=== PATIENT | female | born 1950 | race Caucasian/White ===

== ENCOUNTER → 2017-04-12 | Outpatient (CLI) | payer MEDICARE ==
--- NOTE | 2017-04-12 10:54 | MR ---
EXAMINATION TYPE: MR lumbar spine wo con DATE OF EXAM: 04/12/2017 9:54 AM COMPARISON: NONE HISTORY: lumbago Multiplanar, MultiSpin echo imaging of the lumbar spine was performed. L1-L2: Normal disc appearance without desiccation. No herniation, protrusion or disc bulging. No ca nal stenosis is present. Foramina are patent bilaterally. L2-L3: There is moderate disc desiccation. Mild to moderate circumferential disc bulge noted greatest posteriorly with effacement of the ventral thecal sac. There appears to be mild bilateral lateral re cess stenosis. No evidence for central stenosis at this time. Mild facet arthropathy without foramina l encroachment. L3-L4: There is moderate disc desiccation. Mild to moderate circumferential disc bulge noted greatest posteriorly with effacement of the ventral thecal sac. There is constriction of the thecal sac with borderline stenosis noted. There is degenerative facet joint arthropathy with bilateral foraminal enc roachment seen mild in degree. L4-L5: Severe disc desiccation. Broad-based posterior disc bulge with subligamentous herniation noted paracentrally and to the right. Hypertrophy of the ligamentum flavum and facet joint arthropathy res ulting in [id number] central stenosis. There is bilateral foraminal encroachment moderate in de gree right greater than left. L5-S1: Normal disc appearance without desiccation. No herniation, protrusion or disc bulging. No ca nal stenosis is present. Foramina are patent bilaterally. Lumbar segments are intact. No paraspinal masses are identified. Conus medullaris has a normal appe arance. Scattered hemangiomas are noted. IMPRESSION: 1. Low degenerative disc disease. 2. Central stenosis at L4-5 and borderline mild stenosis at L3-4. See above
== END | disposition home or self-care (01) ==
LOC: RADMRIMAIN 09:08
PROVIDERS: ATTEND Nurse Practitioner Acute Care
DX: M51.36 Other intervertebral disc degeneration, lumbar region (principal); M48.06 Spinal stenosis, lumbar region
CPT/HCPCS: 72148

== ENCOUNTER 2017-04-25 09:33 | Observation (INO) | payer MEDICARE ==
[2017-04-25] MEDS ORDERED: NITROGLYCERIN OINT 1 INCH/GM PACKET TOPICAL STA (09:56)
[2017-04-25] MEDS ORDERED: ASPIRIN 81 MG CHEW PO STA (09:56)
--- NOTE | 2017-04-25 09:59 | ED ---
General Adult HPI - General Chief complaint: Chest Pain Stated complaint: chest pressure, jaw pain Time Seen by Provider: 04/25/17 09:35 Source: patient, RN notes reviewed Mode of arrival: wheelchair Limitations: no limitations - History of Present Illness Initial comments: This is a 67-year-old female who is morbidly obese and has a past medical history significant for diabetes and hypertension. Patient comes in today stating that she has anterior chest discomfort and his been ongoing about a week. Patient states she's also more short of breath than normal. Patient thinks she's also has more edema on her legs. Patient denies any recent fever chills or cough. Patient denies any radiation of the pain. Patient states she also has had a mild headache over the last week. Patient denies any abdominal pain patient denies nausea vomiting diarrhea. Patient denies any calf pain. Patient denies any recent injury or trauma. - Related Data Home Medications Medication Instructions Recorded Confirmed Atenolol [Tenormin] 25 mg PO BID 04/26/15 04/25/17 Cetirizine HCl [Zyrtec] 10 mg PO DAILY 04/26/15 04/25/17 Insulin Glargine [Lantus] 60 unit SQ HS 04/26/15 04/25/17 Multivitamin with Iron [Daily 1 tab PO DAILY 04/26/15 04/25/17 Multivitamin with Iron] Naproxen [Naprosyn] 250 mg PO DAILY PRN 04/26/15 04/25/17 [place]-3 Fatty Acids/Fish Oil [Fish 1 cap PO Q72H 04/26/15 04/25/17 Oil 1,000 mg Softgel] Calcium Carbonate/Vitamin D3 1 tab PO Q72H 08/28/16 04/25/17 [Calcium 600-Vit D3 200 Tablet] Cholecalciferol [Vitamin D3] 3,000 unit PO Q72H 08/28/16 04/25/17 Ginkgo Biloba [place] Extract [Ginkgo] 60 mg PO DAILY 08/28/16 04/25/17 Panax Ginseng Root Extract 100 mg PO DAILY 08/28/16 04/25/17 [Ginseng] Vitamin B Complex 1 cap PO Q72H 08/28/16 04/25/17 metFORMIN HCL [Glucophage] 500 mg PO DAILY 08/28/16 04/25/17 Aspirin 162 mg PO DAILY 04/25/17 04/25/17 Furosemide [Lasix] 20 mg PO DAILY PRN 04/25/17 04/25/17 HYDROcodone/APAP 7.5-325MG [[place] 1 tab PO Q4H PRN 04/25/17 04/25/17 7.5-325] Insulin Aspart [NovoLOG] 6 unit SQ ACHS PRN 04/25/17 04/25/17 Losartan Potassium [Cozaar] 50 mg PO DAILY 04/25/17 04/25/17 Magnesium 200 mg PO Q72H 04/25/17 04/25/17 Potassium Chloride ER [K-Dur 10] 10 meq PO DAILY PRN 04/25/17 04/25/17 Pregabalin [Lyrica] 75 mg PO HS 04/25/17 04/25/17 Ranitidine HCl [Zantac] 300 mg PO DAILY 04/25/17 04/25/17 Sertraline [Zoloft] 50 mg PO DAILY PRN 04/25/17 04/25/17 Allergies Allergy/AdvReac Type Severity Reaction Status Date / Time adhesive tape Allergy Rash/Hives Verified 04/25/17 10:50 Iodinated Contrast Media - Allergy Swelling, Verified 04/25/17 10:50 Oral and SHORTNESS [Iodinated Contrast Media - OF BREATH IV Dye] latex Allergy Rash/Hives Verified 04/25/17 10:50 talc Allergy Rash/Hives Verified 04/25/17 10:50 Review of Systems ROS Statement: Those systems with pertinent positive or pertinent negative responses have been documented in the HPI. ROS Other: All systems not noted in ROS Statement are negative. Past Medical History Past Medical History: CVA/TIA, Diabetes Mellitus, Hypertension, Osteoarthritis ( OA), Thyroid Disorder Additional Past Medical History / Comment(s): NODULES ON THYROID, CURRENT PROBLEMS WITH LOSING HER BALANCE. History of Any Multi-Drug Resistant Organisms: None Reported Past Surgical History: Breast Surgery, Hysterectomy, Tubal Ligation Additional Past Surgical History / Comment(s): TIA 2008, thyroid biopsy, rt knee surgery, TOE SURGERY ON BILATERAL FOOT, D&C, LEFT CATARACT SURGERY. Past Anesthesia/Blood Transfusion Reactions: Motion Sickness Additional Past Anesthesia/Blood Transfusion Reaction / Comment(s): LOW BLOOD PRESSURE WITH SURGERY. STATES PROBLEMS WITH MEMORY WITH ANESTHESIA " Past Psychological History: Anxiety, Bipolar, Depression Smoking Status: Never smoker Past Alcohol Use History: None Reported Past Drug Use History: None Reported - Past Family History Father Family Medical History: Cancer Additional Family Medical History / Comment(s): LUNG, BONE, THROAT AND MOUTH CANCER Brother(s) Family Medical History: Cancer Mother Family Medical History: Cancer Additional Family Medical History / Comment(s): lung cancer- mother General Exam - General Exam Comments Initial Comments: GENERAL: Patient is well-developed and well-nourished. Patient is nontoxic and well- hydrated and is in mild distress. ENT: Neck is soft and supple. No significant lymphadenopathy is noted. Oropharynx is clear. Moist mucous membranes. Neck has full range of motion without eliciting any pain. EYES: The sclera were anicteric and conjunctiva were pink and moist. Extraocular movements were intact and pupils were equal round and reactive to light. Eyelids were unremarkable. PULMONARY: Unlabored respirations. Good breath sounds bilaterally. No audible rales rhonchi or wheezing was noted. CARDIOVASCULAR: There is a regular rate and rhythm without any murmurs gallops or rubs. ABDOMEN: Soft and nontender with normal bowel sounds. No palpable organomegaly was noted. There is no palpable pulsatile mass. SKIN: Skin is clear with no lesions or rashes and otherwise unremarkable. NEUROLOGIC: Patient is alert and oriented x3. Cranial nerves II through XII are grossly intact. Motor and sensory are also intact. Normal speech, volume and content. Symmetrical smile. MUSCULOSKELETAL: Normal extremities with adequate strength and full range of motion. Scant edema at the ankles. LYMPHATICS: No significant lymphadenopathy is noted PSYCHIATRIC: Normal psychiatric evaluation. Normal interpersonal interactions appears functionally intact in deals appropriately with others. No signs of depression. No signs of anxiety. Limitations: no limitations Course Vital Signs 04/25/17 04/25/17 04/25/17 09:35 10:10 11:41 Temperature 99.2 F Pulse Rate 67 69 62 Respiratory 20 18 16 Rate Blood Pressure 233/112 219/87 163/70 O2 Sat by Pulse 95 98 94 L Oximetry Medical Decision Making - Medical Decision Making EKG shows a sinus rhythm with occasional PAC at 73 bpm NV interval 170 QRS is 90 QT interval 370 QTC is 407. Patient's EKG shows no ST segment elevation or depression or T-wave abnormality is noted. Patient's cardiac enzymes are normal but she continues to have intermittent chest pain therefore put her on heparin consider unstable angina. I spoke with Dr. Morrison he admitted the patient I wrote admitting orders and consult cardiology I continue the patient's heparin aspirin Nitropaste on the floor. - Lab Data Result diagrams: 04/25/17 10:04 04/25/17 10:04 Lab Results 04/25/17 04/25/17 04/25/17 Range/Units 10:04 10:04 10:04 WBC 7.7 (3.8-10.6) k/uL RBC 4.62 (3.80-5.40) m/uL Hgb 12.9 (11.4-16.0) gm/dL Hct 39.1 (34.0-46.0) % MCV 84.7 (80.0-100.0) fL MCH 28.0 (25.0-35.0) pg MCHC 33.1 (31.0-37.0) g/dL RDW 14.8 (11.5-15.5) % Plt Count 245 (150-450) k/uL Neutrophils % 55 % Lymphocytes % 33 % Monocytes % 5 % Eosinophils % 5 % Basophils % 1 % Neutrophils # 4.2 (1.3-7.7) k/uL Lymphocytes # 2.5 (1.0-4.8) k/uL Monocytes # 0.4 (0-1.0) k/uL Eosinophils # 0.4 (0-0.7) k/uL Basophils # 0.0 (0-0.2) k/uL PT (9.0-12.0) sec INR (<1.1) APTT (22.0-30.0) sec D-Dimer (<0.60) mg/L FEU Sodium 141 (137-145) mmol/L Potassium 4.0 (3.5-5.1) mmol/L Chloride 104 (98-107) mmol/L Carbon Dioxide 27 (22-30) mmol/L Anion Gap 10 mmol/L BUN 20 H (7-17) mg/dL Creatinine 0.72 (0.52-1.04) mg/dL Est GFR (MDRD) Af Amer >60 (>60 ml/min/1.73 sqM) Est GFR (MDRD) Non-Af >60 (>60 ml/min/1.73 sqM) Glucose 204 H (74-99) mg/dL Calcium 10.3 H (8.4-10.2) mg/dL Magnesium 1.8 (1.6-2.3) mg/dL Total Bilirubin 0.8 (0.2-1.3) mg/dL AST 19 (14-36) U/L ALT 28 (9-52) U/L Alkaline Phosphatase 101 (38-126) U/L Total Creatine Kinase 46 (30-135) U/L CK-MB (CK-2) 1.4 (0.0-2.4) ng/mL CK-MB (CK-2) Rel Index 3.0 Troponin I <0.012 (0.000-0.034) ng/mL NT-Pro-B Natriuret Pep pg/mL Total Protein 6.7 (6.3-8.2) g/dL Albumin 3.9 (3.5-5.0) g/dL Amylase 37 (30-110) U/L Lipase 19 L (23-300) U/L 04/25/17 04/25/17 Range/Units 10:04 10:04 WBC (3.8-10.6) k/uL RBC (3.80-5.40) m/uL Hgb (11.4-16.0) gm/dL Hct (34.0-46.0) % MCV (80.0-100.0) fL MCH (25.0-35.0) pg MCHC (31.0-37.0) g/dL RDW (11.5-15.5) % Plt Count (150-450) k/uL Neutrophils % % Lymphocytes % % Monocytes % % Eosinophils % % Basophils % % Neutrophils # (1.3-7.7) k/uL Lymphocytes # (1.0-4.8) k/uL Monocytes # (0-1.0) k/uL Eosinophils # (0-0.7) k/uL Basophils # (0-0.2) k/uL PT 9.9 (9.0-12.0) sec INR 1.0 (<1.1) APTT 22.5 (22.0-30.0) sec D-Dimer 0.49 (<0.60) mg/L FEU Sodium (137-145) mmol/L Potassium (3.5-5.1) mmol/L Chloride (98-107) mmol/L Carbon Dioxide (22-30) mmol/L Anion Gap mmol/L BUN (7-17) mg/dL Creatinine (0.52-1.04) mg/dL Est GFR (MDRD) Af Amer (>60 ml/min/1.73 sqM) Est GFR (MDRD) Non-Af (>60 ml/min/1.73 sqM) Glucose (74-99) mg/dL Calcium (8.4-10.2) mg/dL Magnesium (1.6-2.3) mg/dL Total Bilirubin (0.2-1.3) mg/dL AST (14-36) U/L ALT (9-52) U/L Alkaline Phosphatase (38-126) U/L Total Creatine Kinase (30-135) U/L CK-MB (CK-2) (0.0-2.4) ng/mL CK-MB (CK-2) Rel Index Troponin I (0.000-0.034) ng/mL NT-Pro-B Natriuret Pep 442 pg/mL Total Protein (6.3-8.2) g/dL Albumin (3.5-5.0) g/dL Amylase (30-110) U/L Lipase (23-300) U/L Disposition Clinical Impression: Unstable angina pectoris Disposition: ADMITTED IP TO THIS [facility] Referrals: Hattie Galeano DO [Primary Care Provider] - 1-2 days Time of Disposition: 13:03
[2017-04-25 10:30] LABS: Basophils % (A) 1 %; CH 28.8; CHCM 34.2; Eosinophils # (A) 0.4 k/uL (0-0.7); Eosinophils % (A) 5 %; HCT 39.1 % (34.0-46.0); HDW 3.11; HGB 12.9 gm/dL (11.4-16.0); Luc # (Auto) 0.19; Luc % (Auto) 3; Lymphocytes # (A) 2.5 k/uL (1.0-4.8); Lymphocytes % (A) 33 %; MCHC 33.1 g/dL (31.0-37.0); MCV 84.7 fL (80.0-100.0); Mean Platelet Volume 6.8; Monocytes # (A) 0.4 k/uL (0-1.0); Monocytes % (A) 5 %; Neutrophils # (A) 4.2 k/uL (1.3-7.7); Neutrophils % (A) 55 %; RBC 4.62 m/uL (3.80-5.40); RDW 14.8 % (11.5-15.5); WBC 7.7 k/uL (3.8-10.6)
[2017-04-25 10:31] LABS: ALT 28 U/L (9-52); AST 19 U/L (14-36); Alkaline Phosphatase 101 U/L (38-126); Amylase 37 U/L (30-110); Anion Gap 10 mmol/L; Blood Urea Nitrogen 20 mg/dL (7-17); Calcium 10.3 mg/dL (8.4-10.2); Carbon Dioxide 27 mmol/L (22-30); Chloride 104 mmol/L (98-107); Glucose 204 mg/dL (74-99); Magnesium 1.8 mg/dL (1.6-2.3); Non-African American GFR(MDRD) >60 (>60 ml/min/1.73 sqM); Sodium 141 mmol/L (137-145); Total Bilirubin 0.8 mg/dL (0.2-1.3); Total Protein 6.7 g/dL (6.3-8.2)
[2017-04-25 10:39] LABS: Partial Thromboplastin Time 22.5 sec (22.0-30.0); Prothrombin Time 9.9 sec (9.0-12.0)
[2017-04-25 10:46] LABS: Creatine Kinase 46 U/L (30-135)
[2017-04-25 10:57] LABS: Creatine Kinase MB 1.4 ng/mL (0.0-2.4); Troponin I <0.012 ng/mL (0.000-0.034)
--- NOTE | 2017-04-25 11:15 | XR ---
EXAMINATION TYPE: XR chest 2V DATE OF EXAM: 04/25/2017 COMPARISON: NONE HISTORY: Chest pain for one week. TECHNIQUE: Frontal and lateral views of the chest are obtained. FINDINGS: There is no focal air space opacity, pleural effusion, or pneumothorax seen. There is slig htly elevated anterior leaflet of right hemidiaphragm. The cardiac silhouette size is within normal limits with atherosclerotic change in aortic knob. The osseous structures are intact. IMPRESSION: No acute process.
[2017-04-25] MEDS ORDERED: HEPARIN SODIUM,PORCINE 5,000 UNIT/ML 1 ML VIAL IV ONE (12:23)
[2017-04-25] MEDS ORDERED: HEPARIN SODIUM,PORCINE/D5W PMX 25,000 UNIT in DEXTROSE/WATER 1 500ML.BAG IV SCH (12:30)
[2017-04-25] MEDS ORDERED: NITROGLYCERIN SL TABS 0.4 MG TAB SUBLINGUAL PRN (13:03)
[2017-04-25 13:31] VITALS: RESP 18
[2017-04-25] MEDS ORDERED: NAPROXEN 250 MG TAB PO PRN (16:00)
[2017-04-25] MEDS ORDERED: POTASSIUM CHLORIDE ER 10 MEQ TAB.ER.PRT PO PRN (16:00)
[2017-04-25] MEDS ORDERED: FUROSEMIDE 20 MG TAB PO PRN (16:00)
[2017-04-25] MEDS ORDERED: HYDROcodone/APAP 7.5-325MG 1 EACH TAB PO PRN (16:00)
[2017-04-25] MEDS ORDERED: hydrALAZINE HCL 20 MG/ML 1 ML VIAL IVP PRN (16:08)
[2017-04-25] MEDS ORDERED: LOSARTAN 50 MG TAB PO STA (16:13)
[2017-04-25 16:36] LABS: Creatine Kinase 40 U/L (30-135)
[2017-04-25 16:50] LABS: Troponin I <0.012 ng/mL (0.000-0.034)
[2017-04-25 17:12] LABS: Glucose,Whole Blood 162 mg/dL (75-99)
--- NOTE | 2017-04-25 17:52 | CONS ---
DATE OF CONSULTATION: CHIEF COMPLAINT: Uncontrolled hypertension. This is a 67-year-old lady who is morbidly obese, has history of diabetes and hypertension. She comes in complaining of poorly controlled blood pressures and some discomfort in her chest. She describes it as a mild chest pressure without definite radiation to neck, arm or back, unassociated with diaphoresis and unrelated to exertion. At the time of my evaluation she is pain-free and she states that her main problem is the poorly controlled blood pressure. Two sets of cardiac enzymes have been negative. An EKG shows sinus rhythm without acute ST-T wave changes. Blood pressure is still somewhat poorly controlled, and I just altered her medication. I think the first order of business is to control her blood pressure well, obtain a 2-D echo to assess her LV function, and once the blood pressure is well controlled, discharge her home and consider an outpatient stress test. Past medical history is significant for: 1. Hypertension. 2. Insulin-requiring diabetes. 3. Dyslipidemia. Current medications include: 1. Insulin. 2. Magnesium. 3. Cozaar. 4. Glucophage. 5. Zyrtec. 6. Lasix. 7. Atenolol. 8. Aspirin. 9. K-Dur. ALLERGIES: 1. IV DYE. 2. TALC. 3. LATEX. Family history is negative for premature coronary artery disease. SOCIAL HISTORY: Negative for current smoking, ETOH abuse or drug abuse. REVIEW OF SYSTEMS: HEENT: Unremarkable. CARDIAC: As described above. RESPIRATORY: Negative. GI: Negative. GENITOURINARY: Negative. ALLERGY/IMMUNOLOGY: Negative. MUSCULOSKELETAL: Significant for arthritis. PSYCHOSOCIAL: Negative. ENDOCRINE: Negative. DERMATOLOGY: Negative. CONSTITUTIONAL: Negative. ONCOLOGICAL: Negative. The rest of the systems review is not relevant. On exam, afebrile. Heart rate is 68 beats per minute. Blood pressure is 210/127. Respiratory rate is 18. There is ( ) jugular venous distention. Carotid upstroke is normal. There is no bruit. Chest exam reveals good air entry bilaterally. Heart exam reveals first and second heart sounds and S4 is heard. Abdomen is soft. Examination of extremities did not reveal any edema. Peripheral pulses are felt. Labs show that the hemoglobin is 12.9. Platelet count is 245. Potassium is 4. Creatinine is 0.7. Troponins are normal. EKG does not reveal ischemic changes. ASSESSMENT: 1. Severe uncontrolled hypertension. 2. Chest pain, probably related to the uncontrolled hypertension. PLAN: Myocardial infarction is ruled out. I am going to ( ) the IV heparin, add Norvasc and hydralazine to her current medical regimen. If necessary add Catapres tomorrow. I will obtain a 2-D echocardiogram on her to assess her LV function.
[2017-04-25] MEDS: hydrALAZINE HCL 50 MG TAB PO SCH ×2 (18:39→20:16)
[2017-04-25] MEDS: NITROGLYCERIN OINT 1 INCH/GM PACKET TOPICAL SCH (18:41)
[2017-04-25] MEDS: ATENOLOL 25 MG TAB PO SCH (20:16)
[2017-04-25 20:43] LABS: Glucose,Whole Blood 298 mg/dL (75-99)
[2017-04-25] MEDS ORDERED: INSULIN GLARGINE 100 UNIT/ML 10 ML VIAL SQ SCH (21:00)
[2017-04-25] MEDS ORDERED: SERTRALINE 50 MG TAB PO PRN (21:00)
[2017-04-25] MEDS ORDERED: PREGABALIN 75 MG CAP PO SCH (21:00)
[2017-04-25] MEDS: INSULIN LISPRO (humaLOG) 300 UNIT/3 ML VIAL SQ SCH (21:27)
[2017-04-25 23:22] LABS: Creatine Kinase 36 U/L (30-135)
[2017-04-25 23:32] LABS: Creatine Kinase MB 1.2 ng/mL (0.0-2.4); Troponin I <0.012 ng/mL (0.000-0.034)
[2017-04-26] MEDS: NITROGLYCERIN OINT 1 INCH/GM PACKET TOPICAL SCH ×3 (00:20→12:02)
[2017-04-26 03:49] LABS: Cholesterol 187 mg/dL (<200); HDL Cholesterol 48 mg/dL (40-60); Triglycerides 117 mg/dL (<150)
[2017-04-26 07:05] LABS: Glucose,Whole Blood 147 mg/dL (75-99)
[2017-04-26 08:21] VITALS: PULSE 74; TEMP 98.6
[2017-04-26] MEDS: hydrALAZINE HCL 50 MG TAB PO SCH (08:23)
[2017-04-26] MEDS: ATENOLOL 25 MG TAB PO SCH (08:24)
[2017-04-26] MEDS: INSULIN LISPRO (humaLOG) 300 UNIT/3 ML VIAL SQ SCH ×4 (08:25→12:09)
--- NOTE | 2017-04-26 08:27 | PN ---
Karly is a 67-year-old lady who was admitted to hospital with severe uncontrolled blood pressure and vague atypical chest pain. She is doing very well this morning. Blood pressure is better controlled. Chest pain has resolved. Myocardial infarction is ruled out. On exam, comfortable at rest. Vital signs are stable. There is no jugular venous distention. Carotid upstroke is normal. Chest exam reveals good air entry bilaterally. Exam of the extremities did not reveal any edema. The patient is on amlodipine 10 mg daily, aspirin, Tenormin 25 b.i.d., Cozaar 100 mg daily, which she is going to continue. ASSESSMENT: 1. Uncontrolled hypertension. 2. Atypical chest pain. PLAN: The patient is doing well. Myocardial infarction is ruled out. Blood pressures are better controlled. We will do an echocardiogram on her. If this looks good, she can be discharged home and workup pursued in the outpatient setting.
[2017-04-26] MEDS ORDERED: LOSARTAN 50 MG TAB PO SCH (09:00)
[2017-04-26] MEDS ORDERED: ASPIRIN 81 MG CHEW PO SCH (09:00)
[2017-04-26] MEDS ORDERED: amLODIPine 10 MG TAB PO SCH (09:00)
[2017-04-26] MEDS ORDERED: metFORMIN 500 MG TAB PO SCH (09:00)
[2017-04-26] MEDS ORDERED: ASPIRIN 325 MG TAB PO SCH (09:00)
[2017-04-26] MEDS ORDERED: LORATADINE 10 MG TAB PO SCH (09:00)
[2017-04-26] MEDS ORDERED: FAMOTIDINE 20 MG TAB PO SCH (09:00)
--- NOTE | 2017-04-26 09:22 | ECHOF ---
Referral Reason:chest pain MEASUREMENTS -------- HEIGHT: 167.6 cm WEIGHT: 136.1 kg BP: 147/70 RVIDd: 2.3 cm (< 3.3) IVSd: 1.6 cm (0.6 - 1.1) LVIDd: 4.4 cm (3.9 - 5.3) LVPWd: 1.5 cm (0.6 - 1.1) IVSs: 1.8 cm LVIDs: 2.7 cm LVPWs: 1.8 cm LAESV Index (A-L): 21.53 ml/m Ao Diam: 3.1 cm (2.0 - 3.7) AV Cusp: 2.0 cm (1.5 - 2.6) LA Diam: 4.2 cm (2.7 - 3.8) MV EXCURSION: 14.230 mm (> 18.000) MV EF SLOPE: 78 mm/s (70 - 150) EPSS: 0.7 cm MV E Rocky: 1.28 m/s MV DecT: 325 ms MV A Rocky: 1.31 m/s MV E/A Ratio: 0.97 RAP: 5.00 mmHg RVSP: 8.09 mmHg FINDINGS -------- Sinus rhythm with extra systolic beats. This was a technically adequate study. There is moderate concentric left ventricular hypertrophy. Overall left ventricular systolic function is normal with, an EF between 55 - 60 %. The right ventricle is normal in size and function. Normal LA size by volume 22+/-6 ml/m2. The right atrium is normal in size. Aortic valve is trileaflet and is mildly thickened. There is no evidence of aortic regurgitation. There is no evidence of aortic stenosis. The mitral valve leaflets are mildly thickened. There is trace to mild mitral regurgitation. Trace tricuspid regurgitation present. There is no evidence of pulmonary hypertension. The right ventricular systolic pressure, as measured by Doppler, is 8.09mmHg. The pulmonic valve was not well visualized. The aortic root size is normal. Normal inferior vena cava with normal inspiratory collapse consistent with estimated right atrial pressure of 5 mmHg. The pericardium is normal. There is no pericardial effusion. CONCLUSIONS -------- 1. Sinus rhythm with extra systolic beats. 2. The right ventricular systolic pressure, as measured by Doppler, is 8.09mmHg. 3. The pulmonic valve was not well visualized. 4. The aortic root size is normal. 5. There is no pericardial effusion. 6. There is moderate concentric left ventricular hypertrophy. 7. Overall left ventricular systolic function is normal with, an EF between 55 - 60 %. 8. Normal LA size by volume 22+/-6 ml/m2. 9. Aortic valve is trileaflet and is mildly thickened. 10. The mitral valve leaflets are mildly thickened. 11. There is trace to mild mitral regurgitation. 12. Trace tricuspid regurgitation present. 13. There is no evidence of pulmonary hypertension. HORTICULTURAL WORKER: John Davis RDCS
--- NOTE | 2017-04-26 10:56 | P.HPIM ---
History of Present Illness H&P Date: 04/26/17 Chief Complaint: Chest pain Is a 67-year-old female with a known past medical history of diabetes mellitus type 2, hypertension, CVA, and depression. Patient presents to emergency room with complaints of chest pain or not-like symptom in the center of her chest. She also had some numbness in the jaw. She's been dealing with this pain for about a week with no improvement. Therefore she came into the emergency room for further evaluation. She also noted that her symptoms sometimes worsened with food. She was found to have a blood pressure of 233/112. She did receive IVIG hydralazine. Cardiology was consulted. They added Norvasc hydralazine and Cozaar. Troponins were negative 3 sets. Chest x-ray was negative and EKG had shown sinusrhythmwithPACs.[id number]%.MIhadbeenruledout.Patient' schestpainsymptomshaveimprovedsincecontrolofherbloodpressure. Patient denies any shortness of breath. Denies any nausea or vomiting. Denies any new bowel movement changes. She does constantly have a few days of constipation and then diarrhea. And she reports her bowel movements have all been brown. About 3 weeks ago she noticed one black stool. And her last colonoscopy was in 2006. She reports having some polyps removed. Hemoglobin is 12.9. 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 History of Any Multi-Drug Resistant Organisms: None Reported Past Surgical History: Breast Surgery, Hysterectomy, Orthopedic Surgery, Tubal Ligation Additional Past Surgical History / Comment(s): thyroid biopsies, rt knee arthroscopic surgery, bilateral feet hammer toe repairs, D&C, bilateral CATARACT SURGERY with lens implants, colonoscopies, bilateral breast lumpectomies-benign, tilt table test. Past Anesthesia/Blood Transfusion Reactions: Motion Sickness Additional Past Anesthesia/Blood Transfusion Reaction / Comment(s): LOW BLOOD PRESSURE WITH SURGERY. STATES PROBLEMS WITH MEMORY WITH ANESTHESIA " Past Psychological History: Anxiety, Bipolar, Depression Additional Psychological History / Comment(s): Pt states she has manic/ depression. She takes zoloft when she feels she needs it. She resides with her spouse. She usea a cane at times. she drives. Her is not well-he has dementia and heart problems. She has no home care but he has [facility] once a week. Smoking Status: Never smoker Past Alcohol Use History: None Reported Past Drug Use History: None Reported - Past Family History Father Family Medical History: Cancer Additional Family Medical History / Comment(s): Father had lymphoma. He had LUNG, BONE, THROAT AND MOUTH CANCER Brother(s) Family Medical History: Cancer Mother Family Medical History: Cancer Additional Family Medical History / Comment(s): lung cancer- mother. She at the age of 79yrs from esophageal valencia after radiation-unable to eat. Medications and Allergies Home Medications Medication Instructions Recorded Confirmed Type Atenolol [Tenormin] 25 mg PO BID 04/26/15 04/25/17 History Cetirizine HCl [Zyrtec] 10 mg PO DAILY 04/26/15 04/25/17 History Insulin Glargine [Lantus] 60 unit SQ HS 04/26/15 04/25/17 History Multivitamin with Iron [Daily 1 tab PO DAILY 04/26/15 04/25/17 History Multivitamin with Iron] Naproxen [Naprosyn] 250 mg PO DAILY PRN 04/26/15 04/25/17 History [place]-3 Fatty Acids/Fish Oil [Fish 1 cap PO Q72H 04/26/15 04/25/17 History Oil 1,000 mg Softgel] Calcium Carbonate/Vitamin D3 1 tab PO Q72H 08/28/16 04/25/17 History [Calcium 600-Vit D3 200 Tablet] Cholecalciferol [Vitamin D3] 3,000 unit PO Q72H 08/28/16 04/25/17 History Ginkgo Biloba [place] Extract [Ginkgo] 60 mg PO DAILY 08/28/16 04/25/17 History Panax Ginseng Root Extract 100 mg PO DAILY 08/28/16 04/25/17 History [Ginseng] Vitamin B Complex 1 cap PO Q72H 08/28/16 04/25/17 History metFORMIN HCL [Glucophage] 500 mg PO DAILY 08/28/16 04/25/17 History Aspirin 162 mg PO DAILY 04/25/17 04/25/17 History Furosemide [Lasix] 20 mg PO DAILY PRN 04/25/17 04/25/17 History HYDROcodone/APAP 7.5-325MG [[place] 1 tab PO Q4H PRN 04/25/17 04/25/17 History 7.5-325] Insulin Aspart [NovoLOG] 6 unit SQ AC-TID PRN 04/25/17 04/25/17 History Insulin Aspart [NovoLOG] See Protocol SQ AC-TID 04/25/17 04/25/17 History Losartan Potassium [Cozaar] 50 mg PO DAILY 04/25/17 04/25/17 History Magnesium 200 mg PO Q72H 04/25/17 04/25/17 History Potassium Chloride ER [K-Dur 10] 10 meq PO DAILY PRN 04/25/17 04/25/17 History Pregabalin [Lyrica] 75 mg PO HS 04/25/17 04/25/17 History Ranitidine HCl [Zantac] 300 mg PO DAILY 04/25/17 04/25/17 History Sertraline [Zoloft] 50 mg PO DAILY PRN 04/25/17 04/25/17 History Allergies Allergy/AdvReac Type Severity Reaction Status Date / Time adhesive tape Allergy Rash/Hives Verified 04/25/17 10:50 Iodinated Contrast Media - Allergy Swelling, Verified 04/25/17 10:50 Oral and SHORTNESS [Iodinated Contrast Media - OF BREATH IV Dye] latex Allergy Rash/Hives Verified 04/25/17 10:50 talc Allergy Rash/Hives Verified 04/25/17 10:50 Physical Exam Vitals: Vital Signs Temp Pulse Pulse Resp BP BP Pulse Ox 04/26/17 08:00 98.6 F 74 18 139/67 94 L 04/26/17 04:00 98 F 81 18 147/70 97 04/26/17 03:00 87 18 04/25/17 23:44 98.4 F 69 18 173/74 96 04/25/17 23:38 73 18 04/25/17 20:00 71 18 04/25/17 19:38 98.1 F 69 18 171/74 100 04/25/17 18:15 214/88 04/25/17 15:12 98.4 F 68 18 210/127 96 04/25/17 13:30 97.6 F 62 18 180/76 97 04/25/17 11:41 62 16 163/70 94 L Intake and Output 04/25/17 04/26/17 04/26/17 22:59 06:59 14:59 Intake Total 360 420 Balance 360 420 Intake: Oral 360 420 Other: Voiding Method Toilet Toilet Toilet # Voids 2 2 Head normocephalic Neck supple Lungs clear to auscultation bilaterally no wheezing or crackles Heart regular rate and rhythm S1-S2, no rub or gallop Abdomen is soft nontender nondistended positive bowel sounds no hepatosplenomegaly Extremities no edema Neuro alert and orientated to 3 Results CBC & Chem 7: 04/25/17 10:04 04/25/17 10:04 Labs: Abnormal Lab Results - Last 24 Hours (Table) 04/25/17 04/25/17 04/25/17 Range/Units 10:04 17:09 20:40 POC Glucose (mg/dL) 162 H 298 H (75-99) mg/dL LDL Cholesterol, Calc 116 H (0-99) mg/dL 04/26/17 Range/Units 07:02 POC Glucose (mg/dL) 147 H (75-99) mg/dL LDL Cholesterol, Calc (0-99) mg/dL Thrombosis Risk Factor Assmnt - Choose All That Apply Any of the Below Risk Factors Present?: Yes Each Factor Represents 1 point: Obesity (BMI >25) Other Risk Factors: Yes Each Risk Factor Represents 2 Points: Age 61-74 years Other congenital or acquired thrombophilia - If yes, enter type in comment: No Thrombosis Risk Factor Assessment Total Risk Factor Score: 3 Thrombosis Risk Factor Assessment Level: Moderate Risk Assessment and Plan Plan: 1. Chest pain likely secondary to the elevated blood pressures. PA ruled out. Troponins negative 3 sets. EKG normal sinus rhythm with PACs. Cardiology evaluated patient. Echo showing an EF of 55-60% with trace mitral regurgitation and tricuspid regurgitation. 2. Hypertensive emergency: Blood pressure 233/112 on admission. After medications blood pressure this morning is 139/67. Norvasc, hydralazine and Cozaar have been added 3. Diabetes mellitus type 2 4. Essential hypertension 5. History of CVA in 2008 Anticipate discharge this afternoon. Time with Patient: Greater than 30 (Greater than 50% of the total time spent in counseling and coordination of care.I performed an examination of the patient and discussed their management with the physician Retail Seasonal Specialist. I have reviewed the Physician Retail Seasonal Specialist's notes and agree with the documented findings and plan of care)
--- NOTE | 2017-04-26 11:08 | P.DS ---
Providers Date of admission: 04/25/17 13:03 Expected date of discharge: 04/26/17 Attending physician: Orestes Morrison Consults: 04/25/17 13:03 Consult Physician Urgent Consulting Provider: [facility] Reason/Comments: Unstable angina Do you want consulting provider notified?: Yes Primary care physician: [facility] Course: Discharge diagnosis 1. Chest pain likely secondary to the elevated blood pressures. IL ruled out. Troponins negative 3 sets. EKG normal sinus rhythm with PACs. Cardiology evaluated patient. Echo showing an EF of 55-60% with trace mitral regurgitation and tricuspid regurgitation and left hypertrophy 2. Hypertensive emergency: Blood pressure 233/112 on admission. After medications blood pressure this morning is 139/67. Norvasc, hydralazine and Cozaar have been added 3. Diabetes mellitus type 2 4. Essential hypertension 5. History of CVA in 2008 6. Patient reports black stools at home about 3 weeks ago. Stools within the last couple weeks and yesterday were out brown. Hemoglobin 12.9. Last colonoscopy 2006 and will likely need another colonoscopy workup completed an outpatient setting. This has been discussed with patient. We'll have her follow-up with her PCP in the office. Hospital course This is a 67-year-old female presented with just chest pain in the center of her chest felt like not. Also some numbness in the jaw bilaterally. She was found have elevated blood pressure 233/112. Was given IV hydralazine. She was admitted to observation. IL was ruled out. Troponins were negative 3 sets. EKG normal sinus rhythm. Chest x-ray negative. Echo shows an EF of 55-60% with trace mitral regurgitation and tricuspid regurgitation with left ventricle hypertrophy. Cardiology added medications including Norvasc hydralazine and increase the Cozaar to 100 mg daily. Blood pressures are controlled this morning at 139/67. Chest pain has resolved. She is stable for discharge. She' ll follow-up with cardiology in the outpatient setting. Patient Condition at Discharge: Stable Plan - Discharge Summary New Discharge Prescriptions: New amLODIPine [Norvasc] 10 mg PO DAILY #30 tab hydrALAZINE HCL [Apresoline] 50 mg PO QID #120 tab Losartan [Cozaar] 100 mg PO DAILY #30 tab Continue Cetirizine HCl [Zyrtec] 10 mg PO DAILY Atenolol [Tenormin] 25 mg PO BID [place]-3 Fatty Acids/Fish Oil [Fish Oil 1,000 mg Softgel] 1 cap PO Q72H Naproxen [Naprosyn] 250 mg PO DAILY PRN PRN Reason: Pain Multivitamin with Iron [Daily Multivitamin with Iron] 1 tab PO DAILY Insulin Glargine [Lantus] 60 unit SQ HS metFORMIN HCL [Glucophage] 500 mg PO DAILY Cholecalciferol [Vitamin D3] 3,000 unit PO Q72H Ginkgo Biloba [place] Extract [Ginkgo] 60 mg PO DAILY Vitamin B Complex 1 cap PO Q72H Calcium Carbonate/Vitamin D3 [Calcium 600-Vit D3 200 Tablet] 1 tab PO Q72H Panax Ginseng Root Extract [Ginseng] 100 mg PO DAILY Ranitidine HCl [Zantac] 300 mg PO DAILY Insulin Aspart [NovoLOG] 6 unit SQ AC-TID PRN PRN Reason: Blood Sugar - High HYDROcodone/APAP 7.5-325MG [[place] 7.5-325] 1 tab PO Q4H PRN PRN Reason: Pain Furosemide [Lasix] 20 mg PO DAILY PRN PRN Reason: Edema Aspirin 162 mg PO DAILY Sertraline [Zoloft] 50 mg PO DAILY PRN PRN Reason: Anxiety Pregabalin [Lyrica] 75 mg PO HS Potassium Chloride ER [K-Dur 10] 10 meq PO DAILY PRN PRN Reason: Taken with Lasix Magnesium 200 mg PO Q72H Insulin Aspart [NovoLOG] See Protocol SQ AC-TID Discontinued Losartan Potassium [Cozaar] 50 mg PO DAILY Discharge Medication List Atenolol [Tenormin] 25 mg PO BID 04/26/15 [History] Cetirizine HCl [Zyrtec] 10 mg PO DAILY 04/26/15 [History] Insulin Glargine [Lantus] 60 unit SQ HS 04/26/15 [History] Multivitamin with Iron [Daily Multivitamin with Iron] 1 tab PO DAILY 04/26/15 [ History] Naproxen [Naprosyn] 250 mg PO DAILY PRN 04/26/15 [History] [place]-3 Fatty Acids/Fish Oil [Fish Oil 1,000 mg Softgel] 1 cap PO Q72H 04/26/15 [History] Calcium Carbonate/Vitamin D3 [Calcium 600-Vit D3 200 Tablet] 1 tab PO Q72H 08/28 [History] Cholecalciferol [Vitamin D3] 3,000 unit PO Q72H 08/28/16 [History] Ginkgo Biloba [place] Extract [Ginkgo] 60 mg PO DAILY 08/28/16 [History] Panax Ginseng Root Extract [Ginseng] 100 mg PO DAILY 08/28/16 [History] Vitamin B Complex 1 cap PO Q72H 08/28/16 [History] metFORMIN HCL [Glucophage] 500 mg PO DAILY 08/28/16 [History] Aspirin 162 mg PO DAILY 04/25/17 [History] Furosemide [Lasix] 20 mg PO DAILY PRN 04/25/17 [History] HYDROcodone/APAP 7.5-325MG [[place] 7.5-325] 1 tab PO Q4H PRN 04/25/17 [History] Insulin Aspart [NovoLOG] 6 unit SQ AC-TID PRN 04/25/17 [History] Insulin Aspart [NovoLOG] See Protocol SQ AC-TID 04/25/17 [History] Magnesium 200 mg PO Q72H 04/25/17 [History] Potassium Chloride ER [K-Dur 10] 10 meq PO DAILY PRN 04/25/17 [History] Pregabalin [Lyrica] 75 mg PO HS 04/25/17 [History] Ranitidine HCl [Zantac] 300 mg PO DAILY 04/25/17 [History] Sertraline [Zoloft] 50 mg PO DAILY PRN 04/25/17 [History] Losartan [Cozaar] 100 mg PO DAILY #30 tab 04/26/17 [Rx] amLODIPine [Norvasc] 10 mg PO DAILY #30 tab 04/26/17 [Rx] hydrALAZINE HCL [Apresoline] 50 mg PO QID #120 tab 04/26/17 [Rx] Follow up Appointment(s)/Referral(s): Joshua Acevedo MD [STAFF PHYSICIAN] - 6 Weeks Hattie Galeano DO [Primary Care Provider] - 1 Week Activity/Diet/Wound Care/Special Instructions: Diet: cardiac, diabetic Activity: as tolerated Discharge Disposition: HOME SELF-CARE
[2017-04-26] MEDS ORDERED: CYANOCOBALAMIN-FA-PYRIDOXINE 1 EACH TAB PO SCH (12:00)
[2017-04-26] MEDS ORDERED: MULTIVITAMINS, THERA 1 EACH TAB PO SCH (12:00)
[2017-04-26] MEDS ORDERED: CALCIUM CARB-VIT D 500MG-200UN 1 EACH TAB PO SCH (12:00)
[2017-04-26 12:10] LABS: Glucose,Whole Blood 279 mg/dL (75-99)
[2017-04-26 12:15] VITALS: BP 168/69
== END 2017-04-26 13:35 | disposition home or self-care (01) ==
LOC: EC 09:33 → 3OBS 13:03
PROVIDERS: ADMIT Internal Medicine; ATTEND Internal Medicine
DX: I20.0 Unstable angina (principal); I10 Essential (primary) hypertension; E66.01 Morbid (severe) obesity due to excess calories; E11.9 Type 2 diabetes mellitus without complications; R60.0 Localized edema; R51 Headache; M19.90 Unspecified osteoarthritis, unspecified site; E07.9 Disorder of thyroid, unspecified; E04.1 Nontoxic single thyroid nodule; F41.9 Anxiety disorder, unspecified; F31.9 Bipolar disorder, unspecified; E78.5 Hyperlipidemia, unspecified; Z79.4 Long term (current) use of insulin; K21.9 Gastro-esophageal reflux disease without esophagitis; G47.33 Obstructive sleep apnea (adult) (pediatric); I16.1 Hypertensive emergency; Z68.42 Body mass index [BMI] 45.0-49.9, adult; Z79.84 Long term (current) use of oral hypoglycemic drugs; Z79.82 Long term (current) use of aspirin; Z79.899 Other long term (current) drug therapy; Z91.041 Radiographic dye allergy status; Z91.040 Latex allergy status; Z91.048 Other nonmedicinal substance allergy status; Z86.73 Personal history of transient ischemic attack (TIA), and cerebral infarction without residual deficits
CPT/HCPCS: 96376; 96365; 96366; 99285; 36415; 93005; 93306; 85379; 83880; 80061; 80053; 82150; 82550; 82553; 83690; 83735; 84484; 85025; 85610; 85730; 71020; G0378 ×2; J1644 ×2

== ENCOUNTER → 2017-05-15 | Outpatient (CLI) | payer MEDICARE ==
--- NOTE | 2017-05-17 09:56 | MM ---
Reason for exam: clinical finding. Last mammogram was performed 1 year and 7 months ago. History: Patient is postmenopausal. 2 excisional biopsies of the left breast. Excisional biopsy of the right breast. Took estrogen for 2 years beginning at age 48. Indicated problem(s): pain in the right breast. Physical Findings: Nurse did not find any significant physical abnormalities on exam. MG 3D Diag Mammo W/Cad JERZY Bilateral CC and MLO view(s) were taken. Prior study comparison: October 18, 2015, bilateral MG 3d screening mammo w/cad. There are scattered fibroglandular densities. Focal asymmetry in the anterior upper outer quadrant of the right breast. No significant new findings when compared with previous films. These results were verbally communicated with the patient and result sheet given to the patient on 05/15/17. ASSESSMENT: Benign, BI-RAD 2 RECOMMENDATION: Routine screening mammogram of both breasts in 1 year. Manage patient on a clinical basis.
== END | disposition home or self-care (01) ==
LOC: RADMAMWWP 12:50
PROVIDERS: ATTEND Family Medicine
DX: N64.4 Mastodynia (principal)
CPT/HCPCS: G0204; G0279

== ENCOUNTER → 2017-06-27 | Outpatient (CLI) | payer MEDICARE ==
--- NOTE | 2017-06-27 15:49 | USB ---
EXAMINATION TYPE: US breast complete RT DATE OF EXAM: 06/27/2017 COMPARISON: NONE CLINICAL HISTORY: Breast Pain, N64.4. Right breast pain Right breast ultrasound was performed from the 1:00 to 12:00 positions, posterior to the nipple, and within the axillary tail for the patient's stated right breast pain. Incidentally noted at the 11:00 position there is an anechoic, avascular 1.6 x 0.3 x 1.8 cm area extending along the tissue planes mo st likely related to a solitary prominent duct without filling defect. Alternatively this could repre sent a simple cyst. IMPRESSION: Benign right breast findings. Clinical management is recommended the patient's right robson ast pain. Annual screening mammography is also recommended.
== END | disposition home or self-care (01) ==
LOC: RADUSWWP 13:53
PROVIDERS: ATTEND Family Medicine
DX: N64.4 Mastodynia (principal)

== ENCOUNTER → 2017-07-24 | Outpatient (CLI) | payer MEDICARE ==
--- NOTE | 2017-07-24 09:54 | NM ---
Nuclear medicine hepatobiliary scan. HISTORY: Pain. DOSAGE: The patient received 8 ounces of ensure plus of CCK and 5.3 mCi of Technetium 99m Choletec. FINDINGS: There is heterogeneous hepatic extraction. The gallbladder is seen by 60 minutes. There is biliary to bowel clearance by 20 minutes. Ejection fraction is 91%. IMPRESSION: 1. Hepatic extraction is somewhat heterogeneous correlate with liver function studies or ultrasound. 2. Ejection fraction of 91% seen with hyperdynamic gallbladder correlate clinically. 3. Gallbladder is seen at 60 minutes which is the upper limits of normal.
== END | disposition home or self-care (01) ==
LOC: RADNMMAIN 06:52
PROVIDERS: ATTEND Family Medicine
DX: K82.8 Other specified diseases of gallbladder (principal)
CPT/HCPCS: 78226; A9537

== ENCOUNTER → 2017-08-22 | Outpatient (CLI) | payer MEDICARE ==
[2017-08-22 14:17] LABS: Blood Urea Nitrogen 20 mg/dL (7-17); Non-African American GFR(MDRD) 54 (>60 ml/min/1.73 sqM); Potassium 5.1 mmol/L (3.5-5.1)
== END | disposition home or self-care (01) ==
LOC: LABPAT 13:20
PROVIDERS: ATTEND Surgery
DX: Z01.812 Encounter for preprocedural laboratory examination (principal)
CPT/HCPCS: 82565; 84132; 84520

== ENCOUNTER 2017-08-27 06:22 | Day surgery (SDC) | payer MEDICARE ==
[2017-08-21 14:22] VITALS: BMI 49.3
[~2017-08-27 06:22] MED LIST: DEXAMETHASONE SOD PHOSPHATE 10 MG/ML 1 ML VIAL IV ONE; HEPARIN SODIUM,PORCINE 5,000 UNIT/ML 1 ML VIAL SQ ONE; HYDROmorphone 0.5 MG/0.5 ML SYRINGE IVP PRN; MIDAZOLAM 2 MG/2 ML VIAL IV PRN; ONDANSETRON 4 MG/2 ML VIAL IVP ONE
[2017-08-27 07:05] LABS: Glucose,Whole Blood 189 mg/dL (75-99)
[2017-08-27] MEDS: LACTATED RINGERS 1,000 ML IV SCH ×2 (07:16→13:25)
--- NOTE | 2017-08-27 07:54 | P.GSHP ---
History of Present Illness H&P Date: 08/27/17 Chief Complaint: Right upper quadrant pain [place] amw-czpf-cal female who's had complaints of right upper quadrant pain. Her recent HIDA scan shows abnormal ejection fraction consistent with biliary hyperkinesia's and chronic cholecystitis. She presents today for laparoscopic cholecystectomy. 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 Past Anesthesia/Blood Transfusion Reactions: Motion Sickness Additional Past Anesthesia/Blood Transfusion Reaction / Comment(s): LOW BLOOD PRESSURE WITH SURGERY. STATES PROBLEMS WITH MEMORY WITH ANESTHESIA ".No prior blood transfusions Past Psychological History: Anxiety, Bipolar, Depression Additional Psychological History / Comment(s): Manic Depressive Smoking Status: Never smoker Past Alcohol Use History: None Reported Past Drug Use History: None Reported - Past Family History Father Family Medical History: Cancer Additional Family Medical History / Comment(s): Father had lymphoma. He had LUNG, BONE, THROAT AND MOUTH CANCER Brother(s) Family Medical History: Myocardial Infarction ([place]) Additional Family Medical History / Comment(s): Muscle Disease Mother Family Medical History: Cancer Additional Family Medical History / Comment(s): lung cancer- mother. She at the age of 79yrs from esophageal valencia after radiation-unable to eat. Medications and Allergies Home Medications Medication Instructions Recorded Confirmed Type Cetirizine HCl [Zyrtec] 10 mg PO DAILY 04/26/15 08/21/17 History Insulin Glargine [Lantus] 63 unit SQ HS 04/26/15 08/21/17 History Multivitamin with Iron [Daily 1 tab PO DAILY 04/26/15 08/21/17 History Multivitamin with Iron] Naproxen [Naprosyn] 250 mg PO HS PRN 04/26/15 08/21/17 History [place]-3 Fatty Acids/Fish Oil [Fish 1,000 mg PO Q72H 04/26/15 08/21/17 History Oil 1,000 mg Softgel] Calcium Carbonate/Vitamin D3 1 tab PO Q72H 08/28/16 08/21/17 History [Calcium 600-Vit D3 200 Tablet] Cholecalciferol [Vitamin D3] 2,000 unit PO BID 08/28/16 08/21/17 History Ginkgo Biloba [place] Extract [Ginkgo] 60 mg PO DAILY 08/28/16 08/21/17 History Panax Ginseng Root Extract 100 mg PO DAILY 08/28/16 08/21/17 History [Ginseng] Vitamin B Complex 1 cap PO Q72H 08/28/16 08/21/17 History Aspirin 81 mg PO DAILY 04/25/17 08/21/17 History Furosemide [Lasix] 20 mg PO DAILY PRN 04/25/17 08/21/17 History HYDROcodone/APAP 7.5-325MG [[place] 1 tab PO DAILY PRN 04/25/17 08/21/17 History 7.5-325] Insulin Aspart [NovoLOG] 20 unit SQ W/LUNCH 04/25/17 08/21/17 History Insulin Aspart [NovoLOG] See Protocol SQ AC-TID 04/25/17 08/21/17 History Magnesium 200 mg PO Q72H 04/25/17 08/21/17 History Potassium Chloride ER [K-Dur 10] 10 meq PO DAILY PRN 04/25/17 08/21/17 History Pregabalin [Lyrica] 75 mg PO BID 04/25/17 08/21/17 History Ranitidine HCl [Zantac] 300 mg PO QAM 04/25/17 08/21/17 History Insulin Aspart [NovoLOG] 25 unit SQ W/SUPPER 08/21/17 08/21/17 History Levothyroxine Sodium [Synthroid] 50 mcg PO QAM 08/21/17 08/21/17 History Losartan [Cozaar] 50 mg PO QAM 08/21/17 08/21/17 History Metoprolol Tartrate [Lopressor] 25 mg PO BID 08/21/17 08/21/17 History Allergies Allergy/AdvReac Type Severity Reaction Status Date / Time adhesive tape Allergy blisters Verified 08/21/17 13:45 Iodinated Contrast- Oral and Allergy Swelling, Verified 08/21/17 13:45 IV Dye SHORTNESS [Iodinated Contrast Media - OF BREATH IV Dye] latex Allergy Rash/Hives Verified 08/21/17 13:45 talc Allergy Rash/Hives Verified 08/21/17 13:45 amlodipine AdvReac ankle Verified 08/21/17 15:51 swelling hydralazine AdvReac Diarrhea Verified 08/21/17 15:51 metal Allergy Rash/Hives Uncoded 08/21/17 13:45 Surgical - Exam Vital Signs Temp Pulse Resp BP Pulse Ox 97.9 F 82 18 138/882 96 08/27/17 07:14 08/27/17 07:14 08/27/17 07:14 08/27/17 07:14 08/27/17 07:14 - General well developed, well nourished, no distress - Eyes PERRL - ENT normal pinna - Neck no masses - Respiratory normal expansion - Cardiovascular Rhythm: regular - Abdomen Abdomen: soft, non tender Results - Labs 08/27/17 07:00 Abnormal Lab Results - Last 24 Hours (Table) 08/27/17 Range/Units 06:57 POC Glucose (mg/dL) 189 H (75-99) mg/dL Diabetes panel 08/27/17 Range/Units 07:00 Potassium 4.4 (3.5-5.1) mmol/L Pituitary panel 08/27/17 Range/Units 07:00 Potassium 4.4 (3.5-5.1) mmol/L Adrenal panel 08/27/17 Range/Units 07:00 Potassium 4.4 (3.5-5.1) mmol/L Assessment and Plan Plan: Chronic cholecystitis. We will perform laparoscopic cholecystectomy.
[2017-08-27] MEDS ORDERED: PROPOFOL 10 MG/ML 20 ML VIAL IV ONE (08:02)
[2017-08-27] MEDS ORDERED: ROCURONIUM BROMIDE 10 MG/ML 10 ML VIAL IV ONE (08:02)
[2017-08-27] MEDS ORDERED: LIDOCAINE 1% INJ 10MG/ML (20 ML MDV) ONE (08:02)
[2017-08-27] MEDS ORDERED: GLYCOPYRROLATE 0.2 MG/ML 2 ML VIAL ONE (08:02)
[2017-08-27] MEDS ORDERED: MIDAZOLAM 2 MG/2 ML VIAL ONE (08:02)
[2017-08-27] MEDS: ceFAZolin 3 GM in SODIUM CHLORIDE 0.9% 100 ML IVPB ONE ×2 (08:02→08:15)
[2017-08-27] MEDS ORDERED: NEOSTIGMINE 1 MG/ML 10 ML VIAL ONE (08:02)
[2017-08-27] MEDS ORDERED: KETOROLAC 30 MG/ML 1 ML VIAL ONE (08:02)
[2017-08-27] MEDS ORDERED: SUCCINYLCHOLINE CHLORIDE 100 MG/5 ML SYR IV ONE (08:02)
[2017-08-27] MEDS ORDERED: BUPIVACAINE (PF) 0.25% 30 ML VIAL SQ ONE ×2 (08:24→08:34)
[2017-08-27] MEDS ORDERED: LACTATED RINGERS 1,000 ML IV ONE (08:46)
[2017-08-27] MEDS ORDERED: ENALAPRILAT 1.25 MG/ML 1 ML VIAL IVP ONE (09:19)
[2017-08-27 09:21] VITALS: TEMP 96.8
[2017-08-27 09:55] LABS: Glucose,Whole Blood 221 mg/dL (75-99)
[2017-08-27] MEDS ORDERED: ONDANSETRON 4 MG/2 ML VIAL IVP ONE (09:57)
[2017-08-27] MEDS ORDERED: INSULIN LISPRO (humaLOG) 300 UNIT/3 ML VIAL SQ ONE (09:58)
[2017-08-27] MEDS ORDERED: LABETALOL 5 MG/ML VIAL MDV IVP ONE ×3 (10:45→12:47)
[2017-08-27 11:07] VITALS: RESP 16
[2017-08-27] MEDS ORDERED: HYDROcodone/APAP 7.5-325MG 1 EACH TAB PO ONE (11:37)
[2017-08-27 13:11] VITALS: PULSE 88
[2017-08-27] MEDS ORDERED: LABETALOL 5 MG/ML VIAL MDV IV ONE (13:25)
[2017-08-27 14:09] VITALS: BP 153/70
--- NOTE | 2017-09-03 16:50 | P.OP ---
Date of Procedure: 08/27/17 Preoperative Diagnosis: Cholecystitis Postoperative Diagnosis: Cholecystitis Procedure(s) Performed: Laparoscopic cholecystectomy Anesthesia: MARI Surgeon: Ron Read Estimated Blood Loss (ml): 5 Pathology: other (Gallbladder) Condition: stable Disposition: PACU Description of Procedure: The patient was placed on the operating table. The patient received a general endotracheal tube anesthesia. The patients abdomen was prepped and draped in the usual sterile fashion. Through an infraumbilical stab incision, the fascia of the anterior abdominal wall was grasped with a pair of Kochers and then the Veress needle was placed in the peritoneal cavity. Position of the Veress needle was confirmed with positive drop test. The abdomen was then insufflated. After adequate insufflation, the 10 mm trocar was placed in the peritoneal cavity. Following this the laparoscope was placed in the peritoneal cavity. The patient was placed in the head-up, right side up position and then a 5 mm trocar was placed in the right lateral and right subcostal position under direct visualization. A 8 mm trocar was placed in the epigastric position. The gallbladder was grasped in the fundus and infundibulum. Traction on the gallbladder was placed in the lateral and the cephalad positions. The triangle of [place] was visualized.. The cystic duct was bluntly dissected until the union of the cystic duct and common bile duct was seen. The cystic duct was then divided and sealed with the Harmonic scissors. A PDS Endoloop was then placed throughout the cystic duct stump. The cystic artery divided and sealed with the Harmonic scissors. The gallbladder was then removed from the liver bed using Harmonic scissors. The gallbladder was then extracted through the epigastric port site. Operative field was checked for any bleeding spots and Harmonic scissors was used to coagulate the liver bed. The abdomen was irrigated. The trocars were removed. The skin was closed using interrupted 3-0 Vicryl suture. Dermabond dressing were applied. The patient tolerated the procedure well.
== END 2017-08-27 14:15 | disposition home or self-care (01) ==
LOC: OR 06:22
PROVIDERS: ATTEND Surgery
DX: K81.1 Chronic cholecystitis (principal); E11.40 Type 2 diabetes mellitus with diabetic neuropathy, unspecified; Z79.4 Long term (current) use of insulin; K21.9 Gastro-esophageal reflux disease without esophagitis; I10 Essential (primary) hypertension; M19.90 Unspecified osteoarthritis, unspecified site; G47.33 Obstructive sleep apnea (adult) (pediatric); E04.1 Nontoxic single thyroid nodule; Z87.820 Personal history of traumatic brain injury; E66.01 Morbid (severe) obesity due to excess calories; Z68.42 Body mass index [BMI] 45.0-49.9, adult; R41.3 Other amnesia; F32.9 Major depressive disorder, single episode, unspecified; H57.8 Other specified disorders of eye and adnexa; I95.81 Postprocedural hypotension; Z79.82 Long term (current) use of aspirin; Z79.899 Other long term (current) drug therapy; Z91.041 Radiographic dye allergy status; Z91.040 Latex allergy status; Z88.8 Allergy status to other drugs, medicaments and biological substances; Z91.09 Other allergy status, other than to drugs and biological substances
CPT/HCPCS: 47562; 88304; 84132; J2250; J1644; J1100; J2710; J0690; J2405; J2001; J1885; J0330; J2704; J1170

== ENCOUNTER 2017-12-08 15:54 | Emergency (ER) | payer MEDICARE ==
[2017-12-08 16:14] VITALS: BP 119/67; PULSE 70; RESP 20; TEMP 98.1
[2017-12-08] MEDS ORDERED: KETOROLAC 60 MG/2 ML VIAL IM STA (16:39)
[2017-12-08] MEDS ORDERED: ORPHENADRINE 30 MG/ML 2 ML VIAL IM STA (16:39)
--- NOTE | 2017-12-08 16:49 | ED ---
Extremity Problem HPI - General Chief complaint: Extremity Problem,Nontraumatic Stated complaint: Leg pain Time Seen by Provider: 12/08/17 16:29 Source: patient Mode of arrival: wheelchair Limitations: no limitations - History of Present Illness Initial comments: 67-year-old female presents with left lower extremity discomfort. Patient states she thinks she has a sciatic nerve issue. Patient states is been ongoing for the last few days. Patient saw her PCP was given a steroid shot but did not help. Patient states it starts in her left mid buttocks and goes down her left leg around to the thigh and down into the calf area. Patient denies any bowel bladder incontinence or saddle numbness. She denies any numbness or tingling in her left lower extremity. Patient states she's had similar problems in the right lower extremity. Patient does have history of fibromyalgia and is on Lyrica. No injury to the patient's knowledge. MD Complaint: extremity pain -: days(s) Quality: burning, aching Consistency: constant Improves with: immobilization Worsens with: walking, exertion - Related Data Home Medications Medication Instructions Recorded Confirmed Cetirizine HCl [Zyrtec] 10 mg PO DAILY 04/26/15 08/21/17 Insulin Glargine [Lantus] 63 unit SQ HS 04/26/15 08/21/17 Multivitamin with Iron [Daily 1 tab PO DAILY 04/26/15 08/21/17 Multivitamin with Iron] Naproxen [Naprosyn] 250 mg PO HS PRN 04/26/15 08/21/17 Louin-3 Fatty Acids/Fish Oil [Fish 1,000 mg PO Q72H 04/26/15 08/21/17 Oil 1,000 mg Softgel] Calcium Carbonate/Vitamin D3 1 tab PO Q72H 08/28/16 08/21/17 [Calcium 600-Vit D3 200 Tablet] Cholecalciferol [Vitamin D3] 2,000 unit PO BID 08/28/16 08/21/17 Ginkgo Biloba [place] Extract [Ginkgo] 60 mg PO DAILY 08/28/16 08/21/17 Panax Ginseng Root Extract 100 mg PO DAILY 08/28/16 08/21/17 [Ginseng] Vitamin B Complex 1 cap PO Q72H 08/28/16 08/21/17 Aspirin 81 mg PO DAILY 04/25/17 08/21/17 Furosemide [Lasix] 20 mg PO DAILY PRN 04/25/17 08/21/17 HYDROcodone/APAP 7.5-325MG [[place] 1 tab PO DAILY PRN 04/25/17 08/21/17 7.5-325] Insulin Aspart [NovoLOG 20 unit SQ W/LUNCH 04/25/17 08/21/17 (formulary)] Insulin Aspart [NovoLOG See Protocol SQ AC-TID 04/25/17 08/21/17 (formulary)] Magnesium 200 mg PO Q72H 04/25/17 08/21/17 Potassium Chloride ER [K-Dur 10] 10 meq PO DAILY PRN 04/25/17 08/21/17 Pregabalin [Lyrica] 75 mg PO BID 04/25/17 08/21/17 Ranitidine HCl [Zantac] 300 mg PO QAM 04/25/17 08/21/17 Insulin Aspart [NovoLOG] 25 unit SQ W/SUPPER 08/21/17 08/21/17 Levothyroxine Sodium [Synthroid] 50 mcg PO QAM 08/21/17 08/21/17 Losartan [Cozaar] 50 mg PO QAM 08/21/17 08/21/17 Metoprolol Tartrate [Lopressor] 25 mg PO BID 08/21/17 08/21/17 Previous Rx's Medication Instructions Recorded Docusate [Colace] 100 mg PO BID #20 capsule 08/27/17 HYDROcodone/APAP 7.5-325MG [[place] 1 each PO Q4H PRN #60 tab 08/27/17 7.5] Acetaminophen with Codeine 1 each PO Q4H PRN #20 tab 12/08/17 [Tylenol w/codeine #3] Cyclobenzaprine HCl 10 mg PO TID #20 tab 12/08/17 Allergies Allergy/AdvReac Type Severity Reaction Status Date / Time adhesive tape Allergy blisters Verified 12/08/17 16:14 Iodinated Contrast- Oral and Allergy Swelling, Verified 12/08/17 16:14 IV Dye SHORTNESS [Iodinated Contrast Media - OF BREATH IV Dye] latex Allergy Rash/Hives Verified 12/08/17 16:14 talc Allergy Rash/Hives Verified 12/08/17 16:14 amlodipine AdvReac ankle Verified 12/08/17 16:14 swelling hydralazine AdvReac Diarrhea Verified 12/08/17 16:14 metal Allergy Rash/Hives Uncoded 12/08/17 16:14 Review of Systems ROS Statement: Those systems with pertinent positive or pertinent negative responses have been documented in the HPI. ROS Other: All systems not noted in ROS Statement are negative. Constitutional: Denies: fever, chills ENT: Denies: ear pain, throat pain Cardiovascular: Denies: chest pain, palpitations Musculoskeletal: Reports: back pain Neurological: Reports: abnormal gait. 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, TIA 2008, IDDM type II, bilateral feet neuropathy, L hip "dislocates" at times, BROCK without device, closed head injury at the age of 14yrs (fell out of tree), L eye "bleeders"-gets injections, tinnitis, sinus problems,uses cane History of Any Multi-Drug Resistant Organisms: None Reported Past Surgical History: Breast Surgery, Hysterectomy, Orthopedic Surgery, Tubal Ligation Additional Past Surgical History / Comment(s): thyroid biopsies, rt knee arthroscopic surgery, bilateral feet hammer toe repairs, D&C, bilateral CATARACT SURGERY with lens implants, colonoscopies, bilateral breast lumpectomies-benign, tilt table test. Past Anesthesia/Blood Transfusion Reactions: Motion Sickness Additional Past Anesthesia/Blood Transfusion Reaction / Comment(s): LOW BLOOD PRESSURE WITH SURGERY. STATES PROBLEMS WITH MEMORY WITH ANESTHESIA ".No prior blood transfusions Past Psychological History: Anxiety, Bipolar, Depression Smoking Status: Never smoker Past Alcohol Use History: None Reported Past Drug Use History: None Reported - Past Family History Father Family Medical History: Cancer Additional Family Medical History / Comment(s): Father had lymphoma. He had LUNG, BONE, THROAT AND MOUTH CANCER Brother(s) Family Medical History: Myocardial Infarction ([place]) Additional Family Medical History / Comment(s): Muscle Disease Mother Family Medical History: Cancer Additional Family Medical History / Comment(s): lung cancer- mother. She at the age of 79yrs from esophageal valencia after radiation-unable to eat. General Exam Limitations: no limitations General appearance: alert, in no apparent distress Head exam: Present: atraumatic, normocephalic, normal inspection Respiratory exam: Present: normal lung sounds bilaterally. Absent: respiratory distress, wheezes, rales, rhonchi, stridor Cardiovascular Exam: Present: regular rate, normal rhythm, normal heart sounds. Absent: systolic murmur, diastolic murmur, rubs, gallop, clicks Back exam: Present: tenderness (left buttocks), other (pain with flexion and extension of lower back, limited exam due to patient's pain level and body habitus.) Neurological exam: Present: alert, oriented X3, CN II-XII intact Psychiatric exam: Present: normal affect, normal mood Skin exam: Present: warm, dry, intact, normal color. Absent: rash Course Vital Signs 12/08/17 16:12 Temperature 98.1 F Pulse Rate 70 Respiratory 20 Rate Blood Pressure 119/67 O2 Sat by Pulse 96 Oximetry Medical Decision Making - Medical Decision Making I discussed patient to continue with taking anti-inflammatory along with muscle relaxers and pain pills until further evaluated. Patient should probably try chiropractic or physical therapy treatment to help with low back and radiculopathy discomfort. Patient to see or orthopedic if not improving. Disposition Clinical Impression: Radicular pain of left lower extremity Disposition: HOME SELF-CARE Condition: Good Instructions: Lumbar Radiculopathy (ED) Prescriptions: Acetaminophen with Codeine [Tylenol w/codeine #3] 1 each PO Q4H PRN #20 tab PRN Reason: Pain Cyclobenzaprine HCl 10 mg PO TID #20 tab Referrals: Vanessa Michel DO [Primary Care Provider] - 1-2 days
== END 2017-12-08 16:58 | disposition home or self-care (01) ==
LOC: EC 15:54
DX: M54.10 Radiculopathy, site unspecified (principal); M79.7 Fibromyalgia; I10 Essential (primary) hypertension; E11.40 Type 2 diabetes mellitus with diabetic neuropathy, unspecified; K21.9 Gastro-esophageal reflux disease without esophagitis; M19.90 Unspecified osteoarthritis, unspecified site; E04.2 Nontoxic multinodular goiter; Z79.4 Long term (current) use of insulin; Z79.82 Long term (current) use of aspirin; Z79.899 Other long term (current) drug therapy; Z88.8 Allergy status to other drugs, medicaments and biological substances; Z91.040 Latex allergy status; Z91.041 Radiographic dye allergy status; Z91.09 Other allergy status, other than to drugs and biological substances; Z82.69 Family history of other diseases of the musculoskeletal system and connective tissue
CPT/HCPCS: 99283; 96372 ×2; J2360; J1885

== ENCOUNTER → 2018-02-02 | Outpatient (CLI) | payer MEDICARE ==
--- NOTE | 2018-02-03 17:57 | MR ---
EXAMINATION TYPE: MR lspine/sacrum wo con DATE OF EXAM: 02/02/2018 COMPARISON: 04/12/2017 HISTORY: Low back pain, trouble waking x3 years TECHNIQUE: Multiplanar, multisequence imaging of the lumbar spine is performed without IV contrast. FINDINGS: Sagittal images of the lumbar spine show vertebral body heights and alignment to appear sat isfactory. The intervertebral discs demonstrate multilevel disc desiccation. The conus medullaris is normal in position and signal terminating at T12-L1. The bone marrow signal intensity is patchy but within normal limits other than scattered T1/T2 hyperintense vertebral body hemangiomas as seen on t he prior. L1-L2: Mild disc desiccation is seen without, disc bulge, spinal canal stenosis or neural foraminal n arrowing. Mild ligamentum flavum buckling and facet arthropathy are also seen at this level. L2-L3: There is a broad-based disc bulge and ligamentum flavum buckling as well as facet arthropathy creating mild to moderate spinal canal stenosis. No significant neural foraminal narrowing. L3-L4: There is a broad-based disc bulge, facet arthropathy and ligamentum flavum buckling creating m ild left and minimal right neural foraminal narrowing and mild spinal canal stenosis. L4-L5: Right lateral disc herniation is redemonstrated superimposed upon a broad-based disc bulge res ulting in severe right neural foraminal narrowing with impression upon the L4 exiting nerve root and only minimal left neural foraminal narrowing. Mild to moderate spinal canal stenosis is also seen as a result of ligamentum flavum buckling and facet arthropathy. L5-S1: Small broad-based disc bulge without neural foraminal narrowing or spinal canal stenosis. SACRUM: Bone marrow signal is within normal limits. No evidence of acute edema. Very mild bilateral s ymmetric sacroiliac joint sclerosis is identified. Mild femoral acetabular arthropathy is also seen b ilaterally. Muscular volume is symmetric with minimal atrophy. Visualized bowel is unremarkable. No s acral disc herniation or significant neural foraminal narrowing. No sacral spinal canal stenosis. IMPRESSION: 1. Progressed right lateral disc herniation at L4-L5 creating severe right neural foraminal narrowing with impression on L4 exiting nerve root and mild to moderate spinal canal stenosis in combination w ith ligament of flavum buckling and facet arthropathy. 2. Progression in multilevel degenerative disc disease with variable degrees of neural foraminal sten osis as described above and mild to moderate spinal canal stenosis at L2-L3 and mild spinal canal zhane nosis at L3-L4 in addition to the spinal canal stenosis discussed at L4-L5 above. 3. Mild bilateral sacroiliac joint sclerosis and femoral acetabular arthropathy with no evidence of f ocal edema, spinal canal stenosis, fracture, or neural foraminal narrowing of the sacrum.
== END | disposition home or self-care (01) ==
LOC: RADMRIMAIN 10:16
PROVIDERS: ATTEND Family Medicine
DX: M48.061 Spinal stenosis, lumbar region without neurogenic claudication (principal); M99.73 Connective tissue and disc stenosis of intervertebral foramina of lumbar region; M51.16 Intervertebral disc disorders with radiculopathy, lumbar region; M46.86 Other specified inflammatory spondylopathies, lumbar region; G95.89 Other specified diseases of spinal cord
CPT/HCPCS: 72148; 72195

== ENCOUNTER → 2018-03-18 | Outpatient (CLI) | payer MEDICARE ==
--- NOTE | 2018-03-18 15:51 | MR ---
EXAMINATION TYPE: MR brain wo con DATE OF EXAM: 03/18/2018 COMPARISON: CT brain 03/29/2009 HISTORY: Lightheaded, Dizzy CONTRAST: Performed utilizing 0 mL intravenous Gadavist gadolinium contrast. TECHNIQUE: Multiplanar, multiecho imaging on a 3.0 [place] magnet is performed through the brain. Stud y is performed within 24 hours of arrival to the hospital. The craniovertebral junction is normal. The pituitary is normal. Diffusion-weighted imaging is performed. No abnormal hyperintensity is present to suggest an acute i ntracranial infarct or acute ischemic change. There are patchy periventricular white matter hyperintensities the largest in the right park radiat a which are nonspecific but could be related to microvascular ischemic change. This is not out of pro portion to the patient age. Ventricles and sulci are appropriate for the patient age. IMPRESSIONS: 1. Mild chronic appearing white matter ischemic type changes.
== END | disposition home or self-care (01) ==
LOC: RADMRIMAIN 15:04
PROVIDERS: ATTEND Family Medicine
DX: I67.82 Cerebral ischemia (principal)
CPT/HCPCS: 70551

== ENCOUNTER 2018-09-16 22:15 | Inpatient (IN) | payer MEDICARE ==
[2018-09-16] MEDS ORDERED: SODIUM CHLORIDE 0.9% 500 ML 500 ML IV STA (22:35)
[2018-09-16] MEDS ORDERED: ASPIRIN 81 MG PO STA (22:35)
--- NOTE | 2018-09-16 22:35 | ED ---
Chest Pain HPI - General Chief Complaint: Chest Pain Stated Complaint: chest pain Time Seen by Provider: 09/16/18 22:34 Source: patient Mode of arrival: wheelchair Limitations: no limitations - History of Present Illness Initial Comments: Karly is a 68-year-old female who presents the emergency department today for evaluation of chest pain and jaw pain as well as palpitations. Patient reports she experienced this chest pain and discomfort a couple of weeks ago, she followed with her primary care physician who referred her for an outpatient cardiology consult. Patient reports that today she has had some chest pressure and felt like her heart was racing which prompted her to come to the emergency department. The patient denies any fevers, chills, shortness of breath, nausea or vomiting, though she does report she had diarrhea throughout the day today and is concerned that she may be dehydrated. Patient is uncertain if she has any history of atrial fibrillation but states she is not on any anticoagulation. She states that her primary care physician to the EKG in the office earlier in the week but she is uncertain of the results of that were. Patient is scheduled to see cardiology tomorrow. - Related Data Home Medications Medication Instructions Recorded Confirmed Insulin Glargine [Lantus] 60 unit SQ HS 04/26/15 09/16/18 Multivitamin with Iron [Daily 1 tab PO DAILY 04/26/15 09/16/18 Multivitamin with Iron] Cholecalciferol [Vitamin D3] 5,000 unit PO DAILY 08/28/16 09/16/18 Ginkgo Biloba [place] Extract [Ginkgo] 60 mg PO DAILY 08/28/16 09/16/18 Vitamin B Complex 1 cap PO DAILY 08/28/16 09/16/18 Aspirin 243 mg PO DAILY 04/25/17 09/16/18 Pregabalin [Lyrica] 75 mg PO BID 04/25/17 09/16/18 Levothyroxine Sodium [Synthroid] 50 mcg PO QAM 08/21/17 09/16/18 Metoprolol Tartrate [Lopressor] 25 mg PO BID 08/21/17 09/16/18 Calcium Carbonate [Calcium] 300 mg PO HS 09/16/18 09/16/18 Ginseng 100 mg PO DAILY 09/16/18 09/16/18 Insulin Lispro [humaLOG Kwikpen] 6 unit SQ AC-BID 09/16/18 09/16/18 Insulin Lispro [humaLOG Kwikpen] See Protocol SQ AC-BID 09/16/18 09/16/18 Lisinopril [Zestril] 2.5 mg PO DAILY 09/16/18 09/16/18 Losartan Potassium 100 mg PO DAILY 09/16/18 09/16/18 Naproxen Sodium [Aleve] 220 mg PO DAILY PRN 09/16/18 09/16/18 acetaZOLAMIDE [Diamox] 250 mg PO Q48H 09/16/18 09/16/18 Allergies Allergy/AdvReac Type Severity Reaction Status Date / Time adhesive tape Allergy blisters Verified 09/16/18 23:13 Iodinated Contrast- Oral and Allergy Swelling, Verified 09/16/18 23:13 IV Dye SHORTNESS [Iodinated Contrast Media - OF BREATH IV Dye] latex Allergy Rash/Hives Verified 09/16/18 23:13 talc Allergy Rash/Hives Verified 09/16/18 23:13 amlodipine AdvReac ankle Verified 09/16/18 23:13 swelling hydralazine AdvReac Diarrhea Verified 09/16/18 23:13 metal Allergy Rash/Hives Uncoded 09/16/18 22:22 Review of Systems ROS Statement: Those systems with pertinent positive or pertinent negative responses have been documented in the HPI. ROS Other: All systems not noted in ROS Statement are negative. EKG Findings - EKG Comments: EKG Findings:: EKG obtained at 10:28 PM, rate is 146, rhythm is atrial fibrillation with rapid trachea response. There are ST depressions laterally, no acute ST elevations. Repeat EKG obtained at 11:03 PM. Rate is 102, rhythm is sinus tachycardia, there is a normal axis, normal intervals, TX 206, QRS 80, QTC is 432. There are no acute ST elevations or depressions no evidence of acute ischemia or infarction. 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 Past Anesthesia/Blood Transfusion Reactions: Motion Sickness Additional Past Anesthesia/Blood Transfusion Reaction / Comment(s): LOW BLOOD PRESSURE WITH SURGERY. STATES PROBLEMS WITH MEMORY WITH ANESTHESIA ".No prior blood transfusions Past Psychological History: Anxiety, Bipolar, Depression Smoking Status: Never smoker Past Alcohol Use History: None Reported Past Drug Use History: None Reported - Past Family History Father Family Medical History: Cancer Additional Family Medical History / Comment(s): Father had lymphoma. He had LUNG, BONE, THROAT AND MOUTH CANCER Brother(s) Family Medical History: Myocardial Infarction ([place]) Additional Family Medical History / Comment(s): Muscle Disease Mother Family Medical History: Cancer Additional Family Medical History / Comment(s): lung cancer- mother. She at the age of 79yrs from esophageal valencia after radiation-unable to eat. General Exam - General Exam Comments Initial Comments: Physical Exam GENERAL: Patient is well-developed and well-nourished. Patient is nontoxic and well- hydrated and is in no distress. Obese female in no acute distress HENT: Normocephalic, Atraumatic. EYES: PERRL, EOMI PULMONARY: Unlabored respirations. CARDIOVASCULAR: There is a regular rate and rhythm without any murmurs gallops or rubs. Appears to be in sinus on the monitor at time of evaluation ABDOMEN: Soft and nontender with normal bowel sounds. SKIN: Skin is clear with no lesions or rashes and otherwise unremarkable. : Deferred NEUROLOGIC: Patient is alert and oriented x3. Moving all extremities spontaneously MUSCULOSKELETAL: Normal extremities with adequate strength and full range of motion. No lower extremity swelling or edema. No calf tenderness. PSYCHIATRIC: Normal psychiatric evaluation. Limitations: no limitations Limitations: no limitations Course Vital Signs 09/16/18 09/16/18 09/17/18 22:19 23:04 00:17 Temperature 98.3 F Pulse Rate 131 H 79 79 Respiratory 20 16 20 Rate Blood Pressure 159/109 158/89 154/76 O2 Sat by Pulse 97 99 98 Oximetry Chest Pain MDM - [facility] Patient was seen and evaluated, history was obtained from the patient, review of medical record and daughters at bedside Patient with a history of CVA TIA in the past but no significant cardiac history presenting with chest pressure and palpitations. Initial EKG noted A. fib with RVR. Full cardiac workup was ordered Patient was noted to convert from A. fib with RVR to sinus tachycardia and sinus rhythm. However given the patient's chest pain and pressure and new onset A. fib with RVR I will order low-dose heparin. Labs reveal elevated glucose - insulin sliding scale as ordered Troponin negative, no signs of heart failure, chest x-rays no acute findings Patient care was discussed with Dr. Morrison who accepts the admission with a consult to cardiology Disposition Clinical Impression: Chest pain, Atrial fibrillation with RVR Disposition: ADMITTED IP TO THIS HOSP Referrals: Vanessa Michel DO [Primary Care Provider] - 1-2 days
[2018-09-16] MEDS ORDERED: DILTIAZEM DRIP BOLUS FROM BAG 1 MG SOLN IV ONE (22:36)
[2018-09-16] MEDS ORDERED: DILTIAZEM 50 MG in SODIUM CHLORIDE 0.9% 40 ML IV SCH (22:45)
[2018-09-16 23:07] LABS: Basophils % (A) 0 %; Eosinophils # (A) 0.4 k/uL (0-0.7); Eosinophils % (A) 4 %; HCT 43.5 % (34.0-46.0); HGB 13.5 gm/dL (11.4-16.0); Lymphocytes # (A) 2.5 k/uL (1.0-4.8); Lymphocytes % (A) 24 %; MCH 27.3 pg (25.0-35.0); MCHC 31.2 g/dL (31.0-37.0); MCV 87.5 fL (80.0-100.0); Mean Platelet Volume 6.8; Monocytes # (A) 0.7 k/uL (0-1.0); Monocytes % (A) 6 %; Neutrophils # (A) 6.8 k/uL (1.3-7.7); Neutrophils % (A) 64 %; Platelet Count 296 k/uL (150-450); RBC 4.97 m/uL (3.80-5.40); RDW 15.3 % (11.5-15.5); WBC 10.6 k/uL (3.8-10.6)
[2018-09-16 23:16] LABS: Albumin 3.9 g/dL (3.5-5.0); Calcium 10.5 mg/dL (8.4-10.2); Magnesium 1.7 mg/dL (1.6-2.3); Potassium 4.4 mmol/L (3.5-5.1); Total Bilirubin 0.4 mg/dL (0.2-1.3); Total Protein 6.7 g/dL (6.3-8.2)
[2018-09-16 23:35] LABS: Prothrombin Time 9.5 sec (9.0-12.0)
--- NOTE | 2018-09-16 23:40 | XR ---
EXAMINATION TYPE: XR chest 2V DATE OF EXAM: 09/16/2018 COMPARISON: 04/25/2017 HISTORY: Chest pain TECHNIQUE: Frontal and lateral views of the chest are obtained. FINDINGS: Heart and mediastinum are normal. Lungs are clear. Diaphragm is normal. Bony thorax appear s normal. IMPRESSION: Normal chest. No change.
[2018-09-16 23:41] LABS: Creatine Kinase 51 U/L (30-135)
[2018-09-16 23:51] LABS: Creatine Kinase MB 1.6 ng/mL (0.0-2.4)
[2018-09-16 23:55] LABS: Troponin I <0.012 ng/mL (0.000-0.034)
[2018-09-17] MEDS ORDERED: HEPARIN SODIUM,PORCINE 5,000 UNIT/ML 1 ML VIAL IV PRN (00:05)
[2018-09-17] MEDS ORDERED: HEPARIN SODIUM,PORCINE 5,000 UNIT/ML 1 ML VIAL IV ONE (00:05)
[2018-09-17] MEDS ORDERED: NITROGLYCERIN SL TABS 0.4 MG TAB SUBLINGUAL PRN ×2 (00:26→10:55)
[2018-09-17] MEDS: HEPARIN SOD,PORK IN 0.45% NACL 25,000 UNIT in 0.45% NACL 1 500ML.BAG IV SCH ×2 (00:46→21:45)
[2018-09-17] MEDS ORDERED: INSULIN ASPART 100 UNIT/ML 1 ML 10 ML VIAL SQ ONE (01:32)
[2018-09-17] MEDS ORDERED: LISINOPRIL 2.5 MG TAB PO STA (02:11)
[2018-09-17] MEDS ORDERED: METOPROLOL TARTRATE 25 MG TAB PO STA (02:11)
[2018-09-17 03:16] LABS: Glucose,Whole Blood 353 mg/dL (75-99)
[2018-09-17] MEDS: LEVOTHYROXINE 50 MCG TAB PO SCH (06:23)
[2018-09-17] MEDS: INSULIN ASPART 100 UNIT/ML 1 ML 10 ML VIAL SQ SCH ×4 (06:24→21:30)
[2018-09-17 06:27] LABS: Glucose,Whole Blood 164 mg/dL (75-99)
[2018-09-17 06:41] LABS: Partial Thromboplastin Time 46.3 sec (22.0-30.0)
[2018-09-17 07:10] LABS: Creatine Kinase MB 1.4 ng/mL (0.0-2.4)
[2018-09-17 07:13] LABS: Troponin I 0.043 ng/mL (0.000-0.034)
[2018-09-17] MEDS: METOPROLOL TARTRATE 25 MG TAB PO SCH ×2 (08:13→21:45)
[2018-09-17] MEDS: LISINOPRIL 2.5 MG TAB PO SCH (08:13)
[2018-09-17] MEDS: LOSARTAN 50 MG TAB PO SCH (08:14)
[2018-09-17] MEDS: PREGABALIN 75 MG CAP PO SCH ×2 (08:14→21:45)
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
[2018-09-17 10:21] LABS: Basophils % (A) 0 %; Eosinophils # (A) 0.4 k/uL (0-0.7); Eosinophils % (A) 4 %; HCT 36.9 % (34.0-46.0); HGB 11.9 gm/dL (11.4-16.0); Lymphocytes # (A) 2.9 k/uL (1.0-4.8); Lymphocytes % (A) 34 %; MCH 27.6 pg (25.0-35.0); MCHC 32.2 g/dL (31.0-37.0); MCV 85.6 fL (80.0-100.0); Mean Platelet Volume 8.7; Monocytes # (A) 0.5 k/uL (0-1.0); Monocytes % (A) 6 %; Neutrophils # (A) 4.7 k/uL (1.3-7.7); Neutrophils % (A) 54 %; Platelet Count 246 k/uL (150-450); RBC 4.31 m/uL (3.80-5.40); RDW 15.3 % (11.5-15.5); WBC 8.7 k/uL (3.8-10.6)
--- NOTE | 2018-09-17 10:23 | ECHOF ---
Referral Reason:nstemi MEASUREMENTS -------- HEIGHT: 165.1 cm WEIGHT: 143.8 kg BP: IVSd: 1.4 cm (0.6 - 1.1) LVIDd: 4.1 cm (3.9 - 5.3) LVPWd: 1.2 cm (0.6 - 1.1) IVSs: 1.5 cm LVIDs: 3.3 cm LVPWs: 1.5 cm LA Diam: 3.7 cm (2.7 - 3.8) LAESV Index (A-L): 25.40 ml/m Ao Diam: 3.5 cm (2.0 - 3.7) AV Cusp: 2.0 cm (1.5 - 2.6) LA Diam: 4.4 cm (2.7 - 3.8) MV EXCURSION: 15.857 mm (> 18.000) MV EF SLOPE: 53 mm/s (70 - 150) EPSS: 0.5 cm MV E Rocky: 0.74 m/s MV DecT: 388 ms MV A Rocky: 0.85 m/s MV E/A Ratio: 0.87 RAP: 5.00 mmHg RVSP: 12.04 mmHg FINDINGS -------- Sinus rhythm. This was a technically adequate study. Morbid Obesity The left ventricular size is normal. There is moderate concentric left ventricular hypertrophy. O verall left ventricular systolic function is low-normal with, an EF between 50 - 55 %. The right ventricle is normal in size. The left atrial size is normal. The right atrial size is normal. The aortic valve is trileaflet, and appears structurally normal. No aortic stenosis or regurgitation. Mild mitral annular calcification present. Mild mitral regurgitation is present. Mild tricuspid regurgitation present. There is no evidence of pulmonary hypertension. The right v entricular systolic pressure, as measured by Doppler, is 12.04mmHg. The pulmonic valve was not well visualized. The aortic root size is normal. There is no pericardial effusion. CONCLUSIONS -------- 1. The left ventricular size is normal. 2. There is moderate concentric left ventricular hypertrophy. 3. Overall left ventricular systolic function is low-normal with, an EF between 50 - 55 %. 4. The right ventricle is normal in size. 5. The left atrial size is normal. 6. The right atrial size is normal. 7. The aortic valve is trileaflet, and appears structurally normal. No aortic stenosis or regurgitati on. 8. Mild mitral annular calcification present. 9. Mild mitral regurgitation is present. 10. Mild tricuspid regurgitation present. 11. There is no evidence of pulmonary hypertension. 12. The right ventricular systolic pressure, as measured by Doppler, is 12.04mmHg. 13. The pulmonic valve was not well visualized. 14. The aortic root size is normal. 15. There is no pericardial effusion. [employer] WORKER: Eva Campbell RDCS
[2018-09-17 10:48] LABS: Albumin 3.1 g/dL (3.5-5.0); Potassium 3.7 mmol/L (3.5-5.1); Total Bilirubin 0.5 mg/dL (0.2-1.3); Total Protein 5.7 g/dL (6.3-8.2)
[2018-09-17] MEDS ORDERED: ATORVASTATIN 80 MG TAB PO STA (10:55)
[2018-09-17] MEDS ORDERED: ALPRAZolam 0.5 MG TAB PO PRN (10:55)
[2018-09-17] MEDS ORDERED: SODIUM CHLORIDE 0.9% 1,000 ML in EMPTY BAG 1 BAG IV ONE (10:55)
[2018-09-17] MEDS ORDERED: ALPRAZolam 0.25 MG TAB PO PRN (10:55)
[2018-09-17] MEDS ORDERED: ASPIRIN 325 MG TAB PO STA (10:55)
[2018-09-17 11:18] LABS: Glucose,Whole Blood 83 mg/dL (75-99)
[2018-09-17 11:42] LABS: Creatine Kinase MB 1.6 ng/mL (0.0-2.4)
[2018-09-17 11:58] LABS: Troponin I 0.036 ng/mL (0.000-0.034)
[2018-09-17 16:44] LABS: Glucose,Whole Blood 207 mg/dL (75-99)
[2018-09-17 20:29] LABS: Hemoglobin A1C 10.6 % (4.0-6.0)
[2018-09-17 21:39] LABS: Glucose,Whole Blood 210 mg/dL (75-99)
[2018-09-17] MEDS: CALCIUM CARB-VIT D 500MG-200UN 1 EACH TAB PO SCH (21:45)
[2018-09-18 06:19] LABS: Glucose,Whole Blood 213 mg/dL (75-99)
[2018-09-18 06:59] LABS: Basophils % (A) 1 %; Eosinophils # (A) 0.4 k/uL (0-0.7); Eosinophils % (A) 6 %; HGB 11.2 gm/dL (11.4-16.0); Lymphocytes # (A) 2.4 k/uL (1.0-4.8); Lymphocytes % (A) 32 %; MCH 27.3 pg (25.0-35.0); MCHC 31.9 g/dL (31.0-37.0); MCV 85.6 fL (80.0-100.0); Mean Platelet Volume 6.9; Monocytes # (A) 0.4 k/uL (0-1.0); Monocytes % (A) 5 %; Neutrophils # (A) 4.1 k/uL (1.3-7.7); Neutrophils % (A) 55 %; Platelet Count 217 k/uL (150-450); RBC 4.09 m/uL (3.80-5.40); RDW 15.2 % (11.5-15.5); WBC 7.4 k/uL (3.8-10.6)
[2018-09-18] MEDS: INSULIN ASPART 100 UNIT/ML 1 ML 10 ML VIAL SQ SCH ×4 (07:08→23:14)
[2018-09-18] MEDS: LEVOTHYROXINE 50 MCG TAB PO SCH (07:08)
[2018-09-18] MEDS: MULTIVITAMINS, THERA 1 EACH TAB PO SCH (07:08)
[2018-09-18] MEDS: acetaZOLAMIDE 250 MG TAB PO SCH (07:09)
[2018-09-18] MEDS: CHOLECALCIFEROL 1,000 UNIT TAB PO SCH (07:09)
[2018-09-18 07:10] LABS: ALT 28 U/L (9-52); AST 19 U/L (14-36); Alkaline Phosphatase 92 U/L (38-126); Anion Gap 4 mmol/L; Blood Urea Nitrogen 21 mg/dL (7-17); Calcium 9.4 mg/dL (8.4-10.2); Carbon Dioxide 27 mmol/L (22-30); Chloride 108 mmol/L (98-107); Cholesterol 155 mg/dL (<200); Glucose 230 mg/dL (74-99); HDL Cholesterol 47 mg/dL (40-60); LDL Cholesterol,Calculated 87 mg/dL (0-99); Potassium 4.1 mmol/L (3.5-5.1); Sodium 139 mmol/L (137-145); Total Bilirubin 0.6 mg/dL (0.2-1.3); Total Protein 5.5 g/dL (6.3-8.2); Triglycerides 104 mg/dL (<150)
[2018-09-18] MEDS: LISINOPRIL 2.5 MG TAB PO SCH (07:10)
[2018-09-18] MEDS: LOSARTAN 50 MG TAB PO SCH (07:11)
[2018-09-18] MEDS: METOPROLOL TARTRATE 25 MG TAB PO SCH ×2 (07:12→23:14)
[2018-09-18] MEDS: PANTOPRAZOLE 40 MG TABLET PO SCH (08:22)
[2018-09-18] MEDS ORDERED: NON-FORMULARY DRUG (Ginkgo Biloba Leaf Extract [Ginkgo] 60 MG) PO SCH (09:00)
[2018-09-18] MEDS ORDERED: GINSENG 100 MG PO SCH (09:00)
[2018-09-18] MEDS ORDERED: NON-FORMULARY DRUG (Vitamin B Complex [Vitamin B Complex] 1 CAP) PO SCH (09:00)
[2018-09-18] MEDS ORDERED: ASPIRIN 325 MG TAB PO SCH (09:00)
[2018-09-18] MEDS ORDERED: diphenhydrAMINE 50 MG/ML 1 ML VIAL IVP ONE (09:55)
[2018-09-18] MEDS ORDERED: methylPREDNISolone SOD SUCCI 125 MG/2 ML VIAL IV ONE (09:55)
[2018-09-18] MEDS ORDERED: IV FLUID CONTINUATION 1,000 ML IV ONE (09:58)
[2018-09-18] MEDS ORDERED: LIDOCAINE 1% INJ 10MG/ML (20 ML MDV) SQ ONE ×2 (10:22→10:56)
[2018-09-18] MEDS ORDERED: METOPROLOL TARTRATE 5 MG/5 ML VIAL IVP ONE (10:24)
[2018-09-18] MEDS ORDERED: hydrALAZINE HCL 20 MG/ML 1 ML VIAL IVP ONE ×2 (10:25→11:22)
[2018-09-18] MEDS ORDERED: MIDAZOLAM 2 MG/2 ML VIAL IVP ONE (10:28)
[2018-09-18] MEDS ORDERED: fentaNYL (PF) 50 MCG/ML 2 ML AMP IVP ONE ×3 (10:28→11:26)
[2018-09-18] MEDS ORDERED: VERAPAMIL SYRINGE (5 MG/10 ML) INTRAARTER ONE ×3 (10:28→10:48)
[2018-09-18] MEDS ORDERED: BIVALIRUDIN BOLUS 250 MG/50 ML IV ONE (10:58)
[2018-09-18] MEDS ORDERED: IOPAMIDOL-370 125ML BTL INJ ONE (10:59)
[2018-09-18] MEDS ORDERED: BIVALIRUDIN 250 MG in SODIUM CHLORIDE 0.9% 50 ML IV ONE ×2 (11:00→11:16)
[2018-09-18] MEDS ORDERED: TICAGRELOR 90 MG TAB PO ONE (11:14)
[2018-09-18] MEDS ORDERED: IOPAMIDOL-370 100ML BTL INJ ONE (11:24)
[2018-09-18] MEDS ORDERED: ZOLPIDEM 5 MG TAB PO PRN (11:38)
[2018-09-18] MEDS ORDERED: NITROGLYCERIN SL TABS 0.4 MG TAB SUBLINGUAL PRN (11:38)
[2018-09-18] MEDS ORDERED: RX INFO: IV CONTRAST WAS GIVEN 1 EACH MISC MISCELLANE PRN (11:38)
[2018-09-18] MEDS ORDERED: MAG HYDROX/AL HYDROX/SIMETH 30 ML CUP PO PRN (11:38)
[2018-09-18] MEDS ORDERED: ATROPINE SULFATE 0.1 MG/ML 10ML SYRINGE IV PRN (11:38)
[2018-09-18] MEDS ORDERED: SODIUM CHLORIDE 0.9% 1,000 ML IV SCH (11:45)
--- NOTE | 2018-09-18 12:20 | CC ---
CARDIAC CATHETERIZATION REPORT DATE OF SERVICE: September 18, 2018 PERFORMING PHYSICIAN: Joesph Quevedo MD, transmission repairer. PROCEDURE PERFORMED: 1. Selective right and left coronary angiogram. 2. Left heart catheterization. 3. Successful stenting of the proximal LAD using 3.5 x 15 mm Xience HANNAH with excellent angiographic results. 4. Successful stenting of the PLV branch of the right coronary artery using 2.0 x 12 mm Purdys drug-eluting stent with excellent angiographic results. INDICATION: This is a pleasant 68-year-old female patient who sees Dr. Acevedo in the office as an outpatient with hypertension and dyslipidemia who was admitted to the hospital with chest discomfort and underwent myocardial perfusion imaging stress test and that revealed an anterior ischemia. Because of that, a heart catheterization was advised. The patient requested a heart catheterization to be performed from a radial approach and because of that I am performing the heart catheterization on her. APPROACH: 1. Right radial artery. 2. Right common femoral artery. COMPLICATION: None. LEVEL OF SEDATION: Moderate with sedation length of 58 minutes. PROCEDURE DESCRIPTION: After obtaining an informed consent, the patient was brought to the cardiac animal laboratory helper. The right radial artery was cannulated using micropuncture technique, the micropuncture wire passed easily then I placed a 6-Burkinan sheath in the right radial artery. I did give the patient 2 mg of verapamil and 200 nitroglycerin as well. Subsequently, both have both verapamil and nitroglycerin were given IA. Subsequently I did perform selective right and left coronary angiogram using JR4 and JL3.5 catheters. Left heart catheterization was performed using 5-Burkinan pigtail catheter. During the approach from the right radial, the patient was experiencing severe right arm discomfort and because of that, I decided to terminate the procedure from the right arm approach and pursue with the right groin. SELECTIVE CORONARY ANGIOGRAM: 1. The right coronary artery is a large caliber vessel and it is a dominant vessel. The proximal and mid RCA and distal RCA are angiographically normal. The RCA bifurcates into PDA and PLV branches. The PLV branch of the RCA has a tight lesion appeared to be in the range of 80%. 2. The left main is angiographically normal. It bifurcates into left circumflex and left anterior descending artery. 3. The left circumflex is a large caliber vessel. It is a nondominant vessel. The proximal circumflex appeared to have mild disease only. It gives rise into a large OM branch, which appeared to be angiographically normal. The mid and distal circumflex are angiographically normal and the circumflex becomes moderate caliber vessel in the AV groove. 4. The LAD: The proximal LAD has eccentric lesion, was best seen on the RUCKER caudal view. The lesion appeared to be in the range of 70%. The mid LAD has intermediate lesion only, appeared to be in the range of 50% only. The LAD distally is angiographically normal. HEMODYNAMICS: The left ventricular end-diastolic pressure was 20 mmHg with mild gradient across the aortic valve. PCI OF THE LAD WELL RCA: The right common femoral artery was cannulated using micropuncture technique and a micropuncture wire passed easily then I placed a 6-Burkinan sheath in the right common femoral artery. I did engage the left main using JL3.5 guide. I did wire the LAD using a run-through wire. I did direct stenting of the lesion in the LAD using 3.5 x 15 mm Xience HANNAH where the stent was positioned under fluoroscopy guidance and deployed under 10 atmospheres for 20 seconds. I post dilated the stent using 3.5 mm NC balloon. The final results were excellent with a reduction of stenosis from 70% to 0%. For the lesion in the RCA, I did engage the RCA using JR4 guide. A Whisper wire was used to wire the PLV branch of the RCA. After that, I did balloon angioplasty using 2.0 x 12 mm balloon before I deployed a 2.0 x 15 mm Osmel drug-eluting stent where the stent was positioned under fluoroscopy guidance and deployed under its nominal pressure. The following angiogram showed good angiographic results as well. The procedure was completed without any complication. CONCLUSION: 1. Critical disease involving the PLV branch of the right coronary artery. 2. Normal left main coronary artery. 3. Mild disease involving the left circumflex coronary artery. 4. Severe disease involving the proximal left anterior descending artery. 5. Successful stenting of the PLV branch of the RCA and the proximal left anterior descending artery using drug-eluting stents with excellent angiographic results and without any complication. 6. For any future heart catheterization, I would avoid radial approach in view of the severe pain and spasm the patient experienced. POSTPROCEDURE MANAGEMENT: 1. Dual antiplatelet therapy. 2. Risk factors modification. 3. Follow up with the patient. MMODL / IJN: [id number] /
[2018-09-18 12:37] LABS: Glucose,Whole Blood 254 mg/dL (75-99)
[2018-09-18] MEDS: PREGABALIN 75 MG CAP PO SCH ×2 (12:45→23:15)
[2018-09-18] MEDS ORDERED: IPRATROPIUM-ALBUTEROL 3 ML NEB INHALATION PRN (13:59)
--- NOTE | 2018-09-18 14:08 | P.PN ---
Subjective Progress Note Date: 09/18/18 This is a 68-year-old female patient of Dr. Michel. Patient presented to the emergency room with complaints of chest pain and the feeling of rapid heart rate that has been occurring intermittently for the past 2 weeks. Patient states last night her chest pain significantly increases. Patient has known past medical history of CVA/TIA in 2008, diabetes mellitus, I disorder, essential hypertension, osteoporosis, sleep apnea, thyroid disorder and anxiety and bipolar. EKG completed in ER showing atrial fibrillation with rapid ventricular response heart rate in the 140s. Patient started on Cardizem and heparin drip. Cardiology service consulted. Initial troponin negative. Second troponin elevated at 0.043 discussed case with cardiology services. Planning heart catheterization later today. 2-D echo has been ordered. At this time patient complains of mild chest discomfort. Patient denies shortness of breath. Patient denies nausea vomiting or diarrhea. Patient denies any urinary burning or frequency On 09/18/2018 status post cardiac catheterization. Patient received a stent to the PLV branch of the RCA proximal left anterior descending artery. At this time patient is resting in bed. Patient is complaining of increased shortness of breath. Pulse ox 96 on 2 L nasal cannula. Patient does have some extremely wheezing and diminished breath sounds. Will order chest x-ray at this time. Patient also complaining of left shoulder pain. Patient states she fell back in December and has had issues with pain in that left shoulder. Patient requesting x-ray of that left shoulder to further assess. This time patient denies chest pain. Patient denies nausea vomiting or diarrhea. Patient denies any urinary burning or frequency. Objective - Vital Signs Vital signs: Vital Signs Temp 96.9 F L 09/18/18 12:08 Pulse 72 09/18/18 12:23 Resp 18 09/18/18 12:23 BP 177/76 09/18/18 12:23 Pulse Ox 91 L 09/18/18 12:23 Intake & Output 09/17/18 09/18/18 09/18/18 18:59 06:59 18:59 Intake Total 623 379.22 235.8 Balance 623 379.22 235.8 Weight 144.8 kg Intake: IV 235.8 Intake, IV Titration 143 379.22 Amount Heparin Sod,Pork in 0.45% 379.22 NaCl 25,000 unit In 0.45 % NaCl 1 500ml.bag @ 6 UNITS/KG/HR 17.36 mls/hr IV .Q24H [facility] Rx#: [id number] Sodium Chloride 0.9% 1, 143 000 ml In Empty Bag 1 bag @ 1 ML/KG/HR 143.9 mls/ hr IV .Q6H57M ONE Rx#: [id number] Oral 480 Other: Voiding Method Toilet Toilet Toilet # Voids 1 - Exam Head normocephalic Neck supple Lungs clear to auscultation bilaterally no wheezing or crackles Heart regular rate and rhythm S1-S2, no rub or gallop Abdomen is soft nontender nondistended positive bowel sounds no hepatosplenomegaly Extremities no edema Neuro alert and orientated to 3 - Labs CBC & Chem 7: 09/18/18 06:21 09/18/18 06:21 Labs: Abnormal Lab Results - Last 24 Hours (Table) 09/17/18 09/17/18 09/17/18 Range/Units 05:29 13:50 16:43 Hgb (11.4-16.0) gm/dL APTT 48.8 H (22.0-30.0) sec Chloride (98-107) mmol/L BUN (7-17) mg/dL Glucose (74-99) mg/dL POC Glucose (mg/dL) 207 H (75-99) mg/dL Hemoglobin A1c 10.6 H (4.0-6.0) % Total Protein (6.3-8.2) g/dL Albumin (3.5-5.0) g/dL 09/17/18 09/18/18 09/18/18 Range/Units 21:38 06:18 06:21 Hgb 11.2 L (11.4-16.0) gm/dL APTT (22.0-30.0) sec Chloride (98-107) mmol/L BUN (7-17) mg/dL Glucose (74-99) mg/dL POC Glucose (mg/dL) 210 H 213 H (75-99) mg/dL Hemoglobin A1c (4.0-6.0) % Total Protein (6.3-8.2) g/dL Albumin (3.5-5.0) g/dL 09/18/18 09/18/18 Range/Units 06:21 12:34 Hgb (11.4-16.0) gm/dL APTT (22.0-30.0) sec Chloride 108 H (98-107) mmol/L BUN 21 H (7-17) mg/dL Glucose 230 H (74-99) mg/dL POC Glucose (mg/dL) 254 H (75-99) mg/dL Hemoglobin A1c (4.0-6.0) % Total Protein 5.5 L (6.3-8.2) g/dL Albumin 3.0 L (3.5-5.0) g/dL Assessment and Plan Assessment: 1. Chest pain. EKG completed emergency room showing atrial fibrillation with rapid ventricular response. Initial troponin negative. Second troponin elevated 0.043. Patient currently on Cardizem and heparin drip. Cardiology services following. Planning heart catheterization later today. 2-D echo completed showing EF between 50-55%. Patient underwent cardiac catheterization receiving 2 stents one to the PCL branch of the RCA and the LAD below. 2. New onset atrial fibrillation. Patient currently on heparin drip. Cardiology services following. Currently on Cardizem drip 3. History of CVA/TIA in 2008. Patient states she has trouble finding her words having a stroke 4. Diabetes mellitus 5. Essential hypertension 6. History of osteoarthritis 10. Sleep apnea. Patient wears CPAP at home 11. Hypothyroidism. Synthroid resumed 12. Anxiety and depression. Home dose of Lyrica resumed 13. Increased shortness of breath. At this time will order chest x-ray and albuterol breathing treatments. 14. Increased left shoulder pain. Patient reports that she fell back in December and injured her left shoulder. Patient states shoulder pain has significantly improved with the last 48 hours. Patient herself is requesting x- rays of left shoulder DVT prophylaxix Brilinata and GI prophaylxsis protonix
[2018-09-18 14:22] LABS: Glucose,Whole Blood 283 mg/dL (75-99)
[2018-09-18] MEDS ORDERED: FUROSEMIDE 10 MG/ML 2 ML VIAL IV ONE (14:44)
--- NOTE | 2018-09-18 15:17 | XR ---
EXAMINATION TYPE: XR chest 1V DATE OF EXAM: 09/18/2018 COMPARISON: 04/25/2017 HISTORY: Shortness of breath TECHNIQUE: Single frontal view of the chest is obtained. FINDINGS: Elevated right hemidiaphragm with mild cardiomegaly. No pneumothorax. Arthropathy of the s houlders. Interstitium is mildly prominent. No pleural effusion or pneumothorax. Vague density medial margin right upper lobe. IMPRESSION: 1. Elevated right hemidiaphragm with subsegmental right perihepatic and suprahilar atelectasis or inf iltrate. Follow to resolution to exclude other etiologies. 2. Mild central interstitial prominence may be on the basis of chronic interstitial lung disease rath er than venous congestion correlate clinically.
[2018-09-18 16:56] LABS: Glucose,Whole Blood 301 mg/dL (75-99)
[2018-09-18] MEDS: IPRATROPIUM-ALBUTEROL 3 ML NEB INHALATION SCH ×2 (18:00→20:10)
--- NOTE | 2018-09-18 20:07 | XR ---
EXAMINATION TYPE: XR shoulder complete LT DATE OF EXAM: 09/18/2018 COMPARISON: NONE HISTORY: Fall. Shoulder pain TECHNIQUE: 3 views FINDINGS: There is no fracture nor dislocation. Glenohumeral joint is intact. Joint spaces are fairly normal. IMPRESSION: Negative left shoulder exam.
[2018-09-18 20:52] LABS: Glucose,Whole Blood 422 mg/dL (75-99)
[2018-09-18 23:10] LABS: Glucose,Whole Blood 425 mg/dL (75-99)
[2018-09-18] MEDS: CALCIUM CARB-VIT D 500MG-200UN 1 EACH TAB PO SCH (23:14)
[2018-09-18] MEDS: TICAGRELOR 90 MG TAB PO SCH (23:15)
[2018-09-18] MEDS: INSULIN DETEMIR 100 UNIT/ML 10 ML VIAL SQ SCH (23:15)
[2018-09-19 05:41] LABS: Glucose,Whole Blood 307 mg/dL (75-99)
[2018-09-19 06:27] LABS: Basophils % (A) 0 %; Eosinophils % (A) 0 %; HCT 37.7 % (34.0-46.0); Hypochromasia Slight; Lymphocytes # (A) 1.3 k/uL (1.0-4.8); Lymphocytes % (A) 13 %; MCH 27.5 pg (25.0-35.0); MCHC 31.9 g/dL (31.0-37.0); MCV 86.2 fL (80.0-100.0); Mean Platelet Volume 6.9; Monocytes # (A) 0.7 k/uL (0-1.0); Monocytes % (A) 7 %; Neutrophils # (A) 8.3 k/uL (1.3-7.7); Neutrophils % (A) 79 %; Platelet Count 286 k/uL (150-450); RBC 4.37 m/uL (3.80-5.40); RDW 15.1 % (11.5-15.5); WBC 10.5 k/uL (3.8-10.6)
[2018-09-19 06:36] LABS: Albumin 3.3 g/dL (3.5-5.0); Calcium 10.5 mg/dL (8.4-10.2); Potassium 4.2 mmol/L (3.5-5.1); Total Bilirubin 0.6 mg/dL (0.2-1.3)
[2018-09-19] MEDS: LEVOTHYROXINE 50 MCG TAB PO SCH (07:29)
[2018-09-19] MEDS: INSULIN ASPART 100 UNIT/ML 1 ML 10 ML VIAL SQ SCH ×5 (07:29→21:58)
[2018-09-19] MEDS: PANTOPRAZOLE 40 MG TABLET PO SCH (07:29)
[2018-09-19] MEDS: HEPARIN SOD,PORK IN 0.45% NACL 25,000 UNIT in 0.45% NACL 1 500ML.BAG IV SCH (08:17)
[2018-09-19] MEDS: PREGABALIN 75 MG CAP PO SCH ×2 (08:38→20:09)
[2018-09-19] MEDS: MULTIVITAMINS, THERA 1 EACH TAB PO SCH (08:38)
[2018-09-19] MEDS: LISINOPRIL 2.5 MG TAB PO SCH (08:38)
[2018-09-19] MEDS: CHOLECALCIFEROL 1,000 UNIT TAB PO SCH (08:38)
[2018-09-19] MEDS: METOPROLOL TARTRATE 25 MG TAB PO SCH ×2 (08:38→20:08)
[2018-09-19] MEDS: TICAGRELOR 90 MG TAB PO SCH ×2 (08:39→20:09)
[2018-09-19] MEDS: ASPIRIN 325 MG TAB PO SCH (08:39)
[2018-09-19] MEDS: LOSARTAN 50 MG TAB PO SCH (08:39)
[2018-09-19] MEDS: IPRATROPIUM-ALBUTEROL 3 ML NEB INHALATION SCH ×4 (08:53→20:17)
--- NOTE | 2018-09-19 11:24 | P.PN ---
Subjective Progress Note Date: 09/19/18 This is a 68-year-old female patient of Dr. Michel. Patient presented to the emergency room with complaints of chest pain and the feeling of rapid heart rate that has been occurring intermittently for the past 2 weeks. Patient states last night her chest pain significantly increases. Patient has known past medical history of CVA/TIA in 2008, diabetes mellitus, I disorder, essential hypertension, osteoporosis, sleep apnea, thyroid disorder and anxiety and bipolar. EKG completed in ER showing atrial fibrillation with rapid ventricular response heart rate in the 140s. Patient started on Cardizem and heparin drip. Cardiology service consulted. Initial troponin negative. Second troponin elevated at 0.043 discussed case with cardiology services. Planning heart catheterization later today. 2-D echo has been ordered. At this time patient complains of mild chest discomfort. Patient denies shortness of breath. Patient denies nausea vomiting or diarrhea. Patient denies any urinary burning or frequency On 09/18/2018 status post cardiac catheterization. Patient received a stent to the PLV branch of the RCA proximal left anterior descending artery. At this time patient is resting in bed. Patient is complaining of increased shortness of breath. Pulse ox 96 on 2 L nasal cannula. Patient does have some extremely wheezing and diminished breath sounds. Will order chest x-ray at this time. Patient also complaining of left shoulder pain. Patient states she fell back in December and has had issues with pain in that left shoulder. Patient requesting x-ray of that left shoulder to further assess. This time patient denies chest pain. Patient denies nausea vomiting or diarrhea. Patient denies any urinary burning or frequency. 09/19/2018 patient worsening shortness of breath yesterday did receive 1 dose of IV Lasix 20 mg. Chest x-ray showing elevated right hemidiaphragm with some segmental right perihepatic and suprahilar atelectasis or infiltrate. Mild central interstitial prominence may be on the basis of chronic interstitial lung disease rather than venous congestion. Patient reports improvement in her shortness of breath. However she still feels better with the oxygen on. Pulmonary service will be consulted. Patient has converted from atrial fibrillation to normal sinus rhythm. Blood sugars have been elevated in the 200s to 300s. Restarted her NovoLog 6 units twice a day before meals. She's had elevated blood pressures during this admission cardiology is following. A1c 10.6. Shoulder x-ray negative. Objective - Vital Signs Vital signs: Vital Signs Temp 97.1 F L 09/19/18 08:00 Pulse 74 09/19/18 08:00 Resp 20 09/19/18 08:00 BP 148/70 09/19/18 08:00 Pulse Ox 99 09/19/18 08:00 Intake & Output 09/18/18 09/19/18 09/19/18 18:59 06:59 18:59 Intake Total 625.8 240 Balance 625.8 240 Weight 144.8 kg 142.1 kg Intake: IV 235.8 Oral 390 240 Other: Voiding Method Toilet Toilet # Voids 3 1 1 - Exam Head normocephalic Neck supple Lungs clear to auscultation bilaterally no wheezing or crackles Heart regular rate and rhythm S1-S2, no rub or gallop Abdomen is soft nontender nondistended positive bowel sounds no hepatosplenomegaly Extremities no edema Neuro alert and orientated to 3 - Labs CBC & Chem 7: 09/19/18 05:52 09/19/18 05:52 Labs: Abnormal Lab Results - Last 24 Hours (Table) 09/18/18 09/18/18 09/18/18 Range/Units 12:34 14:20 16:49 Neutrophils # (1.3-7.7) k/uL Chloride (98-107) mmol/L BUN (7-17) mg/dL Glucose (74-99) mg/dL POC Glucose (mg/dL) 254 H 283 H 301 H (75-99) mg/dL Calcium (8.4-10.2) mg/dL Total Protein (6.3-8.2) g/dL Albumin (3.5-5.0) g/dL 09/18/18 09/18/18 09/19/18 Range/Units 20:49 23:06 05:38 Neutrophils # (1.3-7.7) k/uL Chloride (98-107) mmol/L BUN (7-17) mg/dL Glucose (74-99) mg/dL POC Glucose (mg/dL) 422 H 425 H 307 H (75-99) mg/dL Calcium (8.4-10.2) mg/dL Total Protein (6.3-8.2) g/dL Albumin (3.5-5.0) g/dL 09/19/18 09/19/18 Range/Units 05:52 05:52 Neutrophils # 8.3 H (1.3-7.7) k/uL Chloride 110 H (98-107) mmol/L BUN 24 H (7-17) mg/dL Glucose 319 H (74-99) mg/dL POC Glucose (mg/dL) (75-99) mg/dL Calcium 10.5 H (8.4-10.2) mg/dL Total Protein 6.0 L (6.3-8.2) g/dL Albumin 3.3 L (3.5-5.0) g/dL Assessment and Plan Assessment: 1. Chest pain with acute coronary syndrome: Patient status post heart catheterization with 2 stents one to the PLV branch of the RCA and the LAD. She had mildly elevated troponin. 2-D echo completed showing EF between 50-55% 2. New onset atrial fibrillation. Has converted to normal sinus rhythm. Currently off of the Cardizem drip and IV heparin. Discussed with cardiology nurse practitioner. They will be addressing anticoagulation for this patient 3. History of CVA/TIA in 2008. Patient states she has trouble finding her words since having a stroke 4. Diabetes mellitus insulin-dependent. Blood sugars are uncontrolled. A1c is 10.6. We'll restart his lispro 6 mg twice a day before meals. Change in diet to a diabetic diet. Consult lifestyle coordinator. Continue Lantus and sliding scale coverage 5. Essential hypertension with elevated blood pressures. Medication adjustments per cardiology 6. History of osteoarthritis 10. Sleep apnea. Patient wears CPAP at home 11. Hypothyroidism. Synthroid resumed 12. Anxiety and depression. Home dose of Lyrica resumed 13. Increased shortness of breath. Did show some improvement with IV Lasix. Chest x-ray results noted. Consult pulmonary service. 14. Increased left shoulder pain. Patient reports that she fell back in December and injured her left shoulder. Patient states shoulder pain has significantly improved with the last 48 hours. X-ray of shoulder was negative for any fracture or dislocation. DVT prophylaxix Brilinata and GI prophaylxsis protonix I performed an examination of the patient and discussed their management with the physician Panel Coverer. I have reviewed the Physician Panel Coverer's notes and agree with the documented findings and plan of care
[2018-09-19 12:00] LABS: Glucose,Whole Blood 289 mg/dL (75-99)
[2018-09-19 14:43] VITALS: BMI 50.5
[2018-09-19 16:38] LABS: Glucose,Whole Blood 338 mg/dL (75-99)
--- NOTE | 2018-09-19 16:57 | P.CNPUL ---
History of Present Illness Consult date: 09/19/18 Reason for consult: dyspnea History of present illness: 68-year-old female patient, presented to the ED because of chest pain, palpitations and she was found to have rapid heart rate which she described that was occurring for the past 2 weeks. Pain was over the anterior chest area and was waxing and waning. She is known to have previous history of CVA back in 2008, diabetes mellitus, hypertension, hypothyroidism, questionable obstructive sleep apnea and chronic anxiety/bipolar disorder. Her EKG showed atrial fibrillation with rapid ventricular response and a heart rate was in the 140s. She was started on a Cardizem drip and IV heparin. Subsequently she converted to normal sinus rhythm. She was seen by cardiology. The second troponin was slightly elevated at 0.04. Based on the overall presentation, the patient was taken to cardiac catheterization and the patient was found to have coronary artery disease and the patient underwent successful stenting of the proximal LAD and stenting of the PLV branch of the right coronary artery with drug eluting stents and the patient had good angiographic response. Patient also had some increased shortness of breath. Chest x-ray was done and admission showed no acute abnormalities. Subsequent chest exit was done on showed some increased pulmonary vascular markings. Right hemidiaphragm was noted to be elevated may need its anterior portion. Note that the previous chest x-ray from March 2017 showed some limited increase in the right hemidiaphragm and this abnormality is been exaggerated on subsequent chest x- rays. Echo of the heart showed ejection fraction of 50-55%. No evidence of any pulmonary hypertension. No evidence of any valvular heart disease. There is hypertensive heart disease with moderate degree of concentric LVH. Currently the patient is on DuoNeb nebulized units [id number], metoprolol , aspirin and Brillinta . The patient is also on Zestril. The patient is on Levemir insulin for blood sugar control in addition to a sliding scale coverage. In terms of obstructive sleep apnea, the patient does not have any official diagnosis yet. The patient has been utilizing his CPAP machine that was given to her . She started using it however she did not feel comfortable and ultimately stand up stopping the treatment. In the past, the patient was given a polysomnogram however she claims that she was unable to complete the study as the patient was awake throughout the night. Clinically, she has limited systolic without any witnessed apneas and excessive hypersomnia and sleepiness. In fact I feel that she has a component of insomnia more than obstructive sleep apnea. This patient is a lifetime nonsmoker. Review of Systems Constitutional: Denies chills, Denies fever Eyes: denies blurred vision, denies bulging eye, denies decreased vision Ears: deny: decreased hearing, ear discharge, earache, tinnitus Ears, nose, mouth and throat: Denies headache, Denies sore throat Cardiovascular: Reports chest pain, Reports decreased exercise tolerance, Reports dyspnea on exertion Respiratory: Reports dyspnea, Reports sleep apnea, Reports snoring Gastrointestinal: Denies abdominal pain, Denies diarrhea, Denies nausea, Denies vomiting Genitourinary: Denies dysuria, Denies hematuria Menstruation: Reports as per HPI Musculoskeletal: absent: ankle pain, ankle stiffness, ankle swelling Integumentary: Denies pruritus, Denies rash Neurological: Denies numbness, Denies weakness Psychiatric: Denies anxiety, Denies depression Endocrine: Reports as per HPI Hematologic/Lymphatic: Reports as per HPI Allergic/Immunologic: Reports as per HPI Past Medical History Past Medical History: CVA/TIA, Diabetes Mellitus, Eye Disorder, Hypertension, Osteoarthritis (OA), Sleep Apnea/CPAP/BIPAP, Thyroid Disorder Additional Past Medical History / Comment(s): Coronary artery disease, details as discussed above, 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 History of Any Multi-Drug Resistant Organisms: None Reported Past Surgical History: Breast Surgery, Hysterectomy, Orthopedic Surgery, Tubal Ligation Additional Past Surgical History / Comment(s): thyroid biopsies, rt knee arthroscopic surgery, bilateral feet hammer toe repairs, D&C, bilateral CATARACT SURGERY with lens implants, colonoscopies, bilateral breast lumpectomies-benign, tilt table test. Past Anesthesia/Blood Transfusion Reactions: Motion Sickness Additional Past Anesthesia/Blood Transfusion Reaction / Comment(s): LOW BLOOD PRESSURE WITH SURGERY. STATES PROBLEMS WITH MEMORY WITH ANESTHESIA ".No prior blood transfusions Past Psychological History: Anxiety, Bipolar, Depression Additional Psychological History / Comment(s): Manic Depressive Smoking Status: Never smoker Past Alcohol Use History: None Reported Past Drug Use History: None Reported - Past Family History Father Family Medical History: Cancer Additional Family Medical History / Comment(s): Father had lymphoma. He had LUNG, BONE, THROAT AND MOUTH CANCER Brother(s) Family Medical History: Myocardial Infarction (CT) Additional Family Medical History / Comment(s): Muscle Disease, Rheumatic fever at 2 years old Mother Family Medical History: Cancer Additional Family Medical History / Comment(s): lung cancer- mother. She at the age of 79yrs from esophageal valencia after radiation-unable to eat. Patient states "mother had aneurysm". Medications and Allergies Home Medications Medication Instructions Recorded Confirmed Type Insulin Glargine [Lantus] 60 unit SQ HS 04/26/15 09/16/18 History Multivitamin with Iron [Daily 1 tab PO DAILY 04/26/15 09/16/18 History Multivitamin with Iron] Cholecalciferol [Vitamin D3] 5,000 unit PO DAILY 08/28/16 09/16/18 History Ginkgo Biloba [place] Extract [Ginkgo] 60 mg PO DAILY 08/28/16 09/16/18 History Vitamin B Complex 1 cap PO DAILY 08/28/16 09/16/18 History Aspirin 243 mg PO DAILY 04/25/17 09/16/18 History Pregabalin [Lyrica] 75 mg PO BID 04/25/17 09/16/18 History Levothyroxine Sodium [Synthroid] 50 mcg PO QAM 08/21/17 09/16/18 History Metoprolol Tartrate [Lopressor] 25 mg PO BID 08/21/17 09/16/18 History Calcium Carbonate [Calcium] 300 mg PO HS 09/16/18 09/16/18 History Ginseng 100 mg PO DAILY 09/16/18 09/16/18 History Insulin Lispro [humaLOG Kwikpen] 6 unit SQ AC-BID 09/16/18 09/16/18 History Insulin Lispro [humaLOG Kwikpen] See Protocol SQ AC-BID 09/16/18 09/16/18 History Lisinopril [Zestril] 2.5 mg PO DAILY 09/16/18 09/16/18 History Losartan Potassium 100 mg PO DAILY 09/16/18 09/16/18 History Naproxen Sodium [Aleve] 220 mg PO DAILY PRN 09/16/18 09/16/18 History acetaZOLAMIDE [Diamox] 250 mg PO Q48H 09/16/18 09/16/18 History Allergies Allergy/AdvReac Type Severity Reaction Status Date / Time adhesive tape Allergy blisters Verified 09/16/18 23:13 Iodinated Contrast- Oral and Allergy Swelling, Verified 09/16/18 23:13 IV Dye SHORTNESS [Iodinated Contrast Media - OF BREATH IV Dye] latex Allergy Rash/Hives Verified 09/16/18 23:13 talc Allergy Rash/Hives Verified 09/16/18 23:13 amlodipine AdvReac ankle Verified 09/16/18 23:13 swelling hydralazine AdvReac Diarrhea Verified 09/16/18 23:13 metal Allergy Rash/Hives Uncoded 09/16/18 22:22 Physical Exam Vitals: Vital Signs Temp Pulse Pulse Resp BP BP Pulse Ox 09/19/18 15:27 97.8 F 67 18 170/70 97 09/19/18 11:12 96.3 F L 74 20 207/84 99 09/19/18 08:00 97.1 F L 74 20 148/70 99 09/19/18 04:00 97.4 F L 74 18 197/85 95 09/19/18 00:00 97.6 F 83 20 190/73 97 09/18/18 20:17 84 09/18/18 20:11 84 98 09/18/18 20:00 97.7 F 82 18 199/83 99 Intake and Output 09/19/18 09/19/18 09/19/18 06:59 14:59 22:59 Intake Total 240 Balance 240 Intake: Oral 240 Other: Voiding Method Toilet # Voids 1 1 Weight 142.1 kg 142.1 kg Gen. appearance she is calm comfortable likely distress Head exam was generally normal. There was no scleral icterus or corneal arcus. Mucous membranes were moist. Neck was supple and without jugular venous distension, thyromegaly, or carotid bruits. Carotids were easily palpable bilaterally. There was no adenopathy. Lungs were clear to auscultation and percussion, and with normal diaphragmatic excursion. No wheezes or rales were noted. Diminished breath on the right lung base more so anteriorly Cardiac exam revealed the PMI to be normally situated and sized. The rhythm was regular and no extrasystoles were noted during several minutes of auscultation. The first and second heart sounds were normal and physiologic splitting of the second heart sound was noted. There were no murmurs, rubs, clicks, or gallops. Abdominal exam revealed normal bowel sounds. The abdomen was soft, non-tender, and without masses, organomegaly, or appreciable enlargement of the abdominal aorta. Examination of the extremities revealed easily palpable radial, femoral and pedal pulses. There was no cyanosis, clubbing or edema. Examination of the skin revealed no evidence of significant rashes, suspicious appearing nevi or other concerning lesions. Neurologically awake and alert and there is no focal neurological deficits. Results - Laboratory Findings CBC and BMP: 09/19/18 05:52 09/19/18 05:52 PT/INR, D-dimer PT 10.0 sec (9.0-12.0) 09/17/18 05:25 INR 1.0 (<1.2) 09/17/18 05:25 Abnormal lab findings: Abnormal Labs 09/16/18 09/17/18 09/17/18 22:30 02:57 05:25 Hgb Neutrophils # APTT 46.3 H Sodium 136 L Chloride BUN 25 H Glucose 491 H POC Glucose (mg/dL) 353 H Hemoglobin A1c Calcium 10.5 H Alkaline Phosphatase 143 H Troponin I Total Protein Albumin 09/17/18 09/17/18 09/17/18 05:25 05:25 05:29 Hgb Neutrophils # APTT Sodium Chloride BUN 24 H Glucose 215 H POC Glucose (mg/dL) Hemoglobin A1c 10.6 H Calcium Alkaline Phosphatase Troponin I 0.043 H* Total Protein 5.7 L Albumin 3.1 L 09/17/18 09/17/18 09/17/18 06:21 10:32 13:50 Hgb Neutrophils # APTT 48.8 H Sodium Chloride BUN Glucose POC Glucose (mg/dL) 164 H Hemoglobin A1c Calcium Alkaline Phosphatase Troponin I 0.036 H* Total Protein Albumin 09/17/18 09/17/18 09/18/18 16:43 21:38 06:18 Hgb Neutrophils # APTT Sodium Chloride BUN Glucose POC Glucose (mg/dL) 207 H 210 H 213 H Hemoglobin A1c Calcium Alkaline Phosphatase Troponin I Total Protein Albumin 09/18/18 09/18/18 09/18/18 06:21 06:21 12:34 Hgb 11.2 L Neutrophils # APTT Sodium Chloride 108 H BUN 21 H Glucose 230 H POC Glucose (mg/dL) 254 H Hemoglobin A1c Calcium Alkaline Phosphatase Troponin I Total Protein 5.5 L Albumin 3.0 L 09/18/18 09/18/18 09/18/18 14:20 16:49 20:49 Hgb Neutrophils # APTT Sodium Chloride BUN Glucose POC Glucose (mg/dL) 283 H 301 H 422 H Hemoglobin A1c Calcium Alkaline Phosphatase Troponin I Total Protein Albumin 09/18/18 09/19/18 09/19/18 23:06 05:38 05:52 Hgb Neutrophils # 8.3 H APTT Sodium Chloride BUN Glucose POC Glucose (mg/dL) 425 H 307 H Hemoglobin A1c Calcium Alkaline Phosphatase Troponin I Total Protein Albumin 09/19/18 09/19/18 05:52 11:58 Hgb Neutrophils # APTT Sodium Chloride 110 H BUN 24 H Glucose 319 H POC Glucose (mg/dL) 289 H Hemoglobin A1c Calcium 10.5 H Alkaline Phosphatase Troponin I Total Protein 6.0 L Albumin 3.3 L - Diagnostic Findings Chest x-ray: image reviewed Assessment and Plan Plan: Assessment 1 acute chest pain/unstable angina, possible non-ST segment elevation myocardial infarction and the patient is post cardiac catheterization and stenting of the LAD and PLV branch of the RCA. 2 paroxysmal atrial fibrillation currently back into sinus rhythm 3 chest pain secondary to above, improved 4 hypertensive heart disease with moderate degree of concentric left ventricular hypertrophy with a mild component of pulmonary vessel congestion of the chest x-ray 5 limited elevation of the right hemidiaphragm, anteriorly. Exact etiology is not clear. Rule out previous trauma. 6 diabetes mellitus with a hemoglobin A1c of 10.6, indicating poor control 7 history of CVA/TIA as the patient had difficulties in speech following her stroke 8 hypertension 9 obstructive sleep apnea 10 hypothyroidism 11 chronic anxiety/depression 12 degenerative arthritis 13 chronic back pain with difficulty mobility and the patient on walks with the help of a cane. The patient has some mild degree of central canal stenosis L4- L5. Plan In regards to obstructive sleep apnea diagnosis, this is not an official diagnosis and I asked the patient not utilizing CPAP machine for now knowing that this may be potentially harmful if she does not have the right setting and the right diagnosis. If this testing is to be pursued, the patient may benefit from the home sleep study to confirm the findings and based on that'll make adjustments on the machine and the setting to make her treatment successful. I do not see the need for her to use her CPAP machine for now. As for the right hemidiaphragm, this is slightly elevated. The patient is asymptomatic. No need for any further workup other than an outpatient pulmonary function test at a later stage. She is recovering from cardiac procedure. She is currently on room air. She is also on his own normal sinus rhythm.
[2018-09-19] MEDS: CALCIUM CARB-VIT D 500MG-200UN 1 EACH TAB PO SCH (20:09)
[2018-09-19 21:11] LABS: Glucose,Whole Blood 306 mg/dL (75-99)
[2018-09-19] MEDS: INSULIN DETEMIR 100 UNIT/ML 10 ML VIAL SQ SCH (21:58)
[2018-09-20 00:57] LABS: Glucose,Whole Blood 232 mg/dL (75-99)
[2018-09-20] MEDS: PANTOPRAZOLE 40 MG TABLET PO SCH (05:47)
[2018-09-20] MEDS: LEVOTHYROXINE 50 MCG TAB PO SCH (05:47)
[2018-09-20 05:59] VITALS: RESP 16
[2018-09-20 06:31] LABS: Glucose,Whole Blood 127 mg/dL (75-99)
[2018-09-20] MEDS: INSULIN ASPART 100 UNIT/ML 1 ML 10 ML VIAL SQ SCH ×3 (06:41→12:44)
[2018-09-20 06:55] LABS: Basophils % (A) 0 %; Eosinophils # (A) 0.3 k/uL (0-0.7); Eosinophils % (A) 4 %; HCT 35.6 % (34.0-46.0); HGB 11.5 gm/dL (11.4-16.0); Lymphocytes # (A) 2.4 k/uL (1.0-4.8); Lymphocytes % (A) 30 %; MCH 27.4 pg (25.0-35.0); MCHC 32.2 g/dL (31.0-37.0); Mean Platelet Volume 7.1; Monocytes # (A) 0.5 k/uL (0-1.0); Monocytes % (A) 6 %; Neutrophils # (A) 4.7 k/uL (1.3-7.7); Neutrophils % (A) 59 %; Platelet Count 233 k/uL (150-450); RBC 4.19 m/uL (3.80-5.40); RDW 15.4 % (11.5-15.5)
[2018-09-20 07:03] LABS: Albumin 3.2 g/dL (3.5-5.0); Calcium 10.1 mg/dL (8.4-10.2); Potassium 3.9 mmol/L (3.5-5.1); Total Bilirubin 0.6 mg/dL (0.2-1.3); Total Protein 5.8 g/dL (6.3-8.2)
[2018-09-20] MEDS: IPRATROPIUM-ALBUTEROL 3 ML NEB INHALATION SCH ×2 (08:01→11:46)
[2018-09-20] MEDS: ASPIRIN 325 MG TAB PO SCH (09:18)
[2018-09-20] MEDS: TICAGRELOR 90 MG TAB PO SCH (09:19)
[2018-09-20] MEDS: PREGABALIN 75 MG CAP PO SCH (09:19)
[2018-09-20] MEDS: LISINOPRIL 2.5 MG TAB PO SCH (09:19)
[2018-09-20] MEDS: MULTIVITAMINS, THERA 1 EACH TAB PO SCH (09:19)
[2018-09-20] MEDS: METOPROLOL TARTRATE 25 MG TAB PO SCH (09:19)
[2018-09-20] MEDS: acetaZOLAMIDE 250 MG TAB PO SCH (09:19)
[2018-09-20] MEDS: LOSARTAN 50 MG TAB PO SCH (09:19)
[2018-09-20] MEDS: CHOLECALCIFEROL 1,000 UNIT TAB PO SCH (09:19)
[2018-09-20 11:54] LABS: Glucose,Whole Blood 280 mg/dL (75-99)
--- NOTE | 2018-09-20 12:12 | P.PN ---
Subjective Progress Note Date: 09/19/18 This is a pleasant 68-year-old female who follows with Dr. Acevedo in the office. She has known history of hypertension, hyperlipidemia, diabetes, prior TIA, nonsmoker, she was in the hospital approximately one year ago with accelerated hypertension, and echocardiogram with Doppler study was performed at that time which revealed an ejection fraction of 55-60%. She presents to the hospital on this occasion with symptoms of midsternal chest pressure and heaviness with radiation to her jaw, patient also states that she has been more short of breath than usual and is put on approximately 20 pounds in weight. She has noticed more swelling in her lower extremities and states that she's been having to sit up at night to breathe. Patient states that she told her grandson yesterday she felt that she may be having a heart attack and patient was brought to the hospital for this reason.her EKG on arrival here showed atrial fibrillation with a rapid ventricular response, subsequently she converted to normal sinus rhythmand continues to be in a normal sinus this morning.chest x-ray was normal.blood pressure on arrival here 159/109, 97% on room air, heart rate went in A. fib within the 130s, her heart rate this morning is in the 70s to 80s.blood pressure this morning 134/70. 94% on 2 L of oxygen.White blood cell count 10.6, hemoglobin 13.5, platelet count 296. Sodium 136, potassium 4.4, BUN 25, creatinine 0.8.magnesium level is 1.7.troponin 0.012, 0.043. TSH 1.8. BNP level 305. At the time of my examination this morning, patient is sitting up in her chair at bedside, denies any chest discomfort she does state she had some mild discomfort earlier this morning. Denies any shortness of breath at present. 09/19/2018 Patientwas taken to the cardiac catheterization lab yesterday where she underwent successful stenting of the proximal LAD and successful stenting of the PLV branch of the right coronary artery by Dr. Bhatt. She was seen and examined this morning, no chest pain or difficulty in breathing. Blood pressure mildly elevated, some adjustments have been made in her medications. We will observe her for 24 hours and plan for possible discharge home in the morning. Patient is currently on Brilinta 90 mg by mouth twice a day with a baby aspirin. She will continue this for 4-6 weeks, at which time both will be discontinued and patient then will be on xarelto 15 mg along with Plavix. This was explained to the patient and her daughter in detail as well. Objective - Vital Signs Vital signs: Vital Signs Temp 98.0 F 09/20/18 07:00 Pulse 80 09/20/18 08:15 Resp 16 09/20/18 07:00 BP 143/62 09/20/18 07:00 Pulse Ox 98 09/20/18 08:03 Intake & Output 09/19/18 09/20/18 09/20/18 18:59 06:59 18:59 Intake Total 360 240 Balance 360 240 Weight 142.1 kg Intake: Oral 360 240 Other: Voiding Method Toilet # Voids 1 1 1 - Exam PHYSICAL EXAMINATION: GENERAL:68-year-old female in no acute distress at the time of my examination HEENT: Head is atraumatic, normocephalic. Pupils equal, round. Sclera anicteric. Conjunctiva are clear. Mucous membranes of the mouth are moist. Neck is supple. There is no elevated jugular venous pressure.no carotid bruit is heard. HEART EXAMINATION: [Heart S1, S2 systolic murmur heard. No murmur or gallop heard.] CHEST EXAMINATION:[ Lungs are clear to auscultation and precussion. No chest wall tenderness is noted on palpation or with deep breathing.] ABDOMEN: [ Soft, nontender. Bowel sounds are heard. No organomegaly noted] .right radial site in right groin or soft, no evidence of any EXTREMITIES:[ 2+ peripheral pulses with trace evidence of peripheral edema and no calf tenderness noted]. NEUROLOGIC [patient is awake, alert and oriented X3.] . - Labs CBC & Chem 7: 09/20/18 06:43 09/20/18 06:43 Labs: Abnormal Lab Results - Last 24 Hours (Table) 09/19/18 09/19/18 09/20/18 Range/Units 16:30 21:09 00:54 Chloride (98-107) mmol/L BUN (7-17) mg/dL Glucose (74-99) mg/dL POC Glucose (mg/dL) 338 H 306 H 232 H (75-99) mg/dL AST (14-36) U/L Total Protein (6.3-8.2) g/dL Albumin (3.5-5.0) g/dL 09/20/18 09/20/18 09/20/18 Range/Units 06:28 06:43 11:48 Chloride 113 H (98-107) mmol/L BUN 23 H (7-17) mg/dL Glucose 129 H (74-99) mg/dL POC Glucose (mg/dL) 127 H 280 H (75-99) mg/dL AST 61 H (14-36) U/L Total Protein 5.8 L (6.3-8.2) g/dL Albumin 3.2 L (3.5-5.0) g/dL Assessment and Plan Plan: assessment and plan #1 atrial fibrillation with rapid ventricular response, paroxysmal, patient currently in normal sinus rhythm #2 symptoms of chest discomfort with radiation to the jaw, troponin 0.012, 0.043 , suggesting acute coronary syndrome, status post angioplasty and stenting of the LAD and stenting of the PLV branch of the right coronary artery. #3 hypertension, accelerated #4 hyperlipidemia #5 hypothyroidism, TSH normal #6 prior TIA plan Optimize the patient's blood pressure medications, continue baby aspirin and Brilinta which the patient will continue for 4-6 weeks at which time she will be changed over to Xarelto 15 mg along with Plavix plan on possible discharge home in the morning if stable. DNP note has been reviewed, I agree with a documented findings and plan of care. Patient was seen and examined.
--- NOTE | 2018-09-20 12:16 | P.PN ---
Subjective Progress Note Date: 09/20/18 This is a pleasant 68-year-old female who follows with Dr. Acevedo in the office. She has known history of hypertension, hyperlipidemia, diabetes, prior TIA, nonsmoker, she was in the hospital approximately one year ago with accelerated hypertension, and echocardiogram with Doppler study was performed at that time which revealed an ejection fraction of 55-60%. She presents to the hospital on this occasion with symptoms of midsternal chest pressure and heaviness with radiation to her jaw, patient also states that she has been more short of breath than usual and is put on approximately 20 pounds in weight. She has noticed more swelling in her lower extremities and states that she's been having to sit up at night to breathe. Patient states that she told her grandson yesterday she felt that she may be having a heart attack and patient was brought to the hospital for this reason.her EKG on arrival here showed atrial fibrillation with a rapid ventricular response, subsequently she converted to normal sinus rhythmand continues to be in a normal sinus this morning.chest x-ray was normal.blood pressure on arrival here 159/109, 97% on room air, heart rate went in A. fib within the 130s, her heart rate this morning is in the 70s to 80s.blood pressure this morning 134/70. 94% on 2 L of oxygen.White blood cell count 10.6, hemoglobin 13.5, platelet count 296. Sodium 136, potassium 4.4, BUN 25, creatinine 0.8.magnesium level is 1.7.troponin 0.012, 0.043. TSH 1.8. BNP level 305. At the time of my examination this morning, patient is sitting up in her chair at bedside, denies any chest discomfort she does state she had some mild discomfort earlier this morning. Denies any shortness of breath at present. 09/19/2018 Patient was taken to the cardiac catheterization lab yesterday where she underwent successful stenting of the proximal LAD and successful stenting of the PLV branch of the right coronary artery by Dr. Bhatt. She was seen and examined this morning, no chest pain or difficulty in breathing. Blood pressure mildly elevated, some adjustments have been made in her medications. We will observe her for 24 hours and plan for possible discharge home in the morning. Patient is currently on Brilinta 90 mg by mouth twice a day with a baby aspirin. She will continue this for 4-6 weeks, at which time both will be discontinued and patient then will be on xarelto 15 mg along with Plavix. This was explained to the patient and her daughter in detail as well. 12/21/2017 Patient was seen and examined this morning, blood pressure is stable.patient feels well, denies any chest pain or difficulty in breathing.Blood pressure 142/ 60 with a heart rate in the Objective - Vital Signs Vital signs: Vital Signs Temp 98.0 F 09/20/18 07:00 Pulse 80 09/20/18 08:15 Resp 16 09/20/18 07:00 BP 143/62 09/20/18 07:00 Pulse Ox 98 09/20/18 08:03 Intake & Output 09/19/18 09/20/18 09/20/18 18:59 06:59 18:59 Intake Total 360 240 Balance 360 240 Weight 142.1 kg Intake: Oral 360 240 Other: Voiding Method Toilet # Voids 1 1 1 - Exam PHYSICAL EXAMINATION: GENERAL:68-year-old female in no acute distress at the time of my examination HEENT: Head is atraumatic, normocephalic. Pupils equal, round. Sclera anicteric. Conjunctiva are clear. Mucous membranes of the mouth are moist. Neck is supple. There is no elevated jugular venous pressure.no carotid bruit is heard. HEART EXAMINATION: [Heart S1, S2 systolic murmur heard. No murmur or gallop heard.] CHEST EXAMINATION:[ Lungs are clear to auscultation and precussion. No chest wall tenderness is noted on palpation or with deep breathing.] ABDOMEN: [ Soft, nontender. Bowel sounds are heard. No organomegaly noted] .right radial site in right groin or soft, no evidence of any EXTREMITIES:[ 2+ peripheral pulses with trace evidence of peripheral edema and no calf tenderness noted]. NEUROLOGIC [patient is awake, alert and oriented X3.] . - Labs CBC & Chem 7: 09/20/18 06:43 09/20/18 06:43 Labs: Abnormal Lab Results - Last 24 Hours (Table) 09/19/18 09/19/18 09/20/18 Range/Units 16:30 21:09 00:54 Chloride (98-107) mmol/L BUN (7-17) mg/dL Glucose (74-99) mg/dL POC Glucose (mg/dL) 338 H 306 H 232 H (75-99) mg/dL AST (14-36) U/L Total Protein (6.3-8.2) g/dL Albumin (3.5-5.0) g/dL 09/20/18 09/20/18 09/20/18 Range/Units 06:28 06:43 11:48 Chloride 113 H (98-107) mmol/L BUN 23 H (7-17) mg/dL Glucose 129 H (74-99) mg/dL POC Glucose (mg/dL) 127 H 280 H (75-99) mg/dL AST 61 H (14-36) U/L Total Protein 5.8 L (6.3-8.2) g/dL Albumin 3.2 L (3.5-5.0) g/dL Assessment and Plan Plan: assessment and plan #1 atrial fibrillation with rapid ventricular response, paroxysmal, patient currently in normal sinus rhythm #2 symptoms of chest discomfort with radiation to the jaw, troponin 0.012, 0.043 , suggesting acute coronary syndrome, status post angioplasty and stenting of the LAD and stenting of the PLV branch of the right coronary artery. #3 hypertension, accelerated #4 hyperlipidemia #5 hypothyroidism, TSH normal #6 prior TIA plan from cardiology's perspective, patient may be able to be discharged home today. We'll make her a follow-up appointment to see Dr. Acevedo in the office post discharge. She will continue Brilinta along with baby aspirin for 4-6 weeks at which time she will change management administrator to Xarelto 15 mg daily and Plavix.we will also continue losartan 100 mg daily, metoprolol 25 mg one tablet by mouth twice a day ,we will also start the patient on Lipitor 80 mg PO daily. DNP note has been reviewed, I agree with a documented findings and plan of care. Patient was seen and examined.
[2018-09-20 12:44] VITALS: BP 146/68; PULSE 77; TEMP 97.6
--- NOTE | 2018-09-20 13:48 | P.DS ---
Providers Date of admission: 09/17/18 00:27 Expected date of discharge: 09/20/18 Attending physician: Orestes Morrison Consults: 09/17/18 00:27 Consult Physician Urgent Consulting Provider: Magdy Aaron Consult Reason/Comments: new afib, chest pain Do you want consulting provider notified?: Yes, Notify in am 09/18/18 11:38 Consult Physician Routine Consulting Provider: Magdy Aaron Consult Reason/Comments: Post Interventional patient Do you want consulting provider notified?: Already Contacted 09/19/18 11:08 Consult Physician Routine Consulting Provider: Luis Yeh Consult Reason/Comments: shortness of breath Do you want consulting provider notified?: Yes Primary care physician: Vanessa Michel [facility] Course: Discharge diagnosis 1. Chest pain with acute coronary syndrome and acute non-ST elevated FL present on admission: Patient status post heart catheterization with 2 stents one to the PLV branch of the RCA and the LAD. She had mildly elevated troponin. 2-D echo completed showing EF between 50-55% 2. New onset atrial fibrillation. Has converted to normal sinus rhythm. 3. History of CVA/TIA in 2008. Patient states she has trouble finding her words since having a stroke 4. Diabetes mellitus insulin-dependent. Blood sugars are uncontrolled. A1c is 10.6. We'll restart his lispro 6 mg twice a day before meals. Change in diet to a diabetic diet. Consult inclusion special educator. Continue Lantus and sliding scale coverage 5. Essential hypertension with elevated blood pressures. Medication adjustments per cardiology 6. History of osteoarthritis 10. Sleep apnea. Patient wears CPAP at home 11. Hypothyroidism. Synthroid resumed 12. Anxiety and depression. Home dose of Lyrica resumed 13. Increased shortness of breath. Did show some improvement with IV Lasix. Off of oxygen. Patient seen evaluated by pulmonary service. They'll follow up with her outpatient for sleep study for possible sleep apnea 14. Increased left shoulder pain. Patient reports that she fell back in December and injured her left shoulder. Patient states shoulder pain has significantly improved with the last 48 hours. X-ray of shoulder was negative for any fracture or dislocation. 15. Mildly elevated AST at 61. Patient was started on Lipitor during this admission. Recommend following up on LFTs in 1 week Hospital course This is a 68-year-old female patient of Dr. Michel. Patient presented to the emergency room with complaints of chest pain and the feeling of rapid heart rate that has been occurring intermittently for the past 2 weeks. Patient states last night her chest pain significantly increases. Patient has known past medical history of CVA/TIA in 2008, diabetes mellitus, I disorder, essential hypertension, osteoporosis, sleep apnea, thyroid disorder and anxiety and bipolar. EKG completed in ER showing atrial fibrillation with rapid ventricular response heart rate in the 140s. Patient started on Cardizem and heparin drip. Cardiology service consulted. Initial troponin negative. Second troponin elevated at 0.043 discussed case with cardiology services. Planning heart catheterization later today. 2-D echo has been ordered. At this time patient complains of mild chest discomfort. Patient denies shortness of breath. Patient denies nausea vomiting or diarrhea. Patient denies any urinary burning or frequency On 09/18/2018 status post cardiac catheterization. Patient received a stent to the PLV branch of the RCA proximal left anterior descending artery. At this time patient is resting in bed. Patient is complaining of increased shortness of breath. Pulse ox 96 on 2 L nasal cannula. Patient does have some extremely wheezing and diminished breath sounds. Will order chest x-ray at this time. Patient also complaining of left shoulder pain. Patient states she fell back in December and has had issues with pain in that left shoulder. Patient requesting x-ray of that left shoulder to further assess. This time patient denies chest pain. Patient denies nausea vomiting or diarrhea. Patient denies any urinary burning or frequency. 09/19/2018 patient worsening shortness of breath yesterday did receive 1 dose of IV Lasix 20 mg. Chest x-ray showing elevated right hemidiaphragm with some segmental right perihepatic and suprahilar atelectasis or infiltrate. Mild central interstitial prominence may be on the basis of chronic interstitial lung disease rather than venous congestion. Patient reports improvement in her shortness of breath. However she still feels better with the oxygen on. Pulmonary service will be consulted. Patient has converted from atrial fibrillation to normal sinus rhythm. Blood sugars have been elevated in the 200s to 300s. Restarted her NovoLog 6 units twice a day before meals. She's had elevated blood pressures during this admission cardiology is following. A1c 10.6. Shoulder x-ray negative. 09/20/2018 patient is medically stable for discharge. She's been cleared by cardiology and pulmonary services. During this admission she had an acute coronary syndrome with a non-ST elevated FL underwent heart catheterization with 2 stents. At this time cardiology is recommending patient states on Brilinta and aspirin for 4 weeks and then be switched over to Xarelto 15 mg daily plus Plavix by cardiology. Lipitor was also added during this admission. Patient's chest pain has resolved. She is medically stable for discharge. Please refer to chart for any further details. Pulmonary services recommending that patient follows up outpatient for sleep study to further evaluate obstructive sleep apnea. She is been educated not to use her 's CPAP machine that she needs to be evaluated and officially diagnosed with obstructive sleep apnea and to have her own settings for CPAP if required. I performed an examination of the patient and discussed their management with the physician Shopper. I have reviewed the Physician Shopper's notes and agree with the documented findings and plan of care Patient Condition at Discharge: Stable Plan - Discharge Summary Discharge Rx Participant: No New Discharge Prescriptions: New Lisinopril [Zestril] 10 mg PO DAILY #30 tab Nitroglycerin Sl Tabs [Nitrostat] 0.4 mg SUBLINGUAL Q5M PRN #25 tab PRN Reason: Chest Pain Ticagrelor [Brilinta] 90 mg PO BID #60 tab Atorvastatin [Lipitor] 80 mg PO HS #30 tab Continue Multivitamin with Iron [Daily Multivitamin with Iron] 1 tab PO DAILY Insulin Glargine [Lantus] 60 unit SQ HS Cholecalciferol [Vitamin D3] 5,000 unit PO DAILY Ginkgo Biloba [place] Extract [Ginkgo] 60 mg PO DAILY Vitamin B Complex 1 cap PO DAILY Aspirin 243 mg PO DAILY Pregabalin [Lyrica] 75 mg PO BID Metoprolol Tartrate [Lopressor] 25 mg PO BID Levothyroxine Sodium [Synthroid] 50 mcg PO QAM acetaZOLAMIDE [Diamox] 250 mg PO Q48H Calcium Carbonate [Calcium] 300 mg PO HS Ginseng 100 mg PO DAILY Losartan Potassium 100 mg PO DAILY Insulin Lispro [humaLOG Kwikpen] See Protocol SQ AC-BID Insulin Lispro [humaLOG Kwikpen] 6 unit SQ AC-BID Discontinued Naproxen Sodium [Aleve] 220 mg PO DAILY PRN PRN Reason: Pain Lisinopril [Zestril] 2.5 mg PO DAILY Discharge Medication List Insulin Glargine [Lantus] 60 unit SQ HS 04/26/15 [History] Multivitamin with Iron [Daily Multivitamin with Iron] 1 tab PO DAILY 04/26/15 [ History] Cholecalciferol [Vitamin D3] 5,000 unit PO DAILY 08/28/16 [History] Ginkgo Biloba [place] Extract [Ginkgo] 60 mg PO DAILY 08/28/16 [History] Vitamin B Complex 1 cap PO DAILY 08/28/16 [History] Aspirin 243 mg PO DAILY 04/25/17 [History] Pregabalin [Lyrica] 75 mg PO BID 04/25/17 [History] Levothyroxine Sodium [Synthroid] 50 mcg PO QAM 08/21/17 [History] Metoprolol Tartrate [Lopressor] 25 mg PO BID 08/21/17 [History] Calcium Carbonate [Calcium] 300 mg PO HS 09/16/18 [History] Ginseng 100 mg PO DAILY 09/16/18 [History] Insulin Lispro [humaLOG Kwikpen] 6 unit SQ AC-BID 09/16/18 [History] Insulin Lispro [humaLOG Kwikpen] See Protocol SQ AC-BID 09/16/18 [History] Losartan Potassium 100 mg PO DAILY 09/16/18 [History] acetaZOLAMIDE [Diamox] 250 mg PO Q48H 09/16/18 [History] Atorvastatin [Lipitor] 80 mg PO HS #30 tab 09/20/18 [Rx] Lisinopril [Zestril] 10 mg PO DAILY #30 tab 09/20/18 [Rx] Nitroglycerin Sl Tabs [Nitrostat] 0.4 mg SUBLINGUAL Q5M PRN #25 tab 09/20/18 [Rx ] Ticagrelor [Brilinta] 90 mg PO BID #60 tab 09/20/18 [Rx] Follow up Appointment(s)/Referral(s): [facility], [NON-STAFF] - Kylee Figueroa MD [STAFF PHYSICIAN] - 09/23/18 11:15 am (Sunday) Joshua Acevedo MD [STAFF PHYSICIAN] - 09/26/18 2:45 pm () Luis Yeh MD [STAFF PHYSICIAN] - 1 Week Patient Instructions/Handouts: *Surgery [facility] - After Heart Catheterization - Field Operations Supervisor Instructions, Left Heart Catheterization (DC) Activity/Diet/Wound Care/Special Instructions: pts 30 day copay for Brillinta is $59. Free 30 day coupon applied Diet: diabetic, cardiac Activity: as tolerated Discharge Disposition: HOME WITH HOME HEALTH SERVICES
[2018-09-20] MEDS ORDERED: ATORVASTATIN 80 MG TAB PO SCH (21:00)
== END 2018-09-20 15:50 | disposition home health service (06) | DRG 247 ==
LOC: EC 22:15 → 3SCARD 09-17 00:27
PROVIDERS: ADMIT Internal Medicine; ATTEND Internal Medicine
PROC: 027135Z Dilation of Coronary Artery, Two Arteries with Two Drug-eluting Intraluminal Devices, Percutaneous Approach (ICD-10-PCS; principal; 2018-09-18 10:30)
PROC: 4A023N7 Measurement of Cardiac Sampling and Pressure, Left Heart, Percutaneous Approach (ICD-10-PCS; 2018-09-18 10:30)
PROC: B2111ZZ Fluoroscopy of Multiple Coronary Arteries using Low Osmolar Contrast (ICD-10-PCS; 2018-09-18 10:30)
DX: I21.4 Non-ST elevation (NSTEMI) myocardial infarction (principal); J98.11 Atelectasis; G47.00 Insomnia, unspecified; G89.29 Other chronic pain; I11.9 Hypertensive heart disease without heart failure; I25.10 Atherosclerotic heart disease of native coronary artery without angina pectoris; I48.0 Paroxysmal atrial fibrillation; I69.328 Other speech and language deficits following cerebral infarction; K21.9 Gastro-esophageal reflux disease without esophagitis; M19.90 Unspecified osteoarthritis, unspecified site; M48.061 Spinal stenosis, lumbar region without neurogenic claudication; M81.0 Age-related osteoporosis without current pathological fracture; Z79.4 Long term (current) use of insulin; Z79.82 Long term (current) use of aspirin; Z79.899 Other long term (current) drug therapy; Z80.1 Family history of malignant neoplasm of trachea, bronchus and lung; Z80.7 Family history of other malignant neoplasms of lymphoid, hematopoietic and related tissues; F41.9 Anxiety disorder, unspecified; E03.9 Hypothyroidism, unspecified; Z79.890 Hormone replacement therapy; E11.42 Type 2 diabetes mellitus with diabetic polyneuropathy; E11.65 Type 2 diabetes mellitus with hyperglycemia; E78.5 Hyperlipidemia, unspecified; F31.9 Bipolar disorder, unspecified; Z80.8 Family history of malignant neoplasm of other organs or systems; Z82.49 Family history of ischemic heart disease and other diseases of the circulatory system; Z82.69 Family history of other diseases of the musculoskeletal system and connective tissue; Z90.710 Acquired absence of both cervix and uterus; Z98.42 Cataract extraction status, left eye; Z98.41 Cataract extraction status, right eye; Z96.1 Presence of intraocular lens; E04.1 Nontoxic single thyroid nodule; M25.512 Pain in left shoulder; W19.XXXS Unspecified fall, sequela; Z91.81 History of falling; Z87.820 Personal history of traumatic brain injury
CPT/HCPCS: 36415; 71045; 71046; 80053; 80061; 82550; 82553; 83036; 83735; 83880; 84443; 84484; 85025; 85610; 85730; 93005; 93306; 93458; 94640; 94760; 96361; 96365; 96366; 96376; 99285; C1874

== ENCOUNTER → 2019-04-18 | Outpatient (CLI) | payer MEDICARE ==
--- NOTE | 2019-04-22 12:10 | MM ---
Reason for exam: screening (asymptomatic). Last mammogram was performed 1 year and 11 months ago. History: Patient is postmenopausal. 2 excisional biopsies of the left breast. Excisional biopsy of the right breast. Took estrogen for 2 years beginning at age 48. Physical Findings: A clinical breast exam by your physician is recommended on an annual basis and results should be correlated with mammographic findings. MG 3D Screening Mammo W/Cad Bilateral CC and MLO view(s) were taken. CV view(s) were taken of the left breast. Prior study comparison: May 15, 2017, bilateral MG 3d diag mammo w/cad [facility]. October 18, 2015, bilateral MG 3d screening mammo w/cad. There are scattered fibroglandular densities. Benign appearing bilateral calcifications. No suspicious abnormality. No significant changes when compared with prior studies. ASSESSMENT: Benign, BI-RAD 2 RECOMMENDATION: Routine screening mammogram of both breasts in 1 year.
== END ==
LOC: RADMAMWWP 12:45
PROVIDERS: ATTEND Family Medicine
DX: Z12.31 Encounter for screening mammogram for malignant neoplasm of breast (principal)
CPT/HCPCS: 77063; 77067

== ENCOUNTER 2019-05-21 11:44 | Day surgery (SDC) | payer MEDICARE ==
[2019-05-21 12:27] LABS: Glucose,Whole Blood 281 mg/dL (75-99)
[2019-05-21 12:30] VITALS: TEMP 98.1
[2019-05-21 13:47] VITALS: BP 160/59; PULSE 70; RESP 16
--- NOTE | 2019-05-21 16:04 | US ---
EXAMINATION TYPE: US FNA thyroid first lesion DATE OF EXAM: 05/21/2019 COMPARISON: NONE HISTORY: Thyroid nodule right lower lobe thyroid. Maximal barrier technique was utilized. After informed consent, skin overlying the lesion was locali zed with ultrasound and the overlying skin prepped and draped. Ultrasound was utilized using sterile technique. Lidocaine was used for local anesthesia. Five passes with a 25-gauge needle were made int o the nodule and aspirated specimen was submitted to cytology. Following the procedure hemostasis ac hieved. No immediate complication. The patient discharged in stable condition. IMPRESSION: STATUS POST ULTRASOUND GUIDED FINE NEEDLE ASPIRATION OF THYROID NODULE, PATHOLOGY IS PEND ING. THIS PROCEDURE WAS PERFORMED BY THE UNDERSIGNED.
== END 2019-05-21 13:40 | disposition home or self-care (01) ==
LOC: RADPROMAIN 11:44
PROVIDERS: ATTEND Family Medicine
DX: E04.1 Nontoxic single thyroid nodule (principal)
CPT/HCPCS: 10005; 88173; 88305

== ENCOUNTER 2019-12-09 18:26 | Emergency (ER) | payer MEDICARE ==
[2019-12-09 18:31] VITALS: BP 198/82; PULSE 80; RESP 18; TEMP 97.6
[2019-12-09 18:52] LABS: Glucose,Whole Blood 452 mg/dL (75-99)
[2019-12-09] MEDS ORDERED: INSULIN ASPART (NovoLOG) 100 UNIT/ML VIAL SQ ONE (18:58)
--- NOTE | 2019-12-09 19:25 | ED ---
Wound/Laceration HPI - General Chief Complaint: Wound/Laceration Stated Complaint: Toe injury Time Seen by Provider: 12/09/19 18:33 Source: patient Mode of arrival: wheelchair Limitations: no limitations - History of Present Illness Initial Comments: Patient is a 69-year-old female, with past medical history of diabetes, presenting to emergency Department with complaints of a burn to her right great toe. Patient states 4 days ago patient she spilled some boiling water onto her right great toe. Patient states she developed a blister the next few days and then she popped the blister peeling off the overlying skin. Patient states she went to her PCP today, Dr. Figueroa, who wanted patient to go to the ER for concerns of cellulitis and secondary to her uncontrolled diabetes. Patient does take insulin for her diabetes but admits to not controlling her diet and not regulating her blood glucose as she should. Patient states she has neuropathy in her feet so there is minimal pain at this time. Patient denies fever, chills, nausea, vomiting. She has no other complaints at this time. Upon arrival to the ER, patient's BP is 190/82, rest of vital signs are as normal. - Related Data Home Medications Medication Instructions Recorded Confirmed Insulin Glargine [Lantus] 60 unit SQ HS 04/26/15 05/21/19 Multivitamin with Iron [Daily 1 tab PO DAILY 04/26/15 05/21/19 Multivitamin with Iron] Cholecalciferol [Vitamin D3 (25 5,000 unit PO DAILY 08/28/16 05/21/19 Mcg = 1000 Iu)] Ginkgo Biloba [place] Extract [Ginkgo] 60 mg PO DAILY 08/28/16 05/21/19 Vitamin B Complex 1 cap PO DAILY 08/28/16 05/21/19 Levothyroxine Sodium [Synthroid] 50 mcg PO QAM 08/21/17 05/21/19 Metoprolol Tartrate [Lopressor] 25 mg PO BID 08/21/17 05/21/19 Calcium Carbonate [Calcium] 300 mg PO HS 09/16/18 05/21/19 Ginseng 100 mg PO DAILY 09/16/18 05/21/19 Insulin Lispro [humaLOG Kwikpen] 6 unit SQ AC-BID 09/16/18 05/21/19 Insulin Lispro [humaLOG Kwikpen] See Protocol SQ AC-BID 09/16/18 05/21/19 Losartan Potassium 100 mg PO DAILY 09/16/18 05/21/19 acetaZOLAMIDE [Diamox] 250 mg PO Q48H 09/16/18 05/21/19 Niacin 500 mg PO HS 04/30/19 05/21/19 Sertraline [Zoloft] 25 mg PO DAILY 04/30/19 05/21/19 Clopidogrel [Plavix] 75 mg PO DAILY 05/21/19 05/21/19 Previous Rx's Medication Instructions Recorded Aspirin 81 mg PO DAILY #30 chewable 09/20/18 Lisinopril [Zestril] 10 mg PO DAILY #30 tab 09/20/18 Nitroglycerin Sl Tabs [Nitrostat] 0.4 mg SUBLINGUAL Q5M PRN #25 tab 09/20/18 Cephalexin [Keflex] 500 mg PO Q6HR 10 Days #40 cap 12/09/19 SILVER sulfADIAZINE Cream 1 applic TOPICAL BID 7 Days #1 can 12/09/19 [Silvadene 1% Cream] Allergies Allergy/AdvReac Type Severity Reaction Status Date / Time adhesive tape Allergy blisters Verified 12/09/19 18:32 Iodinated Contrast Media Allergy Swelling, Verified 12/09/19 18:32 [Iodinated Contrast Media - SHORTNESS IV Dye] OF BREATH latex Allergy Rash/Hives Verified 12/09/19 18:32 talc Allergy Rash/Hives Verified 12/09/19 18:32 amlodipine AdvReac ankle Verified 12/09/19 18:32 swelling hydralazine AdvReac Diarrhea Verified 12/09/19 18:32 metal Allergy Rash/Hives Uncoded 12/09/19 18:32 Review of Systems ROS Statement: Those systems with pertinent positive or pertinent negative responses have been documented in the HPI. ROS Other: All systems not noted in ROS Statement are negative. 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 History of Any Multi-Drug Resistant Organisms: None Reported Past Surgical History: Breast Surgery, Hysterectomy, Orthopedic Surgery, Tubal Ligation Additional Past Surgical History / Comment(s): thyroid biopsies, rt knee arthroscopic surgery, bilateral feet hammer toe repairs, D&C, bilateral CATARACT SURGERY with lens implants, colonoscopies, bilateral breast lumpectomies-benign, tilt table test. Past Anesthesia/Blood Transfusion Reactions: Motion Sickness Additional Past Anesthesia/Blood Transfusion Reaction / Comment(s): LOW BLOOD PRESSURE WITH SURGERY. STATES PROBLEMS WITH MEMORY WITH ANESTHESIA ".No prior blood transfusions Past Psychological History: Anxiety, Bipolar, Depression Smoking Status: Never smoker Past Alcohol Use History: None Reported Past Drug Use History: None Reported - Past Family History Father Family Medical History: Cancer Additional Family Medical History / Comment(s): Father had lymphoma. He had LUNG, BONE, THROAT AND MOUTH CANCER Brother(s) Family Medical History: Myocardial Infarction ([place]) Additional Family Medical History / Comment(s): Muscle Disease, Rheumatic fever at 2 years old Mother Family Medical History: Cancer Additional Family Medical History / Comment(s): lung cancer- mother. She at the age of 79yrs from esophageal valencia after radiation-unable to eat. Patient states "mother had aneurysm". General Exam - General Exam Comments Initial Comments: GENERAL: Well-appearing, well-nourished and in no acute distress. HEAD: Atraumatic, normocephalic. EYES: Pupils equal round and reactive to light, extraocular movements intact, sclera anicteric, conjunctiva are normal. ENT: TMs normal, nares patent, oropharynx clear without exudates. Moist mucous membranes. NECK: Normal range of motion, supple without lymphadenopathy or JVD. LUNGS: Breath sounds clear to auscultation bilaterally and equal. No wheezes rales or rhonchi. HEART: Regular rate and rhythm without murmurs, rubs or gallops. ABDOMEN: Soft, nontender, normoactive bowel sounds. No guarding, no rebound. No masses appreciated. : Deferred EXTREMITIES: Normal range of motion of lower extremities bilateral, no pitting or edema. No clubbing or cyanosis. Neurovascular intact. NEUROLOGICAL: Normal speech, normal gait. PSYCH: Normal mood, normal affect. SKIN: Warm, Dry, normal turgor. Patient has a second-degree burn on the medial aspect of her right great toe. The overlying blister has been peeled off leaving an open wound approximately 2 cm in diameter. There is some mild surrounding cellulitis of the great toe. Patient is neurovascular intact. Limitations: no limitations Course Vital Signs 12/09/19 18:28 Temperature 97.6 F Pulse Rate 80 Respiratory 18 Rate Blood Pressure 198/82 O2 Sat by Pulse 100 Oximetry Medical Decision Making - Medical Decision Making Patient is a 69-year-old female presenting with a second-degree burn of her right great toe 4 days. Patient does have uncontrolled diabetes. Patient was sent in by her PCP. Patient's blood sugar is 452 today. X-rays reveal no acute abnormalities of the right foot, no sign of osteomyelitis. She was given 10 units of insulin. She admits that she does not control her diet in regards to her diabetes and is not willing to. She is stable for discharge at this time. She will be placed on Keflex for cellulitis and given Silvadene cream for her burn. She will follow-up with her PCP in 1-3 days. She is in agreement with this plan of care. Return parameters were discussed with the patient she verbalized understanding. Case discussed with Dr. Herrera who did see the patient and agrees with this plan of care. - Lab Data Lab Results 12/09/19 Range/Units 18:50 POC Glucose (mg/dL) 452 H (75-99) mg/dL POC Glu Finish Mixer ID Nanci Mercado Disposition Clinical Impression: Second degree burn of great toe of right foot, Cellulitis of right toe Disposition: HOME SELF-CARE Condition: Stable Instructions (If sedation given, give patient instructions): Cellulitis (ED) Additional Instructions: Please return to the Emergency Department if symptoms worsen or any other concerns. Keep wound clean. Apply the Silvadene cream twice a day. Take antibiotics as prescribed. Follow-up with PCP. Prescriptions: Cephalexin [Keflex] 500 mg PO Q6HR 10 Days #40 cap SILVER sulfADIAZINE Cream [Silvadene 1% Cream] 1 applic TOPICAL BID 7 Days #1 can Is patient prescribed a controlled substance at d/c from ED?: No Referrals: Kylee Figueroa MD [Primary Care Provider] - 1-2 days
--- NOTE | 2019-12-09 19:34 | XR ---
EXAMINATION TYPE: XR foot limited RT DATE OF EXAM: 12/09/2019 COMPARISON: NONE HISTORY: Wound. TECHNIQUE: 2 views FINDINGS: There is a plantar calcaneal spurring. There is mild soft tissue swelling. Metatarsals appe ar intact. There is apparent old osteotomy of the head of the proximal phalanx of the fourth toe and fifth toe. I see no focal bone destruction. IMPRESSION: No acute abnormality of the right foot. No sign of osteomyelitis.
== END 2019-12-09 20:00 | disposition home or self-care (01) ==
LOC: EC 18:26
DX: T25.231A Burn of second degree of right toe(s) (nail), initial encounter (principal); L03.031 Cellulitis of right toe; I25.10 Atherosclerotic heart disease of native coronary artery without angina pectoris; E11.42 Type 2 diabetes mellitus with diabetic polyneuropathy; E11.65 Type 2 diabetes mellitus with hyperglycemia; I10 Essential (primary) hypertension; E04.2 Nontoxic multinodular goiter; F31.9 Bipolar disorder, unspecified; F41.9 Anxiety disorder, unspecified; Z79.02 Long term (current) use of antithrombotics/antiplatelets; Z79.4 Long term (current) use of insulin; Z79.890 Hormone replacement therapy; Z79.899 Other long term (current) drug therapy; Z88.8 Allergy status to other drugs, medicaments and biological substances; Z91.040 Latex allergy status; Z91.041 Radiographic dye allergy status; Z91.048 Other nonmedicinal substance allergy status; Z86.73 Personal history of transient ischemic attack (TIA), and cerebral infarction without residual deficits; Z98.890 Other specified postprocedural states; X12.XXXA Contact with other hot fluids, initial encounter
CPT/HCPCS: 36415; 99283

== ENCOUNTER 2020-02-11 15:57 | Emergency (ER) | payer MEDICARE ==
[2020-02-11] MEDS ORDERED: SODIUM CHLORIDE 0.9% 1,000 ML IV STA (16:22)
[2020-02-11 16:46] LABS: Basophils % (A) 1 %; Eosinophils # (A) 0.3 k/uL (0-0.7); Eosinophils % (A) 4 %; HCT 39.4 % (34.0-46.0); HGB 12.8 gm/dL (11.4-16.0); Lymphocytes % (A) 21 %; MCH 26.7 pg (25.0-35.0); MCHC 32.5 g/dL (31.0-37.0); MCV 82.2 fL (80.0-100.0); Monocytes # (A) 0.4 k/uL (0-1.0); Monocytes % (A) 4 %; Neutrophils # (A) 6.4 k/uL (1.3-7.7); Neutrophils % (A) 69 %; Platelet Count 266 k/uL (150-450); RDW 14.3 % (11.5-15.5); WBC 9.4 k/uL (3.8-10.6)
[2020-02-11 16:55] LABS: Albumin 3.8 g/dL (3.5-5.0); Calcium 10.3 mg/dL (8.4-10.2); Magnesium 1.8 mg/dL (1.6-2.3); Phosphorus 3.3 mg/dL (2.5-4.5); Potassium 4.8 mmol/L (3.5-5.1); Total Bilirubin 0.5 mg/dL (0.2-1.3); Total Protein 6.5 g/dL (6.3-8.2)
[2020-02-11 17:10] LABS: INR 0.9 (<1.2); Prothrombin Time 9.6 sec (9.0-12.0)
[2020-02-11 17:18] LABS: Partial Thromboplastin Time 20.8 sec (22.0-30.0)
[2020-02-11] MEDS ORDERED: ENALAPRILAT 1.25 MG/ML 1 ML VIAL IVP STA (17:33)
--- NOTE | 2020-02-11 17:39 | ED ---
Recheck HPI - General Chief Complaint: Recheck/Abnormal Lab/Rx Stated Complaint: High BP Time Seen by Provider: 02/11/20 16:12 Source: patient, RN notes reviewed, old records reviewed Mode of arrival: ambulatory Limitations: no limitations - History of Present Illness Initial Comments: This is a 70-year-old female DF for evaluation patient from outpatient clinic for evaluation regarding elevated blood pressure. Patient's blood pressure not elevated her last 2 visits to the wound care clinic. Patient's wounds are healing she has no complaints no recent travel history no sick contacts. Patient has no fevers. No complaints no nausea vomiting or diarrhea no recent medication changes. Patient has a blood pressure for medication for quite some time and is usually runs pretty high but today was more than normal. Patient isn't metastatic chest pain shows of breath MD Complaint: other (Abnormal blood pressure) -: week(s) Returns Today for: Called Because of Abnormal Lab/Test (Sent to ER for evaluation of abnormal blood pressure) Symptoms Since Prior Visit: no new symptoms Associated Symptoms: none - Related Data Home Medications Medication Instructions Recorded Confirmed Insulin Glargine [Lantus] 60 unit SQ HS 04/26/15 05/21/19 Multivitamin with Iron [Daily 1 tab PO DAILY 04/26/15 05/21/19 Multivitamin with Iron] Cholecalciferol [Vitamin D3 (25 5,000 unit PO DAILY 08/28/16 05/21/19 Mcg = 1000 Iu)] Ginkgo Biloba [place] Extract [Ginkgo] 60 mg PO DAILY 08/28/16 05/21/19 Vitamin B Complex 1 cap PO DAILY 08/28/16 05/21/19 Levothyroxine Sodium [Synthroid] 50 mcg PO QAM 08/21/17 05/21/19 Metoprolol Tartrate [Lopressor] 25 mg PO BID 08/21/17 05/21/19 Calcium Carbonate [Calcium] 300 mg PO HS 09/16/18 05/21/19 Ginseng 100 mg PO DAILY 09/16/18 05/21/19 Insulin Lispro [humaLOG Kwikpen] 6 unit SQ AC-BID 09/16/18 05/21/19 Insulin Lispro [humaLOG Kwikpen] See Protocol SQ AC-BID 09/16/18 05/21/19 Losartan Potassium 100 mg PO DAILY 09/16/18 05/21/19 acetaZOLAMIDE [Diamox] 250 mg PO Q48H 09/16/18 05/21/19 Niacin 500 mg PO HS 04/30/19 05/21/19 Sertraline [Zoloft] 25 mg PO DAILY 04/30/19 05/21/19 Clopidogrel [Plavix] 75 mg PO DAILY 05/21/19 05/21/19 Previous Rx's Medication Instructions Recorded Aspirin 81 mg PO DAILY #30 chewable 09/20/18 Lisinopril [Zestril] 10 mg PO DAILY #30 tab 09/20/18 Nitroglycerin Sl Tabs [Nitrostat] 0.4 mg SUBLINGUAL Q5M PRN #25 tab 09/20/18 Cephalexin [Keflex] 500 mg PO Q6HR 10 Days #40 cap 12/09/19 SILVER sulfADIAZINE Cream 1 applic TOPICAL BID 7 Days #1 can 12/09/19 [Silvadene 1% Cream] Allergies Allergy/AdvReac Type Severity Reaction Status Date / Time adhesive tape Allergy blisters Verified 02/11/20 16:08 Iodinated Contrast Media Allergy Swelling, Verified 02/11/20 16:08 [Iodinated Contrast Media - SHORTNESS IV Dye] OF BREATH latex Allergy Rash/Hives Verified 02/11/20 16:08 talc Allergy Rash/Hives Verified 02/11/20 16:08 amlodipine AdvReac ankle Verified 02/11/20 16:08 swelling hydralazine AdvReac Diarrhea Verified 02/11/20 16:08 metal Allergy Rash/Hives Uncoded 12/09/19 18:32 Review of Systems ROS Statement: Those systems with pertinent positive or pertinent negative responses have been documented in the HPI. ROS Other: All systems not noted in ROS Statement are negative. 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 History of Any Multi-Drug Resistant Organisms: None Reported Past Surgical History: Breast Surgery, Hysterectomy, Orthopedic Surgery, Tubal Ligation Additional Past Surgical History / Comment(s): thyroid biopsies, rt knee arthroscopic surgery, bilateral feet hammer toe repairs, D&C, bilateral CATARACT SURGERY with lens implants, colonoscopies, bilateral breast lumpectomies-benign, tilt table test. Past Anesthesia/Blood Transfusion Reactions: Motion Sickness Additional Past Anesthesia/Blood Transfusion Reaction / Comment(s): LOW BLOOD PRESSURE WITH SURGERY. STATES PROBLEMS WITH MEMORY WITH ANESTHESIA ".No prior blood transfusions Past Psychological History: Anxiety, Bipolar, Depression Smoking Status: Never smoker Past Alcohol Use History: None Reported Past Drug Use History: None Reported - Past Family History Father Family Medical History: Cancer Additional Family Medical History / Comment(s): Father had lymphoma. He had LUNG, BONE, THROAT AND MOUTH CANCER Brother(s) Family Medical History: Myocardial Infarction ([place]) Additional Family Medical History / Comment(s): Muscle Disease, Rheumatic fever at 2 years old Mother Family Medical History: Cancer Additional Family Medical History / Comment(s): lung cancer- mother. She at the age of 79yrs from esophageal valencia after radiation-unable to eat. Patient states "mother had aneurysm". General Exam Limitations: no limitations General appearance: alert, in no apparent distress Head exam: Present: atraumatic, normocephalic, normal inspection Eye exam: Present: normal appearance, PERRL, EOMI. Absent: scleral icterus, conjunctival injection, periorbital swelling ENT exam: Present: normal exam, mucous membranes moist Neck exam: Present: normal inspection. Absent: tenderness, meningismus, lymphadenopathy Respiratory exam: Present: normal lung sounds bilaterally. Absent: respiratory distress, wheezes, rales, rhonchi, stridor Cardiovascular Exam: Present: regular rate, normal rhythm, normal heart sounds. Absent: systolic murmur, diastolic murmur, rubs, gallop, clicks GI/Abdominal exam: Present: soft, normal bowel sounds. Absent: distended, tenderness, guarding, rebound, rigid Extremities exam: Present: normal inspection, full ROM, normal capillary refill. Absent: tenderness, pedal edema, joint swelling, calf tenderness Back exam: Present: normal inspection Neurological exam: Present: alert, oriented X3, CN II-XII intact Psychiatric exam: Present: normal affect, normal mood Skin exam: Present: warm, dry, intact, normal color. Absent: rash Course Vital Signs 02/11/20 02/11/20 02/11/20 16:08 16:54 17:55 Temperature 98 F Pulse Rate 56 L 55 L 68 Respiratory 18 17 18 Rate Blood Pressure 176/81 192/69 171/87 O2 Sat by Pulse 99 100 98 Oximetry - Reevaluation(s) Reevaluation #1: 02/11/20 18:17 Medical record is reviewed Reevaluation #2: 02/11/20 18:17 Pressure improved labwork is normal explained results the patient Reevaluation #3: 02/11/20 18:17 Patient told to increase metoprolol from 25-50 twice a day she is agreeable Medical Decision Making - Medical Decision Making 70 female DF for evaluation elevated blood pressuresymptoms. Blood pressure improved here in the ER medication changes made and patient can be discharged home - Lab Data Result diagrams: 02/11/20 16:30 02/11/20 16:30 Lab Results 02/11/20 02/11/20 02/11/20 Range/Units 16:30 16:30 16:30 WBC 9.4 (3.8-10.6) k/uL RBC 4.80 (3.80-5.40) m/uL Hgb 12.8 (11.4-16.0) gm/dL Hct 39.4 (34.0-46.0) % MCV 82.2 (80.0-100.0) fL MCH 26.7 (25.0-35.0) pg MCHC 32.5 (31.0-37.0) g/dL RDW 14.3 (11.5-15.5) % Plt Count 266 (150-450) k/uL Neutrophils % 69 % Lymphocytes % 21 % Monocytes % 4 % Eosinophils % 4 % Basophils % 1 % Neutrophils # 6.4 (1.3-7.7) k/uL Lymphocytes # 2.0 (1.0-4.8) k/uL Monocytes # 0.4 (0-1.0) k/uL Eosinophils # 0.3 (0-0.7) k/uL Basophils # 0.0 (0-0.2) k/uL PT 9.6 (9.0-12.0) sec INR 0.9 (<1.2) APTT 20.8 L (22.0-30.0) sec Sodium 137 (137-145) mmol/L Potassium 4.8 (3.5-5.1) mmol/L Chloride 103 (98-107) mmol/L Carbon Dioxide 30 (22-30) mmol/L Anion Gap 4 mmol/L BUN 23 H (7-17) mg/dL Creatinine 0.85 (0.52-1.04) mg/dL Est GFR (CKD-EPI)AfAm 80 (>60 ml/min/1.73 sqM) Est GFR (CKD-EPI)NonAf 69 (>60 ml/min/1.73 sqM) Glucose 209 H (74-99) mg/dL Plasma Lactic Acid Carlos (0.7-2.0) mmol/L Calcium 10.3 H (8.4-10.2) mg/dL Phosphorus 3.3 (2.5-4.5) mg/dL Magnesium 1.8 (1.6-2.3) mg/dL Total Bilirubin 0.5 (0.2-1.3) mg/dL AST 20 (14-36) U/L ALT 15 (4-34) U/L Alkaline Phosphatase 115 (38-126) U/L Troponin I (0.000-0.034) ng/mL Total Protein 6.5 (6.3-8.2) g/dL Albumin 3.8 (3.5-5.0) g/dL 02/11/20 02/11/20 Range/Units 16:30 16:30 WBC (3.8-10.6) k/uL RBC (3.80-5.40) m/uL Hgb (11.4-16.0) gm/dL Hct (34.0-46.0) % MCV (80.0-100.0) fL MCH (25.0-35.0) pg MCHC (31.0-37.0) g/dL RDW (11.5-15.5) % Plt Count (150-450) k/uL Neutrophils % % Lymphocytes % % Monocytes % % Eosinophils % % Basophils % % Neutrophils # (1.3-7.7) k/uL Lymphocytes # (1.0-4.8) k/uL Monocytes # (0-1.0) k/uL Eosinophils # (0-0.7) k/uL Basophils # (0-0.2) k/uL PT (9.0-12.0) sec INR (<1.2) APTT (22.0-30.0) sec Sodium (137-145) mmol/L Potassium (3.5-5.1) mmol/L Chloride (98-107) mmol/L Carbon Dioxide (22-30) mmol/L Anion Gap mmol/L BUN (7-17) mg/dL Creatinine (0.52-1.04) mg/dL Est GFR (CKD-EPI)AfAm (>60 ml/min/1.73 sqM) Est GFR (CKD-EPI)NonAf (>60 ml/min/1.73 sqM) Glucose (74-99) mg/dL Plasma Lactic Acid Carlos 1.3 (0.7-2.0) mmol/L Calcium (8.4-10.2) mg/dL Phosphorus (2.5-4.5) mg/dL Magnesium (1.6-2.3) mg/dL Total Bilirubin (0.2-1.3) mg/dL AST (14-36) U/L ALT (4-34) U/L Alkaline Phosphatase (38-126) U/L Troponin I <0.012 (0.000-0.034) ng/mL Total Protein (6.3-8.2) g/dL Albumin (3.5-5.0) g/dL Disposition Clinical Impression: Hypertension Disposition: HOME SELF-CARE Condition: Good Instructions (If sedation given, give patient instructions): Hypertension (ED) Is patient prescribed a controlled substance at d/c from ED?: No Referrals: Kylee Figueroa MD [Primary Care Provider] - 1-2 days
[2020-02-11 17:56] VITALS: PULSE 68; RESP 18
[2020-02-11 18:19] VITALS: BP 164/76; TEMP 98.2
== END 2020-02-11 18:30 | disposition home or self-care (01) ==
LOC: EC 15:57
DX: I10 Essential (primary) hypertension (principal); E11.9 Type 2 diabetes mellitus without complications; E07.9 Disorder of thyroid, unspecified; F31.9 Bipolar disorder, unspecified; G47.33 Obstructive sleep apnea (adult) (pediatric); F41.9 Anxiety disorder, unspecified; Z88.8 Allergy status to other drugs, medicaments and biological substances; Z91.048 Other nonmedicinal substance allergy status; Z91.041 Radiographic dye allergy status; Z91.040 Latex allergy status; Z79.4 Long term (current) use of insulin; Z79.890 Hormone replacement therapy; Z79.899 Other long term (current) drug therapy; Z86.73 Personal history of transient ischemic attack (TIA), and cerebral infarction without residual deficits; Z98.42 Cataract extraction status, left eye; Z98.41 Cataract extraction status, right eye; Z96.1 Presence of intraocular lens; Z99.89 Dependence on other enabling machines and devices
CPT/HCPCS: 36415; 80053; 83605; 83735; 84100; 84484; 85025; 85610; 85730; 87040; 93005; 96361; 96374; 99284

== ENCOUNTER 2020-04-01 14:29 | Emergency (ER) | payer MEDICARE ==
[2020-04-01 14:39] VITALS: BP 138/72; PULSE 76; RESP 18; TEMP 98.4
--- NOTE | 2020-04-01 15:47 | ED ---
General Adult HPI - General Chief complaint: Extremity Problem,Nontraumatic Stated complaint: L Leg Pain Time Seen by Provider: 04/01/20 14:44 Source: patient, family, RN notes reviewed, old records reviewed Mode of arrival: wheelchair Limitations: no limitations - History of Present Illness Initial comments: 70-year-old female patient presents to ED for evaluation of left leg pain. 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 Patient reports that she has had persistent pain and swelling sentences and also in the anterior aspect. Patient saw her primary care provider for this an reportdly had an x-ray taken which not displaying any acute fracture, however she was sent here for evaluation of possible blood clot. Patient denies any chest pain or shortness breath. Denies any other complaints. Patient is on Plavix. Systemic: Pt denies fatigue, fever/chills, rash. Pt denies weakness, night sweats, weight loss. Neuro: Pt denies headache, visual disturbances, syncope or pre-syncope. HEENT: Pt denies ocular discharge or irritation, otalgia, rhinorrhea, pharyngitis or notable lymphadenopathy. Cardiopulmonary: Pt denies chest pain, SOB, heart palpitations, dyspnea on exertion. Abdominal/GI: Pt denies abdominal pain, n/v/d. : Pt denies dysuria, burning w/ urination, frequency/urgency. Denies new onset urinary or bowel incontinence. MSK: Pt denies myalgia, loss of strength or function in extremities. Neuro: Pt denies new onset weakness, paresthesias. - Related Data Home Medications Medication Instructions Recorded Confirmed Insulin Glargine [Lantus] 60 unit SQ HS 04/26/15 05/21/19 Multivitamin with Iron [Daily 1 tab PO DAILY 04/26/15 05/21/19 Multivitamin with Iron] Cholecalciferol [Vitamin D3 (25 5,000 unit PO DAILY 08/28/16 05/21/19 Mcg = 1000 Iu)] Ginkgo Biloba [place] Extract [Ginkgo] 60 mg PO DAILY 08/28/16 05/21/19 Vitamin B Complex 1 cap PO DAILY 08/28/16 05/21/19 Levothyroxine Sodium [Synthroid] 50 mcg PO QAM 08/21/17 05/21/19 Metoprolol Tartrate [Lopressor] 25 mg PO BID 08/21/17 05/21/19 Calcium Carbonate [Calcium] 300 mg PO HS 09/16/18 05/21/19 Ginseng 100 mg PO DAILY 09/16/18 05/21/19 Insulin Lispro [humaLOG Kwikpen] 6 unit SQ AC-BID 09/16/18 05/21/19 Insulin Lispro [humaLOG Kwikpen] See Protocol SQ AC-BID 09/16/18 05/21/19 Losartan Potassium 100 mg PO DAILY 09/16/18 05/21/19 acetaZOLAMIDE [Diamox] 250 mg PO Q48H 09/16/18 05/21/19 Niacin 500 mg PO HS 04/30/19 05/21/19 Sertraline [Zoloft] 25 mg PO DAILY 04/30/19 05/21/19 Clopidogrel [Plavix] 75 mg PO DAILY 05/21/19 05/21/19 Previous Rx's Medication Instructions Recorded Aspirin 81 mg PO DAILY #30 chewable 09/20/18 Lisinopril [Zestril] 10 mg PO DAILY #30 tab 09/20/18 Nitroglycerin Sl Tabs [Nitrostat] 0.4 mg SUBLINGUAL Q5M PRN #25 tab 09/20/18 Cephalexin [Keflex] 500 mg PO Q6HR 10 Days #40 cap 12/09/19 SILVER sulfADIAZINE Cream 1 applic TOPICAL BID 7 Days #1 can 12/09/19 [Silvadene 1% Cream] Cephalexin [Keflex] 500 mg PO Q6HR 10 Days #40 cap 04/01/20 Allergies Allergy/AdvReac Type Severity Reaction Status Date / Time adhesive tape Allergy blisters Verified 04/01/20 14:39 Iodinated Contrast Media Allergy Swelling, Verified 04/01/20 14:39 [Iodinated Contrast Media - SHORTNESS IV Dye] OF BREATH latex Allergy Rash/Hives Verified 04/01/20 14:39 talc Allergy Rash/Hives Verified 04/01/20 14:39 amlodipine AdvReac ankle Verified 04/01/20 14:39 swelling hydralazine AdvReac Diarrhea Verified 04/01/20 14:39 metal Allergy Rash/Hives Uncoded 04/01/20 14:39 Review of Systems ROS Statement: Those systems with pertinent positive or pertinent negative responses have been documented in the HPI. ROS Other: All systems not noted in ROS Statement are negative. 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 History of Any Multi-Drug Resistant Organisms: None Reported Past Surgical History: Breast Surgery, Hysterectomy, Orthopedic Surgery, Tubal Ligation Additional Past Surgical History / Comment(s): thyroid biopsies, rt knee arthroscopic surgery, bilateral feet hammer toe repairs, D&C, bilateral CATARACT SURGERY with lens implants, colonoscopies, bilateral breast lumpectomies-benign, tilt table test. Past Anesthesia/Blood Transfusion Reactions: Motion Sickness Additional Past Anesthesia/Blood Transfusion Reaction / Comment(s): LOW BLOOD PRESSURE WITH SURGERY. STATES PROBLEMS WITH MEMORY WITH ANESTHESIA ".No prior blood transfusions Past Psychological History: Anxiety, Bipolar, Depression Smoking Status: Never smoker Past Alcohol Use History: None Reported Past Drug Use History: None Reported - Past Family History Father Family Medical History: Cancer Additional Family Medical History / Comment(s): Father had lymphoma. He had LUNG, BONE, THROAT AND MOUTH CANCER Brother(s) Family Medical History: Myocardial Infarction ([place]) Additional Family Medical History / Comment(s): Muscle Disease, Rheumatic fever at 2 years old Mother Family Medical History: Cancer Additional Family Medical History / Comment(s): lung cancer- mother. She at the age of 79yrs from esophageal valencia after radiation-unable to eat. Patient states "mother had aneurysm". General Exam - General Exam Comments Initial Comments: Constitutional: NAD, AOX3, Pt has pleasant affect. HEENT: NC/AT, trachea midline, neck supple, no lymphadenopathy. Posterior pharynx non erythematous, without exudates. External ears appear normal, without discharge. Mucous membranes moist. Eyes PERRLA, EOM intact. There is no scleral icterus. No pallor noted. Cardiopulmonary: RRR, no murmurs, rubs or gallops, no JVD noted. Lungs CTAB in anterior and posterior stroud. No peripheral edema. Abdominal exam: Abdomen soft and non-distended. Abdomen non-tender to palpation in all 4 quadrants. Bowel sounds active in LLQ. No hepatosplenomegaly. No ecchymosis Neuro: CN II-XII grossly intact. No nuchal rigidity. No raccon eyes, no rendon sign, no hemotympanum. No cervical spinal tenderness. MSK: Mild amount of swelling and localized ecchymoses noted on left anterior aspect of tibia. There is also a mild amount of posterior calf tenderness on the left lower extremity. Homans sign is negative. No Erythema noted. Right lower extremity nontender. Homans sign negative bilaterally. Small amount of erythema noted on dorsum of foot, no echymosis, no crepitus .Posterior tibialis and radial pulse +2 bilaterally. Sensation intact in upper and lower extremities. Full active ROM in upper and lower extremities. Limitations: no limitations Course Vital Signs 04/01/20 14:33 Temperature 98.4 F Pulse Rate 76 Respiratory 18 Rate Blood Pressure 138/72 O2 Sat by Pulse 97 Oximetry Medical Decision Making - Medical Decision Making 70-year-old female patient presents to ED for evaluation of left leg pain. 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 Patient reports that she has had persistent pain and swelling sentences and also in the anterior aspect. Patient saw her primary care provider for this an reportdly had an x-ray taken which not displaying any acute fracture, however she was sent here for evaluation of possible blood clot. Patient denies any chest pain or shortness breath. Denies any other complaints. Patient is on Plavix. Pt VSS, afebrile. Physical exam displayed: Mild amount of swelling and localized ecchymoses noted on left anterior aspect of tibia. There is also a mild amount of posterior calf tenderness on the left lower extremity. Homans sign is negative. No Erythema noted. Right lower extremity nontender. Homans sign negative bilaterally. Small amount of erythema noted on dorsum of foot, no echymosis, no crepitus .Posterior tibialis and radial pulse +2 bilaterally. Sensation intact in upper and lower extremities. Full active ROM in upper and lower extremities. Ultrasound left lower extremity negative for deep venous thrombosis. He does appear to be a component of cellulitis noted on the dorsum of the left foot. Patient be treated with Keflex.. Patient's complaint is contusion. Patient advised to rest this area. Patient is able to bear weight. Patient will discharge with follow-up with primary care provider and will return to ED if condition worsens. Disposition Clinical Impression: Cellulitis, Contusion Disposition: HOME SELF-CARE Condition: Stable Instructions (If sedation given, give patient instructions): Cellulitis (ED) Additional Instructions: Take antibiotics as directed. Follow-up with primary care provider tomorrow. Return to ER if condition worsens in any way. Prescriptions: Cephalexin [Keflex] 500 mg PO Q6HR 10 Days #40 cap Is patient prescribed a controlled substance at d/c from ED?: No Referrals: Kylee Figueroa MD [Primary Care Provider] - 1-2 days
--- NOTE | 2020-04-01 16:27 | US ---
EXAMINATION TYPE: US venous doppler duplex LE LT DATE OF EXAM: 04/01/2020 3:54 PM COMPARISON: NONE CLINICAL HISTORY: pain . SIDE PERFORMED: Left TECHNIQUE: The lower extremity deep venous system is examined utilizing real time linear array sonog patricia with graded compression, doppler sonography and color-flow sonography. VESSELS IMAGED: External Iliac Vein (EIV) Common Femoral Vein Deep Femoral Vein Greater Saphenous Vein * Femoral Vein Popliteal Vein Small Saphenous Vein * Proximal Calf Veins (* superficial vessels) Grayscale, color doppler, spectral doppler imaging performed of the deep left lower extremity. There is normal flow, compressibility, vascular waveforms. Patient of large body habitus. Left Leg: Negative for DVT IMPRESSION: No sonographic evidence of deep venous thrombosis in the left lower extremity.
[2020-04-01] MEDS ORDERED: ACET/COD 300 MG/30 MG STARTER PACK 6 TAB BTL PO STA (17:35)
[2020-04-01] MEDS ORDERED: CEPHALEXIN 500MG STARTER PACK 4 CAP BTL PO STA (17:35)
== END 2020-04-01 17:50 | disposition home or self-care (01) ==
LOC: EC 14:29
DX: L03.116 Cellulitis of left lower limb (principal); S80.12XA Contusion of left lower leg, initial encounter; I25.10 Atherosclerotic heart disease of native coronary artery without angina pectoris; I10 Essential (primary) hypertension; E07.9 Disorder of thyroid, unspecified; G47.33 Obstructive sleep apnea (adult) (pediatric); E11.40 Type 2 diabetes mellitus with diabetic neuropathy, unspecified; F41.9 Anxiety disorder, unspecified; F31.9 Bipolar disorder, unspecified; Z79.890 Hormone replacement therapy; Z79.02 Long term (current) use of antithrombotics/antiplatelets; Z79.4 Long term (current) use of insulin; Z79.899 Other long term (current) drug therapy; Z91.048 Other nonmedicinal substance allergy status; Z91.041 Radiographic dye allergy status; Z91.040 Latex allergy status; Z88.8 Allergy status to other drugs, medicaments and biological substances; Z86.73 Personal history of transient ischemic attack (TIA), and cerebral infarction without residual deficits; Z99.89 Dependence on other enabling machines and devices
CPT/HCPCS: 99284

== ENCOUNTER 2020-05-05 20:51 | Inpatient (IN) | payer MEDICARE ==
[2020-05-05] MEDS ORDERED: SODIUM CHLORIDE 0.9% 500 ML 500 ML IV STA (21:15)
[2020-05-05] MEDS ORDERED: methylPREDNISolone SOD SUCCI 125 MG/2 ML VIAL IV STA (21:18)
[2020-05-05] MEDS ORDERED: diphenhydrAMINE 50 MG/ML 1 ML VIAL IVP STA (21:18)
[2020-05-05] MEDS ORDERED: FAMOTIDINE 20 MG/2 ML VIAL IV STA (21:18)
--- NOTE | 2020-05-05 21:28 | ED ---
General Adult HPI - General Chief complaint: Neuro Symptoms/Deficit Stated complaint: Poss Stroke Time Seen by Provider: 05/05/20 20:55 Source: patient, family, RN notes reviewed, old records reviewed Mode of arrival: wheelchair Limitations: altered mental status - History of Present Illness Initial comments: This is a 70-year-old female who presents emergency Department complaining of altered mental status and expressive aphasia. Daughter gives most of the history. Patient is unable to give any history at this time. The last time the patient was seen normal was last night about 10 PM. Daughter states when she woke up today at 8 PM the patient was confused and was unable to express herself because she was able to find the correct words. Patient's speech is not slurred however, she was able to count without problem. Patient was having a very difficult time following any simple commands. Patient did not appear to have any facial droop or any weakness in any extremity. Patient was not complaining of any chest pain or abdominal pain however she did complain of a headache. Daughter does not know the patient's medications - Related Data Home Medications Medication Instructions Recorded Confirmed Insulin Glargine [Lantus] 60 unit SQ HS 04/26/15 05/21/19 Multivitamin with Iron [Daily 1 tab PO DAILY 04/26/15 05/21/19 Multivitamin with Iron] Cholecalciferol [Vitamin D3 (25 5,000 unit PO DAILY 08/28/16 05/21/19 Mcg = 1000 Iu)] Ginkgo Biloba [place] Extract [Ginkgo] 60 mg PO DAILY 08/28/16 05/21/19 Vitamin B Complex 1 cap PO DAILY 08/28/16 05/21/19 Levothyroxine Sodium [Synthroid] 50 mcg PO QAM 08/21/17 05/21/19 Metoprolol Tartrate [Lopressor] 25 mg PO BID 08/21/17 05/21/19 Calcium Carbonate [Calcium] 300 mg PO HS 09/16/18 05/21/19 Ginseng 100 mg PO DAILY 09/16/18 05/21/19 Insulin Lispro [humaLOG Kwikpen] 6 unit SQ AC-BID 09/16/18 05/21/19 Insulin Lispro [humaLOG Kwikpen] See Protocol SQ AC-BID 09/16/18 05/21/19 Losartan Potassium 100 mg PO DAILY 09/16/18 05/21/19 acetaZOLAMIDE [Diamox] 250 mg PO Q48H 09/16/18 05/21/19 Niacin 500 mg PO HS 04/30/19 05/21/19 Sertraline [Zoloft] 25 mg PO DAILY 04/30/19 05/21/19 Clopidogrel [Plavix] 75 mg PO DAILY 05/21/19 05/21/19 Previous Rx's Medication Instructions Recorded Aspirin 81 mg PO DAILY #30 chewable 09/20/18 Lisinopril [Zestril] 10 mg PO DAILY #30 tab 09/20/18 Nitroglycerin Sl Tabs [Nitrostat] 0.4 mg SUBLINGUAL Q5M PRN #25 tab 09/20/18 Cephalexin [Keflex] 500 mg PO Q6HR 10 Days #40 cap 12/09/19 SILVER sulfADIAZINE Cream 1 applic TOPICAL BID 7 Days #1 can 12/09/19 [Silvadene 1% Cream] Cephalexin [Keflex] 500 mg PO Q6HR 10 Days #40 cap 04/01/20 Allergies Allergy/AdvReac Type Severity Reaction Status Date / Time adhesive tape Allergy blisters Verified 05/05/20 20:59 Iodinated Contrast Media Allergy Swelling, Verified 05/05/20 20:59 [Iodinated Contrast Media - SHORTNESS IV Dye] OF BREATH latex Allergy Rash/Hives Verified 05/05/20 20:59 talc Allergy Rash/Hives Verified 05/05/20 20:59 amlodipine AdvReac ankle Verified 05/05/20 20:59 swelling hydralazine AdvReac Diarrhea Verified 05/05/20 20:59 metal Allergy Rash/Hives Uncoded 05/05/20 20:59 Review of Systems ROS Statement: Those systems with pertinent positive or pertinent negative responses have been documented in the HPI. ROS Other: All systems not noted in ROS Statement are negative. 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 History of Any Multi-Drug Resistant Organisms: None Reported Past Surgical History: Breast Surgery, Hysterectomy, Orthopedic Surgery, Tubal L igation Additional Past Surgical History / Comment(s): thyroid biopsies, rt knee arthroscopic surgery, bilateral feet hammer toe repairs, D&C, bilateral CATARACT SURGERY with lens implants, colonoscopies, bilateral breast lumpectomies-benign, tilt table test. Past Anesthesia/Blood Transfusion Reactions: Motion Sickness Additional Past Anesthesia/Blood Transfusion Reaction / Comment(s): LOW BLOOD PRESSURE WITH SURGERY. STATES PROBLEMS WITH MEMORY WITH ANESTHESIA ".No prior blood transfusions Past Psychological History: Anxiety, Bipolar, Depression Smoking Status: Never smoker Past Alcohol Use History: None Reported Past Drug Use History: None Reported - Past Family History Father Family Medical History: Cancer Additional Family Medical History / Comment(s): Father had lymphoma. He had LUNG, BONE, THROAT AND MOUTH CANCER Brother(s) Family Medical History: Myocardial Infarction ([place]) Additional Family Medical History / Comment(s): Muscle Disease, Rheumatic fever at 2 years old Mother Family Medical History: Cancer Additional Family Medical History / Comment(s): lung cancer- mother. She at the age of 79yrs from esophageal [place] after radiation-unable to eat. Patient states "mother had aneurysm". General Exam - General Exam Comments Initial Comments: GENERAL: Patient is well-developed and well-nourished. Patient is nontoxic and well-hydrated and is in no acute distress. ENT: Neck is soft and supple. No significant lymphadenopathy is noted. Oropharynx is clear. Moist mucous membranes. Neck has full range of motion without eliciting any pain. EYES: The sclera were anicteric and conjunctiva were pink and moist. Extraocular move ments were intact and pupils were equal round and reactive to light. Eyelids were unremarkable. PULMONARY: Unlabored respirations. Good breath sounds bilaterally. No audible rales rhonchi or wheezing was noted. CARDIOVASCULAR: There is a regular rate and rhythm without any murmurs gallops or rubs. ABDOMEN: Soft and nontender with normal bowel sounds. SKIN: Skin is clear with no lesions or rashes and otherwise unremarkable. NEUROLOGIC: Patient is alert and oriented unable to assess orientation but she does know her name. Cranial nerves II through XII are grossly intact. Motor and sensory are also intact. expressive aphasia but no slurred speech. Symmetrical smile. Patient could not follow commands to cerebellar testing MUSCULOSKELETAL: Normal extremities with adequate strength and full range of motion. LYMPHATICS: No significant lymphadenopathy is noted PSYCHIATRIC: Normal psychiatric evaluation. Limitations: altered mental status Course Vital Signs 05/05/20 05/05/20 05/05/20 20:54 21:15 21:30 Temperature 99.5 F Pulse Rate 89 100 101 H Respiratory 16 20 18 Rate Blood Pressure 189/86 206/101 211/82 O2 Sat by Pulse 96 99 99 Oximetry 05/05/20 05/05/20 21:45 22:00 Temperature Pulse Rate 98 84 Respiratory 18 20 Rate Blood Pressure 159/90 176/66 O2 Sat by Pulse 96 95 Oximetry Medical Decision Making - Medical Decision Making EKG shows normal sinus rhythm at 90 bpm NH interval 290 QRS is 86 QT interval 3:30 QTC is 431 per patient's EKG shows no ST segment elevation or depression or T wave abnormalities are noted. CT of the brain shows no acute normalities. CTA shows no acute abnormalities. I spoke with Dr. Gonzalez agreed to admit the patient admitted the patient wrote admitting orders. - Lab Data Result diagrams: 05/05/20 21:20 05/05/20 21:20 Lab Results 05/05/20 05/05/20 05/05/20 Range/Units 21:20 21:20 21:20 WBC 10.8 H (3.8-10.6) k/uL RBC 5.13 (3.80-5.40) m/uL Hgb 13.2 (11.4-16.0) gm/dL Hct 42.1 (34.0-46.0) % MCV 82.1 (80.0-100.0) fL MCH 25.7 (25.0-35.0) pg MCHC 31.3 (31.0-37.0) g/dL RDW 15.0 (11.5-15.5) % Plt Count 275 (150-450) k/uL Neutrophils % 76 % Lymphocytes % 15 % Monocytes % 5 % Eosinophils % 3 % Basophils % 0 % Neutrophils # 8.2 H (1.3-7.7) k/uL Lymphocytes # 1.7 (1.0-4.8) k/uL Monocytes # 0.5 (0-1.0) k/uL Eosinophils # 0.3 (0-0.7) k/uL Basophils # 0.0 (0-0.2) k/uL PT 9.6 (9.0-12.0) sec INR 0.9 (<1.2) APTT 21.3 L (22.0-30.0) sec Sodium 135 L (137-145) mmol/L Potassium 5.4 H (3.5-5.1) mmol/L Chloride 103 (98-107) mmol/L Carbon Dioxide 25 (22-30) mmol/L Anion Gap 7 mmol/L BUN 22 H (7-17) mg/dL Creatinine 0.77 (0.52-1.04) mg/dL Est GFR (CKD-EPI)AfAm 89 (>60 ml/min/1.73 sqM) Est GFR (CKD-EPI)NonAf 77 (>60 ml/min/1.73 sqM) Glucose 333 H (74-99) mg/dL Plasma Lactic Acid Carlos (0.7-2.0) mmol/L Calcium 10.6 H (8.4-10.2) mg/dL Total Bilirubin 0.7 (0.2-1.3) mg/dL AST 32 (14-36) U/L ALT 22 (4-34) U/L Alkaline Phosphatase 135 H (38-126) U/L Total Protein 6.8 (6.3-8.2) g/dL Albumin 3.8 (3.5-5.0) g/dL 05/05/20 Range/Units 21:20 WBC (3.8-10.6) k/uL RBC (3.80-5.40) m/uL Hgb (11.4-16.0) gm/dL Hct (34.0-46.0) % MCV (80.0-100.0) fL MCH (25.0-35.0) pg MCHC (31.0-37.0) g/dL RDW (11.5-15.5) % Plt Count (150-450) k/uL Neutrophils % % Lymphocytes % % Monocytes % % Eosinophils % % Basophils % % Neutrophils # (1.3-7.7) k/uL Lymphocytes # (1.0-4.8) k/uL Monocytes # (0-1.0) k/uL Eosinophils # (0-0.7) k/uL Basophils # (0-0.2) k/uL PT (9.0-12.0) sec INR (<1.2) APTT (22.0-30.0) sec Sodium (137-145) mmol/L Potassium (3.5-5.1) mmol/L Chloride (98-107) mmol/L Carbon Dioxide (22-30) mmol/L Anion Gap mmol/L BUN (7-17) mg/dL Creatinine (0.52-1.04) mg/dL Est GFR (CKD-EPI)AfAm (>60 ml/min/1.73 sqM) Est GFR (CKD-EPI)NonAf (>60 ml/min/1.73 sqM) Glucose (74-99) mg/dL Plasma Lactic Acid Carlos 1.2 (0.7-2.0) mmol/L Calcium (8.4-10.2) mg/dL Total Bilirubin (0.2-1.3) mg/dL AST (14-36) U/L ALT (4-34) U/L Alkaline Phosphatase (38-126) U/L Total Protein (6.3-8.2) g/dL Albumin (3.5-5.0) g/dL Disposition Clinical Impression: Cerebrovascular accident (CVA), Altered mental status Disposition: ADMITTED IP TO THIS HOSP Referrals: Kylee Figueroa MD [Primary Care Provider] - 1-2 days Time of Disposition: 22:37
--- NOTE | 2020-05-05 21:37 | CT ---
EXAMINATION TYPE: CT brain wo con for TPA DATE OF EXAM: 05/05/2020 COMPARISON: 03/29/2009 HISTORY: cva CT DLP: 1059.6 mGycm Automated exposure control for dose reduction was used. Ventricles have normal size. There is no mass effect nor midline shift. There is no sign of intracran ial hemorrhage. The calvarium is intact. IMPRESSION: Negative unenhanced head CT scan. No change.
--- NOTE | 2020-05-05 22:16 | CT ---
EXAMINATION TYPE: CT angio head neck DATE OF EXAM: 05/05/2020 COMPARISON: None HISTORY: weakness, fatigue, suspected cva CT DLP: 890.1 mGycm Automated exposure control for dose reduction was used. CONTRAST: Performed with IV Contrast, patient injected with 65cc mL of Isovue 370. Images were obtained from the aortic arch to the vertex of the brain with IV contrast and 3-D post pr ocessed images. There is normal branching pattern of the great vessels on the aortic arch. There is bilateral arteria l flow in the subclavian arteries. There is arterial flow in the vertebral arteries bilaterally. Ther e is arterial flow in the common internal and external carotid arteries bilaterally. There is wide pa tency of the carotid artery bifurcations. There is arterial flow in the vertebrobasilar artery system . There is no evidence of carotid or vertebral artery aneurysm or dissection. There is arterial flow in the anterior middle and posterior cerebral arteries. There is normal contra st opacification of the venous sinuses. There is no evidence of intracranial arterial stenosis. There is no mass effect. There is no sign of aneurysm or neovascularity. IMPRESSION: Negative CT angiogram of the neck. Negative CT angiogram of the brain.
[2020-05-05 22:17] LABS: Basophils % (A) 0 %; Eosinophils # (A) 0.3 k/uL (0-0.7); Eosinophils % (A) 3 %; HCT 42.1 % (34.0-46.0); HGB 13.2 gm/dL (11.4-16.0); Lymphocytes # (A) 1.7 k/uL (1.0-4.8); Lymphocytes % (A) 15 %; MCH 25.7 pg (25.0-35.0); MCHC 31.3 g/dL (31.0-37.0); MCV 82.1 fL (80.0-100.0); Mean Platelet Volume 6.9; Monocytes # (A) 0.5 k/uL (0-1.0); Monocytes % (A) 5 %; Neutrophils # (A) 8.2 k/uL (1.3-7.7); Neutrophils % (A) 76 %; Platelet Count 275 k/uL (150-450); RBC 5.13 m/uL (3.80-5.40); WBC 10.8 k/uL (3.8-10.6)
[2020-05-05 22:26] LABS: Albumin 3.8 g/dL (3.5-5.0); Calcium 10.6 mg/dL (8.4-10.2); Potassium 5.4 mmol/L (3.5-5.1); Total Bilirubin 0.7 mg/dL (0.2-1.3); Total Protein 6.8 g/dL (6.3-8.2)
[2020-05-05 22:34] LABS: INR 0.9 (<1.2); Partial Thromboplastin Time 21.3 sec (22.0-30.0); Prothrombin Time 9.6 sec (9.0-12.0)
--- NOTE | 2020-05-05 22:35 | XR ---
EXAMINATION TYPE: XR chest 2V DATE OF EXAM: 05/05/2020 COMPARISON: September 27, 2018 HISTORY: Altered mental status TECHNIQUE: FINDINGS: There is no heart failure nor confluent pneumonic infiltrate. Costophrenic angles are clear . There are chest leads. Bony thorax is intact. IMPRESSION: No active cardiopulmonary disease. No change.
[2020-05-05] MEDS ORDERED: SODIUM CHLORIDE 0.9% 500 ML 500 ML IV ONE (22:42)
[2020-05-05] MEDS ORDERED: ONDANSETRON 4 MG/2 ML VIAL IVP STA (22:46)
[2020-05-05] MEDS ORDERED: METOPROLOL TARTRATE 25 MG TAB PO STA (22:46)
[2020-05-05] MEDS ORDERED: ONDANSETRON 4 MG/2 ML VIAL IVP PRN (22:47)
[2020-05-05 22:50] LABS: Appearance,Urine Clear (Clear); Bilirubin,Urine Negative (Negative); Blood,Urine Trace (Negative); Color,Urine Light Yellow; Glucose,Urine (UA) 4+ (Negative); Ketones,Urine Negative (Negative); Leukocyte Esterase,Urine Negative (Negative); Nitrite,Urine Negative (Negative); PH, Urine 6.5 (5.0-8.0); Protein,Urine 1+ (Negative); RBC,Urine 3 /hpf (0-5); Specific Gravity,Urine 1.026 (1.001-1.035); Urobilinogen,Urine <2.0 mg/dL (<2.0); WBC,Urine 1 /hpf (0-5)
[2020-05-05] MEDS: ASPIRIN 325 MG TAB PO STA ×2 (22:52→23:02)
[2020-05-05] MEDS: ASPIRIN 325 MG TAB PO SCH ×2 (23:01→23:02)
[2020-05-06] MEDS ORDERED: LABETALOL 5 MG/ML VIAL MDV ONE (01:41)
[2020-05-06 03:46] LABS: Glucose,Whole Blood 313 mg/dL (75-99)
[2020-05-06 05:50] LABS: Calcium 9.8 mg/dL (8.4-10.2); HCT 50.5 % (34.0-46.0); MCH 31.8 pg (25.0-35.0); MCHC 33.6 g/dL (31.0-37.0); Mean Platelet Volume 7.4; Platelet Count 240 k/uL (150-450); Potassium 4.9 mmol/L (3.5-5.1); RBC 5.34 m/uL (3.80-5.40); RDW 13.1 % (11.5-15.5); WBC 14.4 k/uL (3.8-10.6)
[2020-05-06 05:51] LABS: MCV 94.5 fL (80.0-100.0)
[2020-05-06] MEDS: INSULIN ASPART (NovoLOG) 100 UNIT/ML VIAL SQ SCH ×4 (06:04→20:28)
[2020-05-06 12:31] LABS: Glucose,Whole Blood 447 mg/dL (75-99)
[2020-05-06] MEDS ORDERED: INSULIN DETEMIR (LEVEMIR) 100 UNIT/ML SYR SQ SCH (13:15)
[2020-05-06] MEDS: CLOPIDOGREL 75 MG TAB PO SCH (14:17)
[2020-05-06] MEDS: METOPROLOL TARTRATE 25 MG TAB PO SCH ×2 (14:17→20:28)
[2020-05-06] MEDS: LORATADINE 10 MG TAB PO SCH (14:18)
[2020-05-06] MEDS: LEVOTHYROXINE 50 MCG TAB PO SCH (14:18)
[2020-05-06] MEDS: LIOTHYRONINE SODIUM 5 MCG TAB PO SCH (14:18)
[2020-05-06] MEDS: SERTRALINE 50 MG TAB PO SCH (14:18)
--- NOTE | 2020-05-06 16:11 | CONS ---
CONSULTATION DATE OF THIS DICTATION: 05/06/2020 HISTORY OF PRESENT ILLNESS: Thank you for asking me to evaluate Karly Goyal, who is a 70-year-old left handed white female who presented to [facility] on 05/05/2020 for evaluation of possible stroke. The patient states that shortly after awakening yesterday she noted a migrainous headache and states that she was "not thinking clearly." She states she could not say the things that she wanted to say, but her comprehension was maintained. She had no associated vertigo, diplopia, difficulty chewing/swallowing, although did develop numbness in the right hand which lasted 10-15 minutes and subsequently resolved. There was no focal weakness and family appreciated no facial droop. The patient was maintained on Plavix 75 mg daily and aspirin 81 mg daily at the time of this event. Currently, the patient states the headache is "a lot better" and speech has significantly improved, although not entirely back to baseline according to her. The character of yesterday's headache was a right-sided pulsating sensation with associated nausea, the patient had 5 episodes of emesis. She was photophobic but did not have phonophobia. She states when the symptoms initially developed, she went back to bed, but did not take any medication for the headache. In the midst of this event, the patient did have her typical migrainous aura described as "zigzags" in her vision. The patient has a long history of migraine, which began at 10 years of age. She states her migrainous headaches used to occur 4-5 times per month, but 2 years ago stopped having them and has not had a migraine until yesterday. Similar to yesterday's headaches, the patient states her previous migraines would be a right-sided pulsating sensation with associated nausea, vomiting, photophobia and disability. With her previous migraines, the patient states at time she would lose vision, developed zigzags in her vision and may have unilateral numbness. Two of her children also have migraines. The patient also has a previous history of stroke in 2008 and states as residual from that event has trouble finding her words. She has no previous history of seizures. She does have a peripheral neuropathy and has been diabetic over the past 10 years. She has obstructive sleep apnea, although was unable to tolerate CPAP. ALLERGIES: IV DYE, LATEX, AMLODIPINE and HYDRALAZINE. HOME MEDICATIONS: Lasix, Zyrtec, NovoLog, Zoloft, Nitrostat, Lopressor, Cytomel, Synthroid, Lantus, and Plavix. PAST MEDICAL HISTORY: Hypertension, diabetes mellitus x10 years, hypothyroidism, coronary artery disease, osteoarthritis, obstructive sleep apnea, peripheral neuropathy, myocardial infarction, bipolar disorder, paroxysmal atrial fibrillation, stroke in 2009 with residual word- finding difficulties and migraine headaches as described above. PAST SURGICAL HISTORY: Hysterectomy, bilateral cataract extraction, thyroid biopsies (benign), right knee arthroscopy, breast lumpectomies (benign), coronary stent placement x2, bilateral hammertoe surgery, and D and C. SOCIAL HISTORY: The patient denied tobacco or alcohol use. She is with 4 children. Lives in house with her , 2 children and grandson. She states she has a walker and wheelchair available to her. FAMILY HISTORY: Patient's parents are . Both had cancer. Mother had lung cancer and father had throat and lung cancer. REVIEW OF SYSTEMS: Fourteen systems are reviewed and no changes were identified. The review of systems documented in the history and physical. PHYSICAL EXAM: Upon arrival to the patient's room in the ICU, she was sitting in a bedside chair, beginning to eat lunch. She was receptive to the examiner, obese, deconditioned, and an accurate historian and appears of stated age. VITAL SIGNS: Blood pressure is 158/75 with a pulse of 92, respiratory rate 14, temperature 97.7, weight is 130.1 kg on a 5 foot 7 inch frame. SKIN, EXTREMITIES: Arthritic changes are noted in the hands. HEAD AND NECK: No signs of trauma. Neck is supple without meningeal signs. Arteries are nontender and without bruits. HEART: Regular rhythm, higher cortical function. MENTAL STATUS: Patient was alert and oriented to self. She knew she was in a hospital in [place], but could not recollect the name of the hospital. She knew the year, month, day of week and including current president. She was able to name, repeat, and read with disorientation, finger-nose extinction to double simultaneous stimulation or dysarthria. Speech was not hesitant. There was no perseveration or paraphasic errors. CRANIAL NERVES 2-12: The pupils are post-surgical and reactive to light symmetrically. No afferent pupillary defect. Visual stroud are intact. III, IV, : No ptosis, extraocular movement were full. No nystagmus. V: Patient reports diminution to pinprick and light touch involving the left-sided ptosis compared to the right. Motor 5 intact. VII: No facial asymmetry VIII: Acuity, reduced finger on the right. IX, X: Palate natividad in midline. XI: Trapezius strength intact. XII: Tongue protruded midline without fasciculation or atrophy. Motor examination, there is no pronator drift. There is mild reduced bulk in hand intrinsic muscles with normal tone and no involuntary movements noted are noted. Strength is 5/5 throughout except at the interossei which are 4+/5 bilaterally. Sensory: Patient reports diminution to pinprick and light touch involving the left upper extremities. The right lower extremities were symmetric. Reflexes right side listed first, biceps 1,1. Brachioradialis 0,.0, triceps 0, 0, patella 0, 0, ankles 0,0. Plantar responses flexor bilaterally. Ly's is absent. Coordination finger- to-nose, [id number] movements are intact. Rapid alternating movements are symmetric with finger and foot tapping. DIAGNOSTIC TESTING: Patient had a CT scan of brain completed without contrast in the emergency room, which demonstrated no acute pathology. There was evidence of an old right park radiata infarct which was seen on a prior MRI from 03/18/2018. CTA of the head/neck vessels was unrevealing. In review of the medical record, the patient had an EEG on 04/27/2014 for memory difficulties, which was read as normal study. In August 2018, the patient was hospitalized at [facility] and diagnosed with a non ST-segment marked infarction, had 2 stents placed and did manifest atrial fibrillation during that hospitalization. CURRENT LAB WORK: Demonstrates a white blood count of 10.8 with hemoglobin of 13.2, platelet count 275. Sodium 136, potassium 4.9, BUN 21 with a creatinine of 0.82. INR 0.9. Calcium 10.6, ALT 22, AST 32. Troponin negative. Cholesterol 222 and LDL 156, HDL of 55. Urinalysis revealed negative nitrate and leukocyte esterase. IMPRESSION: 1. Expressive speech difficulties noted shortly after awakening yesterday morning with a concurrent migrainous headache, differential diagnosis would include complicated migraine versus TIA. If ischemic in nature, etiology may be cardioembolic with history of paroxysmal atrial fibrillation and CTA of the head/neck vessels was unrevealing. The patient's risk factors for stroke include hypertension, diabetes mellitus, coronary artery disease, paroxysmal atrial fibrillation, obesity, previous stroke, and age. The patient was on Plavix and aspirin 81 mg daily at the time of this event. 2. Long history of migrainous headaches since 10 years of age, which have included complicated features including visual loss and unilateral numbness. 3. Obstructive sleep apnea, the patient states she could not tolerate CPAP. 4. Diabetes mellitus x10 years with history of peripheral neuropathy. 5. Old right prak radiata infarct noted on imaging studies back to 03/18/2018. 6. Medical problems including hypothyroidism, osteoarthritis, bipolar disorder. RECOMMENDATION: 1. I discussed my impression and plan with the patient and she expressed understanding. 2. For further evaluation, will pursue MRI of the brain with diffusion-weighted images. CT of the brain demonstrated no acute pathology. 3. The patient has been admitted to the ICU for close neurologic monitoring. 4. Cardiology consultation with the patient's outpatient tankroom tender, Dr. Acevedo. In the setting of the patient's history of paroxysmal atrial fibrillation and the current event which occurred despite compliance Plavix/aspirin therapy, the patient will likely require anticoagulation. 5. Risk factor modification, would recommend weight loss and regular exercise program to tolerance. 6. Tight control of blood sugars and good foot care to minimize progression of neuropathy. 7. Physical, occupational, speech therapy evaluation and treatment. 8. Intense statin therapy. 9. Will follow with you. JOVANY / IJN: [id number] / LAURA
--- NOTE | 2020-05-06 16:50 | CONS ---
CONSULTATION Mrs. Goyal is a 70-year-old female with known history of hypertension, history of diabetes mellitus, and a history of coronary artery disease who presented with an episode of expressive aphasia and confusion. It is getting better at this point. Cardiology consultation was requested because of questionable arrhythmia. On the record, there is a prior history of atrial fibrillation, although the patient cannot recall that she had atrial fibrillation in the past. She has been followed by Dr. Acevedo on a regular basis, underwent cardiac catheterization performed in August 2018 and at that time underwent stenting of her proximal LAD and her PLV. At that time she had chest discomfort prior to the intervention. According to her she has not had any further symptoms of chest discomfort since. She had the episode of expressive aphasia today, but had no associated chest discomfort, dizziness or palpitation. She was in sinus mechanism. She had no focal weakness. The patient denies any clear PND or orthopnea. She has peripheral neuropathy. She has history of obstructive sleep apnea, but unable to tolerate the CPAP. Her coronary risk factors are remarkable for the history of diabetes and hypertension. Her lipid profile is not available to me. MEDICATION: At home included Lasix, Zyrtec, insulin, Zoloft, Lopressor 25 mg twice a day, Cytomel, Synthroid, insulin and Plavix 75 mg daily. REVIEW OF SYSTEMS: RESPIRATORY SYSTEM: She has no recent wheezing or cough. She has mild dyspnea on exertion. GI SYSTEM: No recent GI bleeding, no peptic ulcer disease. SYSTEM: No dysuria or hematuria. NERVOUS SYSTEM: She had the prior diagnosis of stroke. PHYSICAL EXAMINATION: She is a 70-year-old female, alert, oriented, with mild expressive aphasia. Obese. Blood pressure 133/40 with a heart rate in the 70s. On presentation to the emergency room, her blood pressure was elevated in the range of 205. HEAD: Normocephalic. EYES: Sclerae nonicteric. NECK: Good upstroke, no bruit, no jugular venous distension. LUNGS: Clear to auscultation. HEART: Regular rate and rhythm, S1, S2. No S3 with systolic murmur heard at the base, ejection type, no diastolic murmur, no rub. ABDOMEN: Soft, obese, nontender. EXTREMITIES: No edema. LAB DATA: Revealed on presentation white blood cell of 10.8 up to 14.4. Her hemoglobin is up to 17. Her BUN and creatinine 21 and 0.82, potassium 4.9. Her cholesterol 222, LDL of 156. Her calcium is 10.6. Her blood sugar is 333 and 447. EKG revealed a sinus mechanism with borderline fascicular block and nonspecific ST-T wave changes. Chest x-ray shows no acute infiltrate. CT angiogram of the head shows no evidence of abnormality in the neck or in the brain. Her brain CT was unremarkable. IMPRESSION: 1. An episode of expressive aphasia, improving, consistent with cerebrovascular accident. 2. History of coronary artery disease with no clear evidence of recurrent angina pectoris. 3. History of hypertension. 4. Hyperlipidemia. 5. Diabetes mellitus. 6. Obesity. 7. Peripheral neuropathy. RECOMMENDATION: There is a question of atrial fibrillation, although the patient cannot recall that. I will try to review the records of Dr. Acevedo in the office and will continue monitoring. If she had episode of atrial fibrillation, then I would recommend anticoagulation. At that time her Plavix can be stopped. Her diabetes appears to be uncontrolled and will see what her hemoglobin A1c is. I will obtain echocardiogram with Doppler and bubble to see if there is any evidence of shunting and if there is a question, then a transesophageal echocardiogram will be performed. Depending on her progress, further recommendation will be made. Thank you for this consult. Will follow with you. JOVANY / IJN: [id number] /
[2020-05-06 17:01] LABS: Glucose,Whole Blood 341 mg/dL (75-99)
[2020-05-06 20:25] LABS: Glucose,Whole Blood 339 mg/dL (75-99)
[2020-05-06] MEDS: ATORVASTATIN 80 MG TAB PO SCH (20:28)
--- NOTE | 2020-05-06 23:05 | P.HPIM ---
History of Present Illness H&P Date: 05/06/20 Chief Complaint: CVA Karly Goyal is a 70 yo F with PMH CVA on ASA and plavix, T2DM, HTN, HLD, CAD, migraine who presented to the ED for evaluation of possible stroke. She states that she woke up feeling mentally foggy with a headache, she felt that she could not get out the words she wanted. She denies any vertigo but did experience some R hand numbness that lasted about 15 mins. Her family did not appreciate any weakness or facial droop. She did have a significant migraine yesterday that she describes as pulsing and had associated nausea and vomiting. In the ED she was hypertensive to 200/100, WBC 14k, glucose 300, CT brain and CTA negative. Today her headache is much better and she feels her mental fogginess has improved. Review of Systems All systems: negative Constitutional: Denies chills, Denies fever Eyes: denies blurred vision, denies pain Ears, nose, mouth and throat: Denies headache, Denies sore throat Cardiovascular: Denies chest pain, Denies shortness of breath Respiratory: Denies cough Gastrointestinal: Denies abdominal pain, Denies diarrhea, Denies nausea, Denies vomiting Genitourinary: Denies dysuria, Denies hematuria Musculoskeletal: Denies myalgias Integumentary: Denies pruritus, Denies rash Neurological: Reports change in mentation, Reports change in speech, Reports confusion, Reports tingling, Denies numbness, Denies weakness Psychiatric: Denies anxiety, Denies depression Endocrine: Denies fatigue, Denies weight change Past Medical History Past Medical History: Coronary Artery Disease (CAD), CVA/TIA, Diabetes Mellitus, Eye Disorder, Hypertension, Osteoarthritis (OA), Sleep Apnea/CPAP/BIPAP, Thyroid Disorder Additional Past Medical History / Comment(s): Coronary artery disease, details as discussed above, 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 History of Any Multi-Drug Resistant Organisms: None Reported Past Surgical History: Breast Surgery, Hysterectomy, Orthopedic Surgery, Tubal Ligation Additional Past Surgical History / Comment(s): thyroid biopsies, rt knee arthr oscopic surgery, bilateral feet hammer toe repairs, D&C, bilateral CATARACT SURGERY with lens implants, colonoscopies, bilateral breast lumpectomies-benign, tilt table test. Past Anesthesia/Blood Transfusion Reactions: No Reported Reaction, Motion Sickness Additional Past Anesthesia/Blood Transfusion Reaction / Comment(s): LOW BLOOD PRESSURE WITH SURGERY. STATES PROBLEMS WITH MEMORY WITH ANESTHESIA ".No prior blood transfusions Past Psychological History: Anxiety, Bipolar, Depression Additional Psychological History / Comment(s): Manic Depressive Smoking Status: Never smoker Past Alcohol Use History: None Reported Past Drug Use History: None Reported - Past Family History Father Family Medical History: Cancer Additional Family Medical History / Comment(s): Father had lymphoma. He had LUNG, BONE, THROAT AND MOUTH CANCER Brother(s) Family Medical History: Myocardial Infarction ([place]) Additional Family Medical History / Comment(s): Muscle Disease, Rheumatic fever at 2 years old Mother Family Medical History: Cancer Additional Family Medical History / Comment(s): lung cancer- mother. She at the age of 79yrs from esophageal valencia after radiation-unable to eat. Patient states "mother had aneurysm". Medications and Allergies Home Medications Medication Instructions Recorded Confirmed Type Insulin Glargine [Lantus] 40 unit SQ BID 04/26/15 05/06/20 History Levothyroxine Sodium [Synthroid] 50 mcg PO QAM 08/21/17 05/06/20 History Metoprolol Tartrate [Lopressor] 25 mg PO BID 08/21/17 05/06/20 History Nitroglycerin Sl Tabs [Nitrostat] 0.4 mg SUBLINGUAL Q5M PRN #25 tab 09/20/18 05/06/20 Rx Clopidogrel [Plavix] 75 mg PO DAILY 05/21/19 05/06/20 History Cetirizine HCl [Zyrtec] 10 mg PO DAILY 05/06/20 05/06/20 History Furosemide [Lasix] 20 mg PO DAILY 05/06/20 05/06/20 History Insulin Aspart [NovoLOG Flexpen] 6 units SQ AC-TID 05/06/20 05/06/20 History Insulin Aspart [NovoLOG Flexpen] See Protocol SQ AC-TID 05/06/20 05/06/20 History Liothyronine Sodium [Cytomel] 5 mcg PO DAILY 05/06/20 05/06/20 History Sertraline HCl [Zoloft] 50 mg PO DAILY 05/06/20 05/06/20 History Allergies Allergy/AdvReac Type Severity Reaction Status Date / Time adhesive tape Allergy blisters Verified 05/05/20 20:59 Iodinated Contrast Media Allergy Swelling, Verified 05/05/20 20:59 [Iodinated Contrast Media - SHORTNESS IV Dye] OF BREATH latex Allergy Rash/Hives Verified 05/05/20 20:59 talc Allergy Rash/Hives Verified 05/05/20 20:59 amlodipine AdvReac ankle Verified 05/05/20 20:59 swelling hydralazine AdvReac Diarrhea Verified 05/05/20 20:59 metal Allergy Rash/Hives Uncoded 05/05/20 20:59 Physical Exam Vitals: Vital Signs Temp Pulse Resp BP Pulse Ox 05/06/20 22:07 98.0 F 71 14 122/72 96 05/06/20 20:00 98.0 F 69 14 122/72 05/06/20 18:00 72 13 05/06/20 16:00 98 F 72 11 L 129/58 95 05/06/20 12:00 77 13 133/40 95 05/06/20 10:00 88 10 L 165/66 95 05/06/20 08:00 97.7 F 92 14 158/45 95 05/06/20 07:30 95 21 164/56 95 05/06/20 07:00 90 23 168/62 94 L 05/06/20 06:30 92 18 169/64 94 L 05/06/20 06:00 96 14 187/58 95 05/06/20 05:30 94 11 L 179/73 95 05/06/20 05:00 95 15 164/71 96 05/06/20 04:58 94 L 05/06/20 04:30 93 9 L 184/69 97 05/06/20 04:00 110 H 12 203/78 97 05/06/20 03:30 96 17 208/84 95 05/06/20 03:00 109 H 15 191/87 95 05/06/20 02:30 98 18 209/86 95 05/06/20 02:00 104 H 18 208/118 95 05/06/20 01:30 100 10 L 208/118 94 L 05/06/20 01:00 105 H 22 175/88 95 05/06/20 00:30 105 H 17 175/88 94 L 05/06/20 00:10 100.7 F H 106 H 26 H 96 05/05/20 23:00 101 H 20 99 05/05/20 22:30 98.9 F 99 20 161/101 Intake and Output 05/06/20 05/06/20 05/06/20 06:59 14:59 22:59 Intake Total 300 750 200 Output Total 1200 775 150 Balance -900 -25 50 Intake: IV 300 250 200 .9 300 250 200 Oral 500 Output: Urine 1200 775 150 Other: Voiding Method Indwelling Catheter Indwelling Catheter Indwelling Catheter Weight 130.1 kg General: well nourished, well developed, NAD. Vitals reviewed Eyes: PERRL, EOMI, conjunctiva normal HENT: normocephalic, mucus membranes moist Neck: supple, no JVD Lungs: normal respiratory effort, no wheezes or rales CV: Regular rate and rhythm, no murmur. Peripheral pulses 2+ Abdomen: soft, nondistended, no organomegaly Lymph: no cervical or axillary LAD Skin: warm and dry. Neuro: A&Ox3, normal mood and affect Results CBC & Chem 7: 05/06/20 04:29 05/06/20 04:29 Labs: Abnormal Lab Results - Last 24 Hours (Table) 05/05/20 05/05/20 05/05/20 Range/Units 21:20 21:20 22:40 WBC (3.8-10.6) k/uL Hgb (11.4-16.0) gm/dL Hct (34.0-46.0) % APTT 21.3 L (22.0-30.0) sec Sodium 135 L (137-145) mmol/L Potassium 5.4 H (3.5-5.1) mmol/L BUN 22 H (7-17) mg/dL Glucose 333 H (74-99) mg/dL POC Glucose (mg/dL) (75-99) mg/dL Calcium 10.6 H (8.4-10.2) mg/dL Alkaline Phosphatase 135 H (38-126) U/L Cholesterol (<200) mg/dL LDL Cholesterol, Calc (0-99) mg/dL Urine Protein 1+ H (Negative) Urine Glucose (UA) 4+ H (Negative) Urine Blood Trace H (Negative) 05/06/20 05/06/20 05/06/20 Range/Units 00:11 04:29 04:29 WBC 14.4 H (3.8-10.6) k/uL Hgb 17.0 H D (11.4-16.0) gm/dL Hct 50.5 H (34.0-46.0) % APTT (22.0-30.0) sec Sodium 136 L (137-145) mmol/L Potassium (3.5-5.1) mmol/L BUN 21 H (7-17) mg/dL Glucose 390 H (74-99) mg/dL POC Glucose (mg/dL) 313 H (75-99) mg/dL Calcium (8.4-10.2) mg/dL Alkaline Phosphatase (38-126) U/L Cholesterol 222 H (<200) mg/dL LDL Cholesterol, Calc 156 H (0-99) mg/dL Urine Protein (Negative) Urine Glucose (UA) (Negative) Urine Blood (Negative) 05/06/20 05/06/20 05/06/20 Range/Units 12:28 17:00 20:23 WBC (3.8-10.6) k/uL Hgb (11.4-16.0) gm/dL Hct (34.0-46.0) % APTT (22.0-30.0) sec Sodium (137-145) mmol/L Potassium (3.5-5.1) mmol/L BUN (7-17) mg/dL Glucose (74-99) mg/dL POC Glucose (mg/dL) 447 H 341 H 339 H (75-99) mg/dL Calcium (8.4-10.2) mg/dL Alkaline Phosphatase (38-126) U/L Cholesterol (<200) mg/dL LDL Cholesterol, Calc (0-99) mg/dL Urine Protein (Negative) Urine Glucose (UA) (Negative) Urine Blood (Negative) Thrombosis Risk Factor Assmnt - Choose All That Apply Other Risk Factors: Yes Each Risk Factor Represents 2 Points: Age 61-74 years Each Risk Factor Represents 3 Points: History of DVT/PE Thrombosis Risk Factor Assessment Total Risk Factor Score: 5 Thrombosis Risk Factor Assessment Level: High Risk Assessment and Plan (1) Coronary artery disease Current Visit: Yes Status: Acute Code(s): I25.10 - ATHSCL HEART DISEASE OF [place] CORONARY ARTERY W/O ANG PCTRS SNOMED Code(s): 30160723 (2) Type 2 diabetes mellitus Current Visit: Yes Status: Acute Code(s): E11.9 - TYPE 2 DIABETES MELLITUS WITHOUT COMPLICATIONS SNOMED Code(s): 71964619 (3) Altered mental status Current Visit: Yes Status: Acute Code(s): R41.82 - ALTERED MENTAL STATUS, UNSPECIFIED SNOMED Code(s): 445817346 (4) Cerebrovascular accident (CVA) Current Visit: Yes Status: Acute Code(s): I63.9 - CEREBRAL INFARCTION, UNSPECIFIED SNOMED Code(s): 880916418 Plan: 1. Altered mental status due to CVA, in the setting of patient on dual anti- platelet therapy. Cardiology and Neurology consulted. Continue ASA, plavix, start lipitor. Pt for MRI per Neuro 2. T2DM. Continue 60 units levemir daily, accucheck, sliding scale 3. CAD. Continue lopressor 4. Hypothyroidism. Continue synthroid
[2020-05-06] MEDS: INSULIN DETEMIR (LEVEMIR) 100 UNIT/ML SYR SQ SCH (23:07)
[2020-05-07 01:59] LABS: Glucose,Whole Blood 104 mg/dL (75-99)
[2020-05-07 06:20] LABS: Glucose,Whole Blood 102 mg/dL (75-99)
[2020-05-07] MEDS: INSULIN ASPART (NovoLOG) 100 UNIT/ML VIAL SQ SCH ×4 (06:22→20:40)
--- NOTE | 2020-05-07 07:36 | PN ---
PROGRESS NOTE Ms. Goyal is a 70-year-old female known history of diabetes, history of coronary artery disease who presented with expressive aphasia and confusion. She feels well this morning. She was nauseated, but has no chest discomfort. She denies any significant dyspnea. She denies any dizziness or palpitation. She continues to be in sinus mechanism with no evidence of atrial fibrillation. She is lying supine without any difficulties. She continues to be at this time on aspirin once a day, Lipitor 80 mg daily, Plavix 75 mg daily, insulin, levothyroxine, loratadine, metoprolol tartrate 25 mg twice a day, and Zoloft. PHYSICAL EXAMINATION: Blood pressure running in the 150s with the heart rate in the 70s. During the night., the blood pressure was in the 90s. Heart rate in the 70s. LUNGS: Clear. HEART: Regular rate and rhythm. S1, S2. No S3. No rub with a systolic murmur. No diastolic murmur. ABDOMEN: Soft, nontender, obese. EXTREMITIES: No edema. Echocardiogram report pending. IMPRESSION: 1. Episode of aphasia and confusion, could be related to transient ischemic attack. 2. History of coronary artery disease. 3. Diabetes. 4. History of hyperlipidemia. 5. Hypertension. RECOMMENDATION: We will review the results of her echocardiogram. I will review her record to see if there is any documented history of paroxysmal atrial fibrillation and if so, then I will stop the aspirin and Plavix and switch her to oral anticoagulation. Depending on her progress, further recommendation will be made. MMODL / IJN: [id number] /
--- NOTE | 2020-05-07 07:47 | ECHOF ---
Referral Reason:cad,cva MEASUREMENTS -------- HEIGHT: 170.2 cm WEIGHT: 129.7 kg BP: 133/40 RVIDd: 4.1 cm (< 3.3) IVSd: 1.6 cm (0.6 - 1.1) LVIDd: 3.9 cm (3.9 - 5.3) LVPWd: 1.5 cm (0.6 - 1.1) IVSs: 2.3 cm LVIDs: 2.6 cm LVPWs: 1.8 cm LAESV Index (A-L): 29.67 ml/m Ao Diam: 2.8 cm (2.0 - 3.7) AV Cusp: 1.8 cm (1.5 - 2.6) MV EXCURSION: 13.189 mm (> 18.000) MV EF SLOPE: 54 mm/s (70 - 150) EPSS: 0.8 cm MV E Rocky: 1.09 m/s MV DecT: 394 ms MV A Rocky: 1.29 m/s MV E/A Ratio: 0.84 FINDINGS -------- Sinus rhythm. This was a technically adequate study. The left ventricular size is normal. There is moderate concentric left ventricular hypertrophy. O verall left ventricular systolic function is normal with, an EF between 55 - 60 %. The diastolic fi lling pattern is normal for the age of the patient 18.42. The right ventricle is moderately enlarged. LA is midly dilated 29-33ml/m2. The right atrium is mildly enlarged. Contrast study was performed with 2 iv injections of 8 ccs of agitated normal saline, at rest, and wi th cough. Agitated Saline study is negative, no crossing at atrial level or right to left shunt noted. Interatrial and interventricular septum intact. The aortic valve is trileaflet and appears structurally normal. There is no evidence of aortic regu rgitation. There is no evidence of aortic stenosis. Mild mitral regurgitation is present. Mild tricuspid regurgitation present. Unable to estimate RVSP due to inadequate TR jet spectral dop pler profile. There is no pulmonic regurgitation present. The aortic root size is normal. IVC Not well visulized. There is no pericardial effusion. CONCLUSIONS -------- 1. Sinus rhythm. 2. This was a technically adequate study. 3. The left ventricular size is normal. 4. There is moderate concentric left ventricular hypertrophy. 5. Overall left ventricular systolic function is normal with, an EF between 55 - 60 %. 6. The diastolic filling pattern is normal for the age of the patient 18.42 7. The right ventricle is moderately enlarged. 8. LA is midly dilated 29-33ml/m2. 9. The right atrium is mildly enlarged. 10. Contrast study was performed with 2 iv injections of 8 ccs of agitated normal saline, at rest, an d with cough. 11. Agitated Saline study is negative, no crossing at atrial level or right to left shunt noted. 12. Interatrial and interventricular septum intact. 13. The aortic valve is trileaflet and appears structurally normal. 14. There is no evidence of aortic regurgitation. 15. There is no evidence of aortic stenosis. 16. Mild mitral regurgitation is present. 17. Mild tricuspid regurgitation present. 18. Unable to estimate RVSP due to inadequate TR jet spectral doppler profile. 19. There is no pulmonic regurgitation present. 20. The aortic root size is normal. 21. IVC Not well visulized. 22. There is no pericardial effusion. LANDSCAPE MANAGER: Nataliia Goodson RDCS
[2020-05-07] MEDS: INSULIN DETEMIR (LEVEMIR) 100 UNIT/ML SYR SQ SCH ×3 (08:06→20:40)
[2020-05-07] MEDS: CLOPIDOGREL 75 MG TAB PO SCH (10:30)
[2020-05-07] MEDS: LORATADINE 10 MG TAB PO SCH (10:30)
[2020-05-07] MEDS: LIOTHYRONINE SODIUM 5 MCG TAB PO SCH (10:30)
[2020-05-07] MEDS: METOPROLOL TARTRATE 25 MG TAB PO SCH ×2 (10:30→20:41)
[2020-05-07] MEDS: LEVOTHYROXINE 50 MCG TAB PO SCH (10:30)
[2020-05-07] MEDS: SERTRALINE 50 MG TAB PO SCH (10:30)
--- NOTE | 2020-05-07 10:51 | MR ---
MR brain without contrast HISTORY: Altered mental status, cerebrovascular accident Multiplanar multisequence imaging obtained through the brain. Correlation to prior CT brain 05/05/2020 , MR brain 03/18/2018 Focus of hyperintensity within the periventricular white matter on the right on inversion recovery T2 -weighted sequences is stable, white matter signal changes are stable. There is no hemorrhage or hydr ocephalus. No restricted diffusion to suggest subacute ischemia. There are normal vascular flow voids . Orbits show symmetric appearance. Mild mucoperiosteal thickening present in the maxillary sinuses, inflammatory change in the frontal ethmoidal region.. Corpus callosum, pituitary, cervical medullary junction, cerebellopontine angles are within normal limits. IMPRESSION: Probable chronic small vessel ischemic changes. Age-related atrophy. Mild sinus disease. No subacute infarct evident.
[2020-05-07] MEDS ORDERED: MAGNESIUM SULFATE-D5W PMX 1 GM in DEXTROSE/WATER 1 100ML.BAG IVPB ONE (11:02)
--- NOTE | 2020-05-07 11:02 | PN ---
PROGRESS NOTE DATE OF SERVICE: 05/07/2020 I had the pleasure of re-evaluating Karly Goyal in the ICU, she is currently sitting in a bedside chair and states she is doing fairly well. She states her speech has returned to baseline, she has had no recurrent right hand numbness and the headache has significantly improved, although not completely resolved. She states she does not require any medication for the headache at this time as it is quite tolerable. The patient was seen by Cardiology in consultation yesterday with plans to evaluate the patient's outpatient cardiology records to evaluate the patient's reported history of atrial fibrillation. CURRENT MEDICATION: Aspirin 325 mg daily, Lipitor 80 mg daily, Plavix 75 mg daily, NovoLog, Levemir, Synthroid, Cytomel, Claritin, Lopressor, Zofran p.r.n., and Zoloft. PHYSICAL EXAM: Upon my arrival to the patient's room, she is sitting in bedside chair, receptive to the examiner. She recollected me from yesterday's evaluate. She is obese and deconditioned. VITAL SIGNS: Blood pressure is 153/48 with pulse of 70, respiratory rate 13, temperature 98.2. NEUROLOGIC EXAMINATION: The patient is alert, oriented to time, place, and person. She was able to name, repeat, and read. Speech is fluent and she follows commands readily. There was no perseveration or paraphasic errors. Cranial nerves 2 through 12 demonstrate post-surgical pupils and hearing acuity reduced to finger rub on the right, these are otherwise intact without evidence of facial asymmetry. MOTOR EXAMINATION: There is no pronator drift. There is mild reduced bulk in hand intrinsic muscles with normal tone and no involuntary movements are noted. Strength is 5/5 throughout except at the interossei which are 4+/5 bilaterally. Reflexes 1/4 at the biceps, 0/4 at the remainder of the reflexes. Plantar responses flexor bilaterally. Ly's are absent. Coordination gvbpad-bq-cxai, dyzp-en-gxsb movements are intact. Rapid movements are symmetric with finger and foot tapping. DIAGNOSTIC TESTING: Patient had an echocardiogram performed on 05/06/2020, the patient was in sinus rhythm at the time of evaluation. Ejection fraction sotomayor was 55% to 60%. Left ventricular size was normal, left atrium was mildly dilated and agitated saline study was negative for shunt. IMPRESSION: 1. Expressive speech difficulties noted shortly after awakening on 05/05/2020 with a concurrent migrainous headache, likely secondary to complicated migraine versus TIA. If ischemic, etiology is suspected to be cardioembolic with history of paroxysmal atrial fibrillation and CTA of the head/neck vessels was unrevealing. The patient has risk factors for stroke include hypertension, diabetes mellitus, coronary artery disease, paroxysmal atrial fibrillation by history, obesity, previous stroke, and age. The patient was on Plavix and aspirin 81 mg daily at the time of this event. 2. Long history of migrainous headaches since 10 years of age, which have included complicated features including visual loss and unilateral numbness. 3. Obstructive sleep apnea, the patient cannot tolerate CPAP. 4. Diabetes mellitus x10 years with history of peripheral neuropathy. 5. 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 RECOMMENDATION: 1. I discussed my impression and plan with the patient and she expressed understanding. 2. Cardiology was consulted and are evaluating the patient's medical records regarding her history of paroxysmal atrial fibrillation. In the setting of this history and the current event which occurred despite compliance with Plavix/aspirin therapy, the patient will likely require anticoagulation. 3. Echocardiogram with bubble study completed yesterday demonstrated ejection fraction of 55%-60% with mild left atrial dilation and negative bubble study. 4. MRI of the brain with diffusion-weighted images is pending at the time of this dictation. 5. Risk factor modification, would recommend weight loss and regular exercise program to tolerance. 6. Tight control of blood sugars and good foot care to minimize progression of neuropathy. 7. Physical, occupational, speech therapy evaluation and treatment. 8. Intense statin therapy, the patient is currently on Lipitor 80 mg. 9. This is my last day on the Neurology service, please refer to this schedule for neurology coverage. Thank you for allowing me to participate in the care of your patient. Critical care time spent in evaluation 35 minutes. MMODL / IJN: [id number] / LAURA
--- NOTE | 2020-05-07 11:30 | P.PN ---
Subjective Progress Note Date: 05/07/20 Karly Goyal is a 70 yo F with PMH CVA on ASA and plavix, T2DM, HTN, HLD, CAD, migraine who presented to the ED for evaluation of possible stroke. She states that she woke up feeling mentally foggy with a headache, she felt that she could not get out the words she wanted. She denies any vertigo but did experience some R hand numbness that lasted about 15 mins. Her family did not appreciate any weakness or facial droop. She did have a significant migraine yesterday that she describes as pulsing and had associated nausea and vomiting. In the ED she was hypertensive to 200/100, WBC 14k, glucose 300, CT brain and CTA negative. Today her headache is much better and she feels her mental fogginess has improved. 05/15/2020 significant clinical improvement. Evaluated by both neurology and cardiology with recommendations noted. Neuro workup in progress, scheduled for MRI today. Echo reporting LV function normal, EF 55-60%, no lvvoz-ih-fxll shunt noted, Maintained on statin, aspirin, Plavix. Cardiology discussing possibly switching oral anticoagulations pending further review of history regarding p roximal atrial fibrillation. Reports mental fogginess, right hand numbness has resolved. Complains of migraine headache. Telemetry sinus rhythm Complains of constipation, last bowel movement prior to admission. Blood sugars previously elevated, better controlled today. Denies chest pain, palpitations or shortness of breath. Denies any lightheadedness, dizziness or focal deficits. Objective - Vital Signs Vital signs: Vital Signs Temp 98.1 F 05/07/20 08:00 Pulse 76 05/07/20 08:00 Resp 20 05/07/20 08:00 BP 114/58 05/07/20 08:00 Pulse Ox 94 L 05/07/20 08:00 Intake & Output 05/06/20 05/07/20 05/07/20 18:59 06:59 18:59 Intake Total 950 Output Total 925 50 Balance 25 -50 Weight 132.3 kg Intake: IV 450 .9 450 Oral 500 Output: Urine 925 50 Other: Voiding Method Indwelling Catheter Indwelling Catheter - Exam PHYSICAL EXAM: VITAL SIGNS: As above GENERAL: Sitting up in chair, no acute distress HEENT: PERRL, EOMI, Conjunctivae normal. Tongue midline. Oral mucosa moist NECK: No JVD. No thyroid enlargement. No LNs CARDIOVASCULAR: S1, S2 regular.. No murmur RESPIRATION: Breath sounds diminished in the bases. No rhonchi or crackles. No bronchial breathing. ABDOMEN: Soft, nontender . No guarding. no masses palpable. No ascites, No hepatosplenomegaly.Bowel sounds heard. LEGS: Positive edema, positive pulses PSYCHIATRY: Alert and oriented X3, mood and affect normal. NERVOUS SYSTEM: Cranial N 2-12 grossly normal. Speech fluent and appropriate. Moves all 4 limbs. No focal deficits. Strength and sensation grossly intact.. Skin: no rash - Labs CBC & Chem 7: 05/06/20 04:29 05/06/20 04:29 Labs: Abnormal Lab Results - Last 24 Hours (Table) 05/06/20 05/06/20 05/06/20 Range/Units 12:28 17:00 20:23 POC Glucose (mg/dL) 447 H 341 H 339 H (75-99) mg/dL 05/07/20 05/07/20 Range/Units 01:57 06:18 POC Glucose (mg/dL) 104 H 102 H (75-99) mg/dL Assessment and Plan Assessment: (1) Coronary artery disease Current Visit: Yes Status: Acute Code(s): I25.10 - ATHSCL HEART DISEASE OF [place] CORONARY ARTERY W/O ANG PCTRS SNOMED Code(s): 95045702 (2) Type 2 diabetes mellitus, uncontrolled, hyperglycemia, currently controlled Current Visit: Yes Status: Acute Code(s): E11.9 - TYPE 2 DIABETES MELLITUS WITHOUT COMPLICATIONS SNOMED Code(s): 73085631 (3) Altered mental status, acute metabolic encephalopathy secondary to TIA, CVA Current Visit: Yes Status: Acute Code(s): R41.82 - ALTERED MENTAL STATUS, UNSPECIFIED SNOMED Code(s): 532004717 (4) Cerebrovascular accident (CVA), workup in progress, suspect TIA symptoms resolved within 24 hours Current Visit: Yes Status: Acute Code(s): I63.9 - CEREBRAL INFARCTION, UNSPECIFIED SNOMED Code(s): 930964675 (5) hypothyroidism (6) migraine headaches, history of (7) morbid obesity, BMI 45.7 (8) obstructive sleep apnea, unable to tolerate CPAP (9) old right park radiata infarct Plan: Continue on current medication regime ,monitoring and symptomatic treatment. Maintained on dual antiplatelet therapy, statin, beta yadira. Anticoagulation as per cardiology. Possible event monitor at [place]. Neuro workup in progress with MRI pending. Colace/Senokot-S ordered for constipation. The impression and plan of care has been dictated as directed. : I performed a history and examination of this patient, discussed the same with the dictator. I agree with the dictator's note ,documented as a scribe. Any additional findings or plans will be noted.
[2020-05-07] MEDS: DOCUSATE 100 MG CAP PO SCH ×2 (11:49→20:45)
[2020-05-07] MEDS: ACETAMINOPHEN IV (For NPO) 1,000 MG in EMPTY BAG 1 BAG IVPB ONE ×2 (11:49→12:13)
[2020-05-07] MEDS: PANTOPRAZOLE 40 MG/10 ML VIAL IVP SCH (11:52)
[2020-05-07 12:46] LABS: Glucose,Whole Blood 231 mg/dL (75-99)
[2020-05-07 14:30] LABS: Hemoglobin A1C 10.7 % (4.0-6.0)
[2020-05-07 17:08] LABS: Glucose,Whole Blood 290 mg/dL (75-99)
[2020-05-07] MEDS ORDERED: INSULIN DETEMIR (LEVEMIR) 100 UNIT/ML SYR SQ ONE (17:29)
[2020-05-07 20:35] LABS: Glucose,Whole Blood 298 mg/dL (75-99)
[2020-05-07] MEDS: ATORVASTATIN 80 MG TAB PO SCH (20:39)
[2020-05-07] MEDS: SENNOSIDES-DOCUSATE SODIUM 1 EACH TAB PO SCH (20:45)
[2020-05-08 06:21] LABS: Potassium 4.9 mmol/L (3.5-5.1)
[2020-05-08 06:54] LABS: Glucose,Whole Blood 161 mg/dL (75-99)
[2020-05-08] MEDS: INSULIN ASPART (NovoLOG) 100 UNIT/ML VIAL SQ SCH ×2 (07:23→13:12)
[2020-05-08] MEDS: INSULIN DETEMIR (LEVEMIR) 100 UNIT/ML SYR SQ SCH (08:43)
[2020-05-08 08:56] VITALS: RESP 16
[2020-05-08] MEDS: ASPIRIN 325 MG TAB PO SCH (10:19)
[2020-05-08] MEDS: METOPROLOL TARTRATE 25 MG TAB PO SCH (10:19)
[2020-05-08] MEDS: LEVOTHYROXINE 50 MCG TAB PO SCH (10:19)
[2020-05-08] MEDS: SERTRALINE 50 MG TAB PO SCH (10:19)
[2020-05-08] MEDS: LIOTHYRONINE SODIUM 5 MCG TAB PO SCH (10:19)
[2020-05-08] MEDS: LORATADINE 10 MG TAB PO SCH (10:19)
[2020-05-08] MEDS: CLOPIDOGREL 75 MG TAB PO SCH (10:19)
[2020-05-08] MEDS: DOCUSATE 100 MG CAP PO SCH (10:20)
[2020-05-08] MEDS: PANTOPRAZOLE 40 MG/10 ML VIAL IVP SCH (10:20)
[2020-05-08] MEDS: SENNOSIDES-DOCUSATE SODIUM 1 EACH TAB PO SCH (10:20)
--- NOTE | 2020-05-08 11:30 | PN ---
PROGRESS NOTE Ms. Goyal is a 70-year-old female who presented with evidence of cerebrovascular accident. She is doing well this morning. Her breathing stable. She denies any chest pain. She denies any dizziness or palpitation. Continues to be in sinus mechanism. I reviewed her prior workup in the office and there are no episodes of atrial fibrillation that was documented. The patient's expressive aphasia and confusion has improved. On the monitor, she is in sinus mechanism and has not shown any episodes of atrial fibrillation. She continues to be at this time on aspirin once a day, Plavix 75 mg daily, Lipitor 80 mg daily, insulin, metoprolol tartrate 25 mg twice a day, levothyroxine, Protonix. PHYSICAL EXAMINATION: Blood pressure running in the 160s to 180 with a heart rate in the 80s. LUNGS: Clear. HEART; Regular rate and rhythm, S1, S2. No S3. No rub. ABDOMEN: Soft, obese, nontender. EXTREMITIES: No edema. IMPRESSION: 1. Status post cerebrovascular accident, resolved. 2. Hypertension. 3. Hyperlipidemia. 4. Diabetes mellitus. RECOMMENDATION: From the cardiac standpoint, I see no documentation of atrial fibrillation at this point. I see no indication for anticoagulation, but I would recommend that she follows up with Dr. Acevedo as an outpatient to evaluate her rhythm and probably proceed with event monitor to rule out any atrial fibrillation that requires switching to anticoagulation. Because of her elevated blood pressure and her history of diabetes, I will add an HEIDE inhibitor to her regimen. She should be able to be discharged home soon and follow up with Dr. Acevedo as an outpatient. MMODL / IJN: [id number] /
[2020-05-08 12:06] VITALS: BP 179/81; TEMP 97.5
[2020-05-08 12:07] LABS: Glucose,Whole Blood 287 mg/dL (75-99)
[2020-05-08 13:11] VITALS: PULSE 77
--- NOTE | 2020-05-08 14:49 | P.DS ---
Providers Date of admission: 05/05/20 22:39 Expected date of discharge: 05/08/20 Attending physician: Boris Galeano MD Consults: 05/05/20 22:38 Consult Physician Routine Consulting Provider: Tor Alvarenga Consult Reason/Comments: CVA Do you want consulting provider notified?: Yes 05/06/20 12:37 Consult Physician Routine Consulting Provider: Joshua Acevedo Consult Reason/Comments: tia and hx of a fib Do you want consulting provider notified?: Yes Primary care physician: [facility] Course: 70 yo F with PMH CVA on ASA and plavix, T2DM, HTN, HLD, CAD, migraine who presented to the ED for evaluation of possible stroke. She states that she woke up feeling mentally foggy with a headache, she felt that she could not get out the words she wanted. She denies any vertigo but did experience some R hand numbness that lasted about 15 mins. Her family did not appreciate any weakness or facial droop. She did have a significant migraine yesterday that she descr ibes as pulsing and had associated nausea and vomiting. In the ED she was hypertensive to 200/100, WBC 14k, glucose 300, CT brain and CTA negative. Today her headache is much better and she feels her mental fogginess has improved. 05/07/2020 significant clinical improvement. Evaluated by both neurology and cardiology with recommendations noted. Neuro workup in progress, scheduled for MRI today. Echo reporting LV function normal, EF 55-60%, no yxiuu-hi-ynow shunt noted, Maintained on statin, aspirin, Plavix. Cardiology discussing possibly switching oral anticoagulations pending further review of history regarding proximal atrial fibrillation. Reports mental fogginess, right hand numbness has resolved. Complains of migraine headache. Telemetry sinus rhythm Complains of constipation, last bowel movement prior to admission. Blood sugars previously elevated, better controlled today. Denies chest pain, palpitations or shortness of breath. Denies any lightheadedness, dizziness or focal deficits. 05/08/2020; Patient did undergo MRI of the brain which was negative for any acute infarct; cardiology saw patient and no evidence of atrial fibrillation was recorded; patient is recommended discharge and follow-up with primary house wirer for possible event monitor; no indication for oral anticoagulation therapy at this time per cardiology; patient will be discharged home on current medications and follow-up with PCP Plan - Discharge Summary Discharge Rx Participant: No New Discharge Prescriptions: New Aspirin 325 mg PO DAILY #30 tab Docusate [Colace] 100 mg PO BID #60 cap Atorvastatin [Lipitor] 80 mg PO HS #30 tab Lisinopril [Zestril] 5 mg PO BID #30 tab Continue Insulin Glargine [Lantus] 40 unit SQ BID Metoprolol Tartrate [Lopressor] 25 mg PO BID Levothyroxine Sodium [Synthroid] 50 mcg PO QAM Nitroglycerin Sl Tabs [Nitrostat] 0.4 mg SUBLINGUAL Q5M PRN #25 tab PRN Reason: Chest Pain Clopidogrel [Plavix] 75 mg PO DAILY Liothyronine Sodium [Cytomel] 5 mcg PO DAILY Sertraline HCl [Zoloft] 50 mg PO DAILY Furosemide [Lasix] 20 mg PO DAILY Cetirizine HCl [Zyrtec] 10 mg PO DAILY Insulin Aspart [NovoLOG Flexpen] 6 units SQ AC-TID Insulin Aspart [NovoLOG Flexpen] See Protocol SQ AC-TID Discharge Medication List Insulin Glargine [Lantus] 40 unit SQ BID 04/26/15 [History] Levothyroxine Sodium [Synthroid] 50 mcg PO QAM 08/21/17 [History] Metoprolol Tartrate [Lopressor] 25 mg PO BID 08/21/17 [History] Nitroglycerin Sl Tabs [Nitrostat] 0.4 mg SUBLINGUAL Q5M PRN #25 tab 09/20/18 [Rx] Clopidogrel [Plavix] 75 mg PO DAILY 05/21/19 [History] Cetirizine HCl [Zyrtec] 10 mg PO DAILY 05/06/20 [History] Furosemide [Lasix] 20 mg PO DAILY 05/06/20 [History] Insulin Aspart [NovoLOG Flexpen] 6 units SQ AC-TID 05/06/20 [History] Insulin Aspart [NovoLOG Flexpen] See Protocol SQ AC-TID 05/06/20 [History] Liothyronine Sodium [Cytomel] 5 mcg PO DAILY 05/06/20 [History] Sertraline HCl [Zoloft] 50 mg PO DAILY 05/06/20 [History] Aspirin 325 mg PO DAILY #30 tab 05/08/20 [Rx] Atorvastatin [Lipitor] 80 mg PO HS #30 tab 05/08/20 [Rx] Docusate [Colace] 100 mg PO BID #60 cap 05/08/20 [Rx] Lisinopril [Zestril] 5 mg PO BID #30 tab 05/08/20 [Rx] Follow up Appointment(s)/Referral(s): Kylee Figueroa MD [Primary Care Provider] - 1-2 days Joshua Acevedo MD [STAFF PHYSICIAN] - 1 Week [facility] Visiting Nurse, [NON-STAFF] - 1-2 Days Patient Instructions/Handouts: Ischemic Stroke (GEN), Hypertension (GEN) Discharge Disposition: HOME WITH HOME HEALTH SERVICES
[2020-05-08] MEDS ORDERED: LISINOPRIL 5 MG TAB PO SCH (21:00)
[2020-05-09] MEDS ORDERED: PANTOPRAZOLE 40 MG TABLET PO SCH (09:00)
== END 2020-05-08 15:10 | disposition home health service (06) | DRG 69 ==
LOC: EC 20:51 → 2SICU 22:39
PROVIDERS: ADMIT Family Medicine; ATTEND Family Medicine
DX: G45.9 Transient cerebral ischemic attack, unspecified (principal); G93.41 Metabolic encephalopathy; R47.01 Aphasia; Z68.42 Body mass index [BMI] 45.0-49.9, adult; Z11.59 Encounter for screening for other viral diseases; E03.9 Hypothyroidism, unspecified; E11.42 Type 2 diabetes mellitus with diabetic polyneuropathy; E11.65 Type 2 diabetes mellitus with hyperglycemia; E66.01 Morbid (severe) obesity due to excess calories; E78.5 Hyperlipidemia, unspecified; F31.9 Bipolar disorder, unspecified; F41.9 Anxiety disorder, unspecified; G43.909 Migraine, unspecified, not intractable, without status migrainosus; G47.33 Obstructive sleep apnea (adult) (pediatric); I10 Essential (primary) hypertension; I25.10 Atherosclerotic heart disease of native coronary artery without angina pectoris; I25.2 Old myocardial infarction; I48.0 Paroxysmal atrial fibrillation; R20.0 Anesthesia of skin; E04.1 Nontoxic single thyroid nodule; K59.00 Constipation, unspecified; M19.90 Unspecified osteoarthritis, unspecified site; Z79.02 Long term (current) use of antithrombotics/antiplatelets; Z79.4 Long term (current) use of insulin; Z79.82 Long term (current) use of aspirin; Z79.890 Hormone replacement therapy; Z79.899 Other long term (current) drug therapy; Z80.1 Family history of malignant neoplasm of trachea, bronchus and lung; Z80.7 Family history of other malignant neoplasms of lymphoid, hematopoietic and related tissues; Z80.8 Family history of malignant neoplasm of other organs or systems; Z82.49 Family history of ischemic heart disease and other diseases of the circulatory system; Z86.73 Personal history of transient ischemic attack (TIA), and cerebral infarction without residual deficits; Z90.710 Acquired absence of both cervix and uterus; Z95.5 Presence of coronary angioplasty implant and graft; Z96.1 Presence of intraocular lens; Z98.41 Cataract extraction status, right eye; Z98.42 Cataract extraction status, left eye; Z91.041 Radiographic dye allergy status; Z91.040 Latex allergy status
CPT/HCPCS: 36415; 70450; 70496; 70498; 70551; 71046; 80048; 80053; 80061; 81001; 83036; 83605; 84484; 85025; 85027; 85610; 85730; 93005; 93306; 96361; 96374; 96375; 99285

== ENCOUNTER 2020-05-19 06:20 | Emergency (ER) | payer MEDICARE ==
[2020-05-19 06:29] VITALS: RESP 18; TEMP 98.5
[2020-05-19] MEDS ORDERED: ONDANSETRON 4 MG/2 ML VIAL IVP STA (06:41)
[2020-05-19] MEDS ORDERED: SODIUM CHLORIDE 0.9% 1,000 ML IV STA (06:41)
--- NOTE | 2020-05-19 06:48 | ED ---
Abdominal Pain HPI - General Source: patient, RN notes reviewed Mode of arrival: wheelchair Limitations: no limitations <Justin Coleman - Last Filed: 05/19/20 09:15> <Mauri Yip - Last Filed: 05/19/20 15:41> - General Chief Complaint: Abdominal Pain Stated Complaint: Abdominal Pain, nausea, vomiting Time Seen by Provider: 05/19/20 06:30 - History of Present Illness Initial Comments: 70-year-old female presents emergency Department chief complaint of left lower quadrant abdominal pain. Patient states she's had increasing pain last 4 days. She has meant to nausea and vomiting no diarrhea no melena hematochezia. Patient states she is slightly constipated she does have some mild dysuria and states his been like that since she had a catheter approximately 2 weeks ago. Patient denies any fever, chills. No chest pain or shortness breath no flank pain no back pain. Patient had a prior cholecystectomy and hysterectomy no other abdominal surgeries. Patient has no history of diverticulitis. (Justin Coleman) - Related Data Home Medications Medication Instructions Recorded Confirmed Insulin Glargine [Lantus] 40 unit SQ BID 04/26/15 05/06/20 Levothyroxine Sodium [Synthroid] 50 mcg PO QAM 08/21/17 05/06/20 Metoprolol Tartrate [Lopressor] 25 mg PO BID 08/21/17 05/06/20 Clopidogrel [Plavix] 75 mg PO DAILY 05/21/19 05/06/20 Cetirizine HCl [Zyrtec] 10 mg PO DAILY 05/06/20 05/06/20 Furosemide [Lasix] 20 mg PO DAILY 05/06/20 05/06/20 Insulin Aspart [NovoLOG Flexpen] 6 units SQ AC-TID 05/06/20 05/06/20 Insulin Aspart [NovoLOG Flexpen] See Protocol SQ AC-TID 05/06/20 05/06/20 Liothyronine Sodium [Cytomel] 5 mcg PO DAILY 05/06/20 05/06/20 Sertraline HCl [Zoloft] 50 mg PO DAILY 05/06/20 05/06/20 Previous Rx's Medication Instructions Recorded Nitroglycerin Sl Tabs [Nitrostat] 0.4 mg SUBLINGUAL Q5M PRN #25 tab 10/26/18 Aspirin 325 mg PO DAILY #30 tab 05/08/20 Atorvastatin [Lipitor] 80 mg PO HS #30 tab 05/08/20 Docusate [Colace] 100 mg PO BID #60 cap 05/08/20 Lisinopril [Zestril] 5 mg PO BID #30 tab 05/08/20 Cephalexin [Keflex] 500 mg PO Q6HR #28 cap 05/19/20 Ondansetron Odt [Zofran Odt] 4 mg PO Q8HR PRN #10 tab 05/19/20 Allergies Allergy/AdvReac Type Severity Reaction Status Date / Time adhesive tape Allergy blisters Verified 05/19/20 06:29 Iodinated Contrast Media Allergy Swelling, Verified 05/19/20 06:29 [Iodinated Contrast Media - SHORTNESS IV Dye] OF BREATH latex Allergy Rash/Hives Verified 05/19/20 06:29 talc Allergy Rash/Hives Verified 05/19/20 06:29 amlodipine AdvReac ankle Verified 05/19/20 06:29 swelling hydralazine AdvReac Diarrhea Verified 05/19/20 06:29 metal Allergy Rash/Hives Uncoded 05/19/20 06:29 Review of Systems ROS Other: All systems not noted in ROS Statement are negative. <Justin Coleman - Last Filed: 05/19/20 09:15> ROS Other: All systems not noted in ROS Statement are negative. <Mauri Yip - Last Filed: 05/19/20 15:41> ROS Statement: Those systems with pertinent positive or pertinent negative responses have been documented in the HPI. 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 History of Any Multi-Drug Resistant Organisms: None Reported Past Surgical History: Breast Surgery, Hysterectomy, Orthopedic Surgery, Tubal Ligation Additional Past Surgical History / Comment(s): thyroid biopsies, rt knee arthroscopic surgery, bilateral feet hammer toe repairs, D&C, bilateral CATARACT SURGERY with lens implants, colonoscopies, bilateral breast lumpectomies-benign, tilt table test. Past Anesthesia/Blood Transfusion Reactions: No Reported Reaction, Motion Sickness Additional Past Anesthesia/Blood Transfusion Reaction / Comment(s): LOW BLOOD PRESSURE WITH SURGERY. STATES PROBLEMS WITH MEMORY WITH ANESTHESIA ".No prior blood transfusions Past Psychological History: Anxiety, Bipolar, Depression Smoking Status: Never smoker Past Alcohol Use History: None Reported Past Drug Use History: None Reported - Past Family History Father Family Medical History: Cancer Additional Family Medical History / Comment(s): Father had lymphoma. He had LUNG, BONE, THROAT AND MOUTH CANCER Brother(s) Family Medical History: Myocardial Infarction ([place]) Additional Family Medical History / Comment(s): Muscle Disease, Rheumatic fever at 2 years old Mother Family Medical History: Cancer Additional Family Medical History / Comment(s): lung cancer- mother. She at the age of 79yrs from esophageal valencia after radiation-unable to eat. Patient states "mother had aneurysm". <Justin Coleman - Last Filed: 05/19/20 09:15> General Exam Limitations: no limitations General appearance: alert, in no apparent distress Head exam: Present: atraumatic, normocephalic, normal inspection Eye exam: Present: normal appearance, PERRL, EOMI. Absent: scleral icterus, conjunctival injection, periorbital swelling ENT exam: Present: normal exam, normal oropharynx, mucous membranes moist, TM's normal bilaterally Neck exam: Present: normal inspection, full ROM. Absent: tenderness, meningismus, lymphadenopathy Respiratory exam: Present: normal lung sounds bilaterally. Absent: respiratory distress, wheezes, rales, rhonchi, stridor Cardiovascular Exam: Present: regular rate, normal rhythm, normal heart sounds. Absent: systolic murmur, diastolic murmur, rubs, gallop, clicks GI/Abdominal exam: Present: soft, tenderness (Mild to moderate lower quadrant), normal bowel sounds. Absent: distended, guarding, rebound, rigid Back exam: Absent: CVA tenderness (R), CVA tenderness (L) Neurological exam: Present: alert, oriented X3 Skin exam: Present: warm, dry, intact, normal color. Absent: rash <Justin Coleman - Last Filed: 05/19/20 09:15> Course <Mauri Yip - Last Filed: 05/19/20 15:41> Vital Signs 05/19/20 05/19/20 05/19/20 06:27 08:44 09:00 Temperature 98.5 F Pulse Rate 78 70 Respiratory 18 18 18 Rate Blood Pressure 200/73 154/56 154/56 O2 Sat by Pulse 96 97 95 Oximetry 05/19/20 09:59 Temperature Pulse Rate 62 Respiratory 18 Rate Blood Pressure 164/44 O2 Sat by Pulse 99 Oximetry - Reevaluation(s) Reevaluation #1: 05/19/20 15:40 PA supervision: I proceed evaluate this case patient did present with complaints that were consistent with urinary tract infection also appear to be dehydrated. She did have an elevated white count with a left shift CT of the abdomen showed no evidence of kidney stones. After discussion the patient has elected to go home she'll be on appropriate antibiotics. (Mauri Yip) Medical Decision Making - Lab Data Result diagrams: 05/19/20 06:46 05/19/20 06:46 <Justin Coleman - Last Filed: 05/19/20 09:15> - Lab Data Result diagrams: 05/19/20 06:46 05/19/20 06:46 <Mauri Yip - Last Filed: 05/19/20 15:41> - Medical Decision Making 70-year-old female presented to emergency department for left-sided abdominal pain, nausea vomiting. Patient's found have urinary tract infection. There is no evidence of diverticulitis or kidney stone. There is some edema noted on CT and which this is an area of ecchymosis on her abdomen. There is no signs of infection. Patient was given Rocephin will be discharged with Keflex, Zofran return parameters were discussed. (Justin Coleman) - Lab Data Lab Results 05/19/20 05/19/20 05/19/20 Range/Units 06:46 06:46 06:46 WBC 15.6 H (3.8-10.6) k/uL RBC 4.65 (3.80-5.40) m/uL Hgb 12.8 D (11.4-16.0) gm/dL Hct 38.0 (34.0-46.0) % MCV 81.7 D (80.0-100.0) fL MCH 27.5 (25.0-35.0) pg MCHC 33.6 (31.0-37.0) g/dL RDW 14.7 (11.5-15.5) % Plt Count 330 (150-450) k/uL Neutrophils % 84 % Lymphocytes % 10 % Monocytes % 4 % Eosinophils % 1 % Basophils % 0 % Neutrophils # 13.1 H (1.3-7.7) k/uL Lymphocytes # 1.6 (1.0-4.8) k/uL Monocytes # 0.6 (0-1.0) k/uL Eosinophils # 0.2 (0-0.7) k/uL Basophils # 0.0 (0-0.2) k/uL PT 9.5 (9.0-12.0) sec INR 0.9 (<1.2) APTT 22.3 (22.0-30.0) sec Sodium 134 L (137-145) mmol/L Potassium 4.5 (3.5-5.1) mmol/L Chloride 101 (98-107) mmol/L Carbon Dioxide 27 (22-30) mmol/L Anion Gap 6 mmol/L BUN 24 H (7-17) mg/dL Creatinine 0.84 (0.52-1.04) mg/dL Est GFR (CKD-EPI)AfAm 80 (>60 ml/min/1.73 sqM) Est GFR (CKD-EPI)NonAf 70 (>60 ml/min/1.73 sqM) Glucose 297 H (74-99) mg/dL Plasma Lactic Acid Carlos (0.7-2.0) mmol/L Calcium 10.2 (8.4-10.2) mg/dL Total Bilirubin 0.7 (0.2-1.3) mg/dL AST 17 (14-36) U/L ALT 18 (4-34) U/L Alkaline Phosphatase 131 H (38-126) U/L Total Protein 6.2 L (6.3-8.2) g/dL Albumin 3.4 L (3.5-5.0) g/dL Amylase 30 (30-110) U/L Lipase 14 L (23-300) U/L Urine Color Urine Appearance (Clear) Urine pH (5.0-8.0) Ur Specific Stearns (1.001-1.035) Urine Protein (Negative) Urine Glucose (UA) (Negative) Urine Ketones (Negative) Urine Blood (Negative) Urine Nitrite (Negative) Urine Bilirubin (Negative) Urine Urobilinogen (<2.0) mg/dL Ur Leukocyte Esterase (Negative) Urine RBC (0-5) /hpf Urine WBC (0-5) /hpf Urine WBC Clumps (None) /hpf Urine Bacteria (None) /hpf Urine Mucus (None) /hpf 05/19/20 05/19/20 Range/Units 06:46 08:14 WBC (3.8-10.6) k/uL RBC (3.80-5.40) m/uL Hgb (11.4-16.0) gm/dL Hct (34.0-46.0) % MCV (80.0-100.0) fL MCH (25.0-35.0) pg MCHC (31.0-37.0) g/dL RDW (11.5-15.5) % Plt Count (150-450) k/uL Neutrophils % % Lymphocytes % % Monocytes % % Eosinophils % % Basophils % % Neutrophils # (1.3-7.7) k/uL Lymphocytes # (1.0-4.8) k/uL Monocytes # (0-1.0) k/uL Eosinophils # (0-0.7) k/uL Basophils # (0-0.2) k/uL PT (9.0-12.0) sec INR (<1.2) APTT (22.0-30.0) sec Sodium (137-145) mmol/L Potassium (3.5-5.1) mmol/L Chloride (98-107) mmol/L Carbon Dioxide (22-30) mmol/L Anion Gap mmol/L BUN (7-17) mg/dL Creatinine (0.52-1.04) mg/dL Est GFR (CKD-EPI)AfAm (>60 ml/min/1.73 sqM) Est GFR (CKD-EPI)NonAf (>60 ml/min/1.73 sqM) Glucose (74-99) mg/dL Plasma Lactic Acid Carlos 0.8 (0.7-2.0) mmol/L Calcium (8.4-10.2) mg/dL Total Bilirubin (0.2-1.3) mg/dL AST (14-36) U/L ALT (4-34) U/L Alkaline Phosphatase (38-126) U/L Total Protein (6.3-8.2) g/dL Albumin (3.5-5.0) g/dL Amylase (30-110) U/L Lipase (23-300) U/L Urine Color Yellow Urine Appearance Turbid H (Clear) Urine pH 5.5 (5.0-8.0) Ur Specific Stearns 1.016 (1.001-1.035) Urine Protein 2+ H (Negative) Urine Glucose (UA) 3+ H (Negative) Urine Ketones Negative (Negative) Urine Blood Large H (Negative) Urine Nitrite Negative (Negative) Urine Bilirubin Negative (Negative) Urine Urobilinogen <2.0 (<2.0) mg/dL Ur Leukocyte Esterase Large H (Negative) Urine RBC >182 H (0-5) /hpf Urine WBC >182 H (0-5) /hpf Urine WBC Clumps Many H (None) /hpf Urine Bacteria Many H (None) /hpf Urine Mucus Few H (None) /hpf Disposition Is patient prescribed a controlled substance at d/c from ED?: No Time of Disposition: 09:16 <Justin Coleman - Last Filed: 05/19/20 09:15> <Mauri Yip - Last Filed: 05/19/20 15:41> Clinical Impression: Nausea & vomiting, UTI (urinary tract infection) Disposition: HOME SELF-CARE Condition: Stable Instructions (If sedation given, give patient instructions): Urinary Tract Infection in Women (ED) Additional Instructions: Please return to the Emergency Department if symptoms worsen or any other c oncerns. Prescriptions: Cephalexin [Keflex] 500 mg PO Q6HR #28 cap Ondansetron Odt [Zofran Odt] 4 mg PO Q8HR PRN #10 tab PRN Reason: Nausea Referrals: Kylee Figueroa MD [Primary Care Provider] - 1-2 days
[2020-05-19 07:16] LABS: Albumin 3.4 g/dL (3.5-5.0); Calcium 10.2 mg/dL (8.4-10.2); Potassium 4.5 mmol/L (3.5-5.1); Total Bilirubin 0.7 mg/dL (0.2-1.3); Total Protein 6.2 g/dL (6.3-8.2)
--- NOTE | 2020-05-19 07:28 | CT ---
EXAMINATION TYPE: CT abdomen pelvis wo con DATE OF EXAM: 05/19/2020 COMPARISON: None HISTORY: LLQ pain CT DLP: 1690.4 mGycm Examination of the solid and hollow viscera is limited given the lack of contrast. FINDINGS: LUNG BASES: No evidence for nodule. No evidence for infiltrate. LIVER/GB: Cholecystectomy clips identified. No space-occupying hepatic lesion. PANCREAS: No pancreatic mass identified. No inflammatory process seen. SPLEEN: No evidence for splenomegaly. No intrasplenic lesions seen. Splenic granulomas noted. ADRENALS: No adrenal nodules identified. No evidence for thickening. KIDNEYS: No evidence for renal mass. No nephrolithiasis. No hydronephrosis. BOWEL: Appendix has a normal appearance. No evidence of bowel obstruction. No inflammatory process. Lymph nodes: No evidence for adenopathy greater than 1 cm. Abdominal aorta: Atheromatous changes seen. No evidence for aneurysm. Genital organs: No significant abnormality. Other: Skin thickening and subcutaneous edema left lower quadrant may be infectious in nature or post traumatic. IMPRESSION: 1. No significant intra-abdominal abnormality to account for the patient's symptoms. 2.Skin thickening and subcutaneous edema left lower quadrant may be infectious in nature or posttraum atic.
[2020-05-19 07:33] LABS: INR 0.9 (<1.2); Partial Thromboplastin Time 22.3 sec (22.0-30.0); Prothrombin Time 9.5 sec (9.0-12.0)
[2020-05-19 07:36] LABS: Basophils % (A) 0 %; Eosinophils # (A) 0.2 k/uL (0-0.7); Eosinophils % (A) 1 %; Lymphocytes # (A) 1.6 k/uL (1.0-4.8); Lymphocytes % (A) 10 %; MCH 27.5 pg (25.0-35.0); MCHC 33.6 g/dL (31.0-37.0); Monocytes # (A) 0.6 k/uL (0-1.0); Monocytes % (A) 4 %; Neutrophils # (A) 13.1 k/uL (1.3-7.7); Neutrophils % (A) 84 %; Platelet Count 330 k/uL (150-450); RBC 4.65 m/uL (3.80-5.40); RDW 14.7 % (11.5-15.5); WBC 15.6 k/uL (3.8-10.6)
[2020-05-19 07:48] LABS: HGB 12.8 gm/dL (11.4-16.0)
[2020-05-19 07:49] LABS: MCV 81.7 fL (80.0-100.0)
[2020-05-19 08:47] LABS: Appearance,Urine Turbid (Clear); Bacteria,Urine Many /hpf; Bilirubin,Urine Negative (Negative); Blood,Urine Large (Negative); Color,Urine Yellow; Glucose,Urine (UA) 3+ (Negative); Ketones,Urine Negative (Negative); Leukocyte Esterase,Urine Large (Negative); Mucus,Urine Few /hpf; Nitrite,Urine Negative (Negative); PH, Urine 5.5 (5.0-8.0); Protein,Urine 2+ (Negative); RBC,Urine >182 /hpf (0-5); Specific Gravity,Urine 1.016 (1.001-1.035); Urobilinogen,Urine <2.0 mg/dL (<2.0); WBC,Urine >182 /hpf (0-5)
[2020-05-19] MEDS ORDERED: cefTRIAXone IN SWFI 1,000 MG/10 ML SYRINGE IVP STA (09:14)
[2020-05-19 10:00] VITALS: BP 164/44; PULSE 62
== END 2020-05-19 09:59 | disposition home or self-care (01) ==
LOC: EC 06:20
DX: N39.0 Urinary tract infection, site not specified (principal); R58 Hemorrhage, not elsewhere classified; R60.9 Edema, unspecified; D72.829 Elevated white blood cell count, unspecified; F41.9 Anxiety disorder, unspecified; F31.9 Bipolar disorder, unspecified; E07.9 Disorder of thyroid, unspecified; G47.33 Obstructive sleep apnea (adult) (pediatric); M19.90 Unspecified osteoarthritis, unspecified site; I25.119 Atherosclerotic heart disease of native coronary artery with unspecified angina pectoris; I10 Essential (primary) hypertension; E11.42 Type 2 diabetes mellitus with diabetic polyneuropathy; R26.9 Unspecified abnormalities of gait and mobility; Z79.02 Long term (current) use of antithrombotics/antiplatelets; Z79.4 Long term (current) use of insulin; Z79.890 Hormone replacement therapy; Z79.82 Long term (current) use of aspirin; Z79.899 Other long term (current) drug therapy; Z91.048 Other nonmedicinal substance allergy status; Z91.041 Radiographic dye allergy status; Z91.040 Latex allergy status; Z88.8 Allergy status to other drugs, medicaments and biological substances; Z99.89 Dependence on other enabling machines and devices; Z86.79 Personal history of other diseases of the circulatory system; Z90.49 Acquired absence of other specified parts of digestive tract; Z90.710 Acquired absence of both cervix and uterus; Z86.73 Personal history of transient ischemic attack (TIA), and cerebral infarction without residual deficits
CPT/HCPCS: 36415; 80053; 82150; 83605; 83690; 85025; 85610; 85730; 81001; 87086; 74176; 99284; 96365; 96375; 96361; J2405; J0696; 87077; 87186

== ENCOUNTER 2020-07-14 23:42 | Inpatient (IN) | payer MEDICARE ==
[2020-07-15] MEDS ORDERED: ASPIRIN 81 MG PO STA (00:07)
--- NOTE | 2020-07-15 00:24 | ED ---
Chest Pain HPI - General Source: patient Mode of arrival: wheelchair Limitations: no limitations <Chadwick Anne - Last Filed: 07/15/20 02:32> <Rahul Delgadillo - Last Filed: 07/17/20 08:40> - General Chief Complaint: Chest Pain Stated Complaint: Chest Pain Time Seen by Provider: 07/15/20 00:07 - History of Present Illness Initial Comments: Patient is 70-year-old female with history of CVA, diabetes, hyperlipidemia, hypertension presenting to the emergency department with a chief complaint of chest pain. Patient reports she's been having on and off chest pressure going across the chest for the last 24 hours. Patient reports the symptoms are exacerbated whenever she lays down but alleviated whenever she sitting up. Patient reports about half hour prior to arrival she took 2 nitro which helped alleviate the symptoms along with decrease of blood pressure. Patient reports she's been having elevated blood pressure her since last night. Denies any lightheadedness or dizziness. Denies any diaphoretic episodes. She does report bilateral lower extremity edema at baseline. Does report occasional nausea and nonbilious, nonbloody vomiting over the past week but states this is not related to her chest pain. Denies any headaches, one-sided weakness or paresthesias, visual changes at this time. (Chadwick Anne) - Related Data Home Medications Medication Instructions Recorded Confirmed Insulin Glargine [Lantus] 60 unit SQ HS 04/26/15 07/15/20 Levothyroxine Sodium [Synthroid] 50 mcg PO QAM 08/21/17 07/15/20 Metoprolol Tartrate [Lopressor] 25 mg PO BID 08/21/17 07/15/20 Clopidogrel [Plavix] 75 mg PO DAILY 05/21/19 07/15/20 Cetirizine HCl [Zyrtec] 10 mg PO DAILY PRN 05/06/20 07/15/20 Furosemide [Lasix] 20 mg PO DAILY 05/06/20 07/15/20 Insulin Aspart [NovoLOG Flexpen] 6 units SQ AC-TID 05/06/20 07/15/20 Insulin Aspart [NovoLOG Flexpen] See Protocol SQ AC-TID 05/06/20 07/15/20 Liothyronine Sodium [Cytomel] 5 mcg PO DAILY 05/06/20 07/15/20 Sertraline HCl [Zoloft] 50 mg PO HS 05/06/20 07/15/20 Calcium Carbonate [Calcium] 600 mg PO DAILY 07/15/20 07/15/20 Cholecalciferol [Vitamin D3 (25 5,000 unit PO DAILY 07/15/20 07/15/20 Mcg = 1000 Iu)] Docusate [Colace] 100 mg PO BID PRN 07/15/20 07/15/20 Multivitamins, Thera [Multivitamin 1 tab PO DAILY 07/15/20 07/15/20 (formulary)] Nystatin 100,000 Unit/gm Powd 1 applic TOPICAL BID PRN 07/15/20 07/15/20 [Mycostatin Powder] Vitamin B Complex 1 tab PO DAILY 07/15/20 07/15/20 lisinopriL [Zestril] 2.5 mg PO DAILY 07/15/20 07/15/20 Previous Rx's Medication Instructions Recorded Nitroglycerin Sl Tabs [Nitrostat] 0.4 mg SUBLINGUAL Q5M PRN #25 tab 09/20/18 Aspirin 325 mg PO DAILY #30 tab 05/08/20 Atorvastatin [Lipitor] 80 mg PO HS #30 tab 05/08/20 Ondansetron Odt [Zofran Odt] 4 mg PO Q8HR PRN #10 tab 05/19/20 Allergies Allergy/AdvReac Type Severity Reaction Status Date / Time adhesive tape Allergy blisters Verified 07/15/20 08:09 Iodinated Contrast Media Allergy Swelling, Verified 07/15/20 08:09 [Iodinated Contrast Media - SHORTNESS IV Dye] OF BREATH latex Allergy Rash/Hives Verified 07/15/20 08:09 talc Allergy Rash/Hives Verified 07/15/20 08:09 amlodipine AdvReac ankle Verified 07/15/20 08:09 swelling hydralazine AdvReac Diarrhea Verified 07/15/20 08:09 metal Allergy Rash/Hives Uncoded 07/15/20 08:09 Review of Systems ROS Other: All systems not noted in ROS Statement are negative. <Chadwick Anne - Last Filed: 07/15/20 02:32> ROS Other: All systems not noted in ROS Statement are negative. <Rahul Delgadillo - Last Filed: 07/17/20 08:40> ROS Statement: Those systems with pertinent positive or pertinent negative responses have been documented in the HPI. EKG Findings - EKG Comments: EKG Findings:: Sinus rhythm advised her to a changes. Sinus arrhythmia. Temperature 92, GA 170, QRS 76, QTC 396. 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 History of Any Multi-Drug Resistant Organisms: None Reported Past Surgical History: Breast Surgery, Hysterectomy, Orthopedic Surgery, Tubal Ligation Additional Past Surgical History / Comment(s): thyroid biopsies, rt knee arthroscopic surgery, bilateral feet hammer toe repairs, D&C, bilateral CATARACT SURGERY with lens implants, colonoscopies, bilateral breast lumpectomies-benign, tilt table test. Past Anesthesia/Blood Transfusion Reactions: No Reported Reaction, Motion Sickne ss Additional Past Anesthesia/Blood Transfusion Reaction / Comment(s): LOW BLOOD PRESSURE WITH SURGERY. STATES PROBLEMS WITH MEMORY WITH ANESTHESIA ".No prior blood transfusions Past Psychological History: Anxiety, Bipolar, Depression Smoking Status: Never smoker Past Alcohol Use History: None Reported Past Drug Use History: None Reported - Past Family History Father Family Medical History: Cancer Additional Family Medical History / Comment(s): Father had lymphoma. He had LUNG, BONE, THROAT AND MOUTH CANCER Brother(s) Family Medical History: Myocardial Infarction ([place]) Additional Family Medical History / Comment(s): Muscle Disease, Rheumatic fever at 2 years old Mother Family Medical History: Cancer Additional Family Medical History / Comment(s): lung cancer- mother. She at the age of 79yrs from esophageal valencia after radiation-unable to eat. Patient states "mother had aneurysm". <Chadwick Anne - Last Filed: 07/15/20 02:32> General Exam Limitations: no limitations General appearance: alert, in no apparent distress, obese Head exam: Present: atraumatic, normocephalic, normal inspection Eye exam: Present: normal appearance, PERRL, EOMI Pupils: Present: normal accommodation ENT exam: Present: normal exam, normal oropharynx, mucous membranes moist Neck exam: Present: normal inspection, full ROM. Absent: tenderness Respiratory exam: Present: normal lung sounds bilaterally. Absent: respiratory distress, wheezes, rales Cardiovascular Exam: Present: regular rate, normal rhythm, normal heart sounds GI/Abdominal exam: Present: soft. Absent: distended, tenderness, rebound Extremities exam: Present: normal inspection, full ROM, normal capillary refill, pedal edema (+1 bilateral pitting.). Absent: tenderness Back exam: Present: normal inspection, full ROM Neurological exam: Present: alert, oriented X3 Psychiatric exam: Present: normal affect, normal mood Skin exam: Present: warm, dry, intact, normal color <Chadwick Anne - Last Filed: 07/15/20 02:32> Course Vital Signs 07/14/20 07/15/20 07/15/20 23:46 00:36 01:17 Temperature 98.4 F 98.0 F Pulse Rate 71 61 61 Respiratory 20 18 18 Rate Blood Pressure 201/87 175/97 O2 Sat by Pulse 99 99 99 Oximetry 07/15/20 07/15/20 07/15/20 01:45 01:55 02:30 Temperature 97.8 F Pulse Rate 61 Respiratory 18 Rate Blood Pressure 233/71 189/71 194/72 O2 Sat by Pulse 100 Oximetry 07/15/20 03:15 Temperature 98.1 F Pulse Rate 60 Respiratory 18 Rate Blood Pressure 197/79 O2 Sat by Pulse 99 Oximetry Chest Pain MDM - Differential Diagnosis ACS <Chadwick Anne - Last Filed: 07/15/20 02:32> <Rahul Delgadillo - Last Filed: 07/17/20 08:40> - MDM Patient is 70-year-old female with history of hyperlipidemia, diabetes, CVA, hypertension presenting to the emergency department chief complaint of chest pain. Patient took 2 nitro prior to arrival which helped alleviate the pain. Patient was given aspirin emergency department. Initial troponins are negative. EKG shows sinus arrhythmia with no ST or T-wave changes. Chest x-ray is unremarkable. CMP reveals hyperglycemia of 400. Patient does have hypertension at baseline with a systolic pressure in the 170s. She also has different blood pressures in each arm. Patient reports this is typical for her. Patient will be admitted for cardiac observation. Information discussed with patient. Patient agreed. Case discussed with DR delgadillo Admitting is Dr Lobo (Chadwick Anne) I saw this patient in conjunction with the physician title assistant. I performed independent history and physical exam. Agree with case management. (Rahul Montano) Disposition Is patient prescribed a controlled substance at d/c from ED?: No Time of Disposition: 02:36 <Chadwick Anne - Last Filed: 07/15/20 02:32> <Rahul Delgadillo - Last Filed: 07/17/20 08:40> Clinical Impression: Hyperglycemia, Chest pain Disposition: ADMITTED IP TO THIS HOSP Condition: Good
--- NOTE | 2020-07-15 00:34 | XR ---
EXAMINATION TYPE: XR chest 2V DATE OF EXAM: 07/15/2020 COMPARISON: 05/05/2020 HISTORY: Altered mental status. Chest pain TECHNIQUE: FINDINGS: There is no heart failure nor confluent pneumonic infiltrate. Costophrenic angles are clear . There are no hilar masses. Bony thorax is intact. There are chest leads. IMPRESSION: No active cardiopulmonary disease. Borderline cardiomegaly. No change.
[2020-07-15 00:41] LABS: Basophils # (A) 0.1 k/uL (0-0.2); Basophils % (A) 1 %; Eosinophils # (A) 0.3 k/uL (0-0.7); Eosinophils % (A) 5 %; HCT 37.2 % (34.0-46.0); HGB 12.2 gm/dL (11.4-16.0); Lymphocytes # (A) 1.5 k/uL (1.0-4.8); Lymphocytes % (A) 21 %; MCH 26.9 pg (25.0-35.0); MCHC 32.8 g/dL (31.0-37.0); Mean Platelet Volume 6.9; Monocytes # (A) 0.5 k/uL (0-1.0); Monocytes % (A) 6 %; Neutrophils # (A) 4.7 k/uL (1.3-7.7); Neutrophils % (A) 66 %; Platelet Count 249 k/uL (150-450); RBC 4.54 m/uL (3.80-5.40); RDW 14.8 % (11.5-15.5); WBC 7.1 k/uL (3.8-10.6)
[2020-07-15 01:00] LABS: INR 0.9 (<1.2); Partial Thromboplastin Time 22.3 sec (22.0-30.0); Prothrombin Time 9.7 sec (9.0-12.0)
[2020-07-15 01:06] LABS: Albumin 3.4 g/dL (3.5-5.0); Calcium 10.2 mg/dL (8.4-10.2); Magnesium 1.8 mg/dL (1.6-2.3); Potassium 4.9 mmol/L (3.5-5.1); Total Bilirubin 0.5 mg/dL (0.2-1.3); Total Protein 5.8 g/dL (6.3-8.2)
[2020-07-15] MEDS ORDERED: NITROGLYCERIN SL TABS 0.4 MG TAB SUBLINGUAL PRN (02:31)
[2020-07-15 03:29] LABS: Glucose,Whole Blood 365 mg/dL (75-99)
[2020-07-15 07:05] LABS: Glucose,Whole Blood 307 mg/dL (75-99)
[2020-07-15] MEDS ORDERED: DOCUSATE 100 MG CAP PO PRN (08:24)
[2020-07-15] MEDS ORDERED: ONDANSETRON ODT 4 MG TAB PO PRN (08:24)
[2020-07-15] MEDS ORDERED: NON FORMULARY DRUG (Vitamin B Complex [Vitamin B Complex] 1 TAB) PO SCH (09:00)
[2020-07-15] MEDS ORDERED: lisinopriL 5 MG TAB PO SCH (09:00)
[2020-07-15] MEDS ORDERED: LORATADINE 10 MG TAB PO PRN (09:00)
--- NOTE | 2020-07-15 09:27 | P.CRDCN ---
History of Present Illness Consult date: 07/15/20 Chief complaint: Chest pain History of present illness: This is a pleasant 70-year-old female patient who sees Dr. Acevedo in the office on regular basis with coronary artery disease as well as hypertension and dyslipidemia and questionable history of paroxysmal atrial fibrillation who was admitted to the hospital complaining of chest discomfort. For the last few days, the patient noticed that her pressure has been out of control. She was ge tting blood pressure readings in the office of of 200 mmHg systolic. Every time the pressure goes up she started experiencing discomfort in the chest. And once her pressure comes down the discomfort will go away. Because of that she decided to come to the hospital. Her pressure in the hospital has been elevated. She is on metoprolol as well as Lasix. Currently she is chest pain- free. No shortness of breath or dizziness or heart racing or syncope. The EKG showed sinus rhythm without any significant ST or T-wave abnormalities. The cardiac enzymes were checked and came in to be unremarkable. The chest x-ray did not show any acute abnormalities. I am going to resume her medications at home include the Lasix as well as metoprolol. Beside that I would add lisinopril to the current medical regimen. We'll continue monitor the patient for the next 12-24 hours. Otherwise would get an echocardiogram to assess her left ventricular systolic function. Further recommendation to follow that. 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 History of Any Multi-Drug Resistant Organisms: None Reported Past Surgical History: Breast Surgery, Hysterectomy, Orthopedic Surgery, Tubal Ligation Additional Past Surgical History / Comment(s): thyroid biopsies, rt knee arthroscopic surgery, bilateral feet hammer toe repairs, D&C, bilateral CATARACT SURGERY with lens implants, colonoscopies, bilateral breast lumpectomies-benign, tilt table test. Past Anesthesia/Blood Transfusion Reactions: No Reported Reaction, Motion Sickness Additional Past Anesthesia/Blood Transfusion Reaction / Comment(s): LOW BLOOD PRESSURE WITH SURGERY. STATES PROBLEMS WITH MEMORY WITH ANESTHESIA ".No prior blood transfusions Past Psychological History: Anxiety, Bipolar, Depression Additional Psychological History / Comment(s): Manic Depressive Smoking Status: Never smoker Past Alcohol Use History: None Reported Past Drug Use History: None Reported - Past Family History Father Family Medical History: Cancer Additional Family Medical History / Comment(s): Father had lymphoma. He had LUNG, BONE, THROAT AND MOUTH CANCER Brother(s) Family Medical History: Myocardial Infarction ([place]) Additional Family Medical History / Comment(s): Muscle Disease, Rheumatic fever at 2 years old Mother Family Medical History: Cancer Additional Family Medical History / Comment(s): lung cancer- mother. She at the age of 79yrs from esophageal valencia after radiation-unable to eat. Patient states "mother had aneurysm". Medications and Allergies Home Medications Medication Instructions Recorded Confirmed Type Insulin Glargine [Lantus] 60 unit SQ HS 04/26/15 07/15/20 History Levothyroxine Sodium [Synthroid] 50 mcg PO QAM 08/21/17 07/15/20 History Metoprolol Tartrate [Lopressor] 25 mg PO BID 08/21/17 07/15/20 History Nitroglycerin Sl Tabs [Nitrostat] 0.4 mg SUBLINGUAL Q5M PRN #25 tab 09/20/18 07/15/20 Rx Clopidogrel [Plavix] 75 mg PO DAILY 05/21/19 07/15/20 History Cetirizine HCl [Zyrtec] 10 mg PO DAILY PRN 05/06/20 07/15/20 History Furosemide [Lasix] 20 mg PO DAILY 05/06/20 07/15/20 History Insulin Aspart [NovoLOG Flexpen] 6 units SQ AC-TID 05/06/20 07/15/20 History Insulin Aspart [NovoLOG Flexpen] See Protocol SQ AC-TID 05/06/20 07/15/20 History Liothyronine Sodium [Cytomel] 5 mcg PO DAILY 05/06/20 07/15/20 History Sertraline HCl [Zoloft] 50 mg PO HS 05/06/20 07/15/20 History Aspirin 325 mg PO DAILY #30 tab 05/08/20 07/15/20 Rx Atorvastatin [Lipitor] 80 mg PO HS #30 tab 05/08/20 07/15/20 Rx Ondansetron Odt [Zofran Odt] 4 mg PO Q8HR PRN #10 tab 05/19/20 07/15/20 Rx Calcium Carbonate [Calcium] 600 mg PO DAILY 07/15/20 07/15/20 History Cholecalciferol [Vitamin D3 (25 5,000 unit PO DAILY 07/15/20 07/15/20 History Mcg = 1000 Iu)] Docusate [Colace] 100 mg PO BID PRN 07/15/20 07/15/20 History Multivitamins, Thera [Multivitamin 1 tab PO DAILY 07/15/20 07/15/20 History (formulary)] Nystatin 100,000 Unit/gm Powd 1 applic TOPICAL BID PRN 07/15/20 07/15/20 History [Mycostatin Powder] Vitamin B Complex 1 tab PO DAILY 07/15/20 07/15/20 History lisinopriL [Zestril] 2.5 mg PO DAILY 07/15/20 07/15/20 History Allergies Allergy/AdvReac Type Severity Reaction Status Date / Time adhesive tape Allergy blisters Verified 07/15/20 08:09 Iodinated Contrast Media Allergy Swelling, Verified 07/15/20 08:09 [Iodinated Contrast Media - SHORTNESS IV Dye] OF BREATH latex Allergy Rash/Hives Verified 07/15/20 08:09 talc Allergy Rash/Hives Verified 07/15/20 08:09 amlodipine AdvReac ankle Verified 07/15/20 08:09 swelling hydralazine AdvReac Diarrhea Verified 07/15/20 08:09 metal Allergy Rash/Hives Uncoded 07/15/20 08:09 Physical Exam Vitals: Vital Signs Temp Pulse Pulse Resp BP BP Pulse Ox 07/15/20 08:45 97.8 F 65 16 205/68 97 07/15/20 03:50 98.3 F 77 18 176/81 99 07/15/20 03:15 98.1 F 60 18 197/79 99 07/15/20 02:30 97.8 F 61 18 194/72 100 07/15/20 01:55 189/71 07/15/20 01:45 233/71 07/15/20 01:17 98.0 F 61 18 99 07/15/20 00:36 61 18 175/97 99 07/14/20 23:46 98.4 F 71 20 201/87 99 Intake and Output 07/14/20 07/15/20 07/15/20 22:59 06:59 14:59 Other: Voiding Method Toilet Toilet # Voids 1 Weight 130.635 kg - Constitutional General appearance: no acute distress - Respiratory Respiratory: bilateral: CTA - Cardiovascular Rhythm: regular Heart sounds: normal: S1, S2 Results 07/15/20 00:25 07/15/20 00:25 Cardiac Enzymes 07/15/20 07/15/20 07/15/20 Range/Units 00:25 00:25 04:56 AST 18 (14-36) U/L Troponin I 0.017 0.030 (0.000-0.034) ng/mL 07/15/20 Range/Units 07:44 AST (14-36) U/L Troponin I 0.026 (0.000-0.034) ng/mL Coagulation 07/15/20 Range/Units 00:25 PT 9.7 (9.0-12.0) sec APTT 22.3 (22.0-30.0) sec CBC 07/15/20 Range/Units 00:25 WBC 7.1 (3.8-10.6) k/uL RBC 4.54 (3.80-5.40) m/uL Hgb 12.2 (11.4-16.0) gm/dL Hct 37.2 (34.0-46.0) % Plt Count 249 (150-450) k/uL Comprehensive Metabolic Panel 07/15/20 Range/Units 00:25 Sodium 134 L (137-145) mmol/L Potassium 4.9 (3.5-5.1) mmol/L Chloride 102 (98-107) mmol/L Carbon Dioxide 27 (22-30) mmol/L BUN 22 H (7-17) mg/dL Creatinine 0.93 (0.52-1.04) mg/dL Glucose 398 H (74-99) mg/dL Calcium 10.2 (8.4-10.2) mg/dL AST 18 (14-36) U/L ALT 16 (4-34) U/L Alkaline Phosphatase 108 (38-126) U/L Total Protein 5.8 L (6.3-8.2) g/dL Albumin 3.4 L (3.5-5.0) g/dL Current Medications Generic Name Dose Route Start Last Admin Trade Name Freq PRN Reason Stop Dose Admin Aspirin 325 mg 07/16/20 09:00 Aspirin PO DAILY [facility] Atorvastatin Calcium 80 mg 07/15/20 21:00 Lipitor PO HS [facility] Calcium Carbonate/Glycine 500 mg 07/15/20 09:00 Tums PO DAILY [facility] Cholecalciferol 5,000 unit 07/15/20 09:00 Vitamin D3 (25 Mcg = 1000 Iu) PO DAILY [facility] Clopidogrel Bisulfate 75 mg 07/15/20 09:00 Plavix PO DAILY [facility] Docusate Sodium 100 mg 07/15/20 08:24 Colace PO BID PRN Constipation Furosemide 20 mg 07/15/20 09:00 Lasix PO DAILY [facility] Insulin Aspart 0 unit 07/15/20 12:30 Novolog SQ ACHS [facility] Protocol Insulin Detemir 30 unit 07/15/20 08:32 Levemir SQ DAILY@0700 [facility] Levothyroxine Sodium 50 mcg 07/15/20 09:00 Synthroid PO QAM@0630 [facility] Liothyronine Sodium 5 mcg 07/15/20 09:00 Cytomel PO DAILY [facility] Lisinopril 5 mg 07/15/20 09:00 Zestril PO DAILY [facility] Loratadine 10 mg 07/15/20 09:00 Claritin PO DAILY PRN Allergy Symptoms Metoprolol Tartrate 25 mg 07/15/20 09:00 Lopressor PO BID [facility] Multivitamins 1 each 07/15/20 09:00 Theragran PO DAILY [facility] Nitroglycerin 0.4 mg 07/15/20 02:31 Nitrostat SUBLINGUAL Q5M PRN Chest Pain Ondansetron HCl 4 mg 07/15/20 08:24 Zofran Odt PO Q8HR PRN Nausea Sertraline HCl 50 mg 07/15/20 21:00 Zoloft PO HS [facility] Intake and Output 07/14/20 07/15/20 07/15/20 22:59 06:59 14:59 Other: Voiding Method Toilet Toilet # Voids 1 Weight 130.635 kg 07/15/20 00:25 07/15/20 00:25 Assessment and Plan Assessment: Assessment #1 hypertension emergency #2 coronary artery disease #3 dyslipidemia #4 multiple comorbid conditions Plan #1 acute coronary event was ruled out #2 restarted the patient on her home medications including the Lasix and metoprolol #3 obtain an echocardiogram was Doppler #4 monitor the pressure and adjust her medications #5 follow-up with the patient
[2020-07-15] MEDS: CALCIUM CARBONATE 500 MG CHEWABLE PO SCH (10:17)
[2020-07-15] MEDS: INSULIN DETEMIR (LEVEMIR) 100 UNIT/ML SYR SQ SCH (10:17)
[2020-07-15] MEDS: FUROSEMIDE 20 MG TAB PO SCH (10:18)
[2020-07-15] MEDS: CLOPIDOGREL 75 MG TAB PO SCH (10:18)
[2020-07-15] MEDS: CHOLECALCIFEROL 1,000 UNIT TAB PO SCH (10:18)
[2020-07-15] MEDS: MULTIVITAMINS, THERA 1 EACH TAB PO SCH (10:19)
[2020-07-15] MEDS: METOPROLOL TARTRATE 25 MG TAB PO SCH ×2 (10:19→21:50)
[2020-07-15] MEDS: LIOTHYRONINE SODIUM 5 MCG TAB PO SCH (10:19)
[2020-07-15] MEDS: LEVOTHYROXINE 50 MCG TAB PO SCH (10:40)
[2020-07-15 11:24] LABS: Glucose,Whole Blood 341 mg/dL (75-99)
[2020-07-15] MEDS: INSULIN ASPART (NovoLOG) 100 UNIT/ML VIAL SQ SCH ×3 (11:58→21:51)
[2020-07-15 16:37] LABS: Glucose,Whole Blood 285 mg/dL (75-99)
[2020-07-15 21:46] LABS: Glucose,Whole Blood 314 mg/dL (75-99)
[2020-07-15] MEDS: ATORVASTATIN 80 MG TAB PO SCH (21:51)
[2020-07-15] MEDS: SERTRALINE 50 MG TAB PO SCH (21:51)
[2020-07-16 04:44] LABS: Cholesterol 191 mg/dL (<200); HDL Cholesterol 39 mg/dL (40-60); LDL Cholesterol,Calculated 129 mg/dL (0-99); Triglycerides 116 mg/dL (<150)
[2020-07-16] MEDS: LEVOTHYROXINE 50 MCG TAB PO SCH (06:30)
[2020-07-16 06:40] LABS: Glucose,Whole Blood 119 mg/dL (75-99)
[2020-07-16] MEDS: INSULIN ASPART (NovoLOG) 100 UNIT/ML VIAL SQ SCH ×4 (06:45→20:58)
[2020-07-16] MEDS: INSULIN DETEMIR (LEVEMIR) 100 UNIT/ML SYR SQ SCH (06:49)
[2020-07-16] MEDS ORDERED: CAFFEINE CITRATE 60 MG/3 ML VIAL IV PRN (08:37)
[2020-07-16] MEDS ORDERED: AMINOPHYLLINE 500 MG/20 ML VIAL IV PRN (08:37)
[2020-07-16] MEDS ORDERED: REGADENOSON 0.4 MG/5 ML SYRINGE IV ONE (08:37)
--- NOTE | 2020-07-16 09:11 | P.HPIM ---
History of Present Illness H&P Date: 07/15/20 Chief Complaint: chest pain Karly Goyal is a 70 yo F with PMH CAD, HTN, HLD, T2DM who presented to the ED complaining of worsening chest pain and hypertension over the ast few weeks. She complains of mid-sternal pressure and pain especially after eating. she has checked her BP at home and readings have been 200s systolic. She denies any recent change to her diet and tries to follow a low salt and heart healthy diet. She has not been checking her sugars regularly at home but notes they have been running very high and are routinely in the 300s. On presentation she was hyp ertensive to 201/87, WBC 7.1, glucose 398, trop negative, EKG with NSR. Review of Systems All systems: negative Constitutional: Reports malaise, Denies chills, Denies fever Eyes: denies blurred vision, denies pain Ears, nose, mouth and throat: Denies headache, Denies sore throat Cardiovascular: Reports chest pain, Reports dyspnea on exertion Respiratory: Denies cough Gastrointestinal: Denies abdominal pain, Denies diarrhea, Denies nausea, Denies vomiting Genitourinary: Denies dysuria, Denies hematuria Musculoskeletal: Denies myalgias Integumentary: Denies pruritus, Denies rash Neurological: Denies numbness, Denies weakness Psychiatric: Denies anxiety, Denies depression Endocrine: Denies fatigue, Denies weight change Past Medical History Past Medical History: Coronary Artery Disease (CAD), CVA/TIA, Diabetes Mellitus, Eye Disorder, Hypertension, Osteoarthritis (OA), Sleep Apnea/CPAP/BIPAP, Thyroid Disorder Additional Past Medical History / Comment(s): Coronary artery disease, details as discussed above, 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 History of Any Multi-Drug Resistant Organisms: None Reported Past Surgical History: Breast Surgery, Hysterectomy, Orthopedic Surgery, Tubal Ligation Additional Past Surgical History / Comment(s): thyroid biopsies, rt knee arthroscopic surgery, bilateral feet hammer toe repairs, D&C, bilateral CATARACT SURGERY with lens implants, colonoscopies, bilateral breast lumpectomies-benign, tilt table test. Past Anesthesia/Blood Transfusion Reactions: No Reported Reaction, Motion Sickness Additional Past Anesthesia/Blood Transfusion Reaction / Comment(s): LOW BLOOD PRESSURE WITH SURGERY. STATES PROBLEMS WITH MEMORY WITH ANESTHESIA ".No prior blood transfusions Past Psychological History: Anxiety, Bipolar, Depression Additional Psychological History / Comment(s): Manic Depressive Smoking Status: Never smoker Past Alcohol Use History: None Reported Past Drug Use History: None Reported - Past Family History Father Family Medical History: Cancer Additional Family Medical History / Comment(s): Father had lymphoma. He had LUNG, BONE, THROAT AND MOUTH CANCER Brother(s) Family Medical History: Myocardial Infarction ([place]) Additional Family Medical History / Comment(s): Muscle Disease, Rheumatic fever at 2 years old Mother Family Medical History: Cancer Additional Family Medical History / Comment(s): lung cancer- mother. She at the age of 79yrs from esophageal valencia after radiation-unable to eat. Patient states "mother had aneurysm". Medications and Allergies Home Medications Medication Instructions Recorded Confirmed Type Insulin Glargine [Lantus] 60 unit SQ HS 04/26/15 07/15/20 History Levothyroxine Sodium [Synthroid] 50 mcg PO QAM 08/21/17 07/15/20 History Metoprolol Tartrate [Lopressor] 25 mg PO BID 08/21/17 07/15/20 History Nitroglycerin Sl Tabs [Nitrostat] 0.4 mg SUBLINGUAL Q5M PRN #25 tab 09/20/18 07/15/20 Rx Clopidogrel [Plavix] 75 mg PO DAILY 05/21/19 07/15/20 History Cetirizine HCl [Zyrtec] 10 mg PO DAILY PRN 05/06/20 07/15/20 History Furosemide [Lasix] 20 mg PO DAILY 05/06/20 07/15/20 History Insulin Aspart [NovoLOG Flexpen] 6 units SQ AC-TID 05/06/20 07/15/20 History Insulin Aspart [NovoLOG Flexpen] See Protocol SQ AC-TID 05/06/20 07/15/20 History Liothyronine Sodium [Cytomel] 5 mcg PO DAILY 05/06/20 07/15/20 History Sertraline HCl [Zoloft] 50 mg PO HS 05/06/20 07/15/20 History Aspirin 325 mg PO DAILY #30 tab 05/08/20 07/15/20 Rx Atorvastatin [Lipitor] 80 mg PO HS #30 tab 05/08/20 07/15/20 Rx Ondansetron Odt [Zofran Odt] 4 mg PO Q8HR PRN #10 tab 05/19/20 07/15/20 Rx Calcium Carbonate [Calcium] 600 mg PO DAILY 07/15/20 07/15/20 History Cholecalciferol [Vitamin D3 (25 5,000 unit PO DAILY 07/15/20 07/15/20 History Mcg = 1000 Iu)] Docusate [Colace] 100 mg PO BID PRN 07/15/20 07/15/20 History Multivitamins, Thera [Multivitamin 1 tab PO DAILY 07/15/20 07/15/20 History (formulary)] Nystatin 100,000 Unit/gm Powd 1 applic TOPICAL BID PRN 07/15/20 07/15/20 History [Mycostatin Powder] Vitamin B Complex 1 tab PO DAILY 07/15/20 07/15/20 History lisinopriL [Zestril] 2.5 mg PO DAILY 07/15/20 07/15/20 History Allergies Allergy/AdvReac Type Severity Reaction Status Date / Time adhesive tape Allergy blisters Verified 07/15/20 08:09 Iodinated Contrast Media Allergy Swelling, Verified 07/15/20 08:09 [Iodinated Contrast Media - SHORTNESS IV Dye] OF BREATH latex Allergy Rash/Hives Verified 07/15/20 08:09 talc Allergy Rash/Hives Verified 07/15/20 08:09 amlodipine AdvReac ankle Verified 07/15/20 08:09 swelling hydralazine AdvReac Diarrhea Verified 07/15/20 08:09 metal Allergy Rash/Hives Uncoded 07/15/20 08:09 Physical Exam Vitals: Vital Signs Temp Pulse Pulse Resp BP BP Pulse Ox 07/15/20 21:00 67 18 07/15/20 19:39 97.8 F 67 18 160/73 99 07/15/20 15:00 98.0 F 70 16 149/72 99 07/15/20 08:45 97.8 F 65 16 205/68 97 07/15/20 03:50 98.3 F 77 18 176/81 99 07/15/20 03:15 98.1 F 60 18 197/79 99 07/15/20 02:30 97.8 F 61 18 194/72 100 07/15/20 01:55 189/71 07/15/20 01:45 233/71 07/15/20 01:17 98.0 F 61 18 99 07/15/20 00:36 61 18 175/97 99 07/14/20 23:46 98.4 F 71 20 201/87 99 Intake and Output 07/15/20 07/15/20 07/16/20 14:59 22:59 06:59 Intake Total 480 Balance 480 Intake: Oral 480 Other: Voiding Method Toilet Toilet # Voids 1 2 General: well nourished, well developed, NAD. Vitals reviewed Eyes: PERRL, EOMI, conjunctiva normal HENT: normocephalic, mucus membranes moist Neck: supple, no JVD Lungs: normal respiratory effort, no wheezes or rales CV: Regular rate and rhythm, no murmur. Peripheral pulses 2+ Abdomen: soft, nondistended, no organomegaly Lymph: no cervical or axillary LAD Skin: warm and dry. Neuro: A&Ox3, normal mood and affect Results CBC & Chem 7: 07/15/20 00:25 07/15/20 00:25 Labs: Abnormal Lab Results - Last 24 Hours (Table) 07/15/20 07/15/20 07/15/20 Range/Units 00:25 03:27 07:03 Sodium 134 L (137-145) mmol/L BUN 22 H (7-17) mg/dL Glucose 398 H (74-99) mg/dL POC Glucose (mg/dL) 365 H 307 H (75-99) mg/dL Total Protein 5.8 L (6.3-8.2) g/dL Albumin 3.4 L (3.5-5.0) g/dL 07/15/20 07/15/20 07/15/20 Range/Units 11:22 16:34 21:44 Sodium (137-145) mmol/L BUN (7-17) mg/dL Glucose (74-99) mg/dL POC Glucose (mg/dL) 341 H 285 H 314 H (75-99) mg/dL Total Protein (6.3-8.2) g/dL Albumin (3.5-5.0) g/dL Thrombosis Risk Factor Assmnt - Choose All That Apply Other Risk Factors: Yes Each Risk Factor Represents 2 Points: Age 61-74 years Thrombosis Risk Factor Assessment Total Risk Factor Score: 2 Thrombosis Risk Factor Assessment Level: Low Risk Assessment and Plan (1) Hypertensive emergency Current Visit: Yes Status: Acute Code(s): I16.1 - HYPERTENSIVE EMERGENCY SNOMED Code(s): 284300053406213 (2) Chest pain Current Visit: Yes Status: Acute Code(s): R07.9 - CHEST PAIN, UNSPECIFIED SNOMED Code(s): 75346557 (3) Type 2 diabetes mellitus Current Visit: No Status: Acute Code(s): E11.9 - TYPE 2 DIABETES MELLITUS WITHOUT COMPLICATIONS SNOMED Code(s): 23301816 (4) Unstable angina pectoris Current Visit: No Status: Acute Code(s): I20.0 - UNSTABLE ANGINA SNOMED Code(s): 4545383 Plan: 1. Hypertensive emergency. Cardiology consult, plan for echo and Lexiscan stress test. Continue Lopressor, hydrochlorothiazide, Lasix. Increase lisinopril 2. Chest pain. Secondary to above. ACS ruled out. Continue to follow 3. T2DM. Continue levemir. Sliding scale 4. Hypothyroidism. Continue synthroid
--- NOTE | 2020-07-16 10:29 | P.PN ---
Subjective Progress Note Date: 07/16/20 Principal diagnosis: Chest discomfort This is a pleasant 76-year-old female patient was coronary artery disease and prior revascularization as well as hypertension and dyslipidemia who was admitted to the hospital with hypertension emergency. Acute coronary event was ruled out. Yesterday I added lisinopril at 5 mg by mouth daily to her current medical regimen. She was seen today. Unfortunately she continues to have intermittent episodes of chest discomfort/epigastric discomfort. The pressure is better but still not well-controlled. I'm going to add hydrochlorothiazide to the current medical regimen and also increase the dose of lisinopril. Also I am going to obtain a stress test to rule out severe underlying coronary artery disease. Further recommendation to follow that. Objective - Vital Signs Vital signs: Vital Signs Temp 98.1 F 07/16/20 08:17 Pulse 70 07/16/20 08:17 Resp 18 07/16/20 08:17 BP 179/65 07/16/20 08:17 Pulse Ox 98 07/16/20 08:17 Intake & Output 07/15/20 07/16/20 07/16/20 18:59 06:59 18:59 Intake Total 480 Balance 480 Intake: Oral 480 Other: Voiding Method Toilet Toilet # Voids 1 1 - Constitutional General appearance: Present: no acute distress - Respiratory Respiratory: bilateral: CTA - Cardiovascular Rhythm: regular Heart sounds: normal: S1, S2 - Labs CBC & Chem 7: 07/15/20 00:25 07/15/20 00:25 Labs: Abnormal Lab Results - Last 24 Hours (Table) 07/15/20 07/15/20 07/15/20 Range/Units 00:25 11:22 16:34 POC Glucose (mg/dL) 341 H 285 H (75-99) mg/dL LDL Cholesterol, Calc 129 H (0-99) mg/dL HDL Cholesterol 39 L (40-60) mg/dL 07/15/20 07/16/20 Range/Units 21:44 06:33 POC Glucose (mg/dL) 314 H 119 H (75-99) mg/dL LDL Cholesterol, Calc (0-99) mg/dL HDL Cholesterol (40-60) mg/dL Assessment and Plan Assessment: Assessment #1 hypertension emergency #2 coronary artery disease #3 dyslipidemia #4 multiple comorbid conditions Plan #1 acute coronary event was ruled out #2 increase the dose of lisinopril #3 obtain a stress test #4 follow-up with the patient
--- NOTE | 2020-07-16 11:20 | P.PN ---
Subjective Progress Note Date: 07/16/20 Karly Goyal is a 70 yo F with PMH CAD, HTN, HLD, T2DM who presented to the ED complaining of worsening chest pain and hypertension over the ast few weeks. She complains of mid-sternal pressure and pain especially after eating. she has checked her BP at home and readings have been 200s systolic. She denies any recent change to her diet and tries to follow a low salt and heart healthy diet. She has not been checking her sugars regularly at home but notes they have been running very high and are routinely in the 300s. On presentation she was hypertensive to 201/87, WBC 7.1, glucose 398, trop negative, EKG with NSR. 07/16/20 continues to have chest pressure episodes. Evaluated by cardiology and scheduled for stress test, but unfortunately ate breakfast this morning. Hypertensive, sinus rhythm. Patient expresses concern over her being able to get his daily medications, reaching out to family to assist. Objective - Vital Signs Vital signs: Vital Signs Temp 98.1 F 07/16/20 08:17 Pulse 70 07/16/20 08:17 Resp 18 07/16/20 08:17 BP 179/65 07/16/20 08:17 Pulse Ox 98 07/16/20 08:17 Intake & Output 07/15/20 07/16/20 07/16/20 18:59 06:59 18:59 Intake Total 480 Balance 480 Intake: Oral 480 Other: Voiding Method Toilet Toilet # Voids 1 1 - Exam PHYSICAL EXAM: VITAL SIGNS: As above GENERAL: Sitting up in bed, no acute distress, mild anxiety HEENT: Conjunctivae normal. eyes normal. Oral mucosa moist NECK: No JVD. No thyroid enlargement. No LNs CARDIOVASCULAR: S1, S2 regular. No murmur RESPIRATION: Breath sounds diminished in the bases. No rhonchi or crackles. No bronchial breathing. ABDOMEN: Soft, nontender . No guarding. no masses palpable. No ascites, No hepatosplenomegaly.Bowel sounds heard. LEGS: Positive edema, no calf tenderness. PSYCHIATRY: Alert and oriented X3, mood and affect normal. NERVOUS SYSTEM: Cranial N 2-12 grossly normal. Moves all 4 limbs. No focal deficits. Strength and sensation grossly intact.. Skin: Warm and dry, no rash - Labs CBC & Chem 7: 07/15/20 00:25 07/15/20 00:25 Labs: Abnormal Lab Results - Last 24 Hours (Table) 07/15/20 07/15/20 07/15/20 Range/Units 00:25 11:22 16:34 POC Glucose (mg/dL) 341 H 285 H (75-99) mg/dL LDL Cholesterol, Calc 129 H (0-99) mg/dL HDL Cholesterol 39 L (40-60) mg/dL 07/15/20 07/16/20 Range/Units 21:44 06:33 POC Glucose (mg/dL) 314 H 119 H (75-99) mg/dL LDL Cholesterol, Calc (0-99) mg/dL HDL Cholesterol (40-60) mg/dL Assessment and Plan Assessment: Hypertensive emergency Chest pain Unstable angina pectoris Diabetes mellitus type 2 Hypothyroidism Plan: Continue on current medication regime ,monitoring and symptomatic treatment. HEIDE inhibitor dose increased, hydrochlorothiazide added to her antihypertensive regimen. Close monitoring of BP. Stress test pending. The impression and plan of care has been dictated as directed. : I performed a history and examination of this patient, discussed the same with the dictator. I agree with the dictator's note ,documented as a scribe. Any additional findings or plans will be noted.
[2020-07-16] MEDS: hydroCHLOROthiazide 25 MG TAB PO SCH (15:51)
[2020-07-16] MEDS: CLOPIDOGREL 75 MG TAB PO SCH (15:51)
[2020-07-16] MEDS: ASPIRIN 325 MG TAB PO SCH (15:51)
[2020-07-16] MEDS: METOPROLOL TARTRATE 25 MG TAB PO SCH ×2 (15:51→20:58)
[2020-07-16] MEDS: lisinopriL 10 MG TAB PO SCH (15:51)
[2020-07-16] MEDS: FUROSEMIDE 20 MG TAB PO SCH (15:51)
[2020-07-16] MEDS: LIOTHYRONINE SODIUM 5 MCG TAB PO SCH (15:51)
[2020-07-16] MEDS: CHOLECALCIFEROL 1,000 UNIT TAB PO SCH (15:51)
[2020-07-16] MEDS: CALCIUM CARBONATE 500 MG CHEWABLE PO SCH (15:52)
[2020-07-16] MEDS: ATORVASTATIN 80 MG TAB PO SCH (15:52)
[2020-07-16] MEDS: MULTIVITAMINS, THERA 1 EACH TAB PO SCH (15:55)
--- NOTE | 2020-07-16 16:20 | NM ---
EXAMINATION TYPE: NM stress lexiscan cardiolite DATE OF EXAM: 07/16/2020 COMPARISON: NONE HISTORY: Chest pain TECHNIQUE: After the intravenous administration of 10.7 mCi Tc 99m Sestamibi - Cardiolite resting SP ECT images acquired 45 minutes post injection. The patient received 0.4mg Lexiscan, 26.9 mCi Tc 99m Sestamibi - Stress images obtained [address] injection FINDINGS: Review of stress and rest SPECT images demonstrates reversible perfusion abnormality of the anterior wall primarily of the apical and mid portions. Gated analysis shows normal wall motion with an estim ated left ventricular ejection fraction of 53 %. TID 1.19 IMPRESSION: 1. Reversible ischemia of the apical and mid anterior wall. 2. Ejection fraction 53%. Dr. Keisha Cordero discussed findings with Wendy Price RN via the phone on 07/16/2020 at 4:15 P M, and results were acknowledged. A [place] level critical message alert has been initiated for Joesph Quevedo MD~[id number] via the [employer] Critical Results System on 07/16/2020 4:14 PM. This message alert has been sent to Joesph Quevedo MD~[id number] via the preferences provided by the clinician for the receipt of Radiology Critical Finding s. Message ID [id number].
[2020-07-16 16:56] LABS: Glucose,Whole Blood 358 mg/dL (75-99)
--- NOTE | 2020-07-16 17:49 | ECHOF ---
Referral Reason:cp htn MEASUREMENTS -------- HEIGHT: 167.6 cm WEIGHT: 130.6 kg BP: 205/68 RVIDd: 2.8 cm (< 3.3) IVSd: 1.7 cm (0.6 - 1.1) LVIDd: 4.2 cm (3.9 - 5.3) LVPWd: 1.5 cm (0.6 - 1.1) EDV(Teich): 78 ml IVSs: 2.0 cm LVIDs: 2.8 cm LVPWs: 1.6 cm %IVS Thck: 15 % ESV(Teich): 29 ml EF(Teich): 63 % %FS: 33 % SV(Teich): 49 ml LALs A4C: 6.2 cm LAAs A4C: 25.5 cm LAESV A-L A4C: 89 ml LAESV MOD A4C: 81 ml LALs A2C: 6.4 cm LAAs A2C: 25.8 cm LAESV A-L A2C: 88 ml LAESV MOD A2C: 83 ml LAESV(A-L): 90 ml LAESV Index (A-L): 38.26 ml/m Ao Diam: 2.8 cm (2.0 - 3.7) AV Cusp: 2.2 cm (1.5 - 2.6) MV EXCURSION: 16.659 mm (> 18.000) MV EF SLOPE: 93 mm/s (70 - 150) EPSS: 0.3 cm MV E Rocky: 1.53 m/s MV DecT: 230 ms MV Dec Pope: 6.6 m/s MV A Orcky: 1.25 m/s MV E/A Ratio: 1.22 MV PHT: 67 ms LVOT Vmax: 0.98 m/s LVOT maxP.86 mmHg AV Vmax: 1.21 m/s AV maxP.88 mmHg TR Vmax: 2.15 m/s TR maxP.56 mmHg RAP: 5.00 mmHg RVSP: 23.56 mmHg FINDINGS -------- This was a technically adequate study. The left ventricular size is normal. There is moderate concentric left ventricular hypertrophy. O verall left ventricular systolic function is normal with, an EF between 55 - 60 %. The diastolic fi lling pattern is normal for the age of the patient 25.59. The right ventricle is normal in size. LA is moderately dilated 34-39 ml/m2 The right atrial size is normal. Interatrial and interventricular septum intact. The aortic valve is trileaflet and appears structurally normal. There is no evidence of aortic regu rgitation. There is no evidence of aortic stenosis. Moderate mitral regurgitation is present. Mild tricuspid regurgitation present. There is no evidence of pulmonary hypertension. The right v entricular systolic pressure, as measured by Doppler, is 23.56mmHg. There is no pulmonic regurgitation present. The aortic root size is normal. IVC Not well visulized. There is no pericardial effusion. CONCLUSIONS -------- 1. The left ventricular size is normal. 2. There is moderate concentric left ventricular hypertrophy. 3. Overall left ventricular systolic function is normal with, an EF between 55 - 60 %. 4. The diastolic filling pattern is normal for the age of the patient 25.59 5. LA is moderately dilated 34-39 ml/m2 6. Moderate mitral regurgitation is present. 7. Mild tricuspid regurgitation present. X RAY SERVICE TECHNICIAN: Nataliia Goodson RDCS
[2020-07-16] MEDS ORDERED: ALPRAZolam 0.25 MG TAB PO PRN (18:57)
[2020-07-16] MEDS ORDERED: ASPIRIN 325 MG TAB PO STA (18:57)
[2020-07-16] MEDS ORDERED: SODIUM CHLORIDE 0.9% 1,000 ML in EMPTY BAG 1 BAG IV ONE (18:57)
[2020-07-16] MEDS ORDERED: ALPRAZolam 0.5 MG TAB PO PRN (18:57)
--- NOTE | 2020-07-16 19:25 | P.PN ---
Progress Note - Text Progress Note Date: 07/16/20 The stress test came abnormal showing anterior/apical ischemia. I spoke with Dr. Acevedo, he is going to do a heart cath on the pt this coming Sunday.
[2020-07-16 20:42] LABS: Glucose,Whole Blood 357 mg/dL (75-99)
[2020-07-16] MEDS: SERTRALINE 50 MG TAB PO SCH (20:58)
[2020-07-17 05:57] LABS: Glucose,Whole Blood 201 mg/dL (75-99)
[2020-07-17] MEDS: LEVOTHYROXINE 50 MCG TAB PO SCH (05:57)
--- NOTE | 2020-07-17 06:58 | EST ---
EXERCISE STRESS DATE OF SERVICE: 07/16/2020 AGE: 70 SEX: Female HT: 66 WT: 288 PROTOCOL: Lexiscan Cardiolite STAGE DURATION OF EXERCISE HEART RATE REST: 66 BLOOD PRESSURE REST: 200/81 MAXIMUM HEART RATE ACHIEVED: 87 MAXIMUM BLOOD PRESSURE: 204/74 85% MPH: 126 100% MPHR: 148 INDICATION Chest pain. RESULTS: Heart rate 66, pressure is 200/81 mmHg. Baseline EKG showed sinus mechanism. Then 0.4 mg of Lexiscan given over 15 seconds per protocol. Max heart rate was 87 beats per minute. Maximum pressure was 204/74 mmHg. Clinically the patient did not have any symptoms and the EKG did not show any significant ST or T-wave abnormalities concerning for ischemia. CONCLUSION: 1. Nondiagnostic electrocardiogram stress testing in response to Lexiscan. 2. Please follow up on the Cardiolite. MMODL / IJN: [id number] /
[2020-07-17] MEDS: INSULIN ASPART (NovoLOG) 100 UNIT/ML VIAL SQ SCH ×4 (07:11→20:12)
[2020-07-17] MEDS: INSULIN DETEMIR (LEVEMIR) 100 UNIT/ML SYR SQ SCH (07:12)
[2020-07-17] MEDS: CHOLECALCIFEROL 1,000 UNIT TAB PO SCH (09:51)
[2020-07-17] MEDS: lisinopriL 10 MG TAB PO SCH (09:51)
[2020-07-17] MEDS: MULTIVITAMINS, THERA 1 EACH TAB PO SCH (09:51)
[2020-07-17] MEDS: CALCIUM CARBONATE 500 MG CHEWABLE PO SCH (09:51)
[2020-07-17] MEDS: CLOPIDOGREL 75 MG TAB PO SCH (09:51)
[2020-07-17] MEDS: ASPIRIN 325 MG TAB PO SCH (09:51)
[2020-07-17] MEDS: FUROSEMIDE 20 MG TAB PO SCH (09:52)
[2020-07-17] MEDS: hydroCHLOROthiazide 25 MG TAB PO SCH (09:52)
[2020-07-17] MEDS: METOPROLOL TARTRATE 25 MG TAB PO SCH ×2 (09:52→20:12)
[2020-07-17] MEDS: LIOTHYRONINE SODIUM 5 MCG TAB PO SCH (09:52)
[2020-07-17 11:36] LABS: Glucose,Whole Blood 439 mg/dL (75-99)
--- NOTE | 2020-07-17 12:13 | P.PN ---
Subjective On-call hospitalist covering for Dr. Galeano over the weekend, he'll resume the care of the patient on Thursday 07/19 This is a pleasant 70 E. old female with past medical history of coronary artery disease, CVA/TIA, diabetes mellitus, hypertension, etc. arthritis, sleep apnea on CPAP/BiPAP, hypothyroidism., Peripheral neuropathy. Presents because of chest pain. Patient has been evaluated by bridges supervisor and found to have anterior/apical ischemia and the planned to undergo cardiac cath on Sunday vitals stable. Labs reviewed and are unremarkable. Objective - Vital Signs Vital signs: Vital Signs Temp 97.9 F 07/17/20 08:33 Pulse 78 07/17/20 08:33 Resp 18 07/17/20 09:00 BP 127/66 07/17/20 08:33 Pulse Ox 98 07/17/20 08:33 Intake & Output 07/16/20 07/17/20 07/17/20 18:59 06:59 18:59 Intake Total 240 240 Balance 240 240 Weight 130.63 kg Intake: Oral 240 240 Other: Voiding Method Toilet Toilet # Voids 2 - Exam GENERAL: The patient is alert and oriented x3, not in any acute distress. Well developed, well nourished. HEENT: Pupils are round and equally reacting to light. EOMI. No scleral icterus. No conjunctival pallor. Normocephalic, atraumatic. No pharyngeal erythema. No thyromegaly. CARDIOVASCULAR: S1 and S2 present. No murmurs, rubs, or gallops. PULMONARY: Chest is clear to auscultation, no wheezing or crackles. ABDOMEN: Soft, nontender, nondistended, normoactive bowel sounds. No palpable organomegaly. MUSCULOSKELETAL: No joint swelling or deformity. EXTREMITIES: No cyanosis, clubbing, or pedal edema. NEUROLOGICAL: Gross neurological examination did not reveal any focal deficits. SKIN: No rashes. no petechiae. - Labs CBC & Chem 7: 07/15/20 00:25 07/15/20 00:25 Labs: Abnormal Lab Results - Last 24 Hours (Table) 07/16/20 07/16/20 07/17/20 Range/Units 16:55 20:40 05:54 POC Glucose (mg/dL) 358 H 357 H 201 H (75-99) mg/dL 07/17/20 Range/Units 11:35 POC Glucose (mg/dL) 439 H (75-99) mg/dL Assessment and Plan Assessment: Assessment and plan Chest pain with anterior/apical ischemia, pending cardiac cath on Sunday. Continue with aspirin and Plavix -Diabetes mellitus, with hyperglycemia, will increase and Levemir from 30 up to 35. Continue with ISS -Hypertension -Osteoarthritis -Sleep apnea on CPAP/BiPAP -Hypothyroidism -Diabetic neuropathy DVT prophylaxis: Subcutaneous heparin GI prophylaxis Pepcid
--- NOTE | 2020-07-17 13:35 | P.PN ---
Subjective Progress Note Date: 07/17/20 This is a pleasant 76-year-old female patient was coronary artery disease and prior revascularization as well as hypertension and dyslipidemia who was admitted to the hospital with hypertension emergency. Acute coronary event was ruled out. Yesterday I added lisinopril at 5 mg by mouth daily to her current medical regimen. 07/16: She was seen today. Unfortunately she continues to have intermittent ep isodes of chest discomfort/epigastric discomfort. The pressure is better but still not well-controlled. I'm going to add hydrochlorothiazide to the current medical regimen and also increase the dose of lisinopril. Also I am going to obtain a stress test to rule out severe underlying coronary artery disease. Further recommendation to follow that. 07/17: Stress test came back abnormal showing anterior/apical ischemia. She is scheduled for heart catheterization on Sunday with Dr. Acevedo. The patient states that that this morning after she ate breakfast about an hour later she developed chest pain and palpitations. She denies any symptoms at this time and she ate lunch about 1 hour ago. She feels that she is developing chest pain and palpitations about 1 hour after each meal. Patient has been afebrile, heart rate 78, blood pressure 127/66 and pulse ox 90% on room air. Physical examination Gen: This is a morbidly obese 70-year-old female. Patient is resting in recliner and appears to be comfortable and in no acute distress. HEENT: Head is atraumatic, normocephalic. Pupils equal, round. Sclerae is anicteric. NECK: Supple. No JVD. No lymphadenopathy. No thyromegaly. LUNGS: Clear to auscultation. No wheezes or rhonchi. No intercostal retractions. HEART: Regular rate and rhythm. No murmur. ABDOMEN: Soft. Bowel sounds are present. No masses. No tenderness. EXTREMITIES: Trace bilateral pedal edema. No calf tenderness. NEUROLOGICAL: Patient is awake, alert and oriented x3. Cranial nerves 2 through 12 are grossly intact. Assessment #1 hypertension emergency #2 coronary artery disease #3 dyslipidemia #4 multiple comorbid conditions Plan #1 acute coronary event was ruled out #2 continue increased dose of lisinopril #3 continue aspirin, Lipitor, Lopressor #4 heart catheterization scheduled Sunday with Dr. Acevedo #5 Further recommendations based upon clinical course. Nurse practitioner note has been reviewed, I agree with documented findings and plan of care. Patient was seen and examined. Objective - Vital Signs Vital signs: Vital Signs Temp 97.9 F 07/17/20 08:33 Pulse 78 07/17/20 08:33 Resp 18 07/17/20 09:00 BP 127/66 07/17/20 08:33 Pulse Ox 98 07/17/20 08:33 Intake & Output 07/16/20 07/17/20 07/17/20 18:59 06:59 18:59 Intake Total 240 480 Balance 240 480 Weight 130.63 kg Intake: Oral 240 480 Other: Voiding Method Toilet Toilet # Voids 2 1 - Labs CBC & Chem 7: 07/15/20 00:25 07/15/20 00:25 Labs: Abnormal Lab Results - Last 24 Hours (Table) 07/16/20 07/16/20 07/17/20 Range/Units 16:55 20:40 05:54 POC Glucose (mg/dL) 358 H 357 H 201 H (75-99) mg/dL 07/17/20 Range/Units 11:35 POC Glucose (mg/dL) 439 H (75-99) mg/dL
[2020-07-17 16:34] LABS: Glucose,Whole Blood 361 mg/dL (75-99)
[2020-07-17 20:09] LABS: Glucose,Whole Blood 319 mg/dL (75-99)
[2020-07-17] MEDS: SERTRALINE 50 MG TAB PO SCH (20:12)
[2020-07-17] MEDS: ATORVASTATIN 80 MG TAB PO SCH (20:12)
[2020-07-17] MEDS: FAMOTIDINE 20 MG/2 ML VIAL IV SCH (20:12)
[2020-07-17] MEDS: HEPARIN SODIUM,PORCINE 5,000 UNIT/ML 1 ML VIAL SQ SCH (20:13)
[2020-07-17] MEDS ORDERED: INSULIN DETEMIR (LEVEMIR) 100 UNIT/ML SYR SQ ONE (22:45)
[2020-07-17 22:53] LABS: Glucose,Whole Blood 206 mg/dL (75-99)
[2020-07-18 06:26] LABS: Glucose,Whole Blood 153 mg/dL (75-99)
[2020-07-18] MEDS: INSULIN DETEMIR (LEVEMIR) 100 UNIT/ML SYR SQ SCH (06:36)
[2020-07-18] MEDS: LEVOTHYROXINE 50 MCG TAB PO SCH (06:36)
[2020-07-18] MEDS: INSULIN ASPART (NovoLOG) 100 UNIT/ML VIAL SQ SCH ×7 (06:36→21:21)
[2020-07-18] MEDS ORDERED: INSULIN DETEMIR (LEVEMIR) 100 UNIT/ML SYR SQ SCH (07:00)
[2020-07-18] MEDS: CHOLECALCIFEROL 1,000 UNIT TAB PO SCH (08:11)
[2020-07-18] MEDS: FUROSEMIDE 20 MG TAB PO SCH (08:12)
[2020-07-18] MEDS: FAMOTIDINE 20 MG/2 ML VIAL IV SCH (08:12)
[2020-07-18] MEDS: CLOPIDOGREL 75 MG TAB PO SCH ×2 (08:12→11:13)
[2020-07-18] MEDS: ASPIRIN 325 MG TAB PO SCH ×2 (08:12→11:13)
[2020-07-18] MEDS: HEPARIN SODIUM,PORCINE 5,000 UNIT/ML 1 ML VIAL SQ SCH ×2 (08:12→21:21)
--- NOTE | 2020-07-18 08:51 | P.PN ---
Subjective Progress Note Date: 07/18/20 This is a pleasant 76-year-old female patient was coronary artery disease and prior revascularization as well as hypertension and dyslipidemia who was admitted to the hospital with hypertension emergency. Acute coronary event was ruled out. Yesterday I added lisinopril at 5 mg by mouth daily to her current medical regimen. 07/16: She was seen today. Unfortunately she continues to have intermittent ep isodes of chest discomfort/epigastric discomfort. The pressure is better but still not well-controlled. I'm going to add hydrochlorothiazide to the current medical regimen and also increase the dose of lisinopril. Also I am going to obtain a stress test to rule out severe underlying coronary artery disease. Further recommendation to follow that. 07/17: Stress test came back abnormal showing anterior/apical ischemia. She is scheduled for heart catheterization on Sunday with Dr. Acevedo. The patient states that that this morning after she ate breakfast about an hour later she developed chest pain and palpitations. She denies any symptoms at this time and she ate lunch about 1 hour ago. She feels that she is developing chest pain and palpitations about 1 hour after each meal. Patient has been afebrile, heart rate 78, blood pressure 127/66 and pulse ox 90% on room air. 07/18: Patient is seen today in follow-up. She states she has had chest again after she eats. She denies having any shortness of breath. Chest pain gradually resolved. No increased lower extremity edema. No lightheadedness or dizziness. Patient is being transferred to the cardiac stepdown unit with plan for heart catheterization tomorrow with Dr. Acevedo. Patient has been afebrile, heart rate 72, blood pressure 118/66, pulse ox 96% on room air. satellite project site monitor sinus rhythm. Physical examination Gen: This is a morbidly obese 70-year-old female. Patient is resting in a wheelchair and appears to be comfortable and in no acute distress. HEENT: Head is atraumatic, normocephalic. Pupils equal, round. Sclerae is anicteric. NECK: Supple. No JVD. No lymphadenopathy. No thyromegaly. LUNGS: Clear to auscultation. No wheezes or rhonchi. No intercostal retractions. HEART: Regular rate and rhythm. No murmur. ABDOMEN: Soft. Bowel sounds are present. No masses. No tenderness. EXTREMITIES: Trace bilateral pedal edema. No calf tenderness. NEUROLOGICAL: Patient is awake, alert and oriented x3. Cranial nerves 2 through 12 are grossly intact. Assessment #1 hypertension emergency #2 coronary artery disease #3 dyslipidemia #4 multiple comorbid conditions Plan #1 acute coronary event was ruled out #2 continue increased dose of lisinopril #3 continue aspirin, Lipitor, Lopressor #4 heart catheterization scheduled Sunday with Dr. Acevedo #5 Further recommendations based upon clinical course. Nurse practitioner note has been reviewed, I agree with documented findings and plan of care. Patient was seen and examined. Objective - Vital Signs Vital signs: Vital Signs Temp 97.9 F 07/18/20 08:09 Pulse 72 07/18/20 08:18 Resp 16 07/18/20 08:18 BP 118/66 07/18/20 08:09 Pulse Ox 96 07/18/20 08:09 Intake & Output 07/17/20 07/18/20 07/18/20 18:59 06:59 18:59 Intake Total 880 240 Balance 880 240 Intake: Oral 880 240 Other: Voiding Method Toilet Toilet Toilet # Voids 3 3 - Labs CBC & Chem 7: 07/15/20 00:25 07/15/20 00:25 Labs: Abnormal Lab Results - Last 24 Hours (Table) 07/17/20 07/17/20 07/17/20 Range/Units 11:35 16:32 20:07 POC Glucose (mg/dL) 439 H 361 H 319 H (75-99) mg/dL 07/17/20 07/18/20 Range/Units 22:51 06:24 POC Glucose (mg/dL) 206 H 153 H (75-99) mg/dL
[2020-07-18] MEDS: lisinopriL 10 MG TAB PO SCH (11:09)
[2020-07-18] MEDS: METOPROLOL TARTRATE 25 MG TAB PO SCH ×2 (11:09→21:20)
[2020-07-18] MEDS: CALCIUM CARBONATE 500 MG CHEWABLE PO SCH (11:12)
[2020-07-18] MEDS: MULTIVITAMINS, THERA 1 EACH TAB PO SCH (11:14)
[2020-07-18] MEDS: hydroCHLOROthiazide 25 MG TAB PO SCH (12:03)
[2020-07-18] MEDS: LIOTHYRONINE SODIUM 5 MCG TAB PO SCH (12:04)
--- NOTE | 2020-07-18 12:06 | P.PN ---
Subjective On-call hospitalist covering for Dr. Galeano over the weekend, he'll resume the care of the patient on Thursday 07/19 This is a pleasant 70 E. old female with past medical history of coronary artery disease, CVA/TIA, diabetes mellitus, hypertension, etc. arthritis, sleep apnea on CPAP/BiPAP, hypothyroidism., Peripheral neuropathy. Presents because of chest pain. Patient has been evaluated by die fitter and found to have anterior/apical ischemia and the planned to undergo cardiac cath on Sunday vitals stable. Labs reviewed and are unremarkable. 07/18/2020 Patient's transfer to select unit in preparation for cardiac cath tomorrow. No chest pain or dyspnea today. She is hemodynamically stable Sugar controlled on all her questions were answered Patient to continue on aspirin, Lipitor and metoprolol. Objective - Vital Signs Vital signs: Vital Signs Temp 97.9 F 07/18/20 08:09 Pulse 72 07/18/20 08:18 Resp 16 07/18/20 08:18 BP 118/66 07/18/20 08:09 Pulse Ox 96 07/18/20 08:09 Intake & Output 07/17/20 07/18/20 07/18/20 18:59 06:59 18:59 Intake Total 880 240 Balance 880 240 Intake: Oral 880 240 Other: Voiding Method Toilet Toilet Toilet # Voids 3 3 - Exam GENERAL: The patient is alert and oriented x3, not in any acute distress. Well developed, well nourished. HEENT: Pupils are round and equally reacting to light. EOMI. No scleral icterus. No conjunctival pallor. Normocephalic, atraumatic. No pharyngeal erythema. No thyromegaly. CARDIOVASCULAR: S1 and S2 present. No murmurs, rubs, or gallops. PULMONARY: Chest is clear to auscultation, no wheezing or crackles. ABDOMEN: Soft, nontender, nondistended, normoactive bowel sounds. No palpable organomegaly. MUSCULOSKELETAL: No joint swelling or deformity. EXTREMITIES: No cyanosis, clubbing, or pedal edema. NEUROLOGICAL: Gross neurological examination did not reveal any focal deficits. SKIN: No rashes. no petechiae. - Labs CBC & Chem 7: 07/15/20 00:25 07/15/20 00:25 Labs: Abnormal Lab Results - Last 24 Hours (Table) 07/17/20 07/17/20 07/17/20 Range/Units 16:32 20:07 22:51 POC Glucose (mg/dL) 361 H 319 H 206 H (75-99) mg/dL 07/18/20 Range/Units 06:24 POC Glucose (mg/dL) 153 H (75-99) mg/dL Assessment and Plan Assessment: Assessment and plan Chest pain with anterior/apical ischemia, pending cardiac cath on Sunday. Continue with aspirin and Plavix -Diabetes mellitus, with hyperglycemia, will increase and Levemir from 30 up to 35. Continue with ISS -Hypertension -Osteoarthritis -Sleep apnea on CPAP/BiPAP -Hypothyroidism -Diabetic neuropathy DVT prophylaxis: Subcutaneous heparin GI prophylaxis Pepcid
[2020-07-18 12:14] LABS: Glucose,Whole Blood 233 mg/dL (75-99)
[2020-07-18 16:54] LABS: Glucose,Whole Blood 183 mg/dL (75-99)
[2020-07-18 20:06] LABS: Glucose,Whole Blood 208 mg/dL (75-99)
[2020-07-18] MEDS: SERTRALINE 50 MG TAB PO SCH (21:20)
[2020-07-18] MEDS: predniSONE 50 MG TAB PO SCH (21:20)
[2020-07-18] MEDS: FAMOTIDINE 20 MG TAB PO SCH (21:21)
[2020-07-18] MEDS: ATORVASTATIN 80 MG TAB PO SCH (21:21)
[2020-07-19 06:37] LABS: Glucose,Whole Blood 349 mg/dL (75-99)
[2020-07-19] MEDS: CHOLECALCIFEROL 1,000 UNIT TAB PO SCH (06:45)
[2020-07-19] MEDS: hydroCHLOROthiazide 25 MG TAB PO SCH (06:48)
[2020-07-19] MEDS: diphenhydrAMINE 25 MG CAP PO SCH ×2 (06:48→18:09)
[2020-07-19] MEDS: METOPROLOL TARTRATE 25 MG TAB PO SCH ×2 (06:48→21:03)
[2020-07-19] MEDS: FAMOTIDINE 20 MG TAB PO SCH ×2 (06:48→21:03)
[2020-07-19] MEDS: lisinopriL 10 MG TAB PO SCH (06:49)
[2020-07-19] MEDS: CLOPIDOGREL 75 MG TAB PO SCH (06:49)
[2020-07-19] MEDS: FUROSEMIDE 20 MG TAB PO SCH (06:49)
[2020-07-19] MEDS: CALCIUM CARBONATE 500 MG CHEWABLE PO SCH (06:49)
[2020-07-19] MEDS: LEVOTHYROXINE 50 MCG TAB PO SCH (06:49)
[2020-07-19] MEDS: ASPIRIN 325 MG TAB PO SCH (06:49)
[2020-07-19] MEDS: HEPARIN SODIUM,PORCINE 5,000 UNIT/ML 1 ML VIAL SQ SCH ×2 (06:50→21:02)
[2020-07-19] MEDS: LIOTHYRONINE SODIUM 5 MCG TAB PO SCH (06:50)
[2020-07-19] MEDS: INSULIN ASPART (NovoLOG) 100 UNIT/ML VIAL SQ SCH ×7 (06:53→21:02)
[2020-07-19] MEDS: MULTIVITAMINS, THERA 1 EACH TAB PO SCH (06:56)
[2020-07-19] MEDS: predniSONE 50 MG TAB PO SCH (07:44)
[2020-07-19] MEDS ORDERED: LIDOCAINE 1% INJ 10MG/ML (20 ML MDV) SQ ONE (08:12)
[2020-07-19] MEDS ORDERED: fentaNYL (PF) 50 MCG/ML 2 ML AMP IVP ONE (08:12)
[2020-07-19] MEDS ORDERED: MIDAZOLAM 2 MG/2 ML VIAL IVP ONE (08:12)
[2020-07-19] MEDS ORDERED: IV FLUID CONTINUATION 1,000 ML IV ONE (08:15)
[2020-07-19] MEDS ORDERED: BIVALIRUDIN 250 MG in SODIUM CHLORIDE 0.9% 50 ML IV ONE (08:35)
[2020-07-19] MEDS ORDERED: BIVALIRUDIN BOLUS 250 MG/50 ML IV ONE (08:35)
[2020-07-19] MEDS ORDERED: ENALAPRILAT 1.25 MG/ML 1 ML VIAL IV ONE (08:41)
[2020-07-19] MEDS ORDERED: hydrALAZINE HCL 20 MG/ML 1 ML VIAL IV ONE (08:41)
[2020-07-19] MEDS ORDERED: CLOPIDOGREL 75 MG TAB PO ONE (08:49)
[2020-07-19] MEDS ORDERED: IOPAMIDOL-370 125ML BTL INJ ONE (08:49)
[2020-07-19] MEDS ORDERED: MAG HYDROX/AL HYDROX/SIMETH 30 ML CUP PO PRN (09:03)
[2020-07-19] MEDS ORDERED: RX INFO: IV CONTRAST WAS GIVEN 1 EACH MISC MISCELLANE PRN (09:03)
[2020-07-19] MEDS ORDERED: ZOLPIDEM 5 MG TAB PO PRN (09:03)
[2020-07-19] MEDS ORDERED: ATROPINE SULFATE 0.1 MG/ML 10ML SYRINGE IV PRN (09:03)
[2020-07-19] MEDS ORDERED: NITROGLYCERIN SL TABS 0.4 MG TAB SUBLINGUAL PRN (09:03)
[2020-07-19] MEDS ORDERED: SODIUM CHLORIDE 0.9% 1,000 ML IV SCH (09:15)
[2020-07-19] MEDS ORDERED: hydrALAZINE HCL 20 MG/ML 1 ML VIAL IVP STA (11:03)
[2020-07-19 11:24] VITALS: BMI 45.0
[2020-07-19] MEDS: amLODIPine 5 MG TAB PO SCH (11:26)
--- NOTE | 2020-07-19 11:30 | CC ---
CARDIAC CATHETERIZATION REPORT INDICATION: Chest pain with abnormal stress test. PROCEDURE NOTE: After obtaining informed consent, left heart catheterization and coronary angiogram were performed via the right femoral artery using standard Vini catheters. Patient tolerated the procedure well without any obvious immediate complications. Patient received moderate conscious sedation and total sedation time was 14 minutes. FINDINGS: 1. HEMODYNAMICS: Left ventricular end-diastolic pressure is 12-14 mm. There is no significant gradient across the aortic valve. 2. LEFT VENTRICULOGRAM: Left ventriculogram is not performed #3. 3. ANGIOGRAPHIC DATA: LEFT MAIN CORONARY ARTERY: Left main coronary artery appears slightly calcified but free of significant stenosis. Divides into left anterior descending coronary artery and circumflex coronary artery. 1. Circumflex coronary artery is a nondominant vessel and is free of significant disease. 2. The LAD was previously stented. There are 2 areas of stenosis proximally. There is a 70% stenosis in the mid LAD, there is a 95% stenosis. The area of stenosis within the LAD was long. 3. Right coronary artery is a large dominant vessel, shows some mild atherosclerotic plaque in the proximal portion and the PLV has a patent stent and in the distal RCA there is a focal stenosis that seems to be a 50% to 60^ stenosis. CONCLUSION: 1. Severe stenosis involving LAD. 2. Patent stent within the PLV. 3. Moderate stenosis involving distal RCA. PLAN: Patient will undergo angioplasty of the LAD. She understands risks, benefits. JOVANY / NBAN: [id number] /
--- NOTE | 2020-07-19 11:32 | LTR ---
DATE OF SERVICE: 07/19/2020 RE: Karly Goyal Dear Boris: I performed cardiac catheterization on Karly Goyal. A detailed catheterization note was sent for your records. In brief, the cardiac catheterization revealed severe stenosis involving LAD and patient will undergo angioplasty of the same. Thank you for giving me the privilege of participating in the care of this pleasant lady. Sincerely, MD JOVAYN Madison / KEATON: [id number] /
--- NOTE | 2020-07-19 11:39 | LTR ---
DATE OF SERVICE: 07/19/2020 RE: Karly Goyal Dear Dr. Galeano; Ms. Karly Goyal underwent today heart catheterization by Dr. Acevedo and that revealed critical disease involving the left anterior descending artery. Subsequently, I performed successful angioplasty and stenting of the LAD with good angiographic results and without any complication. Thank you for allowing me to participate in her care and please do not hesitate to call if you have any question or concern. Sincerely, MD JOVANY Cardoso / KEATON: [id number] /
--- NOTE | 2020-07-19 11:39 | PTCA ---
PERCUTANEOUSTRANS CORORONARY ANGIOGRAPHY DATE OF SERVICE: 07/16/2020 PERFORMING PHYSICIAN: Joesph Quevedo MD. PROCEDURE PERFORMED: Successful stenting of the proximal left anterior descending artery using 3.0 x 23 mm Xience HANNAH with an excellent angiographic result and reduction of stenosis from 90% to 0%. INDICATION: This is a very pleasant 70-year-old female patient with coronary artery disease and prior stenting of the LAD, who was experiencing symptoms of chest discomfort and underwent myocardial perfusion imaging and that revealed an anterior ischemia. Because of that, a heart catheterization was advised. APPROACH: Right radial artery. COMPLICATION: None. LEVEL OF SEDATION: Moderate with a sedation length of 18 minutes. PROCEDURE DESCRIPTION: Please refer to the diagnostic heart catheterization was performed by Dr. Acevedo earlier today. Anticoagulation was initiated using Angiomax. Subsequently, I did engage the left main using an XP35 LAD guide. I did wire the LAD using a Whisper wire. Subsequently, balloon angioplasty was performed using 2.5 x 12 mm balloon before I deployed a 3.0 x 23 mm Xience HANNAH where the stent was positioned under fluoroscopy guidance and deployed under its nominal pressure. The following angiogram showed an excellent angiographic results and the procedure was completed without any complication. POST-PROCEDURE MANAGEMENT: 1. Dual anti-platelet therapy. 2. Risk factor modifications. 3. Follow up with the patient. MMODL / IJN: [id number] /
[2020-07-19 13:00] LABS: Glucose,Whole Blood 352 mg/dL (75-99)
[2020-07-19] MEDS: INSULIN DETEMIR (LEVEMIR) 100 UNIT/ML SYR SQ SCH (13:18)
[2020-07-19] MEDS ORDERED: LABETALOL 5 MG/ML VIAL MDV IVP PRN (13:41)
[2020-07-19] MEDS ORDERED: cloNIDine 0.1 MG/24HR PATCH TRANSDERM SCH (14:00)
--- NOTE | 2020-07-19 15:06 | P.PN ---
Subjective Progress Note Date: 07/19/20 Karly Goyal is a 70 yo F with PMH CAD, HTN, HLD, T2DM who presented to the ED complaining of worsening chest pain and hypertension over the ast few weeks. She complains of mid-sternal pressure and pain especially after eating. she has checked her BP at home and readings have been 200s systolic. She denies any recent change to her diet and tries to follow a low salt and heart healthy diet. She has not been checking her sugars regularly at home but notes they have been running very high and are routinely in the 300s. On presentation she was hypertensive to 201/87, WBC 7.1, glucose 398, trop negative, EKG with NSR. 07/16/20 continues to have chest pressure episodes. Evaluated by cardiology and scheduled for stress test, but unfortunately ate breakfast this morning. Hypertensive, sinus rhythm. Patient expresses concern over her being able to get his daily medications, reaching out to family to assist. 07/19/2020 patient has just returned from cardiac catheterization with reported severe stenosis involving LAD, angioplasty with proximal LAD stent. Tolerated procedure well, denies chest pain, palpitations or shortness of breath. Hyperglycemic. Objective - Vital Signs Vital signs: Vital Signs Temp 97.9 F 07/19/20 09:20 Pulse 79 07/19/20 11:05 Resp 18 07/19/20 11:05 BP 177/73 07/19/20 11:05 Pulse Ox 95 07/19/20 11:05 Intake & Output 07/18/20 07/19/20 07/19/20 18:59 06:59 18:59 Intake Total 840 185 Output Total 300 Balance 840 -115 Weight 128.5 kg 128.5 kg Intake: IV 185 Oral 840 0 Output: Urine 300 Other: Voiding Method Toilet Toilet Toilet # Voids 1 0 1 - Exam PHYSICAL EXAM: VITAL SIGNS: As above GENERAL: Lying in bed, no acute distress, HEENT: Conjunctivae normal. eyes normal. Oral mucosa dry NECK: No JVD. No thyroid enlargement. No LNs CARDIOVASCULAR: S1, S2 regular. No murmur RESPIRATION: Breath sounds diminished in the bases. No rhonchi or crackles. No bronchial breathing. ABDOMEN: Soft, nontender . No guarding. no masses palpable. Bowel sounds heard. LEGS: Positive edema, no calf tenderness. PSYCHIATRY: Alert and oriented X3, mood and affect normal. NERVOUS SYSTEM: Cranial N 2-12 grossly normal. Moves all 4 limbs. No focal deficits. Strength and sensation grossly intact.. Skin: Warm and dry, no rash - Labs CBC & Chem 7: 07/15/20 00:25 07/15/20 00:25 Labs: Abnormal Lab Results - Last 24 Hours (Table) 07/18/20 07/18/20 07/19/20 Range/Units 16:40 20:05 06:36 POC Glucose (mg/dL) 183 H 208 H 349 H (75-99) mg/dL Assessment and Plan Assessment: Hypertensive emergency Chest pain with anterior, apical ischemia , status post cardiac cath, successful angioplasty and stent of the proximal LAD. Unstable angina pectoris Diabetes mellitus type 2, hyperglycemic Hypothyroidism Sleep apnea on CPAP Osteoarthritis Plan: Continue on current medication regime ,monitoring and symptomatic treatment. Just returning from [employer], dual antiplatelet treatment. Levemir insulin dose increased, dose recently administered late secondary to procedure. Maintain sliding scale and pre-meal insulin with parameters added. Close m onitoring of Accu-Cheks. Discharge planning in progress for tomorrow pending cardiology clearance and final DC recommendations. The impression and plan of care has been dictated as directed. : I performed a history and examination of this patient, discussed the same with the dictator. I agree with the dictator's note ,documented as a scribe. Any additional findings or plans will be noted.
[2020-07-19 17:46] LABS: Glucose,Whole Blood 297 mg/dL (75-99)
[2020-07-19 20:38] LABS: Glucose,Whole Blood 338 mg/dL (75-99)
[2020-07-19] MEDS: SERTRALINE 50 MG TAB PO SCH (21:03)
[2020-07-19] MEDS: ATORVASTATIN 80 MG TAB PO SCH (21:03)
[2020-07-20 06:02] LABS: Glucose,Whole Blood 236 mg/dL (75-99)
[2020-07-20] MEDS: LEVOTHYROXINE 50 MCG TAB PO SCH (06:26)
[2020-07-20] MEDS: INSULIN DETEMIR (LEVEMIR) 100 UNIT/ML SYR SQ SCH (08:30)
[2020-07-20] MEDS: HEPARIN SODIUM,PORCINE 5,000 UNIT/ML 1 ML VIAL SQ SCH (08:31)
[2020-07-20] MEDS: INSULIN ASPART (NovoLOG) 100 UNIT/ML VIAL SQ SCH ×4 (08:31→13:00)
[2020-07-20] MEDS: ASPIRIN 325 MG TAB PO SCH (08:32)
[2020-07-20] MEDS: METOPROLOL TARTRATE 25 MG TAB PO SCH (08:32)
[2020-07-20] MEDS: hydroCHLOROthiazide 25 MG TAB PO SCH (08:33)
[2020-07-20] MEDS: CLOPIDOGREL 75 MG TAB PO SCH (08:33)
[2020-07-20] MEDS: CALCIUM CARBONATE 500 MG CHEWABLE PO SCH (08:33)
[2020-07-20] MEDS: FAMOTIDINE 20 MG TAB PO SCH (08:33)
[2020-07-20] MEDS: FUROSEMIDE 20 MG TAB PO SCH (08:33)
[2020-07-20] MEDS: lisinopriL 10 MG TAB PO SCH (08:33)
[2020-07-20] MEDS: CHOLECALCIFEROL 1,000 UNIT TAB PO SCH (08:33)
[2020-07-20] MEDS: MULTIVITAMINS, THERA 1 EACH TAB PO SCH (08:34)
[2020-07-20] MEDS: LIOTHYRONINE SODIUM 5 MCG TAB PO SCH (08:34)
[2020-07-20] MEDS: amLODIPine 5 MG TAB PO SCH (08:34)
[2020-07-20 08:51] VITALS: TEMP 98.4
[2020-07-20 10:39] LABS: Basophils # (A) 0.1 k/uL (0-0.2); Basophils % (A) 0 %; Eosinophils # (A) 0.1 k/uL (0-0.7); Eosinophils % (A) 1 %; HCT 36.8 % (34.0-46.0); HGB 11.8 gm/dL (11.4-16.0); Lymphocytes # (A) 2.7 k/uL (1.0-4.8); Lymphocytes % (A) 20 %; MCH 26.6 pg (25.0-35.0); MCHC 32.2 g/dL (31.0-37.0); MCV 82.7 fL (80.0-100.0); Monocytes # (A) 0.9 k/uL (0-1.0); Monocytes % (A) 7 %; Neutrophils # (A) 9.7 k/uL (1.3-7.7); Neutrophils % (A) 71 %; Platelet Count 258 k/uL (150-450); RBC 4.45 m/uL (3.80-5.40); RDW 15.3 % (11.5-15.5); WBC 13.7 k/uL (3.8-10.6)
[2020-07-20 10:51] LABS: Calcium 9.9 mg/dL (8.4-10.2); Potassium 3.8 mmol/L (3.5-5.1)
--- NOTE | 2020-07-20 11:18 | P.DS ---
Providers Date of admission: 07/16/20 13:55 Expected date of discharge: 07/20/20 Attending physician: Boris Galeano MD Consults: 07/15/20 02:31 Consult Physician Urgent Consulting Provider: Darshana Rosas Consult Reason/Comments: Chest pain, cardiac rule out Do you want consulting provider notified?: Yes 07/19/20 09:03 Consult Physician Routine Consulting Provider: [facility] Consult Reason/Comments: Post Interventional patient Do you want consulting provider notified?: Already Contacted Primary care physician: Kylee [facility] Course: Final Diagnoses: Hypertensive emergency Chest pain with anterior, apical ischemia , status post cardiac cath, successful angioplasty and stent of the proximal LAD. Unstable angina pectoris Diabetes mellitus type 2, hyperglycemic Hypothyroidism Sleep apnea on CPAP Osteoarthritis Hospital course:Karly Goyal is a 70 yo F with PMH CAD, HTN, HLD, T2DM who presented to the ED complaining of worsening chest pain and hypertension over the ast few weeks. She complains of mid-sternal pressure and pain especially after eating. she has checked her BP at home and readings have been 200s systolic. She denies any recent change to her diet and tries to follow a low salt and heart healthy diet. She has not been checking her sugars regularly at home but notes they have been running very high and are routinely in the 300s. On presentation she was hypertensive to 201/87, WBC 7.1, glucose 398, trop negative, EKG with NSR. 07/16/20 continues to have chest pressure episodes. Evaluated by cardiology and scheduled for stress test, but unfortunately ate breakfast this morning. Hypertensive, sinus rhythm. Patient expresses concern over her being able to get his daily medications, reaching out to family to assist. 07/19/2020 patient has just returned from cardiac catheterization with reported severe stenosis involving LAD, angioplasty with proximal LAD stent. Tolerated procedure well, denies chest pain, palpitations or shortness of breath. Hyperglycemic. Ambulated, tolerated exertion well, no chest pain, no shortness of breath .Significant clinical improvement. Labs pending. Patient will be discharged home in a stable condition with guarded prognosis pending final DC recommendations, clearance from cardiology. The impression and plan of care has been dictated as directed. : I performed a history and examination of this patient, discussed the same with the dictator. I agree with the dictator's note ,documented as a scribe. Any additional findings or plans will be noted. Patient Condition at Discharge: Stable Plan - Discharge Summary Discharge Rx Participant: No New Discharge Prescriptions: New hydroCHLOROthiazide [Hydrodiuril] 25 mg PO DAILY #30 tab amLODIPine [Norvasc] 5 mg PO DAILY #30 tab lisinopriL [Zestril] 10 mg PO DAILY #30 tab Famotidine [Pepcid] 20 mg PO Q12HR #60 tab Continue Insulin Glargine [Lantus] 60 unit SQ HS Metoprolol Tartrate [Lopressor] 25 mg PO BID Levothyroxine Sodium [Synthroid] 50 mcg PO QAM Nitroglycerin Sl Tabs [Nitrostat] 0.4 mg SUBLINGUAL Q5M PRN #25 tab PRN Reason: Chest Pain Clopidogrel [Plavix] 75 mg PO DAILY Liothyronine Sodium [Cytomel] 5 mcg PO DAILY Sertraline HCl [Zoloft] 50 mg PO HS Furosemide [Lasix] 20 mg PO DAILY Cetirizine HCl [Zyrtec] 10 mg PO DAILY PRN PRN Reason: Allergy Symptoms Insulin Aspart [NovoLOG Flexpen] 6 units SQ AC-TID Insulin Aspart [NovoLOG Flexpen] See Protocol SQ AC-TID Aspirin 325 mg PO DAILY #30 tab Atorvastatin [Lipitor] 80 mg PO HS #30 tab Ondansetron Odt [Zofran ODT] 4 mg PO Q8HR PRN #10 tab PRN Reason: Nausea Docusate [Colace] 100 mg PO BID PRN PRN Reason: Constipation Cholecalciferol [Vitamin D3 (25 Mcg = 1000 Iu)] 5,000 unit PO DAILY Vitamin B Complex 1 tab PO DAILY Calcium Carbonate [Calcium] 600 mg PO DAILY Multivitamins, Thera [Multivitamin (formulary)] 1 tab PO DAILY Nystatin 100,000 Unit/gm Powd [Mycostatin Powder] 1 applic TOPICAL BID PRN PRN Reason: Rash Discontinued lisinopriL [Zestril] 2.5 mg PO DAILY Discharge Medication List Insulin Glargine [Lantus] 60 unit SQ HS 04/26/15 [History] Levothyroxine Sodium [Synthroid] 50 mcg PO QAM 08/21/17 [History] Metoprolol Tartrate [Lopressor] 25 mg PO BID 08/21/17 [History] Nitroglycerin Sl Tabs [Nitrostat] 0.4 mg SUBLINGUAL Q5M PRN #25 tab 09/20/18 [Rx] Clopidogrel [Plavix] 75 mg PO DAILY 05/21/19 [History] Cetirizine HCl [Zyrtec] 10 mg PO DAILY PRN 05/06/20 [History] Furosemide [Lasix] 20 mg PO DAILY 05/06/20 [History] Insulin Aspart [NovoLOG Flexpen] 6 units SQ AC-TID 05/06/20 [History] Insulin Aspart [NovoLOG Flexpen] See Protocol SQ AC-TID 05/06/20 [History] Liothyronine Sodium [Cytomel] 5 mcg PO DAILY 05/06/20 [History] Sertraline HCl [Zoloft] 50 mg PO HS 05/06/20 [History] Aspirin 325 mg PO DAILY #30 tab 05/08/20 [Rx] Atorvastatin [Lipitor] 80 mg PO HS #30 tab 05/08/20 [Rx] Ondansetron Odt [Zofran ODT] 4 mg PO Q8HR PRN #10 tab 05/19/20 [Rx] Calcium Carbonate [Calcium] 600 mg PO DAILY 07/15/20 [History] Cholecalciferol [Vitamin D3 (25 Mcg = 1000 Iu)] 5,000 unit PO DAILY 07/15/20 [History] Docusate [Colace] 100 mg PO BID PRN 07/15/20 [History] Multivitamins, Thera [Multivitamin (formulary)] 1 tab PO DAILY 07/15/20 [History] Nystatin 100,000 Unit/gm Powd [Mycostatin Powder] 1 applic TOPICAL BID PRN 07/15/20 [History] Vitamin B Complex 1 tab PO DAILY 07/15/20 [History] Famotidine [Pepcid] 20 mg PO Q12HR #60 tab 07/20/20 [Rx] amLODIPine [Norvasc] 5 mg PO DAILY #30 tab 07/20/20 [Rx] hydroCHLOROthiazide [Hydrodiuril] 25 mg PO DAILY #30 tab 07/20/20 [Rx] lisinopriL [Zestril] 10 mg PO DAILY #30 tab 07/20/20 [Rx] Follow up Appointment(s)/Referral(s): Boris Galeano MD [STAFF PHYSICIAN] - 3 Days Joshua Acevedo MD [STAFF PHYSICIAN] - 1 Week Ambulatory/Diagnostic Orders: Complete Blood Count w/diff [LAB.AMB] Time Frame: 3 Days, Location: None Selected Patient Instructions/Handouts: Chest Pain (ED) Activity/Diet/Wound Care/Special Instructions: Labs pending. Pending final DC recommendations, clearance per cardiology. Confirm cardiology follow-up appointment prior to discharge. Diet: Consistent carb, heart healthy
[2020-07-20 12:47] LABS: Glucose,Whole Blood 168 mg/dL (75-99)
[2020-07-20 13:30] VITALS: BP 115/68; PULSE 62; RESP 18
--- NOTE | 2020-07-20 13:37 | P.PN ---
Subjective Progress Note Date: 07/20/20 CHIEF COMPLAINT: chest pain HISTORY OF PRESENT ILLNESS: Patient is status post cardiac catheterization with angioplasty and stenting of the LAD. patient denies chest pain or shortness of breath. Patient's blood pressure was significantly elevated but has improved with adjustments to her medication regimen. blood pressure this morning 112/53. Heart rate in the 70s. PHYSICAL EXAM: VITAL SIGNS: Reviewed. GENERAL: Well-developed in no acute distress. NECK: Supple. No JVD or thyromegaly LUNGS: Respirations even and unlabored. Lungs essentially clear to auscultation bilaterally. HEART: Regular rate and rhythm. S1 and S2 heard. EXTREMITIES: Normal range of motion. No clubbing or cyanosis. Peripheral pulses intact. No lower extremity edema ASSESSMENT: 1. Hypertension 2. Coronary artery disease, status post cardiac catheterization with angioplasty and stent placement to the LAD 3. Hyperlipidemia PLAN: Continue current cardiac medications at discharge with the exception of Catap res. Will increase his Lisinopril to 10 mg daily. Patient stable for discharge from a cardiac standpoint. She is to follow up with Dr. Acevedo next week. Nurse practitioner note has been reviewed by physician. Signing provider agrees with the documented findings, assessment, and plan of care. Objective - Vital Signs Vital signs: Vital Signs Temp 98.4 F 07/20/20 08:00 Pulse 76 07/20/20 08:00 Resp 20 07/20/20 08:00 BP 112/54 07/20/20 08:00 Pulse Ox 96 07/20/20 08:00 Intake & Output 07/19/20 07/20/20 07/20/20 18:59 06:59 18:59 Intake Total 1085 600 Output Total 1100 280 501 Balance -15 -280 99 Weight 128.5 kg 128.1 kg Intake: IV 185 Oral 900 600 Output: Urine 1100 280 500 Urine/Stool Mix 1 Other: Voiding Method Toilet Toilet # Voids 1 1 - Labs CBC & Chem 7: 07/20/20 05:46 07/20/20 05:46 Labs: Abnormal Lab Results - Last 24 Hours (Table) 07/19/20 07/19/20 07/20/20 Range/Units 17:44 20:37 05:46 WBC (3.8-10.6) k/uL Neutrophils # (1.3-7.7) k/uL Sodium 136 L (137-145) mmol/L BUN 40 H (7-17) mg/dL Creatinine 1.05 H (0.52-1.04) mg/dL Glucose 199 H (74-99) mg/dL POC Glucose (mg/dL) 297 H 338 H (75-99) mg/dL 07/20/20 07/20/20 07/20/20 Range/Units 05:46 06:00 12:45 WBC 13.7 H (3.8-10.6) k/uL Neutrophils # 9.7 H (1.3-7.7) k/uL Sodium (137-145) mmol/L BUN (7-17) mg/dL Creatinine (0.52-1.04) mg/dL Glucose (74-99) mg/dL POC Glucose (mg/dL) 236 H 168 H (75-99) mg/dL
[2020-07-21] MEDS ORDERED: FAMOTIDINE 20 MG TAB PO SCH (09:00)
== END 2020-07-20 15:57 | disposition home or self-care (01) | DRG 247 ==
LOC: EC 23:42 → 3NCARDOBS 07-15 03:06 → OBSVTOIN 07-16 13:55 → 3SCARD 07-18 08:59
PROVIDERS: ADMIT Family Medicine; ATTEND Family Medicine
PROC: 027034Z Dilation of Coronary Artery, One Artery with Drug-eluting Intraluminal Device, Percutaneous Approach (ICD-10-PCS; principal; 2020-07-19 08:20)
PROC: B2111ZZ Fluoroscopy of Multiple Coronary Arteries using Low Osmolar Contrast (ICD-10-PCS; 2020-07-19 08:20)
PROC: 4A023N7 Measurement of Cardiac Sampling and Pressure, Left Heart, Percutaneous Approach (ICD-10-PCS; 2020-07-19 08:20)
DX: I25.110 Atherosclerotic heart disease of native coronary artery with unstable angina pectoris (principal); I16.1 Hypertensive emergency; F31.10 Bipolar disorder, current episode manic without psychotic features, unspecified; Z68.42 Body mass index [BMI] 45.0-49.9, adult; E11.40 Type 2 diabetes mellitus with diabetic neuropathy, unspecified; Z79.4 Long term (current) use of insulin; E11.65 Type 2 diabetes mellitus with hyperglycemia; I48.0 Paroxysmal atrial fibrillation; E66.01 Morbid (severe) obesity due to excess calories; I10 Essential (primary) hypertension; E78.5 Hyperlipidemia, unspecified; M19.90 Unspecified osteoarthritis, unspecified site; G47.33 Obstructive sleep apnea (adult) (pediatric); M51.36 Other intervertebral disc degeneration, lumbar region; M48.061 Spinal stenosis, lumbar region without neurogenic claudication; E04.1 Nontoxic single thyroid nodule; F41.9 Anxiety disorder, unspecified; E03.9 Hypothyroidism, unspecified; K59.00 Constipation, unspecified; Z71.3 Dietary counseling and surveillance; Z79.890 Hormone replacement therapy; Z79.899 Other long term (current) drug therapy; Z79.02 Long term (current) use of antithrombotics/antiplatelets; Z79.82 Long term (current) use of aspirin; Z95.5 Presence of coronary angioplasty implant and graft; Z86.73 Personal history of transient ischemic attack (TIA), and cerebral infarction without residual deficits; Z87.820 Personal history of traumatic brain injury; Z90.710 Acquired absence of both cervix and uterus; Z98.890 Other specified postprocedural states; Z98.42 Cataract extraction status, left eye; Z98.41 Cataract extraction status, right eye; Z96.1 Presence of intraocular lens; Z91.041 Radiographic dye allergy status; Z91.040 Latex allergy status; Z88.8 Allergy status to other drugs, medicaments and biological substances; Z91.048 Other nonmedicinal substance allergy status; Z80.8 Family history of malignant neoplasm of other organs or systems; Z80.7 Family history of other malignant neoplasms of lymphoid, hematopoietic and related tissues; Z82.49 Family history of ischemic heart disease and other diseases of the circulatory system; Z80.1 Family history of malignant neoplasm of trachea, bronchus and lung; Z83.1 Family history of other infectious and parasitic diseases
CPT/HCPCS: 36415; 71046; 78452; 80048; 80053; 80061; 83735; 83880; 84484; 85025; 85610; 85730; 93005; 93017; 93306; 93458; 99285

== ENCOUNTER 2020-07-28 13:26 | Inpatient (IN) | payer MEDICARE ==
[2020-07-28] MEDS ORDERED: HEPARIN SODIUM,PORCINE 5,000 UNIT/ML 1 ML VIAL IV STA (13:32)
[2020-07-28] MEDS ORDERED: ATORVASTATIN 80 MG TAB PO STA (13:32)
[2020-07-28] MEDS: NITROGLYCERIN OINT 1 INCH/GM PACKET TOPICAL STA ×2 (13:36→13:40)
--- NOTE | 2020-07-28 13:39 | ED ---
General Adult HPI - General Chief complaint: Chest Pain Stated complaint: STEMI Time Seen by Provider: 07/28/20 13:30 Source: patient, EMS, RN notes reviewed, old records reviewed Mode of arrival: EMS Limitations: no limitations - History of Present Illness Initial comments: This is a 70-year-old female with past medical history significant for coronary artery disease and multiple stents. Patient comes into the emergency department today with a 45 minute history of chest discomfort and nausea. Patient states she thinks she might of been a little short of breath as well. EMS stated the patient was very diaphoretic at the scene. Patient denies any fever chills or cough. Patient states her last stent placement was approximate one week ago. Patient states she's had stents placed prior to that as well. Patient states she did take a nitroglycerin but it didn't help. Patient denies any abdominal pain. Patient denies any vomiting. Patient states she does still have the chest pain. Patient denies any lightheadedness or dizziness. - Related Data Home Medications Medication Instructions Recorded Confirmed Insulin Glargine [Lantus] 60 unit SQ HS 04/26/15 07/15/20 Levothyroxine Sodium [Synthroid] 50 mcg PO QAM 08/21/17 07/15/20 Metoprolol Tartrate [Lopressor] 25 mg PO BID 08/21/17 07/15/20 Clopidogrel [Plavix] 75 mg PO DAILY 05/21/19 07/15/20 Cetirizine HCl [Zyrtec] 10 mg PO DAILY PRN 05/06/20 07/15/20 Furosemide [Lasix] 20 mg PO DAILY 05/06/20 07/15/20 Insulin Aspart [NovoLOG Flexpen] 6 units SQ AC-TID 05/06/20 07/15/20 Insulin Aspart [NovoLOG Flexpen] See Protocol SQ AC-TID 05/06/20 07/15/20 Liothyronine Sodium [Cytomel] 5 mcg PO DAILY 05/06/20 07/15/20 Sertraline HCl [Zoloft] 50 mg PO HS 05/06/20 07/15/20 Calcium Carbonate [Calcium] 600 mg PO DAILY 07/15/20 07/15/20 Cholecalciferol [Vitamin D3 (25 5,000 unit PO DAILY 07/15/20 07/15/20 Mcg = 1000 Iu)] Docusate [Colace] 100 mg PO BID PRN 07/15/20 07/15/20 Multivitamins, Thera [Multivitamin 1 tab PO DAILY 07/15/20 07/15/20 (formulary)] Nystatin 100,000 Unit/gm Powd 1 applic TOPICAL BID PRN 07/15/20 07/15/20 [Mycostatin Powder] Vitamin B Complex 1 tab PO DAILY 07/15/20 07/15/20 Previous Rx's Medication Instructions Recorded Nitroglycerin Sl Tabs [Nitrostat] 0.4 mg SUBLINGUAL Q5M PRN #25 tab 09/20/18 Aspirin 325 mg PO DAILY #30 tab 05/08/20 Atorvastatin [Lipitor] 80 mg PO HS #30 tab 05/08/20 Ondansetron Odt [Zofran ODT] 4 mg PO Q8HR PRN #10 tab 05/19/20 Famotidine [Pepcid] 20 mg PO Q12HR #60 tab 07/20/20 amLODIPine [Norvasc] 5 mg PO DAILY #30 tab 07/20/20 hydroCHLOROthiazide [Hydrodiuril] 25 mg PO DAILY #30 tab 07/20/20 lisinopriL [Zestril] 10 mg PO DAILY #30 tab 07/20/20 Allergies Allergy/AdvReac Type Severity Reaction Status Date / Time adhesive tape Allergy blisters Verified 07/28/20 13:30 Iodinated Contrast Media Allergy Swelling, Verified 07/28/20 13:30 [Iodinated Contrast Media - SHORTNESS IV Dye] OF BREATH latex Allergy Rash/Hives Verified 07/28/20 13:30 talc Allergy Rash/Hives Verified 07/28/20 13:30 amlodipine AdvReac ankle Verified 07/28/20 13:30 swelling hydralazine AdvReac Diarrhea Verified 07/28/20 13:30 metal Allergy Rash/Hives Uncoded 07/28/20 13:30 Review of Systems ROS Statement: Those systems with pertinent positive or pertinent negative responses have been documented in the HPI. ROS Other: All systems not noted in ROS Statement are negative. 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 CardiacStent placed June 2020 History of Any Multi-Drug Resistant Organisms: None Reported Past Surgical History: Breast Surgery, Hysterectomy, Orthopedic Surgery, Tubal Ligation Additional Past Surgical History / Comment(s): thyroid biopsies, rt knee arthroscopic surgery, bilateral feet hammer toe repairs, D&C, bilateral CATARACT SURGERY with lens implants, colonoscopies, bilateral breast lumpectomies-benign, tilt table test. Past Anesthesia/Blood Transfusion Reactions: No Reported Reaction, Motion Sickness Additional Past Anesthesia/Blood Transfusion Reaction / Comment(s): LOW BLOOD PRESSURE WITH SURGERY. STATES PROBLEMS WITH MEMORY WITH ANESTHESIA ".No prior blood transfusions Past Psychological History: Anxiety, Bipolar, Depression Smoking Status: Never smoker Past Alcohol Use History: None Reported Past Drug Use History: None Reported - Past Family History Father Family Medical History: Cancer Additional Family Medical History / Comment(s): Father had lymphoma. He had LUNG, BONE, THROAT AND MOUTH CANCER Brother(s) Family Medical History: Myocardial Infarction (NH) Additional Family Medical History / Comment(s): Muscle Disease, Rheumatic fever at 2 years old Mother Family Medical History: Cancer Additional Family Medical History / Comment(s): lung cancer- mother. She at the age of 79yrs from esophageal valencia after radiation-unable to eat. Patient states "mother had aneurysm". General Exam - General Exam Comments Initial Comments: GENERAL: Patient is well-developed and well-nourished. Patient is nontoxic and well-hydrated and is in mild distress. ENT: Neck is soft and supple. No significant lymphadenopathy is noted. Oropharynx is clear. Moist mucous membranes. Neck has full range of motion without eliciting any pain. EYES: The sclera were anicteric and conjunctiva were pink and moist. Extraocular movements were intact and pupils were equal round and reactive to light. Eyelids were unremarkable. PULMONARY: Unlabored respirations. Good breath sounds bilaterally. No audible rales rhonchi or wheezing was noted. CARDIOVASCULAR Patient is bradycardic and regular ABDOMEN: Soft and nontender with normal bowel sounds. SKIN: Skin is clear with no lesions or rashes and otherwise unremarkable. NEUROLOGIC: Patient is alert and oriented x3. Cranial nerves II through XII are grossly intact. Motor and sensory are also intact. Normal speech, volume and content. Symmetrical smile. MUSCULOSKELETAL: Normal extremities with adequate strength and full range of motion. LYMPHATICS: No significant lymphadenopathy is noted PSYCHIATRIC: Normal psychiatric evaluation. Limitations: no limitations Course Vital Signs 07/28/20 13:30 Temperature 97.9 F Pulse Rate 50 L Respiratory 16 Rate Blood Pressure 124/82 O2 Sat by Pulse 98 Oximetry Medical Decision Making - Medical Decision Making EKG shows sinus bradycardia 50 bpm MS interval 286 QRS is 80 QT interval 422 QTC is 384. Patient's EKG shows ST segment elevation in leads V1 through V6. Patient appeared to be having a ST segment elevation NH. I called overhead as a STEMI and I spoke with the raimann machine operator Dr. Lynn immediately. Patient was to be taking to the [facility]. Critical Care Time Critical Care Time: Yes Total Critical Care Time: 35 Disposition Clinical Impression: ST elevation myocardial infarction (STEMI) Disposition: ADMITTED IP TO THIS HOSP Referrals: Kylee Figueroa MD [Primary Care Provider] - 1-2 days Time of Disposition: 13:39
[2020-07-28] MEDS ORDERED: HYDROmorphone 0.5 MG/0.5 ML SYRINGE IVP STA (13:42)
[2020-07-28] MEDS ORDERED: ONDANSETRON 4 MG/2 ML VIAL IVP STA (13:42)
[2020-07-28] MEDS ORDERED: VERAPAMIL 2.5 MG/ML 2 ML AMP ONE (13:42)
[2020-07-28] MEDS ORDERED: LIDOCAINE 1% INJ 10MG/ML (20 ML MDV) ONE (13:42)
[2020-07-28] MEDS ORDERED: HEPARIN SODIUM 1,000 UN/ML (10ML VL) ONE (13:43)
[2020-07-28 13:52] LABS: Basophils # (A) 0.1 k/uL (0-0.2); Basophils % (A) 0 %; Eosinophils # (A) 0.7 k/uL (0-0.7); Eosinophils % (A) 6 %; HCT 37.8 % (34.0-46.0); HGB 12.6 gm/dL (11.4-16.0); Lymphocytes # (A) 3.7 k/uL (1.0-4.8); Lymphocytes % (A) 32 %; MCH 27.1 pg (25.0-35.0); MCHC 33.3 g/dL (31.0-37.0); MCV 81.4 fL (80.0-100.0); Mean Platelet Volume 7.1; Monocytes # (A) 0.6 k/uL (0-1.0); Monocytes % (A) 5 %; Neutrophils # (A) 6.4 k/uL (1.3-7.7); Neutrophils % (A) 55 %; Platelet Count 354 k/uL (150-450); RBC 4.65 m/uL (3.80-5.40); RDW 15.1 % (11.5-15.5); WBC 11.6 k/uL (3.8-10.6)
[2020-07-28] MEDS ORDERED: methylPREDNISolone SOD SUCCI 125 MG/2 ML VIAL ONE (13:56)
[2020-07-28] MEDS ORDERED: diphenhydrAMINE 50 MG/ML 1 ML VIAL ONE (13:56)
[2020-07-28 14:01] LABS: Albumin 3.6 g/dL (3.5-5.0); Calcium 10.6 mg/dL (8.4-10.2); Magnesium 1.9 mg/dL (1.6-2.3); Potassium 4.8 mmol/L (3.5-5.1); Total Bilirubin 0.4 mg/dL (0.2-1.3); Total Protein 6.1 g/dL (6.3-8.2)
[2020-07-28] MEDS ORDERED: MIDAZOLAM 2 MG/2 ML VIAL IVP ONE (14:01)
[2020-07-28] MEDS ORDERED: diphenhydrAMINE 50 MG/ML 1 ML VIAL IVP ONE (14:01)
[2020-07-28] MEDS ORDERED: methylPREDNISolone SOD SUCCI 125 MG/2 ML VIAL IVP ONE (14:01)
[2020-07-28] MEDS ORDERED: LIDOCAINE 1% INJ 10MG/ML (20 ML MDV) SQ ONE (14:02)
[2020-07-28] MEDS ORDERED: IV FLUID CONTINUATION 1,000 ML IV ONE (14:03)
--- NOTE | 2020-07-28 14:03 | P.CRDCN ---
History of Present Illness Consult date: 07/28/20 History of present illness: CHIEF COMPLAINT: Chest pain HISTORY OF PRESENT ILLNESS: 70-year-old female with history of coronary artery disease, diabetes, and hypertension who presented to the emergency room chief complaint of chest pain. Patient was recently hospitalized and underwent cardiac cath with stenting of the proximal LAD and Dr. Quevedo on 07/16/2020. Patient also reports shortness of breath and nausea. She reports taking nitro and aspirin at home without relief. DIAGNOSTICS: EKG reveals sinus bradycardia with ST elevation Chest xray pending at time of dictation Laboratory data pending at time of dictation Current home cardiac medications include lisinopril 10 mg daily, hydrochlorothiazide 25 mg daily, Norvasc 5mg daily, metoprolol 25 mg twice a day, Lasix 20 mg daily, Plavix 75 mg daily, Lipitor 80 mg daily, and aspirin 325mg REVIEW OF SYSTEMS: CONSTITUTIONAL: Denies fever or chills. HEENT: Denies blurred vision, vision changes, or eye pain. Denies hemoptysis CARDIOVASCULAR: Reports chest pain. Denies orthopnea, PND or palpitations RESPIRATORY: Reports shortness of breath. GASTROINTESTINAL: Denies abdominal pain. Reports nausea HEMATOLOGIC: Denies bleeding disorders. GENITOURINARY: Denies any blood in urine. SKIN: Denies pruitis. Denies rash. PHYSICAL EXAM: VITAL SIGNS: Reviewed. GENERAL: Well-developed in no acute distress but appears uncomfortable. HEENT: Head is normocephalic. Pupils are equal, round. Sclerae anicteric. Mucous membranes of the mouth are moist. Neck supple. No JVD or thyromegaly LUNGS: Respirations even and unlabored. Lungs essentially clear to auscultation bilaterally. HEART: Regular rate and rhythm. S1 and S2 distantly heard. ABDOMEN: Soft. Nontender. EXTREMITIES: Normal range of motion. No clubbing or cyanosis. Peripheral pulses intact. No lower extremity edema NEUROLOGIC: Awake and alert. Oriented x 3. ASSESSMENT: 1. STEMI 2. Coronary artery disease with previous stent placement to the proximal LAD, 07/16/2020 3. Hypertension 4. Hyperlipidemia 5. Diabetes mellitus, Type II PLAN: Patient evaluated in the ER by Dr. Lynn. She will undergo urgent cardiac cath with Dr. Lynn. Further recommendations pending Nurse practitioner note has been reviewed by physician. Signing provider agrees with the documented findings, assessment, and plan of care. 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 CardiacStent placed June 2020 History of Any Multi-Drug Resistant Organisms: None Reported Past Surgical History: Breast Surgery, Hysterectomy, Orthopedic Surgery, Tubal Ligation Additional Past Surgical History / Comment(s): thyroid biopsies, rt knee arthroscopic surgery, bilateral feet hammer toe repairs, D&C, bilateral CATARACT SURGERY with lens implants, colonoscopies, bilateral breast lumpectomie s-benign, tilt table test. Past Anesthesia/Blood Transfusion Reactions: No Reported Reaction, Motion Sickness Additional Past Anesthesia/Blood Transfusion Reaction / Comment(s): LOW BLOOD PRESSURE WITH SURGERY. STATES PROBLEMS WITH MEMORY WITH ANESTHESIA ".No prior blood transfusions Past Psychological History: Anxiety, Bipolar, Depression Smoking Status: Never smoker Past Alcohol Use History: None Reported Past Drug Use History: None Reported - Past Family History Father Family Medical History: Cancer Additional Family Medical History / Comment(s): Father had lymphoma. He had LUNG, BONE, THROAT AND MOUTH CANCER Brother(s) Family Medical History: Myocardial Infarction ([place]) Additional Family Medical History / Comment(s): Muscle Disease, Rheumatic fever at 2 years old Mother Family Medical History: Cancer Additional Family Medical History / Comment(s): lung cancer- mother. She at the age of 79yrs from esophageal valencia after radiation-unable to eat. Patient states "mother had aneurysm". Medications and Allergies Home Medications Medication Instructions Recorded Confirmed Type Insulin Glargine [Lantus] 60 unit SQ HS 04/26/15 07/15/20 History Levothyroxine Sodium [Synthroid] 50 mcg PO QAM 08/21/17 07/15/20 History Metoprolol Tartrate [Lopressor] 25 mg PO BID 08/21/17 07/15/20 History Nitroglycerin Sl Tabs [Nitrostat] 0.4 mg SUBLINGUAL Q5M PRN #25 tab 09/20/18 07/15/20 Rx Clopidogrel [Plavix] 75 mg PO DAILY 05/21/19 07/15/20 History Cetirizine HCl [Zyrtec] 10 mg PO DAILY PRN 05/06/20 07/15/20 History Furosemide [Lasix] 20 mg PO DAILY 05/06/20 07/15/20 History Insulin Aspart [NovoLOG Flexpen] 6 units SQ AC-TID 05/06/20 07/15/20 History Insulin Aspart [NovoLOG Flexpen] See Protocol SQ AC-TID 05/06/20 07/15/20 History Liothyronine Sodium [Cytomel] 5 mcg PO DAILY 05/06/20 07/15/20 History Sertraline HCl [Zoloft] 50 mg PO HS 05/06/20 07/15/20 History Aspirin 325 mg PO DAILY #30 tab 05/08/20 07/15/20 Rx Atorvastatin [Lipitor] 80 mg PO HS #30 tab 05/08/20 07/15/20 Rx Ondansetron Odt [Zofran ODT] 4 mg PO Q8HR PRN #10 tab 05/19/20 07/15/20 Rx Calcium Carbonate [Calcium] 600 mg PO DAILY 07/15/20 07/15/20 History Cholecalciferol [Vitamin D3 (25 5,000 unit PO DAILY 07/15/20 07/15/20 History Mcg = 1000 Iu)] Docusate [Colace] 100 mg PO BID PRN 07/15/20 07/15/20 History Multivitamins, Thera [Multivitamin 1 tab PO DAILY 07/15/20 07/15/20 History (formulary)] Nystatin 100,000 Unit/gm Powd 1 applic TOPICAL BID PRN 07/15/20 07/15/20 History [Mycostatin Powder] Vitamin B Complex 1 tab PO DAILY 07/15/20 07/15/20 History Famotidine [Pepcid] 20 mg PO Q12HR #60 tab 07/20/20 Rx amLODIPine [Norvasc] 5 mg PO DAILY #30 tab 07/20/20 Rx hydroCHLOROthiazide [Hydrodiuril] 25 mg PO DAILY #30 tab 07/20/20 Rx lisinopriL [Zestril] 10 mg PO DAILY #30 tab 07/20/20 Rx Allergies Allergy/AdvReac Type Severity Reaction Status Date / Time adhesive tape Allergy blisters Verified 07/28/20 13:41 Iodinated Contrast Media Allergy Swelling, Verified 07/28/20 13:41 [Iodinated Contrast Media - SHORTNESS IV Dye] OF BREATH latex Allergy Rash/Hives Verified 07/28/20 13:41 talc Allergy Rash/Hives Verified 07/28/20 13:41 amlodipine AdvReac ankle Verified 07/28/20 13:41 swelling hydralazine AdvReac Diarrhea Verified 07/28/20 13:41 metal Allergy Rash/Hives Uncoded 07/28/20 13:30 Physical Exam Vitals: Vital Signs Temp Pulse Resp BP Pulse Ox 07/28/20 13:30 97.9 F 50 L 16 124/82 98 Intake and Output 07/27/20 07/28/20 07/28/20 22:59 06:59 14:59 Other: Weight 118.614 kg Results 07/28/20 13:39 CBC 07/28/20 Range/Units 13:39 WBC 11.6 H (3.8-10.6) k/uL RBC 4.65 (3.80-5.40) m/uL Hgb 12.6 (11.4-16.0) gm/dL Hct 37.8 (34.0-46.0) % Plt Count 354 (150-450) k/uL Intake and Output 07/27/20 07/28/20 07/28/20 22:59 06:59 14:59 Other: Weight 118.614 kg Patient Weight 07/29/20 06:59 Weight 118.614 kg 07/28/20 13:39
[2020-07-28 14:07] LABS: INR 0.9 (<1.2); Partial Thromboplastin Time 22.1 sec (22.0-30.0); Prothrombin Time 9.4 sec (9.0-12.0)
[2020-07-28] MEDS: HEPARIN SODIUM 1,000 UN/ML (10ML VL) IV ONE ×2 (14:08→14:24)
[2020-07-28] MEDS: NITROGLYCERIN 1000MCG/10ML SYRINGE INTRACORON ONE ×2 (14:13→14:25)
[2020-07-28] MEDS ORDERED: TIROFIBAN 12.5MG-250ML NS 250 ML IV ONE (14:25)
[2020-07-28] MEDS ORDERED: TIROFIBAN BOLUS 12.5MG/250 ML BAG IV ONE ×2 (14:25)
[2020-07-28] MEDS ORDERED: IOPAMIDOL-370 125ML BTL INJ ONE (14:26)
[2020-07-28] MEDS ORDERED: METOPROLOL TARTRATE 5 MG/5 ML VIAL IVP ONE ×2 (14:31→14:34)
--- NOTE | 2020-07-28 14:33 | XR ---
EXAMINATION TYPE: XR chest 1V DATE OF EXAM: 07/28/2020 COMPARISON: Prior chest x-ray 07/15/2020 HISTORY: Chest pain TECHNIQUE: Single frontal view of the chest is obtained. FINDINGS: There is no focal air space opacity, pleural effusion, or pneumothorax seen. The cardiac silhouette size is within normal limits. The osseous structures are intact. Aorta is dense. There a re overlying leads. Patient is rotated. Right hemidiaphragm is stable and elevated. IMPRESSION: No acute process.
[2020-07-28] MEDS ORDERED: LIDOCAINE 2% SYG (PF) 100 MG/5 ML IV ONE (14:44)
[2020-07-28] MEDS ORDERED: IOPAMIDOL-370 100ML BTL INJ ONE (14:48)
[2020-07-28] MEDS ORDERED: TICAGRELOR 90 MG TAB ONE (14:50)
[2020-07-28 15:14] LABS: Glucose,Whole Blood 219 mg/dL (75-99)
[2020-07-28] MEDS ORDERED: TIROFIBAN 12.5MG-250ML NS 250 ML IV SCH (15:30)
[2020-07-28] MEDS: SODIUM CHLORIDE 0.9% 1,000 ML IV SCH (16:00)
[2020-07-28] MEDS: TIROFIBAN 12.5MG-250ML NS 250 ML IV SCH ×2 (16:01→23:00)
[2020-07-28] MEDS ORDERED: NALOXONE 0.4 MG/ML 1 ML VIAL IV PRN (16:22)
[2020-07-28 17:29] LABS: Glucose,Whole Blood 264 mg/dL (75-99)
--- NOTE | 2020-07-28 17:35 | CC ---
CARDIAC CATHETERIZATION REPORT DATE OF SERVICE: 07/28/2020 PROCEDURES: 1. Left heart catheterization and coronary angiography. 2. Percutaneous transluminal coronary angioplasty and stenting of a totally occluded proximal LAD performed in the setting of an acute ST-elevation myocardial infarction with reperfusion accomplished in 45 minutes. PERFORMED BY: Dr. Nolvia Lynn. Moderate conscious sedation time was 47 minutes. Patient was administered Versed and Dilaudid. Oxygen saturation, hemodynamics and EKG were monitored closely. CLINICAL INFORMATION: Mrs. Karly Goyal is a 70-year-old lady with history of type 2 diabetes, hypertension and hyperlipidemia. She underwent stenting of proximal LAD performed by Dr. Quevedo following a positive stress test on July 19. She had a 23 mm long 3.0 drug-eluting stent deployed. She went home, was feeling well until 9 a.m. this morning, when she started chest pain with diaphoresis, came into the emergency room and had anterior ST elevation. She was seen by me promptly in the ER and advised prompt cardiac catheterization and PCI. I proceeded to perform the procedure expeditiously. I also spoke to Dr. Acevedo, who is her radiation therapy technologist who sees her in the office, and also Dr. Quevedo. PROCEDURE NOTE: Under local anesthesia and strict aseptic precautions, a 6-Brazilian introducer was placed in the right femoral artery. I used a JL3.5 guide catheter of 6-Brazilian caliber and proceeded with PCI of a totally occluded LAD. I then performed coronary angiography with a standard right Vini diagnostic catheter, and the same catheter was used to check LV pressure, but LV gram was not performed. Following the procedure I used a Perclose device to secure hemostasis, and because of some mild oozing applied a FemoStop for 3 hours. Patient tolerated the procedure well. CARDIAC CATHETERIZATION FINDINGS: The left ventricular end-diastolic pressure was about 22 mmHg without any gradient across the aortic valve. CORONARY ANGIOGRAPHY FINDINGS: RIGHT CORONARY ARTERY: Large dominant vessel has no significant disease in the proximal and mid portions. Moderate calcification distally. Before bifurcation there is a 40% narrowing, then it bifurcates into PDA and PLV. PLV was previously stented. The stented area is widely patent. LEFT MAIN CORONARY ARTERY: Short patent vessel, free of significant disease. Bifurcates into LAD and circumflex. The left main coronary artery appears to have some ostial disease also. LEFT ANTERIOR DESCENDING CORONARY ARTERY: This vessel is totally occluded, seen as a stump without any antegrade flow. The occlusion is at the site of previous stenting and also there is some haziness suggestive of thrombus. LEFT POSTERIOR CIRCUMFLEX CORONARY ARTERY: Nondominant, fair caliber, has a mid lesion of about 40%. Gives off a left atrial circumflex branch, and beyond it in the mid to distal segment of the obtuse marginal there is an eccentric 55% lesion and then the vessel becomes tortuous and supplies a fair amount of myocardium. Circumflex therefore has a 40% proximal/mid lesion and a distal lesion of 55%, eccentric in nature. FINAL IMPRESSION: This patient has a total occlusion of LAD, which is the culprit lesion for her stenting. Elevated filling pressures. No gradient across aortic valve. RCA has a 40% lesion. PLV that was stented is patent. Circumflex has 40% proximal and a mid/distal eccentric 55% lesion. Elevated filling pressures were noted. No gradient across the aortic valve. RECOMMENDATIONS: I recommended PCI of LAD and performed this expeditiously. PCI PROCEDURE DETAILS: A JL3.5 guide catheter was used to cannulate the left coronary artery. A Whisper wire was used to cross the lesion. Predilatation was performed with a 2.5 caliber 20 mm Trek balloon. Patient reperfused immediately within 45 minutes of arrival. She continued to have ST elevation, but had total resolution of chest pain. I reviewed the angiograms in different angles and decided to deploy a 3.25 caliber 15 mm Xience stent. The proximal end of the stent was placed at the ostium of the LAD proximal to the previously placed stent and the rest of the stent was within the previous stent. This stent was deployed at 12 atmospheres, a 15 mm long 3.25 caliber Xience. I then deployed an additional Xience stent of 15 mm length but 2.75 caliber distal to the previously placed stent, and the entire 3 mm stent deployed on the was dilated with the same balloon. Excellent angiographic result was achieved without complication. The patient had some junctional rhythm with IVCD. She had complete resolution of chest pain, but ST-segment elevation persisted. Excellent result was achieved. Patient received heparin intravenously 8000 units total. ACT was 286. She also received Aggrastat bolus and drip as per protocol. The results were discussed with the patient as well as her son and she was sent to the ICU in a stable condition on an Aggrastat drip with the understanding that she would have some myocardial damage in view of the [place]. We will obtain echocardiogram tomorrow. Findings and details were discussed at length with the patient as well as her son. JOVANY / KEATON: [id number] /
[2020-07-28] MEDS: INSULIN ASPART (NovoLOG) 100 UNIT/ML VIAL SQ SCH ×3 (17:38→21:34)
[2020-07-28] MEDS ORDERED: DOCUSATE 100 MG CAP PO PRN (18:11)
[2020-07-28] MEDS ORDERED: NITROGLYCERIN SL TABS 0.4 MG TAB SUBLINGUAL PRN (18:11)
[2020-07-28] MEDS ORDERED: ONDANSETRON ODT 4 MG TAB PO PRN (18:11)
[2020-07-28] MEDS ORDERED: LORATADINE 10 MG TAB PO PRN (18:11)
[2020-07-28] MEDS ORDERED: NYSTATIN 100,000 UNIT/GM POWD 15 GM TOPICAL PRN (18:11)
[2020-07-28] MEDS: SERTRALINE 50 MG TAB PO SCH (19:43)
[2020-07-28] MEDS: METOPROLOL TARTRATE 25 MG TAB PO SCH (19:43)
[2020-07-28 21:33] LABS: Glucose,Whole Blood 309 mg/dL (75-99)
[2020-07-28] MEDS: INSULIN DETEMIR (LEVEMIR) 100 UNIT/ML SYR SQ SCH (21:34)
[2020-07-29 05:15] LABS: HCT 34.8 % (34.0-46.0); HGB 11.3 gm/dL (11.4-16.0); MCH 27.1 pg (25.0-35.0); MCHC 32.5 g/dL (31.0-37.0); MCV 83.2 fL (80.0-100.0); Mean Platelet Volume 7.3; Platelet Count 386 k/uL (150-450); RBC 4.18 m/uL (3.80-5.40); RDW 15.2 % (11.5-15.5); WBC 18.8 k/uL (3.8-10.6)
[2020-07-29 05:34] LABS: Calcium 9.9 mg/dL (8.4-10.2); Potassium 5.4 mmol/L (3.5-5.1)
[2020-07-29 06:36] LABS: Glucose,Whole Blood 306 mg/dL (75-99)
[2020-07-29] MEDS: INSULIN ASPART (NovoLOG) 100 UNIT/ML VIAL SQ SCH ×7 (07:02→20:37)
[2020-07-29] MEDS: LEVOTHYROXINE 50 MCG TAB PO SCH (07:03)
[2020-07-29] MEDS: SODIUM CHLORIDE 0.9% 1,000 ML IV SCH (07:04)
[2020-07-29] MEDS: ASPIRIN 81 MG PO SCH (08:48)
[2020-07-29] MEDS: TICAGRELOR 90 MG TAB PO SCH ×2 (08:48→20:16)
[2020-07-29] MEDS: LIOTHYRONINE SODIUM 5 MCG TAB PO SCH (08:49)
[2020-07-29] MEDS: CALCIUM CARBONATE 500 MG CHEWABLE PO SCH (08:49)
[2020-07-29] MEDS: METOPROLOL TARTRATE 25 MG TAB PO SCH ×2 (08:49→20:15)
[2020-07-29] MEDS: MULTIVITAMINS, THERA 1 EACH TAB PO SCH (08:49)
[2020-07-29] MEDS: hydroCHLOROthiazide 25 MG TAB PO SCH (08:49)
[2020-07-29] MEDS: CHOLECALCIFEROL 1,000 UNIT TAB PO SCH (08:49)
[2020-07-29 08:55] LABS: Glucose,Whole Blood 333 mg/dL (75-99)
[2020-07-29] MEDS ORDERED: CLOPIDOGREL 75 MG TAB PO SCH (09:00)
[2020-07-29] MEDS ORDERED: NON FORMULARY DRUG (Vitamin B Complex [Vitamin B Complex] 1 TAB) PO SCH (09:00)
[2020-07-29] MEDS ORDERED: lisinopriL 10 MG TAB PO SCH (09:00)
[2020-07-29] MEDS: INSULIN DETEMIR (LEVEMIR) 100 UNIT/ML SYR SQ SCH ×2 (09:09→20:37)
[2020-07-29] MEDS ORDERED: INSULIN ASPART (NovoLOG) 100 UNIT/ML VIAL SQ ONE (09:37)
[2020-07-29 10:08] LABS: Glucose,Whole Blood 385 mg/dL (75-99)
--- NOTE | 2020-07-29 11:07 | PN ---
PROGRESS NOTE Mrs. Goyal presented with acute anterior ST-elevation [place] yesterday, underwent stenting of LAD. This morning she is comfortable, not in heart failure. Her troponin is quite high. This may also be related to reperfusion. She is going to have an echocardiogram today. I have reviewed her medications. Will make minor adjustments, increase activity and see how she does. I will obtain echocardiogram to assess LV function. Check an additional troponin at 2 pm. Increase the lisinopril and give her 1 dose of Kayexalate for hyperkalemia. Vitals are stable, JVD 1 cm, no carotid bruit. S1-S2 heard normally. No significant murmurs. Lungs are clear. Abdomen and lower extremity exam unchanged. Right groin cath site is clean and dry with a good pulse. Prognosis remains guarded. MMODL / IJN: [id number] /
[2020-07-29] MEDS ORDERED: SODIUM POLYSTYRENE SULFONATE 15 GM/60 ML BOTTLE PO ONE (11:30)
[2020-07-29 11:42] LABS: Glucose,Whole Blood 204 mg/dL (75-99)
--- NOTE | 2020-07-29 11:47 | ECHOF ---
Referral Reason:Post stent MEASUREMENTS -------- HEIGHT: 165.1 cm WEIGHT: 127.0 kg BP: IVSd: 1.3 cm (0.6 - 1.1) LVIDd: 4.3 cm (3.9 - 5.3) LVPWd: 1.5 cm (0.6 - 1.1) IVSs: 1.5 cm LVIDs: 3.2 cm LVPWs: 1.9 cm LA Diam: 4.7 cm (2.7 - 3.8) LAESV Index (A-L): 33.58 ml/m Ao Diam: 3.0 cm (2.0 - 3.7) AV Cusp: 1.9 cm (1.5 - 2.6) LA Diam: 4.2 cm (2.7 - 3.8) MV EXCURSION: 13.883 mm (> 18.000) MV EF SLOPE: 68 mm/s (70 - 150) EPSS: 0.8 cm MV E Rocky: 0.51 m/s MV DecT: 264 ms MV A Rocky: 1.07 m/s MV E/A Ratio: 0.47 RAP: 5.00 mmHg RVSP: 34.27 mmHg FINDINGS -------- The left ventricular size is normal. There is mild concentric left ventricular hypertrophy. Overa ll left ventricular systolic function is mild-moderately impaired with, an EF between 40 - 45 %. Th e diastolic filling pattern indicates impaired relaxation 14.15. Apical anterior LV wall motion is hypokinetic. Apical septum LV wall motion is hypokinetic. The right ventricle is normal in size. LA is midly dilated 29-33ml/m2. The right atrial size is normal. The aortic valve is trileaflet, and appears structurally normal. No aortic stenosis or regurgitation. Mild mitral regurgitation is present. Mild tricuspid regurgitation present. There is mild to moderate pulmonary hypertension. There is no pulmonic regurgitation present. There is no pericardial effusion. CONCLUSIONS -------- 1. The left ventricular size is normal. 2. There is mild concentric left ventricular hypertrophy. 3. Overall left ventricular systolic function is mild-moderately impaired with, an EF between 40 - 45 %. 4. Apical anterior LV wall motion is hypokinetic. 5. Apical septum LV wall motion is hypokinetic. 6. The right ventricle is normal in size. 7. LA is midly dilated 29-33ml/m2. 8. The right atrial size is normal. 9. Mild mitral regurgitation is present. 10. Mild tricuspid regurgitation present. 11. There is mild to moderate pulmonary hypertension. 12. There is no pulmonic regurgitation present. 13. There is no pericardial effusion. STRADDLE BUG DRIVER: Eva Campbell RDCS
[2020-07-29 12:49] LABS: Glucose,Whole Blood 125 mg/dL (75-99)
[2020-07-29 13:33] LABS: Basophils # (A) 0.1 k/uL (0-0.2); Basophils % (A) 0 %; Eosinophils # (A) 0.2 k/uL (0-0.7); Eosinophils % (A) 1 %; HCT 34.3 % (34.0-46.0); Lymphocytes # (A) 2.8 k/uL (1.0-4.8); Lymphocytes % (A) 18 %; MCH 26.7 pg (25.0-35.0); MCHC 32.1 g/dL (31.0-37.0); MCV 83.2 fL (80.0-100.0); Mean Platelet Volume 7.2; Monocytes # (A) 1.1 k/uL (0-1.0); Monocytes % (A) 7 %; Neutrophils # (A) 11.2 k/uL (1.3-7.7); Neutrophils % (A) 73 %; Platelet Count 363 k/uL (150-450); RBC 4.12 m/uL (3.80-5.40); RDW 15.5 % (11.5-15.5); WBC 15.4 k/uL (3.8-10.6)
[2020-07-29 13:45] LABS: Albumin 3.4 g/dL (3.5-5.0); Calcium 10.4 mg/dL (8.4-10.2); Magnesium 1.8 mg/dL (1.6-2.3); Phosphorus 3.6 mg/dL (2.5-4.5); Potassium 4.5 mmol/L (3.5-5.1); Total Bilirubin 0.4 mg/dL (0.2-1.3); Total Protein 5.9 g/dL (6.3-8.2)
[2020-07-29 14:01] LABS: Glucose,Whole Blood 161 mg/dL (75-99)
[2020-07-29 17:00] LABS: Glucose,Whole Blood 177 mg/dL (75-99)
[2020-07-29 18:48] LABS: Hemoglobin A1C 10.4 % (4.0-6.0)
[2020-07-29] MEDS: SERTRALINE 50 MG TAB PO SCH (20:16)
[2020-07-29] MEDS: lisinopriL 10 MG TAB PO SCH (20:16)
[2020-07-29] MEDS: ATORVASTATIN 80 MG TAB PO SCH (20:16)
[2020-07-29 20:20] LABS: Glucose,Whole Blood 180 mg/dL (75-99)
--- NOTE | 2020-07-29 22:53 | P.HPIM ---
History of Present Illness H&P Date: 07/29/20 Chief Complaint: chest pain Karly Goyal is a 70 yo F with PMH of CAD, HTN, HLD, T2DM who presented to the ED complaining of chest pain. She states that her sugars had been running in the 400-500s and she had been having some nausea and vomiting, she bent over and started to experience severe substernal chest pain and pressure. she endorses shortness of breath as well. Pt was just admitted approximately 3 weeks ago with the same symptoms and underwent coronary angiography at that time which revealed severe LAD stenosis and a proximal stent was placed. On arrival pt hypertensive, EKG with STEMI, initial troponin 10.9., peaking at 114. Review of Systems All systems: negative Constitutional: Denies chills, Denies fever Eyes: denies blurred vision, denies pain Ears, nose, mouth and throat: Denies headache, Denies sore throat Cardiovascular: Reports chest pain, Reports shortness of breath Respiratory: Denies cough Gastrointestinal: Denies abdominal pain, Denies diarrhea, Denies nausea, Denies vomiting Genitourinary: Denies dysuria, Denies hematuria Musculoskeletal: Denies myalgias Integumentary: Denies pruritus, Denies rash Neurological: Denies numbness, Denies weakness Psychiatric: Denies anxiety, Denies depression Endocrine: Denies fatigue, Denies weight change Past Medical History Past Medical History: Coronary Artery Disease (CAD), CVA/TIA, Diabetes Mellitus, Eye Disorder, Hypertension, Osteoarthritis (OA), Sleep Apnea/CPAP/BIPAP, Thyroid Disorder Additional Past Medical History / Comment(s): Coronary artery disease, details as discussed above, 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 CardiacStent placed June 2020 History of Any Multi-Drug Resistant Organisms: None Reported Past Surgical History: Breast Surgery, Heart Catheterization With Stent, Hysterectomy, Orthopedic Surgery, Tubal Ligation Additional Past Surgical History / Comment(s): thyroid biopsies, rt knee arthroscopic surgery, bilateral feet hammer toe repairs, D&C, bilateral CATARACT SURGERY with lens implants, colonoscopies, bilateral breast lumpectomies-benign, tilt table test. Past Anesthesia/Blood Transfusion Reactions: No Reported Reaction, Motion Sickness Additional Past Anesthesia/Blood Transfusion Reaction / Comment(s): LOW BLOOD PRESSURE WITH SURGERY. STATES PROBLEMS WITH MEMORY WITH ANESTHESIA ".No prior blood transfusions Date of Last Stent Placement:: t Smoking Status: Never smoker - Past Family History Father Family Medical History: Cancer Additional Family Medical History / Comment(s): Father had lymphoma. He had LISA G, BONE, THROAT AND MOUTH CANCER Brother(s) Family Medical History: Myocardial Infarction ([place]) Additional Family Medical History / Comment(s): Muscle Disease, Rheumatic fever at 2 years old Mother Family Medical History: Cancer Additional Family Medical History / Comment(s): lung cancer- mother. She at the age of 79yrs from esophageal valencia after radiation-unable to eat. Patient states "mother had aneurysm". Medications and Allergies Home Medications Medication Instructions Recorded Confirmed Type Insulin Glargine [Lantus] 60 unit SQ HS 04/26/15 07/28/20 History Levothyroxine Sodium [Synthroid] 50 mcg PO QAM 08/21/17 07/28/20 History Metoprolol Tartrate [Lopressor] 25 mg PO BID 08/21/17 07/28/20 History Nitroglycerin Sl Tabs [Nitrostat] 0.4 mg SUBLINGUAL Q5M PRN #25 tab 09/20/18 07/28/20 Rx Clopidogrel [Plavix] 75 mg PO DAILY 05/21/19 07/28/20 History Cetirizine HCl [Zyrtec] 10 mg PO DAILY PRN 05/06/20 07/28/20 History Insulin Aspart [NovoLOG Flexpen] 6 units SQ AC-TID 05/06/20 07/28/20 History Insulin Aspart [NovoLOG Flexpen] See Protocol SQ AC-TID 05/06/20 07/28/20 History Liothyronine Sodium [Cytomel] 5 mcg PO DAILY 05/06/20 07/28/20 History Sertraline HCl [Zoloft] 50 mg PO HS 05/06/20 07/28/20 History Aspirin 325 mg PO DAILY #30 tab 05/08/20 07/28/20 Rx Atorvastatin [Lipitor] 80 mg PO HS #30 tab 05/08/20 07/28/20 Rx Ondansetron Odt [Zofran ODT] 4 mg PO Q8HR PRN #10 tab 05/19/20 07/28/20 Rx Calcium Carbonate [Calcium] 600 mg PO DAILY 07/15/20 07/28/20 History Cholecalciferol [Vitamin D3 (25 5,000 unit PO DAILY 07/15/20 07/28/20 History Mcg = 1000 Iu)] Docusate [Colace] 100 mg PO BID PRN 07/15/20 07/28/20 History Multivitamins, Thera [Multivitamin 1 tab PO DAILY 07/15/20 07/28/20 History (formulary)] Nystatin 100,000 Unit/gm Powd 1 applic TOPICAL BID PRN 07/15/20 07/28/20 History [Mycostatin Powder] Vitamin B Complex 1 tab PO DAILY 07/15/20 07/28/20 History hydroCHLOROthiazide [Hydrodiuril] 25 mg PO DAILY #30 tab 07/20/20 07/28/20 Rx lisinopriL [Zestril] 10 mg PO DAILY #30 tab 07/20/20 07/28/20 Rx Allergies Allergy/AdvReac Type Severity Reaction Status Date / Time adhesive tape Allergy blisters Verified 07/28/20 14:18 Iodinated Contrast Media Allergy Swelling, Verified 07/28/20 14:18 [Iodinated Contrast Media - SHORTNESS IV Dye] OF BREATH latex Allergy Rash/Hives Verified 07/28/20 14:18 talc Allergy Rash/Hives Verified 07/28/20 14:18 amlodipine AdvReac ankle Verified 07/28/20 14:18 swelling hydralazine AdvReac Diarrhea Verified 07/28/20 14:18 metal Allergy Rash/Hives Uncoded 07/28/20 13:30 Physical Exam Vitals: Vital Signs Temp Pulse Resp BP Pulse Ox 07/29/20 19:00 74 12 151/71 96 07/29/20 18:00 73 11 L 154/72 96 07/29/20 17:00 73 12 140/51 91 L 07/29/20 16:45 71 13 128/50 97 07/29/20 16:30 69 14 120/58 94 L 07/29/20 16:15 69 11 L 137/120 97 07/29/20 16:00 98 F 82 14 113/83 98 07/29/20 15:45 72 13 120/43 96 07/29/20 15:30 74 14 136/76 97 07/29/20 15:15 74 21 145/69 96 07/29/20 15:00 68 19 140/71 95 07/29/20 14:45 70 16 119/62 95 07/29/20 14:30 74 14 128/59 95 07/29/20 14:15 71 16 128/52 95 07/29/20 14:00 70 14 121/54 98 07/29/20 13:45 70 18 118/65 94 L 07/29/20 13:30 76 30 H 110/73 95 07/29/20 13:15 70 18 117/70 94 L 07/29/20 13:00 72 17 116/78 98 07/29/20 12:45 70 33 H 109/58 97 07/29/20 12:30 75 9 L 121/44 97 07/29/20 12:15 82 13 121/44 98 07/29/20 12:00 84 17 141/56 96 07/29/20 11:45 85 12 141/56 98 07/29/20 11:30 66 14 141/56 95 07/29/20 11:15 70 4 L 141/56 96 07/29/20 11:00 74 12 146/58 96 07/29/20 10:45 83 4 L 146/58 97 07/29/20 10:30 75 5 L 146/58 96 07/29/20 10:15 77 0 L 146/58 95 07/29/20 10:00 78 14 128/57 96 07/29/20 09:00 75 14 135/90 97 07/29/20 08:00 97.9 F 85 12 134/52 96 07/29/20 07:00 71 17 146/59 97 07/29/20 06:00 89 13 129/68 94 L 07/29/20 05:00 68 9 L 154/74 95 07/29/20 04:00 97.9 F 86 11 L 141/61 97 07/29/20 03:00 82 18 158/52 95 07/29/20 02:00 87 16 162/66 94 L 07/29/20 01:00 80 15 148/84 95 07/29/20 00:34 93 35 H 07/29/20 00:00 98.1 F 75 16 161/89 96 07/28/20 23:00 75 11 L 155/71 95 Intake and Output 07/29/20 07/29/20 07/29/20 06:59 14:59 22:59 Intake Total 525 390 360 Output Total 1500 400 200 Balance -975 -10 160 Intake: IV 525 150 Sodium Chloride 0.9% 1, 525 150 000 ml @ 75 mls/hr IV . [id number] [facility] Rx#:[id number] Oral 240 240 Tube Feeding 120 Output: Urine 1500 400 200 Other: Voiding Method Bedpan Bedpan Weight 132.222 kg General: well nourished, well developed, NAD. Vitals reviewed Eyes: PERRL, EOMI, conjunctiva normal HENT: normocephalic, mucus membranes moist Neck: supple, no JVD Lungs: normal respiratory effort, no wheezes or rales CV: Regular rate and rhythm, no murmur. Peripheral pulses 2+ Abdomen: soft, nondistended, no organomegaly Lymph: no cervical or axillary LAD Skin: warm and dry. Neuro: A&Ox3, normal mood and affect Results CBC & Chem 7: 07/29/20 13:09 07/29/20 13:09 Labs: Abnormal Lab Results - Last 24 Hours (Table) 07/29/20 07/29/20 07/29/20 Range/Units 04:44 04:44 04:44 WBC 18.8 H (3.8-10.6) k/uL Hgb 11.3 L (11.4-16.0) gm/dL Neutrophils # (1.3-7.7) k/uL Monocytes # (0-1.0) k/uL Sodium 133 L (137-145) mmol/L Potassium 5.4 H (3.5-5.1) mmol/L Chloride (98-107) mmol/L BUN 27 H (7-17) mg/dL Creatinine (0.52-1.04) mg/dL Glucose 296 H (74-99) mg/dL POC Glucose (mg/dL) (75-99) mg/dL Hemoglobin A1c (4.0-6.0) % Calcium (8.4-10.2) mg/dL AST (14-36) U/L ALT (4-34) U/L Troponin I 114.000 H* (0.000-0.034) ng/mL Total Protein (6.3-8.2) g/dL Albumin (3.5-5.0) g/dL 07/29/20 07/29/20 07/29/20 Range/Units 04:44 06:34 08:53 WBC (3.8-10.6) k/uL Hgb (11.4-16.0) gm/dL Neutrophils # (1.3-7.7) k/uL Monocytes # (0-1.0) k/uL Sodium (137-145) mmol/L Potassium (3.5-5.1) mmol/L Chloride (98-107) mmol/L BUN (7-17) mg/dL Creatinine (0.52-1.04) mg/dL Glucose (74-99) mg/dL POC Glucose (mg/dL) 306 H 333 H (75-99) mg/dL Hemoglobin A1c 10.4 H (4.0-6.0) % Calcium (8.4-10.2) mg/dL AST (14-36) U/L ALT (4-34) U/L Troponin I (0.000-0.034) ng/mL Total Protein (6.3-8.2) g/dL Albumin (3.5-5.0) g/dL 07/29/20 07/29/20 07/29/20 Range/Units 10:07 11:39 12:38 WBC (3.8-10.6) k/uL Hgb (11.4-16.0) gm/dL Neutrophils # (1.3-7.7) k/uL Monocytes # (0-1.0) k/uL Sodium (137-145) mmol/L Potassium (3.5-5.1) mmol/L Chloride (98-107) mmol/L BUN (7-17) mg/dL Creatinine (0.52-1.04) mg/dL Glucose (74-99) mg/dL POC Glucose (mg/dL) 385 H 204 H 125 H (75-99) mg/dL Hemoglobin A1c (4.0-6.0) % Calcium (8.4-10.2) mg/dL AST (14-36) U/L ALT (4-34) U/L Troponin I (0.000-0.034) ng/mL Total Protein (6.3-8.2) g/dL Albumin (3.5-5.0) g/dL 07/29/20 07/29/20 07/29/20 Range/Units 13:09 13:09 13:09 WBC 15.4 H (3.8-10.6) k/uL Hgb 11.0 L (11.4-16.0) gm/dL Neutrophils # 11.2 H (1.3-7.7) k/uL Monocytes # 1.1 H (0-1.0) k/uL Sodium (137-145) mmol/L Potassium (3.5-5.1) mmol/L Chloride 108 H (98-107) mmol/L BUN 29 H (7-17) mg/dL Creatinine 1.21 H (0.52-1.04) mg/dL Glucose 108 H (74-99) mg/dL POC Glucose (mg/dL) (75-99) mg/dL Hemoglobin A1c (4.0-6.0) % Calcium 10.4 H (8.4-10.2) mg/dL AST 268 H (14-36) U/L ALT 82 H (4-34) U/L Troponin I 66.100 H* (0.000-0.034) ng/mL Total Protein 5.9 L (6.3-8.2) g/dL Albumin 3.4 L (3.5-5.0) g/dL 07/29/20 07/29/20 07/29/20 Range/Units 14:00 16:59 20:19 WBC (3.8-10.6) k/uL Hgb (11.4-16.0) gm/dL Neutrophils # (1.3-7.7) k/uL Monocytes # (0-1.0) k/uL Sodium (137-145) mmol/L Potassium (3.5-5.1) mmol/L Chloride (98-107) mmol/L BUN (7-17) mg/dL Creatinine (0.52-1.04) mg/dL Glucose (74-99) mg/dL POC Glucose (mg/dL) 161 H 177 H 180 H (75-99) mg/dL Hemoglobin A1c (4.0-6.0) % Calcium (8.4-10.2) mg/dL AST (14-36) U/L ALT (4-34) U/L Troponin I (0.000-0.034) ng/mL Total Protein (6.3-8.2) g/dL Albumin (3.5-5.0) g/dL Thrombosis Risk Factor Assmnt - Choose All That Apply Any of the Below Risk Factors Present?: Yes Each Factor Represents 1 point: Acute [place], Medical pt on bed rest, Obesity (BMI >25), Swollen legs (current) Each Risk Factor Represents 2 Points: Age 61-74 years, Patient confined to bed Thrombosis Risk Factor Assessment Total Risk Factor Score: 8 Thrombosis Risk Factor Assessment Level: High Risk Assessment and Plan (1) Hyperlipemia Current Visit: Yes Status: Acute Code(s): E78.5 - HYPERLIPIDEMIA, UNSPECIFIED SNOMED Code(s): 33585080 (2) ST elevation myocardial infarction (STEMI) Current Visit: Yes Status: Acute Code(s): I21.3 - ST ELEVATION (STEMI) MYOCARDIAL INFARCTION OF UNSP SITE SNOMED Code(s): 77705830 (3) Coronary artery disease Current Visit: No Status: Acute Code(s): I25.10 - ATHSCL HEART DISEASE OF [place] CORONARY ARTERY W/O ANG PCTRS SNOMED Code(s): 91808991 (4) Type 2 diabetes mellitus Current Visit: No Status: Acute Code(s): E11.9 - TYPE 2 DIABETES MELLITUS WITHOUT COMPLICATIONS SNOMED Code(s): 03791941 (5) Unstable angina pectoris Current Visit: No Status: Acute Code(s): I20.0 - UNSTABLE ANGINA SNOMED Code(s): 9582405 Plan: 1. STEMI s/p PCI of proximal LAD. Pt improved today, maximize medical therapy with ASA, lipitor, metoprolol, lisinopril 2. T2DM. Continue with lantus 60 units daily. Increase mealtime insulin to 12 units tid ac. continue sliding scale 3. Hypothyroid. Continue synthroid
[2020-07-30 02:31] LABS: Glucose,Whole Blood 96 mg/dL (75-99)
[2020-07-30 06:59] LABS: Glucose,Whole Blood 144 mg/dL (75-99)
[2020-07-30] MEDS: LEVOTHYROXINE 50 MCG TAB PO SCH (07:10)
[2020-07-30] MEDS: INSULIN ASPART (NovoLOG) 100 UNIT/ML VIAL SQ SCH ×7 (07:12→21:00)
[2020-07-30] MEDS: INSULIN DETEMIR (LEVEMIR) 100 UNIT/ML SYR SQ SCH ×2 (07:12→21:00)
[2020-07-30 07:45] LABS: HGB 10.3 gm/dL (11.4-16.0); MCHC 32.1 g/dL (31.0-37.0); MCV 83.9 fL (80.0-100.0); Mean Platelet Volume 7.2; Platelet Count 292 k/uL (150-450); RBC 3.82 m/uL (3.80-5.40); RDW 15.8 % (11.5-15.5); WBC 14.8 k/uL (3.8-10.6)
[2020-07-30 07:54] LABS: Calcium 9.9 mg/dL (8.4-10.2); Potassium 4.5 mmol/L (3.5-5.1)
[2020-07-30] MEDS: CHOLECALCIFEROL 1,000 UNIT TAB PO SCH (07:58)
[2020-07-30] MEDS: hydroCHLOROthiazide 25 MG TAB PO SCH (07:59)
[2020-07-30] MEDS: TICAGRELOR 90 MG TAB PO SCH ×2 (08:00→21:00)
[2020-07-30] MEDS: lisinopriL 10 MG TAB PO SCH ×2 (08:00→21:00)
[2020-07-30] MEDS: ASPIRIN 81 MG PO SCH (08:00)
[2020-07-30] MEDS: LIOTHYRONINE SODIUM 5 MCG TAB PO SCH (08:00)
[2020-07-30] MEDS: MULTIVITAMINS, THERA 1 EACH TAB PO SCH (08:01)
[2020-07-30] MEDS: METOPROLOL TARTRATE 25 MG TAB PO SCH ×3 (08:01→21:00)
[2020-07-30] MEDS: CALCIUM CARBONATE 500 MG CHEWABLE PO SCH (08:01)
[2020-07-30 10:04] VITALS: BMI 47.0
[2020-07-30 11:58] LABS: Glucose,Whole Blood 156 mg/dL (75-99)
[2020-07-30] MEDS: TIROFIBAN 12.5MG-250ML NS 250 ML IV SCH (13:14)
--- NOTE | 2020-07-30 14:07 | PN ---
PROGRESS NOTE Mrs. Goyal is in sinus rhythm, resting comfortably. She had an anterior ID, underwent stenting of LAD, ejection fraction in at 40%-45% range with anteroapical hypokinesia. She is doing well. I reviewed her medications, advised to continue current medications, increase activity and move her to selective care and possible discharge in the next 48 hours. Vitals are stable, JVD 1 cm, no carotid bruit, S1-S2 heard normally. Distant heart sounds. Lungs are clear. Abdomen and lower extremity exam unchanged. Right groin is clean and dry with a good pulse. MMODL / IJN: [id number] /
[2020-07-30 16:46] LABS: Glucose,Whole Blood 135 mg/dL (75-99)
[2020-07-30 20:26] LABS: Glucose,Whole Blood 220 mg/dL (75-99)
[2020-07-30] MEDS: SERTRALINE 50 MG TAB PO SCH (21:00)
[2020-07-30] MEDS: ATORVASTATIN 80 MG TAB PO SCH (21:00)
--- NOTE | 2020-07-30 21:26 | P.PN ---
Subjective Progress Note Date: 07/30/20 Principal diagnosis: chest pain Karly Goyal is a 70 yo F with PMH of CAD, HTN, HLD, T2DM who presented to the ED complaining of chest pain. She states that her sugars had been running in the 400-500s and she had been having some nausea and vomiting, she bent over and started to experience severe substernal chest pain and pressure. she endorses shortness of breath as well. Pt was just admitted approximately 3 weeks ago with the same symptoms and underwent coronary angiography at that time which revealed severe LAD stenosis and a proximal stent was placed. On arrival pt hypertensive, EKG with STEMI, initial troponin 10.9., peaking at 114. 9/4. She is feeling well today, denies chest pain, shortness of breath. Blood glucose under improved control with increased mealtime insulin. Echo yesterday showed LVEF 40-45%. Objective - Vital Signs Vital signs: Vital Signs Temp 98.3 F 07/30/20 20:24 Pulse 73 07/30/20 20:24 Resp 18 07/30/20 20:24 BP 184/77 07/30/20 20:24 Pulse Ox 100 07/30/20 20:24 Intake & Output 07/30/20 07/30/20 07/31/20 06:59 18:59 06:59 Output Total 950 1600 Balance -950 -1600 Weight 132.2 kg 132.2 kg Output: Urine 950 1600 Other: Voiding Method Bedpan # Bowel Movements 1 - Exam General: well nourished, well developed, NAD. Vitals reviewed Lungs: normal respiratory effort, no wheezes or rales CV: Regular rate and rhythm, no murmur. Peripheral pulses 2+ Abdomen: soft, nondistended, no organomegaly Skin: warm and dry. - Labs CBC & Chem 7: 07/30/20 07:26 07/30/20 07:26 Labs: Abnormal Lab Results - Last 24 Hours (Table) 07/30/20 07/30/20 07/30/20 Range/Units 06:52 07:26 07:26 WBC 14.8 H (3.8-10.6) k/uL Hgb 10.3 L (11.4-16.0) gm/dL Hct 32.0 L (34.0-46.0) % RDW 15.8 H (11.5-15.5) % Chloride 108 H (98-107) mmol/L BUN 24 H (7-17) mg/dL Glucose 123 H (74-99) mg/dL POC Glucose (mg/dL) 144 H (75-99) mg/dL 07/30/20 07/30/20 07/30/20 Range/Units 11:57 16:45 20:13 WBC (3.8-10.6) k/uL Hgb (11.4-16.0) gm/dL Hct (34.0-46.0) % RDW (11.5-15.5) % Chloride (98-107) mmol/L BUN (7-17) mg/dL Glucose (74-99) mg/dL POC Glucose (mg/dL) 156 H 135 H 220 H (75-99) mg/dL Assessment and Plan (1) Hyperlipemia Current Visit: Yes Status: Acute Code(s): E78.5 - HYPERLIPIDEMIA, UNSPECIFIED SNOMED Code(s): 37064846 (2) ST elevation myocardial infarction (STEMI) Current Visit: Yes Status: Acute Code(s): I21.3 - ST ELEVATION (STEMI) MYOCARDIAL INFARCTION OF UNSP SITE SNOMED Code(s): 39029015 (3) Coronary artery disease Current Visit: No Status: Acute Code(s): I25.10 - ATHSCL HEART DISEASE OF [place] CORONARY ARTERY W/O ANG PCTRS SNOMED Code(s): 51200573 (4) Type 2 diabetes mellitus Current Visit: No Status: Acute Code(s): E11.9 - TYPE 2 DIABETES MELLITUS WITHOUT COMPLICATIONS SNOMED Code(s): 14769935 (5) Unstable angina pectoris Current Visit: No Status: Acute Code(s): I20.0 - UNSTABLE ANGINA SNOMED Code(s): 2116706 Plan: Continue with current medical management, insulin at current dose and cardiac medications. Transfer out of ICU, discharge planning in progress
[2020-07-31] MEDS: LEVOTHYROXINE 50 MCG TAB PO SCH (06:42)
[2020-07-31] MEDS: INSULIN ASPART (NovoLOG) 100 UNIT/ML VIAL SQ SCH ×7 (06:43→21:08)
[2020-07-31 06:45] LABS: Glucose,Whole Blood 117 mg/dL (75-99)
[2020-07-31] MEDS: hydroCHLOROthiazide 25 MG TAB PO SCH (08:19)
[2020-07-31] MEDS: CALCIUM CARBONATE 500 MG CHEWABLE PO SCH (08:19)
[2020-07-31] MEDS: CHOLECALCIFEROL 1,000 UNIT TAB PO SCH (08:19)
[2020-07-31] MEDS: lisinopriL 10 MG TAB PO SCH ×2 (08:19→21:11)
[2020-07-31] MEDS: ASPIRIN 81 MG PO SCH (08:19)
[2020-07-31] MEDS: TICAGRELOR 90 MG TAB PO SCH ×2 (08:19→21:11)
[2020-07-31] MEDS: METOPROLOL TARTRATE 25 MG TAB PO SCH ×3 (08:19→21:11)
[2020-07-31] MEDS: MULTIVITAMINS, THERA 1 EACH TAB PO SCH (08:19)
[2020-07-31 11:00] LABS: HCT 28.8 % (34.0-46.0); HGB 9.3 gm/dL (11.4-16.0); MCH 27.1 pg (25.0-35.0); MCHC 32.2 g/dL (31.0-37.0); MCV 84.4 fL (80.0-100.0); Mean Platelet Volume 7.2; Platelet Count 261 k/uL (150-450); RBC 3.41 m/uL (3.80-5.40); RDW 15.8 % (11.5-15.5); WBC 13.6 k/uL (3.8-10.6)
[2020-07-31 12:33] LABS: Glucose,Whole Blood 110 mg/dL (75-99)
--- NOTE | 2020-07-31 12:52 | PN ---
PROGRESS NOTE Karly is a 70-year-old lady that is admitted to hospital following an acute ST-segment elevation [place] anteriorly. She underwent cardiac catheterization and angioplasty of her LAD on July 19. This morning the patient is doing well. Denies any chest pain or difficulty in breathing. She is ambulating without any issues. An echocardiogram on this admission revealed an ejection fraction of 40-45%. with apical hypokinesis. Her ejection fraction prior to previous angioplasty was 53%. EXAM: Comfortable at rest. Vital signs are stable. Chest exam reveals good air entry bilaterally. Heart exam reveals first and second heart sounds. No gallop. Exam of extremities did not reveal any edema. Peripheral pulses are felt. LABS: Show a hemoglobin of 9.3, white cell count is 13.6. The patient is afebrile. Current medications include aspirin, Lipitor, Zestril, Lopressor and Brilinta. ASSESSMENT: 1. Acute anterior wall myocardial infarction in a patient who had recent angioplasty of the left anterior descending. 2. Ischemic cardiomyopathy. PLAN: Patient is doing well. We will ambulate her and discharge her home tomorrow. MMODL / IJN: [id number] /
[2020-07-31 16:45] LABS: Glucose,Whole Blood 133 mg/dL (75-99)
[2020-07-31] MEDS: LIOTHYRONINE SODIUM 5 MCG TAB PO SCH (16:55)
--- NOTE | 2020-07-31 19:39 | P.PN ---
Subjective This is a pleasant 70 years old female with multiple medical problems was admitted because of chest pain and found to have STEMI, she underwent cardiac cath and performed critical disease in the LAD, left anterior descending artery, status post angioplasty. Patient is currently on aspirin and Brillinta , also she is on metoprolol starting and lisinopril, patient is doing well with no chest pain or dyspnea, although feels somewhat weak but no specific complaint. She is hemodynamically stable. She has mild leukocytosis and therefore enzymes slightly elevated. Cardiology team on the case and they recommended possible discharge tomorrow from their perspective Objective - Vital Signs Vital signs: Vital Signs Temp 98.2 F 07/31/20 03:51 Pulse 75 07/31/20 16:00 Resp 16 07/31/20 16:00 BP 142/65 07/31/20 16:00 Pulse Ox 100 07/31/20 16:00 Intake & Output 07/31/20 07/31/20 08/01/20 06:59 18:59 06:59 Intake Total 120 472 Balance 120 472 Weight 131.9 kg Intake: Oral 120 472 Other: Voiding Method Bedpan # Voids 1 2 - Exam -GENERAL: The patient is alert and oriented x3, not in any acute distress. Obese HEENT: Pupils are round and equally reacting to light. EOMI. No scleral icterus. No conjunctival pallor. Normocephalic, atraumatic. No pharyngeal erythema. No thyromegaly. CARDIOVASCULAR: S1 and S2 present. No murmurs, rubs, or gallops. PULMONARY: Chest is clear to auscultation, no wheezing or crackles. ABDOMEN: Soft, nontender, nondistended, normoactive bowel sounds. No palpable organomegaly. MUSCULOSKELETAL: No joint swelling or deformity. EXTREMITIES: No cyanosis, clubbing, or pedal edema. NEUROLOGICAL: Gross neurological examination did not reveal any focal deficits. SKIN: No rashes. no petechiae. - Labs CBC & Chem 7: 07/31/20 10:27 07/30/20 07:26 Labs: Abnormal Lab Results - Last 24 Hours (Table) 07/30/20 07/31/20 07/31/20 Range/Units 20:13 06:42 10:27 WBC 13.6 H (3.8-10.6) k/uL RBC 3.41 L (3.80-5.40) m/uL Hgb 9.3 L (11.4-16.0) gm/dL Hct 28.8 L (34.0-46.0) % RDW 15.8 H (11.5-15.5) % POC Glucose (mg/dL) 220 H 117 H (75-99) mg/dL 07/31/20 07/31/20 Range/Units 12:32 16:44 WBC (3.8-10.6) k/uL RBC (3.80-5.40) m/uL Hgb (11.4-16.0) gm/dL Hct (34.0-46.0) % RDW (11.5-15.5) % POC Glucose (mg/dL) 110 H 133 H (75-99) mg/dL Assessment and Plan Assessment: STEMI, status post angioplasty of the LAD Ischemic cardiomyopathy Diabetes mellitus Hypertension Hyperlipidemia Morbid obesity with BMI of 46 Sleep apnea History of TIA/TIA Hypothyroidism Plan: This is a pleasant 70 years old female who presents with STEMI status post angioplasty of the LAD. Cardiology on the case. Continue with aspirin Brilinta, metoprolol and lisinopril Encourage ambulation Follow-up recommendation by lasting floorworker Labs and medication were reviewed.. Continue same treatment. Continue with symptomatic treatment. Resume home medication. Monitor lytes and vitals. DVT and GI prophylaxis. Further recommendations of the clinical course of the patient Possible discharge in 24-48 hours also per lasting floorworker clearance
[2020-07-31 20:07] LABS: Glucose,Whole Blood 133 mg/dL (75-99)
[2020-07-31] MEDS: INSULIN DETEMIR (LEVEMIR) 100 UNIT/ML SYR SQ SCH (21:11)
[2020-07-31] MEDS: SERTRALINE 50 MG TAB PO SCH (21:11)
[2020-07-31] MEDS: ATORVASTATIN 80 MG TAB PO SCH (21:11)
[2020-07-31 21:48] LABS: Albumin 3.2 g/dL (3.5-5.0); Bilirubin, Delta 0.2 mg/dL (0.0-0.2); Bilirubin,Unconjugated 0.5 mg/dL (0.0-1.1); Total Bilirubin 0.7 mg/dL (0.2-1.3); Total Protein 5.7 g/dL (6.3-8.2)
[2020-07-31 22:18] LABS: HCT 35.2 % (34.0-46.0); HGB 10.4 gm/dL (11.4-16.0); Hypochromasia Marked; MCH 27.5 pg (25.0-35.0); MCHC 29.4 g/dL (31.0-37.0); Mean Platelet Volume 7.8; Platelet Count 292 k/uL (150-450); RBC 3.76 m/uL (3.80-5.40); RDW 15.2 % (11.5-15.5); WBC 13.4 k/uL (3.8-10.6)
[2020-07-31 22:20] LABS: MCV 93.5 fL (80.0-100.0)
[2020-07-31 23:13] LABS: Anisocytosis (M) Present; Eosinophils # (M) 0.27 k/uL (0-0.7); Lymphocytes # (M) 2.55 k/uL (1.0-4.8); Monocytes # (M) 0.13 k/uL (0-1.0); Neutrophils # (M) 10.45 k/uL (1.3-7.7); Neutrophils % (M) 78 %; Nucleated Red Blood Cells 0 /100 WBC (0-0); Polychromasia Present; Total Cells Counted 100
[2020-08-01 03:02] LABS: Appearance,Urine Clear (Clear); Bacteria,Urine Rare /hpf; Bilirubin,Urine Negative (Negative); Blood,Urine Negative (Negative); Color,Urine Yellow; Glucose,Urine (UA) Negative (Negative); Hyaline Casts,Urine 6 /lpf (0-2); Ketones,Urine Negative (Negative); Leukocyte Esterase,Urine Large (Negative); Mucus,Urine Rare /hpf; Nitrite,Urine Negative (Negative); Protein,Urine Negative (Negative); RBC,Urine 1 /hpf (0-5); Specific Gravity,Urine 1.014 (1.001-1.035); Squamous Epithelial Cell,Urine <1 /hpf (0-4); Urobilinogen,Urine <2.0 mg/dL (<2.0); WBC,Urine 116 /hpf (0-5)
[2020-08-01 03:56] VITALS: TEMP 98.1
[2020-08-01 06:19] LABS: Albumin 3.1 g/dL (3.5-5.0); Bilirubin, Delta 0.1 mg/dL (0.0-0.2); Bilirubin,Unconjugated 0.7 mg/dL (0.0-1.1); Total Bilirubin 0.8 mg/dL (0.2-1.3); Total Protein 5.7 g/dL (6.3-8.2)
[2020-08-01 06:20] LABS: Basophils % (A) 0 %; Eosinophils # (A) 0.4 k/uL (0-0.7); Eosinophils % (A) 3 %; HCT 30.2 % (34.0-46.0); HGB 9.6 gm/dL (11.4-16.0); Lymphocytes # (A) 2.7 k/uL (1.0-4.8); Lymphocytes % (A) 21 %; MCH 26.9 pg (25.0-35.0); MCHC 31.8 g/dL (31.0-37.0); Mean Platelet Volume 7.5; Monocytes # (A) 0.7 k/uL (0-1.0); Monocytes % (A) 6 %; Neutrophils % (A) 69 %; Platelet Count 273 k/uL (150-450); RBC 3.58 m/uL (3.80-5.40); RDW 15.4 % (11.5-15.5); WBC 13.1 k/uL (3.8-10.6)
[2020-08-01 06:22] LABS: Glucose,Whole Blood 184 mg/dL (75-99)
[2020-08-01] MEDS: LEVOTHYROXINE 50 MCG TAB PO SCH (06:35)
[2020-08-01 06:53] LABS: MCV 84.3 fL (80.0-100.0)
[2020-08-01] MEDS: ASPIRIN 81 MG PO SCH (08:18)
[2020-08-01] MEDS: CHOLECALCIFEROL 1,000 UNIT TAB PO SCH (08:18)
[2020-08-01] MEDS: lisinopriL 10 MG TAB PO SCH (08:18)
[2020-08-01] MEDS: hydroCHLOROthiazide 25 MG TAB PO SCH (08:18)
[2020-08-01] MEDS: TICAGRELOR 90 MG TAB PO SCH (08:18)
[2020-08-01] MEDS: MULTIVITAMINS, THERA 1 EACH TAB PO SCH (08:18)
[2020-08-01] MEDS: CALCIUM CARBONATE 500 MG CHEWABLE PO SCH (08:18)
[2020-08-01] MEDS: METOPROLOL TARTRATE 25 MG TAB PO SCH (08:18)
[2020-08-01] MEDS: LIOTHYRONINE SODIUM 5 MCG TAB PO SCH (08:19)
[2020-08-01] MEDS: INSULIN ASPART (NovoLOG) 100 UNIT/ML VIAL SQ SCH ×4 (08:19→12:32)
[2020-08-01 08:28] VITALS: RESP 16
--- NOTE | 2020-08-01 11:26 | P.PN ---
Subjective Progress Note Date: 08/01/20 CHIEF COMPLAINT: Chest pain HISTORY OF PRESENT ILLNESS: Patient examined this morning at the bedside. She underwent cardiac catheterization and stenting to the LAD. PHYSICAL EXAM: VITAL SIGNS: Reviewed. GENERAL: Well-developed in no acute distress. HEENT: Head is normocephalic. Pupils are equal, round. Sclerae anicteric. Mucous membranes of the mouth are moist. Neck supple. No JVD or thyromegaly LUNGS: Respirations even and unlabored. Lungs essentially clear to auscultation bilaterally. HEART: Regular rate and rhythm. S1 and S2 heard. ABDOMEN: Soft. Nontender. EXTREMITIES: Normal range of motion. No clubbing or cyanosis. Peripheral pulses intact. No lower extremity edema NEUROLOGIC: Awake and alert. Oriented x 3. ASSESSMENT: 1. STEMI, s/p cardiac cath with stent to LAD 2. Coronary artery disease with previous stent placement to the proximal LAD, 07/16/2020 3. Hypertension 4. Hyperlipidemia 5. Diabetes mellitus, Type II 6. Ischemic cardiomyopathy, ejection fraction 40-45% PLAN: Continue current cardiac medications. Patient is stable for discharge home today from a cardiac standpoint. She is to follow up outpatient with Dr. Lynn Nurse practitioner note has been reviewed by physician. Signing provider agrees with the documented findings, assessment, and plan of care. Objective - Vital Signs Vital signs: Vital Signs Temp 98.1 F 08/01/20 03:54 Pulse 72 08/01/20 08:00 Resp 16 08/01/20 08:00 BP 140/72 08/01/20 08:00 Pulse Ox 99 08/01/20 08:00 Intake & Output 07/31/20 08/01/20 08/01/20 18:59 06:59 18:59 Intake Total 472 Output Total 350 Balance 472 -350 Weight 130.8 kg Intake: Oral 472 Output: Urine 350 Other: Voiding Method Bedpan Bedpan # Voids 2 0 0 - Labs CBC & Chem 7: 08/01/20 05:51 07/30/20 07:26 Labs: Abnormal Lab Results - Last 24 Hours (Table) 07/31/20 07/31/20 07/31/20 Range/Units 12:32 16:44 20:05 WBC (3.8-10.6) k/uL RBC (3.80-5.40) m/uL Hgb (11.4-16.0) gm/dL Hct (34.0-46.0) % MCHC (31.0-37.0) g/dL Neutrophils # (1.3-7.7) k/uL Neutrophils # (Manual) (1.3-7.7) k/uL POC Glucose (mg/dL) 110 H 133 H 133 H (75-99) mg/dL AST (14-36) U/L ALT (4-34) U/L Total Protein (6.3-8.2) g/dL Albumin (3.5-5.0) g/dL Ur Leukocyte Esterase (Negative) Urine WBC (0-5) /hpf Urine Bacteria (None) /hpf Hyaline Casts (0-2) /lpf Urine Mucus (None) /hpf 07/31/20 07/31/20 08/01/20 Range/Units 21:13 21:13 02:23 WBC 13.4 H (3.8-10.6) k/uL RBC 3.76 L (3.80-5.40) m/uL Hgb 10.4 L (11.4-16.0) gm/dL Hct (34.0-46.0) % MCHC 29.4 L (31.0-37.0) g/dL Neutrophils # (1.3-7.7) k/uL Neutrophils # (Manual) 10.45 H (1.3-7.7) k/uL POC Glucose (mg/dL) (75-99) mg/dL AST 60 H (14-36) U/L ALT 38 H (4-34) U/L Total Protein 5.7 L (6.3-8.2) g/dL Albumin 3.2 L (3.5-5.0) g/dL Ur Leukocyte Esterase Large H (Negative) Urine WBC 116 H (0-5) /hpf Urine Bacteria Rare H (None) /hpf Hyaline Casts 6 H (0-2) /lpf Urine Mucus Rare H (None) /hpf 08/01/20 08/01/20 08/01/20 Range/Units 05:51 05:51 06:21 WBC 13.1 H (3.8-10.6) k/uL RBC 3.58 L (3.80-5.40) m/uL Hgb 9.6 L (11.4-16.0) gm/dL Hct 30.2 L (34.0-46.0) % MCHC (31.0-37.0) g/dL Neutrophils # 9.0 H (1.3-7.7) k/uL Neutrophils # (Manual) (1.3-7.7) k/uL POC Glucose (mg/dL) 184 H (75-99) mg/dL AST 48 H (14-36) U/L ALT (4-34) U/L Total Protein 5.7 L (6.3-8.2) g/dL Albumin 3.1 L (3.5-5.0) g/dL Ur Leukocyte Esterase (Negative) Urine WBC (0-5) /hpf Urine Bacteria (None) /hpf Hyaline Casts (0-2) /lpf Urine Mucus (None) /hpf
[2020-08-01 12:17] LABS: Glucose,Whole Blood 175 mg/dL (75-99)
[2020-08-01 12:18] VITALS: BP 134/63; PULSE 73
--- NOTE | 2020-08-01 14:15 | P.DS ---
Providers Date of admission: 07/28/20 13:40 Attending physician: Boris Galeano MD Consults: 07/29/20 07:53 Consult Physician Stat Consulting Provider: Corrine Lynn Reason/Comments: Cardiac management Do you want consulting provider notified?: Already Contacted Primary care physician: Kylee Figueroa Hospital Course: Diagnoses: STEMI, status post angioplasty of the LAD Ischemic cardiomyopathy, with no overt signs and symptoms of heart failure Possible mild acute urinary tract infection, versus asymptomatic bacteriuria Leukocytosis, could be reactive from her STEMI, and possible UTI Diabetes mellitus Hypertension Hyperlipidemia Morbid obesity with BMI of 46 Sleep apnea History of TIA/TIA Hypothyroidism Hospital course: This is a pleasant 70 years old female with multiple medical problems was admitted because of chest pain and found to have STEMI, she underwent cardiac cath and found to have critical disease in the (LAD)left anterior descending artery, status post angioplasty. Patient is currently on aspirin and Brillinta , also she is on metoprolol starting and lisinopril, patient is doing well with no chest pain or dyspnea, although feels she is back to her baseline. She is hemodynamically stable. She has mild leukocytosis and therefore enzymes slightly elevated but trending down, urine analysis was suspicious for infection however patient has no burning no increased frequency and no urgency. however patient has leukocytosis, short course of oral antibiotics is a provided Cardiology team cleared patient for discharge today. [employer] Polisher since the cardiac prescription to her pharmacy Problems and management plan were discussed with the patient and he verbalized understanding and acceptance Patient was found stable and can be discharged home however he needs follow-up as an outpatient. Patient was instructed to follow up with PCP Dr. Figueroa within one week and patient agrees. Patient also was instructed to follow up with her venetian blind tape cutter Dr. Lnyn in one week and she agrees to call and make her own appointments. Today is weakened and holiday Gen: patient is a AAOx3, no distress CVS: S1-S2, RRR, no murmur Lungs: B/L CTA, no wheezing Abdomen: soft, no distention, no tenderness, positive bowel sounds Extremity: no leg edema or induration Time spent more than 35 minutes Patient Condition at Discharge: Serious Plan - Discharge Summary Discharge Rx Participant: No New Discharge Prescriptions: New Aspirin 81 mg PO DAILY #30 chew Ticagrelor [Brilinta] 90 mg PO BID #60 tab Metoprolol Tartrate [Lopressor] 25 mg PO TID #90 tab lisinopriL [Zestril] 10 mg PO BID #60 tab Cefuroxime Axetil [Ceftin] 500 mg PO BID 3 Days #6 tab INSULIN ASPART (NovoLOG) [NovoLOG (formulary)] 12 unit SQ AC-TID #1 vial INSULIN ASPART (NovoLOG) [NovoLOG (formulary)] 0 unit SQ ACHS vial Continue Insulin Glargine [Lantus] 60 unit SQ HS Levothyroxine Sodium [Synthroid] 50 mcg PO QAM Nitroglycerin Sl Tabs [Nitrostat] 0.4 mg SUBLINGUAL Q5M PRN #25 tab PRN Reason: Chest Pain Clopidogrel [Plavix] 75 mg PO DAILY Liothyronine Sodium [Cytomel] 5 mcg PO DAILY Sertraline HCl [Zoloft] 50 mg PO HS Cetirizine HCl [Zyrtec] 10 mg PO DAILY PRN PRN Reason: Allergy Symptoms Atorvastatin [Lipitor] 80 mg PO HS #30 tab Ondansetron Odt [Zofran ODT] 4 mg PO Q8HR PRN #10 tab PRN Reason: Nausea Docusate [Colace] 100 mg PO BID PRN PRN Reason: Constipation Cholecalciferol [Vitamin D3 (25 Mcg = 1000 Iu)] 5,000 unit PO DAILY Calcium Carbonate [Calcium] 600 mg PO DAILY Nystatin 100,000 Unit/gm Powd [Mycostatin Powder] 1 applic TOPICAL BID PRN PRN Reason: Rash hydroCHLOROthiazide [Hydrodiuril] 25 mg PO DAILY #30 tab Discontinued Metoprolol Tartrate [Lopressor] 25 mg PO BID Insulin Aspart [NovoLOG Flexpen] 6 units SQ AC-TID Insulin Aspart [NovoLOG Flexpen] See Protocol SQ AC-TID Aspirin 325 mg PO DAILY #30 tab Vitamin B Complex 1 tab PO DAILY Multivitamins, Thera [Multivitamin (formulary)] 1 tab PO DAILY lisinopriL [Zestril] 10 mg PO DAILY #30 tab Discharge Medication List Insulin Glargine [Lantus] 60 unit SQ HS 04/26/15 [History] Levothyroxine Sodium [Synthroid] 50 mcg PO QAM 08/21/17 [History] Nitroglycerin Sl Tabs [Nitrostat] 0.4 mg SUBLINGUAL Q5M PRN #25 tab 09/20/18 [Rx] Clopidogrel [Plavix] 75 mg PO DAILY 05/21/19 [History] Cetirizine HCl [Zyrtec] 10 mg PO DAILY PRN 05/06/20 [History] Liothyronine Sodium [Cytomel] 5 mcg PO DAILY 05/06/20 [History] Sertraline HCl [Zoloft] 50 mg PO HS 05/06/20 [History] Atorvastatin [Lipitor] 80 mg PO HS #30 tab 05/08/20 [Rx] Ondansetron Odt [Zofran ODT] 4 mg PO Q8HR PRN #10 tab 05/19/20 [Rx] Calcium Carbonate [Calcium] 600 mg PO DAILY 07/15/20 [History] Cholecalciferol [Vitamin D3 (25 Mcg = 1000 Iu)] 5,000 unit PO DAILY 07/15/20 [History] Docusate [Colace] 100 mg PO BID PRN 07/15/20 [History] Nystatin 100,000 Unit/gm Powd [Mycostatin Powder] 1 applic TOPICAL BID PRN 07/15/20 [History] hydroCHLOROthiazide [Hydrodiuril] 25 mg PO DAILY #30 tab 07/20/20 [Rx] Aspirin 81 mg PO DAILY #30 chew 08/01/20 [Rx] Cefuroxime Axetil [Ceftin] 500 mg PO BID 3 Days #6 tab 08/01/20 [Rx] INSULIN ASPART (NovoLOG) [NovoLOG (formulary)] 0 unit SQ ACHS vial 08/01/20 [Rx] INSULIN ASPART (NovoLOG) [NovoLOG (formulary)] 12 unit SQ AC-TID #1 vial 08/01/20 [Rx] Metoprolol Tartrate [Lopressor] 25 mg PO TID #90 tab 08/01/20 [Rx] Ticagrelor [Brilinta] 90 mg PO BID #60 tab 08/01/20 [Rx] lisinopriL [Zestril] 10 mg PO BID #60 tab 08/01/20 [Rx] Follow up Appointment(s)/Referral(s): Corrine Lynn MD [STAFF PHYSICIAN] - 1 Week Humberto Poole MD [REFERRING] - 1 Week (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
== END 2020-08-01 15:10 | disposition home health service (06) | DRG 247 ==
LOC: CATHCVL 13:26 → 2SICU 13:40 → 3SCARD 07-30 19:29
PROVIDERS: ADMIT Family Medicine; ATTEND Family Medicine
PROC: 4A023N7 Measurement of Cardiac Sampling and Pressure, Left Heart, Percutaneous Approach (ICD-10-PCS; principal; 2020-07-28 16:50)
PROC: 027035Z Dilation of Coronary Artery, One Artery with Two Drug-eluting Intraluminal Devices, Percutaneous Approach (ICD-10-PCS; principal; 2020-07-28 16:50)
PROC: B2111ZZ Fluoroscopy of Multiple Coronary Arteries using Low Osmolar Contrast (ICD-10-PCS; principal; 2020-07-28 16:50)
DX: I21.02 ST elevation (STEMI) myocardial infarction involving left anterior descending coronary artery (principal); Z68.42 Body mass index [BMI] 45.0-49.9, adult; N39.0 Urinary tract infection, site not specified; I25.110 Atherosclerotic heart disease of native coronary artery with unstable angina pectoris; M19.90 Unspecified osteoarthritis, unspecified site; E03.9 Hypothyroidism, unspecified; E78.5 Hyperlipidemia, unspecified; G47.33 Obstructive sleep apnea (adult) (pediatric); Z96.1 Presence of intraocular lens; E11.42 Type 2 diabetes mellitus with diabetic polyneuropathy; M51.36 Other intervertebral disc degeneration, lumbar region; F31.9 Bipolar disorder, unspecified; F41.9 Anxiety disorder, unspecified; E66.01 Morbid (severe) obesity due to excess calories; E87.5 Hyperkalemia; I10 Essential (primary) hypertension; I25.5 Ischemic cardiomyopathy; I25.82 Chronic total occlusion of coronary artery; Z98.42 Cataract extraction status, left eye; Z98.41 Cataract extraction status, right eye; Z90.710 Acquired absence of both cervix and uterus; Z98.890 Other specified postprocedural states; Z98.51 Tubal ligation status; Z99.89 Dependence on other enabling machines and devices; Z80.7 Family history of other malignant neoplasms of lymphoid, hematopoietic and related tissues; Z79.4 Long term (current) use of insulin; Z79.890 Hormone replacement therapy; Z79.82 Long term (current) use of aspirin; Z79.02 Long term (current) use of antithrombotics/antiplatelets; Z79.899 Other long term (current) drug therapy; Z91.041 Radiographic dye allergy status; Z91.040 Latex allergy status; Z88.7 Allergy status to serum and vaccine; Z91.09 Other allergy status, other than to drugs and biological substances; Z86.73 Personal history of transient ischemic attack (TIA), and cerebral infarction without residual deficits; Z82.49 Family history of ischemic heart disease and other diseases of the circulatory system; Z80.8 Family history of malignant neoplasm of other organs or systems; Z80.1 Family history of malignant neoplasm of trachea, bronchus and lung; Z82.69 Family history of other diseases of the musculoskeletal system and connective tissue
CPT/HCPCS: 71045; 80048; 80053; 80076; 81001; 83036; 83735; 84100; 84484; 85025; 85027; 85347; 85610; 85730; 93005; 93306; 93458; 96374; 96375; 99291

== ENCOUNTER → 2021-01-25 | Outpatient (CLI) | payer MEDICARE ==
--- NOTE | 2021-01-25 17:06 | XR ---
EXAMINATION TYPE: XR chest 2V DATE OF EXAM: 01/25/2021 COMPARISON: Chest x-ray 07/28/2020 HISTORY: J 18.1, R09.89 TECHNIQUE: Frontal and lateral views of the chest are obtained. FINDINGS: There is no focal air space opacity, pleural effusion, or pneumothorax seen. The cardiac silhouette size is within normal limits. There is persistent elevation of right hemidiaphragm. Ther e are coronary artery calcifications present. Possible coronary stent. The osseous structures are int act. IMPRESSION: No acute cardiopulmonary process.
== END ==
LOC: RADXRMAIN 15:46
PROVIDERS: ATTEND Family Medicine
DX: R09.89 Other specified symptoms and signs involving the circulatory and respiratory systems (principal)
CPT/HCPCS: 71046

== ENCOUNTER 2021-02-17 22:30 | Inpatient (IN) | payer MEDICARE ==
[2021-02-18 05:53] LABS: Albumin 3.9 g/dL (3.5-5.0); Calcium 9.9 mg/dL (8.4-10.2); Potassium 4.4 mmol/L (3.5-5.1); Total Bilirubin 0.4 mg/dL (0.2-1.3); Total Protein 6.7 g/dL (6.3-8.2)
[2021-02-18 05:54] LABS: Basophils % (A) 0 %; Eosinophils # (A) 0.4 k/uL (0-0.7); Eosinophils % (A) 4 %; HCT 40.2 % (34.0-46.0); INR 0.9 (<1.2); Lymphocytes # (A) 1.9 k/uL (1.0-4.8); Lymphocytes % (A) 18 %; MCH 25.7 pg (25.0-35.0); MCHC 32.3 g/dL (31.0-37.0); MCV 79.5 fL (80.0-100.0); Mean Platelet Volume 6.6; Monocytes # (A) 0.6 k/uL (0-1.0); Monocytes % (A) 6 %; Neutrophils # (A) 7.6 k/uL (1.3-7.7); Neutrophils % (A) 71 %; Platelet Count 295 k/uL (150-450); Prothrombin Time 9.4 sec (9.0-12.0); RBC 5.06 m/uL (3.80-5.40); RDW 15.3 % (11.5-15.5); WBC 10.7 k/uL (3.8-10.6)
--- NOTE | 2021-02-18 13:35 | XR ---
EXAM: XR Chest, 2 Views CLINICAL HISTORY: ELLA TECHNIQUE: Frontal and lateral views of the chest. COMPARISON: 01/25/2021, FINDINGS: Lungs: No consolidation. Pleural space: Unremarkable. No pneumothorax. Heart: Mild enlarged cardiac silhouette. Cephalization of pulmonary vessels. Mild perihilar interstitial opacities. Mediastinum: Unremarkable. Bones/joints: No acute osseous abnormality. Upper abdomen: Unchanged mild elevated right hemidiaphragm. IMPRESSION: Findings suggestive of CHF. Enlarged cardiac silhouette. Mild interstitial pulmonary edema.
[2021-02-18 13:44] LABS: Glucose,Whole Blood 188 mg/dL (75-99)
[2021-02-18] MEDS ORDERED: LORATADINE 10 MG TAB PO PRN (13:45)
[2021-02-18] MEDS ORDERED: DOCUSATE 100 MG CAP PO PRN (13:45)
[2021-02-18] MEDS: hydroCHLOROthiazide 25 MG TAB PO SCH (14:30)
[2021-02-18] MEDS: lisinopriL 10 MG TAB PO SCH (14:31)
[2021-02-18] MEDS: LEVOTHYROXINE 50 MCG TAB PO SCH (14:31)
[2021-02-18] MEDS: SERTRALINE 50 MG TAB PO SCH (14:31)
[2021-02-18] MEDS: ASPIRIN 81 MG PO SCH (14:31)
[2021-02-18] MEDS: METOPROLOL TARTRATE 25 MG TAB PO SCH ×2 (14:31→20:49)
[2021-02-18] MEDS: FUROSEMIDE 10 MG/ML 4 ML VIAL IV SCH ×2 (14:31→20:49)
[2021-02-18] MEDS: LIOTHYRONINE SODIUM 5 MCG TAB PO SCH (15:00)
[2021-02-18] MEDS ORDERED: HEPARIN SODIUM,PORCINE 5,000 UNIT/ML 1 ML VIAL IV ONE (17:40)
[2021-02-18] MEDS ORDERED: HEPARIN SODIUM,PORCINE 5,000 UNIT/ML 1 ML VIAL IV PRN (17:40)
[2021-02-18] MEDS: HEPARIN SOD,PORK IN 0.45% NACL 25,000 UNIT in 0.45% NACL 1 250ML.BAG IV SCH (17:59)
[2021-02-18 18:31] LABS: Glucose,Whole Blood 308 mg/dL (75-99)
[2021-02-18 20:32] LABS: Glucose,Whole Blood 306 mg/dL (75-99)
[2021-02-18] MEDS: INSULIN ASPART (NovoLOG) 100 UNIT/ML VIAL SQ SCH (20:56)
[2021-02-18] MEDS: INSULIN DETEMIR (LEVEMIR) 100 UNIT/ML SYR SQ SCH (20:57)
[2021-02-18] MEDS: TICAGRELOR 90 MG TAB PO SCH (21:10)
--- NOTE | 2021-02-18 23:08 | P.HPIM ---
History of Present Illness H&P Date: 02/18/21 Chief Complaint: Shortness of breath Ms. Goyla is a 70-year-old female with a past medical history of coronary artery disease status post stenting, hypertension, hyperlipidemia, type 2 diabetes mellitus, obstructive sleep apnea on CPAP, thyroid disorder, DJD coming to the hospital with a chief complaint of chest heaviness and difficulty in breathing. Patient states that she went to bed last night and started to feel like having difficulty to breathe. She mentions that it was hurting to take in a deep breath. Patient denies having any recent travel. No history of recent surgeries. Patient denies having any syncopal episodes or loss of consciousness. In route to the hospital patient was having nausea and threw up a few times. Patient has significant past medical history of coronary artery disease, she had STEMI in July 2020, status post angioplasty of LAD and poorly controlled diabetes. Patient also complains of diabetic foot ulcers and diabetic neuropathy. At the time of admission patient's vitals temperature of 97.6, heart rate 86, respiratory rate 32, blood pressure 205 x 89 saturating at 89% on room air. In the ER EKG was obtained showing no new changes to the EKG. She had a first set of troponin which was less than 0.012 and a repeat was 0.266. She is being started on heparin drip now. Review of Systems REVIEW OF SYSTEMS: CONSTITUTIONAL: No fevers, chills or rigors HEENT: No recent visual problems or hearing problems. Denied any sore throat. CARDIOVASCULAR: As per HPI PULMONARY: Cough with difficulty in breathing GASTROINTESTINAL: Positive for nausea and vomiting. No diarrhea. No abdominal pain NEUROLOGICAL: No headaches, no weakness. HEMATOLOGICAL: Denies any bleeding or petechiae. GENITOURINARY: Denies any burning micturition, frequency, or urgency. MUSCULOSKELETAL/RHEUMATOLOGICAL: Denies any joint pain, swelling, or any muscle pain. ENDOCRINE: Denies any polyuria or polydipsia. The rest of the 14-point review of systems is negative. Past Medical History Past Medical History: Coronary Artery Disease (CAD), CVA/TIA, Diabetes Mellitus, Eye Disorder, Hearing Disorder / Deafness, Hypertension, Liver Disease, Myocardi al Infarction ([place]), Osteoarthritis (OA), Sleep Apnea/CPAP/BIPAP, Syncope, Thyroid Disorder Additional Past Medical History / Comment(s): IDDM type II, neuropathy knees down bilaterally, ischemic cardiopmyopathy, 2009 small CVA with occasional word finding difficulty, R eye retinal bleed with some vision loss, bilateral diabetic retinopathy, fatty liver, chronic back pain, DDD< mild central canal stenosis, migraines, osteoporosis, UTI, bilateral tinnitis, BROCK no longer to lerates Cpap, benign thyroid nodules, CHI age 14, sycopal episodes as a child, sinus problems Last Myocardial Infarction Date:: 07/2020 History of Any Multi-Drug Resistant Organisms: None Reported Past Surgical History: Breast Surgery, Heart Catheterization With Stent, Hysterectomy, Orthopedic Surgery, Tubal Ligation Additional Past Surgical History / Comment(s): PCI with stents in 06/2020 and 07/2020, several thyroid gland bxs, bilateral benign breast lumpectomies, D&c, bilateral feet 2 hammer toes each, R knee arthroscopy, low back injections, TTT, colonoscopies, bilateral cataract removals. Past Anesthesia/Blood Transfusion Reactions: No Reported Reaction, Motion Sic kness Additional Past Anesthesia/Blood Transfusion Reaction / Comment(s): h ypotension/memory problems Date of Last Stent Placement:: 2019 Smoking Status: Never smoker - Past Family History Father Family Medical History: Cancer Additional Family Medical History / Comment(s): Father had lymphoma. He had LUNG, BONE, THROAT AND MOUTH CANCER Brother(s) Family Medical History: Myocardial Infarction ([place]) Additional Family Medical History / Comment(s): Muscle Disease, Rheumatic fever at 2 years old Mother Family Medical History: Cancer Additional Family Medical History / Comment(s): lung cancer- mother. She at the age of 79yrs from esophageal valencia after radiation-unable to eat. Patient states "mother had aneurysm". Medications and Allergies Home Medications Medication Instructions Recorded Confirmed Type Insulin Glargine [Lantus] 60 unit SQ HS 04/26/15 02/18/21 History Levothyroxine Sodium [Synthroid] 50 mcg PO QAM 08/21/17 02/18/21 History Nitroglycerin Sl Tabs [Nitrostat] 0.4 mg SUBLINGUAL Q5M PRN #25 tab 09/20/18 02/18/21 Rx Cetirizine HCl [Zyrtec] 10 mg PO DAILY PRN 05/06/20 02/18/21 History Liothyronine Sodium [Cytomel] 5 mcg PO DAILY 05/06/20 02/18/21 History Sertraline HCl [Zoloft] 50 mg PO DAILY 05/06/20 02/18/21 History Calcium Carbonate [Calcium] 600 mg PO DAILY 07/15/20 02/18/21 History Docusate [Colace] 100 mg PO BID PRN 07/15/20 02/18/21 History hydroCHLOROthiazide [Hydrodiuril] 25 mg PO DAILY #30 tab 07/20/20 02/18/21 Rx Aspirin 81 mg PO DAILY #30 chew 08/01/20 02/18/21 Rx Ticagrelor [Brilinta] 90 mg PO BID #60 tab 08/01/20 02/18/21 Rx Cholecalciferol (Vitamin D3) 125 mcg PO DAILY 02/18/21 02/18/21 History [Vitamin D3 (5000 Iu)] INSULIN ASPART (NovoLOG) [NovoLOG See Protocol SQ ACHS 02/18/21 02/18/21 History (formulary)] Metoprolol Tartrate [Lopressor] 25 mg PO BID 02/18/21 02/18/21 History Niacin (Inositol Niacinate) 500 mg PO DAILY 02/18/21 02/18/21 History [Niacin 500 mg Capsule] lisinopriL [Zestril] 2.5 mg PO DAILY 02/18/21 02/18/21 History Allergies Allergy/AdvReac Type Severity Reaction Status Date / Time Iodinated Contrast Media Allergy Swelling, Verified 02/18/21 07:33 [Iodinated Contrast Media - SHORTNESS IV Dye] OF BREATH latex Allergy Rash/Hives Verified 02/18/21 07:33 talc Allergy Rash/Hives Verified 02/18/21 07:33 adhesive tape AdvReac blisters Verified 02/18/21 07:33 amlodipine AdvReac ankle Verified 02/18/21 07:33 swelling hydralazine AdvReac Diarrhea Verified 02/18/21 07:33 metal Allergy Rash/Hives Uncoded 02/18/21 07:33 Physical Exam Vitals: Vital Signs Temp Pulse Resp BP Pulse Ox 02/18/21 17:00 70 18 100 02/18/21 16:00 71 18 100 02/18/21 15:00 75 18 100 02/18/21 14:00 77 19 145/76 100 02/18/21 13:10 96 19 187/73 100 02/18/21 12:00 73 16 178/80 97 02/18/21 11:00 75 16 163/63 97 02/18/21 10:00 78 16 174/77 97 02/18/21 09:00 97.6 F 80 16 148/70 97 02/18/21 08:00 68 16 165/82 97 02/17/21 22:56 86 195/83 02/17/21 22:55 96 02/17/21 22:54 25 H 02/17/21 22:33 97.6 F 10 L 32 H 205/89 89 L Intake and Output 02/18/21 02/18/21 02/18/21 06:59 14:59 22:59 Other: Weight 133.81 kg PHYSICAL EXAMINATION: GENERAL: The patient is alert and oriented x3, not in any acute distress. Lying in bed , daughter at bed side. HEENT: Pupils are round and equally reacting to light. EOMI. No scleral icterus. No pallor. CARDIOVASCULAR: S1 and S2 present. PULMONARY: Bilateral clear breath sounds. No crackles at the lower lung bases. ABDOMEN: Abdomen is soft. Nontender. Nondistended. Normal bowel sounds. MUSCULOSKELETAL: No joint swelling or deformity. EXTREMITIES: No cyanosis, clubbing, or pedal edema. Diabetic ulcer on the right 2 nd toe, no signs of infection. NEUROLOGICAL: Gross neurological examination did not reveal any focal deficits. SKIN: No rashes. Results CBC & Chem 7: 02/17/21 22:52 02/17/21 22:52 Labs: Abnormal Lab Results - Last 24 Hours (Table) 02/17/21 02/17/21 02/18/21 Range/Units 22:52 22:52 13:41 WBC 10.7 H (3.8-10.6) k/uL MCV 79.5 L (80.0-100.0) fL BUN 24 H (7-17) mg/dL Glucose 282 H (74-99) mg/dL POC Glucose (mg/dL) 188 H (75-99) mg/dL Troponin I (0.000-0.034) ng/mL 02/18/21 Range/Units 15:52 WBC (3.8-10.6) k/uL MCV (80.0-100.0) fL BUN (7-17) mg/dL Glucose (74-99) mg/dL POC Glucose (mg/dL) (75-99) mg/dL Troponin I 0.266 H* (0.000-0.034) ng/mL Thrombosis Risk Factor Assmnt - Choose All That Apply Any of the Below Risk Factors Present?: Yes Each Factor Represents 1 point: Heart failure (<1month), Obesity (BMI >25) Other Risk Factors: Yes Each Risk Factor Represents 2 Points: Age 61-74 years Other congenital or acquired thrombophilia - If yes, enter type in comment: No Thrombosis Risk Factor Assessment Total Risk Factor Score: 4 Thrombosis Risk Factor Assessment Level: Moderate Risk Assessment and Plan Assessment: ASSESSMENT Non-ST elevation [place] Hypertensive urgency Coronary artery disease status post stenting of LAD in July 2020 Type 2 diabetes mellitus Acute on chronic exacerbation of CHF Systolic congestive heart failure ejection fraction 40 to 45% Hypertension Hyperlipidemia Morbid obesity with BMI of 46 Sleep apnea History of TIA/TIA Hypothyroidism Diabetic foot ulcers Diabetic neuropathy Multijoint osteoarthritis CKD stage II PLAN: As the patient has elevated troponins, she has been started on IV heparin drip. Cardiology on board. Patient will be restarted on her home medications. Patient's blood sugars have been running high will adjust the dose of insulin depending upon blood sugars. The treatment plan was discussed with the patient and her daughter at bedside in detail. Further recommendations to follow depending on the progress of the patient
[2021-02-18] MEDS ORDERED: NITROGLYCERIN SL TABS 0.4 MG TAB SUBLINGUAL ONE (23:59)
[2021-02-18] MEDS ORDERED: ASPIRIN 81 MG ONE (23:59)
[2021-02-18] MEDS ORDERED: FUROSEMIDE 10 MG/ML 4 ML VIAL ONE (23:59)
[2021-02-18] MEDS ORDERED: NITROGLYCERIN OINT 1 INCH/GM PACKET TOPICAL ONE (23:59)
[2021-02-19] MEDS: HEPARIN SOD,PORK IN 0.45% NACL 25,000 UNIT in 0.45% NACL 1 250ML.BAG IV SCH ×2 (00:54→14:44)
[2021-02-19] MEDS ORDERED: amLODIPine 5 MG TAB PO STA (03:00)
[2021-02-19] MEDS: LIOTHYRONINE SODIUM 5 MCG TAB PO SCH (06:00)
[2021-02-19] MEDS: LEVOTHYROXINE 50 MCG TAB PO SCH (06:00)
[2021-02-19 06:58] LABS: Glucose,Whole Blood 110 mg/dL (75-99)
[2021-02-19] MEDS: INSULIN ASPART (NovoLOG) 100 UNIT/ML VIAL SQ SCH ×4 (07:55→21:06)
[2021-02-19] MEDS: ASPIRIN 81 MG PO SCH (07:58)
[2021-02-19] MEDS: hydroCHLOROthiazide 25 MG TAB PO SCH (07:58)
[2021-02-19] MEDS: FUROSEMIDE 10 MG/ML 4 ML VIAL IV SCH ×2 (07:59→21:03)
[2021-02-19] MEDS: TICAGRELOR 90 MG TAB PO SCH ×2 (07:59→21:03)
[2021-02-19] MEDS: lisinopriL 10 MG TAB PO SCH (07:59)
[2021-02-19] MEDS: METOPROLOL TARTRATE 25 MG TAB PO SCH (07:59)
[2021-02-19] MEDS: SERTRALINE 50 MG TAB PO SCH (07:59)
[2021-02-19 11:40] LABS: Glucose,Whole Blood 214 mg/dL (75-99)
--- NOTE | 2021-02-19 12:06 | P.CRDCN ---
History of Present Illness Consult date: 02/19/21 History of present illness: The patient is a 71-year-old female with past medical history of coronary artery disease status post stenting in June and July 2020, obesity, diabetes, and hypertension, who presented to the hospital with worsening shortness of breath. The patient follows with Dr. Acevedo in the office. The patient states she started developing increased shortness of breath over the last several days, however it became most apparent last night when she went to bed. She developed heaviness in her chest, however denies any chest pain that would indicate she was having a heart attack. She states her discomfort in her chest did not feel like it did prior to her stents. The patient was interviewed and examined sitting comfortably in her recliner chair. The patient states she does care for her ill who has Parkinson's and feels she may have "overdone it." She states she feels well sitting in a chair, however she has not attempted to ambulate further management bathroom since being admitted to the hospital to assess for shortness of breath. She denies any current chest pain or chest pressure. No palpitations, dizziness, or lightheadedness. She states she does have chronic lower extremity swelling. DIAGNOSTICS: EKG shows sinus rhythm with no ST or T-wave changes Chest x-ray shows enlarged cardiac silhouette with mild interstitial pulmonary edema consistent with congestive heart failure Laboratory data: WBC 10.7, hemoglobin 13.0, hematocrit 40.2, platelet 295, sodium 137, potassium 4.4, BUN 24, creatinine 0.92, AST 25, ALT 17, troponin less than 0.012, 0.272, BNP 2150 PAST MEDICAL HISTORY: Coronary artery disease status post stenting, hypertension, dyslipidemia, diabetes mellitus, shortness sleep apnea with CPAP, hypothyroidism, obesity, ischemic cardiomyopathy REVIEW OF SYSTEMS: No fever or chills. No cough or expectoration. No diaphoresis. Patient denies headache, dizziness, blurred vision, double vision. Patient denies any stomach discomfort. No nausea, vomiting. No hematochezia. No hematemesis. Denies any black stools or blood in his stools. Denies dysuria or hematuria. No muscle weakness or numbness. No chest pain or chest pressure. No shortness of breath. PHYSICAL EXAMINATION: This is a 71-year-old obese female in no apparent distress at the time of my examination. HEENT: Head is atraumatic, normocephalic. Pupils are equal, round. Sclerae anicteric. Conjunctivae are clear. Mucous membranes of the mouth are moist. Neck is supple. There is no jugular venous distention. No carotid bruit is heard. CHEST EXAMINATION: Lungs are clear to auscultation. No chest wall tenderness is noted on palpation or with deep breathing. HEART EXAMINATION: Heart regular rate and rhythm. S1, S2 heard. No murmurs, gallops or rub. ABDOMEN: Soft, nontender. Bowel sounds are heard. No organomegaly noted. EXTREMITIES: 2+ peripheral on the right. Faint pedal pulse on the left. +2 bilateral pitting edema. no calf tenderness noted. NEUROLOGIC EXAMINATION: Patient is awake, alert and oriented x3. FINAL ASSESSMENT AND PLAN: Congestive heart failure, elevated BNP Ischemic cardiomyopathy, known ejection fraction of 40-45% Coronary artery disease, stenting in June 2020 with subsequent in stent restenosis in July Diabetes mellitus, poorly controlled Obesity, BMI 47 Venous insufficiency Elevated troponins, likely secondary to congestive heart failure PLAN: Continue heparin drip for 24 hours; if chest pain free, may discontinue. Start carvedilol 6.25 twice daily Continue IV Lasix; consider transitioning back to oral tomorrow Leg elevation and pulmonary hygiene encouraged Further recommendations per clinical course The patient has been seen and evaluated. Plan of care has been reviewed and agreed upon by Dr Rivera. Past Medical History Past Medical History: Coronary Artery Disease (CAD), CVA/TIA, Diabetes Mellitus, Eye Disorder, Hearing Disorder / Deafness, Hypertension, Liver Disease, Myocardial Infarction (NH), Osteoarthritis (OA), Sleep Apnea/CPAP/BIPAP, Syncope, Thyroid Disorder Additional Past Medical History / Comment(s): IDDM type II, neuropathy knees down bilaterally, ischemic cardiopmyopathy, 2009 small CVA with occasional word finding difficulty, R eye retinal bleed with some vision loss, bilateral di abetic retinopathy, fatty liver, chronic back pain, DDD< mild central canal stenosis, migraines, osteoporosis, UTI, bilateral tinnitis, BROCK no longer tolerates Cpap, benign thyroid nodules, CHI age 14, sycopal episodes as a child, sinus problems Last Myocardial Infarction Date:: 07/2020 History of Any Multi-Drug Resistant Organisms: None Reported Past Surgical History: Breast Surgery, Heart Catheterization With Stent, Hyst erectomy, Orthopedic Surgery, Tubal Ligation Additional Past Surgical History / Comment(s): PCI with stents in 06/2020 and 07/2020, several thyroid gland bxs, bilateral benign breast lumpectomies, D&c, bilateral feet 2 hammer toes each, R knee arthroscopy, low back injections, TTT, colonoscopies, bilateral cataract removals. Past Anesthesia/Blood Transfusion Reactions: No Reported Reaction, Motion Sickness Additional Past Anesthesia/Blood Transfusion Reaction / Comment(s): hypotension/memory problems Date of Last Stent Placement:: 2019 Smoking Status: Never smoker - Past Family History Father Family Medical History: Cancer Additional Family Medical History / Comment(s): Father had lymphoma. He had LUNG, BONE, THROAT AND MOUTH CANCER Brother(s) Family Medical History: Myocardial Infarction (NH) Additional Family Medical History / Comment(s): Muscle Disease, Rheumatic fever at 2 years old Mother Family Medical History: Cancer Additional Family Medical History / Comment(s): lung cancer- mother. She at the age of 79yrs from esophageal valencia after radiation-unable to eat. Patient states "mother had aneurysm". Medications and Allergies Home Medications Medication Instructions Recorded Confirmed Type Insulin Glargine [Lantus] 60 unit SQ HS 04/26/15 02/18/21 History Levothyroxine Sodium [Synthroid] 50 mcg PO QAM 08/21/17 02/18/21 History Nitroglycerin Sl Tabs [Nitrostat] 0.4 mg SUBLINGUAL Q5M PRN #25 tab 09/20/18 02/18/21 Rx Cetirizine HCl [Zyrtec] 10 mg PO DAILY PRN 05/06/20 02/18/21 History Liothyronine Sodium [Cytomel] 5 mcg PO DAILY 05/06/20 02/18/21 History Sertraline HCl [Zoloft] 50 mg PO DAILY 05/06/20 02/18/21 History Calcium Carbonate [Calcium] 600 mg PO DAILY 07/15/20 02/18/21 History Docusate [Colace] 100 mg PO BID PRN 07/15/20 02/18/21 History hydroCHLOROthiazide [Hydrodiuril] 25 mg PO DAILY #30 tab 07/20/20 02/18/21 Rx Aspirin 81 mg PO DAILY #30 chew 08/01/20 02/18/21 Rx Ticagrelor [Brilinta] 90 mg PO BID #60 tab 08/01/20 02/18/21 Rx Cholecalciferol (Vitamin D3) 125 mcg PO DAILY 02/18/21 02/18/21 History [Vitamin D3 (5000 Iu)] INSULIN ASPART (NovoLOG) [NovoLOG See Protocol SQ ACHS 02/18/21 02/18/21 History (formulary)] Metoprolol Tartrate [Lopressor] 25 mg PO BID 02/18/21 02/18/21 History Niacin (Inositol Niacinate) 500 mg PO DAILY 02/18/21 02/18/21 History [Niacin 500 mg Capsule] lisinopriL [Zestril] 2.5 mg PO DAILY 02/18/21 02/18/21 History Allergies Allergy/AdvReac Type Severity Reaction Status Date / Time Iodinated Contrast Media Allergy Swelling, Verified 02/18/21 07:33 [Iodinated Contrast Media - SHORTNESS IV Dye] OF BREATH latex Allergy Rash/Hives Verified 02/18/21 07:33 talc Allergy Rash/Hives Verified 02/18/21 07:33 adhesive tape AdvReac blisters Verified 02/18/21 07:33 amlodipine AdvReac ankle Verified 02/18/21 07:33 swelling hydralazine AdvReac Diarrhea Verified 02/18/21 07:33 metal Allergy Rash/Hives Uncoded 02/18/21 07:33 Physical Exam Vitals: Vital Signs Temp Pulse Pulse Resp BP BP Pulse Ox 02/19/21 08:08 98.3 F 70 19 159/73 99 02/19/21 07:30 19 02/19/21 00:13 97.4 F L 72 15 182/66 93 L 02/18/21 20:00 98.3 F 81 18 174/82 96 02/18/21 19:25 98.8 F 70 15 197/76 96 02/18/21 18:59 97.6 F 72 18 161/62 99 02/18/21 18:00 72 18 161/62 99 02/18/21 17:00 70 18 100 02/18/21 16:00 71 18 100 02/18/21 15:00 75 18 100 02/18/21 14:00 77 19 145/76 100 02/18/21 13:10 96 19 187/73 100 02/18/21 12:00 73 16 178/80 97 Intake and Output 02/18/21 02/19/21 02/19/21 22:59 06:59 14:59 Intake Total 69.416 Balance 69.416 Intake: Intake, IV Titration 69.416 Amount Heparin Sod,Pork in 0.45% 69.416 NaCl 25,000 unit In 0.45 % NaCl 1 250ml.bag @ 7.5 UNITS/KG/HR 10.036 mls/hr IV .Q24H [facility] Rx#: [id number] Other: Weight 133.2 kg Results 02/17/21 22:52 02/17/21 22:52 Cardiac Enzymes 02/18/21 02/18/21 Range/Units 15:52 18:05 Troponin I 0.266 H* 0.272 H* (0.000-0.034) ng/mL Coagulation 02/18/21 02/18/21 02/19/21 Range/Units 18:05 23:25 09:38 APTT 23.7 32.3 H 57.3 H (22.0-30.0) sec Current Medications Generic Name Dose Route Start Last Admin Trade Name Freq PRN Reason Stop Dose Admin Aspirin 81 mg 02/18/21 13:45 02/19/21 07:58 Aspirin 81 Mg PO 81 mg DAILY [facility] Administration Docusate Sodium 100 mg 02/18/21 13:45 Docusate 100 Mg Cap PO BID PRN Constipation Furosemide 40 mg 02/18/21 14:00 02/19/21 07:59 Furosemide 10 Mg/Ml 4 Ml Vial IV 40 mg Q12HR [facility] Administration Heparin Sodium (Porcine) 0 unit 02/18/21 17:40 02/19/21 00:59 Heparin Sodium,Porcine 5,000 Unit/Ml 1 Ml Vial IV 6,000 unit PER PROTOCOL PRN Administration Low PTT Protocol Hydrochlorothiazide 25 mg 02/18/21 13:45 02/19/21 07:58 Hydrochlorothiazide 25 Mg Tab PO 25 mg DAILY [facility] Administration Heparin Sodium/Sodium Chloride 250 mls @ 10.036 mls/hr 02/18/21 17:45 00:54 25,000 unit/ Sodium Chloride IV 10.5 units/kg/hr .Q24H [facility] 14.05 mls/hr Administration Protocol 7.5 UNITS/KG/HR Insulin Aspart 0 unit 02/18/21 21:00 02/19/21 07:55 Insulin Aspart (Novolog) 100 Unit/Ml Vial SQ Not Given ACHS [facility] Protocol Insulin Detemir 60 unit 02/18/21 21:00 02/18/21 20:57 Insulin Detemir (Levemir) 100 Unit/Ml Syr SQ 60 unit HS [facility] Administration Levothyroxine Sodium 50 mcg 02/18/21 13:45 02/19/21 06:00 Levothyroxine 50 Mcg Tab PO 50 mcg QAM@0630 [facility] Administration Liothyronine Sodium 5 mcg 02/18/21 14:00 02/19/21 06:00 Liothyronine Sodium 5 Mcg Tab PO 5 mcg DAILY@0630 [facility] Administration Lisinopril 10 mg 02/18/21 14:00 02/19/21 07:59 Lisinopril 10 Mg Tab PO 10 mg DAILY [facility] Administration Loratadine 10 mg 02/18/21 13:45 02/18/21 14:31 Loratadine 10 Mg Tab PO 10 mg DAILY PRN Administration Allergy Symptoms Metoprolol Tartrate 25 mg 02/18/21 14:00 02/19/21 07:59 Metoprolol Tartrate 25 Mg Tab PO 25 mg BID [facility] Administration Sertraline HCl 50 mg 02/18/21 14:00 02/19/21 07:59 Sertraline 50 Mg Tab PO 50 mg DAILY [facility] Administration Ticagrelor 90 mg 02/18/21 21:00 02/19/21 07:59 Ticagrelor 90 Mg Tab PO 90 mg BID [facility] Administration Intake and Output 02/18/21 02/19/21 02/19/21 22:59 06:59 14:59 Intake Total 69.416 Balance 69.416 Intake: Intake, IV Titration 69.416 Amount Heparin Sod,Pork in 0.45% 69.416 NaCl 25,000 unit In 0.45 % NaCl 1 250ml.bag @ 7.5 UNITS/KG/HR 10.036 mls/hr IV .Q24H [facility] Rx#: [id number] Other: Weight 133.2 kg 02/17/21 22:52 02/17/21 22:52
[2021-02-19 16:53] LABS: Glucose,Whole Blood 169 mg/dL (75-99)
[2021-02-19] MEDS: carvediloL 6.25 MG TAB PO SCH (17:02)
[2021-02-19 20:35] LABS: Glucose,Whole Blood 215 mg/dL (75-99)
[2021-02-19] MEDS: INSULIN DETEMIR (LEVEMIR) 100 UNIT/ML SYR SQ SCH (21:06)
--- NOTE | 2021-02-20 01:25 | P.PN ---
Subjective Progress Note Date: 02/19/21 Principal diagnosis: NSTEMI Ms. Goyal is a 70-year-old female with a past medical history of coronary artery disease status post stenting, hypertension, hyperlipidemia, type 2 diabetes mellitus, obstructive sleep apnea on CPAP, thyroid disorder, DJD coming to the hospital with a chief complaint of chest heaviness and difficulty in breathing. Patient states that she went to bed last night and started to feel like having difficulty to breathe. She mentions that it was hurting to take in a deep breath. Patient denies having any recent travel. No history of recent surgeries. Patient denies having any syncopal episodes or loss of consciousness. In route to the hospital patient was having nausea and threw up a few times. Patient has significant past medical history of coronary artery disease, she had STEMI in July 2020, status post angioplasty of LAD and poorly controlled diabetes. Patient also complains of diabetic foot ulcers and diabetic neuropathy. At the time of admission patient's vitals temperature of 97.6, heart rate 86, respiratory rate 32, blood pressure 205 x 89 saturating at 89% on room air. In the ER EKG was obtained showing no new changes to the EKG. She had a first set of troponin which was less than 0.012 and a repeat was 0.266 On 02/19/2021 -patient was seen and examined at bedside. Patient states that the chest heaviness improved compared to yesterday. She also states that her shortness of breath has improved compared to yesterday. Denies having any chest pain or palpitations. No abdominal pain nausea vomiting or diarrhea. No dysuria or hematuria. Vitals temperature of 8.3, heart rate 70, respiratory 19, blood pressure 159 x 73 and saturating at 99% on 2 L of nasal cannula. No new labs from this morning. Active Medications Aspirin (Aspirin 81 Mg) 81 mg PO DAILY [facility] Last Admin: 02/19/21 07:58 Dose: 81 mg Documented by: Carvedilol (Carvedilol 6.25 Mg Tab) 6.25 mg PO BID-W/MEALS [facility] Last Admin: 02/19/21 17:02 Dose: 6.25 mg Documented by: Docusate Sodium (Docusate 100 Mg Cap) 100 mg PO BID PRN PRN Reason: Constipation Furosemide (Furosemide 10 Mg/Ml 4 Ml Vial) 40 mg IV Q12HR [facility] Last Admin: 02/19/21 21:03 Dose: 40 mg Documented by: Heparin Sodium (Porcine) (Heparin Sodium,Porcine 5,000 Unit/Ml 1 Ml Vial) 0 unit IV PER PROTOCOL PRN; Protocol PRN Reason: Low PTT Last Admin: 02/19/21 00:59 Dose: 6,000 unit Documented by: Hydrochlorothiazide (Hydrochlorothiazide 25 Mg Tab) 25 mg PO DAILY [facility] Last Admin: 02/19/21 07:58 Dose: 25 mg Documented by: Heparin Sodium/Sodium Chloride (25,000 unit/ Sodium Chloride) 250 mls @ 10.036 mls/hr IV .Q24H [facility]; Protocol Last Admin: 02/19/21 14:44 Dose: 10.5 units/kg/hr, 14.05 mls/hr Documented by: Insulin Aspart (Insulin Aspart (Novolog) 100 Unit/Ml Vial) 0 unit SQ ACHS [facility]; Protocol Last Admin: 02/19/21 21:06 Dose: 4 unit Documented by: Insulin Detemir (Insulin Detemir (Levemir) 100 Unit/Ml Syr) 60 unit SQ HS [facility] Last Admin: 02/19/21 21:06 Dose: 60 unit Documented by: Levothyroxine Sodium (Levothyroxine 50 Mcg Tab) 50 mcg PO QAM@0630 [facility] Last Admin: 02/19/21 06:00 Dose: 50 mcg Documented by: Liothyronine Sodium (Liothyronine Sodium 5 Mcg Tab) 5 mcg PO DAILY@0630 [facility] Last Admin: 02/19/21 06:00 Dose: 5 mcg Documented by: Lisinopril (Lisinopril 10 Mg Tab) 10 mg PO DAILY [facility] Last Admin: 02/19/21 07:59 Dose: 10 mg Documented by: Loratadine (Loratadine 10 Mg Tab) 10 mg PO DAILY PRN PRN Reason: Allergy Symptoms Last Admin: 02/18/21 14:31 Dose: 10 mg Documented by: Sertraline HCl (Sertraline 50 Mg Tab) 50 mg PO DAILY [facility] Last Admin: 02/19/21 07:59 Dose: 50 mg Documented by: Ticagrelor (Ticagrelor 90 Mg Tab) 90 mg PO BID [facility] Last Admin: 02/19/21 21:03 Dose: 90 mg Documented by: Objective - Vital Signs Vital signs: Vital Signs Temp 98.3 F 02/19/21 08:08 Pulse 70 02/19/21 08:08 Resp 19 02/19/21 08:08 BP 159/73 02/19/21 08:08 Pulse Ox 99 02/19/21 08:08 Intake & Output 02/18/21 02/19/21 02/19/21 18:59 06:59 18:59 Intake Total 69.416 Balance 69.416 Weight 133.81 kg 133.2 kg Intake: Intake, IV Titration 69.416 Amount Heparin Sod,Pork in 0.45% 69.416 NaCl 25,000 unit In 0.45 % NaCl 1 250ml.bag @ 7.5 UNITS/KG/HR 10.036 mls/hr IV .Q24H [facility] Rx#: [id number] Other: # Voids 1 - Exam PHYSICAL EXAMINATION: GENERAL: The patient is alert and oriented x3, not in any acute distress. Lying in bed . HEENT: Pupils are round and equally reacting to light. EOMI. No scleral icterus. No pallor. CARDIOVASCULAR: S1 and S2 present. PULMONARY: Bilateral clear breath sounds. No crackles at the lower lung bases. ABDOMEN: Abdomen is soft. Nontender. Nondistended. Normal bowel sounds. MUSCULOSKELETAL: No joint swelling or deformity. EXTREMITIES: No cyanosis, clubbing, or pedal edema. Diabetic ulcer on the right 2 nd toe, no signs of infection. NEUROLOGICAL: Gross neurological examination did not reveal any focal deficits. SKIN: No rashes. - Labs CBC & Chem 7: 02/17/21 22:52 02/17/21 22:52 Labs: Abnormal Lab Results - Last 24 Hours (Table) 02/18/21 02/18/21 02/18/21 Range/Units 15:52 18:05 18:30 APTT (22.0-30.0) sec POC Glucose (mg/dL) 308 H (75-99) mg/dL Troponin I 0.266 H* 0.272 H* (0.000-0.034) ng/mL 02/18/21 02/18/21 02/19/21 Range/Units 20:29 23:25 06:57 APTT 32.3 H (22.0-30.0) sec POC Glucose (mg/dL) 306 H 110 H (75-99) mg/dL Troponin I (0.000-0.034) ng/mL 02/19/21 02/19/21 Range/Units 09:38 11:38 APTT 57.3 H (22.0-30.0) sec POC Glucose (mg/dL) 214 H (75-99) mg/dL Troponin I (0.000-0.034) ng/mL Assessment and Plan Assessment: ASSESSMENT Non-ST elevation ND Hypertensive urgency Coronary artery disease status post stenting of LAD in July 2020 Type 2 diabetes mellitus Acute on chronic exacerbation of CHF Systolic congestive heart failure ejection fraction 40 to 45% Hypertension Hyperlipidemia Morbid obesity with BMI of 46 Sleep apnea History of TIA/TIA Hypothyroidism Diabetic foot ulcers Diabetic neuropathy Multijoint osteoarthritis CKD stage II PLAN: Patient to be continued on the IV heparin drip. Cardiology has been consulted and evaluated the patient and started her on Coreg. Continue with the rest of her current medication regimen further recommendations depending on the progress with patient. Patient's blood sugars have been running high will adjust the dose of insulin depending upon blood sugars. Further recommendations to follow depending on the progress of the patient
[2021-02-20] MEDS: HEPARIN SOD,PORK IN 0.45% NACL 25,000 UNIT in 0.45% NACL 1 250ML.BAG IV SCH (05:02)
[2021-02-20] MEDS: LIOTHYRONINE SODIUM 5 MCG TAB PO SCH (05:40)
[2021-02-20] MEDS: LEVOTHYROXINE 50 MCG TAB PO SCH (05:40)
[2021-02-20 07:12] LABS: Glucose,Whole Blood 173 mg/dL (75-99)
[2021-02-20] MEDS: hydroCHLOROthiazide 25 MG TAB PO SCH (07:57)
[2021-02-20] MEDS: ASPIRIN 81 MG PO SCH (07:57)
[2021-02-20] MEDS: carvediloL 6.25 MG TAB PO SCH ×2 (07:57→17:30)
[2021-02-20] MEDS: FUROSEMIDE 10 MG/ML 4 ML VIAL IV SCH (07:58)
[2021-02-20] MEDS: lisinopriL 10 MG TAB PO SCH (07:58)
[2021-02-20] MEDS: INSULIN ASPART (NovoLOG) 100 UNIT/ML VIAL SQ SCH ×4 (07:58→20:35)
[2021-02-20] MEDS: SERTRALINE 50 MG TAB PO SCH (07:58)
[2021-02-20] MEDS: TICAGRELOR 90 MG TAB PO SCH ×2 (07:58→20:34)
[2021-02-20 09:20] LABS: Basophils % (A) 0 %; Eosinophils # (A) 0.4 k/uL (0-0.7); Eosinophils % (A) 5 %; HCT 33.7 % (34.0-46.0); HGB 11.5 gm/dL (11.4-16.0); Lymphocytes # (A) 2.4 k/uL (1.0-4.8); Lymphocytes % (A) 24 %; MCHC 34.1 g/dL (31.0-37.0); MCV 79.1 fL (80.0-100.0); Monocytes # (A) 0.6 k/uL (0-1.0); Monocytes % (A) 6 %; Neutrophils # (A) 6.3 k/uL (1.3-7.7); Neutrophils % (A) 63 %; Platelet Count 259 k/uL (150-450); RBC 4.27 m/uL (3.80-5.40); RDW 15.4 % (11.5-15.5)
[2021-02-20 09:36] LABS: African American GFR (CKD) 52 (>60 ml/min/1.73 sqM); Anion Gap 8 mmol/L; Blood Urea Nitrogen 39 mg/dL (7-17); Calcium 9.9 mg/dL (8.4-10.2); Carbon Dioxide 30 mmol/L (22-30); Chloride 98 mmol/L (98-107); Glucose 247 mg/dL (74-99); Non-African American GFR(CKD) 45 (>60 ml/min/1.73 sqM); Potassium 4.3 mmol/L (3.5-5.1); Sodium 136 mmol/L (137-145)
[2021-02-20 11:21] LABS: Glucose,Whole Blood 225 mg/dL (75-99)
--- NOTE | 2021-02-20 12:17 | P.PN ---
Subjective Progress Note Date: 02/20/21 The patient is a 71-year-old male who is currently admitted to the hospital with congestive heart failure. She states she continues to have mild shortness of breath, but does believe it is slightly improved. She denies any chest pain or chest pressure. No palpitations, dizziness, or lightheadedness. The patient has been receiving furosemide 40 mg twice a day since her admission, however her weight has not reflected fluid loss. The patient does feel as though she is voiding more frequently than she doesn't home. She states despite home Lasix use she typically only voids 3-4 times per day. GENERAL: Well-appearing, well-nourished and in no acute distress. NECK: Supple without JVD or thyromegaly. LUNGS: Breath sounds diminished to auscultation bilaterally. Respiration equal and unlabored. No wheezes, rales or rhonchi. HEART: Regular rate and rhythm without murmurs, rubs or gallops. S1 and S2 heard. EXTREMITIES: Normal range of motion, 3+ lower extremity pitting edema. No clubbing or cyanosis. Peripheral pulses intact; diminished on the left. VITALS: Blood pressure 144/70, SpO2 97% on 2 L nasal cannula, respiratory rate 19, pulse rate 94, temperature 98.1F TELEMETRY: Sinus rhythm to sinus tachycardia in the low 90s LABS: WBC 10.0, hemoglobin 11.5, hematocrit 33.7, platelet 259, sodium 136, potassium 4.3, BUN 39, creatinine 1.19 IMPRESSION: Congestive heart failure, elevated BNP Ischemic cardiomyopathy, EF 40-45% Coronary artery disease, recent stenting in June and July 2020 Diabetes mellitus, poorly controlled Obesity, BMI 47 Chronic venous insufficiency Elevated troponins, secondary to congestive heart failure PLAN: Continue IV diuretics for 1 more day Strict I&O's Low-sodium diet Leg elevation and compression pumps Further recommendations based on clinical course The patient has been seen and evaluated. Plan of care has been reviewed and agreed upon by Dr Rivera. Objective - Vital Signs Vital signs: Vital Signs Temp 98.1 F 02/20/21 08:00 Pulse 94 02/20/21 08:00 Resp 19 02/20/21 08:00 BP 144/70 02/20/21 08:00 Pulse Ox 97 02/20/21 08:00 Intake & Output 02/19/21 02/20/21 02/20/21 18:59 06:59 18:59 Intake Total 194.358 200.915 Balance 194.358 200.915 Weight 133.2 kg Intake: Intake, IV Titration 194.358 200.915 Amount Heparin Sod,Pork in 0.45% 194.358 200.915 NaCl 25,000 unit In 0.45 % NaCl 1 250ml.bag @ 7.5 UNITS/KG/HR 10.036 mls/hr IV .Q24H [facility] Rx#: [id number] Other: # Voids 1 - Labs CBC & Chem 7: 02/20/21 08:05 02/20/21 08:05 Labs: Abnormal Lab Results - Last 24 Hours (Table) 02/19/21 02/19/21 02/20/21 Range/Units 16:51 20:32 07:11 Hct (34.0-46.0) % MCV (80.0-100.0) fL APTT (22.0-30.0) sec Sodium (137-145) mmol/L BUN (7-17) mg/dL Creatinine (0.52-1.04) mg/dL Glucose (74-99) mg/dL POC Glucose (mg/dL) 169 H 215 H 173 H (75-99) mg/dL 02/20/21 02/20/21 02/20/21 Range/Units 08:05 08:05 08:05 Hct 33.7 L (34.0-46.0) % MCV 79.1 L (80.0-100.0) fL APTT 60.3 H (22.0-30.0) sec Sodium 136 L (137-145) mmol/L BUN 39 H (7-17) mg/dL Creatinine 1.19 H (0.52-1.04) mg/dL Glucose 247 H (74-99) mg/dL POC Glucose (mg/dL) (75-99) mg/dL 02/20/21 Range/Units 11:19 Hct (34.0-46.0) % MCV (80.0-100.0) fL APTT (22.0-30.0) sec Sodium (137-145) mmol/L BUN (7-17) mg/dL Creatinine (0.52-1.04) mg/dL Glucose (74-99) mg/dL POC Glucose (mg/dL) 225 H (75-99) mg/dL
[2021-02-20 16:33] LABS: Glucose,Whole Blood 250 mg/dL (75-99)
[2021-02-20 20:12] LABS: Glucose,Whole Blood 230 mg/dL (75-99)
[2021-02-20] MEDS: INSULIN DETEMIR (LEVEMIR) 100 UNIT/ML SYR SQ SCH (20:34)
--- NOTE | 2021-02-21 00:32 | P.PN ---
Subjective Progress Note Date: 02/20/21 Principal diagnosis: NSTEMI Ms. Goyal is a 70-year-old female with a past medical history of coronary artery disease status post stenting, hypertension, hyperlipidemia, type 2 diabetes mellitus, obstructive sleep apnea on CPAP, thyroid disorder, DJD coming to the hospital with a chief complaint of chest heaviness and difficulty in breathing. Patient states that she went to bed last night and started to feel like having difficulty to breathe. She mentions that it was hurting to take in a deep breath. Patient denies having any recent travel. No history of recent surgeries. Patient denies having any syncopal episodes or loss of consciousness. In route to the hospital patient was having nausea and threw up a few times. Patient has significant past medical history of coronary artery disease, she had STEMI in July 2020, status post angioplasty of LAD and poorly controlled diabetes. Patient also complains of diabetic foot ulcers and diabetic neuropathy. At the time of admission patient's vitals temperature of 97.6, heart rate 86, respiratory rate 32, blood pressure 205 x 89 saturating at 89% on room air. In the ER EKG was obtained showing no new changes to the EKG. She had a first set of troponin which was less than 0.012 and a repeat was 0.266 On 02/19/2021 -patient was seen and examined at bedside. Patient states that the chest heaviness improved compared to yesterday. She also states that her shortness of breath has improved compared to yesterday. Denies having any chest pain or palpitations. No abdominal pain nausea vomiting or diarrhea. No dysuria or hematuria. Vitals temperature of 8.3, heart rate 70, respiratory 19, blood pressure 159 x 73 and saturating at 99% on 2 L of nasal cannula. No new labs from this morning. On 02/20/2021 -patient is seen and examined at bedside. She is comfortably sitting in a chair by the bedside appears to be no acute distress. She denies having any chest pain or palpitations. Her difficulty in breathing is still the same. She denies having any fever chills or rigors. No abdominal pain nausea vomiting or diarrhea. No dysuria or hematuria. On reviewing her vitals temperature of 98.0, heart rate 72, respiratory rate 18, blood pressure 135/72, saturating at 99% on 2 L of oxygen. On reviewing her labs white count of 10, hemoglobin 9.5, platelets 259. Sodium 136, potassium 4.3, chloride 98, bicarb 30, BUN 39, creatinine 1.19. Active Medications Aspirin (Aspirin 81 Mg) 81 mg PO DAILY [facility] Last Admin: 02/20/21 07:57 Dose: 81 mg Documented by: Carvedilol (Carvedilol 6.25 Mg Tab) 6.25 mg PO BID-W/MEALS [facility] Last Admin: 02/20/21 17:30 Dose: 6.25 mg Documented by: Docusate Sodium (Docusate 100 Mg Cap) 100 mg PO BID PRN PRN Reason: Constipation Furosemide (Furosemide 40 Mg Tab) 40 mg PO DAILY [facility] Hydrochlorothiazide (Hydrochlorothiazide 25 Mg Tab) 25 mg PO DAILY [facility] Last Admin: 02/20/21 07:57 Dose: 25 mg Documented by: Insulin Aspart (Insulin Aspart (Novolog) 100 Unit/Ml Vial) 0 unit SQ [facility]; Protocol Last Admin: 02/20/21 20:35 Dose: 5 unit Documented by: Insulin Detemir (Insulin Detemir (Levemir) 100 Unit/Ml Syr) 60 unit SQ HS [facility] Last Admin: 02/20/21 20:34 Dose: 60 unit Documented by: Levothyroxine Sodium (Levothyroxine 50 Mcg Tab) 50 mcg PO QAM@0630 [facility] Last Admin: 02/20/21 05:40 Dose: 50 mcg Documented by: Liothyronine Sodium (Liothyronine Sodium 5 Mcg Tab) 5 mcg PO DAILY@0630 [facility] Last Admin: 02/20/21 05:40 Dose: 5 mcg Documented by: Lisinopril (Lisinopril 10 Mg Tab) 10 mg PO DAILY [facility] Last Admin: 02/20/21 07:58 Dose: 10 mg Documented by: Loratadine (Loratadine 10 Mg Tab) 10 mg PO DAILY PRN PRN Reason: Allergy Symptoms Last Admin: 02/18/21 14:31 Dose: 10 mg Documented by: Sertraline HCl (Sertraline 50 Mg Tab) 50 mg PO DAILY [facility] Last Admin: 02/20/21 07:58 Dose: 50 mg Documented by: Ticagrelor (Ticagrelor 90 Mg Tab) 90 mg PO BID [facility] Last Admin: 02/20/21 20:34 Dose: 90 mg Documented by: Objective - Vital Signs Vital signs: Vital Signs Temp 98.0 F 02/20/21 14:10 Pulse 72 02/20/21 14:10 Resp 18 02/20/21 14:10 BP 135/72 02/20/21 14:10 Pulse Ox 99 02/20/21 14:10 Intake & Output 02/19/21 02/20/21 02/20/21 18:59 06:59 18:59 Intake Total 194.358 200.915 100.692 Output Total 700 Balance 194.358 200.915 -599.308 Weight 133.2 kg Intake: Intake, IV Titration 194.358 200.915 100.692 Amount Heparin Sod,Pork in 0.45% 194.358 200.915 100.692 NaCl 25,000 unit In 0.45 % NaCl 1 250ml.bag @ 7.5 UNITS/KG/HR 10.036 mls/hr IV .Q24H [facility] Rx#: [id number] Output: Urine 700 Other: # Voids 1 - Exam PHYSICAL EXAMINATION: GENERAL: The patient is alert and oriented x3, not in any acute distress. HEENT: Pupils are round and equally reacting to light. EOMI. No scleral icterus. No pallor. CARDIOVASCULAR: S1 and S2 present. PULMONARY: Bilateral clear breath sounds. No crackles at the lower lung bases. ABDOMEN: Abdomen is soft. Nontender. Nondistended. Normal bowel sounds. MUSCULOSKELETAL: No joint swelling or deformity. EXTREMITIES: No cyanosis, clubbing, or pedal edema. Diabetic ulcer on the right 2 nd toe, no signs of infection. NEUROLOGICAL: Gross neurological examination did not reveal any focal deficits. SKIN: No rashes. - Labs CBC & Chem 7: 02/20/21 08:05 02/20/21 08:05 Labs: Abnormal Lab Results - Last 24 Hours (Table) 02/19/21 02/19/21 02/20/21 Range/Units 16:51 20:32 07:11 Hct (34.0-46.0) % MCV (80.0-100.0) fL APTT (22.0-30.0) sec Sodium (137-145) mmol/L BUN (7-17) mg/dL Creatinine (0.52-1.04) mg/dL Glucose (74-99) mg/dL POC Glucose (mg/dL) 169 H 215 H 173 H (75-99) mg/dL 02/20/21 02/20/21 02/20/21 Range/Units 08:05 08:05 08:05 Hct 33.7 L (34.0-46.0) % MCV 79.1 L (80.0-100.0) fL APTT 60.3 H (22.0-30.0) sec Sodium 136 L (137-145) mmol/L BUN 39 H (7-17) mg/dL Creatinine 1.19 H (0.52-1.04) mg/dL Glucose 247 H (74-99) mg/dL POC Glucose (mg/dL) (75-99) mg/dL 02/20/21 Range/Units 11:19 Hct (34.0-46.0) % MCV (80.0-100.0) fL APTT (22.0-30.0) sec Sodium (137-145) mmol/L BUN (7-17) mg/dL Creatinine (0.52-1.04) mg/dL Glucose (74-99) mg/dL POC Glucose (mg/dL) 225 H (75-99) mg/dL Assessment and Plan Assessment: ASSESSMENT Non-ST elevation HI Hypertensive urgency Coronary artery disease status post stenting of LAD in July 2020 Type 2 diabetes mellitus Acute on chronic exacerbation of CHF Systolic congestive heart failure ejection fraction 40 to 45% Hypertension Hyperlipidemia Morbid obesity with BMI of 46 Sleep apnea History of TIA/TIA Hypothyroidism Diabetic foot ulcers Diabetic neuropathy Multijoint osteoarthritis CKD stage II PLAN: IV heparin drip has been discontinued. She is on IV Diuretics, Creatinine is stable. Patient's blood sugars have been running high will adjust the dose of insulin depending upon blood sugars. Continue with the rest of her current medication regimen further recommendations depending on the progress with patient. Discussed at length with the patient about being compliant with medications, diet and low-sodium and low-salt diet. Further recommendations to follow depending on the progress of the patient
[2021-02-21] MEDS: LEVOTHYROXINE 50 MCG TAB PO SCH (05:58)
[2021-02-21] MEDS: LIOTHYRONINE SODIUM 5 MCG TAB PO SCH (05:58)
[2021-02-21 06:47] LABS: Glucose,Whole Blood 147 mg/dL (75-99)
[2021-02-21] MEDS: SERTRALINE 50 MG TAB PO SCH (07:32)
[2021-02-21] MEDS: TICAGRELOR 90 MG TAB PO SCH (07:32)
[2021-02-21] MEDS: ASPIRIN 81 MG PO SCH (07:32)
[2021-02-21] MEDS: hydroCHLOROthiazide 25 MG TAB PO SCH (07:32)
[2021-02-21] MEDS: carvediloL 6.25 MG TAB PO SCH (07:32)
[2021-02-21] MEDS: INSULIN ASPART (NovoLOG) 100 UNIT/ML VIAL SQ SCH ×2 (07:32→13:11)
[2021-02-21] MEDS: lisinopriL 10 MG TAB PO SCH (07:32)
[2021-02-21 08:46] LABS: Basophils # (A) 0.04 X 10*3/uL (0.00-0.10); Basophils % (A) 0.4 %; Eosinophils # (A) 0.49 X 10*3/uL (0.04-0.35); Eosinophils % (A) 4.7 %; HCT 35.9 % (37.2-46.3); HGB 11.2 g/dL (12.0-15.0); Lymphocytes # (A) 2.33 X 10*3/uL (0.90-5.00); Lymphocytes % (A) 22.6 %; MCH 25.7 pg (27.0-32.0); MCHC 31.2 g/dL (32.0-37.0); MCV 82.5 fL (80.0-97.0); Mean Platelet Volume 9.8 fL (9.5-12.2); Monocytes # (A) 0.82 X 10*3/uL (0.20-1.00); Monocytes % (A) 7.9 %; Neutrophils # (A) 6.61 X 10*3/uL (1.80-7.70); Platelet Count 276 X 10*3/uL (140-440); RBC 4.35 X 10*6/uL (4.10-5.20); RDW 14.9 % (11.5-14.5); WBC 10.33 X 10*3/uL (4.50-10.00)
[2021-02-21 08:47] VITALS: RESP 18
[2021-02-21] MEDS ORDERED: FUROSEMIDE 40 MG TAB PO SCH (09:00)
[2021-02-21 09:23] LABS: African American GFR (CKD) 47.1 (60.0-200.0); Anion Gap 6.2 mmol/L (4.00-12.00); BUN/Creat Ratio 33.85 Ratio (12.00-20.00); Calcium 9.7 mg/dL (8.7-10.3); Carbon Dioxide 29.8 mmol/L (21.6-31.8); Non-African American GFR(CKD) 40.7 (60.0-200.0)
[2021-02-21 11:55] LABS: Glucose,Whole Blood 193 mg/dL (75-99)
--- NOTE | 2021-02-21 14:20 | P.PN ---
Subjective The patient is a 71-year-old female with past medical history of coronary artery disease status post stenting in June and July 2020, obesity, diabetes, and hypertension, who presented to the hospital with worsening shortness of breath. The patient follows with Dr. Acevedo in the office. The patient states she started developing increased shortness of breath over the last several days, however it became most apparent last night when she went to bed. She developed heaviness in her chest, however denies any chest pain that would indicate she was having a heart attack. She states her discomfort in her chest did not feel like it did prior to her stents. EKG showed sinus rhythm with no ST or T-wave changes. Chest x-ray shows enlarged cardiac silhouette with mild interstitial pulmonary edema consistent with congestive heart failure. BNP 2150, sCr 0.92, torponin negative 0.12-->0.26-->0.27. 02/21/21: The patient was interviewed and examined sitting comfortably in her recliner chair. IV Lasix switched to PO yesterday due to AYSHA, rise in serum creatinine from 0.92 to 1.19, serum creatinine now 1.3. Patient is currently being mainta ined on coreg 6.25mg BID, Lisinopril 10 daily, Lasix 40mg PO daily, hydrochlorothiazide 25mg daily, Brilinta 90mg BID. PHYSICAL EXAMINATION: Vital Signs: BP 136/78 HR 71 This is a 71-year-old obese female in no apparent distress at the time of my examination. HEENT: Head is atraumatic, normocephalic. Pupils are equal, round. Sclerae anicteric. Conjunctivae are clear. Mucous membranes of the mouth are moist. Neck is supple. There is no jugular venous distention. No carotid bruit is heard. CHEST EXAMINATION: Lungs are clear to auscultation. No chest wall tenderness is noted on palpation or with deep breathing. HEART EXAMINATION: Heart regular rate and rhythm. S1, S2 heard. No murmurs, gal lops or rub. ABDOMEN: Soft, nontender. Bowel sounds are heard. No organomegaly noted. EXTREMITIES: 2+ peripheral on the right. Faint pedal pulse on the left. +2 bilateral pitting edema. no calf tenderness noted. NEUROLOGIC EXAMINATION: Patient is awake, alert and oriented x3. FINAL ASSESSMENT AND PLAN: Congestive heart failure, elevated BNP Ischemic cardiomyopathy, known ejection fraction of 40-45% Coronary artery disease, stenting in June 2020 with subsequent in stent restenosis in July Diabetes mellitus, poorly controlled Obesity, BMI 47 Venous insufficiency Elevated troponins, likely secondary to congestive heart failure PLAN: -Ok to be discharged from cardiology standpoint -Continue coreg 6.25mg BID, Lisinopril 10 daily (increased from 2.5mg PO daily), Lasix 40mg PO daily, hydrochlorothiazide 25mg daily, Brilinta 90mg BID. -Discontinue metoprolol tartrate -Patient to monitor I/Os and weight at home. -Patient to follow with Dr. Acevedo in 2-3 weeks. The patient has been seen and evaluated. Plan of care has been reviewed and agreed upon by Dr. Lynn Objective - Vital Signs Vital signs: Vital Signs Temp 98.0 F 02/20/21 14:10 Pulse 72 02/20/21 14:10 Resp 18 02/20/21 14:10 BP 135/72 02/20/21 14:10 Pulse Ox 99 02/20/21 14:10 Intake & Output 02/19/21 02/20/21 02/20/21 18:59 06:59 18:59 Intake Total 194.358 200.915 100.692 Output Total 700 Balance 194.358 200.915 -599.308 Weight 133.2 kg Intake: Intake, IV Titration 194.358 200.915 100.692 Amount Heparin Sod,Pork in 0.45% 194.358 200.915 100.692 NaCl 25,000 unit In 0.45 % NaCl 1 250ml.bag @ 7.5 UNITS/KG/HR 10.036 mls/hr IV .Q24H [facility] Rx#: [id number] Output: Urine 700 Other: # Voids 1 - Labs CBC & Chem 7: 02/21/21 06:06 02/21/21 06:06 Labs: Abnormal Lab Results - Last 24 Hours (Table) 02/19/21 02/19/21 02/20/21 Range/Units 16:51 20:32 07:11 Hct (34.0-46.0) % MCV (80.0-100.0) fL APTT (22.0-30.0) sec Sodium (137-145) mmol/L BUN (7-17) mg/dL Creatinine (0.52-1.04) mg/dL Glucose (74-99) mg/dL POC Glucose (mg/dL) 169 H 215 H 173 H (75-99) mg/dL 02/20/21 02/20/21 02/20/21 Range/Units 08:05 08:05 08:05 Hct 33.7 L (34.0-46.0) % MCV 79.1 L (80.0-100.0) fL APTT 60.3 H (22.0-30.0) sec Sodium 136 L (137-145) mmol/L BUN 39 H (7-17) mg/dL Creatinine 1.19 H (0.52-1.04) mg/dL Glucose 247 H (74-99) mg/dL POC Glucose (mg/dL) (75-99) mg/dL 02/20/21 02/20/21 Range/Units 11:19 16:32 Hct (34.0-46.0) % MCV (80.0-100.0) fL APTT (22.0-30.0) sec Sodium (137-145) mmol/L BUN (7-17) mg/dL Creatinine (0.52-1.04) mg/dL Glucose (74-99) mg/dL POC Glucose (mg/dL) 225 H 250 H (75-99) mg/dL
--- NOTE | 2021-02-21 14:56 | P.DS ---
Providers Date of admission: 02/18/21 03:23 Expected date of discharge: 02/21/21 Attending physician: Orestes Morrison Consults: 02/18/21 13:47 Consult Physician Urgent Consulting Provider: Darshana Rosas Consult Reason/Comments: CHF Do you want consulting provider notified?: Yes Placement Type Exists?: Yes Primary care physician: Boris Galenao MD Hospital Course: Final Diagnoses: Acute on chronic CHF exacerbation, systolic dysfunction, EF 40-45% Ischemic cardiomyopathy Elevated troponins, related to the above, CHF, as per cardiology Coronary artery disease, stenting in June 2020 with subsequent in stent restenosis in July Hypertensive urgency, resolved Acute on CKD stage II Diabetes mellitus type 2 Hypertension Hyperlipidemia Morbid obesity ,BMI of 47 Sleep apnea History of TIA/TIA Hypothyroidism Diabetic neuropathy Multijoint osteoarthritis Hospital course: This is a 71-year-old female admitted with acute on chronic CHF exacerbation, acute on chronic renal failure and multiple other medical issues. Evaluated by cardiology, diuresed on Lasix IV push, further medication adjustments with significant clinical improvement. Cleared by cardiology for discharge. Patient is being discharged home in a stable condition with guarded prognosis. The impression and plan of care has been dictated as directed. : I performed a history and examination of this patient, discussed the same with the dictator. I agree with the dictator's note ,documented as a scribe. Any additional findings or plans will be noted. Patient Condition at Discharge: Stable Plan - Discharge Summary Discharge Rx Participant: No New Discharge Prescriptions: New Furosemide [Lasix] 40 mg PO DAILY #30 tab lisinopriL [Zestril] 10 mg PO DAILY #30 tab carvediloL [Coreg] 6.25 mg PO BID-W/MEALS #60 tab Continue Insulin Glargine [Lantus] 60 unit SQ HS Levothyroxine Sodium [Synthroid] 50 mcg PO QAM Nitroglycerin Sl Tabs [Nitrostat] 0.4 mg SUBLINGUAL Q5M PRN #25 tab PRN Reason: Chest Pain Liothyronine Sodium [Cytomel] 5 mcg PO DAILY Sertraline HCl [Zoloft] 50 mg PO DAILY Cetirizine HCl [Zyrtec] 10 mg PO DAILY PRN PRN Reason: Allergy Symptoms Docusate [Colace] 100 mg PO BID PRN PRN Reason: Constipation Calcium Carbonate [Calcium] 600 mg PO DAILY hydroCHLOROthiazide [Hydrodiuril] 25 mg PO DAILY #30 tab Aspirin 81 mg PO DAILY #30 chew Ticagrelor [Brilinta] 90 mg PO BID #60 tab Cholecalciferol (Vitamin D3) [Vitamin D3 (5000 Iu)] 125 mcg PO DAILY INSULIN ASPART (NovoLOG) [NovoLOG (formulary)] See Protocol SQ ACHS Discontinued Metoprolol Tartrate [Lopressor] 25 mg PO BID lisinopriL [Zestril] 2.5 mg PO DAILY Niacin (Inositol Niacinate) [Niacin 500 mg Capsule] 500 mg PO DAILY Discharge Medication List Insulin Glargine [Lantus] 60 unit SQ HS 04/26/15 [History] Levothyroxine Sodium [Synthroid] 50 mcg PO QAM 08/21/17 [History] Nitroglycerin Sl Tabs [Nitrostat] 0.4 mg SUBLINGUAL Q5M PRN #25 tab 09/20/18 [Rx] Cetirizine HCl [Zyrtec] 10 mg PO DAILY PRN 05/06/20 [History] Liothyronine Sodium [Cytomel] 5 mcg PO DAILY 05/06/20 [History] Sertraline HCl [Zoloft] 50 mg PO DAILY 05/06/20 [History] Calcium Carbonate [Calcium] 600 mg PO DAILY 07/15/20 [History] Docusate [Colace] 100 mg PO BID PRN 07/15/20 [History] hydroCHLOROthiazide [Hydrodiuril] 25 mg PO DAILY #30 tab 07/20/20 [Rx] Aspirin 81 mg PO DAILY #30 chew 08/01/20 [Rx] Ticagrelor [Brilinta] 90 mg PO BID #60 tab 08/01/20 [Rx] Cholecalciferol (Vitamin D3) [Vitamin D3 (5000 Iu)] 125 mcg PO DAILY 02/18/21 [History] INSULIN ASPART (NovoLOG) [NovoLOG (formulary)] See Protocol SQ ACHS 02/18/21 [History] Furosemide [Lasix] 40 mg PO DAILY #30 tab 02/21/21 [Rx] carvediloL [Coreg] 6.25 mg PO BID-W/MEALS #60 tab 02/21/21 [Rx] lisinopriL [Zestril] 10 mg PO DAILY #30 tab 02/21/21 [Rx] Follow up Appointment(s)/Referral(s): Boris Galeano MD [Primary Care Provider] - 02/25/21 12:00 pm (follow up appt Sunday @ 12:00 and [facility] office.) Joshua Acevedo MD [STAFF PHYSICIAN] - 2 Weeks Ambulatory/Diagnostic Orders: Complete Blood Count w/diff [LAB.AMB] Time Frame: 3 Days, Location: None Selected Patient Instructions/Handouts: Heart Failure (DC)
[2021-02-21 16:10] VITALS: BP 181/67; PULSE 82; TEMP 97.8
== END 2021-02-21 17:05 | disposition home or self-care (01) | DRG 291 ==
LOC: EC 22:30 → 3SCARD 02-18 03:23 → 4SSUR 02-18 16:47
PROVIDERS: ADMIT Internal Medicine; ATTEND Internal Medicine
DX: I13.0 Hypertensive heart and chronic kidney disease with heart failure and stage 1 through stage 4 chronic kidney disease, or unspecified chronic kidney disease (principal); I50.23 Acute on chronic systolic (congestive) heart failure; Z68.42 Body mass index [BMI] 45.0-49.9, adult; N17.9 Acute kidney failure, unspecified; I25.10 Atherosclerotic heart disease of native coronary artery without angina pectoris; G47.33 Obstructive sleep apnea (adult) (pediatric); M19.90 Unspecified osteoarthritis, unspecified site; E11.40 Type 2 diabetes mellitus with diabetic neuropathy, unspecified; Z20.828 Contact with and (suspected) exposure to other viral communicable diseases; Z86.73 Personal history of transient ischemic attack (TIA), and cerebral infarction without residual deficits; I25.5 Ischemic cardiomyopathy; E11.319 Type 2 diabetes mellitus with unspecified diabetic retinopathy without macular edema; I25.2 Old myocardial infarction; E03.9 Hypothyroidism, unspecified; Z80.1 Family history of malignant neoplasm of trachea, bronchus and lung; Z82.49 Family history of ischemic heart disease and other diseases of the circulatory system; Z79.4 Long term (current) use of insulin; Z79.82 Long term (current) use of aspirin; Z79.02 Long term (current) use of antithrombotics/antiplatelets; I16.0 Hypertensive urgency; Z95.5 Presence of coronary angioplasty implant and graft; E66.01 Morbid (severe) obesity due to excess calories; E11.621 Type 2 diabetes mellitus with foot ulcer; N18.2 Chronic kidney disease, stage 2 (mild); E11.22 Type 2 diabetes mellitus with diabetic chronic kidney disease; I87.2 Venous insufficiency (chronic) (peripheral); E78.5 Hyperlipidemia, unspecified; Z79.890 Hormone replacement therapy; M81.0 Age-related osteoporosis without current pathological fracture; Z80.7 Family history of other malignant neoplasms of lymphoid, hematopoietic and related tissues; Z90.710 Acquired absence of both cervix and uterus; Z80.8 Family history of malignant neoplasm of other organs or systems; K76.0 Fatty (change of) liver, not elsewhere classified; K59.00 Constipation, unspecified; H91.90 Unspecified hearing loss, unspecified ear; H54.3 Unqualified visual loss, both eyes; L97.509 Non-pressure chronic ulcer of other part of unspecified foot with unspecified severity; R77.8 Other specified abnormalities of plasma proteins
CPT/HCPCS: 36415; 71046; 80048; 80053; 83880; 84484; 85025; 85610; 85730; 87635; 93005; 94760

== ENCOUNTER → 2021-03-15 | Outpatient (CLI) | payer MEDICARE ==
--- NOTE | 2021-03-15 14:22 | XR ---
EXAMINATION TYPE: XR foot complete bilateral DATE OF EXAM: 03/15/2021 CLINICAL HISTORY: Crushing injury with pain TECHNIQUE: Frontal, lateral, and oblique images of the bilateral feet are obtained. COMPARISON: Right foot x-ray December 09, 2019 FINDINGS: Demineralization is present. There is oblique well-defined suspect old incomplete union fra cture mid to distal diaphysis fifth metatarsal in the left foot. Moderate to large size inferior calc aneal spur. Mild to moderate spurring dorsal aspect midfoot level left foot. [id number] diffuse subcutaneous edema. Transverse irregular lucency distal diaphysis fourth middle phalanx suspicious f or acute fracture on frontal and oblique images. Images of the right foot show varus positioning and flexion distal third and fifth toes. There is wid ening of the fourth PIP joint, suspect possible prior partial osteotomy. Narrowing at the Lisfranc singh ints is present bilaterally more prominent in the right foot with prominent right-sided dorsal spurri ng. Moderate size inferior calcaneal spur. No acute fracture or dislocation is seen. Mild to moderate diffuse subcutaneous edema greatest at ankle level. IMPRESSION: There is a suspected acute transverse minimally displaced fracture distal diaphysis four th middle phalanx left foot.
--- NOTE | 2021-03-15 14:27 | XR ---
EXAMINATION TYPE: XR tibia fibula bilateral DATE OF EXAM: 03/15/2021 CLINICAL HISTORY: Crushing injury with pain. TECHNIQUE: Two views of the bilateral legs are obtained. COMPARISON: None. FINDINGS: [place] osseous structures are somewhat demineralized. There is no acute fracture or disloc ation seen in either lower tibia or fibula. Moderate tricompartment joint space [place] spurring of gladis th knees. Ankle mortise symmetry is maintained bilaterally. Moderate symmetric soft tissue subcutaneo us edema noted. IMPRESSION: There is no acute fracture or dislocation seen in either leg.
== END | disposition home or self-care (01) ==
LOC: RADXRMAIN 13:10
PROVIDERS: ATTEND Family Medicine
DX: S87.82XA Crushing injury of left lower leg, initial encounter (principal); S92.901A Unspecified fracture of right foot, initial encounter for closed fracture

== ENCOUNTER 2021-04-07 03:29 | Observation (INO) | payer MEDICARE ==
[2021-04-07] MEDS ORDERED: SODIUM CHLORIDE 0.9% 1,000 ML IV STA ×2 (03:32)
[2021-04-07] MEDS ORDERED: ONDANSETRON 4 MG/2 ML VIAL IVP STA (03:32)
--- NOTE | 2021-04-07 03:32 | ED ---
Nausea/Vomiting/Diarrhea HPI - General Stated complaint: Vomiting Time Seen by Provider: 04/07/21 03:31 Source: RN notes reviewed, old records reviewed Mode of arrival: EMS Limitations: no limitations - History of Present Illness Initial comments: This is a 71-year-old female DF for evaluation of nausea and vomiting not feeling well right lower quadrant abdominal pain cramping. History of hysterectomy. MD complaint: nausea, vomiting, abdominal pain -: hour(s) Description of Vomiting: food contents, watery Description of Diarrhea: other (none) Associated Abdominal Pain: Yes Location: RLQ Radiation: none Severity: moderate Severity scale (1-10): 7 Quality: aching Consistency: constant, intermittent Worsens with: none Context: sick contacts (denies COVID exposure), other (none) Associated Symptoms: nausea/vomiting, weakness - Related Data Home Medications Medication Instructions Recorded Confirmed Insulin Glargine [Lantus] 60 unit SQ HS 04/26/15 02/18/21 Levothyroxine Sodium [Synthroid] 50 mcg PO QAM 08/21/17 02/18/21 Cetirizine HCl [Zyrtec] 10 mg PO DAILY PRN 05/06/20 02/18/21 Liothyronine Sodium [Cytomel] 5 mcg PO DAILY 05/06/20 02/18/21 Sertraline HCl [Zoloft] 50 mg PO DAILY 05/06/20 02/18/21 Calcium Carbonate [Calcium] 600 mg PO DAILY 07/15/20 02/18/21 Docusate [Colace] 100 mg PO BID PRN 07/15/20 02/18/21 Cholecalciferol (Vitamin D3) 125 mcg PO DAILY 02/18/21 02/18/21 [Vitamin D3 (5000 Iu)] INSULIN ASPART (NovoLOG) [NovoLOG See Protocol SQ ACHS 02/18/21 02/18/21 (formulary)] Previous Rx's Medication Instructions Recorded Nitroglycerin Sl Tabs [Nitrostat] 0.4 mg SUBLINGUAL Q5M PRN #25 tab 09/20/18 hydroCHLOROthiazide [Hydrodiuril] 25 mg PO DAILY #30 tab 07/20/20 Aspirin 81 mg PO DAILY #30 chew 08/01/20 Ticagrelor [Brilinta] 90 mg PO BID #60 tab 08/01/20 Furosemide [Lasix] 40 mg PO DAILY #30 tab 02/21/21 carvediloL [Coreg] 6.25 mg PO BID-W/MEALS #60 tab 02/21/21 lisinopriL [Zestril] 10 mg PO DAILY #30 tab 02/21/21 Allergies Allergy/AdvReac Type Severity Reaction Status Date / Time Iodinated Contrast Media Allergy Swelling, Verified 02/18/21 07:33 [Iodinated Contrast Media - SHORTNESS IV Dye] OF BREATH latex Allergy Rash/Hives Verified 02/18/21 07:33 talc Allergy Rash/Hives Verified 02/18/21 07:33 adhesive tape AdvReac blisters Verified 02/18/21 07:33 amlodipine AdvReac ankle Verified 02/18/21 07:33 swelling hydralazine AdvReac Diarrhea Verified 02/18/21 07:33 metal Allergy Rash/Hives Uncoded 02/18/21 07:33 Review of Systems ROS Statement: Those systems with pertinent positive or pertinent negative responses have been documented in the HPI. ROS Other: All systems not noted in ROS Statement are negative. Past Medical History Past Medical History: Coronary Artery Disease (CAD), CVA/TIA, Diabetes Mellitus, Eye Disorder, Hearing Disorder / Deafness, Hypertension, Liver Disease, Myocardial Infarction ([place]), Osteoarthritis (OA), Sleep Apnea/CPAP/BIPAP, Syncope, Thyroid Disorder Additional Past Medical History / Comment(s): IDDM type II, neuropathy knees down bilaterally, ischemic cardiopmyopathy, 2008 small CVA with occasional word finding difficulty, R eye retinal bleed with some vision loss, bilateral diabetic retinopathy, fatty liver, chronic back pain, DDD< mild central canal stenosis, migraines, osteoporosis, UTI, bilateral tinnitis, BROCK no longer tolerates Cpap, benign thyroid nodules, CHI age 14, sycopal episodes as a child, sinus problems Last Myocardial Infarction Date:: 07/2020 History of Any Multi-Drug Resistant Organisms: None Reported Past Surgical History: Breast Surgery, Heart Catheterization With Stent, Hysterectomy, Orthopedic Surgery, Tubal Ligation Additional Past Surgical History / Comment(s): PCI with stents in 06/2020 and 07/2020, several thyroid gland bxs, bilateral benign breast lumpectomies, D&c, bilateral feet 2 hammer toes each, R knee arthroscopy, low back injections, TTT, colonoscopies, bilateral cataract removals. Past Anesthesia/Blood Transfusion Reactions: No Reported Reaction, Motion Sickness Additional Past Anesthesia/Blood Transfusion Reaction / Comment(s): hypotension/ memory problems Date of Last Stent Placement:: 2019 Smoking Status: Never smoker - Past Family History Father Family Medical History: Cancer Additional Family Medical History / Comment(s): Father had lymphoma. He had LUNG, BONE, THROAT AND MOUTH CANCER Brother(s) Family Medical History: Myocardial Infarction ([place]) Additional Family Medical History / Comment(s): Muscle Disease, Rheumatic fever at 2 years old Mother Family Medical History: Cancer Additional Family Medical History / Comment(s): lung cancer- mother. She at the age of 79yrs from esophageal valencia after radiation-unable to eat. Patient states "mother had aneurysm". General Exam General appearance: alert, in no apparent distress, anxious, obese Head exam: Present: atraumatic, normocephalic, normal inspection Eye exam: Present: normal appearance, PERRL, EOMI. Absent: scleral icterus, conjunctival injection, periorbital swelling ENT exam: Present: normal exam, mucous membranes moist Neck exam: Present: normal inspection. Absent: tenderness, meningismus, lymphadenopathy Respiratory exam: Present: normal lung sounds bilaterally. Absent: respiratory distress, wheezes, rales, rhonchi, stridor Cardiovascular Exam: Present: regular rate, normal rhythm, normal heart sounds. Absent: systolic murmur, diastolic murmur, rubs, gallop, clicks GI/Abdominal exam: Present: soft, tenderness (RLQ), normal bowel sounds. Absent: distended, guarding, rebound, rigid Extremities exam: Present: normal inspection, full ROM, normal capillary refill. Absent: tenderness, pedal edema, joint swelling, calf tenderness Back exam: Present: normal inspection Neurological exam: Present: alert, oriented X3, CN II-XII intact Psychiatric exam: Present: normal affect, normal mood Skin exam: Present: warm, dry, intact, normal color. Absent: rash Course Vital Signs 04/07/21 03:31 Temperature 98.1 F Pulse Rate 67 Respiratory 18 Rate Blood Pressure 119/62 O2 Sat by Pulse 98 Oximetry - Reevaluation(s) Reevaluation #1: 04/07/21 04:48 Medical record is reviewed Reevaluation #2: 04/07/21 04:48 Patient has pain control Medical Decision Making - Lab Data Result diagrams: 04/07/21 03:50 04/07/21 03:50 Lab Results 04/07/21 04/07/21 04/07/21 Range/Units 03:50 03:50 03:50 WBC 10.2 (3.8-10.6) k/uL RBC 4.53 (3.80-5.40) m/uL Hgb 11.6 (11.4-16.0) gm/dL Hct 36.0 (34.0-46.0) % MCV 79.5 L (80.0-100.0) fL MCH 25.7 (25.0-35.0) pg MCHC 32.3 (31.0-37.0) g/dL RDW 15.9 H (11.5-15.5) % Plt Count 310 (150-450) k/uL MPV 6.7 Neutrophils % 68 % Lymphocytes % 20 % Monocytes % 6 % Eosinophils % 5 % Basophils % 1 % Neutrophils # 7.0 (1.3-7.7) k/uL Lymphocytes # 2.0 (1.0-4.8) k/uL Monocytes # 0.6 (0-1.0) k/uL Eosinophils # 0.5 (0-0.7) k/uL Basophils # 0.1 (0-0.2) k/uL PT 9.6 (9.0-12.0) sec INR 0.9 (<1.2) APTT 20.0 L (22.0-30.0) sec Sodium 135 L (137-145) mmol/L Potassium 4.7 (3.5-5.1) mmol/L Chloride 104 (98-107) mmol/L Carbon Dioxide 23 (22-30) mmol/L Anion Gap 8 mmol/L BUN 38 H (7-17) mg/dL Creatinine 1.53 H (0.52-1.04) mg/dL Est GFR (CKD-EPI)AfAm 39 (>60 ml/min/1.73 sqM) Est GFR (CKD-EPI)NonAf 34 (>60 ml/min/1.73 sqM) Glucose 241 H (74-99) mg/dL Plasma Lactic Acid Carlos (0.7-2.0) mmol/L Calcium 10.8 H (8.4-10.2) mg/dL Phosphorus 4.8 H (2.5-4.5) mg/dL Magnesium 1.9 (1.6-2.3) mg/dL Total Bilirubin 0.3 (0.2-1.3) mg/dL AST 45 H (14-36) U/L ALT 115 H (4-34) U/L Alkaline Phosphatase 169 H (38-126) U/L Creatine Kinase 42 (30-135) U/L Troponin I (0.000-0.034) ng/mL Total Protein 6.6 (6.3-8.2) g/dL Albumin 3.8 (3.5-5.0) g/dL Acetone, Qual Negative (Negative) 04/07/21 04/07/21 Range/Units 03:50 03:50 WBC (3.8-10.6) k/uL RBC (3.80-5.40) m/uL Hgb (11.4-16.0) gm/dL Hct (34.0-46.0) % MCV (80.0-100.0) fL MCH (25.0-35.0) pg MCHC (31.0-37.0) g/dL RDW (11.5-15.5) % Plt Count (150-450) k/uL MPV Neutrophils % % Lymphocytes % % Monocytes % % Eosinophils % % Basophils % % Neutrophils # (1.3-7.7) k/uL Lymphocytes # (1.0-4.8) k/uL Monocytes # (0-1.0) k/uL Eosinophils # (0-0.7) k/uL Basophils # (0-0.2) k/uL PT (9.0-12.0) sec INR (<1.2) APTT (22.0-30.0) sec Sodium (137-145) mmol/L Potassium (3.5-5.1) mmol/L Chloride (98-107) mmol/L Carbon Dioxide (22-30) mmol/L Anion Gap mmol/L BUN (7-17) mg/dL Creatinine (0.52-1.04) mg/dL Est GFR (CKD-EPI)AfAm (>60 ml/min/1.73 sqM) Est GFR (CKD-EPI)NonAf (>60 ml/min/1.73 sqM) Glucose (74-99) mg/dL Plasma Lactic Acid Carlos 1.4 (0.7-2.0) mmol/L Calcium (8.4-10.2) mg/dL Phosphorus (2.5-4.5) mg/dL Magnesium (1.6-2.3) mg/dL Total Bilirubin (0.2-1.3) mg/dL AST (14-36) U/L ALT (4-34) U/L Alkaline Phosphatase (38-126) U/L Creatine Kinase (30-135) U/L Troponin I <0.012 (0.000-0.034) ng/mL Total Protein (6.3-8.2) g/dL Albumin (3.5-5.0) g/dL Acetone, Qual (Negative) - EKG Data -: EKG Interpreted by Me (EKG is sinus rhythm 64 MT 190 QRS 84 QTc 422) Disposition Clinical Impression: Abdominal pain, Abdominal colic, Nausea & vomiting, Cholecystitis Disposition: ADMITTED IP TO THIS HOSP Condition: Fair Is patient prescribed a controlled substance at d/c from ED?: No Referrals: Boris Galeano MD [Primary Care Provider] - 1-2 days
[2021-04-07 04:01] LABS: Basophils # (A) 0.1 k/uL (0-0.2); Basophils % (A) 1 %; Eosinophils # (A) 0.5 k/uL (0-0.7); Eosinophils % (A) 5 %; HGB 11.6 gm/dL (11.4-16.0); Lymphocytes % (A) 20 %; MCH 25.7 pg (25.0-35.0); MCHC 32.3 g/dL (31.0-37.0); MCV 79.5 fL (80.0-100.0); Mean Platelet Volume 6.7; Monocytes # (A) 0.6 k/uL (0-1.0); Monocytes % (A) 6 %; Neutrophils % (A) 68 %; Platelet Count 310 k/uL (150-450); RBC 4.53 m/uL (3.80-5.40); RDW 15.9 % (11.5-15.5); WBC 10.2 k/uL (3.8-10.6)
[2021-04-07 04:19] LABS: INR 0.9 (<1.2); Prothrombin Time 9.6 sec (9.0-12.0)
[2021-04-07 04:23] LABS: ALT 115 U/L (4-34); AST 45 U/L (14-36); African American GFR (CKD) 39 (>60 ml/min/1.73 sqM); Albumin 3.8 g/dL (3.5-5.0); Alkaline Phosphatase 169 U/L (38-126); Anion Gap 8 mmol/L; Blood Urea Nitrogen 38 mg/dL (7-17); Calcium 10.8 mg/dL (8.4-10.2); Carbon Dioxide 23 mmol/L (22-30); Chloride 104 mmol/L (98-107); Creatine Kinase 42 U/L (30-135); Glucose 241 mg/dL (74-99); Magnesium 1.9 mg/dL (1.6-2.3); Non-African American GFR(CKD) 34 (>60 ml/min/1.73 sqM); Phosphorus 4.8 mg/dL (2.5-4.5); Potassium 4.7 mmol/L (3.5-5.1); Sodium 135 mmol/L (137-145); Total Bilirubin 0.3 mg/dL (0.2-1.3); Total Protein 6.6 g/dL (6.3-8.2)
[2021-04-07 04:47] LABS: Appearance,Urine Cloudy (Clear); Bacteria,Urine Rare /hpf; Bilirubin,Urine Negative (Negative); Blood,Urine Negative (Negative); Color,Urine Yellow; Glucose,Urine (UA) 4+ (Negative); Hyaline Casts,Urine 7 /lpf (0-2); Ketones,Urine Negative (Negative); Leukocyte Esterase,Urine Large (Negative); Mucus,Urine Rare /hpf; Nitrite,Urine Negative (Negative); Protein,Urine Negative (Negative); RBC,Urine 6 /hpf (0-5); Specific Gravity,Urine 1.013 (1.001-1.035); Squamous Epithelial Cell,Urine 1 /hpf (0-4); Urobilinogen,Urine <2.0 mg/dL (<2.0); WBC,Urine >182 /hpf (0-5)
[2021-04-07] MEDS ORDERED: NALOXONE 0.4 MG/ML 1 ML VIAL IV PRN (04:59)
[2021-04-07] MEDS ORDERED: ONDANSETRON 4 MG/2 ML VIAL IVP PRN (05:01)
[2021-04-07] MEDS ORDERED: MORPHINE SULFATE 4 MG/ML SYRINGE IV PRN (05:01)
[2021-04-07] MEDS: SODIUM CHLORIDE 0.9% 1,000 ML IV SCH ×2 (05:11→16:25)
--- NOTE | 2021-04-07 05:15 | CT ---
EXAM: CT Abdomen and Pelvis Without Intravenous Contrast CLINICAL HISTORY: ITS.REASON CT Reason: p TECHNIQUE: Axial computed tomography images of the abdomen and pelvis without intravenous contrast. CTDI is 33.584 mGy and DLP is 1894.8 mGy-cm. This CT exam was performed using one or more of the following dose reduction techniques: automated exposure control, adjustment of the mA and/or kV according to patient size, and/or use of iterative reconstruction technique. COMPARISON: CT dated 05/19/2020 FINDINGS: Lung bases: Bibasilar atelectasis and or scarring. ABDOMEN: Liver: Calcific granulomata within the liver. Gallbladder and bile ducts: Gallbladder surgically absent. Pancreas: Pancreas is atrophic. Spleen: Calcific granuloma within the spleen. Adrenals: Thickening of both adrenal glands. Kidneys and ureters: Unremarkable. Stomach and bowel: Unremarkable. PELVIS: Appendix: Appendix is unremarkable. Bladder: Unremarkable. Reproductive: Unremarkable as visualized. ABDOMEN and PELVIS: Intraperitoneal space: Unremarkable. Bones/joints: No acute fracture. No dislocation. Soft tissues: Mild soft tissue thickening noted anterior pelvic wall which may represent cellulitis. Vasculature: Unremarkable. Lymph nodes: Unremarkable. IMPRESSION: Mild soft tissue thickening noted anterior pelvic wall which may represent cellulitis. Correlate clinically.
--- NOTE | 2021-04-07 13:09 | US ---
EXAMINATION TYPE: US liver DATE OF EXAM: 04/07/2021 COMPARISON: NONE CLINICAL HISTORY: abd pain? cholecystitis?. EXAM MEASUREMENTS: Liver Length: 15.5 cm Gallbladder Wall: Surgically absent CBD: 0.9 cm Right Kidney: 11.8 x 4.9 x 4.4 cm Morbidly obese patient with extensive overlying bowel gas. Technically difficult study. Pancreas: Obscured by bowel gas Liver: wnl as seen, limited views Gallbladder: Surgically absent CBD: wnl Right Kidney: No hydronephrosis or masses seen IMPRESSION: 1. Postcholecystectomy changes.
--- NOTE | 2021-04-07 14:50 | P.GSCN ---
History of Present Illness Consult date: 04/07/21 History of present illness: CHIEF COMPLAINT: Abdominal pain HISTORY OF PRESENT ILLNESS: This is a 71-year-old female with a known history of myocardial infarction, coronary artery disease with cardiac stents, diabetes mellitus, fatty liver, obstructive sleep apnea, hypothyroidism and ischemic cardiomyopathy. Past surgical history includes cholecystectomy and hystere ctomy. Patient states that she was having some right lower quadrant abdominal pain that started yesterday and was having confusion. She had 2 episodes of vomiting and some nausea. The symptoms have resolved since coming into the ER. She denies any change in bowel movements. She was found have evidence of a UTI and started on antibiotics. She denies any urinary symptoms. She had a computed tomography scan of the abdomen and pelvis that shows mild soft tissue thickening noted in the anterior pelvic wall which may represent cellulitis. Appendix was reported as normal. She denies any fever, chills or sweats. She reports that her confusion as already showing improvement since being started on the antibiotics. Patient is answering questions appropriately. She says she's had confusion issues in the past when she's had urinary tract infection. PAST MEDICAL HISTORY: See list. PAST SURGICAL HISTORY: See list. MEDICATIONS: See list. ALLERGIES: See list. SOCIAL HISTORY: No illicit drug use. REVIEW OF SYSTEMS: CONSTITUTIONAL: Denies fever or chills. HEENT: Denies blurred vision, vision changes, or eye pain. Denies hemoptysis CARDIOVASCULAR: Denies chest pain or pressure. RESPIRATORY: No shortness of breath. GASTROINTESTINAL: See HPI for pertinent findings HEMATOLOGIC: Denies bleeding disorders. GENITOURINARY: Denies any blood in urine or increased urinary frequency. SKIN: Denies pruitis. Denies rash. PHYSICAL EXAM: VITAL SIGNS: Reviewed GENERAL: Well-developed in no acute distress. HEENT: No sclera icterus. Extraocular movements grossly intact. Moist buccal mucosa. Head is atraumatic, normocephalic. No nasal drainage. ABDOMEN: Soft. Obese. Nondistended. No tenderness with palpation. Patient has a large pannus with evidence of yeast in the skin fold on the left side of the abdomen NEUROLOGIC: Alert and oriented. Cranial nerves II through XII grossly intact. LABORATORY DATA: WBC 10.2 hemoglobin 11.6 platelets 310 INR 0.9 sodium 135 creatinine 1.53 Glucose 241 AST 45 ALT 115 alk phos 169 Urinalysis positive for UTI Covid not detected IMAGING: computed tomography scan of the abdomen and pelvis that shows mild soft tissue thickening noted in the anterior pelvic wall which may represent cellulitis. Appendix was reported as normal. Liver ultrasound shows post cholecystectomy changes ASSESSMENT: 1. Right lower abdominal pain with nausea and vomiting now resolved 2. UTI 3. Candidiasis of abdominal skin fold noted on the left. Possible cellulitis of the anterior pelvic wall noted on CAT scan. 4. History of cholecystectomy 5. Mildly elevated LFTs with known history of fatty liver PLAN: -Continue antibiotics -Add nystatin cream and apply to yeast infection of the abdominal skin fold -No surgical intervention planned. Continue with supportive care Physician Crester note has been reviewed by physician. Signing provider agrees with the documented findings, assessment, and plan of care. Past Medical History Past Medical History: Coronary Artery Disease (CAD), Heart Failure, CVA/TIA, Diabetes Mellitus, Eye Disorder, Hearing Disorder / Deafness, Hyperlipidemia, Hypertension, Liver Disease, Myocardial Infarction ([place]), Osteoarthritis (OA), Renal Disease, Sleep Apnea/CPAP/BIPAP, Syncope, Thyroid Disorder Additional Past Medical History / Comment(s): IDDM type II, neuropathy knees down bilaterally, ischemic cardiopmyopathy, 2009 small CVA with occasional word finding difficulty, R eye retinal bleed with some vision loss, bilateral diabetic retinopathy, fatty liver, chronic back pain, DDD< mild central canal stenosis, migraines, osteoporosis, CKD, UTI, bilateral tinnitis, BROCK no longer tolerates Cpap, benign thyroid nodules, CHI age 14, sycopal episodes as a child, sinus problems Last Myocardial Infarction Date:: 07/2020 History of Any Multi-Drug Resistant Organisms: None Reported Past Surgical History: Breast Surgery, Heart Catheterization With Stent, Hysterectomy, Orthopedic Surgery, Tubal Ligation Additional Past Surgical History / Comment(s): PCI with stents in 06/2020 and 07/2020, several thyroid gland bxs, bilateral benign breast lumpectomies, D&c, bilateral feet 2 hammer toes each, R knee arthroscopy, low back injections, TTT, colonoscopies, bilateral cataract removals. Past Anesthesia/Blood Transfusion Reactions: No Reported Reaction, Motion Sickness Additional Past Anesthesia/Blood Transfusion Reaction / Comm: hypotension/memory problems Date of Last Stent Placement:: 2019 Smoking Status: Never smoker - Past Family History Father Family Medical History: Cancer Additional Family Medical History / Comment(s): Father had lymphoma. He had L ANAND, BONE, THROAT AND MOUTH CANCER Brother(s) Family Medical History: Myocardial Infarction ([place]) Additional Family Medical History / Comment(s): Muscle Disease, Rheumatic fever at 2 years old Mother Family Medical History: Cancer Additional Family Medical History / Comment(s): lung cancer- mother. She at the age of 79yrs from esophageal valencia after radiation-unable to eat. Patient states "mother had aneurysm". Medications and Allergies Home Medications Medication Instructions Recorded Confirmed Type Insulin Glargine [Lantus] 60 unit SQ HS 04/26/15 04/07/21 History Levothyroxine Sodium [Synthroid] 50 mcg PO QAM 08/21/17 04/07/21 History Nitroglycerin Sl Tabs [Nitrostat] 0.4 mg SUBLINGUAL Q5M PRN #25 tab 09/20/18 04/07/21 Rx Cetirizine HCl [Zyrtec] 10 mg PO DAILY PRN 05/06/20 04/07/21 History Liothyronine Sodium [Cytomel] 5 mcg PO DAILY 05/06/20 04/07/21 History Sertraline HCl [Zoloft] 50 mg PO DAILY 05/06/20 04/07/21 History Calcium Carbonate [Calcium] 600 mg PO DAILY 07/15/20 04/07/21 History Docusate [Colace] 100 mg PO BID PRN 07/15/20 04/07/21 History Aspirin 81 mg PO DAILY #30 chew 08/01/20 04/07/21 Rx Ticagrelor [Brilinta] 90 mg PO BID #60 tab 08/01/20 04/07/21 Rx Cholecalciferol (Vitamin D3) 125 mcg PO DAILY 02/18/21 04/07/21 History [Vitamin D3 (5000 Iu)] INSULIN ASPART (NovoLOG) [NovoLOG See Protocol SQ AC-TID 02/18/21 04/07/21 History (formulary)] Furosemide [Lasix] 40 mg PO DAILY #30 tab 02/21/21 04/07/21 Rx carvediloL [Coreg] 6.25 mg PO BID-W/MEALS #60 tab 02/21/21 04/07/21 Rx lisinopriL [Zestril] 10 mg PO DAILY #30 tab 02/21/21 04/07/21 Rx Gabapentin 300 mg PO BID 04/07/21 04/07/21 History Glimepiride [Amaryl] 4 mg PO AC-BRKFST 04/07/21 04/07/21 History INSULIN ASPART (NovoLOG) [NovoLOG 6 units SQ AC-TID 04/07/21 04/07/21 History (formulary)] Allergies Allergy/AdvReac Type Severity Reaction Status Date / Time Iodinated Contrast Media Allergy Swelling, Verified 02/18/21 07:33 [Iodinated Contrast Media - SHORTNESS IV Dye] OF BREATH latex Allergy Rash/Hives Verified 02/18/21 07:33 talc Allergy Rash/Hives Verified 02/18/21 07:33 adhesive tape AdvReac blisters Verified 02/18/21 07:33 amlodipine AdvReac ankle Verified 02/18/21 07:33 swelling hydralazine AdvReac Diarrhea Verified 02/18/21 07:33 metal Allergy Rash/Hives Uncoded 02/18/21 07:33 Surgical - Exam Vital Signs Temp Pulse Resp BP Pulse Ox 98.1 F 67 18 119/62 98 04/07/21 03:31 04/07/21 03:31 04/07/21 03:31 04/07/21 03:31 04/07/21 03:31 Results - Labs 04/07/21 03:50 04/07/21 03:50 Abnormal Lab Results - Last 24 Hours (Table) 04/07/21 04/07/21 04/07/21 Range/Units 03:50 03:50 03:50 MCV 79.5 L (80.0-100.0) fL RDW 15.9 H (11.5-15.5) % APTT 20.0 L (22.0-30.0) sec Sodium (137-145) mmol/L BUN (7-17) mg/dL Creatinine (0.52-1.04) mg/dL Glucose (74-99) mg/dL Calcium (8.4-10.2) mg/dL Phosphorus (2.5-4.5) mg/dL AST (14-36) U/L ALT (4-34) U/L Alkaline Phosphatase (38-126) U/L Urine Appearance Cloudy H (Clear) Urine Glucose (UA) 4+ H (Negative) Ur Leukocyte Esterase Large H (Negative) Urine RBC 6 H (0-5) /hpf Urine WBC >182 H (0-5) /hpf Urine WBC Clumps Moderate H (None) /hpf Urine Bacteria Rare H (None) /hpf Hyaline Casts 7 H (0-2) /lpf Urine Mucus Rare H (None) /hpf 04/07/21 Range/Units 03:50 MCV (80.0-100.0) fL RDW (11.5-15.5) % APTT (22.0-30.0) sec Sodium 135 L (137-145) mmol/L BUN 38 H (7-17) mg/dL Creatinine 1.53 H (0.52-1.04) mg/dL Glucose 241 H (74-99) mg/dL Calcium 10.8 H (8.4-10.2) mg/dL Phosphorus 4.8 H (2.5-4.5) mg/dL AST 45 H (14-36) U/L ALT 115 H (4-34) U/L Alkaline Phosphatase 169 H (38-126) U/L Urine Appearance (Clear) Urine Glucose (UA) (Negative) Ur Leukocyte Esterase (Negative) Urine RBC (0-5) /hpf Urine WBC (0-5) /hpf Urine WBC Clumps (None) /hpf Urine Bacteria (None) /hpf Hyaline Casts (0-2) /lpf Urine Mucus (None) /hpf Microbiology - Last 24 Hours (Table) 04/07/21 03:50 Urine Culture - Preliminary Urine,Voided Diabetes panel 04/07/21 Range/Units 03:50 Sodium 135 L (137-145) mmol/L Potassium 4.7 (3.5-5.1) mmol/L Chloride 104 (98-107) mmol/L Carbon Dioxide 23 (22-30) mmol/L BUN 38 H (7-17) mg/dL Creatinine 1.53 H (0.52-1.04) mg/dL Glucose 241 H (74-99) mg/dL Calcium 10.8 H (8.4-10.2) mg/dL AST 45 H (14-36) U/L ALT 115 H (4-34) U/L Alkaline Phosphatase 169 H (38-126) U/L Total Protein 6.6 (6.3-8.2) g/dL Albumin 3.8 (3.5-5.0) g/dL Calcium panel 04/07/21 Range/Units 03:50 Calcium 10.8 H (8.4-10.2) mg/dL Phosphorus 4.8 H (2.5-4.5) mg/dL Albumin 3.8 (3.5-5.0) g/dL Pituitary panel 04/07/21 Range/Units 03:50 Sodium 135 L (137-145) mmol/L Potassium 4.7 (3.5-5.1) mmol/L Chloride 104 (98-107) mmol/L Carbon Dioxide 23 (22-30) mmol/L BUN 38 H (7-17) mg/dL Creatinine 1.53 H (0.52-1.04) mg/dL Glucose 241 H (74-99) mg/dL Calcium 10.8 H (8.4-10.2) mg/dL Adrenal panel 04/07/21 Range/Units 03:50 Sodium 135 L (137-145) mmol/L Potassium 4.7 (3.5-5.1) mmol/L Chloride 104 (98-107) mmol/L Carbon Dioxide 23 (22-30) mmol/L BUN 38 H (7-17) mg/dL Creatinine 1.53 H (0.52-1.04) mg/dL Glucose 241 H (74-99) mg/dL Calcium 10.8 H (8.4-10.2) mg/dL Total Bilirubin 0.3 (0.2-1.3) mg/dL AST 45 H (14-36) U/L ALT 115 H (4-34) U/L Alkaline Phosphatase 169 H (38-126) U/L Total Protein 6.6 (6.3-8.2) g/dL Albumin 3.8 (3.5-5.0) g/dL
[2021-04-07] MEDS: NYSTATIN 100,000 UNIT/GM OINT 30 GM TUBE TOPICAL SCH (16:24)
[2021-04-07] MEDS ORDERED: NITROGLYCERIN SL TABS 0.4 MG TAB SUBLINGUAL PRN (17:45)
[2021-04-07] MEDS ORDERED: LORATADINE 10 MG TAB PO PRN (17:45)
[2021-04-07] MEDS ORDERED: ALPRAZolam 0.25 MG TAB PO PRN (17:49)
[2021-04-07] MEDS ORDERED: TEMAZEPAM 15 MG CAP PO PRN (17:49)
[2021-04-07] MEDS: LEVOTHYROXINE 50 MCG TAB PO SCH (18:20)
[2021-04-07] MEDS: PANTOPRAZOLE 40 MG/10 ML VIAL IVP SCH (18:20)
[2021-04-07] MEDS: SERTRALINE 50 MG TAB PO SCH (18:20)
[2021-04-07] MEDS: LIOTHYRONINE SODIUM 5 MCG TAB PO SCH (18:20)
--- NOTE | 2021-04-07 18:47 | XR ---
EXAMINATION: XR chest 1V portable DATE AND TIME: 04/07/2021 6:15 PM CLINICAL INDICATION: PHH; chf TECHNIQUE: AP upright portable COMPARISON: 02/17/2021 FINDINGS: The lungs are clear. The pleural spaces are negative. The right hemidiaphragm is elevated, relative to the left, and this was seen on the prior study. This finding limits visualization/assessment of the right lower lobe. The cardiac silhouette appears mildly moderately enlarged on this AP radiograph, unchanged from the p rior. The remainder of the mediastinal silhouette is unremarkable. The skeletal structures and soft tissues are negative for acute findings. IMPRESSION: No acute radiographic process.
[2021-04-07 20:02] LABS: Glucose,Whole Blood 352 mg/dL (75-99)
[2021-04-07] MEDS: GABAPENTIN 300 MG CAP PO SCH (20:26)
[2021-04-07] MEDS: INSULIN ASPART (NovoLOG) 100 UNIT/ML VIAL SQ SCH (20:26)
[2021-04-07] MEDS: TICAGRELOR 90 MG TAB PO SCH (20:27)
[2021-04-07] MEDS ORDERED: INSULIN DETEMIR (LEVEMIR) 100 UNIT/ML SYR SQ SCH (21:00)
--- NOTE | 2021-04-07 22:33 | HP ---
HISTORY AND PHYSICAL I am covering for Dr. Galeano. DATE OF SERVICE: 04/07/2021 CHIEF COMPLAINTS: Nausea and vomiting as well as right lower quadrant abdominal pain. HISTORY OF PRESENT ILLNESS: This 71-year-old woman with a past medical history of multiple medical problems, including CAD, CHF, CVA, TIA, diabetes mellitus, hypertension, hyperlipidemia, liver disease, myocardial infarction, fatty liver, being followed by Dr. Galeano in the outpatient setting, is complaining of right lower quadrant abdominal pain, nausea and some vomiting. The patient came to [facility] and was admitted for further evaluation and treatment. The patient was found to have evidence of UTI. Patient was started on broad-spectrum IV antibiotics. Some candidiasis of the abdominal fold was noted. The patient also had a CT scan of the abdomen and pelvis and a liver ultrasound which showed mild tissue thickening of the anterior pelvic wall which might indicate cellulitis per the CT scan report, and also the liver ultrasound showed some post- cholecystectomy changes. There is no history of any fever, rigors or chills at this time. PAST MEDICAL HISTORY: History of CAD, history of CVA, TIA, diabetes mellitus, type 2, history of hypertension, hyperlipidemia. HOME MEDICATIONS: Zestril, Coreg, Brilinta, Zoloft, Nitrostat, Cytomel, Synthroid, Lantus, NovoLog scale, Amaryl, gabapentin, Lasix, Colace, vitamin D3, Zyrtec, calcium and aspirin. ALLERGIES: IODINATED CONTRAST DYES, LATEX, TALC, ADHESIVE TAPES, AMLODIPINE, HYDRALAZINE, METAL. FAMILY HISTORY: History of lung cancer in the family. SOCIAL HISTORY: No history of smoking. No history of alcohol intake. REVIEW OF SYSTEMS: ENT: No diminished hearing. No diminished vision. CARDIOVASCULAR SYSTEM: No angina, palpitations. RESPIRATORY SYSTEM: As mentioned earlier. GI: As mentioned earlier. : No dysuria or retention. NERVOUS SYSTEM: No numbness, weakness. ALLERGY/IMMUNOLOGY: No asthma, hayfever. MUSCULOSKELETAL: As mentioned earlier. HEMATOLOGY/ONCOLOGY: No history of anemia. ENDOCRINE: No history of diabetes, hypothyroidism. CONSTITUTIONAL: As mentioned earlier. DERMATOLOGY: Negative. RHEUMATOLOGY: Negative. PSYCHIATRY: As mentioned earlier. PHYSICAL EXAMINATION: Patient is alert and oriented x3. Pulse is 78, blood pressure is 172/73, respirations 16, temperature 97.5, pulse ox is 97% on room air. HEENT: Conjunctivae normal. Oral mucosa moist. NECK: No jugular venous distention. No carotid bruit. No lymph node enlargement. CARDIOVASCULAR SYSTEM: S1, S2 muffled. RESPIRATORY SYSTEM: Breath sounds diminished at the bases. ABDOMEN: Soft. Mild diffuse discomfort in the right lower quadrant. Otherwise no mass palpable. LEGS: No edema. No swelling. NERVOUS SYSTEM: Higher functions as mentioned earlier. Moves all 4 limbs. No focal motor or sensory deficit. LYMPHATICS: No lymph node palpable in neck, axillae or groin. SKIN: Some skin fold candidiasis present. JOINTS: No active deforming arthropathy. LABS: MCV 79.5. Sodium is 135, creatinine 1.55. Glucose is 352. AST, ALT slightly elevated at 45 and 115. Calcium is 10.8. UA shows possible UTI. ASSESSMENT: 1. Acute urinary tract infection with abdominal pain. 2. Mild soft tissue thickening noted in the anterior pelvic wall which may represent cellulitis. 3. Hyponatremia. 4. Increased creatinine with acute renal failure with acute tubular necrosis, possibly secondary to dehydration. 5. Diabetes mellitus, type 2, uncontrolled with hyperglycemia. 6. Elevated AST, ALT. 7. History of fatty liver. 8. History of coronary artery disease. 9. History of congestive heart failure. 10.History of cerebrovascular accident, transient ischemic attack. 11.Diabetes mellitus, type 2. 12.History of hypertension. 13.Hyperlipidemia. 14.History of myocardial infarction. 15.History of degenerative joint disease. 16.History of renal disease. 17.History of sleep apnea. 18.History of hypothyroidism. 19.History of peripheral neuropathy secondary to diabetes mellitus, type 2. 20.History of diabetic retinopathy. 21.History of breast surgery. 22.History of coronary artery disease, stent. 23.History of anxiety, bipolar, depression. 24.Obesity with body mass index of 46.8. 25.FULL CODE. RECOMMENDATIONS AND DISCUSSION: In this 71-year-old woman who presented with multiple complex medical issues, we will monitor the patient closely, continue the current medications, continue symptomatic treatment. I recommend broad-spectrum IV antibiotics and I would also recommend cultures and repeat labs in the morning. Otherwise, guarded prognosis because of multiple complex medical issues. Further recommendations to follow. A copy of this dictation is being forwarded to Dr. Boris Galeano, who is the primary physician. MMODL / IJN: [id number] /
[2021-04-08 02:50] LABS: Glucose,Whole Blood 114 mg/dL (75-99)
[2021-04-08 02:54] VITALS: TEMP 97.6
[2021-04-08] MEDS: NYSTATIN 100,000 UNIT/GM OINT 30 GM TUBE TOPICAL SCH ×2 (03:26→08:29)
[2021-04-08] MEDS: SODIUM CHLORIDE 0.9% 1,000 ML IV SCH ×2 (03:27→11:45)
[2021-04-08] MEDS: LEVOTHYROXINE 50 MCG TAB PO SCH (05:54)
[2021-04-08 07:02] LABS: INR 0.9 (<1.2); Prothrombin Time 9.9 sec (9.0-12.0)
[2021-04-08 07:18] LABS: Glucose,Whole Blood 47 mg/dL (75-99)
[2021-04-08] MEDS ORDERED: carvediloL 6.25 MG TAB PO SCH (07:30)
[2021-04-08] MEDS ORDERED: GLIMEPIRIDE 4 MG TAB PO SCH (07:30)
[2021-04-08] MEDS: INSULIN ASPART (NovoLOG) 100 UNIT/ML VIAL SQ SCH ×4 (07:31→12:42)
[2021-04-08 07:35] LABS: Glucose,Whole Blood 62 mg/dL (75-99)
[2021-04-08 07:57] LABS: Glucose,Whole Blood 123 mg/dL (75-99)
[2021-04-08] MEDS: LIOTHYRONINE SODIUM 5 MCG TAB PO SCH (08:27)
[2021-04-08] MEDS: SERTRALINE 50 MG TAB PO SCH (08:27)
[2021-04-08] MEDS: TICAGRELOR 90 MG TAB PO SCH (08:27)
[2021-04-08] MEDS: PANTOPRAZOLE 40 MG/10 ML VIAL IVP SCH (08:27)
[2021-04-08] MEDS: GABAPENTIN 300 MG CAP PO SCH (08:27)
[2021-04-08] MEDS ORDERED: CALCIUM CARBONATE 500 MG CHEWABLE PO SCH (09:00)
[2021-04-08] MEDS ORDERED: CHOLECALCIFEROL 25 MCG (1000 IU) TABLET PO SCH (09:00)
[2021-04-08] MEDS ORDERED: ASPIRIN 81 MG PO SCH (09:00)
[2021-04-08 09:08] LABS: Basophils # (A) 0.03 X 10*3/uL (0.00-0.10); Basophils % (A) 0.4 %; Eosinophils # (A) 0.41 X 10*3/uL (0.04-0.35); HCT 36.2 % (37.2-46.3); Lymphocytes % (A) 27.9 %; MCH 25.2 pg (27.0-32.0); MCHC 30.4 g/dL (32.0-37.0); Mean Platelet Volume 9.3 fL (9.5-12.2); Monocytes # (A) 0.57 X 10*3/uL (0.20-1.00); Monocytes % (A) 6.9 %; Neutrophils % (A) 59.4 %; Platelet Count 277 X 10*3/uL (140-440); RBC 4.36 X 10*6/uL (4.10-5.20); RDW 15.5 % (11.5-14.5); WBC 8.24 X 10*3/uL (4.50-10.00)
[2021-04-08 10:43] LABS: African American GFR (CKD) 57.7 (60.0-200.0); Albumin 3.5 g/dL (3.80-4.90); Albumin/Globulin Ratio 1.67 (1.60-3.17); Anion Gap 6.4 mmol/L (4.00-12.00); BUN/Creat Ratio 28.18 Ratio (12.00-20.00); Calcium 9.4 mg/dL (8.7-10.3); Carbon Dioxide 27.6 mmol/L (21.6-31.8); Globulin 2.1 g/dL (1.6-3.3); Magnesium 1.9 mg/dL (1.5-2.4); Non-African American GFR(CKD) 49.8 (60.0-200.0); Phosphorus 3.4 mg/dL (2.4-5.1); Potassium 4.3 mmol/L (3.5-5.5); Total Bilirubin 0.3 mg/dL (0.2-1.2); Total Protein 5.6 g/dL (6.2-8.2)
[2021-04-08 11:27] LABS: Glucose,Whole Blood 173 mg/dL (75-99)
[2021-04-08 11:57] VITALS: BMI 46.7
--- NOTE | 2021-04-08 13:09 | P.PN ---
Subjective Progress Note Date: 04/08/21 CHIEF COMPLAINT: Abdominal pain HISTORY OF PRESENT ILLNESS: Surgical service is following in regards to umberto ceja's abdominal pain with nausea and vomiting. Her pain has resolved. She is receiving treatment for UTI. Patient's abdominal pain and nausea and vomiting have resolved. She is afebrile. PHYSICAL EXAM: VITAL SIGNS: Reviewed. GENERAL: Well-developed in no acute distress. HEENT: No sclera icterus. Extraocular movements grossly intact. Moist buccal mucosa. Head is atraumatic, normocephalic. ABDOMEN: Soft. Obese. Nondistended. Nontender. Yeast infection on the skin fold of the abdomen on the left NEUROLOGIC: Alert and oriented. Cranial nerves II through XII grossly intact. ASSESSMENT: 1. Right lower abdominal pain with nausea and vomiting now resolved. Symptoms may have been related to patient's UTI. She had improvement after antibiotics. 2. UTI 3. Candidiasis of abdominal skin fold noted on the left. Possible cellulitis of the anterior pelvic wall noted on CAT scan. 4. History of cholecystectomy 5. Mildly elevated LFTs with known history of fatty liver PLAN: -No surgical intervention planned -Patient is stable from surgical standpoint for discharge -Continue nystatin cream for candidiasis of the abdominal skin fold -Continue antibiotics for UTI per Medicine service Physician Electrical Mechanic note has been reviewed by physician. Signing provider agrees with the documented findings, assessment, and plan of care. Objective - Vital Signs Vital signs: Vital Signs Temp 97.6 F 04/08/21 02:50 Pulse 58 L 04/08/21 07:00 Resp 18 04/08/21 07:00 BP 145/77 04/08/21 07:00 Pulse Ox 99 04/08/21 07:00 Intake & Output 04/07/21 04/08/21 04/08/21 18:59 06:59 18:59 Intake Total 100 1100 Balance 100 1100 Weight 131.542 kg 131.542 kg Intake: IV 100 1000 Sodium Chloride 0.9% 1, 100 1000 000 ml @ 100 mls/hr IV . Q10H VINCE Rx#:[id number] Intake, IV Titration 100 Amount cefTRIAXone 1 gm In 100 Sodium Chloride 0.9% 50 ml @ 100 mls/hr IVPB Q12H VINCE Rx#:[id number] Other: Voiding Method Toilet # Voids 1 - Labs CBC & Chem 7: 04/08/21 05:46 05/14/21 05:46 Labs: Abnormal Lab Results - Last 24 Hours (Table) 04/07/21 04/08/21 04/08/21 Range/Units 20:00 02:49 05:46 Hgb (12.0-15.0) g/dL Hct (37.2-46.3) % MCH (27.0-32.0) pg MCHC (32.0-37.0) g/dL RDW (11.5-14.5) % MPV (9.5-12.2) fL Eosinophils # (0.04-0.35) X 10*3/uL BUN 31.0 H (9.0-27.0) mg/dL Est GFR (CKD-EPI)AfAm 57.7 L (60.0-200.0) Est GFR (CKD-EPI)NonAf 49.8 L (60.0-200.0) BUN/Creatinine Ratio 28.18 H (12.00-20.00) Ratio Glucose 51 L (70-110) mg/dL POC Glucose (mg/dL) 352 H 114 H (75-99) mg/dL ALT 79 H (8-44) U/L Alkaline Phosphatase 140 H (41-126) U/L Total Protein 5.6 L (6.2-8.2) g/dL Albumin 3.50 L (3.80-4.90) g/dL 04/08/21 04/08/21 04/08/21 Range/Units 05:46 07:17 07:34 Hgb 11.0 L (12.0-15.0) g/dL Hct 36.2 L (37.2-46.3) % MCH 25.2 L (27.0-32.0) pg MCHC 30.4 L (32.0-37.0) g/dL RDW 15.5 H (11.5-14.5) % MPV 9.3 L (9.5-12.2) fL Eosinophils # 0.41 H (0.04-0.35) X 10*3/uL BUN (9.0-27.0) mg/dL Est GFR (CKD-EPI)AfAm (60.0-200.0) Est GFR (CKD-EPI)NonAf (60.0-200.0) BUN/Creatinine Ratio (12.00-20.00) Ratio Glucose (70-110) mg/dL POC Glucose (mg/dL) 47 L 62 L (75-99) mg/dL ALT (8-44) U/L Alkaline Phosphatase (41-126) U/L Total Protein (6.2-8.2) g/dL Albumin (3.80-4.90) g/dL 04/08/21 04/08/21 Range/Units 07:56 11:25 Hgb (12.0-15.0) g/dL Hct (37.2-46.3) % MCH (27.0-32.0) pg MCHC (32.0-37.0) g/dL RDW (11.5-14.5) % MPV (9.5-12.2) fL Eosinophils # (0.04-0.35) X 10*3/uL BUN (9.0-27.0) mg/dL Est GFR (CKD-EPI)AfAm (60.0-200.0) Est GFR (CKD-EPI)NonAf (60.0-200.0) BUN/Creatinine Ratio (12.00-20.00) Ratio Glucose (70-110) mg/dL POC Glucose (mg/dL) 123 H 173 H (75-99) mg/dL ALT (8-44) U/L Alkaline Phosphatase (41-126) U/L Total Protein (6.2-8.2) g/dL Albumin (3.80-4.90) g/dL Microbiology - Last 24 Hours (Table) 04/07/21 03:50 Urine Culture - Preliminary Urine,Voided
[2021-04-08 13:37] VITALS: BP 150/62; PULSE 64; RESP 16
--- NOTE | 2021-04-08 16:42 | P.DS ---
Providers Date of admission: 04/07/21 05:02 Expected date of discharge: 04/08/21 Attending physician: Monty Samson Consults: 04/07/21 10:49 Consult Physician Routine Consulting Provider: Ron Read Consult Reason/Comments: abd pain Do you want consulting provider notified?: Yes Primary care physician: Boris Galeano MD Hospital Course: Final diagnosis Acute urinary tract infection with abdominal pain Mild soft tissue thickening noted in the anterior pelvic wall which may represent cellulitis Hyponatremia Increased creatinine with acute renal failure with acute tubular necrosis, possibly secondary to dehydration Diabetes mellitus type 2 uncontrolled with hyperglycemia Elevated AST, ALT History of fatty liver history of coronary artery disease history of congestive heart failure History of CVA, TIA diabetes mellitus type 2 History of hypertension Hyperlipidemia History of myocardial infarction history of degenerative joint disease History of renal disease History of sleep apnea History of hypothyroidism history of peripheral neuropathy secondary to diabetes mellitus type 2 History of diabetic retinopathy History of breast surgery History of coronary artery disease, stent history of anxiety, bipolar, depression Obesity with a body mass index of 46.8 Full code Discharge disposition Patient is being discharged in a stable condition with guarded prognosis to home. Patient will follow-up with Dr. Boris Galeano in the outpatient setting upon discharge. Patient will continue on oral Ceftin 500 mg twice daily for the next 3 days to complete the course. Patient will also continue with nystatin topical to the abdominal fold 3 times daily. Total time taken is greater than 35 minutes. Hospital course Is a 71-year-old female who was recently admitted with right lower quadrant abdominal pain, nausea and vomiting and was being closely monitored. Patient was also found to have evidence of urinary tract infection and started on broad- spectrum IV antibiotic and showed improvement. Urine cultures showing normal page and will continue with oral Ceftin 500 mg twice daily for the next 3 days to complete the course. She also having some candidiasis of the abdominal fold and will continue with nystatin cream 3 times daily and instructed the patient to follow-up with primary care provider this week. Patient was also seen and evaluated by surgery for some acute findings on the CT of the abdomen and pelvis and will follow-up with surgery outpatient recommending no surgical intervention at this time. Prescription provided for repeat labs to monitor kidney functions closely in the outpatient setting. Instructed the patient to continue to monitor blood sugars before meals and at bedtime and keep a diary for primary care follow-up. Patient to continue with full liquids and advance slowly as tolerated to low fiber diet. Currently no reports of chest pain, shortness of breath, or palpitations. Patient is afebrile. No reports of nausea or vomiting and patient is tolerating diet. Patient will be discharged home today. On exam vital signs are stable. Cardio S1, S2 are muffled. Respiratory system shows diminished breath sounds at the bases with no wheezing or rhonchi noted. Abdomen is soft and nontender. Nervous system shows no focal deficits. Please refer to medication reconciliation sheet for a list of medications. Patient Condition at Discharge: Fair Plan - Discharge Summary Discharge Rx Participant: No New Discharge Prescriptions: New Nystatin 100,000 Unit/gm Oint [Mycostatin Oint] 1 applic TOPICAL TID applic Cefuroxime Axetil [Ceftin] 500 mg PO BID 3 Days #6 tab Acetaminophen Tab [Tylenol Tab] 500 mg PO Q6H PRN #30 tablet PRN Reason: Pain Continue Insulin Glargine [Lantus] 60 unit SQ HS Levothyroxine Sodium [Synthroid] 50 mcg PO QAM Nitroglycerin Sl Tabs [Nitrostat] 0.4 mg SUBLINGUAL Q5M PRN #25 tab PRN Reason: Chest Pain Liothyronine Sodium [Cytomel] 5 mcg PO DAILY Sertraline HCl [Zoloft] 50 mg PO DAILY Cetirizine HCl [Zyrtec] 10 mg PO DAILY PRN PRN Reason: Allergy Symptoms Docusate [Colace] 100 mg PO BID PRN PRN Reason: Constipation Calcium Carbonate [Calcium] 600 mg PO DAILY Aspirin 81 mg PO DAILY #30 chew Ticagrelor [Brilinta] 90 mg PO BID #60 tab Cholecalciferol (Vitamin D3) [Vitamin D3 (5000 Iu)] 125 mcg PO DAILY lisinopriL [Zestril] 10 mg PO DAILY #30 tab Gabapentin 300 mg PO BID Glimepiride [Amaryl] 4 mg PO AC-BRKFST INSULIN ASPART (NovoLOG) [NovoLOG (formulary)] See Protocol SQ AC-TID carvediloL [Coreg] 6.25 mg PO BID-W/MEALS #60 tab INSULIN ASPART (NovoLOG) [NovoLOG (formulary)] 6 units SQ AC-TID Discontinued Furosemide [Lasix] 40 mg PO DAILY #30 tab Discharge Medication List Insulin Glargine [Lantus] 60 unit SQ HS 04/26/15 [History] Levothyroxine Sodium [Synthroid] 50 mcg PO QAM 08/21/17 [History] Nitroglycerin Sl Tabs [Nitrostat] 0.4 mg SUBLINGUAL Q5M PRN #25 tab 09/20/18 [Rx] Cetirizine HCl [Zyrtec] 10 mg PO DAILY PRN 05/06/20 [History] Liothyronine Sodium [Cytomel] 5 mcg PO DAILY 05/06/20 [History] Sertraline HCl [Zoloft] 50 mg PO DAILY 05/06/20 [History] Calcium Carbonate [Calcium] 600 mg PO DAILY 07/15/20 [History] Docusate [Colace] 100 mg PO BID PRN 07/15/20 [History] Aspirin 81 mg PO DAILY #30 chew 08/01/20 [Rx] Ticagrelor [Brilinta] 90 mg PO BID #60 tab 08/01/20 [Rx] Cholecalciferol (Vitamin D3) [Vitamin D3 (5000 Iu)] 125 mcg PO DAILY 02/18/21 [History] INSULIN ASPART (NovoLOG) [NovoLOG (formulary)] See Protocol SQ AC-TID 02/18/21 [History] carvediloL [Coreg] 6.25 mg PO BID-W/MEALS #60 tab 02/21/21 [Rx] lisinopriL [Zestril] 10 mg PO DAILY #30 tab 02/21/21 [Rx] Gabapentin 300 mg PO BID 04/07/21 [History] Glimepiride [Amaryl] 4 mg PO AC-BRKFST 04/07/21 [History] INSULIN ASPART (NovoLOG) [NovoLOG (formulary)] 6 units SQ AC-TID 04/07/21 [History] Acetaminophen Tab [Tylenol Tab] 500 mg PO Q6H PRN #30 tablet 04/08/21 [Rx] Cefuroxime Axetil [Ceftin] 500 mg PO BID 3 Days #6 tab 04/08/21 [Rx] Nystatin 100,000 Unit/gm Oint [Mycostatin Oint] 1 applic TOPICAL TID applic 04/08/21 [Rx] Follow up Appointment(s)/Referral(s): Boris Galeano MD [Primary Care Provider] - 04/12/21 3:15 pm (At the [facility]) Ambulatory/Diagnostic Orders: Complete Blood Count w/diff [LAB.AMB] Time Frame: 3 Days, Location: None Selected Patient Instructions/Handouts: Cefuroxime (By mouth), Acetaminophen (By mouth), Cholecystitis (GEN), Complete Blood Count (GEN), Acute Nausea and Vomiting (DC), Acute Abdominal Pain (DC), Abdominal Pain (ED) Activity/Diet/Wound Care/Special Instructions: Activity Limited until follow-up Follow-up with primary care provider this week Repeat labs in 2-3 days to monitor kidney functions Continue to hold Lasix until lab draw and follow-up with primary care provider Continue with antibiotics for the next 3 days to finish the course Continue with full liquid diet and slowly advance over the next few days to low fiber as tolerated Continue to monitor Accu-Cheks before meals and at bedtime and keep a diary for primary care follow-up Discharge Disposition: HOME SELF-CARE
== END 2021-04-08 14:13 | disposition home or self-care (01) ==
LOC: EC 03:29 → 6NMEDSUR 05:02
PROVIDERS: ADMIT Hospitalist; ATTEND Hospitalist
DX: N39.0 Urinary tract infection, site not specified (principal); R10.31 Right lower quadrant pain; B37.2 Candidiasis of skin and nail; E87.1 Hypo-osmolality and hyponatremia; N17.0 Acute kidney failure with tubular necrosis; E11.65 Type 2 diabetes mellitus with hyperglycemia; K76.0 Fatty (change of) liver, not elsewhere classified; R79.89 Other specified abnormal findings of blood chemistry; I13.0 Hypertensive heart and chronic kidney disease with heart failure and stage 1 through stage 4 chronic kidney disease, or unspecified chronic kidney disease; I50.9 Heart failure, unspecified; Z86.73 Personal history of transient ischemic attack (TIA), and cerebral infarction without residual deficits; E78.5 Hyperlipidemia, unspecified; M19.90 Unspecified osteoarthritis, unspecified site; E03.9 Hypothyroidism, unspecified; E11.319 Type 2 diabetes mellitus with unspecified diabetic retinopathy without macular edema; E11.22 Type 2 diabetes mellitus with diabetic chronic kidney disease; E11.42 Type 2 diabetes mellitus with diabetic polyneuropathy; I25.10 Atherosclerotic heart disease of native coronary artery without angina pectoris; Z95.5 Presence of coronary angioplasty implant and graft; F31.9 Bipolar disorder, unspecified; F41.9 Anxiety disorder, unspecified; E66.9 Obesity, unspecified; Z68.42 Body mass index [BMI] 45.0-49.9, adult; R19.7 Diarrhea, unspecified; R11.2 Nausea with vomiting, unspecified; I25.2 Old myocardial infarction; G47.33 Obstructive sleep apnea (adult) (pediatric); I25.5 Ischemic cardiomyopathy; H54.61 Unqualified visual loss, right eye, normal vision left eye; H91.90 Unspecified hearing loss, unspecified ear; G89.29 Other chronic pain; M54.9 Dorsalgia, unspecified; G43.909 Migraine, unspecified, not intractable, without status migrainosus; M81.0 Age-related osteoporosis without current pathological fracture; N18.9 Chronic kidney disease, unspecified; E04.1 Nontoxic single thyroid nodule; Z20.822 Contact with and (suspected) exposure to COVID-19; Z90.49 Acquired absence of other specified parts of digestive tract; Z79.890 Hormone replacement therapy; Z79.899 Other long term (current) drug therapy; Z79.82 Long term (current) use of aspirin; Z79.4 Long term (current) use of insulin; Z79.02 Long term (current) use of antithrombotics/antiplatelets; Z91.041 Radiographic dye allergy status; Z91.040 Latex allergy status; Z88.8 Allergy status to other drugs, medicaments and biological substances; Z91.048 Other nonmedicinal substance allergy status; Z90.710 Acquired absence of both cervix and uterus; Z99.89 Dependence on other enabling machines and devices; Z80.7 Family history of other malignant neoplasms of lymphoid, hematopoietic and related tissues; Z82.49 Family history of ischemic heart disease and other diseases of the circulatory system; Z80.1 Family history of malignant neoplasm of trachea, bronchus and lung; Z80.8 Family history of malignant neoplasm of other organs or systems; Z80.0 Family history of malignant neoplasm of digestive organs; Z82.69 Family history of other diseases of the musculoskeletal system and connective tissue
CPT/HCPCS: 96376; 96361 ×3; 96366 ×2; 96375; 96365; 99285; 36415; 93005; 83880; 80053 ×2; 82550; 82009; 83605; 83690; 83735 ×2; 84100 ×2; 84484; 85025 ×2; 85610 ×2; 85730; 81001; 87040; 87086; 87635; 71045; 76705; 74176; G0378 ×2; J0696 ×3; C9113 ×2

== ENCOUNTER → 2021-06-29 | Outpatient (CLI) | payer MEDICARE ==
--- NOTE | 2021-07-06 10:23 | P.ARTDOP ---
Arterial Doppler LOWER EXTREMITY ARTERIAL DOPPLER: DATE OF SERVICE: 06/29/2021 Reason for study: Diabetic ulcer right foot. Doppler waveforms: Multiphasic throughout on the right with good toe waveforms. Multiphasic at the left femoral and atypical below. Digital waveforms are flat line.. Pulse volume recording: []. Pressure gradients: Bilaterally above the ankle. Ankle-brachial indices: 0.56 on the right and 0.26 on the left Toe brachial indices: 0.32 on the right on the right, [] on the left Impression: Moderate right fem-pop disease and severe left fem-pop disease. Suggest vascular specialty referral..
== END | disposition home or self-care (01) ==
LOC: RADUSWWP 14:28
PROVIDERS: ATTEND Thoracic Surgery (Cardiothoracic Vascular Surgery)
DX: E08.621 Diabetes mellitus due to underlying condition with foot ulcer (principal); L97.512 Non-pressure chronic ulcer of other part of right foot with fat layer exposed
CPT/HCPCS: 93922; 93923

== ENCOUNTER 2021-07-15 21:25 | Inpatient (IN) | payer MEDICARE ==
--- NOTE | 2021-07-15 22:24 | ED ---
Chest Pain HPI - General Chief Complaint: Chest Pain Stated Complaint: Chest pain Time Seen by Provider: 07/15/21 22:18 Source: patient, RN notes reviewed, old records reviewed Mode of arrival: wheelchair Limitations: no limitations - History of Present Illness Initial Comments: This is a 71-year-old female to the ER for evaluation. Patient presents today for evaluation regards to bilateral lower extremity edema, chest pain. Patient states the chest pain has been ongoing for about a week which he notices mostly to be worse at night. No significant associated shortness of breath or diaphoresis. Patient states she did have stents placed a little over a year ago and did have stress test about one year ago. Patient has been weak and fatigued as of late MD Complaint: chest pain -: week(s) Onset: during rest Pain Location: substernal Severity: moderate Severity scale (1-10): 4 Quality: heaviness Consistency: intermittent Improves With: nothing Worsens With: nothing Other Symptoms: palpitations Treatments Prior to Arrival: none - Related Data Home Medications Medication Instructions Recorded Confirmed Insulin Glargine [Lantus Vial] 60 unit SQ HS 04/26/15 04/07/21 Levothyroxine Sodium [Synthroid] 50 mcg PO QAM 08/21/17 04/07/21 Cetirizine HCl [Zyrtec] 10 mg PO DAILY PRN 05/06/20 04/07/21 Liothyronine Sodium [Cytomel] 5 mcg PO DAILY 05/06/20 04/07/21 Sertraline HCl [Zoloft] 50 mg PO DAILY 05/06/20 04/07/21 Calcium Carbonate [Calcium] 600 mg PO DAILY 07/15/20 04/07/21 Docusate [Colace] 100 mg PO BID PRN 07/15/20 04/07/21 Cholecalciferol (Vitamin D3) 125 mcg PO DAILY 02/18/21 04/07/21 [Vitamin D3 (5000 Iu)] INSULIN ASPART (NovoLOG) [NovoLOG See Protocol SQ AC-TID 02/18/21 04/07/21 (formulary)] Gabapentin 300 mg PO BID 04/07/21 04/07/21 Glimepiride [Amaryl] 4 mg PO AC-BRKFST 04/07/21 04/07/21 INSULIN ASPART (NovoLOG) [NovoLOG 6 units SQ AC-TID 04/07/21 04/07/21 (formulary)] Previous Rx's Medication Instructions Recorded Nitroglycerin Sl Tabs [Nitrostat] 0.4 mg SUBLINGUAL Q5M PRN #25 tab 09/20/18 Aspirin 81 mg PO DAILY #30 chew 08/01/20 Ticagrelor [Brilinta] 90 mg PO BID #60 tab 08/01/20 carvediloL [Coreg] 6.25 mg PO BID-W/MEALS #60 tab 02/21/21 lisinopriL [Zestril] 10 mg PO DAILY #30 tab 02/21/21 Acetaminophen Tab [Tylenol Tab] 500 mg PO Q6H PRN #30 tablet 04/08/21 Cefuroxime Axetil [Ceftin] 500 mg PO BID 3 Days #6 tab 04/08/21 Nystatin 100,000 Unit/gm Oint 1 applic TOPICAL TID applic 04/08/21 [Mycostatin Oint] Allergies Allergy/AdvReac Type Severity Reaction Status Date / Time Iodinated Contrast Media Allergy Swelling, Verified 07/15/21 21:36 [Iodinated Contrast Media - SHORTNESS IV Dye] OF BREATH latex Allergy Rash/Hives Verified 07/15/21 21:36 talc Allergy Rash/Hives Verified 07/15/21 21:36 adhesive tape AdvReac blisters Verified 07/15/21 21:36 amlodipine AdvReac ankle Verified 07/15/21 21:36 swelling hydralazine AdvReac Diarrhea Verified 07/15/21 21:36 metal Allergy Rash/Hives Uncoded 07/15/21 21:36 Review of Systems ROS Statement: Those systems with pertinent positive or pertinent negative responses have been documented in the HPI. ROS Other: All systems not noted in ROS Statement are negative. EKG Findings - EKG Comments: EKG Findings:: EKG is sinus rhythm rate 99 NV 170 QRS 78 QTc 459 Past Medical History Past Medical History: Coronary Artery Disease (CAD), CVA/TIA, Diabetes Mellitus, Eye Disorder, Hearing Disorder / Deafness, Hypertension, Liver Disease, Myocardial Infarction ([place]), Osteoarthritis (OA), Sleep Apnea/CPAP/BIPAP, Syncope, Thyroid Disorder Additional Past Medical History / Comment(s): IDDM type II, neuropathy knees down bilaterally, ischemic cardiopmyopathy, 2009 small CVA with occasional word finding difficulty, R eye retinal bleed with some vision loss, bilateral diabetic retinopathy, fatty liver, chronic back pain, DDD< mild central canal stenosis, migraines, osteoporosis, UTI, bilateral tinnitis, BROCK no longer tolerates Cpap, benign thyroid nodules, CHI age 14, sycopal episodes as a child, sinus problems, wounds on feet Last Myocardial Infarction Date:: 07/2020 History of Any Multi-Drug Resistant Organisms: None Reported Past Surgical History: Breast Surgery, Heart Catheterization With Stent, Hysterectomy, Orthopedic Surgery, Tubal Ligation Additional Past Surgical History / Comment(s): PCI with stents in 06/2020 and 07/2020, several thyroid gland bxs, bilateral benign breast lumpectomies, D&c, bilateral feet 2 hammer toes each, R knee arthroscopy, low back injections, TTT, colonoscopies, bilateral cataract removals. Past Anesthesia/Blood Transfusion Reactions: No Reported Reaction, Motion Sickness Additional Past Anesthesia/Blood Transfusion Reaction / Comment(s): hypotension/memory problems Date of Last Stent Placement:: 2019 Past Psychological History: Anxiety, Bipolar, Depression Smoking Status: Never smoker Past Alcohol Use History: None Reported Past Drug Use History: None Reported - Past Family History Father Family Medical History: Cancer Additional Family Medical History / Comment(s): Father had lymphoma. He had LUNG, BONE, THROAT AND MOUTH CANCER Brother(s) Family Medical History: Myocardial Infarction ([place]) Additional Family Medical History / Comment(s): Muscle Disease, Rheumatic fever at 2 years old Mother Family Medical History: Cancer Additional Family Medical History / Comment(s): lung cancer- mother. She at the age of 79yrs from esophageal valencia after radiation-unable to eat. Patient states "mother had aneurysm". General Exam General appearance: alert, in no apparent distress, obese Head exam: Present: atraumatic, normocephalic, normal inspection Eye exam: Present: normal appearance, PERRL, EOMI. Absent: scleral icterus, conjunctival injection, periorbital swelling ENT exam: Present: normal exam, mucous membranes moist Neck exam: Present: normal inspection. Absent: tenderness, meningismus, lymphadenopathy Respiratory exam: Present: normal lung sounds bilaterally. Absent: respiratory distress, wheezes, rales, rhonchi, stridor Cardiovascular Exam: Present: regular rate, normal rhythm, normal heart sounds. Absent: systolic murmur, diastolic murmur, rubs, gallop, clicks GI/Abdominal exam: Present: soft, normal bowel sounds. Absent: distended, tenderness, guarding, rebound, rigid Extremities exam: Present: normal inspection, full ROM, normal capillary refill, other (Bilateral lower extremity edema). Absent: tenderness, pedal edema, joint swelling, calf tenderness Back exam: Present: normal inspection Neurological exam: Present: alert, oriented X3, CN II-XII intact Psychiatric exam: Present: normal affect, normal mood Skin exam: Present: warm, dry, intact, normal color. Absent: rash Course Vital Signs 07/15/21 08 21:33 22:59 Temperature 99.3 F Pulse Rate 100 105 H Respiratory 21 20 Rate Blood Pressure 139/60 165/104 O2 Sat by Pulse 95 94 L Oximetry - Reevaluation(s) Reevaluation #1: 07/16/21 00:49 Medical record is reviewed Reevaluation #2: 07/16/21 00:49 A patient does have occasional persistent chest pain here in the ER Reevaluation #3: 07/16/21 00:49 Patient is informed of results and questions have been answered Chest Pain MDM - MDM 71 female to the ER for evaluation of acute chest pain 1 week episodic in nature worse at night. Patient does have elevated troponin and will be admitted for cardiology evaluation and management Disposition Clinical Impression: Acute non-ST elevation myocardial infarction (NSTEMI), Chest pain Disposition: ADMITTED IP TO THIS HOSP Condition: Serious Is patient prescribed a controlled substance at d/c from ED?: No Referrals: Boris Galeano MD [Primary Care Provider] - 1-2 days
[2021-07-15 22:45] LABS: Basophils # (A) 0.1 k/uL (0-0.2); Basophils % (A) 0 %; Eosinophils # (A) 0.4 k/uL (0-0.7); Eosinophils % (A) 3 %; HCT 37.8 % (34.0-46.0); HGB 12.1 gm/dL (11.4-16.0); Lymphocytes # (A) 1.5 k/uL (1.0-4.8); Lymphocytes % (A) 11 %; MCH 27.2 pg (25.0-35.0); MCV 85.1 fL (80.0-100.0); Mean Platelet Volume 6.9; Monocytes # (A) 0.6 k/uL (0-1.0); Monocytes % (A) 4 %; Neutrophils # (A) 10.5 k/uL (1.3-7.7); Neutrophils % (A) 81 %; Platelet Count 273 k/uL (150-450); RBC 4.44 m/uL (3.80-5.40); RDW 15.3 % (11.5-15.5); WBC 13.1 k/uL (3.8-10.6)
[2021-07-15 23:03] LABS: INR 0.9 (<1.2); Prothrombin Time 9.5 sec (9.0-12.0)
[2021-07-15 23:08] LABS: Partial Thromboplastin Time 21.8 sec (22.0-30.0)
--- NOTE | 2021-07-15 23:33 | XR ---
EXAMINATION TYPE: XR chest 2V DATE OF EXAM: 07/15/2021 COMPARISON: 04/07/2021 HISTORY: Chest pain TECHNIQUE: FINDINGS: Heart and mediastinum are normal. Lungs are clear of consolidation. There are no hilar mass es. Costophrenic angles are clear. There are chest leads. IMPRESSION: No active cardiopulmonary disease. Normal heart. Lung markings increased slightly compare d to old exam.
[2021-07-15 23:49] LABS: Albumin 3.3 g/dL (3.5-5.0); Calcium 10.2 mg/dL (8.4-10.2); Magnesium 1.7 mg/dL (1.6-2.3); Potassium 4.6 mmol/L (3.5-5.1); Total Bilirubin 0.4 mg/dL (0.2-1.3)
[2021-07-16] MEDS ORDERED: HEPARIN SODIUM 1,000 UN/ML (10ML VL) IV ONE (00:43)
[2021-07-16] MEDS ORDERED: NITROGLYCERIN SL TABS 0.4 MG TAB SUBLINGUAL PRN (00:43)
[2021-07-16] MEDS ORDERED: ASPIRIN 81 MG PO STA (00:43)
[2021-07-16] MEDS ORDERED: HEPARIN SOD,PORK IN 0.45% NACL 25,000 UNIT in 0.45% NACL 1 250ML.BAG IV SCH (00:45)
[2021-07-16] MEDS: SODIUM CHLORIDE 0.9% 1,000 ML IV SCH ×3 (01:29→15:55)
[2021-07-16 02:26] LABS: Glucose,Whole Blood 368 mg/dL (75-99)
[2021-07-16] MEDS ORDERED: METOPROLOL TARTRATE 25 MG TAB PO SCH (09:00)
--- NOTE | 2021-07-16 10:11 | P.CRDCN ---
History of Present Illness Consult reason: non-Q-wave DC History of present illness: The patient is a 71-year-old female with past medical history of coronary artery disease status post stenting in June and July 2020, obesity, diabetes, and hypertension who follows in the office with Dr. Acevedo. Cardiology was co nsulted after the patient presented to the emergency room with chest discomfort occurring over the last 2 days. She states it was a pressure-like sensation and was occurring in the evening hours. She states it was not associated with any medication or oral intake. She states that this it did not radiate to her jaw or her left arm. She does have chronic shortness of breath, which she states is unchanged. The patient has been following with a vascular surgeon for abnormal BALTAZAR. She states she is scheduled to undergo aortogram and stress testing within the next several weeks. We discussed EKG abnormality along with elevated troponins in detail with the patient. We recommend proceeding with coronary angiogram. DIAGNOSTICS: EKG shows sinus mechanism with ST depression in lead 1 and aVL Chest x-ray shows no active cardiopulmonary disease Laboratory data: WBC 13.1, hemoglobin 12.1, hematocrit 37.8, platelet 273, sodium 133, potassium 4.6, BUN 25, creatinine 1.04, AST 24, ALT 16, BNP 1930, troponin 0.07, 1.13, 1.14 Vital signs: Temp 98F, pulse rate 74, respiratory rate 19, blood pressure 157/59, SpO2 95% on room air PAST MEDICAL HISTORY: Coronary artery disease status post stenting, hypertension, dyslipidemia, diabetes mellitus, sleep apnea with CPAP, hypothyroidism, obesity, CVA, and ischemic myopathy REVIEW OF SYSTEMS: No fever or chills. No cough or expectoration. No shital phoresis. Patient denies headache, dizziness, blurred vision, double vision. Patient denies any stomach discomfort. No nausea, vomiting. No hematochezia. No hematemesis. Denies any black stools or blood in his stools. Denies dysuria or hematuria. No muscle weakness or numbness. Positive for chest pressure. Positive for shortness of breath PHYSICAL EXAMINATION: This is a 71-year-old obese female in no apparent distress at the time of my examination. HEENT: Head is atraumatic, normocephalic. Pupils are equal, round. Sclerae anicteric. Conjunctivae are clear. Mucous membranes of the mouth are moist. Neck is supple. There is no jugular venous distention. No carotid bruit is heard. CHEST EXAMINATION: Lungs are clear to auscultation. No chest wall tenderness is noted on palpation or with deep breathing. HEART EXAMINATION: Heart regular rate and rhythm. S1, S2 heard. No murmurs, gallops or rub. ABDOMEN: Soft, nontender. Bowel sounds are heard. No organomegaly noted. EXTREMITIES: Mild generalized edema and no calf tenderness noted. No palpable peripheral pulses NEUROLOGIC EXAMINATION: Patient is awake, alert and oriented x3. FINAL ASSESSMENT AND PLAN: NSTEMI, elevated troponins with abnormalities in lateral leads History of coronary artery disease, prior stenting in June and July 2020 Diabetes mellitus, poorly controlled Obesity, BMI 48, peripheral vascular disease, following with vascular surgery Congestive heart failure, elevated BNP PLAN: Continue heparin drip Atorvastatin 80 mg daily Proceed with coronary angiogram Further recommendations will respond clinical course The patient has been seen and evaluated. Plan of care has been reviewed and agreed upon by Dr Rivera. Past Medical History Past Medical History: Coronary Artery Disease (CAD), CVA/TIA, Diabetes Mellitus, Eye Disorder, Hearing Disorder / Deafness, Hypertension, Liver Disease, Myocardial Infarction ([place]), Osteoarthritis (OA), Sleep Apnea/CPAP/BIPAP, Syncope, Thyroid Disorder Additional Past Medical History / Comment(s): IDDM type II, neuropathy knees down bilaterally, ischemic cardiopmyopathy, 2009 small CVA with occasional word finding difficulty, R eye retinal bleed with some vision loss, bilateral diabetic retinopathy, fatty liver, chronic back pain, DDD< mild central canal stenosis, migraines, osteoporosis, UTI, bilateral tinnitis, BROCK no longer tolerates Cpap, benign thyroid nodules, CHI age 14, sycopal episodes as a child, sinus problems, wounds on feet Last Myocardial Infarction Date:: 07/2020 History of Any Multi-Drug Resistant Organisms: None Reported Past Surgical History: Breast Surgery, Heart Catheterization With Stent, Hyste rectomy, Orthopedic Surgery, Tubal Ligation Additional Past Surgical History / Comment(s): PCI with stents in 06/2020 and 07/2020, several thyroid gland bxs, bilateral benign breast lumpectomies, D&c, bilateral feet 2 hammer toes each, R knee arthroscopy, low back injections, TTT, colonoscopies, bilateral cataract removals. Past Anesthesia/Blood Transfusion Reactions: No Reported Reaction, Motion Sickness Additional Past Anesthesia/Blood Transfusion Reaction / Comment(s): hypotension/memory problems Date of Last Stent Placement:: 2019 Past Psychological History: Anxiety, Bipolar, Depression Smoking Status: Never smoker Past Alcohol Use History: None Reported Past Drug Use History: None Reported - Past Family History Father Family Medical History: Cancer Additional Family Medical History / Comment(s): Father had lymphoma. He had LUNG, BONE, THROAT AND MOUTH CANCER Brother(s) Family Medical History: Myocardial Infarction ([place]) Additional Family Medical History / Comment(s): Muscle Disease, Rheumatic fever at 2 years old Mother Family Medical History: Cancer Additional Family Medical History / Comment(s): lung cancer- mother. She at the age of 79yrs from esophageal valencia after radiation-unable to eat. Patient states "mother had aneurysm". Medications and Allergies Home Medications Medication Instructions Recorded Confirmed Type Insulin Glargine [Lantus Vial] 60 unit SQ HS 04/26/15 07/16/21 History Levothyroxine Sodium [Synthroid] 50 mcg PO AC-BRKFST 08/21/17 07/16/21 History Cetirizine HCl [Zyrtec] 10 mg PO DAILY PRN 05/06/20 07/16/21 History Liothyronine Sodium [Cytomel] 5 mcg PO DAILY 05/06/20 07/16/21 History Sertraline HCl [Zoloft] 50 mg PO DAILY 05/06/20 07/16/21 History Calcium Carbonate [Calcium] 600 mg PO DAILY 07/15/20 07/16/21 History Docusate [Colace] 100 mg PO BID PRN 07/15/20 07/16/21 History Aspirin 81 mg PO DAILY #30 chew 08/01/20 07/16/21 Rx Ticagrelor [Brilinta] 90 mg PO BID #60 tab 08/01/20 07/16/21 Rx Cholecalciferol (Vitamin D3) 125 mcg PO DAILY 02/18/21 07/16/21 History [Vitamin D3 (5000 Iu)] INSULIN ASPART (NovoLOG) [NovoLOG See Protocol SQ AC-TID 02/18/21 07/16/21 Histo ry (formulary)] Gabapentin 300 mg PO TID 04/07/21 07/16/21 History Glimepiride [Amaryl] 4 mg PO AC-BRKFST 04/07/21 07/16/21 History INSULIN ASPART (NovoLOG) [NovoLOG 6 units SQ AC-TID 04/07/21 07/16/21 History (formulary)] ARIPiprazole [Abilify] 5 mg PO DAILY 07/16/21 07/16/21 History Diclofenac Sodium Gel [Voltaren 4 gm TOPICAL QID PRN 07/16/21 07/16/21 History Gel] Gentamicin 0.1% Cream 1 applic TOPICAL BID 07/16/21 07/16/21 History Nitroglycerin Sl Tabs [Nitrostat] 0.4 mg SL Q5M PRN 07/16/21 07/16/21 History Triamterene-Hctz 37.5-25Mg 1 cap PO DAILY 07/16/21 07/16/21 History [Dyazide 37.5-25 Capsule] carvediloL [Coreg] 6.25 mg PO AC-BID 07/16/21 07/16/21 History lisinopriL [Zestril] 2.5 mg PO DAILY 07/16/21 07/16/21 History rOPINIRole HCL [Requip] 0.5 mg PO HS 07/16/21 07/16/21 History Allergies Allergy/AdvReac Type Severity Reaction Status Date / Time Iodinated Contrast Media Allergy Swelling, Verified 07/16/21 09:06 [Iodinated Contrast Media - SHORTNESS IV Dye] OF BREATH latex Allergy Rash/Hives Verified 07/16/21 09:06 talc Allergy Rash/Hives Verified 07/16/21 09:06 adhesive tape AdvReac blisters Verified 07/16/21 09:06 amlodipine AdvReac ankle Verified 07/16/21 09:06 swelling hydralazine AdvReac Diarrhea Verified 07/16/21 09:06 metal Allergy Rash/Hives Uncoded 07/16/21 09:06 Physical Exam Vitals: Vital Signs Temp Pulse Resp BP Pulse Ox 07/16/21 08:44 98 F 74 19 157/59 95 07/16/21 06:55 70 20 171/68 95 07/16/21 05:53 84 20 171/68 97 07/16/21 02:56 85 20 189/81 97 07/15/21 22:59 105 H 20 165/104 94 L 07/15/21 21:33 99.3 F 100 21 139/60 95 Intake and Output 07/15/21 07/16/21 07/16/21 22:59 06:59 14:59 Other: Weight 136.078 kg Results 07/15/21 22:31 07/15/21 22:31 Cardiac Enzymes 07/15/21 07/15/21 07/16/21 Range/Units 22:31 22:31 01:52 AST 24 (14-36) U/L Troponin I 0.078 H* 1.130 H* (0.000-0.034) ng/mL 07/16/21 Range/Units 05:37 AST (14-36) U/L Troponin I 1.460 H* (0.000-0.034) ng/mL Coagulation 07/15/21 Range/Units 22:31 PT 9.5 (9.0-12.0) sec APTT 21.8 L (22.0-30.0) sec CBC 07/15/21 Range/Units 22:31 WBC 13.1 H (3.8-10.6) k/uL RBC 4.44 (3.80-5.40) m/uL Hgb 12.1 (11.4-16.0) gm/dL Hct 37.8 (34.0-46.0) % Plt Count 273 (150-450) k/uL Comprehensive Metabolic Panel 07/15/21 Range/Units 22:31 Sodium 133 L (137-145) mmol/L Potassium 4.6 (3.5-5.1) mmol/L Chloride 104 (98-107) mmol/L Carbon Dioxide 21 L (22-30) mmol/L BUN 25 H (7-17) mg/dL Creatinine 1.04 (0.52-1.04) mg/dL Glucose 403 H (74-99) mg/dL Calcium 10.2 (8.4-10.2) mg/dL AST 24 (14-36) U/L ALT 16 (4-34) U/L Alkaline Phosphatase 120 (38-126) U/L Total Protein 6.0 L (6.3-8.2) g/dL Albumin 3.3 L (3.5-5.0) g/dL Current Medications Generic Name Dose Route Start Last Admin Trade Name Freq PRN Reason Stop Dose Admin Aspirin 325 mg 07/17/21 09:00 Aspirin 325 Mg Tab PO DAILY VINCE Sodium Chloride 1,000 mls @ 100 mls/hr 07/16/21 00:45 07/16/21 01:29 Saline 0.9% IV 100 mls/hr .Q10H VINCE Administration Heparin Sodium/Sodium Chloride 250 mls @ 10.002 mls/hr 07/16/21 00:45 07/16/21 01:28 25,000 unit/ Sodium Chloride IV 7.35 units/kg/hr .Q24H VINCE 10.002 mls/hr Administration Protocol 7.35 UNITS/KG/HR Metoprolol Tartrate 25 mg 07/16/21 09:00 07/16/21 08:40 Metoprolol Tartrate 25 Mg Tab PO 25 mg BID VINCE Administration Morphine Sulfate 4 mg 07/16/21 00:43 Morphine Sulfate 4 Mg/Ml Syringe IV Q4HR PRN Chest Pain Nitroglycerin 0.4 mg 07/16/21 00:43 Nitroglycerin Sl Tabs 0.4 Mg Tab SUBLINGUAL Q5M PRN Chest Pain Intake and Output 07/15/21 07/16/21 07/16/21 22:59 06:59 14:59 Other: Weight 136.078 kg 07/15/21 22:31 07/15/21 22:31
[2021-07-16] MEDS ORDERED: SODIUM CHLORIDE 0.9% 1,000 ML in EMPTY BAG 1 BAG IV ONE (10:12)
[2021-07-16] MEDS ORDERED: ALPRAZolam 0.25 MG TAB PO PRN (10:12)
[2021-07-16] MEDS ORDERED: ALPRAZolam 0.5 MG TAB PO PRN (10:12)
[2021-07-16] MEDS ORDERED: HEPARIN SODIUM 1,000 UN/ML (10ML VL) IVP PRN (11:30)
[2021-07-16] MEDS ORDERED: SODIUM CHLORIDE 0.9% 1,000 ML IV ONE (13:20)
[2021-07-16] MEDS ORDERED: HEPARIN SODIUM 1,000 UN/ML (10ML VL) ONE (13:39)
[2021-07-16] MEDS ORDERED: methylPREDNISolone SOD SUCCI 125 MG/2 ML VIAL IV ONE (13:40)
[2021-07-16] MEDS ORDERED: MIDAZOLAM 2 MG/2 ML VIAL IV ONE (13:40)
[2021-07-16] MEDS ORDERED: LIDOCAINE 1% INJ 10MG/ML (20 ML MDV) SQ ONE (13:40)
[2021-07-16] MEDS ORDERED: NITROGLYCERIN SL TABS 0.4 MG TAB SUBLINGUAL ONE ×4 (13:42→14:13)
[2021-07-16] MEDS ORDERED: methylPREDNISolone SOD SUCCI 125 MG/2 ML VIAL ONE (13:44)
[2021-07-16] MEDS: NITROGLYCERIN 1000MCG/10ML SYRINGE INTRACORON ONE ×3 (13:48→14:07)
[2021-07-16] MEDS ORDERED: TICAGRELOR 90 MG TAB ONE (13:54)
[2021-07-16] MEDS: HEPARIN SODIUM 1,000 UN/ML (10ML VL) IV ONE ×2 (13:55→14:05)
[2021-07-16] MEDS ORDERED: TICAGRELOR 90 MG TAB PO ONE (13:57)
[2021-07-16] MEDS ORDERED: IOPAMIDOL-370 100ML BTL INJ ONE (14:09)
[2021-07-16 14:45] LABS: Glucose,Whole Blood 254 mg/dL (75-99)
[2021-07-16] MEDS ORDERED: DOCUSATE 100 MG CAP PO PRN (15:15)
[2021-07-16] MEDS ORDERED: LABETALOL 5 MG/ML VIAL MDV IVP STA (15:24)
[2021-07-16] MEDS: carvediloL 12.5 MG TAB PO SCH (16:43)
[2021-07-16] MEDS: INSULIN ASPART (NovoLOG) 100 UNIT/ML VIAL SQ SCH ×2 (16:53→21:32)
--- NOTE | 2021-07-16 18:15 | CC ---
CARDIAC CATHETERIZATION REPORT DATE OF SERVICE: 07/16/2021. PROCEDURE: 1. Left heart catheterization and coronary angiography. 2. PTCA and stenting of a restenotic lesion within the proximal LAD stent. PERFORMED BY: Dr. Nolvia Lynn. Moderate conscious sedation time was 38 minutes. CLINICAL INFORMATION: Karly Goyal is a 71-year-old lady with a known diagnosis of hypertension, diabetes, hyperlipidemia, also CAD. She underwent LAD stenting performed in June 2020 and 2 weeks later on August 01 or so 2019 she had a totally occluded LAD that was opened up by me with a larger proximal LAD stent, and I also dilated the entire mid LAD that was stented before. However, she did well until recently and has been having some issues with a poorly healing wound. She came in with chest pain and troponin elevation, was seen and evaluated by Dr. Rivera and advised cardiac cath. I explained to her the rationale, risks, benefits and options and proceeded to perform the procedure. PROCEDURE NOTE: I performed the procedure from the right femoral artery because the radial pulses were very poor and not palpable at all, and also I could not do a proper Chris test. Under local anesthesia and strict aseptic precautions, a 6-Tamazight introducer was placed in the right femoral artery. Using standard Vini catheters I performed coronary angiography. A right standard Vini catheter was used to perform coronary angiography of the right coronary artery. The same catheter was used to check LV pressures. I then used a JL3.5 guide catheter to perform selective coronary angiography of the left system, and the same catheter was used to perform the PCI. The patient received heparin, and ACT was kept between 250 and 300 on an average. She was already on Brilinta; additional 180 mg of Brilinta was given. Following the cardiac cath, I performed PCI and then used an Angio-Seal device to secure hemostasis and she was sent to the room in a stable condition. CARDIAC CATHETERIZATION FINDINGS: The left ventricular end-diastolic pressure was about 18 mmHg without any gradient across the aortic valve. CORONARY ANGIOGRAPHY FINDINGS: RIGHT CORONARY ARTERY: Dominant vessel has about a 55% lesion distally before bifurcation, which is the same as what was seen in July of last year. Branches of RCA have minor irregularities. No significant disease. LEFT MAIN CORONARY ARTERY: Short, patent, disease-free vessel that bifurcates into LAD and circumflex. LEFT ANTERIOR DESCENDING CORONARY ARTERY: This vessel was stented. In the proximal stent there is an area of haziness with a 95% narrowing and appears to be the culprit lesion. Beyond that, this proximal stent is telescoped into the mid LAD stent and that area looks good. Beyond it, the caliber of the LAD is small, gives off diagonal branches, runs all the way to the apex, supplying a sizable amount of myocardium. LAD therefore has a restenotic lesion in the proximal stent, which was a larger 3.25 caliber stent. LEFT POSTERIOR CIRCUMFLEX CORONARY ARTERY: Nondominant vessel, fair caliber. At the mid portion after the origin of a groove branch there is a 55% to 60% stenosis, unchanged from July of last year, and distal branches are free of significant disease. Circumflex is nondominant, yet obtuse marginal is of large caliber and distribution. LEFT VENTRICULOGRAM: Left ventriculogram was not performed. FINAL IMPRESSION: This patient has elevated filling pressures, no gradient, a right-dominant system with a 55% distal RCA and a 55% mid circumflex lesion. Proximal LAD that was stented in the proximal stent has a restenotic lesion of 95% with haziness, which is the culprit lesion. RECOMMENDATIONS: I recommended PCI and performed this expeditiously. Moderate conscious sedation time was 38 minutes. Patient was administered Versed. Oxygen saturation, hemodynamics and EKG were monitored closely. PCI PROCEDURE DETAILS: I used a 3.5 left Vini guide catheter to cannulate the left coronary artery. A run- through wire was used to cross the lesion. Wire was kept distally. I used a 3.25 caliber NC Trek balloon to dilate the lesion. I used the same balloon to dilate the distal aspect also. I then deployed an 8 mm long 3.5 caliber Xience stent at 14 atmospheres. The same balloon was used to dilate the distal aspect of the mid LAD stent as well. Excellent angiographic result without complication was achieved. Patient had chest pain and precordial ST elevation. ACT was kept between 250 and 300 on an average. Excellent result was achieved. The sheath was taken out and Angio-Seal device used to secure hemostasis and she was sent to the room in stable condition. No family was available, but her sister Henny Marie was informed of the results. She was sent to the room in a stable condition. MMODL / IJN: [id number] /
[2021-07-16 20:45] LABS: Glucose,Whole Blood 370 mg/dL (75-99)
[2021-07-16] MEDS ORDERED: lisinopriL 20 MG TAB PO SCH ×2 (21:00)
[2021-07-16] MEDS: VALSARTAN 160 MG TAB PO SCH (21:31)
[2021-07-16] MEDS: ATORVASTATIN 80 MG TAB PO SCH (21:32)
[2021-07-16] MEDS: INSULIN DETEMIR (LEVEMIR) 100 UNIT/ML SYR SQ SCH (21:32)
[2021-07-16] MEDS ORDERED: HYDROcodone/APAP 5-325MG 1 EACH TAB PO STA (23:33)
--- NOTE | 2021-07-17 00:04 | P.HPIM ---
History of Present Illness H&P Date: 07/16/21 Chief Complaint: Chest pain Ms. Daniels is a 71-year-old female with a past medical history of coronary artery disease, CVA/TIA, diabetes mellitus, hearing disorder, hypertension, myocardial infarction, osteoarthritis, obstructive sleep apnea, thyroid disorder, ischemic cardiomyopathy, diabetic retinopathy coming into the hospital with a chief complaint of chest pain. Patient states that she has been having chest pain that has been going on for about 1 week and worse at night and evening hours. Patient states that she feels like pressure in her substernal ar ea with no radiation. She has mild difficulty in breathing at baseline and no worsening of her symptoms. Patient follows with Dr. Be as outpatient and is scheduled to undergo aortogram and stress testing in few weeks. Patient denied having any fevers chills or rigors. No cough or difficulty in breathing associated with it. No abdominal pain, nausea vomiting or diarrhea. No dysuria or hematuria. Patient denied having any headaches, neck pain, blurring of vision. In the ER at the time of admission patient's vitals temperature 99.3, heart rate 100, respiratory 21, blood pressure 139/60 saturating at 95% on room air. Patient had labs done showing white count of 13.1, hemoglobin 12.1, platelets 276. Sodium 133, potassium 4.6, chloride 104, bicarb 21, BUN 25, creatinine 1.04. Troponin 0 0.078 remain 3.3. She had an EKG done showing normal sinus rhythm with tachycardia and a chest x-ray showing no acute cardiopulmonary process. Patient was started on heparin drip, cardiology was consulted. Patient was evaluated by cardiology and had a cardiac catheterization done, re- stenting of proximal LAD. Patient was later transferred to the ICU for closer monitoring as there were no beds in the cardiac unit. Review of Systems REVIEW OF SYSTEMS: CONSTITUTIONAL: No fever, no malaise, no fatigue. HEENT: No headache, no neck stiffness, no blurring of vision CARDIOVASCULAR: As per HPI PULMONARY: No cough or difficulty in breathing GASTROINTESTINAL: No Abdominal pain nausea vomiting or diarrhea NEUROLOGICAL: No weakness of extremities HEMATOLOGICAL: Denies any bleeding or petechiae. GENITOURINARY: Denies any burning micturition, frequency, or urgency. MUSCULOSKELETAL/RHEUMATOLOGICAL: Denies any joint pain, swelling, or any muscle pain. ENDOCRINE: Denies polyuria polydipsia or heat or cold intolerance The rest of the 14-point review of systems is negative. Past Medical History Past Medical History: Coronary Artery Disease (CAD), CVA/TIA, Diabetes Mellitus, Eye Disorder, Hearing Disorder / Deafness, Hypertension, Liver Disease, Myocardial Infarction ([place]), Osteoarthritis ([place]), Sleep Apnea/CPAP/BIPAP, Syncope, Thyroid Disorder Additional Past Medical History / Comment(s): IDDM type II, neuropathy knees down bilaterally, ischemic cardiopmyopathy, 2009 small CVA with occasional word finding difficulty, R eye retinal bleed with some vision loss, bilateral diabetic retinopathy, fatty liver, chronic back pain, DDD< mild central canal st enosis, migraines, osteoporosis, UTI, bilateral tinnitis, BROCK no longer tolerates Cpap, benign thyroid nodules, CHI age 14, sycopal episodes as a child, sinus problems, wounds on feet Last Myocardial Infarction Date:: 07/2020 History of Any Multi-Drug Resistant Organisms: None Reported Past Surgical History: Breast Surgery, Heart Catheterization With Stent, Hysterectomy, Orthopedic Surgery, Tubal Ligation Additional Past Surgical History / Comment(s): PCI with stents in 06/2020 and 07/2020, several thyroid gland bxs, bilateral benign breast lumpectomies, D&c, bilateral feet 2 hammer toes each, R knee arthroscopy, low back injections, TTT, colonoscopies, bilateral cataract removals. Past Anesthesia/Blood Transfusion Reactions: No Reported Reaction, Motion Sickness Additional Past Anesthesia/Blood Transfusion Reaction / Comment(s): hypotension /memory problems Date of Last Stent Placement:: 2019 Past Psychological History: Anxiety, Bipolar, Depression Smoking Status: Never smoker Past Alcohol Use History: None Reported Past Drug Use History: None Reported - Past Family History Father Family Medical History: Cancer Additional Family Medical History / Comment(s): Father had lymphoma. He had LUNG, BONE, THROAT AND MOUTH CANCER Brother(s) Family Medical History: Myocardial Infarction ([place]) Additional Family Medical History / Comment(s): Muscle Disease, Rheumatic fever at 2 years old Mother Family Medical History: Cancer Additional Family Medical History / Comment(s): lung cancer- mother. She at the age of 79yrs from esophageal valencia after radiation-unable to eat. Patient states "mother had aneurysm". Medications and Allergies Home Medications Medication Instructions Recorded Confirmed Type Insulin Glargine [Lantus Vial] 60 unit SQ HS 04/26/15 07/16/21 History Levothyroxine Sodium [Synthroid] 50 mcg PO AC-BRKFST 08/21/17 07/16/21 History Cetirizine HCl [Zyrtec] 10 mg PO DAILY PRN 05/06/20 07/16/21 History Liothyronine Sodium [Cytomel] 5 mcg PO DAILY 05/06/20 07/16/21 History Sertraline HCl [Zoloft] 50 mg PO DAILY 05/06/20 07/16/21 History Calcium Carbonate [Calcium] 600 mg PO DAILY 07/15/20 07/16/21 History Docusate [Colace] 100 mg PO BID PRN 07/15/20 07/16/21 History Aspirin 81 mg PO DAILY #30 chew 08/01/20 07/16/21 Rx Ticagrelor [Brilinta] 90 mg PO BID #60 tab 08/01/20 07/16/21 Rx Cholecalciferol (Vitamin D3) 125 mcg PO DAILY 02/18/21 07/16/21 History [Vitamin D3 (5000 Iu)] INSULIN ASPART (NovoLOG) [NovoLOG See Protocol SQ AC-TID 02/18/21 07/16/21 History (formulary)] Gabapentin 300 mg PO TID 04/07/21 07/16/21 History Glimepiride [Amaryl] 4 mg PO AC-BRKFST 04/07/21 07/16/21 History INSULIN ASPART (NovoLOG) [NovoLOG 6 units SQ AC-TID 04/07/21 07/16/21 History (formulary)] ARIPiprazole [Abilify] 5 mg PO DAILY 07/16/21 07/16/21 History Diclofenac Sodium Gel [Voltaren 4 gm TOPICAL QID PRN 07/16/21 07/16/21 History Gel] Gentamicin 0.1% Cream 1 applic TOPICAL BID 07/16/21 07/16/21 History Nitroglycerin Sl Tabs [Nitrostat] 0.4 mg SL Q5M PRN 07/16/21 07/16/21 History Triamterene-Hctz 37.5-25Mg 1 cap PO DAILY 07/16/21 07/16/21 History [Dyazide 37.5-25 Capsule] carvediloL [Coreg] 6.25 mg PO AC-BID 07/16/21 07/16/21 History lisinopriL [Zestril] 2.5 mg PO DAILY 07/16/21 07/16/21 History rOPINIRole HCL [Requip] 0.5 mg PO HS 07/16/21 07/16/21 History Allergies Allergy/AdvReac Type Severity Reaction Status Date / Time Iodinated Contrast Media Allergy Swelling, Verified 07/16/21 09:06 [Iodinated Contrast Media - SHORTNESS IV Dye] OF BREATH latex Allergy Rash/Hives Verified 07/16/21 09:06 talc Allergy Rash/Hives Verified 07/16/21 09:06 adhesive tape AdvReac blisters Verified 07/16/21 09:06 amlodipine AdvReac ankle Verified 07/16/21 09:06 swelling hydralazine AdvReac Diarrhea Verified 07/16/21 09:06 metal Allergy Rash/Hives Uncoded 07/16/21 09:06 Physical Exam Vitals: Vital Signs Temp Pulse Resp BP Pulse Ox 07/16/21 12:39 74 16 126/69 97 07/16/21 12:27 79 18 182/67 97 07/16/21 10:35 98.4 F 82 20 173/90 98 07/16/21 08:44 98 F 74 19 157/59 95 07/16/21 06:55 70 20 171/68 95 07/16/21 05:53 84 20 171/68 97 07/16/21 02:56 85 20 189/81 97 07/15/21 22:59 105 H 20 165/104 94 L 07/15/21 21:33 99.3 F 100 21 139/60 95 Intake and Output 07/15/21 07/16/21 07/16/21 22:59 06:59 14:59 Intake Total 276.525 Balance 276.525 Intake: IV 150 Intake, IV Titration 126.525 Amount Heparin Sod,Pork in 0.45% 126.525 NaCl 25,000 unit In 0.45 % NaCl 1 250ml.bag @ 7.35 UNITS/KG/HR 10.002 mls/ hr IV .Q24H [facility] Rx#: [id number] Other: Weight 136.078 kg PHYSICAL EXAMINATION: GENERAL: Comfortably lying up in the bed appears to be no acute distress. Obese HEENT: Pupils are round and equally reacting to light. EOMI. No scleral icterus. No conjunctival pallor. CARDIOVASCULAR: S1 and S2 present. No murmurs, rubs, or gallops. PULMONARY: Bilateral breath sounds positive. Diminshed at bases.No wheezing, mild crackles at bases. ABDOMEN: Soft,non -tender, normal bowel sounds. No guarding or rigidity. MUSCULOSKELETAL: No joint swelling or deformity. EXTREMITIES: No edema NEUROLOGICAL: Gross neurological examination did not reveal any focal deficits. SKIN:No rash Results CBC & Chem 7: 07/15/21 22:31 07/15/21 22:31 Labs: Abnormal Lab Results - Last 24 Hours (Table) 07/15/21 07/15/21 07/15/21 Range/Units 22:31 22:31 22:31 WBC 13.1 H (3.8-10.6) k/uL Neutrophils # 10.5 H (1.3-7.7) k/uL APTT 21.8 L (22.0-30.0) sec Sodium 133 L (137-145) mmol/L Carbon Dioxide 21 L (22-30) mmol/L BUN 25 H (7-17) mg/dL Glucose 403 H (74-99) mg/dL POC Glucose (mg/dL) (75-99) mg/dL Troponin I (0.000-0.034) ng/mL Total Protein 6.0 L (6.3-8.2) g/dL Albumin 3.3 L (3.5-5.0) g/dL Lipase 16 L (23-300) U/L 07/15/21 07/16/21 07/16/21 Range/Units 22:31 01:52 02:23 WBC (3.8-10.6) k/uL Neutrophils # (1.3-7.7) k/uL APTT (22.0-30.0) sec Sodium (137-145) mmol/L Carbon Dioxide (22-30) mmol/L BUN (7-17) mg/dL Glucose (74-99) mg/dL POC Glucose (mg/dL) 368 H (75-99) mg/dL Troponin I 0.078 H* 1.130 H* (0.000-0.034) ng/mL Total Protein (6.3-8.2) g/dL Albumin (3.5-5.0) g/dL Lipase (23-300) U/L 07/16/21 07/16/21 Range/Units 05:37 10:23 WBC (3.8-10.6) k/uL Neutrophils # (1.3-7.7) k/uL APTT 31.5 H (22.0-30.0) sec Sodium (137-145) mmol/L Carbon Dioxide (22-30) mmol/L BUN (7-17) mg/dL Glucose (74-99) mg/dL POC Glucose (mg/dL) (75-99) mg/dL Troponin I 1.460 H* (0.000-0.034) ng/mL Total Protein (6.3-8.2) g/dL Albumin (3.5-5.0) g/dL Lipase (23-300) U/L Assessment and Plan Assessment: ASSESSMENT NSTEMI status post stenting of LAD History of coronary artery disease status post stenting Hypertension Diabetes mellitus Diabetic retinopathy Hypertension Multiple joint osteoarthritis Obstructive sleep apnea Ischemic cardiomyopathy History of CVA/TIA Obstructive sleep apnea noncompliant with CPAP Thyroid disorder Migraine headaches Morbid obesity with BMI of 48.4 Mild protein calorie malnutrition Osteoporosis Bilateral tinnitus Bilateral toe wounds Diabetic neuropathy Bilateral hammertoes History of right knee arthroplasty History of chronic low back pain History of hysterectomy PLAN: Patient is status post re- stenting of LAD this afternoon by cardiology. She has been started on aspirin and beta-yadira. Patient's blood sugars have been running high, will increase of the dose of Levemir to 25 units and increase the sliding scale of insulin. Patient has been restarted on home medications. Overall prognosis is guarded due to chronic multiple comorbid medical conditi ons. Further recommendations depending on the progress of the patient
[2021-07-17 06:26] LABS: Glucose,Whole Blood 378 mg/dL (75-99)
[2021-07-17] MEDS: INSULIN ASPART (NovoLOG) 100 UNIT/ML VIAL SQ SCH ×4 (06:27→20:27)
[2021-07-17] MEDS: carvediloL 12.5 MG TAB PO SCH ×2 (06:28→17:01)
[2021-07-17] MEDS: LEVOTHYROXINE 50 MCG TAB PO SCH (06:28)
[2021-07-17] MEDS: CHOLECALCIFEROL 25 MCG (1000 IU) TABLET PO SCH (07:52)
[2021-07-17] MEDS: ASPIRIN 81 MG PO SCH (07:52)
[2021-07-17] MEDS: CALCIUM CARBONATE 500 MG CHEWABLE PO SCH (07:52)
[2021-07-17] MEDS: SODIUM CHLORIDE 0.9% 1,000 ML IV SCH (07:52)
[2021-07-17] MEDS: TRIAMTERENE-HCTZ 37.5-25MG 1 EACH CAP PO SCH (07:53)
[2021-07-17] MEDS: ARIPiprazole 5 MG TAB PO SCH (07:53)
[2021-07-17] MEDS: LIOTHYRONINE SODIUM 5 MCG TAB PO SCH (07:53)
[2021-07-17] MEDS: VALSARTAN 160 MG TAB PO SCH ×2 (07:53→20:28)
[2021-07-17] MEDS: SERTRALINE 50 MG TAB PO SCH (07:53)
[2021-07-17 07:58] LABS: Basophils % (A) 0 %; Eosinophils % (A) 0 %; HCT 33.3 % (34.0-46.0); HGB 10.9 gm/dL (11.4-16.0); Lymphocytes % (A) 8 %; MCHC 32.6 g/dL (31.0-37.0); MCV 85.9 fL (80.0-100.0); Mean Platelet Volume 8.2; Monocytes # (A) 0.7 k/uL (0-1.0); Monocytes % (A) 5 %; Neutrophils # (A) 11.4 k/uL (1.3-7.7); Neutrophils % (A) 86 %; Platelet Count 296 k/uL (150-450); RBC 3.88 m/uL (3.80-5.40); WBC 13.2 k/uL (3.8-10.6)
[2021-07-17 08:15] LABS: Calcium 9.8 mg/dL (8.4-10.2); Magnesium 1.8 mg/dL (1.6-2.3); Potassium 4.5 mmol/L (3.5-5.1)
[2021-07-17] MEDS ORDERED: ASPIRIN 325 MG TAB PO SCH (09:00)
[2021-07-17 11:33] LABS: Glucose,Whole Blood 292 mg/dL (75-99)
--- NOTE | 2021-07-17 11:47 | P.PN ---
Subjective Progress Note Date: 07/17/21 The patient is a 71-year-old female who is currently admitted with a non-ST elevated myocardial infarction. The patient underwent coronary angiogram with Dr. CATHI Lynn yesterday where she received a stent to her proximal LAD. Previous stenting appears patent. Additional 50% lesion noted in the RCA. Echocardiogram is currently pending. She states she's been doing relatively well since her procedure yesterday. She denies any chest pain or chest pressure. She is breathing well and able to lie comfortably flat in bed. No heart racing or fluttering. No dizziness or lightheadedness when ambulating to the restroom. She does have pain in her lower extremity and is following with a vascular surgeon in the wound clinic. She does complain of urinary frequency ambulation may have a urinary tract infection GENERAL: Well-appearing, well-nourished and in no acute distress. NECK: Supple without JVD or thyromegaly. LUNGS: Breath sounds clear to auscultation bilaterally. Respiration equal and unlabored. No wheezes, rales or rhonchi. HEART: Regular rate and rhythm without murmurs, rubs or gallops. S1 and S2 heard. EXTREMITIES: Normal range of motion. Mild generalized edema. No clubbing or cyanosis. No palpable lower extremity peripheral pulses. PROCEDURE SITE: No bruising or hematoma VITALS: Temp 98F, pulse 73, respiratory rate 16, blood pressure 159/77, SpO2 97% on ro om air TELEMETRY: Sinus bradycardia in the 50s LABS: WBC 13.2, hemoglobin 10.9, hematocrit 33.3, platelet 296, sodium 136, potassium 4.5, BUN 31, creatinine 1.04, many medium 1.8 IMPRESSION: Non-ST elevated myocardial infarction, stenting to proximal LAD Coronary artery disease, previous stents patent Diabetes mellitus, poorly controlled Obesity, BMI 48 Peripheral vascular disease, following with vascular surgery Congestive heart failure, elevated BNP PLAN: Continue dual antiplatelet therapy Primary team to manage UTI and lower extremity wounds Encourage ambulation Echocardiogram pending The patient has been seen and evaluated. Plan of care has been reviewed and agreed upon by Dr Rivera. Objective - Vital Signs Vital signs: Vital Signs Temp 98 F 07/17/21 11:22 Pulse 73 07/17/21 11:22 Resp 16 07/17/21 11:22 BP 159/77 07/17/21 11:22 Pulse Ox 97 07/17/21 11:22 Intake & Output 07/16/21 07/17/21 07/17/21 18:59 06:59 18:59 Intake Total 276.525 Output Total 780 Balance 276.525 -780 Weight 136.1 kg Intake: IV 150 Intake, IV Titration 126.525 Amount Heparin Sod,Pork in 0.45% 126.525 NaCl 25,000 unit In 0.45 % NaCl 1 250ml.bag @ 7.35 UNITS/KG/HR 10.002 mls/ hr IV .Q24H [facility] Rx#: [id number] Output: Urine 780 Other: Voiding Method Bedpan Bedpan # Voids 2 - Labs CBC & Chem 7: 07/17/21 07:36 07/17/21 07:36 Labs: Abnormal Lab Results - Last 24 Hours (Table) 07/16/21 07/16/21 07/17/21 Range/Units 14:43 20:44 06:24 WBC (3.8-10.6) k/uL Hgb (11.4-16.0) gm/dL Hct (34.0-46.0) % Neutrophils # (1.3-7.7) k/uL Sodium (137-145) mmol/L Carbon Dioxide (22-30) mmol/L BUN (7-17) mg/dL Glucose (74-99) mg/dL POC Glucose (mg/dL) 254 H 370 H 378 H (75-99) mg/dL 07/17/21 07/17/21 07/17/21 Range/Units 07:36 07:36 11:32 WBC 13.2 H (3.8-10.6) k/uL Hgb 10.9 L (11.4-16.0) gm/dL Hct 33.3 L (34.0-46.0) % Neutrophils # 11.4 H (1.3-7.7) k/uL Sodium 136 L (137-145) mmol/L Carbon Dioxide 21 L (22-30) mmol/L BUN 31 H (7-17) mg/dL Glucose 369 H (74-99) mg/dL POC Glucose (mg/dL) 292 H (75-99) mg/dL
[2021-07-17 12:42] LABS: Chol/HDL Ratio 3.88; LDL Cholesterol,Calculated 106.2 mg/dL (0.0-131.0); VLDL Calculation 17.8 mg/dL (5.00-40.00)
[2021-07-17 16:20] LABS: Glucose,Whole Blood 255 mg/dL (75-99)
[2021-07-17 18:07] LABS: Appearance,Urine Clear (Clear); Bilirubin,Urine Negative (Negative); Blood,Urine Negative (Negative); Color,Urine Light Yellow; Glucose,Urine (UA) 1+ (Negative); Hyaline Casts,Urine 7 /lpf (0-2); Ketones,Urine Negative (Negative); Leukocyte Esterase,Urine Moderate (Negative); Mucus,Urine Rare /hpf; Nitrite,Urine Negative (Negative); PH, Urine 5.5 (5.0-8.0); Protein,Urine Negative (Negative); RBC,Urine 1 /hpf (0-5); Specific Gravity,Urine 1.011 (1.001-1.035); Squamous Epithelial Cell,Urine 3 /hpf (0-4); Urobilinogen,Urine <2.0 mg/dL (<2.0); WBC,Urine 5 /hpf (0-5)
[2021-07-17 20:02] LABS: Glucose,Whole Blood 312 mg/dL (75-99)
[2021-07-17] MEDS: INSULIN DETEMIR (LEVEMIR) 100 UNIT/ML SYR SQ SCH (20:27)
[2021-07-17] MEDS: ATORVASTATIN 80 MG TAB PO SCH (20:28)
--- NOTE | 2021-07-18 00:34 | P.PN ---
Subjective Progress Note Date: 07/17/21 Principal diagnosis: NSTEMI Ms. Daniels is a 71-year-old female with a past medical history of coronary artery disease, CVA/TIA, diabetes mellitus, hearing disorder, hypertension, myocardial infarction, osteoarthritis, obstructive sleep apnea, thyroid disorder, ischemic cardiomyopathy, diabetic retinopathy coming into the hospital with a chief complaint of chest pain. Patient states that she has been having chest pain that has been going on for about 1 week and worse at night and evening hours. Patient states that she feels like pressure in her substernal area with no radiation. She has mild difficulty in breathing at baseline and no worsening of her symptoms. Patient follows with Dr. Be as outpatient and is scheduled to undergo aortogram and stress testing in few weeks. Patient denied having any fevers chills or rigors. No cough or difficulty in breathing associated with it. No abdominal pain, nausea vomiting or diarrhea. No dysuria or hematuria. Patient denied having any headaches, neck pain, blurring of vision. In the ER at the time of admission patient's vitals temperature 99.3, heart rate 100, respiratory 21, blood pressure 139/60 saturating at 95% on room air. Patient had labs done showing white count of 13.1, hemoglobin 12.1, platelets 276. Sodium 133, potassium 4.6, chloride 104, bicarb 21, BUN 25, creatinine 1.04. Troponin 0 0.078 remain 3.3. She had an EKG done showing normal sinus rhythm with tachycardia and a chest x-ray showing no acute cardiopulmonary process. Patient was started on heparin drip, cardiology was consulted. Patient was evaluated by cardiology and had a cardiac catheterization done, re- stenting of proximal LAD. Patient was later transferred to the ICU for closer monitoring as there were no beds in the cardiac unit. She is eventually transferred to the cardiac unit. On 07/17/2021 -patient is seen and examined at the bedside. No acute events reported by nursing staff overnight. Patient is comfortably sleeping in bed she has no active complaints. She denies having any chest discomfort, difficulty in breathing or cough. She denies having any abdominal pain nausea vomiting or diarrhea. No dysuria or hematuria. Patient's vitals have been reviewed temperature 98, heart rate 68, respiratory 16, blood pressure 166/83, saturating at 98% on room air. On reviewing the patient's labs white count of 13.2, hemoglobin 10.9, platelets 296. Sodium 136, potassium 4.5, chloride 107, bicarb 21, BUN 31, creatinine 1.04. Patient's medications have been reviewed. Objective - Vital Signs Vital signs: Vital Signs Temp 98 F 07/17/21 11:22 Pulse 73 07/17/21 12:39 Resp 16 07/17/21 12:39 BP 159/77 07/17/21 11:22 Pulse Ox 97 07/17/21 11:22 Intake & Output 07/16/21 07/17/21 07/17/21 18:59 06:59 18:59 Intake Total 276.525 Output Total 780 Balance 276.525 -780 Weight 136.1 kg Intake: IV 150 Intake, IV Titration 126.525 Amount Heparin Sod,Pork in 0.45% 126.525 NaCl 25,000 unit In 0.45 % NaCl 1 250ml.bag @ 7.35 UNITS/KG/HR 10.002 mls/ hr IV .Q24H [facility] Rx#: [id number] Output: Urine 780 Other: Voiding Method Bedpan Bedpan # Voids 2 1 - Exam PHYSICAL EXAMINATION: GENERAL: Comfortably lying up in the bed appears to be no acute distress. Ob gregoria HEENT: Pupils are round and equally reacting to light. EOMI. No scleral icterus. No conjunctival pallor. CARDIOVASCULAR: S1 and S2 present. No murmurs, rubs, or gallops. PULMONARY: Bilateral breath sounds positive. Diminshed at bases.No wheezing, mild crackles at bases. ABDOMEN: Soft,non -tender, normal bowel sounds. No guarding or rigidity. MUSCULOSKELETAL: No joint swelling or deformity. EXTREMITIES: No edema. Examination of the left second toe showed redness, positive for tenderness. NEUROLOGICAL: Gross neurological examination did not reveal any focal deficits. SKIN:No rash - Labs CBC & Chem 7: 07/17/21 07:36 07/17/21 07:36 Labs: Abnormal Lab Results - Last 24 Hours (Table) 07/16/21 07/16/21 07/17/21 Range/Units 14:43 20:44 06:24 WBC (3.8-10.6) k/uL Hgb (11.4-16.0) gm/dL Hct (34.0-46.0) % Neutrophils # (1.3-7.7) k/uL Sodium (137-145) mmol/L Carbon Dioxide (22-30) mmol/L BUN (7-17) mg/dL Glucose (74-99) mg/dL POC Glucose (mg/dL) 254 H 370 H 378 H (75-99) mg/dL 07/17/21 07/17/21 07/17/21 Range/Units 07:36 07:36 11:32 WBC 13.2 H (3.8-10.6) k/uL Hgb 10.9 L (11.4-16.0) gm/dL Hct 33.3 L (34.0-46.0) % Neutrophils # 11.4 H (1.3-7.7) k/uL Sodium 136 L (137-145) mmol/L Carbon Dioxide 21 L (22-30) mmol/L BUN 31 H (7-17) mg/dL Glucose 369 H (74-99) mg/dL POC Glucose (mg/dL) 292 H (75-99) mg/dL Assessment and Plan Assessment: ASSESSMENT NSTEMI status post stenting of LAD History of coronary artery disease status post stenting Hypertension Diabetes mellitus Diabetic retinopathy Hypertension Multiple joint osteoarthritis Obstructive sleep apnea Ischemic cardiomyopathy History of CVA/TIA Obstructive sleep apnea noncompliant with CPAP Thyroid disorder Migraine headaches Morbid obesity with BMI of 48.4 Mild protein calorie malnutrition Osteoporosis Bilateral tinnitus Bilateral toe wounds Diabetic neuropathy Bilateral hammertoes History of right knee arthroplasty History of chronic low back pain History of hysterectomy PLAN: Patient is status post re- stenting of LAD this afternoon by cardiology. She has been started on aspirin and beta-yadira. Patient's blood sugars have been running high, will increase of the dose of Levemir and increase the sliding scale of insulin. Patient complaining of urinary symptoms, urine analysis ordered. As the patient has chronic left second toe infection, infectious disease Dr. Peck has been consulted. Wound care also consulted. Overall prognosis is guarded due to chronic multiple comorbid medical conditions. Further recommendations depending on the progress of the patient
[2021-07-18 06:04] LABS: Glucose,Whole Blood 75 mg/dL (75-99)
[2021-07-18] MEDS: INSULIN ASPART (NovoLOG) 100 UNIT/ML VIAL SQ SCH ×4 (06:17→20:32)
[2021-07-18] MEDS: LEVOTHYROXINE 50 MCG TAB PO SCH (06:22)
[2021-07-18] MEDS: carvediloL 12.5 MG TAB PO SCH ×2 (06:22→18:15)
[2021-07-18] MEDS ORDERED: VANCOMYCIN IV PER PHARMACY 1 EACH MISC MISCELLANE PRN (07:18)
--- NOTE | 2021-07-18 07:28 | P.CONS ---
History of Present Illness - Reason for Consult Consult date: 07/17/21 Right foot wound Requesting physician: Kenia Juárez - Chief Complaint chest pain and non healing wound to left 2nd toe x weeks - History of Present Illness History of present illness : Patient is a 71-year-old female presented to the hospital 2 days ago for evaluation of chest pain symptom has been going on for about a week with associated shortness of breath no diaphoresis patient did have elevated troponin has been evaluated by cardiology and is status post cardiac cath status post PTCA and stenting of the proximal LAD stent the patient also have a wound on the dorsal aspect of the left second toe which has been going on for couple of weeks started with a trauma and has been under the care at [facility] with multiple modalities without any healing for which infectious disease was consulted for further management and in for antibi otic therapy patient denies having any fever or any chills patient did have mild have a leaking pain intensity 3-4 out of 10 especially when he does test or the time of dressing changes there is no foul-smelling drainage and the patient has not been on antibiotics in the recent past, patient did have an arterial study done on the leg with evidence of severe peripheral arterial disease in the patie nt mention he was scheduled to go for bone scan this week to rule out bone infection Review of system: CONSTITUTIONAL: Positive for weakness however denies high-grade fever. EYES: No complaint. ENT: No complaint. RESPIRATORY: As per history of present illness. CARDIOVASCULAR: As per history of present illness. GENITOURINARY: No complaint. GASTROINTESTINAL: No complaint. MUSCULOSKELETAL: As per history of present illness. INTEGUMENTARY: No complaint. PSYCHOLOGIC: No complaint. ENDOCRINE: No complaint. NEUROLOGIC: No complaint. Past medical history : Reviewed, documented below Past surgical history : Reviewed, documented below Social history: Reviewed, documented below Medications: Reviewed, as documented below GENERAL DESCRIPTION: Elderly female lying in bed, no distress. No tachypnea or accessory muscle of respiration use. HEENT: Shows Pallor , no scleral icterus. Oral mucous membrane is dry. NECK: Trachea central, no thyromegaly. LUNGS: Unlabored breathing. Clear to auscultation anteriorly. No wheeze or crackle. HEART: S1, S2, regular rate and rhythm. ABDOMEN: Soft, no tenderness , guarding or rigidity EXTREMITIES: No edema of feet. Left second toe dorsal wound with swelling minimal drainage cultures were obtained SKIN: No rash, no masses palpable. NEUROLOGICAL: The patient is awake, alert, oriented x3, mood and affect normal. LABS AND RADIOLOGY: Reviewed results see below Assessment : Patient with a chronic nonhealing wound on the dorsum aspect of the left second toe started as a trauma which has not healed over the last few weeks in this patient who did have significant PAD concern for underlying osteomyelitis Excluded in view of the depth of this wound and chronicity and will need to cover for the gram-positive skin page to the likely pathogen Plan: 1-we will obtain x-rays of the left second toe to rule out any cortical destruction 2-check a CRP and sed rate 3-vancomycin pharmacy to dose her with a target trough of 15 while watching her kidney function and Vanco trough closely. We will follow on clinical condition and cultures to further adjust medication if needed Thank you for this consultation we will follow the patient along with you Review of Systems Positive point has been mentioned in the HPI rest of the systems are negative Past Medical History Past Medical History: Coronary Artery Disease (CAD), CVA/TIA, Diabetes Mellitus, Eye Disorder, Hearing Disorder / Deafness, Hypertension, Liver Disease, Myocardial Infarction ([place]), Osteoarthritis (OA), Sleep Apnea/CPAP/BIPAP, Syncope, Thyroid Disorder Additional Past Medical History / Comment(s): IDDM type II, neuropathy knees down bilaterally, ischemic cardiopmyopathy, 2009 small CVA with occasional word finding difficulty, R eye retinal bleed with some vision loss, bilateral diab etic retinopathy, fatty liver, chronic back pain, DDD< mild central canal stenosis, migraines, osteoporosis, UTI, bilateral tinnitis, BROCK no longer tolerates Cpap, benign thyroid nodules, CHI age 14, sycopal episodes as a child, sinus problems, wounds on feet Last Myocardial Infarction Date:: 07/2020 History of Any Multi-Drug Resistant Organisms: None Reported Past Surgical History: Breast Surgery, Heart Catheterization With Stent, Hysterectomy, Orthopedic Surgery, Tubal Ligation Additional Past Surgical History / Comment(s): PCI with stents in 06/2020 and 07/2020, several thyroid gland bxs, bilateral benign breast lumpectomies, D&c, bilateral feet 2 hammer toes each, R knee arthroscopy, low back injections, TTT, colonoscopies, bilateral cataract removals. Past Anesthesia/Blood Transfusion Reactions: No Reported Reaction, Motion Sickness Additional Past Anesthesia/Blood Transfusion Reaction / Comm: hypotension/memory problems Date of Last Stent Placement:: 2019 Past Psychological History: Anxiety, Bipolar, Depression Smoking Status: Never smoker Past Alcohol Use History: None Reported Past Drug Use History: None Reported - Past Family History Father Family Medical History: Cancer Additional Family Medical History / Comment(s): Father had lymphoma. He had LUNG, BONE, THROAT AND MOUTH CANCER Brother(s) Family Medical History: Myocardial Infarction ([place]) Additional Family Medical History / Comment(s): Muscle Disease, Rheumatic fever at 2 years old Mother Family Medical History: Cancer Additional Family Medical History / Comment(s): lung cancer- mother. She at the age of 79yrs from esophageal valencia after radiation-unable to eat. Patient states "mother had aneurysm". Medications and Allergies Home Medications Medication Instructions Recorded Confirmed Type Insulin Glargine [Lantus Vial] 60 unit SQ HS 04/26/15 07/16/21 History Levothyroxine Sodium [Synthroid] 50 mcg PO AC-BRKFST 08/21/17 07/16/21 History Cetirizine HCl [Zyrtec] 10 mg PO DAILY PRN 05/06/20 07/16/21 History Liothyronine Sodium [Cytomel] 5 mcg PO DAILY 05/06/20 07/16/21 History Sertraline HCl [Zoloft] 50 mg PO DAILY 05/06/20 07/16/21 History Calcium Carbonate [Calcium] 600 mg PO DAILY 07/15/20 07/16/21 History Docusate [Colace] 100 mg PO BID PRN 07/15/20 07/16/21 History Aspirin 81 mg PO DAILY #30 chew 08/01/20 07/16/21 Rx Ticagrelor [Brilinta] 90 mg PO BID #60 tab 08/01/20 07/16/21 Rx Cholecalciferol (Vitamin D3) 125 mcg PO DAILY 02/18/21 07/16/21 History [Vitamin D3 (5000 Iu)] INSULIN ASPART (NovoLOG) [NovoLOG See Protocol SQ AC-TID 02/18/21 07/16/21 History (formulary)] Gabapentin 300 mg PO TID 04/07/21 07/16/21 History Glimepiride [Amaryl] 4 mg PO AC-BRKFST 04/07/21 07/16/21 History INSULIN ASPART (NovoLOG) [NovoLOG 6 units SQ AC-TID 04/07/21 07/16/21 History (formulary)] ARIPiprazole [Abilify] 5 mg PO DAILY 07/16/21 07/16/21 History Diclofenac Sodium Gel [Voltaren 4 gm TOPICAL QID PRN 07/16/21 07/16/21 History Gel] Gentamicin 0.1% Cream 1 applic TOPICAL BID 07/16/21 07/16/21 History Nitroglycerin Sl Tabs [Nitrostat] 0.4 mg SL Q5M PRN 07/16/21 07/16/21 History Triamterene-Hctz 37.5-25Mg 1 cap PO DAILY 07/16/21 07/16/21 History [Dyazide 37.5-25 Capsule] carvediloL [Coreg] 6.25 mg PO AC-BID 07/16/21 07/16/21 History lisinopriL [Zestril] 2.5 mg PO DAILY 07/16/21 07/16/21 History rOPINIRole HCL [Requip] 0.5 mg PO HS 07/16/21 07/16/21 History Allergies Allergy/AdvReac Type Severity Reaction Status Date / Time Iodinated Contrast Media Allergy Swelling, Verified 07/16/21 09:06 [Iodinated Contrast Media - SHORTNESS IV Dye] OF BREATH latex Allergy Rash/Hives Verified 07/16/21 09:06 talc Allergy Rash/Hives Verified 07/16/21 09:06 adhesive tape AdvReac blisters Verified 07/16/21 09:06 amlodipine AdvReac ankle Verified 07/16/21 09:06 swelling hydralazine AdvReac Diarrhea Verified 07/16/21 09:06 metal Allergy Rash/Hives Uncoded 07/16/21 09:06 Physical Exam Vitals: Vital Signs Temp Pulse Pulse Resp BP BP BP 07/17/21 12:39 73 16 07/17/21 11:22 98 F 73 16 159/77 07/17/21 07:25 71 16 07/17/21 07:24 97.8 F 71 16 135/65 07/17/21 03:48 97.9 F 16 165/66 07/17/21 02:00 18 07/17/21 00:53 66 150/52 07/16/21 23:43 175/83 07/16/21 23:15 98.2 F 80 18 193/75 07/16/21 21:05 73 206/68 07/16/21 20:00 18 07/16/21 19:30 98.5 F 82 18 205/90 07/16/21 18:54 98 F 74 16 160/78 07/16/21 16:45 76 12 184/68 07/16/21 16:30 73 12 183/72 07/16/21 16:15 77 12 179/63 07/16/21 16:00 98.3 F 75 13 203/83 07/16/21 15:45 74 12 193/89 07/16/21 15:30 97.7 F 86 16 169/80 07/16/21 15:15 80 18 205/91 07/16/21 15:00 72 12 210/92 07/16/21 14:45 81 12 07/16/21 14:44 74 Pulse Ox 07/17/21 12:39 07/17/21 11:22 97 07/17/21 07:25 07/17/21 07:24 98 07/17/21 03:48 97 07/17/21 02:00 07/17/21 00:53 07/16/21 23:43 07/16/21 23:15 97 07/16/21 21:05 07/16/21 20:00 07/16/21 19:30 95 07/16/21 18:54 95 07/16/21 16:45 07/16/21 16:30 07/16/21 16:15 07/16/21 16:00 95 07/16/21 15:45 95 07/16/21 15:30 94 L 07/16/21 15:15 93 L 07/16/21 15:00 94 L 07/16/21 14:45 95 07/16/21 14:44 Intake and Output 07/16/21 07/17/21 07/17/21 22:59 06:59 14:59 Output Total 300 480 Balance -300 -480 Output: Urine 300 480 Other: Voiding Method Bedpan Bedpan Bedpan # Voids 1 2 1 Weight 136.1 kg GENERAL DESCRIPTION: Elderly female lying in bed, no distress. No tachypnea or accessory muscle of respiration use. HEENT: Shows Pallor , no scleral icterus. Oral mucous membrane is dry. No pharyngeal erythema or thrush NECK: Trachea central, no thyromegaly. LUNGS: Unlabored breathing. Clear to auscultation anteriorly. No wheeze or crackle. HEART: S1, S2, regular rate and rhythm. No loud murmur ABDOMEN: Soft, no tenderness , guarding or rigidity, no organomegaly EXTREMITIES: No edema of feet. SKIN: No rash, no masses palpable. NEUROLOGICAL: The patient is awake, alert, oriented x3, mood and affect normal. Results CBC & Chem 7: 07/17/21 07:36 07/17/21 07:36 Labs: Abnormal Lab Results - Last 24 Hours (Table) 07/16/21 07/16/21 07/17/21 Range/Units 14:43 20:44 06:24 WBC (3.8-10.6) k/uL Hgb (11.4-16.0) gm/dL Hct (34.0-46.0) % Neutrophils # (1.3-7.7) k/uL Sodium (137-145) mmol/L Carbon Dioxide (22-30) mmol/L BUN (7-17) mg/dL Glucose (74-99) mg/dL POC Glucose (mg/dL) 254 H 370 H 378 H (75-99) mg/dL 07/17/21 07/17/21 07/17/21 Range/Units 07:36 07:36 11:32 WBC 13.2 H (3.8-10.6) k/uL Hgb 10.9 L (11.4-16.0) gm/dL Hct 33.3 L (34.0-46.0) % Neutrophils # 11.4 H (1.3-7.7) k/uL Sodium 136 L (137-145) mmol/L Carbon Dioxide 21 L (22-30) mmol/L BUN 31 H (7-17) mg/dL Glucose 369 H (74-99) mg/dL POC Glucose (mg/dL) 292 H (75-99) mg/dL
--- NOTE | 2021-07-18 08:00 | ECHOF ---
Referral Reason:Ant NSTEMi [place] LV FX MEASUREMENTS -------- HEIGHT: 167.6 cm WEIGHT: 136.1 kg BP: RVIDd: 2.6 cm (< 3.3) IVSd: 1.7 cm (0.6 - 1.1) LVIDd: 4.4 cm (3.9 - 5.3) LVPWd: 1.5 cm (0.6 - 1.1) IVSs: 1.9 cm LVIDs: 3.5 cm LVPWs: 1.7 cm LAESV Index (A-L): 19.56 ml/m Ao Diam: 3.3 cm (2.0 - 3.7) AV Cusp: 1.7 cm (1.5 - 2.6) LA Diam: 3.6 cm (2.7 - 3.8) MV EXCURSION: 12.148 mm (> 18.000) MV EF SLOPE: 54 mm/s (70 - 150) EPSS: 1.5 cm MV E Rocky: 0.95 m/s MV DecT: 303 ms MV A Rocky: 1.23 m/s MV E/A Ratio: 0.77 RAP: 5.00 mmHg RVSP: 15.28 mmHg FINDINGS -------- This was a technically difficult study with suboptimal views. The left ventricular size is normal. There is moderate concentric left ventricular hypertrophy. O verall left ventricular systolic function is mild-moderately impaired with, an EF between 40 - 45 %. Normal LAP Grade 1 Diastolic Dysfunction. Mid anteroseptal LV wall motion is hypokinetic. Apic al anterior LV wall motion is hypokinetic. Apical septum LV wall motion is hypokinetic. The right ventricle is normal in size. The left atrial size is normal. Normal LA size by volume 22+/-6 ml/m2. The right atrial size is normal. Lumason used The aortic valve is trileaflet and appears structurally normal. The mitral valve is normal. Mild mitral regurgitation is present. The tricuspid valve appears structurally normal. Mild tricuspid regurgitation present. Right vent ricular systolic pressure is normal at < 35 mmHg. There is no pulmonic regurgitation present. The aortic root size is normal. IVC Not well visulized. There is no pericardial effusion. CONCLUSIONS -------- 1. The left ventricular size is normal. 2. There is moderate concentric left ventricular hypertrophy. 3. Overall left ventricular systolic function is mild-moderately impaired with, an EF between 40 - 45 %. 4. Normal LAP Grade 1 Diastolic Dysfunction. 5. Mild mitral regurgitation is present. 6. Mild tricuspid regurgitation present. 7. There is no pericardial effusion. BOW MAKING MACHINE OPERATOR: Chayo Maddox RDCS
[2021-07-18] MEDS: TRIAMTERENE-HCTZ 37.5-25MG 1 EACH CAP PO SCH (08:12)
[2021-07-18] MEDS: ASPIRIN 81 MG PO SCH (08:13)
[2021-07-18] MEDS: CHOLECALCIFEROL 25 MCG (1000 IU) TABLET PO SCH (08:13)
[2021-07-18] MEDS: VALSARTAN 160 MG TAB PO SCH ×2 (08:14→20:32)
[2021-07-18] MEDS: ARIPiprazole 5 MG TAB PO SCH (08:14)
[2021-07-18] MEDS: CALCIUM CARBONATE 500 MG CHEWABLE PO SCH (08:14)
[2021-07-18] MEDS: LIOTHYRONINE SODIUM 5 MCG TAB PO SCH (08:14)
[2021-07-18] MEDS: SERTRALINE 50 MG TAB PO SCH (08:14)
[2021-07-18] MEDS: VANCOMYCIN 2,000 MG in SODIUM CHLORIDE 0.9% 500 ML 500 ML IVPB SCH (08:42)
--- NOTE | 2021-07-18 09:15 | XR ---
EXAMINATION TYPE: XR foot complete LT DATE OF EXAM: 07/18/2021 COMPARISON: 03/15/2021 HISTORY: Pain TECHNIQUE: Three views are submitted. FINDINGS: Diffuse osteopenia with remote trauma involving the fifth metatarsal and middle phalanx fourth digit. Arthropathy of the first MTP. No erosive changes. Calcaneal spurs are seen. No acute fracture. IMPRESSION: 1. 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
[2021-07-18 11:40] LABS: Glucose,Whole Blood 216 mg/dL (75-99)
--- NOTE | 2021-07-18 13:58 | P.PN ---
Subjective Progress Note Date: 07/18/21 HISTORY OF PRESENT ILLNESS: The patient is a 71-year-old female with past medical history of coronary artery disease status post stenting in June and July 2020, obesity, diabetes, and hypertension who follows in the office with Dr. Acevedo. Cardiology was consulted after the patient presented to the emergency room with chest discomfort occurring over the last 2 days. She states it was a pressure-like sensation and was occurring in the evening hours. She states it was not associated with any medication or oral intake. She states that this it did not radiate to her jaw or her left arm. She does have chronic shortness of breath, which she states is unchanged. The patient has been following with a vascular surgeon for abnormal BALTAZAR. She states she is scheduled to undergo aortogram and stress testing within the next several weeks. We discussed EKG abnormality along with elevated troponins in detail with the patient. We recommend proceeding with coronary angiogram. DIAGNOSTICS: EKG shows sinus mechanism with ST depression in lead 1 and aVL Chest x-ray shows no active cardiopulmonary disease Laboratory data: WBC 13.1, hemoglobin 12.1, hematocrit 37.8, platelet 273, sodium 133, potassium 4.6, BUN 25, creatinine 1.04, AST 24, ALT 16, BNP 1930, troponin 0.07, 1.13, 1.14 Vital signs: Temp 98F, pulse rate 74, respiratory rate 19, blood pressure 157/59, SpO2 95% on room air 07/17/2021 She states she's been doing relatively well since her procedure yesterday. She denies any chest pain or chest pressure. She is breathing well and able to lie comfortably flat in bed. No heart racing or fluttering. No dizziness or lightheadedness when ambulating to the restroom. She does have pain in her lower extremity and is following with a vascular surgeon in the wound clinic. She does complain of urinary frequency ambulation may have a urinary tract infection 07/18/2021 Patient examined this morning at the bedside. Patient is status post PCI to proximal LAD which was a instent restenosis. EF 40-45%. Patient denies chest pain or pressure. She denies shortness of breath. Vital signs PHYSICAL EXAM: VITAL SIGNS: Reviewed. GENERAL: Well-developed in no acute distress. NECK: Supple. No JVD or thyromegaly LUNGS: Respirations even and unlabored. Lungs essentially clear to auscultation bilaterally. HEART: Regular rate and rhythm. S1 and S2 heard. EXTREMITIES: Normal range of motion. No clubbing or cyanosis. Peripheral pulses intact. Trace bilateral lower extremity edema. Right groin cath site so ft with no hematoma noted. ASSESSMENT: Non-STEMI, s/p PCI to LAD Possible urinary tract infection Nonhealing wound of left second toe Coronary artery disease with previous PCI Peripheral vascular disease Hypertension Hyperlipidemia Diabetes mellitus Obstructive sleep apnea, noncompliant with CPAP Morbid obesity PLAN: Continue current cardiac medications Patient is stable for discharge home today from a cardiac standpoint Patient to follow up outpatient with Dr. Acevedo Nurse practitioner note has been reviewed by physician. Signing provider agrees with the documented findings, assessment, and plan of care. Objective - Vital Signs Vital signs: Vital Signs Temp 97.8 F 07/18/21 12:00 Pulse 57 L 07/18/21 12:00 Resp 18 07/18/21 12:00 BP 161/69 07/18/21 12:00 Pulse Ox 98 07/18/21 12:00 Intake & Output 07/17/21 07/18/21 07/18/21 18:59 06:59 18:59 Intake Total 180 Balance 180 Weight 138.7 kg Intake: Oral 180 Other: Voiding Method Bedpan Bedpan # Voids 1 1 - Labs CBC & Chem 7: 07/17/21 07:36 07/18/21 07:36 Labs: Abnormal Lab Results - Last 24 Hours (Table) 07/17/21 07/17/21 07/17/21 Range/Units 15:15 16:18 19:58 Creatinine (0.52-1.04) mg/dL POC Glucose (mg/dL) 255 H 312 H (75-99) mg/dL Urine Glucose (UA) 1+ H (Negative) Ur Leukocyte Esterase Moderate H (Negative) Hyaline Casts 7 H (0-2) /lpf Urine Mucus Rare H (None) /hpf 07/18/21 07/18/21 Range/Units 07:36 11:38 Creatinine 1.12 H (0.52-1.04) mg/dL POC Glucose (mg/dL) 216 H (75-99) mg/dL Urine Glucose (UA) (Negative) Ur Leukocyte Esterase (Negative) Hyaline Casts (0-2) /lpf Urine Mucus (None) /hpf Microbiology - Last 24 Hours (Table) 07/17/21 15:00 Gram Stain - Preliminary Foot - Right Wound Culture - Preliminary
--- NOTE | 2021-07-18 14:02 | PN ---
PROGRESS NOTE DATE OF SERVICE: 07/18/2021 REASON FOR FOLLOWUP: Left second toe wound infection and cellulitis. INTERVAL HISTORY: The patient is afebrile. The patient is breathing slightly comfortably. Denies having any chest pain or shortness of breath or cough. No abdominal pain or any worsening pain to the left second toe. PHYSICAL EXAMINATION: Blood pressure with a pulse of 57, temperature 97.8. She is 98% on room air. GENERAL DESCRIPTION: General description is an elderly female lying in bed in no distress. RESPIRATORY SYSTEM: Unlabored breathing. Clear to auscultation anteriorly. HEART: S1, S2. Regular rate and rhythm. ABDOMEN: Soft. No tenderness. Left foot is currently dressed. No obvious drainage. LABS: Local cultures are currently pending. X-ray did not show any bony changes in the second toe. DIAGNOSTIC IMPRESSION AND PLAN: Patient with left second toe nonhealing wound with concern for underlying wound infection and osteomyelitis. Bone scan will be obtained. Cultures will be followed. Continue with the vancomycin and monitor her kidney function closely. MMODL / IJN: [id number] /
--- NOTE | 2021-07-18 15:53 | P.PN ---
Subjective Progress Note Date: 07/18/21 Is a 71-year-old female admitted with non-STEMI, status post stenting of re- stenotic lesion , proximal LAD, nonhealing wound of left second toe and multiple other medical issues. Foot x-ray did not report any bony changes of the second toe. Cultures pending. Afebrile. Maintain on vancomycin, creatinine 1.122 days chest pain, palpitations or shortness of breath. Objective - Vital Signs Vital signs: Vital Signs Temp 97.8 F 07/18/21 12:00 Pulse 57 L 07/18/21 12:00 Resp 18 07/18/21 12:00 BP 161/69 07/18/21 12:00 Pulse Ox 98 07/18/21 12:00 Intake & Output 07/17/21 07/18/21 07/18/21 18:59 06:59 18:59 Intake Total 180 Balance 180 Weight 138.7 kg Intake: Oral 180 Other: Voiding Method Bedpan Bedpan # Voids 1 1 - Exam PHYSICAL EXAM: VITAL SIGNS: [As above] GENERAL: Sitting up in bed, no acute distress HEENT: Conjunctivae normal. eyes normal. Oral mucosa moist NECK: No JVD. No thyroid enlargement. CARDIOVASCULAR: S1, S2 regular. No murmur RESPIRATION: Breath sounds diminished in the bases. No rhonchi or crackles. ABDOMEN: Soft, nontender . No guarding. no masses palpable. Positive Bowel sounds heard. LEGS: Trace lower extremity edema. Left second toe dressing clean dry and intact PSYCHIATRY: Alert and oriented X3, mood and affect normal. NERVOUS SYSTEM: Cranial N 2-12 grossly normal. No focal deficits. Strength and sensation grossly intact.. Skin: Warm and dry, no rash Microbiology 07/17/21 15:00 Foot - Right Gram Stain - Preliminary 07/17/21 15:00 Foot - Right Wound Culture - Preliminary - Labs CBC & Chem 7: 07/17/21 07:36 07/18/21 07:36 Labs: Abnormal Lab Results - Last 24 Hours (Table) 07/17/21 07/17/21 07/17/21 Range/Units 15:15 16:18 19:58 Creatinine (0.52-1.04) mg/dL POC Glucose (mg/dL) 255 H 312 H (75-99) mg/dL Urine Glucose (UA) 1+ H (Negative) Ur Leukocyte Esterase Moderate H (Negative) Hyaline Casts 7 H (0-2) /lpf Urine Mucus Rare H (None) /hpf 07/18/21 07/18/21 Range/Units 07:36 11:38 Creatinine 1.12 H (0.52-1.04) mg/dL POC Glucose (mg/dL) 216 H (75-99) mg/dL Urine Glucose (UA) (Negative) Ur Leukocyte Esterase (Negative) Hyaline Casts (0-2) /lpf Urine Mucus (None) /hpf Microbiology - Last 24 Hours (Table) 07/17/21 15:00 Gram Stain - Preliminary Foot - Right Wound Culture - Preliminary Assessment and Plan Assessment: NSTEMI status post stenting of LAD, in a patient with history of CAD, stenting Nonhealing left second toe wound possible osteomyelitis, bone scan pending, cultures finalizing Diabetes mellitus type 2 Hypertension Hyperlipidemia Peripheral vascular disease Obstructive sleep apnea, noncompliant with CPAP Morbid obesity, BMI 49.4 Plan: Continue on current medication regime ,monitoring and symptomatic treatment. Cleared by cardiology for discharge. Bone scan ordered. Cultures pending. Maintain IV antibiotics vancomycin as per ID. Close monitoring of renal function with repeat labs ordered for a.m. labile blood sugars, Levemir increased yesterday, continue close monitoring. Discharge planning soon. The impression and plan of care has been dictated as directed. : I performed a history and examination of this patient, discussed the same with the dictator. I agree with the dictator's note ,documented as a scribe. Any additional findings or plans will be noted.
[2021-07-18 16:53] LABS: Glucose,Whole Blood 303 mg/dL (75-99)
[2021-07-18 20:13] LABS: Glucose,Whole Blood 444 mg/dL (75-99)
[2021-07-18] MEDS: ATORVASTATIN 80 MG TAB PO SCH (20:32)
[2021-07-18] MEDS: INSULIN DETEMIR (LEVEMIR) 100 UNIT/ML SYR SQ SCH (20:32)
[2021-07-18] MEDS: MORPHINE SULFATE 4 MG/ML SYRINGE IV PRN (20:37)
[2021-07-18] MEDS ORDERED: INSULIN ASPART (NovoLOG) 100 UNIT/ML VIAL SQ ONE (21:33)
[2021-07-18 22:27] LABS: Glucose,Whole Blood 304 mg/dL (75-99)
[2021-07-19 06:10] LABS: Glucose,Whole Blood 258 mg/dL (75-99)
[2021-07-19] MEDS: INSULIN ASPART (NovoLOG) 100 UNIT/ML VIAL SQ SCH ×4 (06:33→22:43)
[2021-07-19] MEDS: LEVOTHYROXINE 50 MCG TAB PO SCH (06:33)
[2021-07-19] MEDS: carvediloL 12.5 MG TAB PO SCH ×2 (06:33→17:22)
[2021-07-19 08:40] LABS: Basophils % (A) 0 %; Eosinophils # (A) 0.3 k/uL (0-0.7); Eosinophils % (A) 4 %; HCT 33.6 % (34.0-46.0); HGB 10.9 gm/dL (11.4-16.0); Hypochromasia Slight; Lymphocytes # (A) 1.2 k/uL (1.0-4.8); Lymphocytes % (A) 13 %; MCH 28.3 pg (25.0-35.0); MCHC 32.5 g/dL (31.0-37.0); MCV 87.1 fL (80.0-100.0); Mean Platelet Volume 7.6; Monocytes # (A) 0.6 k/uL (0-1.0); Monocytes % (A) 6 %; Neutrophils % (A) 75 %; Platelet Count 264 k/uL (150-450); RBC 3.86 m/uL (3.80-5.40); WBC 9.3 k/uL (3.8-10.6)
[2021-07-19] MEDS: LIOTHYRONINE SODIUM 5 MCG TAB PO SCH (08:51)
[2021-07-19] MEDS: ARIPiprazole 5 MG TAB PO SCH (08:51)
[2021-07-19] MEDS: CHOLECALCIFEROL 25 MCG (1000 IU) TABLET PO SCH (08:51)
[2021-07-19] MEDS: VANCOMYCIN 2,000 MG in SODIUM CHLORIDE 0.9% 500 ML 500 ML IVPB SCH (08:51)
[2021-07-19] MEDS: CALCIUM CARBONATE 500 MG CHEWABLE PO SCH (08:51)
[2021-07-19] MEDS: VALSARTAN 160 MG TAB PO SCH ×2 (08:51→20:57)
[2021-07-19] MEDS: TRIAMTERENE-HCTZ 37.5-25MG 1 EACH CAP PO SCH (08:51)
[2021-07-19] MEDS: SERTRALINE 50 MG TAB PO SCH (08:51)
[2021-07-19] MEDS: ASPIRIN 81 MG PO SCH (08:51)
[2021-07-19 08:52] LABS: C Reactive Protein 2.6 mg/dL (<1.0); Calcium 10.2 mg/dL (8.4-10.2); Potassium 5.4 mmol/L (3.5-5.1)
[2021-07-19 11:51] LABS: Glucose,Whole Blood 203 mg/dL (75-99)
[2021-07-19 12:02] LABS: Erythrocyte Sedimentation Rate 35 mm/hr (0-20)
[2021-07-19] MEDS: CEFEPIME 2 GM in SODIUM CHLORIDE 0.9% 100 ML IVPB SCH ×2 (12:36→22:46)
--- NOTE | 2021-07-19 14:16 | P.PN ---
Subjective Progress Note Date: 07/19/21 HISTORY OF PRESENT ILLNESS: The patient is a 71-year-old female with past medical history of coronary artery disease status post stenting in June and July 2020, obesity, diabetes, and hypertension who follows in the office with Dr. Acevedo. Cardiology was consulted after the patient presented to the emergency room with chest discomfort occurring over the last 2 days. She states it was a pressure-like sensation and was occurring in the evening hours. She states it was not associated with any medication or oral intake. She states that this it did not radiate to her jaw or her left arm. She does have chronic shortness of breath, which she states is unchanged. The patient has been following with a vascular surgeon for abnormal BALTAZAR. She states she is scheduled to undergo aortogram and stress testing within the next several weeks. We discussed EKG abnormality along with elevated troponins in detail with the patient. We recommend proceeding with coronary angiogram. DIAGNOSTICS: EKG shows sinus mechanism with ST depression in lead 1 and aVL Chest x-ray shows no active cardiopulmonary disease Laboratory data: WBC 13.1, hemoglobin 12.1, hematocrit 37.8, platelet 273, sodium 133, potassium 4.6, BUN 25, creatinine 1.04, AST 24, ALT 16, BNP 1930, troponin 0.07, 1.13, 1.14 Vital signs: Temp 98F, pulse rate 74, respiratory rate 19, blood pressure 157/59, SpO2 95% on room air 07/17/2021 She states she's been doing relatively well since her procedure yesterday. She denies any chest pain or chest pressure. She is breathing well and able to lie comfortably flat in bed. No heart racing or fluttering. No dizziness or lightheadedness when ambulating to the restroom. She does have pain in her lower extremity and is following with a vascular surgeon in the wound clinic. She does complain of urinary frequency ambulation may have a urinary tract infection 07/18/2021 Patient examined this morning at the bedside. Patient is status post PCI to proximal LAD which was a instent restenosis. EF 40-45%. Patient denies chest pain or pressure. She denies shortness of breath. Vital signs 07/19/2021 Patient examined this morning at the bedside. Patient denies chest pain or pressure. She denies stress of breath. Vital signs are stable. PHYSICAL EXAM: VITAL SIGNS: Reviewed. GENERAL: Well-developed in no acute distress. NECK: Supple. No JVD or thyromegaly LUNGS: Respirations even and unlabored. Lungs essentially clear to auscultation bilaterally. HEART: Regular rate and rhythm. S1 and S2 heard. EXTREMITIES: Normal range of motion. No clubbing or cyanosis. Peripheral pulses intact. Trace bilateral lower extremity edema. Right groin cath site soft with no hematoma noted. ASSESSMENT: Non-STEMI, s/p PCI to LAD Possible urinary tract infection Nonhealing wound of left second toe Coronary artery disease with previous PCI Peripheral vascular disease Hypertension Hyperlipidemia Diabetes mellitus Obstructive sleep apnea, noncompliant with CPAP Morbid obesity PLAN: Continue current cardiac medications Patient is stable for discharge home today from a cardiac standpoint Patient to follow up outpatient with Dr. Acevedo Nurse practitioner note has been reviewed by physician. Signing provider agrees with the documented findings, assessment, and plan of care. Objective - Vital Signs Vital signs: Vital Signs Temp 97.9 F 07/19/21 08:00 Pulse 80 07/19/21 12:00 Resp 18 07/19/21 04:00 BP 146/69 07/19/21 12:00 Pulse Ox 98 07/19/21 12:00 Intake & Output 07/18/21 07/19/21 07/19/21 18:59 06:59 18:59 Intake Total 236 1000 420 Balance 236 1000 420 Weight 138.9 kg Intake: Intake, IV Titration 1000 Amount Vancomycin 2,000 mg In 1000 Sodium Chloride 0.9% 500 ml 500 ml @ 167 mls/hr IVPB Q24H [facility] Rx#: [id number] Oral 236 420 Other: Voiding Method Bedpan # Voids 2 - Labs CBC & Chem 7: 07/19/21 07:51 07/19/21 07:51 Labs: Abnormal Lab Results - Last 24 Hours (Table) 07/18/21 07/18/21 07/18/21 Range/Units 16:52 20:12 22:25 Hgb (11.4-16.0) gm/dL Hct (34.0-46.0) % ESR (0-20) mm/hr Sodium (137-145) mmol/L Potassium (3.5-5.1) mmol/L Chloride (98-107) mmol/L Carbon Dioxide (22-30) mmol/L BUN (7-17) mg/dL Creatinine (0.52-1.04) mg/dL Glucose (74-99) mg/dL POC Glucose (mg/dL) 303 H 444 H 304 H (75-99) mg/dL C-Reactive Protein (<1.0) mg/dL 07/19/21 07/19/21 07/19/21 Range/Units 06:09 07:51 07:51 Hgb 10.9 L (11.4-16.0) gm/dL Hct 33.6 L (34.0-46.0) % ESR 35 H (0-20) mm/hr Sodium 136 L (137-145) mmol/L Potassium 5.4 H (3.5-5.1) mmol/L Chloride 108 H (98-107) mmol/L Carbon Dioxide 21 L (22-30) mmol/L BUN 45 H (7-17) mg/dL Creatinine 1.41 H (0.52-1.04) mg/dL Glucose 244 H (74-99) mg/dL POC Glucose (mg/dL) 258 H (75-99) mg/dL C-Reactive Protein 2.6 H (<1.0) mg/dL 07/19/21 Range/Units 11:49 Hgb (11.4-16.0) gm/dL Hct (34.0-46.0) % ESR (0-20) mm/hr Sodium (137-145) mmol/L Potassium (3.5-5.1) mmol/L Chloride (98-107) mmol/L Carbon Dioxide (22-30) mmol/L BUN (7-17) mg/dL Creatinine (0.52-1.04) mg/dL Glucose (74-99) mg/dL POC Glucose (mg/dL) 203 H (75-99) mg/dL C-Reactive Protein (<1.0) mg/dL Microbiology - Last 24 Hours (Table) 07/17/21 15:00 Gram Stain - Preliminary Foot - Right Wound Culture - Preliminary Gram Neg Bacilli
--- NOTE | 2021-07-19 15:13 | CDI ---
Documentation Clarification Form Date: 07/19/2021 03:00:08 PM From: Mavis Parham CCS, CCDS Admit Date: 07/16/2021 12:43:00 AM Patient Name: Karly Goyal Visit Number: [id number] Discharge Date: ATTENTION: The Clinical Documentation Specialists (CDI) and [facility] Coding Staff appreciate your assistance in clarifying documentation. Please respond to the clarification below the line at the bottom and electronically sign. The CDI & [facility] Coding staff will review the response and follow-up if needed. Please note: Queries are made part of the Legal Health Record. If you have any questions, please contact the author of this message via ITS. Dr. Boris Galeano: Per the patient's 07/16 History & Physical: DM II with Diabetic Retinopathy, Diabetic Neuropathy bilaterally and Insulin Dependent. Per the 07/18 Infectious Disease Progress Note: Left 2nd toe wound infection and cellulitis. Please clarify if there is a relationship between the diagnosis of IDDM and Cellulitis of the Toe. History/Risk Factors per the 07/16 H/P: CAD w/stents place in 06/2020, CVA, IDDM II, Hypertension, Ischemic Cardiomyopathy, Fatty Liver, Chronic Back Pain, DDD, Mild central canal stenosis, Migraines, Osteoporosis, UTI, Bilateral Tinnitis, BROCK, Benign Thyroid Nodules, Morbid Obesity. Clinical Indicators: Presented to the ED on 07/15 with Chest Pain, Bilateral Lower Extremity Edema. ED Clinical Impression: Acute NSTEMI 07/15 VS: T 99.3, P 100-105, R 21, BP 139/60, PO 95 - 94 RA, BMI: 49.4 07/15 LAB: WBC 13.1, Neut 10.5, APTT 21.8, Na 133, CO2 21, BUN 25, Glucose 403,Troponin 0.078, 1.130, 1.460; Total Protein 6.0, Albumin 3.3, Lipase 16 07/18 Left Foot Xray: Remote nonunion fractures involving the 4th & 5th digits. 07/17 Wound Culture (Preliminary): Gram Neg Bacilli Treatment 07/16: po Aspirin, IV Heparin, IV Morphine, Nitro sl, IV Heparin, IV Na Cl 1,000 mls @ 100 mls/hr q10H, IV Solumedrol, Nitro sl. 07/16 Left Heart Cath and PTCA w/stent of restenotic lesion in proximal LAD stent. 07/18 IV Vancomycin 500 mls # 167 mls/hr q24H, IV Cefepime 100 mls @ 25 mls/hr q12H, Bone scan pending, Cultures pendng. Please clarify the relationship, if any, which is clinically appropriate for this patient: [ ] Cellulitis is due to Diabetes Mellitus [ ] Cellulitis is not due to Diabetes Mellitus [ ] Other explanation of clinical findings (please specify) [ ] Unable to determine (no explanation for clinical findings) (Template Last Revised: January 2021) Cellulitis is due to Diabetes Mellitus MTDD
--- NOTE | 2021-07-19 15:20 | CDI ---
Documentation Clarification Form Date: 07/19/2021 03:14:00 PM From: Mavis Parham CCS, CCDS Admit Date: 07/16/2021 12:43:00 AM Patient Name: Karly Goyal Visit Number: [id number] Discharge Date: ATTENTION: The Clinical Documentation Specialists (CDI) and [facility] Coding Staff appreciate your assistance in clarifying documentation. Please respond to the clarification below the line at the bottom and electronically sign. The CDI & [facility] Coding staff will review the response and follow-up if needed. Please note: Queries are made part of the Legal Health Record. If you have any questions, please contact the author of this message via ITS. Dr. Alexandr Rivera: Congestive Heart Failure is documented in the 07/16 Cardiology Consult and the subsequent 07/17 Cardiology Progress Note without further specificity. Additional information regarding the Type & Acuity of CHF is requested. History/Risk Factors per the 07/16 H/P: CAD w/stents place in 06/2020, CVA, IDDM II, Hypertension, Ischemic Cardiomyopathy, Fatty Liver, Chronic Back Pain, DDD, Mild central canal stenosis, Migraines, Osteoporosis, UTI, Bilateral Tinnitis, BROCK, Benign Thyroid Nodules, Morbid Obesity. Clinical Indicators: Presented to the ED on 07/15 with Chest Pain, Bilateral Lower Extremity Edema. ED Clinical Impression: Acute NSTEMI 07/15 VS: T 99.3, P 100-105, R 21, BP 139/60, PO 95 - 94 RA, BMI: 49.4 07/15 LAB: WBC 13.1, Neut 10.5, APTT 21.8, Na 133, CO2 21, BUN 25, Glucose 403,Troponin 0.078, 1.130, 1.460; Total Protein 6.0, Albumin 3.3, Lipase 16 07/18 Left Foot Xray: Remote nonunion fractures involving the 4th & 5th digits. 07/17 Wound Culture (Preliminary): Gram Neg Bacilli 07/16 ECHO: Left ventricular size is normal. Moderate concentric LVH. Left ventricular systolic function is mild-moderately impaired w/EF 40-45%, Mild MR, Mild TR, No pericardial effusion. Treatment 07/16: po Aspirin, IV Heparin, IV Morphine, Nitro sl, IV Heparin, IV Na Cl 1,000 mls @ 100 mls/hr q10H, IV Solumedrol, Nitro sl. 07/16 Left Heart Cath and PTCA w/stent of restenotic lesion in proximal LAD stent. 07/18 IV Vancomycin 500 mls # 167 mls/hr q24H, IV Cefepime 100 mls @ 25 mls/hr q12H, Bone scan pending, Cultures pending In your professional opinion, can you please clarify the Type & Acuity of CHF if known? [ ] Acute Systolic Heart Failure [ ] Chronic Systolic Heart Failure [ ] Acute on Chronic Systolic Heart Failure [ ] Congestive Heart Failure is ruled out [ ] Other, please specify [ ] Unable to determine (Template Last Revised: December 2020) Unable to determine MTDD
--- NOTE | 2021-07-19 15:54 | P.PN ---
Subjective Progress Note Date: 07/19/21 Is a 71-year-old female admitted with non-STEMI, status post stenting of re- stenotic lesion , proximal LAD, nonhealing wound of left second toe and multiple other medical issues. Foot x-ray did not report any bony changes of the second toe. Cultures pending. Afebrile. Maintain on vancomycin, creatinine 1.12. Denies chest pain, palpitations or shortness of breath. 07/19/21 maintained on IV antibiotics. Afebrile. Foot wound culture reporting gram-negative bacilli.Denies chest pain, palpitations or shortness of breath. Denies chills or fevers. Scheduled for bone scan this afternoon. Renal fu nction trending up, 1.4, Dyazide discontinued. Good diet intake, consuming 100% . Denies nausea vomiting or diarrhea. Denies abdominal pain. Blood sugars uncontrolled in the 200s. Objective - Vital Signs Vital signs: Vital Signs Temp 97.9 F 07/19/21 08:00 Pulse 80 07/19/21 12:00 Resp 18 07/19/21 04:00 BP 146/69 07/19/21 12:00 Pulse Ox 98 07/19/21 12:00 Intake & Output 07/18/21 07/19/21 07/19/21 18:59 06:59 18:59 Intake Total 236 1000 520 Balance 236 1000 520 Weight 138.9 kg Intake: Intake, IV Titration 1000 Amount Vancomycin 2,000 mg In 1000 Sodium Chloride 0.9% 500 ml 500 ml @ 167 mls/hr IVPB Q24H [facility] Rx#: [id number] Oral 236 520 Other: Voiding Method Bedpan # Voids 2 - Exam PHYSICAL EXAM: VITAL SIGNS: [As above] GENERAL: Sitting up in bed, no acute distress HEENT: Conjunctivae normal. eyes normal. Oral mucosa moist NECK: Supple, No JVD. CARDIOVASCULAR: S1, S2 regular. No murmur RESPIRATION: Breath sounds diminished in the bases. No rhonchi or crackles. ABDOMEN: Soft, nontender . No guarding. no masses palpable. Positive Bowel sounds heard. LEGS: Trace lower extremity edema. Left second toe dressing clean dry and intact PSYCHIATRY: Alert and oriented X3, mood and affect normal. NERVOUS SYSTEM: Cranial N 2-12 grossly normal. No focal deficits. Strength and sensation grossly intact.. Skin: Warm and dry, no rash Microbiology 07/17/21 15:00 Foot - Right Gram Stain - Preliminary 07/17/21 15:00 Foot - Right Wound Culture - Preliminary Gram Neg Bacilli - Labs CBC & Chem 7: 07/19/21 07:51 07/19/21 07:51 Labs: Abnormal Lab Results - Last 24 Hours (Table) 07/18/21 07/18/21 07/18/21 Range/Units 16:52 20:12 22:25 Hgb (11.4-16.0) gm/dL Hct (34.0-46.0) % ESR (0-20) mm/hr Sodium (137-145) mmol/L Potassium (3.5-5.1) mmol/L Chloride (98-107) mmol/L Carbon Dioxide (22-30) mmol/L BUN (7-17) mg/dL Creatinine (0.52-1.04) mg/dL Glucose (74-99) mg/dL POC Glucose (mg/dL) 303 H 444 H 304 H (75-99) mg/dL C-Reactive Protein (<1.0) mg/dL 07/19/21 07/19/21 07/19/21 Range/Units 06:09 07:51 07:51 Hgb 10.9 L (11.4-16.0) gm/dL Hct 33.6 L (34.0-46.0) % ESR 35 H (0-20) mm/hr Sodium 136 L (137-145) mmol/L Potassium 5.4 H (3.5-5.1) mmol/L Chloride 108 H (98-107) mmol/L Carbon Dioxide 21 L (22-30) mmol/L BUN 45 H (7-17) mg/dL Creatinine 1.41 H (0.52-1.04) mg/dL Glucose 244 H (74-99) mg/dL POC Glucose (mg/dL) 258 H (75-99) mg/dL C-Reactive Protein 2.6 H (<1.0) mg/dL 07/19/21 Range/Units 11:49 Hgb (11.4-16.0) gm/dL Hct (34.0-46.0) % ESR (0-20) mm/hr Sodium (137-145) mmol/L Potassium (3.5-5.1) mmol/L Chloride (98-107) mmol/L Carbon Dioxide (22-30) mmol/L BUN (7-17) mg/dL Creatinine (0.52-1.04) mg/dL Glucose (74-99) mg/dL POC Glucose (mg/dL) 203 H (75-99) mg/dL C-Reactive Protein (<1.0) mg/dL Microbiology - Last 24 Hours (Table) 07/17/21 15:00 Gram Stain - Preliminary Foot - Right Wound Culture - Preliminary Gram Neg Bacilli Assessment and Plan Assessment: NSTEMI status post stenting of LAD, in a patient with history of CAD, stenting Nonhealing left second toe wound possible osteomyelitis, bone scan pending, wound culture reporting gram-negative bacilli , finalizing Acute renal failure. Diabetes mellitus type 2, uncontrolled Hypertension Hyperlipidemia Peripheral vascular disease Obstructive sleep apnea, noncompliant with CPAP Morbid obesity, BMI 49.4 Plan: Continue on current medication regime ,monitoring and symptomatic treatment. Worsening renal function, Dyazide discontinued, gentle IV fluid hydration initiated. Bone scan pending. Cultures finalizing. IV antibiotics as per ID. Close monitoring of renal function with repeat labs ordered for a.m. Levemir increased,continue close monitoring of Accu-Cheks. Discharge planning soon, pending bone scan results. The impression and plan of care has been dictated as directed. : I performed a history and examination of this patient, discussed the same with the dictator. I agree with the dictator's note ,documented as a scribe. Any additional findings or plans will be noted.
[2021-07-19 16:00] LABS: Glucose,Whole Blood 260 mg/dL (75-99)
--- NOTE | 2021-07-19 16:37 | PN ---
PROGRESS NOTE DATE OF SERVICE: 07/19/2021 REASON FOR FOLLOWUP: Left second toe wound and concern for underlying osteomyelitis. INTERVAL HISTORY: The patient is afebrile. The patient is breathing comfortably. No chest pain, shortness of breath or cough. No abdominal pain or any worsening pain in the left foot. PHYSICAL EXAMINATION: Blood pressure 102/50 with a pulse of 57, temperature 97.9. She is 98% on room air. GENERAL DESCRIPTION: General description is an elderly female up in the chair in no distress. RESPIRATORY SYSTEM: Unlabored breathing. Left foot second toe is currently dressed. No drainage on the dressing. LABS: Hemoglobin is 10.1, white count 9.3, BUN of 45, creatinine is 1.41. Local culture with Gram-negative bacilli. DIAGNOSTIC IMPRESSION AND PLAN: Patient with a left second toe nonhealing wound and concern for underlying osteomyelitis. Culture now showing Gram-negative. Antibiotic adjusted to cefepime. Waiting for the bone scan. Discharge antibiotic on the basis of the bone scan and cultures. Continue with supportive care. MMODL / IJN: [id number] /
[2021-07-19] MEDS: SODIUM CHLORIDE 0.9% 1,000 ML IV SCH (17:21)
[2021-07-19 19:45] LABS: Glucose,Whole Blood 335 mg/dL (75-99)
[2021-07-19] MEDS: TICAGRELOR 90 MG TAB PO SCH (20:56)
[2021-07-19] MEDS: ATORVASTATIN 80 MG TAB PO SCH (20:56)
[2021-07-19] MEDS: INSULIN DETEMIR (LEVEMIR) 100 UNIT/ML SYR SQ SCH (20:57)
[2021-07-19] MEDS: MORPHINE SULFATE 4 MG/ML SYRINGE IV PRN (20:59)
--- NOTE | 2021-07-19 22:44 | NM ---
EXAMINATION TYPE: NM bone 3 phase DATE OF EXAM: 07/19/2021 COMPARISON: NONE HISTORY: Left second toe wound. Osteomyelitis. Triple phase bone scintigraphy was performed following the injection of 26.7 mCi Tc 99m MDP. Immedia te images and 3 hours post injection images acquired. FINDINGS: Flow study shows no significant hyperemia. The blood pool images show no significant hyperemia. The delayed imaging shows increased uptake in th e right mid foot. This is typical of arthritic disease. I see no evidence of abnormal increased uptak e in the toes to suggest osteomyelitis.. IMPRESSION: There is no evidence for osteomyelitis.
[2021-07-20 06:05] LABS: Glucose,Whole Blood 202 mg/dL (75-99)
[2021-07-20] MEDS: INSULIN ASPART (NovoLOG) 100 UNIT/ML VIAL SQ SCH ×3 (06:30→17:00)
[2021-07-20] MEDS: LEVOTHYROXINE 50 MCG TAB PO SCH (06:30)
[2021-07-20] MEDS: carvediloL 12.5 MG TAB PO SCH ×2 (06:30→17:01)
[2021-07-20 08:25] LABS: Calcium 10.4 mg/dL (8.4-10.2); Potassium 5.1 mmol/L (3.5-5.1)
[2021-07-20 08:35] VITALS: TEMP 98.2
[2021-07-20] MEDS: TICAGRELOR 90 MG TAB PO SCH ×2 (08:36→20:31)
[2021-07-20] MEDS: SODIUM CHLORIDE 0.9% 1,000 ML IV SCH (08:36)
[2021-07-20] MEDS: ASPIRIN 81 MG PO SCH (08:36)
[2021-07-20] MEDS: CHOLECALCIFEROL 25 MCG (1000 IU) TABLET PO SCH (08:36)
[2021-07-20] MEDS: CALCIUM CARBONATE 500 MG CHEWABLE PO SCH (08:36)
[2021-07-20] MEDS: SERTRALINE 50 MG TAB PO SCH (08:36)
[2021-07-20] MEDS: ARIPiprazole 5 MG TAB PO SCH (08:37)
[2021-07-20] MEDS: LIOTHYRONINE SODIUM 5 MCG TAB PO SCH (08:37)
[2021-07-20] MEDS: VALSARTAN 160 MG TAB PO SCH ×2 (08:41→20:32)
[2021-07-20 11:53] LABS: Glucose,Whole Blood 360 mg/dL (75-99)
[2021-07-20] MEDS: CEFEPIME 2 GM in SODIUM CHLORIDE 0.9% 100 ML IVPB SCH (12:24)
--- NOTE | 2021-07-20 13:35 | P.PN ---
Subjective Progress Note Date: 07/20/21 HISTORY OF PRESENT ILLNESS: The patient is a 71-year-old female with past medical history of coronary artery disease status post stenting in June and July 2020, obesity, diabetes, and hypertension who follows in the office with Dr. Acevedo. Cardiology was consulted after the patient presented to the emergency room with chest discomfort occurring over the last 2 days. She states it was a pressure-like sensation and was occurring in the evening hours. She states it was not associated with any medication or oral intake. She states that this it did not radiate to her jaw or her left arm. She does have chronic shortness of breath, which she states is unchanged. The patient has been following with a vascular surgeon for abnormal BALTAZAR. She states she is scheduled to undergo aortogram and stress testing within the next several weeks. We discussed EKG abnormality along with elevated troponins in detail with the patient. We recommend proceeding with coronary angiogram. DIAGNOSTICS: EKG shows sinus mechanism with ST depression in lead 1 and aVL Chest x-ray shows no active cardiopulmonary disease Laboratory data: WBC 13.1, hemoglobin 12.1, hematocrit 37.8, platelet 273, sodium 133, potassium 4.6, BUN 25, creatinine 1.04, AST 24, ALT 16, BNP 1930, troponin 0.07, 1.13, 1.14 Vital signs: Temp 98F, pulse rate 74, respiratory rate 19, blood pressure 157/59, SpO2 95% on room air 07/17/2021 She states she's been doing relatively well since her procedure yesterday. She denies any chest pain or chest pressure. She is breathing well and able to lie comfortably flat in bed. No heart racing or fluttering. No dizziness or lightheadedness when ambulating to the restroom. She does have pain in her lower extremity and is following with a vascular surgeon in the wound clinic. She does complain of urinary frequency ambulation may have a urinary tract infection 07/18/2021 Patient examined this morning at the bedside. Patient is status post PCI to proximal LAD which was a instent restenosis. EF 40-45%. Patient denies chest pain or pressure. She denies shortness of breath. Vital signs 07/19/2021 Patient examined this morning at the bedside. Patient denies chest pain or pressure. She denies stress of breath. Vital signs are stable. 07/20/2021 Patient examined this morning at the bedside. Patient denies chest pain or pr essure. She denies shortness of breath. Vital signs are stable. PHYSICAL EXAM: VITAL SIGNS: Reviewed. GENERAL: Well-developed in no acute distress. NECK: Supple. No JVD or thyromegaly LUNGS: Respirations even and unlabored. Lungs essentially clear to auscultation bilaterally. HEART: Regular rate and rhythm. S1 and S2 heard. EXTREMITIES: Normal range of motion. No clubbing or cyanosis. Peripheral pulses intact. Trace bilateral lower extremity edema. Right groin cath site soft with no hematoma noted. ASSESSMENT: Non-STEMI, s/p PCI to LAD Possible urinary tract infection Nonhealing wound of left second toe Coronary artery disease with previous PCI Peripheral vascular disease Hypertension Hyperlipidemia Diabetes mellitus Obstructive sleep apnea, noncompliant with CPAP Morbid obesity PLAN: Continue current cardiac medications Patient is stable for discharge home today from a cardiac standpoint Patient to follow up outpatient with Dr. Acevedo Nurse practitioner note has been reviewed by physician. Signing provider agrees with the documented findings, assessment, and plan of care. Objective - Vital Signs Vital signs: Vital Signs Temp 98.2 F 07/20/21 08:00 Pulse 75 07/20/21 08:00 Resp 16 07/20/21 08:00 BP 125/74 07/20/21 08:00 Pulse Ox 98 07/20/21 08:00 Intake & Output 07/19/21 07/20/21 07/20/21 18:59 06:59 18:59 Intake Total 700 340 480 Balance 700 340 480 Weight 140.5 kg Intake: Intake, IV Titration 340 Amount Cefepime 2 gm In Sodium 100 Chloride 0.9% 100 ml @ 25 mls/hr IVPB Q12H [facility] Rx# :[id number] Sodium Chloride 0.9% 1, 240 000 ml @ 60 mls/hr IV . [id number] [facility] Rx#:[id number] Oral 700 480 Other: Voiding Method Toilet # Voids 1 - Labs CBC & Chem 7: 07/19/21 07:51 07/20/21 07:38 Labs: Abnormal Lab Results - Last 24 Hours (Table) 07/19/21 07/19/21 07/20/21 Range/Units 15:58 19:41 06:03 Chloride (98-107) mmol/L Carbon Dioxide (22-30) mmol/L BUN (7-17) mg/dL Creatinine (0.52-1.04) mg/dL Glucose (74-99) mg/dL POC Glucose (mg/dL) 260 H 335 H 202 H (75-99) mg/dL Calcium (8.4-10.2) mg/dL 07/20/21 07/20/21 Range/Units 07:38 11:52 Chloride 110 H (98-107) mmol/L Carbon Dioxide 21 L (22-30) mmol/L BUN 45 H (7-17) mg/dL Creatinine 1.33 H (0.52-1.04) mg/dL Glucose 196 H (74-99) mg/dL POC Glucose (mg/dL) 360 H (75-99) mg/dL Calcium 10.4 H (8.4-10.2) mg/dL Microbiology - Last 24 Hours (Table) 07/17/21 15:00 Gram Stain - Preliminary Foot - Right Wound Culture - Preliminary Pseudomonas aeruginosa Presumptive Staph aureus Strep agalactiae - (group b)
--- NOTE | 2021-07-20 14:53 | PN ---
PROGRESS NOTE DATE OF SERVICE: 07/20/2021 REASON FOR FOLLOWUP: Left second toe wound infection. INTERVAL HISTORY: The patient is afebrile. The patient is breathing comfortably. Denies having any chest pain or shortness of breath or cough. No abdominal pain or any worsening pain to the left second toe. PHYSICAL EXAMINATION: Blood pressure 125/74, pulse of 75, temperature 98.2. She is 98% on room air. GENERAL DESCRIPTION: General description is an elderly female up in the chair in no distress. RESPIRATORY SYSTEM: Unlabored breathing. Clear to auscultation anteriorly. HEART: S1, S2. Regular rate and rhythm. ABDOMEN: Soft. No tenderness. Left second toe is currently dressed. No obvious drainage on the dressing. LABS: BUN of 45, creatinine 1.33. Local culture with a pseudomonas with sensitivities and Staph aureus pending. DIAGNOSTIC IMPRESSION AND PLAN: Patient with left second toe wound infection. Bone scan was negative for any osteomyelitis. Culture is showing a pseudomonas. Sensitivities and the Staph aureus still pending. That is holding her discharge. Once sensitivities are back, will be able to transition to oral antibiotics and close outpatient followup. Local wound care with dry Aquacel Silver dressing. MMODL / IJN: [id number] /
[2021-07-20 16:01] VITALS: BP 149/79
[2021-07-20 16:43] LABS: Glucose,Whole Blood 323 mg/dL (75-99)
[2021-07-20] MEDS ORDERED: INSULIN DETEMIR (LEVEMIR) 100 UNIT/ML SYR SQ SCH (19:10)
--- NOTE | 2021-07-20 19:18 | P.DS ---
Providers Date of admission: 07/16/21 00:43 Expected date of discharge: 07/20/21 Attending physician: Boris Galeano MD Consults: 07/16/21 00:43 Consult Physician Urgent Consulting Provider: Darshana Rosas Consult Reason/Comments: chf Do you want consulting provider notified?: Yes 07/16/21 15:09 Consult Physician Routine Consulting Provider: Boris Galeano Consult Reason/Comments: medical management Do you want consulting provider notified?: Yes 07/17/21 14:15 Consult Physician Routine Consulting Provider: Celestina Peck Consult Reason/Comments: Wound to right foot Do you want consulting provider notified?: Yes Primary care physician: Boris Galeano MD Hospital Course: Final Diagnoses: NSTEMI status post stenting of LAD, in a patient with history of CAD, stenting Nonhealing left second toe wound possible osteomyelitis, bone scan pending, wound culture reporting gram-negative bacilli , finalizing Acute renal failure. Diabetes mellitus type 2, uncontrolled Hypertension Hyperlipidemia Peripheral vascular disease Obstructive sleep apnea, noncompliant with CPAP Morbid obesity, BMI 49.4 Hospital course:Is a 71-year-old female admitted with non-STEMI, status post stenting of re-stenotic lesion , proximal LAD, nonhealing wound of left second toe and multiple other medical issues. Foot x-ray did not report any bony changes of the second toe. Cultures pending. Afebrile. Maintain on vancomycin, creatinine 1.12. Denies chest pain, palpitations or shortness of breath. 07/19/21 maintained on IV antibiotics. Afebrile. Foot wound culture reporting gram-negative bacilli.Denies chest pain, palpitations or shortness of breath. Denies chills or fevers. Scheduled for bone scan this afternoon. Renal function trending up, 1.4, Dyazide discontinued. Good diet intake, consuming 100% . Denies nausea vomiting or diarrhea. Denies abdominal pain. Blood sugars uncontrolled in the 200s. Bone scan reported no evidence for osteomyelitis. Preliminary Cultures reporting Pseudomonas aeruginosa, presumptive staph aureus, strep agalactiae, group B. Maintained on IV antibiotics. Afebrile. HEIDE inhibitor and Dyazide discontinued secondary to renal function to be reevaluated at follow-up in clinic with PCP. Significant clinical improvement. Significant clinical improvement. Patient will be discharged home today pending finalizing of wound cultures, final DC recommendations/antibiotics and clearance as per ID, in a stable condition with guarded prognosis. Further adjusted Lantus dose, with close monitoring of Accu-Cheks to promote wound healing. Hemoglobin A1c pending. Patient will require further diabetes education outpatient in clinic. - Exam GENERAL: Sitting up in bed, no acute distress, vital signs reviewed. NECK: Supple, No JVD. CARDIOVASCULAR: S1, S2 regular. No murmur RESPIRATION: Breath sounds diminished in the bases. No rhonchi or crackles. ABDOMEN: Soft, nontender . No guarding. no masses palpable. Positive Bowel sounds heard. LEGS: Trace lower extremity edema. Left second toe dressing clean dry and intact PSYCHIATRY: Alert and oriented X3, mood and affect normal. NERVOUS SYSTEM: Cranial N 2-12 grossly normal. No focal deficits. Strength and sensation grossly intact. The impression and plan of care has been dictated as directed. : I performed a history and examination of this patient, discussed the same with the dictator. I agree with the dictator's note ,documented as a scribe. Any additional findings or plans will be noted. Patient Condition at Discharge: Stable Plan - Discharge Summary New Discharge Prescriptions: New Valsartan [Diovan] 160 mg PO BID #60 tab Atorvastatin [Lipitor] 80 mg PO HS #30 tab carvediloL [Coreg*] 12.5 mg PO BID-W/MEALS #60 tab Continue Levothyroxine Sodium [Synthroid] 50 mcg PO AC-BRKFST Liothyronine Sodium [Cytomel] 5 mcg PO DAILY Sertraline HCl [Zoloft] 50 mg PO DAILY Cetirizine HCl [Zyrtec] 10 mg PO DAILY PRN PRN Reason: Allergy Symptoms Docusate [Colace] 100 mg PO BID PRN PRN Reason: Constipation Calcium Carbonate [Calcium] 600 mg PO DAILY Aspirin 81 mg PO DAILY #30 chew Ticagrelor [Brilinta] 90 mg PO BID #60 tab Cholecalciferol (Vitamin D3) [Vitamin D3 (5000 Iu)] 125 mcg PO DAILY Gabapentin 300 mg PO TID Glimepiride [Amaryl] 4 mg PO AC-BRKFST Nitroglycerin Sl Tabs [Nitrostat] 0.4 mg SL Q5M PRN PRN Reason: Chest Pain INSULIN ASPART (NovoLOG) [NovoLOG (formulary)] 6 units SQ AC-TID #0 INSULIN ASPART (NovoLOG) [NovoLOG (formulary)] See Protocol SQ AC-TID rOPINIRole HCL [Requip] 0.5 mg PO HS Gentamicin 0.1% Cream 1 applic TOPICAL BID Diclofenac Sodium Gel [Voltaren Gel] 4 gm TOPICAL QID PRN PRN Reason: Leg pain ARIPiprazole [Abilify] 5 mg PO DAILY Changed Insulin Glargine [Lantus Vial] 65 unit SQ HS #0 Discontinued carvediloL [Coreg] 6.25 mg PO AC-BID Triamterene-Hctz 37.5-25Mg [Dyazide 37.5-25 Capsule] 1 cap PO DAILY lisinopriL [Zestril] 2.5 mg PO DAILY Discharge Medication List Levothyroxine Sodium [Synthroid] 50 mcg PO AC-BRKFST 08/21/17 [History] Cetirizine HCl [Zyrtec] 10 mg PO DAILY PRN 05/06/20 [History] Liothyronine Sodium [Cytomel] 5 mcg PO DAILY 05/06/20 [History] Sertraline HCl [Zoloft] 50 mg PO DAILY 05/06/20 [History] Calcium Carbonate [Calcium] 600 mg PO DAILY 07/15/20 [History] Docusate [Colace] 100 mg PO BID PRN 07/15/20 [History] Aspirin 81 mg PO DAILY #30 chew 08/01/20 [Rx] Ticagrelor [Brilinta] 90 mg PO BID #60 tab 08/01/20 [Rx] Cholecalciferol (Vitamin D3) [Vitamin D3 (5000 Iu)] 125 mcg PO DAILY 02/18/21 [History] INSULIN ASPART (NovoLOG) [NovoLOG (formulary)] See Protocol SQ AC-TID 02/18/21 [History] Gabapentin 300 mg PO TID 04/07/21 [History] Glimepiride [Amaryl] 4 mg PO AC-BRKFST 04/07/21 [History] ARIPiprazole [Abilify] 5 mg PO DAILY 07/16/21 [History] Diclofenac Sodium Gel [Voltaren Gel] 4 gm TOPICAL QID PRN 07/16/21 [History] Gentamicin 0.1% Cream 1 applic TOPICAL BID 07/16/21 [History] Nitroglycerin Sl Tabs [Nitrostat] 0.4 mg SL Q5M PRN 07/16/21 [History] rOPINIRole HCL [Requip] 0.5 mg PO HS 07/16/21 [History] Atorvastatin [Lipitor] 80 mg PO HS #30 tab 07/20/21 [Rx] INSULIN ASPART (NovoLOG) [NovoLOG (formulary)] 6 units SQ AC-TID #0 07/20/21 [Rx] Insulin Glargine [Lantus Vial] 65 unit SQ HS #0 07/20/21 [Rx] Valsartan [Diovan] 160 mg PO BID #60 tab 07/20/21 [Rx] carvediloL [Coreg*] 12.5 mg PO BID-W/MEALS #60 tab 07/20/21 [Rx] Follow up Appointment(s)/Referral(s): Boris Galeano MD [Primary Care Provider] - 07/25/21 5:00 pm (Sunday- location -earliest available appointment) [facility] [NON-STAFF] - [facility] [NON-STAFF] - 1 Week (Please call to schedule appointment) Joshua Acevedo MD [STAFF PHYSICIAN] - 07/28/21 4:00 pm () Ambulatory/Diagnostic Orders: Complete Blood Count w/diff [LAB.AMB] Time Frame: 3 Days, Location: None Selected Patient Instructions/Handouts: *[facility] - After Heart Catheterization - Surgeon Partner Instructions Activity/Diet/Wound Care/Special Instructions: HEIDE inhibitor, Dyazide discontinued, reevaluate at follow-up in clinic to PCP
[2021-07-20 20:00] LABS: Glucose,Whole Blood 292 mg/dL (75-99)
[2021-07-20] MEDS: ATORVASTATIN 80 MG TAB PO SCH (20:31)
[2021-07-20] MEDS: INSULIN DETEMIR (LEVEMIR) 100 UNIT/ML SYR SQ SCH (20:32)
[2021-07-20 21:01] VITALS: PULSE 60; RESP 17
[2021-07-21 01:49] LABS: Hemoglobin A1C 10.9 % (4.0-6.0)
[2021-07-21] MEDS ORDERED: INSULIN ASPART (NovoLOG) 100 UNIT/ML VIAL SQ SCH (07:30)
== END 2021-07-20 22:50 | disposition home or self-care (01) | DRG 246 ==
LOC: EC 21:25 → 3SCARD 07-16 00:43 → 2SICU 07-16 14:30 → 3SCARD 07-16 18:42
PROVIDERS: ADMIT Family Medicine; ATTEND Family Medicine
PROC: 027034Z Dilation of Coronary Artery, One Artery with Drug-eluting Intraluminal Device, Percutaneous Approach (ICD-10-PCS; principal; 2021-07-16 13:00)
PROC: 4A023N7 Measurement of Cardiac Sampling and Pressure, Left Heart, Percutaneous Approach (ICD-10-PCS; principal; 2021-07-16 13:00)
PROC: B2111ZZ Fluoroscopy of Multiple Coronary Arteries using Low Osmolar Contrast (ICD-10-PCS; principal; 2021-07-16 13:00)
DX: T82.855A Stenosis of coronary artery stent, initial encounter (principal); I21.4 Non-ST elevation (NSTEMI) myocardial infarction; E44.1 Mild protein-calorie malnutrition; Z68.42 Body mass index [BMI] 45.0-49.9, adult; N17.9 Acute kidney failure, unspecified; I11.0 Hypertensive heart disease with heart failure; H91.90 Unspecified hearing loss, unspecified ear; H93.13 Tinnitus, bilateral; I25.10 Atherosclerotic heart disease of native coronary artery without angina pectoris; I25.2 Old myocardial infarction; I25.5 Ischemic cardiomyopathy; I50.9 Heart failure, unspecified; K76.0 Fatty (change of) liver, not elsewhere classified; E11.628 Type 2 diabetes mellitus with other skin complications; E11.65 Type 2 diabetes mellitus with hyperglycemia; L03.032 Cellulitis of left toe; Z79.4 Long term (current) use of insulin; E11.319 Type 2 diabetes mellitus with unspecified diabetic retinopathy without macular edema; E11.40 Type 2 diabetes mellitus with diabetic neuropathy, unspecified; E11.51 Type 2 diabetes mellitus with diabetic peripheral angiopathy without gangrene; E66.01 Morbid (severe) obesity due to excess calories; E04.1 Nontoxic single thyroid nodule; I69.328 Other speech and language deficits following cerebral infarction; E03.9 Hypothyroidism, unspecified; E78.5 Hyperlipidemia, unspecified; F31.9 Bipolar disorder, unspecified; F41.9 Anxiety disorder, unspecified; G43.909 Migraine, unspecified, not intractable, without status migrainosus; G47.33 Obstructive sleep apnea (adult) (pediatric); B96.5 Pseudomonas (aeruginosa) (mallei) (pseudomallei) as the cause of diseases classified elsewhere; B95.61 Methicillin susceptible Staphylococcus aureus infection as the cause of diseases classified elsewhere; B95.1 Streptococcus, group B, as the cause of diseases classified elsewhere; H54.3 Unqualified visual loss, both eyes; M15.9 Polyosteoarthritis, unspecified; M48.00 Spinal stenosis, site unspecified; M81.0 Age-related osteoporosis without current pathological fracture; Z79.02 Long term (current) use of antithrombotics/antiplatelets; Z79.82 Long term (current) use of aspirin; Z79.890 Hormone replacement therapy; Z79.899 Other long term (current) drug therapy; Z80.1 Family history of malignant neoplasm of trachea, bronchus and lung; Z80.7 Family history of other malignant neoplasms of lymphoid, hematopoietic and related tissues; Z80.8 Family history of malignant neoplasm of other organs or systems; Z82.49 Family history of ischemic heart disease and other diseases of the circulatory system; Z90.710 Acquired absence of both cervix and uterus; Z91.19 Patient's noncompliance with other medical treatment and regimen; Z96.651 Presence of right artificial knee joint; Z88.8 Allergy status to other drugs, medicaments and biological substances; Z91.041 Radiographic dye allergy status; Z91.040 Latex allergy status; Z98.42 Cataract extraction status, left eye; Z98.41 Cataract extraction status, right eye; Z98.890 Other specified postprocedural states; Z95.5 Presence of coronary angioplasty implant and graft; Z91.048 Other nonmedicinal substance allergy status
CPT/HCPCS: 36415; 71046; 78315; 80048; 80053; 80061; 81001; 82550; 82565; 83036; 83690; 83735; 83880; 84484; 85025; 85610; 85652; 85730; 86140; 87070; 87077; 87186; 87205; 93005; 93306; 93458; 94760; 96365; 96366; 99285

== ENCOUNTER 2021-07-23 16:54 | Inpatient (IN) | payer MEDICARE ==
--- NOTE | 2021-07-23 17:48 | ED ---
General Adult HPI - General Chief complaint: Recheck/Abnormal Lab/Rx Stated complaint: Toe infection Time Seen by Provider: 07/23/21 17:21 Source: patient, family, RN notes reviewed Mode of arrival: ambulatory Limitations: no limitations - History of Present Illness Initial comments: Patient is a pleasant 71-year-old female presenting to the emergency department with concern for left second toe infection. Patient does go to the wound center for this. Patient was recently in the hospital and had cardiac stent placed. Patient recently had some debridement done for left second toe however has significantly worsened since that time over just the past few days. Patient has no sensation of her face secondary to history of neuropathy and diabetes. - Related Data Home Medications Medication Instructions Recorded Confirmed Levothyroxine Sodium [Synthroid] 50 mcg PO AC-BRKFST 08/21/17 07/16/21 Cetirizine HCl [Zyrtec] 10 mg PO DAILY PRN 05/06/20 07/16/21 Liothyronine Sodium [Cytomel] 5 mcg PO DAILY 05/06/20 07/16/21 Sertraline HCl [Zoloft] 50 mg PO DAILY 05/06/20 07/16/21 Calcium Carbonate [Calcium] 600 mg PO DAILY 07/15/20 07/16/21 Docusate [Colace] 100 mg PO BID PRN 07/15/20 07/16/21 Cholecalciferol (Vitamin D3) 125 mcg PO DAILY 02/18/21 07/16/21 [Vitamin D3 (5000 Iu)] INSULIN ASPART (NovoLOG) [NovoLOG See Protocol SQ AC-TID 02/18/21 07/16/21 (formulary)] Gabapentin 300 mg PO TID 04/07/21 07/16/21 Glimepiride [Amaryl] 4 mg PO AC-BRKFST 04/07/21 07/16/21 ARIPiprazole [Abilify] 5 mg PO DAILY 07/16/21 07/16/21 Diclofenac Sodium Gel [Voltaren 4 gm TOPICAL QID PRN 07/16/21 07/16/21 Gel] Gentamicin 0.1% Cream 1 applic TOPICAL BID 07/16/21 07/16/21 Nitroglycerin Sl Tabs [Nitrostat] 0.4 mg SL Q5M PRN 07/16/21 07/16/21 rOPINIRole HCL [Requip] 0.5 mg PO HS 07/16/21 07/16/21 Previous Rx's Medication Instructions Recorded Aspirin 81 mg PO DAILY #30 chew 08/01/20 Ticagrelor [Brilinta] 90 mg PO BID #60 tab 08/01/20 Atorvastatin [Lipitor] 80 mg PO HS #30 tab 07/20/21 Ciprofloxacin HCl [Cipro] 500 mg PO BID 10 Days #20 tab 07/20/21 INSULIN ASPART (NovoLOG) [NovoLOG 6 units SQ AC-TID #0 07/20/21 (formulary)] Insulin Glargine [Lantus Vial] 65 unit SQ HS #0 07/20/21 Valsartan [Diovan] 160 mg PO BID #60 tab 07/20/21 carvediloL [Coreg*] 12.5 mg PO BID-W/MEALS #60 tab 07/20/21 Allergies Allergy/AdvReac Type Severity Reaction Status Date / Time Iodinated Contrast Media Allergy Swelling, Verified 07/23/21 17:17 [Iodinated Contrast Media - SHORTNESS IV Dye] OF BREATH latex Allergy Rash/Hives Verified 07/23/21 17:17 talc Allergy Rash/Hives Verified 07/23/21 17:17 adhesive tape AdvReac blisters Verified 07/23/21 17:17 amlodipine AdvReac ankle Verified 07/23/21 17:17 swelling hydralazine AdvReac Diarrhea Verified 07/23/21 17:17 metal Allergy Rash/Hives Uncoded 07/23/21 17:17 Review of Systems ROS Statement: Those systems with pertinent positive or pertinent negative responses have been documented in the HPI. ROS Other: All systems not noted in ROS Statement are negative. Constitutional: Denies: fever Eyes: Denies: eye pain ENT: Denies: ear pain Respiratory: Denies: cough Cardiovascular: Denies: chest pain Endocrine: Denies: fatigue Gastrointestinal: Denies: abdominal pain Genitourinary: Denies: dysuria Musculoskeletal: Denies: back pain Skin: Reports: as per HPI Neurological: Denies: weakness Past Medical History Past Medical History: Coronary Artery Disease (CAD), CVA/TIA, Diabetes Mellitus, Eye Disorder, Hearing Disorder / Deafness, Hypertension, Liver Disease, Myocardial Infarction ([place]), Osteoarthritis (OA), Sleep Apnea/CPAP/BIPAP, Sync ope, Thyroid Disorder Additional Past Medical History / Comment(s): IDDM type II, neuropathy knees down bilaterally, ischemic cardiopmyopathy, 2009 small CVA with occasional word finding difficulty, R eye retinal bleed with some vision loss, bilateral diabetic retinopathy, fatty liver, chronic back pain, DDD< mild central canal stenosis, migraines, osteoporosis, UTI, bilateral tinnitis, BROCK no longer tolerates Cpap, benign thyroid nodules, CHI age 14, sycopal episodes as a child, sinus problems, wounds on feet Last Myocardial Infarction Date:: 07/2020 History of Any Multi-Drug Resistant Organisms: None Reported Past Surgical History: Breast Surgery, Heart Catheterization With Stent, Hysterectomy, Orthopedic Surgery, Tubal Ligation Additional Past Surgical History / Comment(s): PCI with stents in 06/2020 and 07/2020, several thyroid gland bxs, bilateral benign breast lumpectomies, D&c, bilateral feet 2 hammer toes each, R knee arthroscopy, low back injections, TTT, colonoscopies, bilateral cataract removals. Past Anesthesia/Blood Transfusion Reactions: No Reported Reaction, Motion Sickness Additional Past Anesthesia/Blood Transfusion Reaction / Comment(s): hypotension/memory problems Date of Last Stent Placement:: 2019 Past Psychological History: Anxiety, Bipolar, Depression Smoking Status: Never smoker Past Alcohol Use History: None Reported Past Drug Use History: None Reported - Past Family History Father Family Medical History: Cancer Additional Family Medical History / Comment(s): Father had lymphoma. He had LUNG, BONE, THROAT AND MOUTH CANCER Brother(s) Family Medical History: Myocardial Infarction ([place]) Additional Family Medical History / Comment(s): Muscle Disease, Rheumatic fever at 2 years old Mother Family Medical History: Cancer Additional Family Medical History / Comment(s): lung cancer- mother. She at the age of 79yrs from esophageal valencia after radiation-unable to eat. Patient states "mother had aneurysm". General Exam Limitations: no limitations General appearance: alert, in no apparent distress Head exam: Present: normocephalic Eye exam: Present: normal appearance Respiratory exam: Present: normal lung sounds bilaterally Cardiovascular Exam: Present: regular rate, normal rhythm Expanded Peripheral pulses: 2+: Dorsalis Pedis (L) GI/Abdominal exam: Present: soft. Absent: tenderness Extremities exam: Present: other (Left second toe with black discoloration. Erythema of the distal foot, mild) Neurological exam: Present: alert Psychiatric exam: Present: normal affect, normal mood Skin exam: Present: normal color Course Vital Signs 07/23/21 07/23/21 17:17 19:08 Temperature 98 F Pulse Rate 80 79 Respiratory 18 18 Rate Blood Pressure 148/69 201/85 O2 Sat by Pulse 97 96 Oximetry Medical Decision Making - Medical Decision Making Patient reevaluated. Patient and family updated. - Lab Data Result diagrams: 07/23/21 18:09 07/23/21 18:09 Lab Results 07/23/21 07/23/21 07/23/21 Range/Units 18:09 18:09 18:09 WBC 13.6 H (3.8-10.6) k/uL RBC 4.04 (3.80-5.40) m/uL Hgb 11.2 L (11.4-16.0) gm/dL Hct 33.9 L (34.0-46.0) % MCV 84.0 (80.0-100.0) fL MCH 27.8 (25.0-35.0) pg MCHC 33.1 (31.0-37.0) g/dL RDW 14.5 (11.5-15.5) % Plt Count 387 (150-450) k/uL MPV 7.4 Neutrophils % 78 % Lymphocytes % 11 % Monocytes % 7 % Eosinophils % 3 % Basophils % 0 % Neutrophils # 10.6 H (1.3-7.7) k/uL Lymphocytes # 1.5 (1.0-4.8) k/uL Monocytes # 0.9 (0-1.0) k/uL Eosinophils # 0.4 (0-0.7) k/uL Basophils # 0.1 (0-0.2) k/uL PT 9.6 (9.0-12.0) sec INR 0.9 (<1.2) APTT 22.3 (22.0-30.0) sec Sodium 136 L (137-145) mmol/L Potassium 5.7 H (3.5-5.1) mmol/L Chloride 106 (98-107) mmol/L Carbon Dioxide 21 L (22-30) mmol/L Anion Gap 9 mmol/L BUN 28 H (7-17) mg/dL Creatinine 0.97 (0.52-1.04) mg/dL Est GFR (CKD-EPI)AfAm 67 (>60 ml/min/1.73 sqM) Est GFR (CKD-EPI)NonAf 58 (>60 ml/min/1.73 sqM) Glucose 281 H (74-99) mg/dL Plasma Lactic Acid Carlos (0.7-2.0) mmol/L Calcium 10.9 H (8.4-10.2) mg/dL Total Bilirubin 0.5 (0.2-1.3) mg/dL AST 25 (14-36) U/L ALT 42 H (4-34) U/L Alkaline Phosphatase 226 H (38-126) U/L Total Protein 6.6 (6.3-8.2) g/dL Albumin 3.7 (3.5-5.0) g/dL 07/23/21 Range/Units 18:09 WBC (3.8-10.6) k/uL RBC (3.80-5.40) m/uL Hgb (11.4-16.0) gm/dL Hct (34.0-46.0) % MCV (80.0-100.0) fL MCH (25.0-35.0) pg MCHC (31.0-37.0) g/dL RDW (11.5-15.5) % Plt Count (150-450) k/uL MPV Neutrophils % % Lymphocytes % % Monocytes % % Eosinophils % % Basophils % % Neutrophils # (1.3-7.7) k/uL Lymphocytes # (1.0-4.8) k/uL Monocytes # (0-1.0) k/uL Eosinophils # (0-0.7) k/uL Basophils # (0-0.2) k/uL PT (9.0-12.0) sec INR (<1.2) APTT (22.0-30.0) sec Sodium (137-145) mmol/L Potassium (3.5-5.1) mmol/L Chloride (98-107) mmol/L Carbon Dioxide (22-30) mmol/L Anion Gap mmol/L BUN (7-17) mg/dL Creatinine (0.52-1.04) mg/dL Est GFR (CKD-EPI)AfAm (>60 ml/min/1.73 sqM) Est GFR (CKD-EPI)NonAf (>60 ml/min/1.73 sqM) Glucose (74-99) mg/dL Plasma Lactic Acid Carlos 1.0 (0.7-2.0) mmol/L Calcium (8.4-10.2) mg/dL Total Bilirubin (0.2-1.3) mg/dL AST (14-36) U/L ALT (4-34) U/L Alkaline Phosphatase (38-126) U/L Total Protein (6.3-8.2) g/dL Albumin (3.5-5.0) g/dL - Radiology Data Radiology results: image reviewed (X-ray shows no evidence of osteomyelitis) Disposition Clinical Impression: Gangrene of toe of left foot Disposition: ADMITTED IP TO THIS [facility] Condition: Serious Is patient prescribed a controlled substance at d/c from ED?: No Referrals: Boris Galeano MD [Primary Care Provider] - 1-2 days Decision Time: 20:00
[2021-07-23 18:26] LABS: Basophils # (A) 0.1 k/uL (0-0.2); Basophils % (A) 0 %; Eosinophils # (A) 0.4 k/uL (0-0.7); Eosinophils % (A) 3 %; HCT 33.9 % (34.0-46.0); HGB 11.2 gm/dL (11.4-16.0); Lymphocytes # (A) 1.5 k/uL (1.0-4.8); Lymphocytes % (A) 11 %; MCH 27.8 pg (25.0-35.0); MCHC 33.1 g/dL (31.0-37.0); Mean Platelet Volume 7.4; Monocytes # (A) 0.9 k/uL (0-1.0); Monocytes % (A) 7 %; Neutrophils # (A) 10.6 k/uL (1.3-7.7); Neutrophils % (A) 78 %; Platelet Count 387 k/uL (150-450); RBC 4.04 m/uL (3.80-5.40); RDW 14.5 % (11.5-15.5); WBC 13.6 k/uL (3.8-10.6)
[2021-07-23 18:39] LABS: Albumin 3.7 g/dL (3.5-5.0); Calcium 10.9 mg/dL (8.4-10.2); Potassium 5.7 mmol/L (3.5-5.1); Total Bilirubin 0.5 mg/dL (0.2-1.3); Total Protein 6.6 g/dL (6.3-8.2)
[2021-07-23 18:45] LABS: INR 0.9 (<1.2); Partial Thromboplastin Time 22.3 sec (22.0-30.0); Prothrombin Time 9.6 sec (9.0-12.0)
--- NOTE | 2021-07-23 19:05 | XR ---
EXAMINATION TYPE: XR foot complete LT DATE OF EXAM: 07/23/2021 COMPARISON: 07/18/2021 HISTORY: Second toe ulcer. TECHNIQUE: 3 views FINDINGS: There is old oblique fracture distal shaft of the fifth metatarsal. I see no acute fracture nor dislocation. I see no focal bone destruction. The second toe is intact. There is plantar calcane al spurring. IMPRESSION: Old fracture fifth metatarsal. No evidence of osteomyelitis. No adverse change compared t o recent exam.
[2021-07-23] MEDS ORDERED: NALOXONE 0.4 MG/ML 1 ML VIAL IV PRN (20:00)
[2021-07-23] MEDS ORDERED: DOCUSATE 100 MG CAP PO PRN (22:06)
[2021-07-23] MEDS ORDERED: LORATADINE 10 MG TAB PO PRN (22:06)
[2021-07-23] MEDS ORDERED: NITROGLYCERIN SL TABS 0.4 MG TAB SUBLINGUAL PRN (22:06)
[2021-07-24 07:04] LABS: Glucose,Whole Blood 254 mg/dL (75-99)
[2021-07-24] MEDS: LEVOTHYROXINE 50 MCG TAB PO SCH (07:18)
[2021-07-24] MEDS: GLIMEPIRIDE 4 MG TAB PO SCH (07:18)
[2021-07-24] MEDS: carvediloL 12.5 MG TAB PO SCH ×2 (07:19→16:52)
[2021-07-24] MEDS: INSULIN ASPART (NovoLOG) 100 UNIT/ML VIAL SQ SCH ×6 (07:19→16:53)
[2021-07-24] MEDS: ASPIRIN 81 MG PO SCH (08:36)
[2021-07-24] MEDS: ARIPiprazole 5 MG TAB PO SCH (08:36)
[2021-07-24] MEDS: CALCIUM CARBONATE 500 MG CHEWABLE PO SCH (08:36)
[2021-07-24] MEDS: CHOLECALCIFEROL 25 MCG (1000 IU) TABLET PO SCH (08:36)
[2021-07-24] MEDS: LIOTHYRONINE SODIUM 5 MCG TAB PO SCH (08:37)
[2021-07-24] MEDS: GABAPENTIN 300 MG CAP PO SCH ×3 (08:37→20:53)
[2021-07-24] MEDS: GENTAMICIN 0.1% CREAM 15 GM TUBE TOPICAL SCH ×2 (08:37→20:56)
[2021-07-24] MEDS: VALSARTAN 160 MG TAB PO SCH ×2 (08:37→20:53)
[2021-07-24] MEDS: TICAGRELOR 90 MG TAB PO SCH ×2 (08:37→20:54)
[2021-07-24] MEDS: SERTRALINE 50 MG TAB PO SCH (08:37)
[2021-07-24 11:20] LABS: Glucose,Whole Blood 125 mg/dL (75-99)
[2021-07-24] MEDS ORDERED: PIPERACILLIN-TAZOBACTAM 3.375 GM in SODIUM CHLORIDE 0.9% 100 ML IVPB SCH ×2 (14:00→20:00)
[2021-07-24 16:22] LABS: Glucose,Whole Blood 297 mg/dL (75-99)
--- NOTE | 2021-07-24 17:12 | P.HPIM ---
History of Present Illness H&P Date: 07/24/21 Chief Complaint: Left toe infection Patient is a 71-year-old female coronary artery disease with history of stent placement on 07/16/2021, coronary artery disease, diabetes type 2 uncontrolled, hypertension, hyperlipidemia, peripheral vascular disease, obstructive sleep apnea, morbid obesity with BMI 48.4 presents to ER with complaints of left second toe infection. Patient was treated with antibiotics while in the hospital recently. Bone scan was negative for any osteomyelitis. Wound cultures were growing Pseudomonas. Patient was discharged on 07/20/2021. Patient was continued on cefepime while in the hospital. Patient does go to the wound care center. Patient does have history of diabetic peripheral neuropathy. Foot x-ray showed old fracture of the metatarsal. No evidence of osteo- mellitus. No adverse change compared to old exam. Laboratory data showed WBC 13.6 hemoglobin 11.2 and platelets 387 Sodium 136 potassium 5.7 chloride 106 bicarb is 21 BUN 28 creatinine 0.97 and blood sugar is 281 Review of Systems Constitutional: Patient denies any fever or chills . No generalized weakness or weight loss. Abdomen: Patient denied nausea vomiting and diarrhea and abdominal pain. Cardiovascular: Patient denies any chest pain or short of breath no palpitations. Respiratory: patient denied any cough is from production. No shortness of breath Neurologic: Patient denied any numbness or tingling headache. Musculoskeletal: Patient denies any complaints of joint swelling or deformity. Left second toe infection Skin: Negative Psychiatric: Negative Endocrine: No heat or cold intolerance. No recent weight gain. Genitourinary: No dysuria or hematuria. All other 14 point ROS negative except the above Past Medical History Past Medical History: Coronary Artery Disease (CAD), CVA/TIA, Diabetes Mellitus, Eye Disorder, Hearing Disorder / Deafness, Hypertension, Liver Disease, Myocardial Infarction ([place]), Osteoarthritis (OA), Sleep Apnea/CPAP/BIPAP, Syncop e, Thyroid Disorder Additional Past Medical History / Comment(s): IDDM type II, neuropathy knees down bilaterally, ischemic cardiopmyopathy, 2009 small CVA with occasional word finding difficulty, R eye retinal bleed with some vision loss, bilateral diabetic retinopathy, fatty liver, chronic back pain, DDD< mild central canal stenosis, migraines, osteoporosis, UTI, bilateral tinnitis, BROCK no longer tolerates Cpap, benign thyroid nodules, CHI age 14, sycopal episodes as a child, sinus problems, wounds on feet Last Myocardial Infarction Date:: 07/2020 History of Any Multi-Drug Resistant Organisms: None Reported Past Surgical History: Breast Surgery, Heart Catheterization With Stent, Hysterectomy, Orthopedic Surgery, Tubal Ligation Additional Past Surgical History / Comment(s): PCI with stents in 06/2020 and 07/2020, several thyroid gland bxs, bilateral benign breast lumpectomies, D&c, bilateral feet 2 hammer toes each, R knee arthroscopy, low back injections, TTT, colonoscopies, bilateral cataract removals. Past Anesthesia/Blood Transfusion Reactions: No Reported Reaction, Motion Sickness Additional Past Anesthesia/Blood Transfusion Reaction / Comment(s): hypotension/memory problems Date of Last Stent Placement:: 2019 Past Psychological History: Anxiety, Bipolar, Depression Additional Psychological History / Comment(s): Pt resides with her spouse, mango and son and grandson. Pt is primary caregiver for her spouse who has brain atrophy. Her mango works from home and helps out if needed. Pt uses walker and wheelchair. Pt's mango or son take her to appts. House is 2 levels. They have a ramp. Smoking Status: Never smoker Past Alcohol Use History: None Reported Past Drug Use History: None Reported - Past Family History Father Family Medical History: Cancer Additional Family Medical History / Comment(s): Father had lymphoma. He had LUNG, BONE, THROAT AND MOUTH CANCER Brother(s) Family Medical History: Myocardial Infarction ([place]) Additional Family Medical History / Comment(s): Muscle Disease, Rheumatic fever at 2 years old Mother Family Medical History: Cancer Additional Family Medical History / Comment(s): lung cancer- mother. She at the age of 79yrs from esophageal valencia after radiation-unable to eat. Patient states "mother had aneurysm". Medications and Allergies Home Medications Medication Instructions Recorded Confirmed Type Levothyroxine Sodium [Synthroid] 50 mcg PO AC-BRKFST 08/21/17 07/23/21 History Cetirizine HCl [Zyrtec] 10 mg PO DAILY PRN 05/06/20 07/23/21 History Liothyronine Sodium [Cytomel] 5 mcg PO DAILY 05/06/20 07/23/21 History Sertraline HCl [Zoloft] 50 mg PO DAILY 05/06/20 07/23/21 History Calcium Carbonate [Calcium] 600 mg PO DAILY 07/15/20 07/23/21 History Docusate [Colace] 100 mg PO BID PRN 07/15/20 07/23/21 History Aspirin 81 mg PO DAILY #30 chew 08/01/20 07/23/21 Rx Ticagrelor [Brilinta] 90 mg PO BID #60 tab 08/01/20 07/23/21 Rx Cholecalciferol (Vitamin D3) 125 mcg PO DAILY 02/18/21 07/23/21 History [Vitamin D3 (5000 Iu)] INSULIN ASPART (NovoLOG) [NovoLOG See Protocol SQ AC-TID 02/18/21 07/23/21 History (formulary)] Gabapentin 300 mg PO TID 04/07/21 07/23/21 History Glimepiride [Amaryl] 4 mg PO AC-BRKFST 04/07/21 07/23/21 History ARIPiprazole [Abilify] 5 mg PO DAILY 07/16/21 07/23/21 History Diclofenac Sodium Gel [Voltaren 4 gm TOPICAL QID PRN 07/16/21 07/23/21 History Gel] Gentamicin 0.1% Cream 1 applic TOPICAL BID 07/16/21 07/23/21 History Nitroglycerin Sl Tabs [Nitrostat] 0.4 mg SL Q5M PRN 07/16/21 07/23/21 History rOPINIRole HCL [Requip] 0.5 mg PO HS 07/16/21 07/23/21 History Atorvastatin [Lipitor] 80 mg PO HS #30 tab 07/20/21 07/23/21 Rx Ciprofloxacin HCl [Cipro] 500 mg PO BID 10 Days #20 tab 07/20/21 07/23/21 Rx Insulin Glargine [Lantus Vial] 65 unit SQ HS #0 07/20/21 07/23/21 Rx Valsartan [Diovan] 160 mg PO BID #60 tab 07/20/21 07/23/21 Rx carvediloL [Coreg*] 12.5 mg PO BID-W/MEALS #60 tab 07/20/21 07/23/21 Rx INSULIN ASPART (NovoLOG) [NovoLOG 6 units SQ AC-TID 07/23/21 07/23/21 History (formulary)] Allergies Allergy/AdvReac Type Severity Reaction Status Date / Time Iodinated Contrast Media Allergy Swelling, Verified 07/23/21 20:39 [Iodinated Contrast Media - SHORTNESS IV Dye] OF BREATH latex Allergy Rash/Hives Verified 07/23/21 20:39 talc Allergy Rash/Hives Verified 07/23/21 20:39 adhesive tape AdvReac blisters Verified 07/23/21 20:39 amlodipine AdvReac ankle Verified 07/23/21 20:39 swelling hydralazine AdvReac Diarrhea Verified 07/23/21 20:39 metal Allergy Rash/Hives Uncoded 07/23/21 20:39 Physical Exam Vitals: Vital Signs Temp Pulse Pulse Resp BP BP Pulse Ox 07/24/21 07:50 98.5 F 85 18 153/61 96 07/24/21 01:23 98.7 F 84 18 179/83 94 L 07/23/21 20:20 98.0 F 86 18 188/68 97 07/23/21 19:08 79 18 201/85 96 07/23/21 17:17 98 F 80 18 148/69 97 Intake and Output 07/23/21 07/24/21 07/24/21 22:59 06:59 14:59 Other: # Voids 0 # Bowel Movements 0 Weight 136.078 kg PHYSICAL EXAMINATION: GENERAL: Comfortably lying up in the bed appears to be no acute distress. Morbidly Obese HEENT: Pupils are round and equally reacting to light. EOMI. No scleral icterus. No conjunctival pallor. CARDIOVASCULAR: S1 and S2 present. No murmurs, rubs, or gallops. PULMONARY: Bilateral breath sounds positive. Diminshed at bases.No wheezing, mild crackles at bases. ABDOMEN: Soft,non -tender, normal bowel sounds. No guarding or rigidity. MUSCULOSKELETAL: No joint swelling or deformity. EXTREMITIES: No edema. Examination of the left second toe is discolored and dark., positive for tenderness. NEUROLOGICAL: Gross neurological examination did not reveal any focal deficits. SKIN:No rash, intact. Results CBC & Chem 7: 07/23/21 18:09 07/23/21 18:09 Labs: Abnormal Lab Results - Last 24 Hours (Table) 07/23/21 07/23/21 07/24/21 Range/Units 18:09 18:09 07:03 WBC 13.6 H (3.8-10.6) k/uL Hgb 11.2 L (11.4-16.0) gm/dL Hct 33.9 L (34.0-46.0) % Neutrophils # 10.6 H (1.3-7.7) k/uL Sodium 136 L (137-145) mmol/L Potassium 5.7 H (3.5-5.1) mmol/L Carbon Dioxide 21 L (22-30) mmol/L BUN 28 H (7-17) mg/dL Glucose 281 H (74-99) mg/dL POC Glucose (mg/dL) 254 H (75-99) mg/dL Calcium 10.9 H (8.4-10.2) mg/dL ALT 42 H (4-34) U/L Alkaline Phosphatase 226 H (38-126) U/L Thrombosis Risk Factor Assmnt - DVT/VTE Prophylaxis DVT/VTE Prophylaxis: Pharmacologic Prophylaxis ordered - Choose All That Apply Any of the Below Risk Factors Present?: Yes Each Factor Represents 1 point: Medical pt on bed rest Other Risk Factors: Yes Each Risk Factor Represents 2 Points: Age 61-74 years Thrombosis Risk Factor Assessment Total Risk Factor Score: 3 Thrombosis Risk Factor Assessment Level: Moderate Risk Assessment and Plan Assessment: Left second toe gangrenous changes with diabetic foot infection. Recent cul tures growing Pseudomonas and staph aureus. NSTEMI status post stenting of LAD on 07/16/2021 History of coronary artery disease status post stenting Hypertension Diabetes mellitus2 with hyperglycemia and uncontrolled. Diabetic retinopathy and peripheral neuropathy Hypertension Multiple joint osteoarthritis Obstructive sleep apnea noncompliant with CPAP Ischemic cardiomyopathy History of CVA/TIA Obstructive sleep apnea noncompliant with CPAP Thyroid disorder Migraine headaches Morbid obesity with BMI of 48.4 Mild protein calorie malnutrition Osteoporosis Bilateral tinnitus Bilateral toe wounds Diabetic neuropathy Bilateral hammertoes History of right knee arthroplasty History of chronic low back pain History of hysterectomy Plan: Patient will be continued on antibiotics in the form of cefepime. Patient was given a dose of Zosyn initially. Continue with pain management and follow up culture reports. Vascular surgery and ID will be consulted. Continue with pain management Continue with home dose of insulin regimen insulin sliding scale for blood pressure control. Next and continue with aspirin, Brilinta and statins due to recent history of stent placement. Follow up closely. Prognosis is guarded this time. Time with Patient: Greater than 30
[2021-07-24 18:52] LABS: African American GFR (CKD) 60 (>60 ml/min/1.73 sqM); Anion Gap 9 mmol/L; Blood Urea Nitrogen 28 mg/dL (7-17); Calcium 10.3 mg/dL (8.4-10.2); Carbon Dioxide 22 mmol/L (22-30); Chloride 103 mmol/L (98-107); Glucose 272 mg/dL (74-99); Non-African American GFR(CKD) 52 (>60 ml/min/1.73 sqM); Sodium 134 mmol/L (137-145)
--- NOTE | 2021-07-24 19:41 | CONS ---
DATE OF CONSULTATION: 07/24/2021 This is a 71-year-old white female patient who came in with a history of left foot second toe gangrene changes. The patient was seen in the [facility]. She had debridement done and now her left second toe has gotten worse and there are gangrene changes and some redness noted on the dorsal aspect of the foot. MEDICAL HISTORY: Patient has a history of diabetes mellitus, sleep apnea, coronary artery disease. Patient recently had a coronary artery stent placed on Sunday. PAST SURGICAL HISTORY: Patient had breast surgery done, heart catheterization with stent placement, hysterectomy, bilateral benign breast lumpectomies, bilateral cataract surgery. PERSONAL HISTORY: Patient has MULTIPLE ALLERGIES: IODINE CONTRAST, LATEX, ADHESIVE TAPE, HYDRALAZINE, METAL AND TALC. PHYSICAL EXAMINATION: NECK: Supple. Trachea central. CHEST: Clear. ABDOMEN: Protuberant. Femorals are 2+. Patient has left foot second toe gangrene with some slight redness noted on the dorsal aspect of the foot. PLAN: Patient is on IV antibiotic and we will schedule her for left foot second toe amputation. Will follow with you. MMODL / IJN: [id number] / LAURA
[2021-07-24 19:52] LABS: Glucose,Whole Blood 272 mg/dL (75-99)
[2021-07-24] MEDS: ATORVASTATIN 80 MG TAB PO SCH (20:54)
[2021-07-24] MEDS: INSULIN DETEMIR (LEVEMIR) 100 UNIT/ML SYR SQ SCH (20:54)
[2021-07-24] MEDS: CEFEPIME 2 GM in SODIUM CHLORIDE 0.9% 100 ML IVPB SCH (23:19)
[2021-07-25] MEDS: HEPARIN SODIUM,PORCINE/PF 5,000 UNIT/0.5 ML SYRINGE SQ SCH ×3 (00:19→17:28)
[2021-07-25] MEDS: DICLOFENAC SODIUM GEL 100 GM TUBE TOPICAL PRN ×2 (01:17→19:22)
[2021-07-25 06:45] LABS: Glucose,Whole Blood 219 mg/dL (75-99)
[2021-07-25] MEDS: LEVOTHYROXINE 50 MCG TAB PO SCH (07:24)
[2021-07-25] MEDS: GLIMEPIRIDE 4 MG TAB PO SCH (07:24)
[2021-07-25] MEDS: ASPIRIN 81 MG PO SCH (07:25)
[2021-07-25] MEDS: LIOTHYRONINE SODIUM 5 MCG TAB PO SCH (07:25)
[2021-07-25] MEDS: TICAGRELOR 90 MG TAB PO SCH ×2 (07:25→21:11)
[2021-07-25] MEDS: CALCIUM CARBONATE 500 MG CHEWABLE PO SCH (07:25)
[2021-07-25] MEDS: SERTRALINE 50 MG TAB PO SCH (07:25)
[2021-07-25] MEDS: CHOLECALCIFEROL 25 MCG (1000 IU) TABLET PO SCH (07:25)
[2021-07-25] MEDS: ARIPiprazole 5 MG TAB PO SCH (07:25)
[2021-07-25] MEDS: GABAPENTIN 300 MG CAP PO SCH ×3 (07:25→21:11)
[2021-07-25] MEDS: VALSARTAN 160 MG TAB PO SCH ×2 (07:26→21:12)
[2021-07-25] MEDS: INSULIN ASPART (NovoLOG) 100 UNIT/ML VIAL SQ SCH ×6 (07:50→18:58)
[2021-07-25] MEDS: carvediloL 12.5 MG TAB PO SCH ×2 (07:51→17:29)
[2021-07-25] MEDS: CEFEPIME 2 GM in SODIUM CHLORIDE 0.9% 100 ML IVPB SCH ×2 (07:52→19:26)
[2021-07-25] MEDS: GENTAMICIN 0.1% CREAM 15 GM TUBE TOPICAL SCH ×2 (10:20→22:54)
[2021-07-25 10:56] LABS: Glucose,Whole Blood 63 mg/dL (75-99)
[2021-07-25 11:11] LABS: Glucose,Whole Blood 84 mg/dL (75-99)
[2021-07-25 13:09] LABS: Glucose,Whole Blood 80 mg/dL (75-99)
[2021-07-25 13:53] LABS: Glucose,Whole Blood 73 mg/dL (75-99)
[2021-07-25] MEDS ORDERED: DEXTROSE 50% SYRINGE 50 ML IVP STA (14:02)
[2021-07-25] MEDS: DEXTROSE 5%-0.9% NACL 1,000 ML IV SCH (14:17)
[2021-07-25 14:28] LABS: Basophils # (A) 0.05 X 10*3/uL (0.00-0.10); Basophils % (A) 0.4 %; Eosinophils # (A) 0.29 X 10*3/uL (0.04-0.35); Eosinophils % (A) 2.3 %; HCT 28.4 % (37.2-46.3); Lymphocytes % (A) 17.4 %; MCH 26.9 pg (27.0-32.0); MCHC 31.7 g/dL (32.0-37.0); Mean Platelet Volume 9.8 fL (9.5-12.2); Monocytes # (A) 1.17 X 10*3/uL (0.20-1.00); Monocytes % (A) 9.2 %; Neutrophils # (A) 8.88 X 10*3/uL (1.80-7.70); Neutrophils % (A) 70.1 %; Platelet Count 340 X 10*3/uL (140-440); RBC 3.34 X 10*6/uL (4.10-5.20); RDW 14.2 % (11.5-14.5); WBC 12.66 X 10*3/uL (4.50-10.00)
[2021-07-25 15:49] LABS: Glucose,Whole Blood 108 mg/dL (75-99)
[2021-07-25] MEDS ORDERED: LACTATED RINGERS 1,000 ML IV ONE (15:53)
[2021-07-25] MEDS ORDERED: ONDANSETRON 4 MG/2 ML VIAL ONE (16:03)
[2021-07-25] MEDS ORDERED: DEXAMETHASONE SOD PHOSPHATE 4 MG/ML 1 ML VIAL IVP ONE (16:07)
[2021-07-25] MEDS ORDERED: ONDANSETRON 4 MG/2 ML VIAL IVP ONE (16:07)
[2021-07-25 16:32] LABS: African American GFR (CKD) 57.7 (60.0-200.0); Anion Gap 6.9 mmol/L (4.00-12.00); BUN/Creat Ratio 28.18 Ratio (12.00-20.00); Calcium 9.3 mg/dL (8.7-10.3); Carbon Dioxide 20.1 mmol/L (21.6-31.8); Non-African American GFR(CKD) 49.8 (60.0-200.0)
[2021-07-25] MEDS ORDERED: KETAMINE 10 MG/ML 20 ML VIAL ONE (16:39)
[2021-07-25] MEDS ORDERED: MIDAZOLAM 2 MG/2 ML VIAL ONE (16:39)
[2021-07-25] MEDS ORDERED: LIDOCAINE 1% INJ 10MG/ML (20 ML MDV) SQ ONE (17:00)
[2021-07-25] MEDS ORDERED: HYDROmorphone 0.5 MG/0.5 ML SYRINGE IVP ONE (17:35)
[2021-07-25 17:44] LABS: Glucose,Whole Blood 105 mg/dL (75-99)
[2021-07-25 20:52] LABS: Glucose,Whole Blood 220 mg/dL (75-99)
[2021-07-25] MEDS: INSULIN DETEMIR (LEVEMIR) 100 UNIT/ML SYR SQ SCH (21:11)
[2021-07-25] MEDS: ATORVASTATIN 80 MG TAB PO SCH (21:11)
--- NOTE | 2021-07-25 22:55 | P.CONS ---
History of Present Illness - Reason for Consult Consult date: 07/25/21 left 2nd toe gangrene Requesting physician: Melba Lux - Chief Complaint left 2nd toe discoloration x few days - History of Present Illness History of present illness : Patient is 71-year-old female who was recently admitted at this facility in this patient who did have a chronic nonhealing wound on the dorsal aspect of her left second toe x-rays and bone scan were negative for any osteomyelitis patient had a local culture positive for MSSA and Pseudomonas aeruginosa along with Streptococcus agalactiae patient was discharged home last Sunday on oral Keflex and ciprofloxacin for the next 24 to 48 hours the daughter mentioned the left second toe started getting more darker in color and when she noticed that yesterday it was dry and black patient did have underlying neuropathy had not been complaining of some pressure but no significant pain but denies any history of any trauma to the left second toe with the symptom the patient presented to hospital 2 days ago patient denies having any fever or any chills denies having any chest pain or shortness of the cough no nausea no vomiting no abdominal pain or any diarrhea on presentation the hospital patient was afebrile no fever has been recorded subsequently patient did have a white count of 13 point 6 repeat is 12.6 BUN of 28 creatinine 1.07 blood culture has been obtained patient did have x-rays of the left foot which shows old fracture fifth metatarsal no evidence of osteomyelitis patient has been evaluated by vascular surgery and plan is for possible amputation of the left second toe patient has been started on cefepime infectious was consulted for further management of antibiotic therapy Review of system: CONSTITUTIONAL: Positive for weakness however the patient denies fever. EYES: No complaint. ENT: No complaint. RESPIRATORY: No complaint. CARDIOVASCULAR: No complaint. GENITOURINARY: No complaint. GASTROINTESTINAL: No complaint. MUSCULOSKELETAL: As per history of present illness. INTEGUMENTARY: As per history of present illness PSYCHOLOGIC: No complaint. ENDOCRINE: No complaint. NEUROLOGIC: No complaint. Past medical history : Reviewed, documented below Past surgical history : Reviewed, documented below Social history: Reviewed, documented below Medications: Reviewed, as documented below GENERAL DESCRIPTION: Elderly female lying in bed, no distress. No tachypnea or accessory muscle of respiration use. HEENT: Shows Pallor , no scleral icterus. Oral mucous membrane is dry. NECK: Trachea central, no thyromegaly. LUNGS: Unlabored breathing. Clear to auscultation anteriorly. No wheeze or crackle. HEART: S1, S2, regular rate and rhythm. ABDOMEN: Soft, no tenderness , guarding or rigidity EXTREMITIES: No edema of feet. Left second toe is dry necrotic base did have minimal swelling redness no drainage SKIN: No rash, no masses palpable. NEUROLOGICAL: The patient is awake, alert, oriented x3, mood and affect normal. LABS AND RADIOLOGY: Reviewed results see below Assessment : Patient with left second toe dry gangrene in this patient with chronic nonhealing wound on the dorsal aspect of the left second toe with a recent culture positive for MSSA strep and Pseudomonas x-ray and bone scan were negative for any osteomyelitis. Presenting with significant change within a few days possibly related to embolic phenomena rather than her worsening infection Plan: 1-await possible amputation of the left second toe and deep culture 2-cefepime 2 g every 12 hours 3-gentle IV fluid We will follow on clinical condition and cultures to further adjust medication if needed Thank you for this consultation we will follow the patient along with you Past Medical History Past Medical History: Coronary Artery Disease (CAD), CVA/TIA, Diabetes Mellitus, Eye Disorder, Hearing Disorder / Deafness, Hypertension, Liver Disease, Myocardial Infarction ([place]), Osteoarthritis (OA), Sleep Apnea/CPAP/BIPAP, Syncope, Thyroid Disorder Additional Past Medical History / Comment(s): IDDM type II, neuropathy knees down bilaterally, ischemic cardiopmyopathy, 2009 small CVA with occasional word finding difficulty, R eye retinal bleed with some vision loss, bilateral diabetic retinopathy, fatty liver, chronic back pain, DDD< mild central canal stenosis, migraines, osteoporosis, UTI, bilateral tinnitis, BROCK no longer tolerates Cpap, benign thyroid nodules, CHI age 14, sycopal episodes as a child, sinus problems, wounds on feet Last Myocardial Infarction Date:: 07/2020 History of Any Multi-Drug Resistant Organisms: None Reported Past Surgical History: Breast Surgery, Heart Catheterization With Stent, Hysterectomy, Orthopedic Surgery, Tubal Ligation Additional Past Surgical History / Comment(s): PCI with stents in 06/2020 and 07/2020, several thyroid gland bxs, bilateral benign breast lumpectomies, D&c, bilateral feet 2 hammer toes each, R knee arthroscopy, low back injections, TTT, colonoscopies, bilateral cataract removals. Past Anesthesia/Blood Transfusion Reactions: No Reported Reaction, Motion Sickness Additional Past Anesthesia/Blood Transfusion Reaction / Comm: hypotension/memory problems Date of Last Stent Placement:: 2019 Past Psychological History: Anxiety, Bipolar, Depression Additional Psychological History / Comment(s): Pt resides with her spouse, mango and son and grandson. Pt is primary caregiver for her spouse who has brain atrophy. Her mango works from home and helps out if needed. Pt uses walker and wheelchair. Pt's mango or son take her to appts. House is 2 levels. They have a ramp. Smoking Status: Never smoker Past Alcohol Use History: None Reported Past Drug Use History: None Reported - Past Family History Father Family Medical History: Cancer Additional Family Medical History / Comment(s): Father had lymphoma. He had LUNG, BONE, THROAT AND MOUTH CANCER Brother(s) Family Medical History: Myocardial Infarction ([place]) Additional Family Medical History / Comment(s): Muscle Disease, Rheumatic fever at 2 years old Mother Family Medical History: Cancer Additional Family Medical History / Comment(s): lung cancer- mother. She at the age of 79yrs from esophageal valencia after radiation-unable to eat. Patient states "mother had aneurysm". Medications and Allergies Home Medications Medication Instructions Recorded Confirmed Type Levothyroxine Sodium [Synthroid] 50 mcg PO AC-BRKFST 08/21/17 07/23/21 History Cetirizine HCl [Zyrtec] 10 mg PO DAILY PRN 05/06/20 07/23/21 History Liothyronine Sodium [Cytomel] 5 mcg PO DAILY 05/06/20 07/23/21 History Sertraline HCl [Zoloft] 50 mg PO DAILY 05/06/20 07/23/21 History Calcium Carbonate [Calcium] 600 mg PO DAILY 07/15/20 07/23/21 History Docusate [Colace] 100 mg PO BID PRN 07/15/20 07/23/21 History Aspirin 81 mg PO DAILY #30 chew 08/01/20 07/23/21 Rx Ticagrelor [Brilinta] 90 mg PO BID #60 tab 08/01/20 07/23/21 Rx Cholecalciferol (Vitamin D3) 125 mcg PO DAILY 02/18/21 07/23/21 History [Vitamin D3 (5000 Iu)] INSULIN ASPART (NovoLOG) [NovoLOG See Protocol SQ AC-TID 02/18/21 07/23/21 History (formulary)] Gabapentin 300 mg PO TID 04/07/21 07/23/21 History Glimepiride [Amaryl] 4 mg PO AC-BRKFST 04/07/21 07/23/21 History ARIPiprazole [Abilify] 5 mg PO DAILY 07/16/21 07/23/21 History Diclofenac Sodium Gel [Voltaren 4 gm TOPICAL QID PRN 07/16/21 07/23/21 History Gel] Gentamicin 0.1% Cream 1 applic TOPICAL BID 07/16/21 07/23/21 History Nitroglycerin Sl Tabs [Nitrostat] 0.4 mg SL Q5M PRN 07/16/21 07/23/21 History rOPINIRole HCL [Requip] 0.5 mg PO HS 07/16/21 07/23/21 History Atorvastatin [Lipitor] 80 mg PO HS #30 tab 07/20/21 07/23/21 Rx Ciprofloxacin HCl [Cipro] 500 mg PO BID 10 Days #20 tab 07/20/21 07/23/21 Rx Insulin Glargine [Lantus Vial] 65 unit SQ HS #0 07/20/21 07/23/21 Rx Valsartan [Diovan] 160 mg PO BID #60 tab 07/20/21 07/23/21 Rx carvediloL [Coreg*] 12.5 mg PO BID-W/MEALS #60 tab 07/20/21 07/23/21 Rx INSULIN ASPART (NovoLOG) [NovoLOG 6 units SQ AC-TID 07/23/21 07/23/21 History (formulary)] Allergies Allergy/AdvReac Type Severity Reaction Status Date / Time Iodinated Contrast Media Allergy Swelling, Verified 07/23/21 20:39 [Iodinated Contrast Media - SHORTNESS IV Dye] OF BREATH latex Allergy Rash/Hives Verified 07/23/21 20:39 talc Allergy Rash/Hives Verified 07/23/21 20:39 adhesive tape AdvReac blisters Verified 07/23/21 20:39 amlodipine AdvReac ankle Verified 07/23/21 20:39 swelling hydralazine AdvReac Diarrhea Verified 07/23/21 20:39 metal Allergy Rash/Hives Uncoded 07/23/21 20:39 Physical Exam Vitals: Vital Signs Temp Pulse Resp BP Pulse Ox 07/25/21 07:39 98.2 F 70 18 111/70 95 07/25/21 02:00 99.9 F H 76 18 138/60 92 L 07/24/21 17:42 98.2 F 72 18 188/69 98 07/24/21 14:00 98.7 F 89 19 181/73 98 Intake and Output 07/24/21 07/25/21 07/25/21 22:59 06:59 14:59 Intake Total 480 Balance 480 Intake: Oral 480 Other: # Voids 3 3 Results CBC & Chem 7: 07/25/21 05:14 07/25/21 05:14 Labs: Abnormal Lab Results - Last 24 Hours (Table) 07/24/21 07/24/21 07/24/21 Range/Units 11:19 16:21 17:34 Sodium 134 L (137-145) mmol/L BUN 28 H (7-17) mg/dL Creatinine 1.07 H (0.52-1.04) mg/dL Glucose 272 H (74-99) mg/dL POC Glucose (mg/dL) 125 H 297 H (75-99) mg/dL Calcium 10.3 H (8.4-10.2) mg/dL 07/24/21 07/25/21 Range/Units 19:50 06:43 Sodium (137-145) mmol/L BUN (7-17) mg/dL Creatinine (0.52-1.04) mg/dL Glucose (74-99) mg/dL POC Glucose (mg/dL) 272 H 219 H (75-99) mg/dL Calcium (8.4-10.2) mg/dL Microbiology - Last 24 Hours (Table) 07/23/21 17:50 Blood Culture - Preliminary Blood No Growth after 24 hours 07/23/21 18:09 Blood Culture - Preliminary Blood No Growth after 24 hours
--- NOTE | 2021-07-25 23:28 | OP ---
OPERATIVE REPORT PREOPERATIVE DIAGNOSIS: Wet gangrene of the left foot second toe. POSTOPERATIVE DIAGNOSIS: Wet gangrene of the left foot second toe. OPERATION: Ray amputation of the left foot second toe at metatarsophalangeal joint. DESCRIPTION: This patient was brought to the operating room under local and IV sedation. Left foot was prepped and draped in usual sterile manner. Elliptical incision was made on the dorsal aspect of the foot, went circumferentially around the second toe up to the plantar aspect, deepened through subcutaneous tissue and tendons, divided at the plantar and dorsal aspect of the foot. Then we reached the metatarsophalangeal joint. After that the toe was kept in flexion position and we divided the tendon on the plantar aspect, from the metatarsophalangeal joint. The specimen was removed and sent for deep culture. At this point, no active bleeding was noted. Wound was irrigated with hydrogen peroxide and saline. Incision was closed in one layer using 3-0 Vicryl. Wound was kept open and Aquacel Silver was applied to the wound. Dressing was applied. Patient tolerated the procedure well and was sent to the recovery room in satisfactory condition. MMODL / IJN: [id number] /
[2021-07-26] MEDS: HEPARIN SODIUM,PORCINE/PF 5,000 UNIT/0.5 ML SYRINGE SQ SCH ×4 (01:02→23:50)
[2021-07-26 06:54] LABS: Glucose,Whole Blood 236 mg/dL (75-99)
[2021-07-26] MEDS: carvediloL 12.5 MG TAB PO SCH ×2 (08:39→16:01)
[2021-07-26] MEDS: LEVOTHYROXINE 50 MCG TAB PO SCH (08:39)
[2021-07-26] MEDS: GLIMEPIRIDE 4 MG TAB PO SCH (08:40)
[2021-07-26] MEDS: INSULIN ASPART (NovoLOG) 100 UNIT/ML VIAL SQ SCH ×6 (08:40→17:02)
[2021-07-26] MEDS: CEFEPIME 2 GM in SODIUM CHLORIDE 0.9% 100 ML IVPB SCH ×2 (08:43→21:45)
[2021-07-26 10:02] LABS: Basophils # (A) 0.02 X 10*3/uL (0.00-0.10); Basophils % (A) 0.1 %; Eosinophils # (A) 0.01 X 10*3/uL (0.04-0.35); Eosinophils % (A) 0.1 %; HCT 30.6 % (37.2-46.3); HGB 9.6 g/dL (12.0-15.0); Lymphocytes # (A) 1.11 X 10*3/uL (0.90-5.00); Lymphocytes % (A) 6.9 %; MCHC 31.4 g/dL (32.0-37.0); Mean Platelet Volume 9.8 fL (9.5-12.2); Monocytes % (A) 5.6 %; Neutrophils # (A) 13.93 X 10*3/uL (1.80-7.70); Neutrophils % (A) 86.5 %; Platelet Count 382 X 10*3/uL (140-440); RBC 3.56 X 10*6/uL (4.10-5.20); RDW 14.2 % (11.5-14.5)
--- NOTE | 2021-07-26 11:06 | P.PN ---
Subjective Progress Note Date: 07/25/21 Patient is a 71-year-old female coronary artery disease with history of stent placement on 07/16/2021, coronary artery disease, diabetes type 2 uncontrolled, hypertension, hyperlipidemia, peripheral vascular disease, obstructive sleep apnea, morbid obesity with BMI 48.4 presents to ER with complaints of left second toe infection. Patient was treated with antibiotics while in the hospital recently. Bone scan was negative for any osteomyelitis. Wound cultures were growing Pseudomonas. Patient was discharged on 07/20/2021. Patient was continued on cefepime while in the hospital. Patient does go to the wound care center. Patient does have history of diabetic peripheral neuropathy. Foot x-ray showed old fracture of the metatarsal. No evidence of osteo- mellitus. No adverse change compared to old exam. Laboratory data showed WBC 13.6 hemoglobin 11.2 and platelets 387 Sodium 136 potassium 5.7 chloride 106 bicarb is 21 BUN 28 creatinine 0.97 and blood sugar is 281 07/25/2021 Patient is awake alert and oriented 3. Sitting in a chair comfortably. Scheduled for left second toe amputation today. Patient was hypoglycemic this afternoon and was started on D5 normal saline. Continue with antibiotics cefepime as per ID recommendations. Next and laboratory data showed LBCD 12.6 hemoglobin 9.0 and platelets 340 BUN 31 and creatinine 1.1 blood sugar 232 in the a.m. Patient has been afebri le. No nausea vomiting or abdominal pain or diarrhea. No dysuria or hematuria. current medications reviewed. Objective - Vital Signs Vital signs: Vital Signs Temp 98 F 07/25/21 15:54 Pulse 83 07/25/21 15:54 Resp 16 07/25/21 15:54 BP 208/86 07/25/21 15:54 Pulse Ox 98 07/25/21 15:54 Intake & Output 07/24/21 07/25/21 07/25/21 18:59 06:59 18:59 Intake Total 480 150 Balance 480 150 Intake: IV 150 Oral 480 Other: # Voids 3 3 - Exam PHYSICAL EXAMINATION: GENERAL: Comfortably lying up in the bed appears to be no acute distress. M orbidly Obese HEENT: Pupils are round and equally reacting to light. EOMI. No scleral icterus. No conjunctival pallor. CARDIOVASCULAR: S1 and S2 present. No murmurs, rubs, or gallops. PULMONARY: Bilateral breath sounds positive. Diminshed at bases.No wheezing, mild crackles at bases. ABDOMEN: Soft,non -tender, normal bowel sounds. No guarding or rigidity. MUSCULOSKELETAL: No joint swelling or deformity. EXTREMITIES: No edema. Examination of the left second toe is discolored and dark., positive for tenderness. NEUROLOGICAL: Gross neurological examination did not reveal any focal deficits. SKIN:No rash, intact. - Labs CBC & Chem 7: 07/26/21 05:58 07/25/21 05:14 Labs: Abnormal Lab Results - Last 24 Hours (Table) 07/24/21 07/24/21 07/25/21 Range/Units 17:34 19:50 05:14 WBC 12.66 H (4.50-10.00) X 10*3/uL RBC 3.34 L (4.10-5.20) X 10*6/uL Hgb 9.0 L (12.0-15.0) g/dL Hct 28.4 L (37.2-46.3) % MCH 26.9 L (27.0-32.0) pg MCHC 31.7 L (32.0-37.0) g/dL Immature Gran # 0.07 H (0.00-0.04) X 10*3/uL Neutrophils # 8.88 H (1.80-7.70) X 10*3/uL Monocytes # 1.17 H (0.20-1.00) X 10*3/uL Sodium 134 L (137-145) mmol/L Carbon Dioxide (21.6-31.8) mmol/L BUN 28 H (7-17) mg/dL Creatinine 1.07 H (0.52-1.04) mg/dL Est GFR (CKD-EPI)AfAm (60.0-200.0) Est GFR (CKD-EPI)NonAf (60.0-200.0) BUN/Creatinine Ratio (12.00-20.00) Ratio Glucose 272 H (74-99) mg/dL POC Glucose (mg/dL) 272 H (75-99) mg/dL Calcium 10.3 H (8.4-10.2) mg/dL 07/25/21 07/25/21 07/25/21 Range/Units 05:14 06:43 10:52 WBC (4.50-10.00) X 10*3/uL RBC (4.10-5.20) X 10*6/uL Hgb (12.0-15.0) g/dL Hct (37.2-46.3) % MCH (27.0-32.0) pg MCHC (32.0-37.0) g/dL Immature Gran # (0.00-0.04) X 10*3/uL Neutrophils # (1.80-7.70) X 10*3/uL Monocytes # (0.20-1.00) X 10*3/uL Sodium (137-145) mmol/L Carbon Dioxide 20.1 L (21.6-31.8) mmol/L BUN 31.0 H (7-17) mg/dL Creatinine (0.52-1.04) mg/dL Est GFR (CKD-EPI)AfAm 57.7 L (60.0-200.0) Est GFR (CKD-EPI)NonAf 49.8 L (60.0-200.0) BUN/Creatinine Ratio 28.18 H (12.00-20.00) Ratio Glucose 232 H (74-99) mg/dL POC Glucose (mg/dL) 219 H 63 L (75-99) mg/dL Calcium (8.4-10.2) mg/dL 07/25/21 07/25/21 Range/Units 13:51 15:46 WBC (4.50-10.00) X 10*3/uL RBC (4.10-5.20) X 10*6/uL Hgb (12.0-15.0) g/dL Hct (37.2-46.3) % MCH (27.0-32.0) pg MCHC (32.0-37.0) g/dL Immature Gran # (0.00-0.04) X 10*3/uL Neutrophils # (1.80-7.70) X 10*3/uL Monocytes # (0.20-1.00) X 10*3/uL Sodium (137-145) mmol/L Carbon Dioxide (21.6-31.8) mmol/L BUN (7-17) mg/dL Creatinine (0.52-1.04) mg/dL Est GFR (CKD-EPI)AfAm (60.0-200.0) Est GFR (CKD-EPI)NonAf (60.0-200.0) BUN/Creatinine Ratio (12.00-20.00) Ratio Glucose (74-99) mg/dL POC Glucose (mg/dL) 73 L 108 H (75-99) mg/dL Calcium (8.4-10.2) mg/dL Microbiology - Last 24 Hours (Table) 07/23/21 17:50 Blood Culture - Preliminary Blood No Growth after 24 hours 07/23/21 18:09 Blood Culture - Preliminary Blood No Growth after 24 hours Assessment and Plan Assessment: Left second toe gangrenous changes with diabetic foot infection. Recent cultures growing Pseudomonas and staph aureus. Recent NSTEMI status post stenting of LAD on 07/16/2021 History of coronary artery disease status post stenting Hypertension Diabetes mellitus2 with hyperglycemia and uncontrolled. Diabetic retinopathy and peripheral neuropathy Hypertension Multiple joint osteoarthritis Obstructive sleep apnea noncompliant with CPAP Ischemic cardiomyopathy History of CVA/TIA Obstructive sleep apnea noncompliant with CPAP Thyroid disorder Migraine headaches Morbid obesity with BMI of 48.4 Mild protein calorie malnutrition Osteoporosis Bilateral tinnitus Bilateral toe wounds Diabetic neuropathy Bilateral hammertoes History of right knee arthroplasty History of chronic low back pain History of hysterectomy Plan: Patient will be continued on antibiotics in the form of cefepime. Patient was given a dose of Zosyn initially. Continue with pain management and follow up culture reports. Vascular surgery and ID is following Patient is scheduled for left second toe amputation today.. Continue with pain management Continue with home dose of insulin regimen insulin sliding scale for blood pressure control. Next and continue with aspirin, Brilinta and statins due to recent history of stent placement. Follow up closely. Prognosis is guarded this time. Time with Patient: Greater than 30
[2021-07-26 11:19] LABS: Glucose,Whole Blood 226 mg/dL (75-99)
[2021-07-26 11:49] LABS: African American GFR (CKD) 51.9 (60.0-200.0); Anion Gap 12.1 mmol/L (4.00-12.00); BUN/Creat Ratio 27.5 Ratio (12.00-20.00); Calcium 9.7 mg/dL (8.7-10.3); Carbon Dioxide 18.9 mmol/L (21.6-31.8); Non-African American GFR(CKD) 44.8 (60.0-200.0); Potassium 5.4 mmol/L (3.5-5.5)
[2021-07-26] MEDS: CALCIUM CARBONATE 500 MG CHEWABLE PO SCH (11:56)
[2021-07-26] MEDS: ARIPiprazole 5 MG TAB PO SCH (11:56)
[2021-07-26] MEDS: CHOLECALCIFEROL 25 MCG (1000 IU) TABLET PO SCH (11:56)
[2021-07-26] MEDS: LIOTHYRONINE SODIUM 5 MCG TAB PO SCH (11:56)
[2021-07-26] MEDS: SERTRALINE 50 MG TAB PO SCH (11:56)
[2021-07-26] MEDS: TICAGRELOR 90 MG TAB PO SCH ×2 (11:56→22:38)
[2021-07-26] MEDS: ASPIRIN 81 MG PO SCH (11:56)
[2021-07-26] MEDS: GABAPENTIN 300 MG CAP PO SCH ×3 (11:56→21:45)
[2021-07-26] MEDS: GENTAMICIN 0.1% CREAM 15 GM TUBE TOPICAL SCH ×2 (11:57→21:46)
[2021-07-26] MEDS: VALSARTAN 160 MG TAB PO SCH ×2 (12:00→22:37)
--- NOTE | 2021-07-26 13:50 | PN ---
PROGRESS NOTE DATE OF SERVICE: 07/26/2021 REASON FOR FOLLOWUP: Left second toe gangrene. INTERVAL HISTORY: The patient is afebrile. The patient is currently feeling better. The patient is status post left second toe amputation. The patient tolerated the procedure. Pain is currently controlled. No chest pain, shortness of breath or cough. No abdominal pain or diarrhea. PHYSICAL EXAMINATION: Her blood pressure is 135/80 with a pulse of 65, temperature 98.1. She is 97% on room air. General description is an elderly female up in the chair in no distress. Respiratory system: Unlabored breathing, clear to auscultation anteriorly. Heart S1, S2. Regular rate and rhythm. Abdomen is soft, no tenderness. Left foot is currently dressed with no drainage on the dressing. LABS: Hemoglobin 9.8, white count 16.1. BUN of 33, creatinine is 1.2. DIAGNOSTIC IMPRESSION AND PLAN: Patient with not second toe gangrene in this patient status post amputation of the left second toe. Patient is covered with cefepime with the previous culture positive for MSSA and Pseudomonas and monitor clinical course closely. MMODL / IJN: [id number] /
[2021-07-26] MEDS: DEXTROSE 5%-0.9% NACL 1,000 ML IV SCH (15:58)
[2021-07-26 16:51] LABS: Glucose,Whole Blood 100 mg/dL (75-99)
--- NOTE | 2021-07-26 19:59 | PN ---
PROGRESS NOTE This is a 71-year-old white female patient who was seen on consult with left foot second toe gangrene with some cellulitis on the dorsal aspect of the foot. The patient was taken to surgery and underwent ray amputation of the left foot second toe. Today we changed the dressing. Incision is open. This is because of ray amputation. We irrigated the wound with saline. Aquacel Silver was applied to the wound. Dressing was applied. Culture is pending. Continue with IV antibiotic under the care of Infectious Disease. We will change the dressing on . Recommend non-weightbearing. MMODL / IJN: [id number] /
[2021-07-26 20:26] LABS: Glucose,Whole Blood 108 mg/dL (75-99)
[2021-07-26] MEDS: ATORVASTATIN 80 MG TAB PO SCH (21:45)
[2021-07-26] MEDS: INSULIN DETEMIR (LEVEMIR) 100 UNIT/ML SYR SQ SCH (21:45)
[2021-07-27 07:07] LABS: Glucose,Whole Blood 123 mg/dL (75-99)
[2021-07-27] MEDS: LEVOTHYROXINE 50 MCG TAB PO SCH (07:26)
[2021-07-27] MEDS: carvediloL 12.5 MG TAB PO SCH ×2 (07:27→16:03)
[2021-07-27] MEDS: GLIMEPIRIDE 4 MG TAB PO SCH (07:28)
[2021-07-27] MEDS: INSULIN ASPART (NovoLOG) 100 UNIT/ML VIAL SQ SCH ×6 (07:29→17:06)
[2021-07-27] MEDS: HEPARIN SODIUM,PORCINE/PF 5,000 UNIT/0.5 ML SYRINGE SQ SCH ×3 (07:30→23:32)
[2021-07-27] MEDS: CEFEPIME 2 GM in SODIUM CHLORIDE 0.9% 100 ML IVPB SCH ×2 (07:32→21:26)
[2021-07-27] MEDS: VALSARTAN 160 MG TAB PO SCH ×2 (08:43→21:27)
[2021-07-27] MEDS: TICAGRELOR 90 MG TAB PO SCH ×2 (08:43→21:27)
[2021-07-27] MEDS: ASPIRIN 81 MG PO SCH (08:43)
[2021-07-27] MEDS: LIOTHYRONINE SODIUM 5 MCG TAB PO SCH (08:43)
[2021-07-27] MEDS: ARIPiprazole 5 MG TAB PO SCH (08:43)
[2021-07-27] MEDS: CALCIUM CARBONATE 500 MG CHEWABLE PO SCH (08:43)
[2021-07-27] MEDS: SERTRALINE 50 MG TAB PO SCH (08:44)
[2021-07-27] MEDS: GABAPENTIN 300 MG CAP PO SCH ×3 (08:44→21:27)
[2021-07-27] MEDS: CHOLECALCIFEROL 25 MCG (1000 IU) TABLET PO SCH (08:44)
--- NOTE | 2021-07-27 10:11 | P.PN ---
Subjective Progress Note Date: 07/26/21 Principal diagnosis: Left second toe gangrene status post amputation. Patient is a 71-year-old female coronary artery disease with history of stent placement on 07/16/2021, coronary artery disease, diabetes type 2 uncontrolled, hypertension, hyperlipidemia, peripheral vascular disease, obstructive sleep apnea, morbid obesity with BMI 48.4 presents to ER with complaints of left second toe infection. Patient was treated with antibiotics while in the hospital recently. Bone scan was negative for any osteomyelitis. Wound cultures were growing Pseudomonas. Patient was discharged on 07/20/2021. Patient was continued on cefepime while in the hospital. Patient does go to the wound care center. Patient does have history of diabetic peripheral neuropathy. Foot x-ray showed old fracture of the metatarsal. No evidence of osteo- mellitus. No adverse change compared to old exam. Laboratory data showed WBC 13.6 hemoglobin 11.2 and platelets 387 Sodium 136 potassium 5.7 chloride 106 bicarb is 21 BUN 28 creatinine 0.97 and blood sugar is 281 07/25/2021 Patient is awake alert and oriented 3. Sitting in a chair comfortably. Scheduled for left second toe amputation today. Patient was hypoglycemic this afternoon and was started on D5 normal saline. Continue with antibiotics cefepime as per ID recommendations. Next and laboratory data showed LBCD 12.6 hemoglobin 9.0 and platelets 340 BUN 31 and creatinine 1.1 blood sugar 232 in the a.m. Patient has been afebrile. No nausea vomiting or abdominal pain or diarrhea. No dysuria or hematuria. 07/26/2021 Patient is status post left second toe amputation postoperative day 1 Currently sitting in chair comfortably. Dressing changes to be done by vascular surgery. No complaints of fever or chills. Blood sugar is better controlled. Laboratory data showed WBC 16.1 hemoglobin 9.6 and platelets 382 BUN 33 and creatinine 1.2 Patient is being continued on antibiotics in the form of cefepime. ID and restless is on board. current medications reviewed. Objective - Vital Signs Vital signs: Vital Signs Temp 97.9 F 07/26/21 14:00 Pulse 75 07/26/21 14:00 Resp 18 07/26/21 14:00 BP 125/70 07/26/21 14:00 Pulse Ox 98 07/26/21 14:00 Intake & Output 07/26/21 07/26/21 07/27/21 06:59 18:59 06:59 Intake Total 440 Balance 440 Intake: Intake, IV Titration 100 Amount Cefepime 2 gm In Sodium 100 Chloride 0.9% 100 ml @ 25 mls/hr IVPB Q12H [facility] Rx# :[id number] Dextrose 5%-0.9% NaCl 1, 0 000 ml @ 50 mls/hr IV . Q20H [facility] Rx#:[id number] Oral 340 Other: # Voids 2 2 1 - Exam PHYSICAL EXAMINATION: GENERAL: Comfortably lying up in the bed appears to be no acute distress. Morbidly Obese HEENT: Pupils are round and equally reacting to light. EOMI. No scleral icterus. No conjunctival pallor. CARDIOVASCULAR: S1 and S2 present. No murmurs, rubs, or gallops. PULMONARY: Bilateral breath sounds positive. Diminshed at bases.No wheezing, mild crackles at bases. ABDOMEN: Soft,non -tender, normal bowel sounds. No guarding or rigidity. MUSCULOSKELETAL: No joint swelling or deformity. EXTREMITIES: No edema. Examination of the left second toe is discolored and dark., positive for tenderness. NEUROLOGICAL: Gross neurological examination did not reveal any focal deficits. SKIN:No rash, intact. - Labs CBC & Chem 7: 07/26/21 05:58 07/26/21 05:58 Labs: Abnormal Lab Results - Last 24 Hours (Table) 07/26/21 07/26/21 07/26/21 Range/Units 05:58 05:58 06:49 WBC 16.10 H (4.50-10.00) X 10*3/uL RBC 3.56 L (4.10-5.20) X 10*6/uL Hgb 9.6 L (12.0-15.0) g/dL Hct 30.6 L (37.2-46.3) % MCHC 31.4 L (32.0-37.0) g/dL Immature Gran # 0.13 H (0.00-0.04) X 10*3/uL Neutrophils # 13.93 H (1.80-7.70) X 10*3/uL Eosinophils # 0.01 L (0.04-0.35) X 10*3/uL Carbon Dioxide 18.9 L (21.6-31.8) mmol/L Anion Gap 12.10 H (4.00-12.00) mmol/L BUN 33.0 H (9.0-27.0) mg/dL Est GFR (CKD-EPI)AfAm 51.9 L (60.0-200.0) Est GFR (CKD-EPI)NonAf 44.8 L (60.0-200.0) BUN/Creatinine Ratio 27.50 H (12.00-20.00) Ratio Glucose 232 H (70-110) mg/dL POC Glucose (mg/dL) 236 H (75-99) mg/dL 07/26/21 07/26/21 07/26/21 Range/Units 11:18 16:50 20:25 WBC (4.50-10.00) X 10*3/uL RBC (4.10-5.20) X 10*6/uL Hgb (12.0-15.0) g/dL Hct (37.2-46.3) % MCHC (32.0-37.0) g/dL Immature Gran # (0.00-0.04) X 10*3/uL Neutrophils # (1.80-7.70) X 10*3/uL Eosinophils # (0.04-0.35) X 10*3/uL Carbon Dioxide (21.6-31.8) mmol/L Anion Gap (4.00-12.00) mmol/L BUN (9.0-27.0) mg/dL Est GFR (CKD-EPI)AfAm (60.0-200.0) Est GFR (CKD-EPI)NonAf (60.0-200.0) BUN/Creatinine Ratio (12.00-20.00) Ratio Glucose (70-110) mg/dL POC Glucose (mg/dL) 226 H 100 H 108 H (75-99) mg/dL Microbiology - Last 24 Hours (Table) 07/23/21 17:50 Blood Culture - Preliminary Blood No Growth after 72 hours 07/23/21 18:09 Blood Culture - Preliminary Blood No Growth after 72 hours 07/25/21 17:05 Gram Stain - Preliminary Toe - Left Second Tissue Culture - Preliminary 07/25/21 17:05 Anaerobic Culture - Preliminary Toe - Left Second Assessment and Plan Assessment: Left second toe gangrenous changes with diabetic foot infection. Recent cultures growing Pseudomonas and staph aureus. Status post amputation on 07/25/2021 Recent NSTEMI status post stenting of LAD on 07/16/2021 History of coronary artery disease status post stenting Hypertension Diabetes mellitus2 with hyperglycemia and uncontrolled. Diabetic retinopathy and peripheral neuropathy Hypertension Multiple joint osteoarthritis Obstructive sleep apnea noncompliant with CPAP Ischemic cardiomyopathy History of CVA/TIA Obstructive sleep apnea noncompliant with CPAP Thyroid disorder Migraine headaches Morbid obesity with BMI of 48.4 Mild protein calorie malnutrition Osteoporosis Bilateral tinnitus Bilateral toe wounds Diabetic neuropathy Bilateral hammertoes History of right knee arthroplasty History of chronic low back pain History of hysterectomy Plan: Patient will be continued on antibiotics in the form of cefepime. Patient was given a dose of Zosyn initially. Continue with pain management and follow up culture reports. Vascular surgery and ID is following Patient is status post left second toe amputation... Continue with pain management Continue with home dose of insulin regimen insulin sliding scale for blood pressure control. Next and continue with aspirin, Brilinta and statins due to recent history of stent placement. Follow up closely. Prognosis is guarded this time. Time with Patient: Greater than 30
[2021-07-27 11:02] LABS: African American GFR (CKD) 50 (>60 ml/min/1.73 sqM); Anion Gap 8 mmol/L; Blood Urea Nitrogen 37 mg/dL (7-17); Calcium 9.9 mg/dL (8.4-10.2); Carbon Dioxide 19 mmol/L (22-30); Chloride 108 mmol/L (98-107); Glucose 143 mg/dL (74-99); Non-African American GFR(CKD) 43 (>60 ml/min/1.73 sqM); Potassium 5.2 mmol/L (3.5-5.1); Sodium 135 mmol/L (137-145)
[2021-07-27 11:40] LABS: Glucose,Whole Blood 158 mg/dL (75-99)
[2021-07-27] MEDS: GENTAMICIN 0.1% CREAM 15 GM TUBE TOPICAL SCH ×2 (12:04→21:28)
[2021-07-27] MEDS: ACETAMINOPHEN TAB 325 MG TAB PO PRN (16:03)
[2021-07-27 16:12] LABS: Glucose,Whole Blood 208 mg/dL (75-99)
[2021-07-27 16:55] LABS: Glucose,Whole Blood 190 mg/dL (75-99)
--- NOTE | 2021-07-27 18:08 | XR ---
EXAMINATION TYPE: XR chest 1V portable DATE OF EXAM: 07/27/2021 COMPARISON: 07/15/2021 HISTORY: Short of breath TECHNIQUE: Single view FINDINGS: There is blunting left costophrenic angle. There is no heart failure. There are no hilar ma sses. Bony thorax is intact. Right lung is clear. IMPRESSION: There is some pleural reaction and fluid left costophrenic angle which is new compared to recent exam. Normal heart.
[2021-07-27 20:16] LABS: Glucose,Whole Blood 214 mg/dL (75-99)
[2021-07-27] MEDS: DEXTROSE 5%-0.9% NACL 1,000 ML IV SCH (20:19)
[2021-07-27 20:25] LABS: Basophils # (A) 0.04 X 10*3/uL (0.00-0.10); Basophils % (A) 0.3 %; Eosinophils # (A) 0.21 X 10*3/uL (0.04-0.35); Eosinophils % (A) 1.4 %; HCT 27.6 % (37.2-46.3); HGB 8.6 g/dL (12.0-15.0); Lymphocytes # (A) 1.25 X 10*3/uL (0.90-5.00); Lymphocytes % (A) 8.3 %; MCH 26.7 pg (27.0-32.0); MCHC 31.2 g/dL (32.0-37.0); MCV 85.7 fL (80.0-97.0); Mean Platelet Volume 10.2 fL (9.5-12.2); Monocytes % (A) 6.6 %; Neutrophils # (A) 12.48 X 10*3/uL (1.80-7.70); Neutrophils % (A) 82.7 %; Platelet Count 375 X 10*3/uL (140-440); RBC 3.22 X 10*6/uL (4.10-5.20); RDW 14.4 % (11.5-14.5); WBC 15.08 X 10*3/uL (4.50-10.00)
[2021-07-27] MEDS: ATORVASTATIN 80 MG TAB PO SCH (21:26)
[2021-07-27] MEDS: INSULIN DETEMIR (LEVEMIR) 100 UNIT/ML SYR SQ SCH (21:27)
--- NOTE | 2021-07-27 23:29 | P.PN ---
Subjective Progress Note Date: 07/27/21 Principal diagnosis: Left second toe gangrene status post amputation. Patient is a 71-year-old female coronary artery disease with history of stent placement on 07/16/2021, coronary artery disease, diabetes type 2 uncontrolled, hypertension, hyperlipidemia, peripheral vascular disease, obstructive sleep apnea, morbid obesity with BMI 48.4 presents to ER with complaints of left second toe infection. Patient was treated with antibiotics while in the hospital recently. Bone scan was negative for any osteomyelitis. Wound cultures were growing Pseudomonas. Patient was discharged on 07/20/2021. Patient was continued on cefepime while in the hospital. Patient does go to the wound care center. Patient does have history of diabetic peripheral neuropathy. Foot x-ray showed old fracture of the metatarsal. No evidence of osteo- mellitus. No adverse change compared to old exam. Laboratory data showed WBC 13.6 hemoglobin 11.2 and platelets 387 Sodium 136 potassium 5.7 chloride 106 bicarb is 21 BUN 28 creatinine 0.97 and blood sugar is 281 07/25/2021 Patient is awake alert and oriented 3. Sitting in a chair comfortably. Scheduled for left second toe amputation today. Patient was hypoglycemic this afternoon and was started on D5 normal saline. Continue with antibiotics cefepime as per ID recommendations. Next and laboratory data showed LBCD 12.6 hemoglobin 9.0 and platelets 340 BUN 31 and creatinine 1.1 blood sugar 232 in the a.m. Patient has been afebrile. No nausea vomiting or abdominal pain or diarrhea. No dysuria or hematuria. 07/26/2021 Patient is status post left second toe amputation postoperative day 1 Currently sitting in chair comfortably. Dressing changes to be done by vascular surgery. No complaints of fever or chills. Blood sugar is better controlled. Laboratory data showed WBC 16.1 hemoglobin 9.6 and platelets 382 BUN 33 and creatinine 1.2 Patient is being continued on antibiotics in the form of cefepime. ID and restless is on board. [id number] Patient is currently lying in the bed comfortably. Awake alert 1x3 no complaints of fever or chills. Currently at 98% on room air. No cough or sputum production. Complaints of left foot pain. Patient was complaining of shortness of breath this afternoon. Chest x-ray was ordered which showed some pleural reaction and fluid left costophrenic angle which is new compared to recent exam. Patient was increased with incentive spirometry. Laboratory data showed WBC 15.0 hemoglobin 8.6 and platelets 375 BUN 135 creatinine 5.2 chloride 108 bicarb 19 BUN 37 creatinine 1.24 blood sugar is 143 Current medications reviewed. current medications reviewed. Objective - Vital Signs Vital signs: Vital Signs Temp 98.1 F 07/27/21 20:00 Pulse 63 07/27/21 20:00 Resp 12 07/27/21 20:00 BP 112/67 07/27/21 20:00 Pulse Ox 94 L 07/27/21 20:00 Intake & Output 07/27/21 07/27/21 07/28/21 06:59 18:59 06:59 Intake Total 300 625 Balance 300 625 Intake: Intake, IV Titration 625 Amount Cefepime 2 gm In Sodium 25 Chloride 0.9% 100 ml @ 25 mls/hr IVPB Q12H [facility] Rx# :[id number] Dextrose 5%-0.9% NaCl 1, 600 000 ml @ 50 mls/hr IV . Q20H [facility] Rx#:[id number] Oral 300 Other: Voiding Method Bedside Commode # Voids 1 1 - Exam PHYSICAL EXAMINATION: GENERAL: Comfortably lying up in the bed appears to be no acute distress. Morbidly Obese HEENT: Pupils are round and equally reacting to light. EOMI. No scleral icterus. No conjunctival pallor. CARDIOVASCULAR: S1 and S2 present. No murmurs, rubs, or gallops. PULMONARY: Bilateral breath sounds positive. Diminshed at bases.No wheezing, mild crackles at bases. ABDOMEN: Soft,non -tender, normal bowel sounds. No guarding or rigidity. MUSCULOSKELETAL: No joint swelling or deformity. EXTREMITIES: No edema. Examination of the left second toe is discolored and dark., positive for tenderness. NEUROLOGICAL: Gross neurological examination did not reveal any focal deficits. SKIN:No rash, intact. - Labs CBC & Chem 7: 07/27/21 10:21 07/27/21 10:21 Labs: Abnormal Lab Results - Last 24 Hours (Table) 07/27/21 07/27/21 07/27/21 Range/Units 07:06 10:21 10:21 WBC 15.08 H (4.50-10.00) X 10*3/uL RBC 3.22 L (4.10-5.20) X 10*6/uL Hgb 8.6 L (12.0-15.0) g/dL Hct 27.6 L (37.2-46.3) % MCH 26.7 L (27.0-32.0) pg MCHC 31.2 L (32.0-37.0) g/dL Absolute Nucleated RBC 0.02 H (0.00-0.00) X 10*3/uL Immature Gran # 0.10 H (0.00-0.04) X 10*3/uL Neutrophils # 12.48 H (1.80-7.70) X 10*3/uL NRBC/100 WBC Diff 0.1 H (0.0-0.0) /100 WBCS Sodium 135 L (137-145) mmol/L Potassium 5.2 H (3.5-5.1) mmol/L Chloride 108 H (98-107) mmol/L Carbon Dioxide 19 L (22-30) mmol/L BUN 37 H (7-17) mg/dL Creatinine 1.24 H (0.52-1.04) mg/dL Glucose 143 H (74-99) mg/dL POC Glucose (mg/dL) 123 H (75-99) mg/dL 07/27/21 07/27/21 07/27/21 Range/Units 11:38 16:11 16:53 WBC (4.50-10.00) X 10*3/uL RBC (4.10-5.20) X 10*6/uL Hgb (12.0-15.0) g/dL Hct (37.2-46.3) % MCH (27.0-32.0) pg MCHC (32.0-37.0) g/dL Absolute Nucleated RBC (0.00-0.00) X 10*3/uL Immature Gran # (0.00-0.04) X 10*3/uL Neutrophils # (1.80-7.70) X 10*3/uL NRBC/100 WBC Diff (0.0-0.0) /100 WBCS Sodium (137-145) mmol/L Potassium (3.5-5.1) mmol/L Chloride (98-107) mmol/L Carbon Dioxide (22-30) mmol/L BUN (7-17) mg/dL Creatinine (0.52-1.04) mg/dL Glucose (74-99) mg/dL POC Glucose (mg/dL) 158 H 208 H 190 H (75-99) mg/dL 07/27/21 Range/Units 20:15 WBC (4.50-10.00) X 10*3/uL RBC (4.10-5.20) X 10*6/uL Hgb (12.0-15.0) g/dL Hct (37.2-46.3) % MCH (27.0-32.0) pg MCHC (32.0-37.0) g/dL Absolute Nucleated RBC (0.00-0.00) X 10*3/uL Immature Gran # (0.00-0.04) X 10*3/uL Neutrophils # (1.80-7.70) X 10*3/uL NRBC/100 WBC Diff (0.0-0.0) /100 WBCS Sodium (137-145) mmol/L Potassium (3.5-5.1) mmol/L Chloride (98-107) mmol/L Carbon Dioxide (22-30) mmol/L BUN (7-17) mg/dL Creatinine (0.52-1.04) mg/dL Glucose (74-99) mg/dL POC Glucose (mg/dL) 214 H (75-99) mg/dL Microbiology - Last 24 Hours (Table) 07/23/21 17:50 Blood Culture - Preliminary Blood No Growth after 96 hours 07/23/21 18:09 Blood Culture - Preliminary Blood No Growth after 96 hours 07/25/21 17:05 Gram Stain - Final Toe - Left Second Tissue Culture - Final 07/25/21 17:05 Anaerobic Culture - Preliminary Toe - Left Second Assessment and Plan Assessment: Left second toe gangrenous changes with diabetic foot infection. Recent cultures growing Pseudomonas and staph aureus. Status post amputation on 07/25/2021 Recent NSTEMI status post stenting of LAD on 07/16/2021 History of coronary artery disease status post stenting Hypertension Diabetes mellitus2 with hyperglycemia and uncontrolled. Diabetic retinopathy and peripheral neuropathy Hypertension Multiple joint osteoarthritis Obstructive sleep apnea noncompliant with CPAP Ischemic cardiomyopathy History of CVA/TIA Obstructive sleep apnea noncompliant with CPAP Thyroid disorder Migraine headaches Morbid obesity with BMI of 48.4 Mild protein calorie malnutrition Osteoporosis Bilateral tinnitus Bilateral toe wounds Diabetic neuropathy Bilateral hammertoes History of right knee arthroplasty History of chronic low back pain History of hysterectomy Plan: Patient will be continued on antibiotics in the form of cefepime. Patient was given a dose of Zosyn initially. Continue with pain management and follow up culture reports. Vascular surgery and ID is following Patient is status post left second toe amputation... Continue with pain management Continue with home dose of insulin regimen insulin sliding scale for blood pressure control. Next and continue with aspirin, Brilinta and statins due to recent history of stent placement. Follow up closely. Prognosis is guarded this time. Time with Patient: Greater than 30
--- NOTE | 2021-07-28 01:53 | PN ---
PROGRESS NOTE DATE OF SERVICE: 07/27/2021 REASON FOR FOLLOWUP: Left 2nd toe gangrene. INTERVAL HISTORY: Patient is afebrile. The patient is breathing comfortably. She was complaining of more pain to the left foot 2nd toe amputation site. No chest pain, shortness of breath, cough, no abdominal pain or diarrhea. PHYSICAL EXAMINATION: Her blood pressure is 112/67, pulse of 73, temperature 98.1. She is 94% on room air. General description is an elderly female lying in bed in no distress. Respiratory system: Unlabored breathing, clear to auscultation anteriorly. Heart S1, S2. Regular rate and rhythm. LABS: Hemoglobin 8.1, white count 15.3, BUN of 37, creatinine 1.24. DIAGNOSTIC IMPRESSION AND PLAN: Patient with left second toe osteomyelitis status post left second toe amputation. Patient is covered cefepime to continue while waiting for the culture to finalize and monitor clinical course closely. MMODL / IJN: [id number] /
[2021-07-28 06:19] LABS: Basophils # (A) 0.1 k/uL (0-0.2); Basophils % (A) 1 %; Eosinophils # (A) 0.2 k/uL (0-0.7); Eosinophils % (A) 2 %; HCT 29.2 % (34.0-46.0); Hypochromasia Marked; Lymphocytes # (A) 1.1 k/uL (1.0-4.8); Lymphocytes % (A) 8 %; MCH 27.7 pg (25.0-35.0); MCHC 31.7 g/dL (31.0-37.0); MCV 87.6 fL (80.0-100.0); Mean Platelet Volume 6.8; Monocytes # (A) 0.8 k/uL (0-1.0); Monocytes % (A) 6 %; Neutrophils # (A) 12.5 k/uL (1.3-7.7); Neutrophils % (A) 83 %; Platelet Count 379 k/uL (150-450); RBC 3.33 m/uL (3.80-5.40); RDW 14.5 % (11.5-15.5)
[2021-07-28 06:26] LABS: HGB 9.2 gm/dL (11.4-16.0)
[2021-07-28 06:57] LABS: Glucose,Whole Blood 213 mg/dL (75-99)
[2021-07-28] MEDS: HEPARIN SODIUM,PORCINE/PF 5,000 UNIT/0.5 ML SYRINGE SQ SCH ×2 (07:42→16:17)
[2021-07-28] MEDS: INSULIN ASPART (NovoLOG) 100 UNIT/ML VIAL SQ SCH ×6 (07:44→16:57)
[2021-07-28] MEDS: carvediloL 12.5 MG TAB PO SCH ×2 (07:47→16:17)
[2021-07-28] MEDS: LEVOTHYROXINE 50 MCG TAB PO SCH (07:47)
[2021-07-28] MEDS: GLIMEPIRIDE 4 MG TAB PO SCH (07:48)
[2021-07-28] MEDS: CEFEPIME 2 GM in SODIUM CHLORIDE 0.9% 100 ML IVPB SCH ×2 (07:55→21:11)
[2021-07-28] MEDS: ASPIRIN 81 MG PO SCH (09:41)
[2021-07-28] MEDS: CALCIUM CARBONATE 500 MG CHEWABLE PO SCH (09:41)
[2021-07-28] MEDS: CHOLECALCIFEROL 25 MCG (1000 IU) TABLET PO SCH (09:42)
[2021-07-28] MEDS: GABAPENTIN 300 MG CAP PO SCH ×3 (09:43→21:08)
[2021-07-28] MEDS: SERTRALINE 50 MG TAB PO SCH (09:44)
[2021-07-28] MEDS: TICAGRELOR 90 MG TAB PO SCH ×2 (09:44→21:08)
[2021-07-28] MEDS: LIOTHYRONINE SODIUM 5 MCG TAB PO SCH (09:44)
[2021-07-28] MEDS: VALSARTAN 160 MG TAB PO SCH ×2 (09:47→21:08)
[2021-07-28] MEDS: ARIPiprazole 5 MG TAB PO SCH (09:50)
[2021-07-28] MEDS: GENTAMICIN 0.1% CREAM 15 GM TUBE TOPICAL SCH (09:51)
[2021-07-28 10:54] LABS: African American GFR (CKD) 51.9 (60.0-200.0); Anion Gap 8.1 mmol/L (4.00-12.00); BUN/Creat Ratio 31.67 Ratio (12.00-20.00); Calcium 9.5 mg/dL (8.7-10.3); Carbon Dioxide 17.9 mmol/L (21.6-31.8); Non-African American GFR(CKD) 44.8 (60.0-200.0)
[2021-07-28 11:26] VITALS: BMI 48.4
[2021-07-28 12:04] LABS: Glucose,Whole Blood 196 mg/dL (75-99)
--- NOTE | 2021-07-28 13:47 | PN ---
PROGRESS NOTE DATE OF SERVICE: 07/28/2021 REASON FOR FOLLOWUP: Left 2nd toe gangrene. INTERVAL HISTORY: The patient is afebrile. The patient is breathing comfortably. Denies having any chest pain, shortness of breath or cough. No abdominal pain. No worsening pain to the left foot. PHYSICAL EXAMINATION: Blood pressure 140/57, pulse of 83, temperature 97.8. She is 95% on 2 L nasal cannula. General description is an elderly female up in the chair in no distress. Respiratory system: Unlabored breathing, clear to auscultation anteriorly. Heart S1, S2. Regular rate and rhythm. Abdomen: Soft. No tenderness. LABS: Hemoglobin is 9.2, white count 13, BUN of 38, creatinine 1.2. Cultures so far negative. DIAGNOSTIC IMPRESSION AND PLAN: Patient with left second toe gangrene status post amputation. Previous culture positive for MSSA and Pseudomonas. The patient did have persistent elevated white count despite being on cefepime and amputation of the toe. Will add Flagyl for cover for the anaerobe possible elevated white count and continue supportive care. MMODL / IJN: [id number] /
[2021-07-28] MEDS: ALBUTEROL NEBULIZED 2.5 MG/3 ML INHALATION PRN (14:58)
[2021-07-28] MEDS: metroNIDAZOLE 500 MG TAB PO SCH ×2 (16:17→21:08)
[2021-07-28 16:49] LABS: Glucose,Whole Blood 207 mg/dL (75-99)
[2021-07-28 20:48] LABS: Glucose,Whole Blood 151 mg/dL (75-99)
[2021-07-28] MEDS: ATORVASTATIN 80 MG TAB PO SCH (21:08)
[2021-07-28] MEDS: INSULIN DETEMIR (LEVEMIR) 100 UNIT/ML SYR SQ SCH (21:09)
[2021-07-29] MEDS: HEPARIN SODIUM,PORCINE/PF 5,000 UNIT/0.5 ML SYRINGE SQ SCH ×4 (01:47→22:23)
[2021-07-29] MEDS: GENTAMICIN 0.1% CREAM 15 GM TUBE TOPICAL SCH (01:48)
[2021-07-29 07:10] LABS: Glucose,Whole Blood 242 mg/dL (75-99)
[2021-07-29] MEDS: INSULIN ASPART (NovoLOG) 100 UNIT/ML VIAL SQ SCH ×6 (07:30→16:58)
[2021-07-29] MEDS: GLIMEPIRIDE 4 MG TAB PO SCH (07:30)
[2021-07-29] MEDS: carvediloL 12.5 MG TAB PO SCH ×2 (07:30→16:26)
[2021-07-29] MEDS: LEVOTHYROXINE 50 MCG TAB PO SCH (07:31)
[2021-07-29] MEDS: CEFEPIME 2 GM in SODIUM CHLORIDE 0.9% 100 ML IVPB SCH ×2 (07:53→20:57)
[2021-07-29] MEDS: ACETAMINOPHEN TAB 325 MG TAB PO PRN (08:42)
[2021-07-29] MEDS: ARIPiprazole 5 MG TAB PO SCH (09:12)
[2021-07-29] MEDS: CALCIUM CARBONATE 500 MG CHEWABLE PO SCH (09:12)
[2021-07-29] MEDS: ASPIRIN 81 MG PO SCH (09:12)
[2021-07-29] MEDS: LIOTHYRONINE SODIUM 5 MCG TAB PO SCH (09:13)
[2021-07-29] MEDS: GABAPENTIN 300 MG CAP PO SCH ×3 (09:13→20:53)
[2021-07-29] MEDS: TICAGRELOR 90 MG TAB PO SCH ×2 (09:14→20:54)
[2021-07-29] MEDS: metroNIDAZOLE 500 MG TAB PO SCH ×3 (09:14→20:57)
[2021-07-29] MEDS: VALSARTAN 160 MG TAB PO SCH ×2 (09:14→20:53)
[2021-07-29] MEDS: CHOLECALCIFEROL 25 MCG (1000 IU) TABLET PO SCH (09:15)
[2021-07-29] MEDS: SERTRALINE 50 MG TAB PO SCH (09:30)
[2021-07-29 11:40] LABS: Glucose,Whole Blood 203 mg/dL (75-99)
--- NOTE | 2021-07-29 14:09 | P.DS ---
Providers Date of admission: 07/23/21 20:00 Expected date of discharge: 07/29/21 Attending physician: Melba Lux Consults: 07/24/21 07:57 Consult Physician Urgent Consulting Provider: Tez Ansari Consult Reason/Comments: gangrene left second toe Do you want consulting provider notified?: Yes 07/24/21 17:04 Consult Physician Routine Consulting Provider: Celestina Peck Consult Reason/Comments: Left toe infection Do you want consulting provider notified?: Yes Primary care physician: Boris Galaeno MD Hospital Course: Final diagnosis Left second toe gangrenous changes with diabetic foot infection. Recent cultures growing Pseudomonas and staph aureus. Status post amputation on 07/25/2021 Recent NSTEMI status post stenting of LAD on 07/16/2021 History of coronary artery disease status post stenting Hypertension Diabetes mellitus2 with hyperglycemia and uncontrolled. Diabetic retinopathy and peripheral neuropathy Hypertension Multiple joint osteoarthritis Obstructive sleep apnea noncompliant with CPAP Ischemic cardiomyopathy History of CVA/TIA Obstructive sleep apnea noncompliant with CPAP Thyroid disorder Migraine headaches Morbid obesity with BMI of 48.4 Mild protein calorie malnutrition Osteoporosis Bilateral tinnitus Bilateral toe wounds Diabetic neuropathy Bilateral hammertoes History of right knee arthroplasty History of chronic low back pain History of hysterectomy Discharge disposition Patient is being discharged in a stable condition with guarded prognosis to [facility] for continued PT/OT therapy. Patient will follow-up with Dr. Serrano in the outpatient setting upon discharge. Patient normally follows with Dr. Galeano as his primary care provider and will follow-up outpatient once discharged from [facility]. Patient to follow-up with vascular surgery outpatient. Patient will continue on IV antibiotics in the form of cefepime along with oral Flagyl for the next 10 days to complete the course. Total time taken is greater than 35 minutes. Hospital course Left second toe gangrene status post amputation. Patient is a 71-year-old female coronary artery disease with history of stent placement on 07/16/2021, coronary artery disease, diabetes type 2 uncontrolled, hypertension, hyperlipidemia, peripheral vascular disease, obstructive sleep apnea, morbid obesity with BMI 48.4 presents to ER with complaints of left second toe infection. Patient was treated with antibiotics while in the hospital recently. Bone scan was negative for any osteomyelitis. Wound cultures were growing Pseudomonas. Patient was discharged on 07/20/2021. Patient was continued on cefepime while in the hospital. Patient does go to the wound care center. Patient does have history of diabetic peripheral neuropathy. Foot x-ray showed old fracture of the metatarsal. No evidence of osteo- mellitus. No adverse change compared to old exam. Laboratory data showed WBC 13.6 hemoglobin 11.2 and platelets 387 Sodium 136 potassium 5.7 chloride 106 bicarb is 21 BUN 28 creatinine 0.97 and blood sugar is 281 07/25/2021 Patient is awake alert and oriented 3. Sitting in a chair comfortably. Scheduled for left second toe amputation today. Patient was hypoglycemic this afternoon and was started on D5 normal saline. Continue with antibiotics cefepime as per ID recommendations. Next and laboratory data showed LBCD 12.6 hemoglobin 9.0 and platelets 340 BUN 31 and creatinine 1.1 blood sugar 232 in the a.m. Patient has been afebrile. No nausea vomiting or abdominal pain or diarrhea. No dysuria or hematuria. 07/26/2021 Patient is status post left second toe amputation postoperative day 1 Currently sitting in chair comfortably. Dressing changes to be done by vascular surgery. No complaints of fever or chills. Blood sugar is better controlled. Laboratory data showed WBC 16.1 hemoglobin 9.6 and platelets 382 BUN 33 and creatinine 1.2 Patient is being continued on antibiotics in the form of cefepime. ID and restless is on board. 07/27/2021 Patient is currently lying in the bed comfortably. Awake alert 1x3 no complaints of fever or chills. Currently at 98% on room air. No cough or sputum production. Complaints of left foot pain. Patient was complaining of shortness of breath this afternoon. Chest x-ray was ordered which showed some pleural reaction and fluid left costophrenic angle which is new compared to recent exam. Patient was increased with incentive spirometry. Laboratory data showed WBC 15.0 hemoglobin 8.6 and platelets 375 BUN 135 creatinine 5.2 chloride 108 bicarb 19 BUN 37 creatinine 1.24 blood sugar is 143 07/29/2021 Patient will be going to [facility] for continued PT/OT therapy and recommend continued IV antibiotics in the form of cefepime for the next 10 days along with oral Flagyl 3 times a day as well for 10 days. Recommend close outpatient follow-up at the wound care center and with vascular surgery outpatient. She will be receiving a midline for continued IV antibiotic therapy. Recommend to continue with heart healthy consistent carb diet and monitoring Accu-Cheks before meals and at bedtime and treat accordingly with sliding scale and other scheduled insulin. Currently no reports of chest pain, shortness of breath, or palpitations. Patient is afebrile. No reports of nausea or vomiting and patient is tolerating diet. Patient will be going to [facility] today. Guarded prognosis. On exam vital signs are stable. Cardio S1, S2 are muffled. Respiratory system shows diminished breath sounds at the bases with no wheezing or rhonchi noted. Abdomen is soft and nontender. Nervous system shows diffuse weakness. Please refer to medication reconciliation sheet for a list of medications. Patient Condition at Discharge: Stable Plan - Discharge Summary Discharge Rx Participant: No New Discharge Prescriptions: New Acetaminophen Tab [Tylenol] 650 mg PO Q6HR PRN tab PRN Reason: Fever And/ Or Pain metroNIDAZOLE [Flagyl] 500 mg PO TID #30 tab Cefepime [Maxipime] 2 gm IVPB Q12H 10 Days #20 each Albuterol Nebulized [Ventolin Nebulized] 2.5 mg INHALATION RT-Q4H PRN ml PRN Reason: Shortness Of Breath Continue Levothyroxine Sodium [Synthroid] 50 mcg PO AC-BRKFST Liothyronine Sodium [Cytomel] 5 mcg PO DAILY Sertraline HCl [Zoloft] 50 mg PO DAILY Cetirizine HCl [Zyrtec] 10 mg PO DAILY PRN PRN Reason: Allergy Symptoms Docusate [Colace] 100 mg PO BID PRN PRN Reason: Constipation Calcium Carbonate [Calcium] 600 mg PO DAILY Aspirin 81 mg PO DAILY #30 chew Ticagrelor [Brilinta] 90 mg PO BID #60 tab Cholecalciferol (Vitamin D3) [Vitamin D3 (5000 Iu)] 125 mcg PO DAILY Glimepiride [Amaryl] 4 mg PO AC-BRKFST Nitroglycerin Sl Tabs [Nitrostat] 0.4 mg SL Q5M PRN PRN Reason: Chest Pain Valsartan [Diovan] 160 mg PO BID #60 tab Atorvastatin [Lipitor] 80 mg PO HS #30 tab INSULIN ASPART (NovoLOG) [NovoLOG (formulary)] 6 units SQ AC-TID Gabapentin 300 mg PO TID #9 cap INSULIN ASPART (NovoLOG) [NovoLOG (formulary)] See Protocol SQ AC-TID rOPINIRole HCL [Requip] 0.5 mg PO HS Gentamicin 0.1% Cream 1 applic TOPICAL BID Diclofenac Sodium Gel [Voltaren Gel] 4 gm TOPICAL QID PRN PRN Reason: Leg pain ARIPiprazole [Abilify] 5 mg PO DAILY carvediloL [Coreg*] 12.5 mg PO BID-W/MEALS #60 tab Insulin Glargine [Lantus Vial] 65 unit SQ HS #0 Discontinued Ciprofloxacin HCl [Cipro] 500 mg PO BID 10 Days #20 tab Discharge Medication List Levothyroxine Sodium [Synthroid] 50 mcg PO AC-BRKFST 08/21/17 [History] Cetirizine HCl [Zyrtec] 10 mg PO DAILY PRN 05/06/20 [History] Liothyronine Sodium [Cytomel] 5 mcg PO DAILY 05/06/20 [History] Sertraline HCl [Zoloft] 50 mg PO DAILY 05/06/20 [History] Calcium Carbonate [Calcium] 600 mg PO DAILY 07/15/20 [History] Docusate [Colace] 100 mg PO BID PRN 07/15/20 [History] Aspirin 81 mg PO DAILY #30 chew 08/01/20 [Rx] Ticagrelor [Brilinta] 90 mg PO BID #60 tab 08/01/20 [Rx] Cholecalciferol (Vitamin D3) [Vitamin D3 (5000 Iu)] 125 mcg PO DAILY 02/18/21 [History] INSULIN ASPART (NovoLOG) [NovoLOG (formulary)] See Protocol SQ AC-TID 02/18/21 [History] Glimepiride [Amaryl] 4 mg PO AC-BRKFST 04/07/21 [History] ARIPiprazole [Abilify] 5 mg PO DAILY 07/16/21 [History] Diclofenac Sodium Gel [Voltaren Gel] 4 gm TOPICAL QID PRN 07/16/21 [History] Gentamicin 0.1% Cream 1 applic TOPICAL BID 07/16/21 [History] Nitroglycerin Sl Tabs [Nitrostat] 0.4 mg SL Q5M PRN 07/16/21 [History] rOPINIRole HCL [Requip] 0.5 mg PO HS 07/16/21 [History] Atorvastatin [Lipitor] 80 mg PO HS #30 tab 07/20/21 [Rx] Insulin Glargine [Lantus Vial] 65 unit SQ HS #0 07/20/21 [Rx] Valsartan [Diovan] 160 mg PO BID #60 tab 07/20/21 [Rx] carvediloL [Coreg*] 12.5 mg PO BID-W/MEALS #60 tab 07/20/21 [Rx] INSULIN ASPART (NovoLOG) [NovoLOG (formulary)] 6 units SQ AC-TID 07/23/21 [History] Acetaminophen Tab [Tylenol] 650 mg PO Q6HR PRN tab 07/29/21 [Rx] Albuterol Nebulized [Ventolin Nebulized] 2.5 mg INHALATION RT-Q4H PRN ml 07/29/21 [Rx] Cefepime [Maxipime] 2 gm IVPB Q12H 10 Days #20 each 07/29/21 [Rx] Gabapentin 300 mg PO TID #9 cap 07/29/21 [Rx] metroNIDAZOLE [Flagyl] 500 mg PO TID #30 tab 07/29/21 [Rx] Follow up Appointment(s)/Referral(s): Boris Galeano MD [Primary Care Provider] - 1-2 days [facility] [NON-STAFF] - Activity/Diet/Wound Care/Special Instructions: [facility] Activity as tolerated follow-up with vascular surgery outpatient Follow-up with primary care provider outpatient Continue with Accu-Cheks before meals and at bedtime and treat accordingly with sliding scale and other scheduled insulins continue IV antibiotics for 10 days NovoLog sliding scale 0-150 equals 0 units 151-200 equals 2 units 201-250 equals 4 units 251-300 equals 6 units 301-350 equals 8 units 351-400 equals 10 units Please notify provider if blood sugar is 400 or above Continue consistent carb diet continue incentive spirometer at least 10 times every hour while awake Continue with touchdown weightbearing of heel touch Discharge Disposition: TRANSFER TO SNF/ECF
--- NOTE | 2021-07-29 14:47 | P.PN ---
Subjective Progress Note Date: 07/28/21 Principal diagnosis: Left second toe gangrene status post amputation. Patient is a 71-year-old female coronary artery disease with history of stent placement on 07/16/2021, coronary artery disease, diabetes type 2 uncontrolled, hypertension, hyperlipidemia, peripheral vascular disease, obstructive sleep apnea, morbid obesity with BMI 48.4 presents to ER with complaints of left second toe infection. Patient was treated with antibiotics while in the hospital recently. Bone scan was negative for any osteomyelitis. Wound cultures were growing Pseudomonas. Patient was discharged on 07/20/2021. Patient was continued on cefepime while in the hospital. Patient does go to the wound care center. Patient does have history of diabetic peripheral neuropathy. Foot x-ray showed old fracture of the metatarsal. No evidence of osteo- mellitus. No adverse change compared to old exam. Laboratory data showed WBC 13.6 hemoglobin 11.2 and platelets 387 Sodium 136 potassium 5.7 chloride 106 bicarb is 21 BUN 28 creatinine 0.97 and blood sugar is 281 07/25/2021 Patient is awake alert and oriented 3. Sitting in a chair comfortably. Scheduled for left second toe amputation today. Patient was hypoglycemic this afternoon and was started on D5 normal saline. Continue with antibiotics cefepime as per ID recommendations. Next and laboratory data showed LBCD 12.6 hemoglobin 9.0 and platelets 340 BUN 31 and creatinine 1.1 blood sugar 232 in the a.m. Patient has been afebrile. No nausea vomiting or abdominal pain or diarrhea. No dysuria or hematuria. 07/26/2021 Patient is status post left second toe amputation postoperative day 1 Currently sitting in chair comfortably. Dressing changes to be done by vascular surgery. No complaints of fever or chills. Blood sugar is better controlled. Laboratory data showed WBC 16.1 hemoglobin 9.6 and platelets 382 BUN 33 and creatinine 1.2 Patient is being continued on antibiotics in the form of cefepime. ID and restless is on board. [id number] Patient is currently lying in the bed comfortably. Awake alert 1x3 no complaints of fever or chills. Currently at 98% on room air. No cough or sputum production. Complaints of left foot pain. Patient was complaining of shortness of breath this afternoon. Chest x-ray was ordered which showed some pleural reaction and fluid left costophrenic angle which is new compared to recent exam. Patient was increased with incentive spirometry. Laboratory data showed WBC 15.0 hemoglobin 8.6 and platelets 375 BUN 135 creatinine 5.2 chloride 108 bicarb 19 BUN 37 creatinine 1.24 blood sugar is 143 9221 Patient states that she feels better today. Left foot pain is improved with medications. No complaints of chest pain or shortness of breath. Patient is on room air. Patient is tolerating oral diet and reduce IV fluid rate. Encouraged with incentive spirometry. Patient is being continued on antibiotics in the form of cefepime. Next and laboratory data showed WBC 15.0, hemoglobin 9.2) history 79 BUN 38 and creatinine came down to 1.2 and blood sugar is 191. Patient has been afebrile. Dressing change was done by vascular surgery. ID is on board. Chest x-ray showed there is some pleural reaction and fluid left costophrenic angle which is new compared to recent exam. current medications reviewed. Objective - Vital Signs Vital signs: Vital Signs Temp 99.5 F 07/28/21 19:04 Pulse 71 07/28/21 19:04 Resp 18 07/28/21 19:04 BP 143/59 07/28/21 19:04 Pulse Ox 99 07/28/21 19:04 Intake & Output 07/28/21 07/28/21 07/29/21 06:59 18:59 06:59 Weight 136.078 kg Other: Voiding Method Bedside Commode # Voids 3 2 - Exam PHYSICAL EXAMINATION: GENERAL: Comfortably lying up in the bed appears to be no acute distress. Morbidly Obese HEENT: Pupils are round and equally reacting to light. EOMI. No scleral icterus. No conjunctival pallor. CARDIOVASCULAR: S1 and S2 present. No murmurs, rubs, or gallops. PULMONARY: Bilateral breath sounds positive. Diminshed at bases.No wheezing, mild crackles at bases. ABDOMEN: Soft,non -tender, normal bowel sounds. No guarding or rigidity. MUSCULOSKELETAL: No joint swelling or deformity. EXTREMITIES: No edema. Examination of the left second toe is discolored and dark., positive for tenderness. NEUROLOGICAL: Gross neurological examination did not reveal any focal deficits. SKIN:No rash, intact. - Labs CBC & Chem 7: 07/28/21 05:37 07/28/21 05:37 Labs: Abnormal Lab Results - Last 24 Hours (Table) 0907/28/21 07/28/21 Range/Units 05:37 05:37 06:55 WBC 15.0 H (3.8-10.6) k/uL RBC 3.33 L (3.80-5.40) m/uL Hgb 9.2 L D (11.4-16.0) gm/dL Hct 29.2 L (34.0-46.0) % Neutrophils # 12.5 H (1.3-7.7) k/uL Chloride 110 H (96-109) mmol/L Carbon Dioxide 17.9 L (21.6-31.8) mmol/L BUN 38.0 H (9.0-27.0) mg/dL Est GFR (CKD-EPI)AfAm 51.9 L (60.0-200.0) Est GFR (CKD-EPI)NonAf 44.8 L (60.0-200.0) BUN/Creatinine Ratio 31.67 H (12.00-20.00) Ratio Glucose 191 H (70-110) mg/dL POC Glucose (mg/dL) 213 H (75-99) mg/dL 07/28/21 07/28/21 07/28/21 Range/Units 12:02 16:48 20:42 WBC (3.8-10.6) k/uL RBC (3.80-5.40) m/uL Hgb (11.4-16.0) gm/dL Hct (34.0-46.0) % Neutrophils # (1.3-7.7) k/uL Chloride (96-109) mmol/L Carbon Dioxide (21.6-31.8) mmol/L BUN (9.0-27.0) mg/dL Est GFR (CKD-EPI)AfAm (60.0-200.0) Est GFR (CKD-EPI)NonAf (60.0-200.0) BUN/Creatinine Ratio (12.00-20.00) Ratio Glucose (70-110) mg/dL POC Glucose (mg/dL) 196 H 207 H 151 H (75-99) mg/dL Microbiology - Last 24 Hours (Table) 07/23/21 17:50 Blood Culture - Preliminary Blood No Growth after 120 hours 07/23/21 18:09 Blood Culture - Preliminary Blood No Growth after 120 hours 07/25/21 17:05 Gram Stain - Final Toe - Left Second Tissue Culture - Final Assessment and Plan Assessment: Left second toe gangrenous changes with diabetic foot infection. Recent cu ltures growing Pseudomonas and staph aureus. Status post amputation on 07/25/2021 Recent NSTEMI status post stenting of LAD on 07/16/2021 History of coronary artery disease status post stenting Hypertension Diabetes mellitus2 with hyperglycemia and uncontrolled. Diabetic retinopathy and peripheral neuropathy Hypertension Multiple joint osteoarthritis Obstructive sleep apnea noncompliant with CPAP Ischemic cardiomyopathy History of CVA/TIA Obstructive sleep apnea noncompliant with CPAP Thyroid disorder Migraine headaches Morbid obesity with BMI of 48.4 Mild protein calorie malnutrition Osteoporosis Bilateral tinnitus Bilateral toe wounds Diabetic neuropathy Bilateral hammertoes History of right knee arthroplasty History of chronic low back pain History of hysterectomy Plan: Patient will be continued on antibiotics in the form of cefepime. Patient was given a dose of Zosyn initially. Continue with pain management and follow up culture reports. Vascular surgery and ID is following Patient is status post left second toe amputation... Continue with pain management Continue with home dose of insulin regimen insulin sliding scale for blood pressure control. Next and continue with aspirin, Brilinta and statins due to recent history of stent placement. Encourage incentive spirometry. Follow up closely. Prognosis is guarded this time. Time with Patient: Greater than 30
--- NOTE | 2021-07-29 15:20 | PN ---
PROGRESS NOTE DATE OF SERVICE: 07/29/2021 REASON FOR FOLLOWUP: Left second toe gangrene. INTERVAL HISTORY: The patient is afebrile. The patient is breathing comfortably. Denies having any chest pain, shortness or cough. No abdominal pain or any worsening pain to the left foot area. PHYSICAL EXAMINATION: Blood pressure 142/68 with a pulse of 72, temperature is 97.6. He is 98% on room air. General description is an elderly female up in the bed in no distress. Respiratory system: Unlabored breathing, clear to auscultation anteriorly. Heart S1, S2. Regular rate and rhythm. Abdomen soft, no tenderness. Left foot second toe amputation wound base with minimal swelling and redness. No drainage. LABS: No new labs have been obtained today. DIAGNOSTIC IMPRESSION AND PLAN: Patient with left second toe amputation for a gangrenous toe. Wound base did have some cellulitis. Will benefit from cefepime and oral Flagyl [facility] a week [facility] [address] [facility] Local care with dry Aquacel dressing and close outpatient followup. MMODL / IJN: [id number] /
--- NOTE | 2021-07-29 15:42 | P.PN ---
Subjective Progress Note Date: 07/29/21 Left second toe gangrene status post amputation. Patient is a 71-year-old female coronary artery disease with history of stent placement on 07/16/2021, coronary artery disease, diabetes type 2 uncontrolled, hypertension, hyperlipidemia, peripheral vascular disease, obstructive sleep apnea, morbid obesity with BMI 48.4 presents to ER with complaints of left second toe infection. Patient was treated with antibiotics while in the hospital recently. Bone scan was negative for any osteomyelitis. Wound cultures were growing Pseudomonas. Patient was discharged on 07/20/2021. Patient was continued on cefepime while in the hospital. Patient does go to the wound care center. Patient does have history of diabetic peripheral neuropathy. Foot x-ray showed old fracture of the metatarsal. No evidence of osteo- mellitus. No adverse change compared to old exam. Laboratory data showed WBC 13.6 hemoglobin 11.2 and platelets 387 Sodium 136 potassium 5.7 chloride 106 bicarb is 21 BUN 28 creatinine 0.97 and blood sugar is 281 07/25/2021 Patient is awake alert and oriented 3. Sitting in a chair comfortably. Scheduled for left second toe amputation today. Patient was hypoglycemic this afternoon and was started on D5 normal saline. Continue with antibiotics cefepime as per ID recommendations. Next and laboratory data showed LBCD 12.6 hemoglobin 9.0 and platelets 340 BUN 31 and creatinine 1.1 blood sugar 232 in the a.m. Patient has been afebrile. No nausea vomiting or abdominal pain or diarrhea. No dysuria or hematuria. 07/26/2021 Patient is status post left second toe amputation postoperative day 1 Currently sitting in chair comfortably. Dressing changes to be done by vascular surgery. No complaints of fever or chills. Blood sugar is better controlled. Laboratory data showed WBC 16.1 hemoglobin 9.6 and platelets 382 BUN 33 and creatinine 1.2 Patient is being continued on antibiotics in the form of cefepime. ID and restless is on board. 07/27/2021 Patient is currently lying in the bed comfortably. Awake alert 1x3 no complaints of fever or chills. Currently at 98% on room air. No cough or sputum production. Complaints of left foot pain. Patient was complaining of shortness of breath this afternoon. Chest x-ray was ordered which showed some pleural reaction and fluid left costophrenic angle which is new compared to recent exam. Patient was increased with incentive spirometry. Laboratory data showed WBC 15.0 hemoglobin 8.6 and platelets 375 BUN 135 creatinine 5.2 chloride 108 bicarb 19 BUN 37 creatinine 1.24 blood sugar is 143 07/28/2021 Patient states that she feels better today. Left foot pain is improved with medications. No complaints of chest pain or shortness of breath. Patient is on room air. Patient is tolerating oral diet and reduce IV fluid rate. Encouraged with incentive spirometry. Patient is being continued on antibiotics in the form of cefepime. Next and laboratory data showed WBC 15.0, hemoglobin 9.2) history 79 BUN 38 and creatinin e came down to 1.2 and blood sugar is 191. Patient has been afebrile. Dressing change was done by vascular surgery. ID is on board. Chest x-ray showed there is some pleural reaction and fluid left costophrenic angle which is new compared to recent exam. 07/29/2021 Patient is seen and evaluated and follow-up and was evaluated at bedside by Dr. Ansari and recommending holding discharge to ECF and would like to do an angiogram in the morning and patient will be nothing by mouth at midnight. Di scussed with nursing staff about anticoagulation as she is currently on aspirin and Brilinta along with subcutaneous heparin and unsure if this will need to be held for angiogram. Vascular surgery following closely along with infectious disease. Patient will continue on IV cefepime along with oral Flagyl. She did receive a midline today and will require IV antibiotic therapy the outpatient setting when going to ECF. current medications reviewed. Active Medications Acetaminophen (Acetaminophen Tab 325 Mg Tab) 650 mg PO Q6HR PRN PRN Reason: Fever and/ or Pain Last Admin: 07/29/21 08:42 Dose: 650 mg Documented by: Albuterol Sulfate (Albuterol Nebulized 2.5 Mg/3 Ml) 2.5 mg INHALATION RT-Q4H PRN PRN Reason: Shortness Of Breath Last Admin: 07/28/21 14:58 Dose: 2.5 mg Documented by: Aripiprazole (Aripiprazole 5 Mg Tab) 5 mg PO DAILY [facility] Last Admin: 07/29/21 09:12 Dose: 5 mg Documented by: Aspirin (Aspirin 81 Mg) 81 mg PO DAILY [facility] Last Admin: 07/29/21 09:12 Dose: 81 mg Documented by: Atorvastatin Calcium (Atorvastatin 80 Mg Tab) 80 mg PO [facility] Last Admin: 07/28/21 21:08 Dose: 80 mg Documented by: Calcium Carbonate/Glycine (Calcium Carbonate 500 Mg Chewable) 500 mg PO DAILY [facility] Last Admin: 07/29/21 09:12 Dose: 500 mg Documented by: Carvedilol (Carvedilol 12.5 Mg Tab) 12.5 mg PO BID-W/MEALS [facility] Last Admin: 07/29/21 07:30 Dose: 12.5 mg Documented by: Cholecalciferol (Cholecalciferol 25 Mcg (1000 Iu) Tablet) 125 mcg PO DAILY [facility] Last Admin: 07/29/21 09:15 Dose: 125 mcg Documented by: Diclofenac Sodium (Diclofenac Sodium Gel 100 Gm Tube) 4 gm TOPICAL QID PRN; Protocol PRN Reason: Leg pain Last Admin: 07/25/21 19:22 Dose: 4 gm Documented by: Docusate Sodium (Docusate 100 Mg Cap) 100 mg PO BID PRN PRN Reason: Constipation Gabapentin (Gabapentin 300 Mg Cap) 300 mg PO TID [facility] Last Admin: 07/29/21 09:13 Dose: 300 mg Documented by: Glimepiride (Glimepiride 4 Mg Tab) 4 mg PO AC-BRKFST [facility] Last Admin: 07/29/21 07:30 Dose: 4 mg Documented by: Heparin Sodium (Porcine) (Heparin Sodium,Porcine/Pf 5,000 Unit/0.5 Ml Syringe) 5,000 unit SQ Q8HR [facility] Last Admin: 07/29/21 07:32 Dose: 5,000 unit Documented by: Cefepime HCl 2 gm/ Sodium (Chloride) 100 mls @ 25 mls/hr IVPB Q12H [facility] Last Admin: 07/29/21 07:53 Dose: 25 mls/hr Documented by: Insulin Aspart (Insulin Aspart (Novolog) 100 Unit/Ml Vial) 6 unit SQ AC-TID [facility] Last Admin: 07/29/21 12:07 Dose: 6 unit Documented by: Insulin Aspart (Insulin Aspart (Novolog) 100 Unit/Ml Vial) 0 unit SQ AC-TID [facility]; Protocol Last Admin: 07/29/21 12:07 Dose: 4 unit Documented by: Insulin Detemir (Insulin Detemir (Levemir) 100 Unit/Ml Syr) 65 unit SQ [facility] Last Admin: 07/28/21 21:09 Dose: 65 unit Documented by: Levothyroxine Sodium (Levothyroxine 50 Mcg Tab) 50 mcg PO AC-BRKFST [facility] Last Admin: 07/29/21 07:31 Dose: 50 mcg Documented by: Liothyronine Sodium (Liothyronine Sodium 5 Mcg Tab) 5 mcg PO DAILY [facility] Last Admin: 07/29/21 09:13 Dose: 5 mcg Documented by: Loratadine (Loratadine 10 Mg Tab) 10 mg PO DAILY PRN PRN Reason: Allergy Symptoms Metronidazole (Metronidazole 500 Mg Tab) 500 mg PO TID [facility] Last Admin: 07/29/21 09:14 Dose: 500 mg Documented by: Naloxone HCl (Naloxone 0.4 Mg/Ml 1 Ml Vial) 0.2 mg IV Q2M PRN PRN Reason: Opioid Reversal Nitroglycerin (Nitroglycerin Sl Tabs 0.4 Mg Tab) 0.4 mg SUBLINGUAL Q5M PRN PRN Reason: Chest Pain Ropinirole HCl (Ropinirole Hcl 0.25 Mg Tab) 0.5 mg PO [facility] Last Admin: 07/28/21 21:07 Dose: 0.5 mg Documented by: Sertraline HCl (Sertraline 50 Mg Tab) 50 mg PO DAILY [facility] Last Admin: 07/29/21 09:30 Dose: 50 mg Documented by: Ticagrelor (Ticagrelor 90 Mg Tab) 90 mg PO BID [facility] Last Admin: 07/29/21 09:14 Dose: 90 mg Documented by: Valsartan (Valsartan 160 Mg Tab) 160 mg PO BID [facility] Last Admin: 07/29/21 09:14 Dose: 160 mg Documented by: Objective - Vital Signs Vital signs: Vital Signs Temp 97.6 F 07/29/21 12:28 Pulse 72 07/29/21 12:28 Resp 16 07/29/21 12:28 BP 142/68 07/29/21 12:28 Pulse Ox 98 07/29/21 12:28 Intake & Output 07/28/21 07/29/21 07/29/21 18:59 06:59 18:59 Weight 136.078 kg Other: Voiding Method Bedside Commode Bedside Commode # Voids 2 2 # Bowel Movements 0 - Exam GENERAL: Comfortably lying up in the bed appears to be no acute distress. Morbidly Obese HEENT: Pupils are round and equally reacting to light. EOMI. No scleral icterus. No conjunctival pallor. CARDIOVASCULAR: S1 and S2 present. No murmurs, rubs, or gallops. PULMONARY: Bilateral breath sounds positive. Diminshed at bases.No wheezing, mild crackles at bases. ABDOMEN: Soft,non -tender, normal bowel sounds. No guarding or rigidity. MUSCULOSKELETAL: No joint swelling or deformity. EXTREMITIES: No edema. Examination of the left second toe is discolored and dark., positive for tenderness. NEUROLOGICAL: Gross neurological examination did not reveal any focal deficits. SKIN:No rash, intact. - Labs CBC & Chem 7: 07/28/21 05:37 07/28/21 05:37 Labs: Abnormal Lab Results - Last 24 Hours (Table) 07/28/21 07/28/21 07/29/21 Range/Units 16:48 20:42 07:09 POC Glucose (mg/dL) 207 H 151 H 242 H (75-99) mg/dL 07/29/21 Range/Units 11:38 POC Glucose (mg/dL) 203 H (75-99) mg/dL Microbiology - Last 24 Hours (Table) 07/23/21 17:50 Blood Culture - Preliminary Blood No Growth after 120 hours 07/23/21 18:09 Blood Culture - Preliminary Blood No Growth after 120 hours Assessment and Plan Assessment: Left second toe gangrenous changes with diabetic foot infection. Recent cultures growing Pseudomonas and staph aureus. Status post amputation on 07/25/2021 Recent NSTEMI status post stenting of LAD on 07/16/2021 History of coronary artery disease status post stenting Hypertension Diabetes mellitus2 with hyperglycemia and uncontrolled. Diabetic retinopathy and peripheral neuropathy Hypertension Multiple joint osteoarthritis Obstructive sleep apnea noncompliant with CPAP Ischemic cardiomyopathy History of CVA/TIA Obstructive sleep apnea noncompliant with CPAP Thyroid disorder Migraine headaches Morbid obesity with BMI of 48.4 Mild protein calorie malnutrition Osteoporosis Bilateral tinnitus Bilateral toe wounds Diabetic neuropathy Bilateral hammertoes History of right knee arthroplasty History of chronic low back pain History of hysterectomy Plan: Patient is continued on antibiotics in the form of cefepime and oral Flagyl with infectious disease following closely.. Patient received a midline and will continue with IV antibiotic therapy in the outpatient setting as she is going to [facility] once stabilized and discharged. Patient evaluated by Dr. Ansari at the bedside recommending angiogram in the morning and patient will be nothing by mouth at midnight. Continue with local wound care and pain management. COVID- 19 was negative. Recommend to continue with Accu-Cheks before meals and at bedtime along with female insulin, sliding scale, and long-acting and monitor closely. Encouraged incentive spirometer at least 10 times every hour while awake. Patient is status post left second toe amputation... Due to multiple complex medical issues, prognosis is guarded. Further recommendations to follow based on the clinical course the patient. Will discuss with vascular surgery after angiogram about treatment plan moving forward.
--- NOTE | 2021-07-29 15:43 | PN ---
PROGRESS NOTE This is a 71-year-old diabetic female. Patient came with gangrene of the left foot second toe. Patient went for ray amputation. The patient has been under care of Infectious Disease for IV antibiotic. The patient is positive for MRSA and Pseudomonas. Today we have changed the dressing. There was some devitalized tissue which was excised. ( ) were applied to the wound. Dressing applied. Since patient has poor circulation of the leg we may be doing angiogram. We will discuss with the family. If there are ( ) we will arrange for angiogram. In the meantime we will continue with local wound care and IV antibiotic. MMODL / IJN: [id number] /
[2021-07-29 16:55] LABS: Glucose,Whole Blood 198 mg/dL (75-99)
[2021-07-29 20:32] LABS: Glucose,Whole Blood 206 mg/dL (75-99)
[2021-07-29] MEDS: ATORVASTATIN 80 MG TAB PO SCH (20:53)
[2021-07-29] MEDS: INSULIN DETEMIR (LEVEMIR) 100 UNIT/ML SYR SQ SCH (20:57)
[2021-07-29] MEDS: ALBUTEROL NEBULIZED 2.5 MG/3 ML INHALATION PRN (21:30)
[2021-07-30 06:09] LABS: Glucose,Whole Blood 225 mg/dL (75-99)
[2021-07-30] MEDS: GLIMEPIRIDE 4 MG TAB PO SCH (06:50)
[2021-07-30] MEDS: INSULIN ASPART (NovoLOG) 100 UNIT/ML VIAL SQ SCH ×7 (06:50→20:44)
[2021-07-30] MEDS: carvediloL 12.5 MG TAB PO SCH ×2 (06:50→17:17)
[2021-07-30] MEDS: LEVOTHYROXINE 50 MCG TAB PO SCH (06:50)
[2021-07-30] MEDS ORDERED: methylPREDNISolone SOD SUCCI 125 MG/2 ML VIAL IVP ONE (08:15)
[2021-07-30] MEDS ORDERED: diphenhydrAMINE 50 MG/ML 1 ML VIAL IVP ONE (08:15)
[2021-07-30] MEDS ORDERED: MIDAZOLAM 2 MG/2 ML VIAL IVP ONE (08:18)
[2021-07-30] MEDS ORDERED: LIDOCAINE 1% INJ 10MG/ML (20 ML MDV) SQ ONE (08:19)
[2021-07-30] MEDS ORDERED: IV FLUID CONTINUATION 1,000 ML IV ONE (08:22)
[2021-07-30] MEDS ORDERED: IOPAMIDOL-250 100ML BTL INTRAARTER ONE (08:46)
[2021-07-30] MEDS: CEFEPIME 2 GM in SODIUM CHLORIDE 0.9% 100 ML IVPB SCH ×2 (10:13→20:41)
[2021-07-30] MEDS: CHOLECALCIFEROL 25 MCG (1000 IU) TABLET PO SCH (10:14)
[2021-07-30] MEDS: metroNIDAZOLE 500 MG TAB PO SCH ×3 (10:14→20:43)
[2021-07-30] MEDS: GABAPENTIN 300 MG CAP PO SCH ×3 (10:14→20:43)
[2021-07-30] MEDS: HEPARIN SODIUM,PORCINE/PF 5,000 UNIT/0.5 ML SYRINGE SQ SCH ×2 (10:14→17:17)
[2021-07-30] MEDS: CALCIUM CARBONATE 500 MG CHEWABLE PO SCH (10:14)
[2021-07-30] MEDS: TICAGRELOR 90 MG TAB PO SCH ×2 (10:15→20:42)
[2021-07-30] MEDS: ASPIRIN 81 MG PO SCH (10:15)
[2021-07-30] MEDS: SERTRALINE 50 MG TAB PO SCH (10:15)
[2021-07-30] MEDS: VALSARTAN 160 MG TAB PO SCH ×2 (11:33→20:52)
[2021-07-30] MEDS: LIOTHYRONINE SODIUM 5 MCG TAB PO SCH (11:33)
[2021-07-30] MEDS: ARIPiprazole 5 MG TAB PO SCH (11:33)
[2021-07-30] MEDS: ACETAMINOPHEN TAB 325 MG TAB PO PRN (11:33)
--- NOTE | 2021-07-30 11:44 | OP ---
OPERATIVE REPORT PREOPERATIVE DIAGNOSIS: Left foot second toe gangrene post ray amputation. POSTOPERATIVE DIAGNOSIS: Left foot second toe gangrene post ray amputation. PROCEDURE: Left leg angiogram. HISTORY: This patient has a history of obesity, diabetes, coronary artery disease post coronary artery stent, and history of dye allergy. This patient came with left foot second toe gangrene. Patient went with ray amputation and patient on IV antibiotic for the local wound care. DESCRIPTION OF PROCEDURE: The patient was brought to the chemical lab technician. Right and left groins were prepped and drapes applied in the usual sterile manner. This patient had recently heart catheterization done with stent placement from the right side. Ultrasound-guided micropuncture introduced in left common femoral artery. Micropuncture guidewire was passed and a 4- Japanese dilator advanced on top of the guidewire. Then, we passed a regular guidewire and 4-Japanese sheath was advanced on the top of the guidewire. Flushed with heparin saline. Prior to that we gave the patient Benadryl and Solu-Medrol and IV sedation. The left leg angiogram was performed with hand injection. Angiogram was performed. Left external iliac, common femoral, and profunda was visualized. We checked the SFA by hand injection. There is a left SFA occlusion at the canal now with some collaterals. The patient has a popliteal artery was visualized, which was patent below the knee anterior. Tibial is visualized at the takeoff. The peroneal and posterior tibial was not visualized, totally occluded, then we did the distal runoff to the foot and anterior tibial has area of high-grade stenosis at the upper 1/3 of the anterior tibial artery. Anterior tibial artery was visualized at the ankle. Posterior tibial peroneal is not visualized. At the ankles there is a reconstitution of the posterior tibial artery at the ankle area, but no collaterals were noted. IMPRESSION: 1. Mid SFA short segment total occlusion. 2. Peroneal and posterior tibial, occluded. 3. Anterior tibial has 2 segment high-grade stenosis. Catheter and sheath was removed. Pressure was held. Patient tolerated the procedure well. MMODL / IJN: [id number] /
[2021-07-30 11:45] LABS: Glucose,Whole Blood 146 mg/dL (75-99)
[2021-07-30 12:46] LABS: Basophils % (A) 0 %; Eosinophils % (A) 0 %; HCT 28.3 % (34.0-46.0); HGB 9.4 gm/dL (11.4-16.0); Lymphocytes # (A) 0.5 k/uL (1.0-4.8); Lymphocytes % (A) 3 %; MCH 27.6 pg (25.0-35.0); MCHC 33.1 g/dL (31.0-37.0); MCV 83.5 fL (80.0-100.0); Mean Platelet Volume 6.9; Monocytes # (A) 0.2 k/uL (0-1.0); Monocytes % (A) 2 %; Neutrophils # (A) 14.1 k/uL (1.3-7.7); Neutrophils % (A) 94 %; Platelet Count 429 k/uL (150-450); RBC 3.38 m/uL (3.80-5.40); RDW 14.7 % (11.5-15.5)
[2021-07-30 13:02] LABS: Calcium 10.4 mg/dL (8.4-10.2); Potassium 5.6 mmol/L (3.5-5.1)
[2021-07-30 16:32] LABS: Glucose,Whole Blood 276 mg/dL (75-99)
--- NOTE | 2021-07-30 16:35 | P.PN ---
Subjective Progress Note Date: 07/30/21 Principal diagnosis: Left second toe gangrene status post amputation. Patient is a 71-year-old female coronary artery disease with history of stent placement on 07/16/2021, coronary artery disease, diabetes type 2 uncontrolled, hypertension, hyperlipidemia, peripheral vascular disease, obstructive sleep apnea, morbid obesity with BMI 48.4 presents to ER with complaints of left second toe infection. Patient was treated with antibiotics while in the hospital recently. Bone scan was negative for any osteomyelitis. Wound cultures were growing Pseudomonas. Patient was discharged on 07/20/2021. Patient was continued on cefepime while in the hospital. Patient does go to the wound care center. Patient does have history of diabetic peripheral neuropathy. Foot x-ray showed old fracture of the metatarsal. No evidence of osteo- mellitus. No adverse change compared to old exam. Laboratory data showed WBC 13.6 hemoglobin 11.2 and platelets 387 Sodium 136 potassium 5.7 chloride 106 bicarb is 21 BUN 28 creatinine 0.97 and blood sugar is 281 07/25/2021 Patient is awake alert and oriented 3. Sitting in a chair comfortably. Scheduled for left second toe amputation today. Patient was hypoglycemic this afternoon and was started on D5 normal saline. Continue with antibiotics cefepime as per ID recommendations. Next and laboratory data showed LBCD 12.6 hemoglobin 9.0 and platelets 340 BUN 31 and creatinine 1.1 blood sugar 232 in the a.m. Patient has been afebrile. No nausea vomiting or abdominal pain or diarrhea. No dysuria or hematuria. 07/26/2021 Patient is status post left second toe amputation postoperative day 1 Currently sitting in chair comfortably. Dressing changes to be done by vascular surgery. No complaints of fever or chills. Blood sugar is better controlled. Laboratory data showed WBC 16.1 hemoglobin 9.6 and platelets 382 BUN 33 and creatinine 1.2 Patient is being continued on antibiotics in the form of cefepime. ID and restless is on board. [id number] Patient is currently lying in the bed comfortably. Awake alert 1x3 no complaints of fever or chills. Currently at 98% on room air. No cough or sputum production. Complaints of left foot pain. Patient was complaining of shortness of breath this afternoon. Chest x-ray was ordered which showed some pleural reaction and fluid left costophrenic angle which is new compared to recent exam. Patient was increased with incentive spirometry. Laboratory data showed WBC 15.0 hemoglobin 8.6 and platelets 375 BUN 135 creatinine 5.2 chloride 108 bicarb 19 BUN 37 creatinine 1.24 blood sugar is 143 [id number] Patient states that she feels better today. Left foot pain is improved with medications. No complaints of chest pain or shortness of breath. Patient is on room air. Patient is tolerating oral diet and reduce IV fluid rate. Encouraged with incentive spirometry. Patient is being continued on antibiotics in the form of cefepime. Next and laboratory data showed WBC 15.0, hemoglobin 9.2) history 79 BUN 38 and creatinine came down to 1.2 and blood sugar is 191. Patient has been afebrile. Dressing change was done by vascular surgery. ID is on board. Chest x-ray showed there is some pleural reaction and fluid left costophrenic angle which is new compared to recent exam. 07/29/2021 Patient is seen and evaluated and follow-up and was evaluated at bedside by Dr. Ansari and recommending holding discharge to ECF and would like to do an angiogram in the morning and patient will be nothing by mouth at midnight. Discussed with nursing staff about anticoagulation as she is currently on aspirin and Brilinta along with subcutaneous heparin and unsure if this will need to be held for angiogram. Vascular surgery following closely along with infectious disease. Patient will continue on IV cefepime along with oral Flagyl. She did receive a midline today and will require IV antibiotic therapy the outpatient setting when going to ECF. 07/30/2021 Patient is lying in the bed. Awake alert and oriented 3. No complaints of dizziness or lightheadedness. The patient dislikes keystone after procedure. Patient underwent left lower activity angiogram. Showed Mid SFA short segment total occlusion. Peroneal and posterior tibial occluded. Anterior tibial has to segment high-grade stenosis. Patient denied any complains of chest pain or shortness of breath. Left foot wound stump dressing change. Wound cultures growing anaerobic gram-negative bacilli. Patient is on antibio tics of cefepime. Laboratory data showed WBC 15.0 hemoglobin 9.4 and platelets 429 Sodium 134 potassium 5.6 chloride 109. BUN 46 and creatinine 1.13, calcium 10.4 current medications reviewed. Objective - Vital Signs Vital signs: Vital Signs Temp 98.3 F 07/30/21 11:15 Pulse 68 07/30/21 11:45 Resp 16 07/30/21 11:15 BP 159/80 07/30/21 11:45 Pulse Ox 94 L 07/30/21 11:45 Intake & Output 07/29/21 07/30/21 07/30/21 18:59 06:59 18:59 Intake Total 100 100 Output Total 300 Balance 100 -200 Weight 143.5 kg Intake: IV 100 Intake, IV Titration 100 Amount Cefepime 2 gm In Sodium 100 Chloride 0.9% 100 ml @ 25 mls/hr IVPB Q12H [facility] Rx# :[id number] Output: Urine 300 Other: Voiding Method Bedside Commode Bedside Commode # Voids 6 1 1 # Bowel Movements 1 - Exam PHYSICAL EXAMINATION: GENERAL: Comfortably lying up in the bed appears to be no acute distress. Morbidly Obese HEENT: Pupils are round and equally reacting to light. EOMI. No scleral icterus. No conjunctival pallor. CARDIOVASCULAR: S1 and S2 present. No murmurs, rubs, or gallops. PULMONARY: Bilateral breath sounds positive. Diminshed at bases.No wheezing, mild crackles at bases. ABDOMEN: Soft,non -tender, normal bowel sounds. No guarding or rigidity. MUSCULOSKELETAL: No joint swelling or deformity. EXTREMITIES: No edema. Examination of the left second toe is discolored and dark., positive for tenderness. NEUROLOGICAL: Gross neurological examination did not reveal any focal deficits. SKIN:No rash, intact. - Labs CBC & Chem 7: 07/30/21 12:27 07/30/21 12:27 Labs: Abnormal Lab Results - Last 24 Hours (Table) 07/29/21 07/29/21 07/30/21 Range/Units 16:53 20:17 05:53 POC Glucose (mg/dL) 198 H 206 H 225 H (75-99) mg/dL 07/30/21 Range/Units 11:44 POC Glucose (mg/dL) 146 H (75-99) mg/dL Microbiology - Last 24 Hours (Table) 07/25/21 17:05 Anaerobic Culture - Final Toe - Left Second Anaerobic Gm Negative Bacilli 07/23/21 17:50 Blood Culture - Final Blood No Growth after 144 hours 07/23/21 18:09 Blood Culture - Final Blood No Growth after 144 hours Assessment and Plan Assessment: Left second toe gangrenous changes with diabetic foot infection. Recent cultures growing Pseudomonas and staph aureus. Status post amputation on 07/25/2021 Status post left lower extremity angiogram on 07/30/2021. Recent NSTEMI status post stenting of LAD on 07/16/2021 History of coronary artery disease status post stenting Hypertension Diabetes mellitus2 with hyperglycemia and uncontrolled. Diabetic retinopathy and peripheral neuropathy Hypertension Multiple joint osteoarthritis Obstructive sleep apnea noncompliant with CPAP Ischemic cardiomyopathy History of CVA/TIA Obstructive sleep apnea noncompliant with CPAP Thyroid disorder Migraine headaches Morbid obesity with BMI of 48.4 Mild protein calorie malnutrition Osteoporosis Bilateral tinnitus Bilateral toe wounds Diabetic neuropathy Bilateral hammertoes History of right knee arthroplasty History of chronic low back pain History of hysterectomy Plan: Patient will be continued on antibiotics in the form of cefepime. Patient was given a dose of Zosyn initially. Continue with pain management and follow up culture reports. Vascular surgery and ID is following. Patient is status post left lower extremity angiogram. Patient is status post left second toe amputation... Continue with pain management. . gentle IV hydration. Continue with home dose of insulin regimen insulin sliding scale for blood pressure control. Next and continue with aspirin, Brilinta and statins due to recent history of stent placement. Encourage incentive spirometry. Follow up closely. Prognosis is guarded this time. Time with Patient: Greater than 30
[2021-07-30] MEDS: SODIUM CHLORIDE 0.9% 1,000 ML IV SCH ×3 (17:20→19:33)
--- NOTE | 2021-07-30 20:10 | PN ---
PROGRESS NOTE DATE OF SERVICE: 07/30/2021 REASON FOR FOLLOWUP: Left 2nd toe gangrene and cellulitis. INTERVAL HISTORY: Patient is afebrile. The patient is status post left leg angiogram completed today. Patient tolerated the procedure. Denies having any chest pain, shortness of breath or cough. No abdominal pain or diarrhea. EXAMINATION: Vital signs stable. General description is elderly female lying in bed in no distress. Respiratory system: Unlabored breathing. Clear to auscultation anteriorly. Heart S1, S2. Regular rate and rhythm. Abdomen soft, no tenderness. LABS: Hemoglobin 9.4, white count 15. BUN of 46, creatinine 1.13. Local culture with anaerobic Gram-negative bacilli. DIAGNOSTIC IMPRESSION AND PLAN: Patient with left second toe gangrene status post amputation, now with evidence of peripheral arterial disease. Patient is covered with cefepime and Flagyl to continue. Local wound care with Aquacel dressing and continue supportive care. MMODL / IJN: [id number] /
[2021-07-30] MEDS: ATORVASTATIN 80 MG TAB PO SCH (20:42)
[2021-07-30 20:43] LABS: Glucose,Whole Blood 348 mg/dL (75-99)
[2021-07-30] MEDS: INSULIN DETEMIR (LEVEMIR) 100 UNIT/ML SYR SQ SCH (20:43)
[2021-07-31] MEDS: HEPARIN SODIUM,PORCINE/PF 5,000 UNIT/0.5 ML SYRINGE SQ SCH ×3 (04:13→16:26)
[2021-07-31 06:24] LABS: Glucose,Whole Blood 287 mg/dL (75-99)
[2021-07-31] MEDS: carvediloL 12.5 MG TAB PO SCH ×2 (06:27→16:26)
[2021-07-31] MEDS: LEVOTHYROXINE 50 MCG TAB PO SCH (06:28)
[2021-07-31] MEDS: GLIMEPIRIDE 4 MG TAB PO SCH (06:30)
[2021-07-31] MEDS: INSULIN ASPART (NovoLOG) 100 UNIT/ML VIAL SQ SCH ×5 (06:30→18:13)
[2021-07-31 07:59] LABS: Basophils % (A) 0 %; Eosinophils % (A) 0 %; HCT 27.2 % (34.0-46.0); HGB 9.1 gm/dL (11.4-16.0); Hypochromasia Slight; Lymphocytes # (A) 0.8 k/uL (1.0-4.8); Lymphocytes % (A) 4 %; MCHC 33.4 g/dL (31.0-37.0); MCV 83.8 fL (80.0-100.0); Mean Platelet Volume 7.1; Monocytes # (A) 0.7 k/uL (0-1.0); Monocytes % (A) 4 %; Neutrophils # (A) 17.4 k/uL (1.3-7.7); Neutrophils % (A) 91 %; Platelet Count 494 k/uL (150-450); RBC 3.24 m/uL (3.80-5.40); RDW 14.4 % (11.5-15.5); WBC 19.1 k/uL (3.8-10.6)
[2021-07-31 08:11] LABS: Calcium 10.6 mg/dL (8.4-10.2); Potassium 5.7 mmol/L (3.5-5.1)
[2021-07-31] MEDS ORDERED: DEXTROSE 50% SYRINGE 50 ML IVP STA (08:21)
[2021-07-31] MEDS ORDERED: INSULIN REGULAR 100 UNIT/ML VIAL (IV) IV ONE (08:22)
[2021-07-31] MEDS: CEFEPIME 2 GM in SODIUM CHLORIDE 0.9% 100 ML IVPB SCH ×2 (09:33→20:55)
[2021-07-31] MEDS: CALCIUM CARBONATE 500 MG CHEWABLE PO SCH (09:34)
[2021-07-31] MEDS: CHOLECALCIFEROL 25 MCG (1000 IU) TABLET PO SCH (09:34)
[2021-07-31] MEDS: SERTRALINE 50 MG TAB PO SCH (09:34)
[2021-07-31] MEDS: GABAPENTIN 300 MG CAP PO SCH ×3 (09:34→20:53)
[2021-07-31] MEDS: VALSARTAN 160 MG TAB PO SCH ×2 (09:34→20:54)
[2021-07-31] MEDS: ARIPiprazole 5 MG TAB PO SCH (09:34)
[2021-07-31] MEDS: TICAGRELOR 90 MG TAB PO SCH ×2 (09:35→20:53)
[2021-07-31] MEDS: ASPIRIN 81 MG PO SCH (09:40)
[2021-07-31] MEDS: metroNIDAZOLE 500 MG TAB PO SCH ×3 (09:49→20:53)
[2021-07-31] MEDS: LIOTHYRONINE SODIUM 5 MCG TAB PO SCH (09:49)
[2021-07-31] MEDS: COLLAGENASE 250 UNIT/GM OINTMENT 30 GM TUBE TOPICAL SCH (10:45)
--- NOTE | 2021-07-31 11:09 | PN ---
PROGRESS NOTE This is a 71-year-old female. Patient has been going for local wound care with Dr. Jain in the wound clinic. Patient came in through the emergency room with the left foot wet gangrene of the second toe with marked redness and swelling of the dorsal aspect of the foot. The patient was taken to the OR, we did the ray amputation of the second toe. The patient has history of peripheral vascular disease, diabetes. Left leg angiogram shows left SFA has an occlusion of the SFA at the [place] and also patient has a severe infrapopliteal disease and the posterior tibial peroneal is occluded. The anterior tibial is open but has atherosclerosis disease and high-grade stenosis noted. Today we have changed the dressing. There is still some devitalized tissue and also the base of the 3rd toe is also involved with some devitalized tissue, but no drainage noted. PLAN: We will use Santyl cream. The patient is going to follow with Dr. Jain's office on Sunday for further vascular evaluation and intervention. In the meantime we will continue with Santyl cream. Prognosis is guarded. MMODL / IJN: [id number] /
[2021-07-31 11:49] LABS: Glucose,Whole Blood 269 mg/dL (75-99)
[2021-07-31] MEDS: SODIUM CHLORIDE 0.9% 1,000 ML IV SCH (12:45)
[2021-07-31] MEDS ORDERED: SODIUM POLYSTYRENE SULFONATE 15 GM/60 ML BOTTLE PO STA (16:12)
[2021-07-31 17:08] LABS: Glucose,Whole Blood 328 mg/dL (75-99)
[2021-07-31] MEDS ORDERED: INSULIN ASPART (NovoLOG) 100 UNIT/ML VIAL SQ SCH (17:45)
[2021-07-31 20:37] LABS: Glucose,Whole Blood 262 mg/dL (75-99)
[2021-07-31] MEDS: ACETAMINOPHEN TAB 325 MG TAB PO PRN (20:54)
[2021-07-31] MEDS: ATORVASTATIN 80 MG TAB PO SCH (20:54)
[2021-07-31] MEDS: INSULIN DETEMIR (LEVEMIR) 100 UNIT/ML SYR SQ SCH (20:56)
--- NOTE | 2021-07-31 23:21 | P.PN ---
Subjective Progress Note Date: 07/31/21 Principal diagnosis: Left second toe gangrene status post amputation. Patient is a 71-year-old female coronary artery disease with history of stent placement on 07/16/2021, coronary artery disease, diabetes type 2 uncontrolled, hypertension, hyperlipidemia, peripheral vascular disease, obstructive sleep apnea, morbid obesity with BMI 48.4 presents to ER with complaints of left second toe infection. Patient was treated with antibiotics while in the hospital recently. Bone scan was negative for any osteomyelitis. Wound cultures were growing Pseudomonas. Patient was discharged on 07/20/2021. Patient was continued on cefepime while in the hospital. Patient does go to the wound care center. Patient does have history of diabetic peripheral neuropathy. Foot x-ray showed old fracture of the metatarsal. No evidence of osteo- mellitus. No adverse change compared to old exam. Laboratory data showed WBC 13.6 hemoglobin 11.2 and platelets 387 Sodium 136 potassium 5.7 chloride 106 bicarb is 21 BUN 28 creatinine 0.97 and blood sugar is 281 07/25/2021 Patient is awake alert and oriented 3. Sitting in a chair comfortably. Scheduled for left second toe amputation today. Patient was hypoglycemic this afternoon and was started on D5 normal saline. Continue with antibiotics cefepime as per ID recommendations. Next and laboratory data showed LBCD 12.6 hemoglobin 9.0 and platelets 340 BUN 31 and creatinine 1.1 blood sugar 232 in the a.m. Patient has been afebrile. No nausea vomiting or abdominal pain or diarrhea. No dysuria or hematuria. 07/26/2021 Patient is status post left second toe amputation postoperative day 1 Currently sitting in chair comfortably. Dressing changes to be done by vascular surgery. No complaints of fever or chills. Blood sugar is better controlled. Laboratory data showed WBC 16.1 hemoglobin 9.6 and platelets 382 BUN 33 and creatinine 1.2 Patient is being continued on antibiotics in the form of cefepime. ID and restless is on board. 9121 Patient is currently lying in the bed comfortably. Awake alert 1x3 no complaints of fever or chills. Currently at 98% on room air. No cough or sputum production. Complaints of left foot pain. Patient was complaining of shortness of breath this afternoon. Chest x-ray was ordered which showed some pleural reaction and fluid left costophrenic angle which is new compared to recent exam. Patient was increased with incentive spirometry. Laboratory data showed WBC 15.0 hemoglobin 8.6 and platelets 375 BUN 135 creatinine 5.2 chloride 108 bicarb 19 BUN 37 creatinine 1.24 blood sugar is 143 9221 Patient states that she feels better today. Left foot pain is improved with medications. No complaints of chest pain or shortness of breath. Patient is on room air. Patient is tolerating oral diet and reduce IV fluid rate. Encouraged with incentive spirometry. Patient is being continued on antibiotics in the form of cefepime. Next and laboratory data showed WBC 15.0, hemoglobin 9.2) history 79 BUN 38 and creatinine came down to 1.2 and blood sugar is 191. Patient has been afebrile. Dressing change was done by vascular surgery. ID is on board. Chest x-ray showed there is some pleural reaction and fluid left costophrenic angle which is new compared to recent exam. 07/29/2021 Patient is seen and evaluated and follow-up and was evaluated at bedside by Dr. Ansari and recommending holding discharge to ECF and would like to do an angiogram in the morning and patient will be nothing by mouth at midnight. Discussed with nursing staff about anticoagulation as she is currently on aspirin and Brilinta along with subcutaneous heparin and unsure if this will need to be held for angiogram. Vascular surgery following closely along with infectious disease. Patient will continue on IV cefepime along with oral Flagyl. She did receive a midline today and will require IV antibiotic therapy the outpatient setting when going to ECF. 07/30/2021 Patient is lying in the bed. Awake alert and oriented 3. No complaints of dizziness or lightheadedness. The patient dislikes keystone after procedure. Patient underwent left lower activity angiogram. Showed Mid SFA short segment total occlusion. Peroneal and posterior tibial occluded. Anterior tibial has to segment high-grade stenosis. Patient denied any complains of chest pain or shortness of breath. Left foot wound stump dressing change. Wound cultures growing anaerobic gram-negative bacilli. Patient is on antibiot ics of cefepime. Laboratory data showed WBC 15.0 hemoglobin 9.4 and platelets 429 Sodium 134 potassium 5.6 chloride 109. BUN 46 and creatinine 1.13, calcium 10.4 9.5 21 Patient is currently lying in the bed. Awake alert and oriented x3. Left foot pain is controlled with medications. Left third toe seems to be slightly discolored. Patient has been afebrile. Vascular surgery is on board and is status post angiogram. Patient was recommended to follow-up with vascular surgery in the clinic. Patient follows with Dr. Barclay as an outpatient. Laboratory data showed WBC 19.1 hemoglobin 9.1 and platelets 494 Sodium 133 potassium 5.7 chloride 108 blood sugar is 253 calcium 10.6. Patient is being continued antibiotics Vanco cefepime. ID is on board. Anaerobic cultures showed gram-negative bacilli. Patient has been afebrile. Tolerating oral diet. Discussed with the family at bedside in detail. current medications reviewed. Objective - Vital Signs Vital signs: Vital Signs Temp 97.8 F 07/31/21 09:31 Pulse 66 07/31/21 09:31 Resp 19 07/31/21 09:31 BP 134/53 07/31/21 09:31 Pulse Ox 98 07/31/21 09:31 Intake & Output 07/30/21 07/31/21 07/31/21 18:59 06:59 18:59 Intake Total 220 200 0 Output Total 300 600 Balance -80 200 -600 Weight 143.2 kg Intake: IV 100 Intake, IV Titration 200 Amount Sodium Chloride 0.9% 1, 200 000 ml @ 50 mls/hr IV . Q20H [facility] Rx#:[id number] Oral 120 0 Output: Urine 300 600 Other: Voiding Method Bedside Commode Bedside Commode # Voids 1 1 # Bowel Movements 1 1 - Exam PHYSICAL EXAMINATION: GENERAL: Comfortably lying up in the bed appears to be no acute distress. Morbidly Obese HEENT: Pupils are round and equally reacting to light. EOMI. No scleral icterus. No conjunctival pallor. CARDIOVASCULAR: S1 and S2 present. No murmurs, rubs, or gallops. PULMONARY: Bilateral breath sounds positive. Diminshed at bases.No wheezing, mi ld crackles at bases. ABDOMEN: Soft,non -tender, normal bowel sounds. No guarding or rigidity. MUSCULOSKELETAL: No joint swelling or deformity. EXTREMITIES: No edema. Left second toe amputation site is patent. Third toe slightly discolored., positive for tenderness. NEUROLOGICAL: Gross neurological examination did not reveal any focal deficits. SKIN:No rash, intact. - Labs CBC & Chem 7: 07/31/21 07:21 07/31/21 20:31 Labs: Abnormal Lab Results - Last 24 Hours (Table) 07/30/21 07/30/21 07/30/21 Range/Units 11:44 12:27 12:27 WBC 15.0 H (3.8-10.6) k/uL RBC 3.38 L (3.80-5.40) m/uL Hgb 9.4 L (11.4-16.0) gm/dL Hct 28.3 L (34.0-46.0) % Plt Count (150-450) k/uL Neutrophils # 14.1 H (1.3-7.7) k/uL Lymphocytes # 0.5 L (1.0-4.8) k/uL Sodium 134 L (137-145) mmol/L Potassium 5.6 H (3.5-5.1) mmol/L Chloride 109 H (98-107) mmol/L Carbon Dioxide 17 L (22-30) mmol/L BUN 46 H (7-17) mg/dL Creatinine 1.13 H (0.52-1.04) mg/dL Glucose 151 H (74-99) mg/dL POC Glucose (mg/dL) 146 H (75-99) mg/dL Calcium 10.4 H (8.4-10.2) mg/dL 07/30/21 07/30/21 07/31/21 Range/Units 16:31 20:34 06:06 WBC (3.8-10.6) k/uL RBC (3.80-5.40) m/uL Hgb (11.4-16.0) gm/dL Hct (34.0-46.0) % Plt Count (150-450) k/uL Neutrophils # (1.3-7.7) k/uL Lymphocytes # (1.0-4.8) k/uL Sodium (137-145) mmol/L Potassium (3.5-5.1) mmol/L Chloride (98-107) mmol/L Carbon Dioxide (22-30) mmol/L BUN (7-17) mg/dL Creatinine (0.52-1.04) mg/dL Glucose (74-99) mg/dL POC Glucose (mg/dL) 276 H 348 H 287 H (75-99) mg/dL Calcium (8.4-10.2) mg/dL 07/31/21 07/31/21 Range/Units 07:21 07:21 WBC 19.1 H (3.8-10.6) k/uL RBC 3.24 L (3.80-5.40) m/uL Hgb 9.1 L (11.4-16.0) gm/dL Hct 27.2 L (34.0-46.0) % Plt Count 494 H (150-450) k/uL Neutrophils # 17.4 H (1.3-7.7) k/uL Lymphocytes # 0.8 L (1.0-4.8) k/uL Sodium 133 L (137-145) mmol/L Potassium 5.7 H (3.5-5.1) mmol/L Chloride 108 H (98-107) mmol/L Carbon Dioxide 17 L (22-30) mmol/L BUN 49 H (7-17) mg/dL Creatinine 1.13 H (0.52-1.04) mg/dL Glucose 253 H (74-99) mg/dL POC Glucose (mg/dL) (75-99) mg/dL Calcium 10.6 H (8.4-10.2) mg/dL Assessment and Plan Assessment: Left second toe gangrenous changes with diabetic foot infection. Recent cultures growing Pseudomonas and staph aureus. Status post amputation on 07/25/2021 Status post left lower extremity angiogram on 07/30/2021. Recent NSTEMI status post stenting of LAD on 07/16/2021 History of coronary artery disease status post stenting Hypertension Diabetes mellitus2 with hyperglycemia and uncontrolled. Diabetic retinopathy and peripheral neuropathy Hypertension Multiple joint osteoarthritis Obstructive sleep apnea noncompliant with CPAP Ischemic cardiomyopathy History of CVA/TIA Obstructive sleep apnea noncompliant with CPAP Thyroid disorder Migraine headaches Morbid obesity with BMI of 48.4 Mild protein calorie malnutrition Osteoporosis Bilateral tinnitus Bilateral toe wounds Diabetic neuropathy Bilateral hammertoes History of right knee arthroplasty History of chronic low back pain History of hysterectomy Plan: Patient will be continued on antibiotics in the form of cefepime. Patient was given a dose of Zosyn initially. Continue with pain management and follow up culture reports. Vascular surgery and ID is following. Patient is status post left lower extremity angiogram. Patient is status post left second toe amputation... Continue with pain management. . gentle IV hydration. Continue with home dose of insulin regimen insulin sliding scale for blood pressure control. continue with aspirin, Brilinta and statins due to recent history of stent plac ement. Encourage incentive spirometry. Follow up closely. Prognosis is guarded this time. Time with Patient: Greater than 30
--- NOTE | 2021-07-31 23:37 | PN ---
PROGRESS NOTE DATE OF SERVICE: 07/31/2021 REASON FOR FOLLOWUP: Left second toe gangrene. INTERVAL HISTORY: The patient is afebrile. She is breathing comfortably. Denies having any chest pain, no shortness of breath. No abdominal pain or any worsening pain to the left foot area. PHYSICAL EXAMINATION: Blood pressure 167/70 with a pulse of 71, temperature 98.3. She is 96% on room air. General description is an elderly female lying in bed in no distress. Respiratory system: Unlabored breathing, clear to auscultation anteriorly. Heart S1, S2. Regular rate and rhythm. Abdomen soft, no tenderness. Left foot is currently dressed. LABS: Hemoglobin 9.1, white count 19.1, BUN of 47, creatinine is 1.13. Local culture positive for anaerobic Gram-negative bacilli. DIAGNOSTIC IMPRESSION AND PLAN: Patient with left second toe gangrene status post amputation. Angiogram subsequently shows evidence of peripheral arterial disease. Patient had previous culture positive for MSSA and Pseudomonas and the patient is currently on cefepime and Flagyl. The white count still trending up and needs to be monitored closely. Local care to continue per Surgery and continue supportive care. MMODL / IJN: [id number] /
[2021-08-01 06:36] LABS: Glucose,Whole Blood 125 mg/dL (75-99)
[2021-08-01] MEDS: INSULIN ASPART (NovoLOG) 100 UNIT/ML VIAL SQ SCH ×6 (06:37→16:55)
[2021-08-01] MEDS: LEVOTHYROXINE 50 MCG TAB PO SCH (06:40)
[2021-08-01] MEDS: carvediloL 12.5 MG TAB PO SCH ×2 (06:40→16:55)
[2021-08-01] MEDS: GLIMEPIRIDE 4 MG TAB PO SCH (06:40)
[2021-08-01 07:36] LABS: Basophils # (A) 0.1 k/uL (0-0.2); Basophils % (A) 0 %; Eosinophils # (A) 0.4 k/uL (0-0.7); Eosinophils % (A) 2 %; HGB 9.1 gm/dL (11.4-16.0); Hypochromasia Slight; Lymphocytes # (A) 1.5 k/uL (1.0-4.8); Lymphocytes % (A) 9 %; MCH 27.3 pg (25.0-35.0); MCHC 32.3 g/dL (31.0-37.0); MCV 84.6 fL (80.0-100.0); Mean Platelet Volume 6.8; Monocytes # (A) 0.9 k/uL (0-1.0); Monocytes % (A) 6 %; Neutrophils # (A) 13.8 k/uL (1.3-7.7); Neutrophils % (A) 82 %; Platelet Count 504 k/uL (150-450); RBC 3.31 m/uL (3.80-5.40); RDW 14.7 % (11.5-15.5); WBC 16.8 k/uL (3.8-10.6)
[2021-08-01 07:46] LABS: Calcium 10.5 mg/dL (8.4-10.2); Potassium 5.6 mmol/L (3.5-5.1)
[2021-08-01] MEDS: ASPIRIN 81 MG PO SCH (08:53)
[2021-08-01] MEDS: CEFEPIME 2 GM in SODIUM CHLORIDE 0.9% 100 ML IVPB SCH ×2 (08:53→19:55)
[2021-08-01] MEDS: ARIPiprazole 5 MG TAB PO SCH (08:53)
[2021-08-01] MEDS: HEPARIN SODIUM,PORCINE/PF 5,000 UNIT/0.5 ML SYRINGE SQ SCH ×3 (08:53→16:55)
[2021-08-01] MEDS: VALSARTAN 160 MG TAB PO SCH ×2 (08:54→19:56)
[2021-08-01] MEDS: CHOLECALCIFEROL 25 MCG (1000 IU) TABLET PO SCH (08:54)
[2021-08-01] MEDS: metroNIDAZOLE 500 MG TAB PO SCH ×3 (08:54→19:55)
[2021-08-01] MEDS: ACETAMINOPHEN TAB 325 MG TAB PO PRN (08:54)
[2021-08-01] MEDS: SERTRALINE 50 MG TAB PO SCH (08:54)
[2021-08-01] MEDS: TICAGRELOR 90 MG TAB PO SCH ×2 (08:54→19:55)
[2021-08-01] MEDS: CALCIUM CARBONATE 500 MG CHEWABLE PO SCH (08:54)
[2021-08-01] MEDS: GABAPENTIN 300 MG CAP PO SCH ×3 (08:54→19:55)
[2021-08-01] MEDS: COLLAGENASE 250 UNIT/GM OINTMENT 30 GM TUBE TOPICAL SCH (10:04)
[2021-08-01] MEDS: SODIUM CHLORIDE 0.9% 1,000 ML IV SCH ×2 (10:56→17:29)
[2021-08-01 11:48] LABS: Glucose,Whole Blood 186 mg/dL (75-99)
[2021-08-01] MEDS ORDERED: SODIUM BICARB 8.4% 50 ML SYR (1 MEQ/ML) IV ONE (11:51)
[2021-08-01] MEDS ORDERED: INSULIN REGULAR 100 UNIT/ML VIAL (IV) IV ONE (11:51)
[2021-08-01] MEDS ORDERED: DEXTROSE 50% SYRINGE 50 ML IVP ONE (11:51)
[2021-08-01] MEDS ORDERED: SODIUM POLYSTYRENE SULFONATE 15 GM/60 ML BOTTLE PO ONE (11:51)
[2021-08-01] MEDS: LIOTHYRONINE SODIUM 5 MCG TAB PO SCH (12:48)
[2021-08-01 16:41] LABS: Glucose,Whole Blood 273 mg/dL (75-99)
[2021-08-01] MEDS: ATORVASTATIN 80 MG TAB PO SCH (19:55)
[2021-08-01 20:30] LABS: Glucose,Whole Blood 177 mg/dL (75-99)
[2021-08-01] MEDS: INSULIN DETEMIR (LEVEMIR) 100 UNIT/ML SYR SQ SCH (20:52)
--- NOTE | 2021-08-01 21:08 | PN ---
PROGRESS NOTE DATE OF SERVICE: 08/01/2021 REASON FOR FOLLOWUP: Left 2nd toe gangrene and osteomyelitis. INTERVAL HISTORY: The patient is afebrile. She is breathing comfortably. Denies having chest pain or cough. No nausea. No vomiting. No abdominal pain or worsening pain to the left foot area. PHYSICAL EXAMINATION: Her blood pressure is 130/74, pulse 74, temperature 98. She is 97% on room air. General description is an elderly female lying in bed in no distress. Respiratory system: Unlabored breathing, decreased breath sounds in the base, with no wheeze. Heart S1, S2. Regular rate and rhythm. Abdomen soft, no tenderness. The left foot is currently dressed. No drainage on the dressing. LABS: Hemoglobin 9.1, white count 15.8, BUN of 51, creatinine 1.11. Local culture with aerobic Gram-negative bacilli. DIAGNOSTIC IMPRESSION AND PLAN: Patient with left second toe gangrene status post amputation. Local culture with anaerobes. Culture positive for MSSA Pseudomonas. Patient is covered cefepime and Flagyl. White count trending down. Local care to continue with Aquacel Silver dressing. Continue supportive care. MMODL / IJN: [id number] /
[2021-08-02] MEDS: HEPARIN SODIUM,PORCINE/PF 5,000 UNIT/0.5 ML SYRINGE SQ SCH ×4 (00:08→23:10)
--- NOTE | 2021-08-02 00:28 | P.PN ---
Subjective Progress Note Date: 08/01/21 Principal diagnosis: Left second toe gangrene status post amputation. Patient is a 71-year-old female coronary artery disease with history of stent placement on 07/16/2021, coronary artery disease, diabetes type 2 uncontrolled, hypertension, hyperlipidemia, peripheral vascular disease, obstructive sleep apnea, morbid obesity with BMI 48.4 presents to ER with complaints of left second toe infection. Patient was treated with antibiotics while in the hospital recently. Bone scan was negative for any osteomyelitis. Wound cultures were growing Pseudomonas. Patient was discharged on 07/20/2021. Patient was continued on cefepime while in the hospital. Patient does go to the wound care center. Patient does have history of diabetic peripheral neuropathy. Foot x-ray showed old fracture of the metatarsal. No evidence of osteo- mellitus. No adverse change compared to old exam. Laboratory data showed WBC 13.6 hemoglobin 11.2 and platelets 387 Sodium 136 potassium 5.7 chloride 106 bicarb is 21 BUN 28 creatinine 0.97 and blood sugar is 281 07/25/2021 Patient is awake alert and oriented 3. Sitting in a chair comfortably. Scheduled for left second toe amputation today. Patient was hypoglycemic this afternoon and was started on D5 normal saline. Continue with antibiotics cefepime as per ID recommendations. Next and laboratory data showed LBCD 12.6 hemoglobin 9.0 and platelets 340 BUN 31 and creatinine 1.1 blood sugar 232 in the a.m. Patient has been afebrile. No nausea vomiting or abdominal pain or diarrhea. No dysuria or hematuria. 07/26/2021 Patient is status post left second toe amputation postoperative day 1 Currently sitting in chair comfortably. Dressing changes to be done by vascular surgery. No complaints of fever or chills. Blood sugar is better controlled. Laboratory data showed WBC 16.1 hemoglobin 9.6 and platelets 382 BUN 33 and creatinine 1.2 Patient is being continued on antibiotics in the form of cefepime. ID and restless is on board. 9121 Patient is currently lying in the bed comfortably. Awake alert 1x3 no complaints of fever or chills. Currently at 98% on room air. No cough or sputum production. Complaints of left foot pain. Patient was complaining of shortness of breath this afternoon. Chest x-ray was ordered which showed some pleural reaction and fluid left costophrenic angle which is new compared to recent exam. Patient was increased with incentive spirometry. Laboratory data showed WBC 15.0 hemoglobin 8.6 and platelets 375 BUN 135 creatinine 5.2 chloride 108 bicarb 19 BUN 37 creatinine 1.24 blood sugar is 143 9221 Patient states that she feels better today. Left foot pain is improved with medications. No complaints of chest pain or shortness of breath. Patient is on room air. Patient is tolerating oral diet and reduce IV fluid rate. Encouraged with incentive spirometry. Patient is being continued on antibiotics in the form of cefepime. Next and laboratory data showed WBC 15.0, hemoglobin 9.2) history 79 BUN 38 and creatinine came down to 1.2 and blood sugar is 191. Patient has been afebrile. Dressing change was done by vascular surgery. ID is on board. Chest x-ray showed there is some pleural reaction and fluid left costophrenic angle which is new compared to recent exam. 07/29/2021 Patient is seen and evaluated and follow-up and was evaluated at bedside by Dr. Ansari and recommending holding discharge to ECF and would like to do an angiogram in the morning and patient will be nothing by mouth at midnight. Discussed with nursing staff about anticoagulation as she is currently on aspirin and Brilinta along with subcutaneous heparin and unsure if this will need to be held for angiogram. Vascular surgery following closely along with infectious disease. Patient will continue on IV cefepime along with oral Flagyl. She did receive a midline today and will require IV antibiotic therapy the outpatient setting when going to ECF. 07/30/2021 Patient is lying in the bed. Awake alert and oriented 3. No complaints of dizziness or lightheadedness. The patient dislikes keystone after procedure. Patient underwent left lower activity angiogram. Showed Mid SFA short segment total occlusion. Peroneal and posterior tibial occluded. Anterior tibial has to segment high-grade stenosis. Patient denied any complains of chest pain or shortness of breath. Left foot wound stump dressing change. Wound cultures growing anaerobic gram-negative bacilli. Patient is on antibiot ics of cefepime. Laboratory data showed WBC 15.0 hemoglobin 9.4 and platelets 429 Sodium 134 potassium 5.6 chloride 109. BUN 46 and creatinine 1.13, calcium 10.4 9.5 21 Patient is currently lying in the bed. Awake alert and oriented x3. Left foot pain is controlled with medications. Left third toe seems to be slightly discolored. Patient has been afebrile. Vascular surgery is on board and is status post angiogram. Patient was recommended to follow-up with vascular surgery in the clinic. Patient follows with Dr. Barclay as an outpatient. Laboratory data showed WBC 19.1 hemoglobin 9.1 and platelets 494 Sodium 133 potassium 5.7 chloride 108 blood sugar is 253 calcium 10.6. Patient is being continued antibiotics Vanco cefepime. ID is on board. Anaerobic cultures showed gram-negative bacilli. Patient has been afebrile. Tolerating oral diet. Discussed with the family at bedside in detail. 08/01/2021 Patient is currently resting in the bed comfortably. Awake alert and oriented x3. Patient states that she feels weak today. Left lower extremity pain is improved. No complaints of chest pain shortness of breath. Patient is being continued antibiotics in the form of Flagyl. Patient has been afebrile. Laboratory data showed WBC improved to 16.8, hemoglobin 9.1 and platelets 504 Sodium 137 potassium 5.6, BUN 51 and creatinine 1.11 Patient was given another dose of insulin/D50 for hyperkalemia. Also started on low potassium diet. hold ARB current medications reviewed. Objective - Vital Signs Vital signs: Vital Signs Temp 97.9 F 08/01/21 20:00 Pulse 70 08/01/21 20:00 Resp 18 08/01/21 20:00 BP 132/62 08/01/21 20:00 Pulse Ox 97 08/01/21 20:00 Intake & Output 08/01/21 08/01/21 08/02/21 06:59 18:59 06:59 Intake Total 970 1000 485 Output Total 338 202 5721 Balance 670 100 -715 Weight 143.7 kg Intake: Oral 970 1000 485 Output: Urine 594 514 4101 Other: Voiding Method Bedside Commode Bedside Commode Bedside Commode # Voids 450 # Bowel Movements 1 - Exam PHYSICAL EXAMINATION: GENERAL: Comfortably lying up in the bed appears to be no acute distress. Morbidly Obese HEENT: Pupils are round and equally reacting to light. EOMI. No scleral icterus. No conjunctival pallor. CARDIOVASCULAR: S1 and S2 present. No murmurs, rubs, or gallops. PULMONARY: Bilateral breath sounds positive. Diminshed at bases.No wheezing, mild crackles at bases. ABDOMEN: Soft,non -tender, normal bowel sounds. No guarding or rigidity. MUSCULOSKELETAL: No joint swelling or deformity. EXTREMITIES: No edema. Left second toe amputation site is patent. Third toe slightly discolored., positive for tenderness. NEUROLOGICAL: Gross neurological examination did not reveal any focal deficits. SKIN:No rash, intact. - Labs CBC & Chem 7: 08/01/21 07:09 08/01/21 15:31 Labs: Abnormal Lab Results - Last 24 Hours (Table) 08/01/21 08/01/21 08/01/21 Range/Units 06:25 07:09 07:09 WBC 16.8 H (3.8-10.6) k/uL RBC 3.31 L (3.80-5.40) m/uL Hgb 9.1 L (11.4-16.0) gm/dL Hct 28.0 L (34.0-46.0) % Plt Count 504 H (150-450) k/uL Neutrophils # 13.8 H (1.3-7.7) k/uL Potassium 5.6 H (3.5-5.1) mmol/L Chloride 111 H (98-107) mmol/L Carbon Dioxide 18 L (22-30) mmol/L BUN 51 H (7-17) mg/dL Creatinine 1.11 H (0.52-1.04) mg/dL Glucose 115 H (74-99) mg/dL POC Glucose (mg/dL) 125 H (75-99) mg/dL Calcium 10.5 H (8.4-10.2) mg/dL 08/01/21 08/01/21 08/01/21 Range/Units 11:47 15:31 16:37 WBC (3.8-10.6) k/uL RBC (3.80-5.40) m/uL Hgb (11.4-16.0) gm/dL Hct (34.0-46.0) % Plt Count (150-450) k/uL Neutrophils # (1.3-7.7) k/uL Potassium 5.2 H (3.5-5.1) mmol/L Chloride (98-107) mmol/L Carbon Dioxide (22-30) mmol/L BUN (7-17) mg/dL Creatinine (0.52-1.04) mg/dL Glucose (74-99) mg/dL POC Glucose (mg/dL) 186 H 273 H (75-99) mg/dL Calcium (8.4-10.2) mg/dL 08/01/21 Range/Units 20:11 WBC (3.8-10.6) k/uL RBC (3.80-5.40) m/uL Hgb (11.4-16.0) gm/dL Hct (34.0-46.0) % Plt Count (150-450) k/uL Neutrophils # (1.3-7.7) k/uL Potassium (3.5-5.1) mmol/L Chloride (98-107) mmol/L Carbon Dioxide (22-30) mmol/L BUN (7-17) mg/dL Creatinine (0.52-1.04) mg/dL Glucose (74-99) mg/dL POC Glucose (mg/dL) 177 H (75-99) mg/dL Calcium (8.4-10.2) mg/dL Assessment and Plan Assessment: Left second toe gangrenous changes with diabetic foot infection. Recent cultures growing Pseudomonas and staph aureus. Status post amputation on 07/25/2021 Status post left lower extremity angiogram on 07/30/2021.Cultures growing anaerobic gram-negative bacilli. Recent NSTEMI status post stenting of LAD on 07/16/2021 History of coronary artery disease status post stenting Hypertension Diabetes mellitus2 with hyperglycemia and uncontrolled. Diabetic retinopathy and peripheral neuropathy Hypertension Multiple joint osteoarthritis Obstructive sleep apnea noncompliant with CPAP Ischemic cardiomyopathy EF 40-45% History of CVA/TIA Obstructive sleep apnea noncompliant with CPAP Thyroid disorder Migraine headaches Morbid obesity with BMI of 48.4 Mild protein calorie malnutrition Osteoporosis Bilateral tinnitus Bilateral toe wounds Diabetic neuropathy Bilateral hammertoes History of right knee arthroplasty History of chronic low back pain History of hysterectomy Plan: Patient will be continued on antibiotics in the form of flagyl. Continue with pain management and follow up culture reports. Vascular surgery and ID is following. Patient is status post left lower extremity angiogram. Patient is status post left second toe amputation... Continue with pain management. . gentle IV hydration. Continue with home dose of insulin regimen insulin sliding scale for blood pressure control. continue with aspirin, Brilinta and statins due to recent history of stent placement. Encourage incentive spirometry. Follow up closely. Prognosis is guarded this time. Time with Patient: Greater than 30
[2021-08-02 06:13] LABS: Glucose,Whole Blood 192 mg/dL (75-99)
[2021-08-02] MEDS: carvediloL 12.5 MG TAB PO SCH ×2 (06:37→16:58)
[2021-08-02] MEDS: LEVOTHYROXINE 50 MCG TAB PO SCH (06:37)
[2021-08-02] MEDS: GLIMEPIRIDE 4 MG TAB PO SCH (06:37)
[2021-08-02] MEDS: INSULIN ASPART (NovoLOG) 100 UNIT/ML VIAL SQ SCH ×6 (07:19→16:57)
--- NOTE | 2021-08-02 08:12 | CONS ---
DATE OF CONSULTATION: 07/27/2021 This is a 71-year-old female. The patient was seen with history of left foot second toe gangrene. Patient went for ray amputation. Culture came back multiple gram negative bacilli. We did the ray amputation and wound was kept open. Today we have changed the dressing. We placed Aquacel silver and the patient is on IV antibiotics under care of Infectious Disease. We will change the dressing again on Sunday. MMPAULETTE / NBAN: [id number] / LAURA
[2021-08-02 08:30] LABS: Basophils # (A) 0.1 k/uL (0-0.2); Basophils % (A) 0 %; Eosinophils # (A) 0.4 k/uL (0-0.7); Eosinophils % (A) 3 %; HCT 27.3 % (34.0-46.0); HGB 8.8 gm/dL (11.4-16.0); Hypochromasia Slight; Lymphocytes # (A) 1.5 k/uL (1.0-4.8); Lymphocytes % (A) 12 %; MCH 27.5 pg (25.0-35.0); MCHC 32.2 g/dL (31.0-37.0); MCV 85.2 fL (80.0-100.0); Mean Platelet Volume 6.9; Monocytes # (A) 0.7 k/uL (0-1.0); Monocytes % (A) 5 %; Neutrophils # (A) 10.6 k/uL (1.3-7.7); Neutrophils % (A) 79 %; Platelet Count 465 k/uL (150-450); RDW 14.9 % (11.5-15.5); WBC 13.4 k/uL (3.8-10.6)
[2021-08-02] MEDS: metroNIDAZOLE 500 MG TAB PO SCH ×3 (08:50→21:45)
[2021-08-02] MEDS: CALCIUM CARBONATE 500 MG CHEWABLE PO SCH (08:50)
[2021-08-02] MEDS: TICAGRELOR 90 MG TAB PO SCH ×2 (08:50→20:52)
[2021-08-02] MEDS: ASPIRIN 81 MG PO SCH (08:50)
[2021-08-02] MEDS: CHOLECALCIFEROL 25 MCG (1000 IU) TABLET PO SCH (08:50)
[2021-08-02] MEDS: GABAPENTIN 300 MG CAP PO SCH ×3 (08:50→21:45)
[2021-08-02] MEDS: SERTRALINE 50 MG TAB PO SCH (08:50)
[2021-08-02] MEDS: LIOTHYRONINE SODIUM 5 MCG TAB PO SCH (08:51)
[2021-08-02] MEDS: COLLAGENASE 250 UNIT/GM OINTMENT 30 GM TUBE TOPICAL SCH (08:51)
[2021-08-02] MEDS: ARIPiprazole 5 MG TAB PO SCH (08:51)
[2021-08-02] MEDS: ACETAMINOPHEN TAB 325 MG TAB PO PRN (08:52)
[2021-08-02 12:00] LABS: Glucose,Whole Blood 179 mg/dL (75-99)
--- NOTE | 2021-08-02 13:23 | IR ---
EXAMINATION TYPE: IR angio lower extremity LT DATE OF EXAM: 07/30/2021 COMPARISON: NONE HISTORY: Fluoroscopy time. Fluoroscopy was provided to the referring clinician.
[2021-08-02 16:50] LABS: Glucose,Whole Blood 96 mg/dL (75-99)
--- NOTE | 2021-08-02 18:35 | PN ---
PROGRESS NOTE DATE OF SERVICE: 08/02/2021 REASON FOR FOLLOWUP: Left second toe gangrene and cellulitis. INTERVAL HISTORY: The patient is afebrile. The patient is breathing comfortably. Denies having any chest pain, shortness of breath or cough. No abdominal pain or any worsening pain to the left foot. PHYSICAL EXAMINATION: Blood pressure 152/52 with a pulse of 65, temperature 98.1. She is 98% on room air. GENERAL DESCRIPTION: General description is an elderly female up in the chair in no distress. RESPIRATORY SYSTEM: Unlabored breathing. Clear to auscultation anteriorly. Left foot is currently dressed. No obvious drainage on the dressing. LABS: Hemoglobin is 8.3, white count 13.4, BUN of 40, creatinine 1.04. DIAGNOSTIC IMPRESSION AND PLAN: Patient with left second toe gangrene, status post amputation. Local culture positive for anaerobes. The patient did have elevated white count and evidence of PAD. She will continue with cefepime and oral Flagyl for another 2 weeks with close outpatient followup. Continue with supportive care. MMODL / IJN: [id number] /
[2021-08-02 20:15] LABS: Glucose,Whole Blood 148 mg/dL (75-99)
[2021-08-02] MEDS: INSULIN DETEMIR (LEVEMIR) 100 UNIT/ML SYR SQ SCH (20:52)
[2021-08-02] MEDS: ATORVASTATIN 80 MG TAB PO SCH (20:52)
[2021-08-02] MEDS: ALBUTEROL NEBULIZED 2.5 MG/3 ML INHALATION PRN (22:24)
--- NOTE | 2021-08-02 23:08 | P.PN ---
Subjective Progress Note Date: 08/02/21 Pt is afebrile, continues to complain of weakness but has been working with PT today and ambulating. She continues on cefepime and flagyl per ID. WBC trending down today. Pt evaluated by vascular surgery and noted with occlusion of SFA. Objective - Vital Signs Vital signs: Vital Signs Temp 98.1 F 08/02/21 12:00 Pulse 88 08/02/21 22:36 Resp 16 08/02/21 16:00 BP 162/52 08/02/21 16:00 Pulse Ox 98 08/02/21 16:00 Intake & Output 08/02/21 08/02/21 08/03/21 06:59 18:59 06:59 Intake Total 485 477 Output Total 1300 Balance -815 477 Weight 145.1 kg Intake: Oral 485 477 Output: Urine 1300 Other: Voiding Method Bedside Commode Bedside Commode # Voids 1 1 # Bowel Movements 1 1 - Exam Gen: alert, obese, NAD CV: RRR Lungs: clear throughout Ext: L 2nd toe amputation, no surrounding drainage - Labs CBC & Chem 7: 08/02/21 07:43 08/02/21 07:43 Labs: Abnormal Lab Results - Last 24 Hours (Table) 08/02/21 08/02/21 08/02/21 Range/Units 06:04 07:43 07:43 WBC 13.4 H (3.8-10.6) k/uL RBC 3.20 L (3.80-5.40) m/uL Hgb 8.8 L (11.4-16.0) gm/dL Hct 27.3 L (34.0-46.0) % Plt Count 465 H (150-450) k/uL Neutrophils # 10.6 H (1.3-7.7) k/uL Chloride 111 H (98-107) mmol/L Carbon Dioxide 20 L (22-30) mmol/L BUN 40 H (7-17) mg/dL Glucose 219 H (74-99) mg/dL POC Glucose (mg/dL) 192 H (75-99) mg/dL 08/02/21 08/02/21 Range/Units 11:58 20:11 WBC (3.8-10.6) k/uL RBC (3.80-5.40) m/uL Hgb (11.4-16.0) gm/dL Hct (34.0-46.0) % Plt Count (150-450) k/uL Neutrophils # (1.3-7.7) k/uL Chloride (98-107) mmol/L Carbon Dioxide (22-30) mmol/L BUN (7-17) mg/dL Glucose (74-99) mg/dL POC Glucose (mg/dL) 179 H 148 H (75-99) mg/dL Assessment and Plan Plan: Continue with current managment, continue cefepime and flagyl. Continue with lipitor, brillinta. Recommend outpatient follow up regarding arterial occlusion
[2021-08-02] MEDS ORDERED: FUROSEMIDE 10 MG/ML 4 ML VIAL IV STA (23:32)
[2021-08-03 05:01] VITALS: RESP 20
[2021-08-03] MEDS: GLIMEPIRIDE 4 MG TAB PO SCH (06:53)
[2021-08-03] MEDS: carvediloL 12.5 MG TAB PO SCH (06:53)
[2021-08-03] MEDS: LEVOTHYROXINE 50 MCG TAB PO SCH (06:56)
[2021-08-03 06:57] LABS: Glucose,Whole Blood 135 mg/dL (75-99)
[2021-08-03] MEDS: INSULIN ASPART (NovoLOG) 100 UNIT/ML VIAL SQ SCH ×4 (07:17→12:26)
[2021-08-03] MEDS: ASPIRIN 81 MG PO SCH (09:57)
[2021-08-03] MEDS: ARIPiprazole 5 MG TAB PO SCH (09:57)
[2021-08-03] MEDS: metroNIDAZOLE 500 MG TAB PO SCH (09:57)
[2021-08-03] MEDS: GABAPENTIN 300 MG CAP PO SCH (09:57)
[2021-08-03] MEDS: CHOLECALCIFEROL 25 MCG (1000 IU) TABLET PO SCH (09:57)
[2021-08-03] MEDS: SERTRALINE 50 MG TAB PO SCH (09:57)
[2021-08-03] MEDS: LIOTHYRONINE SODIUM 5 MCG TAB PO SCH (09:58)
[2021-08-03] MEDS: ACETAMINOPHEN TAB 325 MG TAB PO PRN (09:58)
[2021-08-03] MEDS: HEPARIN SODIUM,PORCINE/PF 5,000 UNIT/0.5 ML SYRINGE SQ SCH (09:58)
[2021-08-03] MEDS: TICAGRELOR 90 MG TAB PO SCH (09:58)
[2021-08-03] MEDS: CALCIUM CARBONATE 500 MG CHEWABLE PO SCH (09:58)
[2021-08-03] MEDS: COLLAGENASE 250 UNIT/GM OINTMENT 30 GM TUBE TOPICAL SCH (10:03)
[2021-08-03] MEDS ORDERED: FUROSEMIDE 40 MG TAB PO SCH (10:15)
[2021-08-03 11:29] VITALS: BP 128/60; PULSE 67; TEMP 98.2
--- NOTE | 2021-08-03 11:41 | P.DS ---
Providers Date of admission: 07/23/21 20:00 Expected date of discharge: 08/03/21 Attending physician: Boris Galeano MD Consults: 07/24/21 07:57 Consult Physician Urgent Consulting Provider: Tez Ansari Consult Reason/Comments: gangrene left second toe Do you want consulting provider notified?: Yes 07/24/21 17:04 Consult Physician Routine Consulting Provider: Celestina Peck Consult Reason/Comments: Left toe infection Do you want consulting provider notified?: Yes Primary care physician: Boris Galeano MD Hospital Course: Final Diagnoses: Left second toe gangrene, in a patient with chronic nonhealing diabetic left toe infection, negative for osteomyelitis, status post amputation 07/25/2021. Recent cultures growing Pseudomonas and staph aureus. PAD ,status post left lower extremity angiogram on 07/30/2021.Mid SFA short segment total occlusion, perineal and posterior tibial occluded, anterior tibial has 2 segment high-grade stenosis.Cultures growing anaerobic gram-negative bacilli. Acute CHF exacerbation, systolic dysfunction, EF 40-45% secondary to recent NSTEMI status post stenting of LAD on 07/16/2021 History of coronary artery disease Hypertension Diabetes mellitus2 with hyperglycemia, currently controlled. Diabetic retinopathy and peripheral neuropathy Hypertension Multiple joint osteoarthritis Obstructive sleep apnea noncompliant with CPAP Ischemic cardiomyopathy History of CVA/TIA Hypothyroidism Morbid obesity with BMI of 51.7 Osteoporosis Chronic low back pain Hospital course: This is a 71-year-old female admitted with left second toe g angrene, status post amputation, cultures reporting anaerobes . Maintained on cefepime and Flagyl per ID.Mid SFA short segment total occlusion, perineal and posterior tibial occluded, anterior tibial has 2 segment high-grade stenosis- evaluated by vascular surgery, acute CHF exacerbation, recent AK and multiple other medical issues. Continues on Lipitor, brillinta. Sitting up in chair, no nausea vomiting or diarrhea. Denies abdominal pain. Denies chest pain, palpitations or shortness of breath. Reports minimal productive foamy white cough. Maintaining O2 sats of high 90s on 2 L nasal can nula.Afebrile, T-max 100. Mid line placed for continued IV antibiotic therapy at discharge. Patient will be discharged to [facility] subacute rehab today in a stable condition with guarded prognosis pending final DC recommendations and clearance from ID.Recommend close follow-up with cardiology, vascular surgery and wound care center. Patient reports 20 pound weight gain since recent AK .During the night patient became hypertensive, increased shortness of breath, Lasix initiated with significant clinical improvement. Exam: GENERAL: Alert, obese ,sitting up in chair, NAD NECK: Supple, no JVD CARDIOVASCULAR: RRR PULMONARY: Clear throughout ABDOMEN: Soft,non -tender, normal bowel sounds. No guarding or rigidity. EXTREMITIES: Positive lower extremity edema. Left second toe dressing clean dry and intact, no redness, no drainage. Nontender-diabetic neuropathy NEUROLOGICAL:No focal deficits. SKIN: Warm and dry, no rash Microbiology 07/25/21 17:05 Toe - Left Second Anaerobic Culture - Final Anaerobic Gm Negative Bacilli 07/23/21 17:50 Blood Blood Culture - Final No Growth after 144 hours 07/23/21 18:09 Blood Blood Culture - Final No Growth after 144 hours 07/25/21 17:05 Toe - Left Second Gram Stain - Final 07/25/21 17:05 Toe - Left Second Tissue Culture - Final The impression and plan of care has been dictated as directed. : I performed a history and examination of this patient, discussed the same with the dictator. I agree with the dictator's note ,documented as a scribe. Any additional findings or plans will be noted. Patient Condition at Discharge: Stable Plan - Discharge Summary Discharge Rx Participant: No New Discharge Prescriptions: New Acetaminophen Tab [Tylenol] 650 mg PO Q6HR PRN tab PRN Reason: Fever And/ Or Pain Furosemide [Lasix] 40 mg PO DAILY tab Collagenase [Santyl] 1 applic TOPICAL DAILY gm metroNIDAZOLE [Flagyl] 500 mg PO TID #30 tab Cefepime [Maxipime] 2 gm IVPB Q12H 10 Days #20 each Albuterol Nebulized [Ventolin Nebulized] 2.5 mg INHALATION RT-Q4H PRN ml PRN Reason: Shortness Of Breath INSULIN LISPRO (HumaLOG) [humaLOG] 0 unit SQ ACHS #10 ml INSULIN ASPART (NovoLOG) [NovoLOG (formulary)] 15 unit SQ AC-TID ml Continue Levothyroxine Sodium [Synthroid] 50 mcg PO AC-BRKFST Liothyronine Sodium [Cytomel] 5 mcg PO DAILY Sertraline HCl [Zoloft] 50 mg PO DAILY Cetirizine HCl [Zyrtec] 10 mg PO DAILY PRN PRN Reason: Allergy Symptoms Docusate [Colace] 100 mg PO BID PRN PRN Reason: Constipation Calcium Carbonate [Calcium] 600 mg PO DAILY Aspirin 81 mg PO DAILY #30 chew Ticagrelor [Brilinta] 90 mg PO BID #60 tab Cholecalciferol (Vitamin D3) [Vitamin D3 (5000 Iu)] 125 mcg PO DAILY Glimepiride [Amaryl] 4 mg PO AC-BRKFST Nitroglycerin Sl Tabs [Nitrostat] 0.4 mg SL Q5M PRN PRN Reason: Chest Pain Valsartan [Diovan] 160 mg PO BID #60 tab Atorvastatin [Lipitor] 80 mg PO HS #30 tab Gabapentin 300 mg PO TID #9 cap rOPINIRole HCL [Requip] 0.5 mg PO HS Gentamicin 0.1% Cream 1 applic TOPICAL BID Diclofenac Sodium Gel [Voltaren Gel] 4 gm TOPICAL QID PRN PRN Reason: Leg pain ARIPiprazole [Abilify] 5 mg PO DAILY carvediloL [Coreg*] 12.5 mg PO BID-W/MEALS #60 tab Insulin Glargine [Lantus Vial] 65 unit SQ HS #0 Discontinued Ciprofloxacin HCl [Cipro] 500 mg PO BID 10 Days #20 tab INSULIN ASPART (NovoLOG) [NovoLOG (formulary)] 6 units SQ AC-TID INSULIN ASPART (NovoLOG) [NovoLOG (formulary)] See Protocol SQ AC-TID Discharge Medication List Levothyroxine Sodium [Synthroid] 50 mcg PO AC-BRKFST 08/21/17 [History] Cetirizine HCl [Zyrtec] 10 mg PO DAILY PRN 05/06/20 [History] Liothyronine Sodium [Cytomel] 5 mcg PO DAILY 05/06/20 [History] Sertraline HCl [Zoloft] 50 mg PO DAILY 05/06/20 [History] Calcium Carbonate [Calcium] 600 mg PO DAILY 07/15/20 [History] Docusate [Colace] 100 mg PO BID PRN 07/15/20 [History] Aspirin 81 mg PO DAILY #30 chew 08/01/20 [Rx] Ticagrelor [Brilinta] 90 mg PO BID #60 tab 09/06/20 [Rx] Cholecalciferol (Vitamin D3) [Vitamin D3 (5000 Iu)] 125 mcg PO DAILY 02/18/21 [History] Glimepiride [Amaryl] 4 mg PO AC-BRKFST 04/07/21 [History] ARIPiprazole [Abilify] 5 mg PO DAILY 07/16/21 [History] Diclofenac Sodium Gel [Voltaren Gel] 4 gm TOPICAL QID PRN 07/16/21 [History] Gentamicin 0.1% Cream 1 applic TOPICAL BID 07/16/21 [History] Nitroglycerin Sl Tabs [Nitrostat] 0.4 mg SL Q5M PRN 07/16/21 [History] rOPINIRole HCL [Requip] 0.5 mg PO HS 07/16/21 [History] Atorvastatin [Lipitor] 80 mg PO HS #30 tab 07/20/21 [Rx] Insulin Glargine [Lantus Vial] 65 unit SQ HS #0 07/20/21 [Rx] Valsartan [Diovan] 160 mg PO BID #60 tab 07/20/21 [Rx] carvediloL [Coreg*] 12.5 mg PO BID-W/MEALS #60 tab 07/20/21 [Rx] Acetaminophen Tab [Tylenol] 650 mg PO Q6HR PRN tab 07/29/21 [Rx] Albuterol Nebulized [Ventolin Nebulized] 2.5 mg INHALATION RT-Q4H PRN ml 07/29/21 [Rx] Cefepime [Maxipime] 2 gm IVPB Q12H 10 Days #20 each 07/29/21 [Rx] Gabapentin 300 mg PO TID #9 cap 07/29/21 [Rx] metroNIDAZOLE [Flagyl] 500 mg PO TID #30 tab 07/29/21 [Rx] Collagenase [Santyl] 1 applic TOPICAL DAILY gm 08/03/21 [Rx] Furosemide [Lasix] 40 mg PO DAILY tab 08/03/21 [Rx] INSULIN ASPART (NovoLOG) [NovoLOG (formulary)] 15 unit SQ AC-TID ml 08/03/21 [Rx] INSULIN LISPRO (HumaLOG) [humaLOG] 0 unit SQ ACHS #10 ml 08/03/21 [Rx] Follow up Appointment(s)/Referral(s): [facility] Olivia [NON-STAFF] - Boris Galeano MD [Primary Care Provider] - 1 Week (After DC from subacute rehab) Tez Ansari MD [STAFF PHYSICIAN] - 2 Weeks [facility] [Provider Group] - 1 Week (As previously scheduled) [facility] [NON-STAFF] - 1 Week Activity/Diet/Wound Care/Special Instructions: Wanda Randall carb diet incentive spirometer 10 times every hour while awake Continue with touchdown weightbearing of heel touch CBC, BMP in 3 days Discharge Disposition: TRANSFER TO SNF/ECF
[2021-08-03 11:58] LABS: Glucose,Whole Blood 188 mg/dL (75-99)
[2021-08-03] MEDS ORDERED: CEFEPIME 2 GM in SODIUM CHLORIDE 0.9% 100 ML IVPB SCH (12:45)
--- NOTE | 2021-08-03 12:53 | PN ---
PROGRESS NOTE DATE OF SERVICE: 08/03/2021 REASON FOR FOLLOWUP: Left second toe gangrene. INTERVAL HISTORY: The patient is afebrile. She is breathing comfortably. No chest pain or cough. No abdominal pain or any worsening pain to the left foot. PHYSICAL EXAMINATION: Her blood pressure is 128/60 with a pulse of 55, temperature 98.2. She is 98% on 2 L nasal cannula. GENERAL DESCRIPTION: General description is a middle-aged female in no distress. Left foot is currently dressed. No drainage on the dressing. LABS: No new labs have been obtained today. DIAGNOSTIC IMPRESSION AND PLAN: Patient with left second toe gangrene, status post amputation. Culture with anaerobes. Previous culture MSSA. She will continue with cefepime and Flagyl for 2 weeks. Local care with Aquacel Silver dressing. Close outpatient followup. MMMIRELILEL / NBAN: [id number] /
== END 2021-08-03 14:35 | DRG 255 ==
LOC: EC 16:54 → 4SSUR 20:00 → 3SCARD 07-29 17:43
PROVIDERS: ADMIT Family Medicine; ATTEND Family Medicine
PROC: 0Y6S0Z0 Detachment at Left 2nd Toe, Complete, Open Approach (ICD-10-PCS; principal; 2021-07-25 09:20)
PROC: 05HD33Z Insertion of Infusion Device into Right Cephalic Vein, Percutaneous Approach (ICD-10-PCS; 2021-07-29)
PROC: B41G1ZZ Fluoroscopy of Left Lower Extremity Arteries using Low Osmolar Contrast (ICD-10-PCS; 2021-07-30 08:00)
DX: E11.52 Type 2 diabetes mellitus with diabetic peripheral angiopathy with gangrene (principal); I21.4 Non-ST elevation (NSTEMI) myocardial infarction; I50.23 Acute on chronic systolic (congestive) heart failure; I70.262 Atherosclerosis of native arteries of extremities with gangrene, left leg; E44.1 Mild protein-calorie malnutrition; Z68.43 Body mass index [BMI] 50.0-59.9, adult; L03.116 Cellulitis of left lower limb; E11.649 Type 2 diabetes mellitus with hypoglycemia without coma; E11.42 Type 2 diabetes mellitus with diabetic polyneuropathy; I11.0 Hypertensive heart disease with heart failure; E11.621 Type 2 diabetes mellitus with foot ulcer; E11.628 Type 2 diabetes mellitus with other skin complications; L97.529 Non-pressure chronic ulcer of other part of left foot with unspecified severity; E66.01 Morbid (severe) obesity due to excess calories; E11.319 Type 2 diabetes mellitus with unspecified diabetic retinopathy without macular edema; F31.9 Bipolar disorder, unspecified; Z79.4 Long term (current) use of insulin; Z20.822 Contact with and (suspected) exposure to COVID-19; K76.0 Fatty (change of) liver, not elsewhere classified; M48.00 Spinal stenosis, site unspecified; B96.5 Pseudomonas (aeruginosa) (mallei) (pseudomallei) as the cause of diseases classified elsewhere; B95.61 Methicillin susceptible Staphylococcus aureus infection as the cause of diseases classified elsewhere; I25.10 Atherosclerotic heart disease of native coronary artery without angina pectoris; I25.5 Ischemic cardiomyopathy; G47.33 Obstructive sleep apnea (adult) (pediatric); I25.2 Old myocardial infarction; F41.9 Anxiety disorder, unspecified; K76.9 Liver disease, unspecified; E78.5 Hyperlipidemia, unspecified; E03.9 Hypothyroidism, unspecified; G89.29 Other chronic pain; M54.5 Low back pain; M81.0 Age-related osteoporosis without current pathological fracture; M19.90 Unspecified osteoarthritis, unspecified site; H54.3 Unqualified visual loss, both eyes; E87.5 Hyperkalemia; H91.90 Unspecified hearing loss, unspecified ear; H93.13 Tinnitus, bilateral; I69.328 Other speech and language deficits following cerebral infarction; K59.00 Constipation, unspecified; Z91.19 Patient's noncompliance with other medical treatment and regimen; Z79.82 Long term (current) use of aspirin; Z79.890 Hormone replacement therapy; Z79.02 Long term (current) use of antithrombotics/antiplatelets; Z79.899 Other long term (current) drug therapy; Z95.5 Presence of coronary angioplasty implant and graft; Z96.651 Presence of right artificial knee joint; Z87.820 Personal history of traumatic brain injury; Z90.710 Acquired absence of both cervix and uterus; Z87.42 Personal history of other diseases of the female genital tract; Z87.39 Personal history of other diseases of the musculoskeletal system and connective tissue; Z98.51 Tubal ligation status; Z87.2 Personal history of diseases of the skin and subcutaneous tissue; Z98.42 Cataract extraction status, left eye; Z98.41 Cataract extraction status, right eye; Z87.81 Personal history of (healed) traumatic fracture; Z87.440 Personal history of urinary (tract) infections; Z86.69 Personal history of other diseases of the nervous system and sense organs; Z98.890 Other specified postprocedural states; Z71.3 Dietary counseling and surveillance; Z91.041 Radiographic dye allergy status; Z91.040 Latex allergy status; Z88.8 Allergy status to other drugs, medicaments and biological substances; Z91.048 Other nonmedicinal substance allergy status; Z80.8 Family history of malignant neoplasm of other organs or systems; Z80.7 Family history of other malignant neoplasms of lymphoid, hematopoietic and related tissues; Z80.1 Family history of malignant neoplasm of trachea, bronchus and lung; Z82.49 Family history of ischemic heart disease and other diseases of the circulatory system; Z82.69 Family history of other diseases of the musculoskeletal system and connective tissue; Z83.1 Family history of other infectious and parasitic diseases
CPT/HCPCS: 36200; 36410; 36415; 71045; 75710; 76937; 80048; 80053; 83605; 84132; 84145; 85025; 85610; 85730; 87040; 87070; 87075; 87205; 87635; 94640; 99284

== ENCOUNTER → 2021-08-05 | Day surgery (SDC) | payer MEDICARE ==
[~2021-08-05] MED LIST changes: -DEXAMETHASONE SOD PHOSPHATE 10 MG/ML 1 ML VIAL IV ONE; -HEPARIN SODIUM,PORCINE 5,000 UNIT/ML 1 ML VIAL SQ ONE; -HYDROmorphone 0.5 MG/0.5 ML SYRINGE IVP PRN; +LIDOCAINE 1% INJ 10MG/ML (20 ML MDV) ONE; +LIDOCAINE 1% INJ 10MG/ML (20 ML MDV) SQ ONE; -MIDAZOLAM 2 MG/2 ML VIAL IV PRN; -ONDANSETRON 4 MG/2 ML VIAL IVP ONE
[2021-08-05 10:40] VITALS: BP 192/77; PULSE 70; RESP 18; TEMP 98.3
--- NOTE | 2021-08-05 13:15 | IR ---
PICC LINE PLACEMENT: HISTORY: Infection requiring long-term antibiotic therapy PROCEDURE: Ultrasound and fluoroscopic guidance of PICC line placement. COMPLICATIONS: None ANESTHESIA: 1. 1% Lidocaine locally. FINDINGS/TECHNIQUE: The procedure was explained to the patient. The risks, complications, benefits and alternatives were discussed and any questions were answered. Informed consent was obtained. The patient was placed supine on the fluoroscopic table and prepped and draped in the usual sterile fash ion. Utilizing a 21 gauge needle and sonographic and fluoroscopic guidance, access in the right bas ilic vein was achieved and there is placement of a 0.018 guidewire. The vein is patent. A 4-F sheat h was placed over the guidewire. The guidewire and dilator were removed and a 4-F. PICC line was patsy elle through the sheath with the tip at the level of the SVC. The sheath was removed, the catheter wa s flushed and sutured into position. The patient was stable throughout the procedure and remained st able upon discharge from the Department of Radiology. The vein puncture was patent under ultrasound. A viramontes scale image was obtained to document patency of the vein punctured. All elements of the maximal barrier technique were utilized. FLUOROSCOPY TIME: 0.1 minutes and one image submitted IMPRESSION: Successful PICC line placement under ultrasound and fluoroscopic guidance.
== END ==
LOC: CATHCVL 09:57
PROVIDERS: ATTEND Radiology Diagnostic Radiology
DX: Z45.2 Encounter for adjustment and management of vascular access device (principal); Z47.81 Encounter for orthopedic aftercare following surgical amputation; E11.319 Type 2 diabetes mellitus with unspecified diabetic retinopathy without macular edema
CPT/HCPCS: 36573; C1751; C1769; J2001

== ENCOUNTER 2021-08-15 16:48 | Inpatient (IN) | payer MEDICARE ==
--- NOTE | 2021-08-15 17:52 | ED ---
General Adult HPI <Haley Saleh - Last Filed: 08/15/21 17:50> - General Source: patient, family, RN notes reviewed, old records reviewed Mode of arrival: wheelchair - History of Present Illness -: week(s) (3) Location: left, lower extremity Severity scale (1-10): 0 Associated Symptoms: denies other symptoms Treatments Prior to Arrival: other (IV antibiotics at [facility]) <Jeff Ventura - Last Filed: 08/15/21 23:13> - General Chief complaint: Skin/Abscess/Foreign Body Stated complaint: Cellulitis , from wound center Time Seen by Provider: 08/15/21 17:50 - History of Present Illness Initial comments: Patient is a 71-year-old female with multiple morbidities presenting to the emergency Department with complaints of a worsening wounds on her left foot. She's had recent surgical amputation of one of her toes. She is having increased pain of her left foot as well. She is also started having some swelling of her left lower leg. She was sent in by the wound center. She has been on oral antibiotics for the last 3 weeks. She denies any fevers, no chest pain or short of breath. (Haley Saleh) This is a pleasant 71-year-old female that presents to the emergency room with her daughter complaining of worsening wounds to her left foot. She had an amputation of her second toe 3 weeks ago and has been at [facility] receiving IV antibiotics through PICC line. She states that today she had a visit from the wound care doctor Carlos was told to come to the emergency room for admission. She states that she's had increased bilateral lower extremity edema. She denies any chest pain or shortness of breath. She denies any pain. (Jeff Ventura) - Related Data Home Medications Medication Instructions Recorded Confirmed Levothyroxine Sodium [Synthroid] 50 mcg PO AC-BRKFST 08/21/17 08/05/21 Cetirizine HCl [Zyrtec] 10 mg PO DAILY PRN 05/06/20 08/04/21 Liothyronine Sodium [Cytomel] 5 mcg PO DAILY 05/06/20 08/05/21 Sertraline HCl [Zoloft] 50 mg PO DAILY 05/06/20 08/05/21 Calcium Carbonate [Calcium] 600 mg PO DAILY 07/15/20 08/05/21 Docusate [Colace] 100 mg PO BID PRN 07/15/20 08/04/21 Cholecalciferol (Vitamin D3) 125 mcg PO DAILY 02/18/21 08/05/21 [Vitamin D3 (5000 Iu)] Glimepiride [Amaryl] 4 mg PO AC-BRKFST 04/07/21 08/05/21 ARIPiprazole [Abilify] 5 mg PO DAILY 07/16/21 08/05/21 Diclofenac Sodium Gel [Voltaren 4 gm TOPICAL QID PRN 07/16/21 08/04/21 Gel] Nitroglycerin Sl Tabs [Nitrostat] 0.4 mg SL Q5M PRN 07/16/21 08/04/21 rOPINIRole HCL [Requip] 0.5 mg PO HS 07/16/21 08/05/21 Previous Rx's Medication Instructions Recorded Aspirin 81 mg PO DAILY #30 chew 08/01/20 Ticagrelor [Brilinta] 90 mg PO BID #60 tab 08/01/20 Atorvastatin [Lipitor] 80 mg PO HS #30 tab 07/20/21 Insulin Glargine [Lantus Vial] 65 unit SQ HS #0 07/20/21 Valsartan [Diovan] 160 mg PO BID #60 tab 07/20/21 carvediloL [Coreg*] 12.5 mg PO BID-W/MEALS #60 tab 07/20/21 Acetaminophen Tab [Tylenol] 650 mg PO Q6HR PRN tab 07/29/21 Cefepime [Maxipime] 2 gm IVPB Q12HR 14 Days #28 each 08/03/21 Furosemide [Lasix] 40 mg PO DAILY tab 08/03/21 Gabapentin [Neurontin] 300 mg PO TID #9 cap 08/03/21 INSULIN ASPART (NovoLOG) [NovoLOG 15 unit SQ AC-TID ml 08/03/21 (formulary)] INSULIN LISPRO (HumaLOG) [humaLOG] 0 unit SQ ACHS #10 ml 08/03/21 metroNIDAZOLE [Flagyl] 500 mg PO TID 14 Days #42 tab 08/03/21 Allergies Allergy/AdvReac Type Severity Reaction Status Date / Time Iodinated Contrast Media Allergy Swelling, Verified 08/15/21 23:09 [Iodinated Contrast Media - SHORTNESS IV Dye] OF BREATH latex Allergy Rash/Hives Verified 08/15/21 23:09 talc Allergy Rash/Hives Verified 08/15/21 23:09 adhesive tape AdvReac blisters Verified 08/15/21 23:09 amlodipine AdvReac ankle Verified 08/15/21 23:09 swelling hydralazine AdvReac Diarrhea Verified 08/15/21 23:09 metal Allergy Rash/Hives Uncoded 08/15/21 17:48 Review of Systems ROS Other: All systems not noted in ROS Statement are negative. <Haley Saleh - Last Filed: 08/15/21 17:50> ROS Other: All systems not noted in ROS Statement are negative. <Jeff Ventura - Last Filed: 08/15/21 23:13> ROS Statement: Those systems with pertinent positive or pertinent negative responses have been documented in the HPI. Past Medical History Past Medical History: Coronary Artery Disease (CAD), CVA/TIA, Diabetes Mellitus, Eye Disorder, Hearing Disorder / Deafness, Hypertension, Liver Disease, Myocardial Infarction ([place]), Osteoarthritis (OA), Sleep Apnea/CPAP/BIPAP, Syncope, Thyroid Disorder Additional Past Medical History / Comment(s): IDDM type II, neuropathy knees down bilaterally, ischemic cardiopmyopathy, 2009 small CVA with occasional word finding difficulty, R eye retinal bleed with some vision loss, bilateral diab etic retinopathy, fatty liver, chronic back pain, DDD< mild central canal stenosis, migraines, osteoporosis, UTI, bilateral tinnitis, BROCK no longer tolerates Cpap, benign thyroid nodules, CHI age 14, sycopal episodes as a child, sinus problems, wounds on feet Last Myocardial Infarction Date:: 07/2020 History of Any Multi-Drug Resistant Organisms: None Reported Past Surgical History: Breast Surgery, Heart Catheterization With Stent, Hysterectomy, Orthopedic Surgery, Tubal Ligation Additional Past Surgical History / Comment(s): PCI with stents in 06/2020 and 07/2020, several thyroid gland bxs, bilateral benign breast lumpectomies, D&c, bilateral feet 2 hammer toes each, R knee arthroscopy, low back injections, TTT, colonoscopies, bilateral cataract removals. Past Anesthesia/Blood Transfusion Reactions: No Reported Reaction, Motion Sickness Additional Past Anesthesia/Blood Transfusion Reaction / Comment(s): hypotension/memory problems Date of Last Stent Placement:: 2019 Smoking Status: Never smoker - Past Family History Father Family Medical History: Cancer Additional Family Medical History / Comment(s): Father had lymphoma. He had LUNG, BONE, THROAT AND MOUTH CANCER Brother(s) Family Medical History: Myocardial Infarction ([place]) Additional Family Medical History / Comment(s): Muscle Disease, Rheumatic fever at 2 years old Mother Family Medical History: Cancer Additional Family Medical History / Comment(s): lung cancer- mother. She at the age of 79yrs from esophageal valencia after radiation-unable to eat. Patient states "mother had aneurysm". <Haley Saleh - Last Filed: 08/15/21 17:50> General Exam Limitations: no limitations General appearance: alert, in no apparent distress Head exam: Present: atraumatic Eye exam: Present: normal appearance <Haley Saleh - Last Filed: 08/15/21 17:50> Limitations: no limitations General appearance: alert ENT exam: Present: normal exam, mucous membranes moist Neck exam: Present: normal inspection, full ROM. Absent: tenderness, meningismus, lymphadenopathy Respiratory exam: Present: normal lung sounds bilaterally. Absent: respiratory distress, wheezes, rales, rhonchi, stridor, accessory muscle use Cardiovascular Exam: Present: regular rate, normal rhythm, normal heart sounds. Absent: systolic murmur, diastolic murmur, rubs, gallop, clicks GI/Abdominal exam: Present: soft, normal bowel sounds. Absent: distended, tenderness, guarding, rebound, rigid Extremities exam: Present: tenderness (Bilateral lower extremity swelling and tenderness), normal capillary refill, pedal edema Neurological exam: Present: alert, oriented X3 Psychiatric exam: Present: normal affect, normal mood Skin exam: Present: warm, dry, intact, normal color. Absent: rash, cyanosis, diaphoretic, petechiae, pallor <Jeff Ventura - Last Filed: 08/15/21 23:13> Course Vital Signs 08/15/21 17:49 Temperature 97.8 F Pulse Rate 71 Respiratory 18 Rate Blood Pressure 139/58 O2 Sat by Pulse 96 Oximetry EKG Findings - EKG Results: EKG: sinus rhythm (Ventricular rate of 87, IL interval 0.178, QRS 0.82, QTC 0.433) <Jeff Ventura - Last Filed: 08/15/21 23:13> Medical Decision Making - Lab Data Result diagrams: 08/15/21 18:38 08/15/21 18:38 <Jeff Ventura - Last Filed: 08/15/21 23:13> - Medical Decision Making X-ray of the left foot shows absence of the second toe phalanges from surgical amputation. There is a small osseous fragment with indistinct margins concerning for possible postsurgical change versus infection. There is questionable soft tissue gas about the second toe. There is no evidence of leukocytosis. Patient is currently on cefepime IV, 2 g every 12 hours for osteomyelitis. Patient is also complaining of bilateral lower extremity swelling, her BNP is 4370, she was given Lasix. she'll be admitted to the hospital for CHF and possible osteomyelitis of the left foot. This case was discussed with Dr. Kiran. (Jeff Ventura) - Lab Data Lab Results 08/15/21 08/15/21 08/15/21 Range/Units 18:38 18:38 18:38 WBC 9.7 (3.8-10.6) k/uL RBC 3.19 L (3.80-5.40) m/uL Hgb 8.6 L D (11.4-16.0) gm/dL Hct 26.8 L (34.0-46.0) % MCV 84.0 (80.0-100.0) fL MCH 27.0 (25.0-35.0) pg MCHC 32.1 (31.0-37.0) g/dL RDW 15.5 (11.5-15.5) % Plt Count 493 H (150-450) k/uL MPV 7.1 Neutrophils % 75 % Lymphocytes % 12 % Monocytes % 5 % Eosinophils % 6 % Basophils % 1 % Neutrophils # 7.3 (1.3-7.7) k/uL Lymphocytes # 1.2 (1.0-4.8) k/uL Monocytes # 0.5 (0-1.0) k/uL Eosinophils # 0.6 (0-0.7) k/uL Basophils # 0.0 (0-0.2) k/uL Hypochromasia Slight Poikilocytosis Slight PT (9.0-12.0) sec INR (<1.2) APTT (22.0-30.0) sec Sodium 138 (137-145) mmol/L Potassium 4.8 (3.5-5.1) mmol/L Chloride 109 H (98-107) mmol/L Carbon Dioxide 22 (22-30) mmol/L Anion Gap 7 mmol/L BUN 50 H (7-17) mg/dL Creatinine 1.16 H (0.52-1.04) mg/dL Est GFR (CKD-EPI)AfAm 54 (>60 ml/min/1.73 sqM) Est GFR (CKD-EPI)NonAf 47 (>60 ml/min/1.73 sqM) Glucose 109 H (74-99) mg/dL Plasma Lactic Acid Carlos 1.0 (0.7-2.0) mmol/L Calcium 10.2 (8.4-10.2) mg/dL Total Bilirubin 0.5 (0.2-1.3) mg/dL AST 21 (14-36) U/L ALT 17 (4-34) U/L Alkaline Phosphatase 104 (38-126) U/L C-Reactive Protein 1.3 H (<1.0) mg/dL NT-Pro-B Natriuret Pep pg/mL Total Protein 6.3 (6.3-8.2) g/dL Albumin 3.1 L (3.5-5.0) g/dL 08/15/21 08/15/21 Range/Units 18:38 20:59 WBC (3.8-10.6) k/uL RBC (3.80-5.40) m/uL Hgb (11.4-16.0) gm/dL Hct (34.0-46.0) % MCV (80.0-100.0) fL MCH (25.0-35.0) pg MCHC (31.0-37.0) g/dL RDW (11.5-15.5) % Plt Count (150-450) k/uL MPV Neutrophils % % Lymphocytes % % Monocytes % % Eosinophils % % Basophils % % Neutrophils # (1.3-7.7) k/uL Lymphocytes # (1.0-4.8) k/uL Monocytes # (0-1.0) k/uL Eosinophils # (0-0.7) k/uL Basophils # (0-0.2) k/uL Hypochromasia Poikilocytosis PT 10.5 (9.0-12.0) sec INR 1.0 (<1.2) APTT 20.9 L (22.0-30.0) sec Sodium (137-145) mmol/L Potassium (3.5-5.1) mmol/L Chloride (98-107) mmol/L Carbon Dioxide (22-30) mmol/L Anion Gap mmol/L BUN (7-17) mg/dL Creatinine (0.52-1.04) mg/dL Est GFR (CKD-EPI)AfAm (>60 ml/min/1.73 sqM) Est GFR (CKD-EPI)NonAf (>60 ml/min/1.73 sqM) Glucose (74-99) mg/dL Plasma Lactic Acid Carlos (0.7-2.0) mmol/L Calcium (8.4-10.2) mg/dL Total Bilirubin (0.2-1.3) mg/dL AST (14-36) U/L ALT (4-34) U/L Alkaline Phosphatase (38-126) U/L C-Reactive Protein (<1.0) mg/dL NT-Pro-B Natriuret Pep 4370 pg/mL Total Protein (6.3-8.2) g/dL Albumin (3.5-5.0) g/dL Disposition <Haley Saleh - Last Filed: 08/15/21 17:50> Decision Date: 08/15/21 Decision Time: 21:57 <Jeff Ventura - Last Filed: 08/15/21 23:13> Clinical Impression: CHF (congestive heart failure), Diabetic foot ulcer Disposition: ADMITTED IP TO THIS HOSP
--- NOTE | 2021-08-15 18:35 | XR ---
Result: History: Worsening left foot pain. Left second toe infection. Comparison: 07/15/2021. Technique: 3 views of the left foot. Findings: There is interval absence of the second toe phalanges. There is small 4 mm osseous remnant with indis tinct margins. There is questionable soft tissue gas about the second toe, however evaluation is limi matti due to overpenetration. Otherwise no acute fracture or dislocation. There is chronic, malunion fi fth metatarsal fracture, stable. Impression: Interval absence of second toe phalanges, correlate with surgical history for amputation. Small osseo us fragment with indistinct margins, concerning for possible post surgical change versus infection. Questionable soft tissue gas about the second toe.
[2021-08-15 18:47] LABS: Basophils % (A) 1 %; Eosinophils # (A) 0.6 k/uL (0-0.7); Eosinophils % (A) 6 %; HCT 26.8 % (34.0-46.0); Hypochromasia Slight; Lymphocytes # (A) 1.2 k/uL (1.0-4.8); Lymphocytes % (A) 12 %; MCHC 32.1 g/dL (31.0-37.0); Mean Platelet Volume 7.1; Monocytes # (A) 0.5 k/uL (0-1.0); Monocytes % (A) 5 %; Neutrophils # (A) 7.3 k/uL (1.3-7.7); Neutrophils % (A) 75 %; Platelet Count 493 k/uL (150-450); Poikilocytosis Slight; RBC 3.19 m/uL (3.80-5.40); RDW 15.5 % (11.5-15.5); WBC 9.7 k/uL (3.8-10.6)
[2021-08-15 18:48] LABS: HGB 8.6 gm/dL (11.4-16.0)
[2021-08-15 18:54] LABS: Potassium 4.8 mmol/L (3.5-5.1)
[2021-08-15 18:57] LABS: Albumin 3.1 g/dL (3.5-5.0); C Reactive Protein 1.3 mg/dL (<1.0); Calcium 10.2 mg/dL (8.4-10.2); Total Bilirubin 0.5 mg/dL (0.2-1.3); Total Protein 6.3 g/dL (6.3-8.2)
[2021-08-15 19:02] LABS: Partial Thromboplastin Time 20.9 sec (22.0-30.0); Prothrombin Time 10.5 sec (9.0-12.0)
[2021-08-15] MEDS ORDERED: FUROSEMIDE 10 MG/ML 10 ML VIAL IV STA (21:30)
--- NOTE | 2021-08-15 21:44 | XR ---
EXAMINATION TYPE: XR chest 2V DATE OF EXAM: 08/15/2021 COMPARISON: 07/27/2021. HISTORY: Cough TECHNIQUE: Frontal and lateral views of the chest are obtained. FINDINGS: There is moderate interstitial edema superimposed diffuse hazy and streaky opacities. No p leural effusion, or pneumothorax seen. The cardiac silhouette size is enlarged. The osseous struct ures are intact. There is demonstration of right PICC with tip overlying the cranial SVC. IMPRESSION: CHF with superimposed infiltrates not excluded.
[2021-08-15] MEDS ORDERED: NALOXONE 0.4 MG/ML 1 ML VIAL IV PRN (21:57)
[2021-08-15] MEDS ORDERED: ALBUTEROL NEBULIZED 2.5 MG/3 ML INHALATION STA (23:50)
[2021-08-16 00:51] LABS: Glucose,Whole Blood 238 mg/dL (75-99)
[2021-08-16] MEDS: ACETAMINOPHEN TAB 325 MG TAB PO PRN ×2 (06:51→18:17)
[2021-08-16 07:14] LABS: Glucose,Whole Blood 170 mg/dL (75-99)
[2021-08-16] MEDS: FUROSEMIDE 10 MG/ML 4 ML VIAL IV SCH ×2 (08:21→22:04)
[2021-08-16] MEDS ORDERED: LORATADINE 10 MG TAB PO PRN (08:50)
[2021-08-16] MEDS ORDERED: bisacodyL 10 MG SUPP RECTAL PRN (08:50)
[2021-08-16] MEDS ORDERED: MAGNESIUM HYDROXIDE 2,400 MG/10 ML CUP PO PRN (08:50)
[2021-08-16] MEDS ORDERED: CEFEPIME 2 GM in SODIUM CHLORIDE 0.9% 100 ML IVPB ONE (09:15)
--- NOTE | 2021-08-16 10:51 | P.GSCN ---
History of Present Illness Consult date: 08/16/21 Reason for Consult: left foot wound with peripheral arterial occlusive disease Requesting physician: Tez Ansari History of present illness: 71-year-old female with history of left foot gangrene with previous 2nd toe amputation per Dr. Ansari presented back to the emergency Department with complaints of a worsening wounds and pain to the left foot. She was recently seen by Dr. Ansari and underwent angiogram of the left lower extremity due to diminished BALTAZAR's and was found to have significant occlusive disease involving the left SFA and tibial arteries with one vessel runoff to the foot. She denies any intervention in the past. She states she is bed bound and has not ambulated in 3 years. She has been at [facility] receiving IV antibiotics through PICC line for the last 3 weeks with minimal improvement. She denies any fevers, chills, chest pain or shortness of breath. Review of Systems All systems: negative (what is mentioned in the PMH or HPI) Past Medical History Past Medical History: Coronary Artery Disease (CAD), CVA/TIA, Diabetes Mellitus, Eye Disorder, Hearing Disorder / Deafness, Hypertension, Liver Disease, Myocardial Infarction ([place]), Osteoarthritis (OA), Sleep Apnea/CPAP/BIPAP, Syncope, Thyroid Disorder Additional Past Medical History / Comment(s): IDDM type II, neuropathy knees down bilaterally, ischemic cardiopmyopathy, 2009 small CVA with occasional word finding difficulty, R eye retinal bleed with some vision loss, bilateral diabetic retinopathy, fatty liver, chronic back pain, DDD< mild central canal stenosis, migraines, osteoporosis, UTI, bilateral tinnitis, BROCK no longer tolerates Cpap, benign thyroid nodules, CHI age 14, sycopal episodes as a child, sinus problems, wounds on feet Last Myocardial Infarction Date:: 07/2020 History of Any Multi-Drug Resistant Organisms: None Reported Past Surgical History: Breast Surgery, Heart Catheterization With Stent, Hysterectomy, Orthopedic Surgery, Tubal Ligation Additional Past Surgical History / Comment(s): PCI with stents in 06/2020 and 07/2020, several thyroid gland bxs, bilateral benign breast lumpectomies, D&c, bilateral feet 2 hammer toes each, R knee arthroscopy, low back injections, TTT, colonoscopies, bilateral cataract removals. Past Anesthesia/Blood Transfusion Reactions: No Reported Reaction, Motion Sickness Additional Past Anesthesia/Blood Transfusion Reaction / Comm: hypotension/memory problems Date of Last Stent Placement:: 2019 Smoking Status: Never smoker - Past Family History Father Family Medical History: Cancer Additional Family Medical History / Comment(s): Father had lymphoma. He had LUNG, BONE, THROAT AND MOUTH CANCER Brother(s) Family Medical History: Myocardial Infarction ([place]) Additional Family Medical History / Comment(s): Muscle Disease, Rheumatic fever at 2 years old Mother Family Medical History: Cancer Additional Family Medical History / Comment(s): lung cancer- mother. She at the age of 79yrs from esophageal valencia after radiation-unable to eat. Patient states "mother had aneurysm". Medications and Allergies Home Medications Medication Instructions Recorded Confirmed Type Levothyroxine Sodium [Synthroid] 50 mcg PO DAILY@79908/21/17 08/15/21 History Cetirizine HCl [Zyrtec] 10 mg PO DAILY PRN 05/06/20 08/15/21 History Liothyronine Sodium [Cytomel] 5 mcg PO DAILY@79905/06/20 08/15/21 History Sertraline HCl [Zoloft] 50 mg PO DAILY@0805/06/20 08/15/21 History Calcium Carbonate [Calcium] 600 mg PO DAILY@1700 07/15/20 08/15/21 History Docusate [Colace] 100 mg PO BID PRN 07/15/20 08/15/21 History Cholecalciferol (Vitamin D3) 125 mcg PO DAILY@1700 02/18/21 08/15/21 History [Vitamin D3 (5000 Iu)] Glimepiride [Amaryl] 4 mg PO DAILY@79904/07/21 08/15/21 History ARIPiprazole [Abilify] 5 mg PO DAILY@0807/16/21 08/15/21 History Diclofenac Sodium Gel [Voltaren 4 gm TOPICAL QID PRN 07/16/21 08/15/21 History Gel] Nitroglycerin Sl Tabs [Nitrostat] 0.4 mg SL Q5M PRN 07/16/21 08/15/21 History rOPINIRole HCL [Requip] 0.5 mg PO HS@2100 07/16/21 08/15/21 History Acetaminophen Tab [Tylenol] 650 mg PO Q6HR PRN tab 07/29/21 08/15/21 Rx Albuterol Nebulized [Ventolin 2.5 mg INHALATION RT-Q4H PRN 08/15/21 08/15/21 History Nebulized] Aspirin 81 mg PO DAILY@17008/15/21 08/15/21 History Atorvastatin [Lipitor] 80 mg PO HS@2100 08/15/21 08/15/21 History Cefepime [Maxipime] 2 gm IVPB BID@0800,209908/15/21 08/15/21 History Ferrous Sulfate [Feosol] 325 mg PO TID@0800,1200,1700 08/15/21 08/15/21 History Furosemide [Lasix] 40 mg PO DAILY@0808/15/21 08/15/21 History Gabapentin [Neurontin] 300 mg PO TID@0800,1400,2200 08/15/21 08/15/21 History INSULIN ASPART (NovoLOG) [NovoLOG 15 unit SQ TID@0700,1100,1830 PRN 08/15/21 08/15/21 History (formulary)] INSULIN ASPART (NovoLOG) [NovoLOG See Protocol SQ ACHS 08/15/21 08/15/21 History (formulary)] Insulin Glargine [Lantus Vial] 65 unit SQ HS@212908/15/21 08/15/21 History Liquacel 30 ml PO BID@0800,1700 08/15/21 08/15/21 History Loperamide HCl [Imodium A-D] 2 - 4 mg PO TID PRN 08/15/21 08/15/21 History Magnesium Hydroxide [Milk of 2,400 mg PO DAILY PRN 08/15/21 08/15/21 History Magnesia] Na Phos,M-B/Na Phos,Di-Ba [Fleet 133 ml RECTAL DAILY PRN 08/15/21 08/15/21 History Adult] Saccharomyces Boulardii 250 mg PO DAILY@0800 08/15/21 08/15/21 History [Saccharomycin Df] Ticagrelor [Brilinta] 90 mg PO BID@0800,1700 08/15/21 08/15/21 History Valsartan [Diovan] 160 mg PO BID@0800,1700 08/15/21 08/15/21 History bisacodyL [Dulcolax] 10 mg RECTAL DAILY PRN 08/15/21 08/15/21 History carvediloL [Coreg*] 12.5 mg PO BID@0800,1700 08/15/21 08/15/21 History Allergies Allergy/AdvReac Type Severity Reaction Status Date / Time Iodinated Contrast Media Allergy Swelling, Verified 08/15/21 23:09 [Iodinated Contrast Media - SHORTNESS IV Dye] OF BREATH latex Allergy Rash/Hives Verified 08/15/21 23:09 talc Allergy Rash/Hives Verified 08/15/21 23:09 adhesive tape AdvReac blisters Verified 08/15/21 23:09 amlodipine AdvReac ankle Verified 08/15/21 23:09 swelling hydralazine AdvReac Diarrhea Verified 08/15/21 23:09 metal Allergy Rash/Hives Uncoded 08/15/21 17:48 Surgical - Exam Vital Signs Temp Pulse Resp BP Pulse Ox 97.8 F 71 18 139/58 96 08/15/21 17:49 08/15/21 17:49 08/15/21 17:49 08/15/21 17:49 08/15/21 17:49 - General well developed, well nourished, no distress, obese - Eyes PERRL, normal ocular movement - ENT normal pinna, normal nares - Respiratory normal expansion, normal respiratory effort - Cardiovascular Rhythm: regular - Abdomen Abdomen: soft, non tender - Integumentary no rash, no growths - Neurologic no normal sensation - Psychiatric oriented to time, oriented to person, oriented to place, speech is normal Results - Labs 08/15/21 18:38 08/15/21 18:38 Abnormal Lab Results - Last 24 Hours (Table) 08/15/21 08/15/21 08/15/21 Range/Units 18:38 18:38 18:38 RBC 3.19 L (3.80-5.40) m/uL Hgb 8.6 L D (11.4-16.0) gm/dL Hct 26.8 L (34.0-46.0) % Plt Count 493 H (150-450) k/uL APTT 20.9 L (22.0-30.0) sec Chloride 109 H (98-107) mmol/L BUN 50 H (7-17) mg/dL Creatinine 1.16 H (0.52-1.04) mg/dL Glucose 109 H (74-99) mg/dL POC Glucose (mg/dL) (75-99) mg/dL C-Reactive Protein 1.3 H (<1.0) mg/dL Albumin 3.1 L (3.5-5.0) g/dL 08/16/21 08/16/21 Range/Units 00:48 07:13 RBC (3.80-5.40) m/uL Hgb (11.4-16.0) gm/dL Hct (34.0-46.0) % Plt Count (150-450) k/uL APTT (22.0-30.0) sec Chloride (98-107) mmol/L BUN (7-17) mg/dL Creatinine (0.52-1.04) mg/dL Glucose (74-99) mg/dL POC Glucose (mg/dL) 238 H 170 H (75-99) mg/dL C-Reactive Protein (<1.0) mg/dL Albumin (3.5-5.0) g/dL Microbiology - Last 24 Hours (Table) 08/15/21 20:59 Wound Culture - Preliminary Foot - Left Diabetes panel 08/15/21 Range/Units 18:38 Sodium 138 (137-145) mmol/L Potassium 4.8 (3.5-5.1) mmol/L Chloride 109 H (98-107) mmol/L Carbon Dioxide 22 (22-30) mmol/L BUN 50 H (7-17) mg/dL Creatinine 1.16 H (0.52-1.04) mg/dL Glucose 109 H (74-99) mg/dL Calcium 10.2 (8.4-10.2) mg/dL AST 21 (14-36) U/L ALT 17 (4-34) U/L Alkaline Phosphatase 104 (38-126) U/L Total Protein 6.3 (6.3-8.2) g/dL Albumin 3.1 L (3.5-5.0) g/dL Calcium panel 08/15/21 Range/Units 18:38 Calcium 10.2 (8.4-10.2) mg/dL Albumin 3.1 L (3.5-5.0) g/dL Pituitary panel 08/15/21 Range/Units 18:38 Sodium 138 (137-145) mmol/L Potassium 4.8 (3.5-5.1) mmol/L Chloride 109 H (98-107) mmol/L Carbon Dioxide 22 (22-30) mmol/L BUN 50 H (7-17) mg/dL Creatinine 1.16 H (0.52-1.04) mg/dL Glucose 109 H (74-99) mg/dL Calcium 10.2 (8.4-10.2) mg/dL Adrenal panel 08/15/21 Range/Units 18:38 Sodium 138 (137-145) mmol/L Potassium 4.8 (3.5-5.1) mmol/L Chloride 109 H (98-107) mmol/L Carbon Dioxide 22 (22-30) mmol/L BUN 50 H (7-17) mg/dL Creatinine 1.16 H (0.52-1.04) mg/dL Glucose 109 H (74-99) mg/dL Calcium 10.2 (8.4-10.2) mg/dL Total Bilirubin 0.5 (0.2-1.3) mg/dL AST 21 (14-36) U/L ALT 17 (4-34) U/L Alkaline Phosphatase 104 (38-126) U/L Total Protein 6.3 (6.3-8.2) g/dL Albumin 3.1 L (3.5-5.0) g/dL Assessment and Plan Assessment: 1. Critical limb ischemia of left foot Gerry 5 2. Chronic left foot wound 3. Diabetic neuropathy 4. Plan: reviewed angiogram of the left lower extremity. Will need left lower extremity revascularization of the SFA and anterior tibial artery. Wound will not heal without intervention. Will schedule procedure this week.
[2021-08-16] MEDS ORDERED: INSULIN ASPART (NovoLOG) 100 UNIT/ML VIAL SQ PRN (11:00)
[2021-08-16 11:35] LABS: Glucose,Whole Blood 206 mg/dL (75-99)
[2021-08-16] MEDS: FERROUS SULFATE 325 MG TAB PO SCH ×2 (12:30→18:04)
[2021-08-16] MEDS: INSULIN ASPART (NovoLOG) 100 UNIT/ML VIAL SQ SCH ×3 (12:33→22:04)
[2021-08-16] MEDS: ISOSORBIDE MONONITRATE ER 30 MG TAB.ER.24H PO SCH (13:53)
--- NOTE | 2021-08-16 14:15 | P.CRDCN ---
History of Present Illness History of present illness: HISTORY OF PRESENTING ILLNESS The patient is a 71-year-old female with past medical history of coronary artery disease status post stenting in June and July 2020 and most recently in A ugust 2020, obesity, type 2 diabetes, hypertension, ischemic cardiomyopathy EF 40-45%, hyperlipidemia, peripheral vascular disease, obstructive sleep apnea, who follows in the office with Dr. Acevedo. We have been asked to see in consultation for congestive heart failure. Patient is seen and examined in the emergency department. Patient presents to the emergency department with worsening left foot ulcer infection. She states she had a visit from a wound care doctor and was told to go to the emergency department for further evaluation. She states she has been having some shortness of breath, states it is similar to what she has been having for the past 3 weeks. She does have some dyspnea with activity. She denies any chest pain, lightheadedness, dizziness, palpitations. She denies any worsening lower extremity edema. She is a non- smoker. Denies alcohol use. Patient was recently admitted in June 2021 with an NSTEMI and underwent cardiac catheterization which revealed instent restenosis lesion with in the proximal LAD stent, 55% stenosis in the distal RCA, 55% stenosis in the midci rcumflex. She underwent successful stent placement to the proximal LAD with Dr. Lynn. echocardiogram revealed EF 40-45%, mild mitral regurgitation, mild tricuspid regurgitation. After being discharged on 07/20/21, she presented to the ER on 07/24/21 with complaints of left second toe infection Patient underwent left second toe amputation on 07/25/2021. Recent cultures growing Pseudomonas and staph aureus. She also underwent left lower extremity angiogram on 07/30/2021 which revealed Mid SFA short segment total occlusion, perineal and posterior tibial occluded, anterior tibial has 2 segment high-grade stenosis. She was discharged to [facility] receiving IV antibiotics through PICC line. DIAGNOSTICS Chest xray moderate interstital edema, cardiac silhouette is enlarged. Laboratory reviewed, WBC 9.7, hemoglobin 8.6, platelets 493, sodium 138, potassium 4.8, BUN 50, serum creatinine, proBNP 4370 previously 1930, C-reactive protein 1.3 Current home cardiac medications include aspirin 81 mg daily, Lasix 40 mg daily, atorvastatin 80 mg nightly, Brilinta 90 mg twice a day, carvedilol 12.5 mg twice a day, valsartan 160 mg twice a day REVIEW OF SYSTEMS At the time of my exam: CONSTITUTIONAL: Denies fever or chills. CARDIOVASCULAR: +shortness of breath Denies chest pain, orthopnea, PND or pa lpitations. RESPIRATORY: Denies cough. GASTROINTESTINAL: Denies abdominal pain, diarrhea, constipation, nausea or vomiting. MUSCULOSKELETAL: Denies myalgias. NEUROLOGIC: Denies numbness, tingling, headacbe or weakness. ENDOCRINE: Denies fatigue, weight change, polydipsia or polyurina. GENITOURINARY: Denies burning, hematuria or urgency with micturation. HEMATOLOGIC: +anemia, Denies bleeding. PHYSICAL EXAMINATION blood pressure 164/61, heart rate 80, afebrile, maintaining oxygen saturation 72 L nasal cannula. CONSTITUTIONAL: No apparent distress. HEENT: Head is normocephalic. Pupils are equal, round. Sclerae anicteric. Mucous membranes of the mouth are moist. CHEST EXAMINATION: Lungs are clear to auscultation. No chest wall tenderness is noted on palpation or with deep breathing. HEART EXAMINATION: Regular rate and rhythm. S1, S2 heard. No murmurs, gallops or rub. ABDOMEN: Soft, nontender. Positive bowel sounds. EXTREMITIES: 2+ peripheral pulses, moderate non-pitting lower extremity edema and no calf tenderness. Left foot second toe wound with open wound green drainage. Left foot with peeling skin and redness and bruising. Swelling in the left foot present. NEUROLOGIC EXAMINATION: Patient is awake, alert and oriented x3. ASSESSMENT Left second toe diabetic foot infection status post amputation on 07/25/2021 Coronary artery disease s/p PCI Recent NSTEMI status post stenting of LAD on 07/16/2021 Ischemic cardiomyopathy EF 40-45% - appears euvolemic on exam Acute on chronic systolic heart failure Type 2 diabetes Hypertension Obstructive sleep apnea Diabetic neuropathy Acute on chronic kidney disease PLAN -Continue IV Diuresis Lasix 40mg BID -Start Imdur 30mg daily -Continue dual antiplatelet therapy with aspirin and Brilinta -Continue statin -Continue Valsartan -Monitor renal function and electrolytes -Further recommendations based on clinical course Nurse Practitioner note has been reviewed, I agree with a documented findings and plan of care. Patient was seen and examined. Past Medical History Past Medical History: Coronary Artery Disease (CAD), CVA/TIA, Diabetes Mellitus, Eye Disorder, Hearing Disorder / Deafness, Hypertension, Liver Disease, Myocardial Infarction ([place]), Osteoarthritis (OA), Sleep Apnea/CPAP/BIPAP, Syncope, Thyroid Disorder Additional Past Medical History / Comment(s): IDDM type II, neuropathy knees down bilaterally, ischemic cardiopmyopathy, 2009 small CVA with occasional word finding difficulty, R eye retinal bleed with some vision loss, bilateral diab etic retinopathy, fatty liver, chronic back pain, DDD< mild central canal stenosis, migraines, osteoporosis, UTI, bilateral tinnitis, BROCK no longer tolerates Cpap, benign thyroid nodules, CHI age 14, sycopal episodes as a child, sinus problems, wounds on feet Last Myocardial Infarction Date:: 07/2020 History of Any Multi-Drug Resistant Organisms: None Reported Past Surgical History: Breast Surgery, Heart Catheterization With Stent, Hysterectomy, Orthopedic Surgery, Tubal Ligation Additional Past Surgical History / Comment(s): PCI with stents in 06/2020 and 07/2020, several thyroid gland bxs, bilateral benign breast lumpectomies, D&c, bilateral feet 2 hammer toes each, R knee arthroscopy, low back injections, TTT, colonoscopies, bilateral cataract removals. Past Anesthesia/Blood Transfusion Reactions: No Reported Reaction, Motion Sickness Additional Past Anesthesia/Blood Transfusion Reaction / Comment(s): hypotension/memory problems Date of Last Stent Placement:: 2019 Smoking Status: Never smoker - Past Family History Father Family Medical History: Cancer Additional Family Medical History / Comment(s): Father had lymphoma. He had LUNG, BONE, THROAT AND MOUTH CANCER Brother(s) Family Medical History: Myocardial Infarction ([place]) Additional Family Medical History / Comment(s): Muscle Disease, Rheumatic fever at 2 years old Mother Family Medical History: Cancer Additional Family Medical History / Comment(s): lung cancer- mother. She at the age of 79yrs from esophageal valencia after radiation-unable to eat. Patient states "mother had aneurysm". Medications and Allergies Home Medications Medication Instructions Recorded Confirmed Type Levothyroxine Sodium [Synthroid] 50 mcg PO DAILY@0800 08/21/17 08/15/21 History Cetirizine HCl [Zyrtec] 10 mg PO DAILY PRN 05/06/20 08/15/21 History Liothyronine Sodium [Cytomel] 5 mcg PO DAILY@0800 05/06/20 09/20/21 History Sertraline HCl [Zoloft] 50 mg PO DAILY@79905/06/20 08/15/21 History Calcium Carbonate [Calcium] 600 mg PO DAILY@169907/15/20 08/15/21 History Docusate [Colace] 100 mg PO BID PRN 07/15/20 08/15/21 History Cholecalciferol (Vitamin D3) 125 mcg PO DAILY@169902/18/21 08/15/21 History [Vitamin D3 (5000 Iu)] Glimepiride [Amaryl] 4 mg PO DAILY@79904/07/21 08/15/21 History ARIPiprazole [Abilify] 5 mg PO DAILY@79907/16/21 08/15/21 History Diclofenac Sodium Gel [Voltaren 4 gm TOPICAL QID PRN 07/16/21 08/15/21 History Gel] Nitroglycerin Sl Tabs [Nitrostat] 0.4 mg SL Q5M PRN 07/16/21 08/15/21 History rOPINIRole HCL [Requip] 0.5 mg PO HS@209907/16/21 08/15/21 History Acetaminophen Tab [Tylenol] 650 mg PO Q6HR PRN tab 07/29/21 08/15/21 Rx Albuterol Nebulized [Ventolin 2.5 mg INHALATION RT-Q4H PRN 08/15/21 08/15/21 History Nebulized] Aspirin 81 mg PO DAILY@169908/15/21 08/15/21 History Atorvastatin [Lipitor] 80 mg PO HS@209908/15/21 08/15/21 History Cefepime [Maxipime] 2 gm IVPB BID@799,209908/15/21 08/15/21 History Ferrous Sulfate [Feosol] 325 mg PO TID@0800,1200,1700 08/15/21 08/15/21 History Furosemide [Lasix] 40 mg PO DAILY@79908/15/21 08/15/21 History Gabapentin [Neurontin] 300 mg PO TID@0800,1400,2200 08/15/21 08/15/21 History INSULIN ASPART (NovoLOG) [NovoLOG 15 unit SQ TID@0700,1100,1830 PRN 08/15/21 08/15/21 History (formulary)] INSULIN ASPART (NovoLOG) [NovoLOG See Protocol SQ ACHS 08/15/21 08/15/21 History (formulary)] Insulin Glargine [Lantus Vial] 65 unit SQ HS@2130 08/15/21 08/15/21 History Liquacel 30 ml PO BID@0800,1700 08/15/21 08/15/21 History Loperamide HCl [Imodium A-D] 2 - 4 mg PO TID PRN 08/15/21 08/15/21 History Magnesium Hydroxide [Milk of 2,400 mg PO DAILY PRN 08/15/21 08/15/21 History Magnesia] Na Phos,M-B/Na Phos,Di-Ba [Fleet 133 ml RECTAL DAILY PRN 08/15/21 08/15/21 History Adult] Saccharomyces Boulardii 250 mg PO DAILY@0800 08/15/21 08/15/21 History [Saccharomycin Df] Ticagrelor [Brilinta] 90 mg PO BID@0800,1700 08/15/21 08/15/21 History Valsartan [Diovan] 160 mg PO BID@0800,1700 08/15/21 08/15/21 History bisacodyL [Dulcolax] 10 mg RECTAL DAILY PRN 08/15/21 08/15/21 History carvediloL [Coreg*] 12.5 mg PO BID@0800,1700 08/15/21 08/15/21 History Allergies Allergy/AdvReac Type Severity Reaction Status Date / Time Iodinated Contrast Media Allergy Swelling, Verified 08/15/21 23:09 [Iodinated Contrast Media - SHORTNESS IV Dye] OF BREATH latex Allergy Rash/Hives Verified 08/15/21 23:09 talc Allergy Rash/Hives Verified 08/15/21 23:09 adhesive tape AdvReac blisters Verified 08/15/21 23:09 amlodipine AdvReac ankle Verified 08/15/21 23:09 swelling hydralazine AdvReac Diarrhea Verified 08/15/21 23:09 metal Allergy Rash/Hives Uncoded 08/15/21 17:48 Physical Exam Vitals: Vital Signs Temp Pulse Pulse Resp BP BP Pulse Ox 08/16/21 07:23 97.9 F 72 16 157/60 99 08/16/21 06:43 78 21 162/63 99 08/16/21 03:46 82 22 169/84 97 08/16/21 00:44 88 08/16/21 00:35 89 08/15/21 23:13 91 20 167/89 95 08/15/21 17:49 97.8 F 71 18 139/58 96 Intake and Output 08/15/21 08/16/21 08/16/21 22:59 06:59 14:59 Intake Total 472 Balance 472 Intake: Oral 472 Other: Voiding Method External Catheter Weight 146.51 kg Results 08/15/21 18:38 08/15/21 18:38 Cardiac Enzymes 08/15/21 Range/Units 18:38 AST 21 (14-36) U/L Coagulation 08/15/21 Range/Units 18:38 PT 10.5 (9.0-12.0) sec APTT 20.9 L (22.0-30.0) sec CBC 08/15/21 Range/Units 18:38 WBC 9.7 (3.8-10.6) k/uL RBC 3.19 L (3.80-5.40) m/uL Hgb 8.6 L D (11.4-16.0) gm/dL Hct 26.8 L (34.0-46.0) % Plt Count 493 H (150-450) k/uL Comprehensive Metabolic Panel 08/15/21 Range/Units 18:38 Sodium 138 (137-145) mmol/L Potassium 4.8 (3.5-5.1) mmol/L Chloride 109 H (98-107) mmol/L Carbon Dioxide 22 (22-30) mmol/L BUN 50 H (7-17) mg/dL Creatinine 1.16 H (0.52-1.04) mg/dL Glucose 109 H (74-99) mg/dL Calcium 10.2 (8.4-10.2) mg/dL AST 21 (14-36) U/L ALT 17 (4-34) U/L Alkaline Phosphatase 104 (38-126) U/L Total Protein 6.3 (6.3-8.2) g/dL Albumin 3.1 L (3.5-5.0) g/dL Current Medications Generic Name Dose Route Start Last Admin Trade Name Bronwyn PRN Reason Stop Dose Admin Acetaminophen 650 mg 08/15/21 21:57 08/16/21 06:51 Acetaminophen Tab 325 Mg Tab PO 650 mg Q6HR PRN Administration Mild Pain or Fever > 100.5 Albuterol Sulfate 2.5 mg 08/16/21 08:50 Albuterol Nebulized 2.5 Mg/3 Ml INHALATION RT-Q4H PRN Shortness Of Breath Aripiprazole 5 mg 08/17/21 08:00 Aripiprazole 5 Mg Tab PO DAILY@0800 [facility] Aspirin 81 mg 08/16/21 17:00 Aspirin 81 Mg PO DAILY@1700 [facility] Atorvastatin Calcium 80 mg 08/16/21 21:00 Atorvastatin 80 Mg Tab PO HS@2100 [facility] Bisacodyl 10 mg 08/16/21 08:50 Bisacodyl 10 Mg Supp RECTAL DAILY PRN Constipation Calcium Carbonate/Glycine 500 mg 08/16/21 17:00 Calcium Carbonate 500 Mg Chewable PO DAILY@1700 [facility] Carvedilol 12.5 mg 08/16/21 17:00 Carvedilol 12.5 Mg Tab PO BID@0800,1700 [facility] Cholecalciferol 125 mcg 08/16/21 17:00 Cholecalciferol 25 Mcg (1000 Iu) Tablet PO DAILY@1700 [facility] Docusate Sodium 100 mg 08/16/21 08:50 Docusate 100 Mg Cap PO BID PRN Constipation Ferrous Sulfate 325 mg 08/16/21 12:00 08/16/21 12:30 Ferrous Sulfate 325 Mg Tab PO 325 mg TID@0800,1200,1700 [facility] Administration Furosemide 40 mg 08/16/21 09:00 08/16/21 08:21 Furosemide 10 Mg/Ml 4 Ml Vial IV 40 mg BID [facility] Administration Gabapentin 300 mg 08/16/21 14:00 Gabapentin 300 Mg Cap PO TID@0800,1400,2200 [facility] Cefepime HCl 2 gm/ Sodium 100 mls @ 25 mls/hr 08/16/21 21:00 Chloride IVPB Q12HR [facility] Insulin Aspart 0 unit 08/16/21 12:30 08/16/21 12:33 Insulin Aspart (Novolog) 100 Unit/Ml Vial SQ 6 unit ACHS [facility] Administration Protocol Insulin Detemir 65 unit 08/16/21 21:30 Insulin Detemir (Levemir) 100 Unit/Ml Syr SQ HS@2130 [facility] Isosorbide Mononitrate 30 mg 08/16/21 12:45 Isosorbide Mononitrate Er 30 Mg Tab.Er.24h PO DAILY [facility] Levothyroxine Sodium 50 mcg 08/17/21 08:00 Levothyroxine 50 Mcg Tab PO DAILY@0800 [facility] Liothyronine Sodium 5 mcg 08/17/21 08:00 Liothyronine Sodium 5 Mcg Tab PO DAILY@0800 [facility] Loratadine 10 mg 08/16/21 08:50 Loratadine 10 Mg Tab PO DAILY PRN Allergy Symptoms Magnesium Hydroxide 2,400 mg 08/16/21 08:50 Magnesium Hydroxide 2,400 Mg/10 Ml Cup PO DAILY PRN Constipation Naloxone HCl 0.2 mg 08/15/21 21:57 Naloxone 0.4 Mg/Ml 1 Ml Vial IV Q2M PRN Opioid Reversal Ropinirole HCl 0.5 mg 08/16/21 21:00 Ropinirole Hcl 0.25 Mg Tab PO HS@2100 [facility] Sertraline HCl 50 mg 08/17/21 08:00 Sertraline 50 Mg Tab PO DAILY@0800 [facility] Ticagrelor 90 mg 08/16/21 17:00 Ticagrelor 90 Mg Tab PO BID@0800,1700 [facility] Valsartan 160 mg 08/16/21 17:00 Valsartan 160 Mg Tab PO BID@0800,1700 [facility] Intake and Output 08/15/21 08/16/21 08/16/21 22:59 06:59 14:59 Intake Total 472 Balance 472 Intake: Oral 472 Other: Voiding Method External Catheter Weight 146.51 kg 08/15/21 18:38 08/15/21 18:38
--- NOTE | 2021-08-16 15:02 | CONS ---
DATE OF CONSULTATION: 08/16/2021 This is a 71-year-old female, well known to me from the past. The patient came a few weeks ago with wet gangrene of the left second toe. The patient was under the care of the wound center. I did the second toe amputation. The patient also had an angiogram which showed severe infrapopliteal disease. We have been treating this with Aquacel Silver to the big toe area. MEDICAL HISTORY: History of diabetes, peripheral vascular disease. PHYSICAL EXAMINATION: Patient has marked swelling of both lower extremities. Chest has rhonchi bilaterally. ABDOMEN: Soft. Femorals are 1+. Patient has left foot second toe ray amputation. There is some change on the plantar aspect of the left foot. There is some discoloration of the skin and some scab formation noted. The patient was seen by Dr. Booth. Patient to do revascularization of the leg. The patient will go for local wound care. We will use Aquacel Silver to the wound. MMODL / IJN: [id number] / LAURA
[2021-08-16] MEDS: GABAPENTIN 300 MG CAP PO SCH ×2 (15:41→22:02)
[2021-08-16] MEDS: ALBUTEROL NEBULIZED 2.5 MG/3 ML INHALATION PRN (16:28)
[2021-08-16] MEDS ORDERED: NON FORMULARY DRUG (Liquacel 30 ML) PO SCH (17:00)
[2021-08-16 17:09] LABS: Glucose,Whole Blood 179 mg/dL (75-99)
[2021-08-16] MEDS: CHOLECALCIFEROL 25 MCG (1000 IU) TABLET PO SCH (18:04)
[2021-08-16] MEDS: carvediloL 12.5 MG TAB PO SCH (18:04)
[2021-08-16] MEDS: ASPIRIN 81 MG PO SCH (18:04)
[2021-08-16] MEDS: CALCIUM CARBONATE 500 MG CHEWABLE PO SCH (18:04)
[2021-08-16] MEDS: TICAGRELOR 90 MG TAB PO SCH (18:15)
[2021-08-16] MEDS: VALSARTAN 160 MG TAB PO SCH (18:15)
[2021-08-16 20:08] LABS: Glucose,Whole Blood 220 mg/dL (75-99)
[2021-08-16] MEDS: CEFEPIME 2 GM in SODIUM CHLORIDE 0.9% 100 ML IVPB SCH (22:03)
[2021-08-16] MEDS: ATORVASTATIN 80 MG TAB PO SCH (22:03)
[2021-08-16] MEDS: INSULIN DETEMIR (LEVEMIR) 100 UNIT/ML SYR SQ SCH (22:05)
--- NOTE | 2021-08-16 22:41 | P.HPIM ---
History of Present Illness H&P Date: 08/16/21 Chief Complaint: leg swelling, nonhealing ulcer Karly Goyal is a 71 yo F with PMH of CAD s/p stenting last month, PAD, T2DM, HTN, chronic diastolic CHF who presented to the ED on the recommendation of her vascular surgeon due to continued L toe injection and concern for fluid overload. She was most recently admitted approximately 3 weeks ago at which time pt was noted with gangrene of her L 2nd toe and underwent amputation with Dr. Ansari. She was subsequently discharged to [facility] and has continued on cefepime without significant improvement in her wound. She has not been able to bear any weight on the foot. She denies chest pain or shortness of breath. On presentation, vitals stable, WBC normal, Hgb 8.8, BNP 4370, CRP 1.3. XR L foot no evidence of osteomyelitis. Review of Systems All systems: negative Constitutional: Reports malaise, Denies chills, Denies fever Eyes: denies blurred vision, denies pain Ears, nose, mouth and throat: Denies headache, Denies sore throat Cardiovascular: Reports dyspnea on exertion, Reports edema, Denies chest pain, Denies shortness of breath Respiratory: Denies cough Gastrointestinal: Denies abdominal pain, Denies diarrhea, Denies nausea, Denies vomiting Genitourinary: Denies dysuria, Denies hematuria Musculoskeletal: Denies myalgias Integumentary: Reports wounds, Denies pruritus, Denies rash Neurological: Denies numbness, Denies weakness Psychiatric: Denies anxiety, Denies depression Endocrine: Denies fatigue, Denies weight change Past Medical History Past Medical History: Coronary Artery Disease (CAD), CVA/TIA, Diabetes Mellitus, Eye Disorder, Hearing Disorder / Deafness, Hypertension, Liver Disease, Myocardial Infarction (HI), Osteoarthritis (OA), Sleep Apnea/CPAP/BIPAP, Syncope, Thyroid Disorder Additional Past Medical History / Comment(s): IDDM type II, neuropathy knees down bilaterally, ischemic cardiopmyopathy, 2009 small CVA with occasional word finding difficulty, R eye retinal bleed with some vision loss, bilateral diabetic retinopathy, fatty liver, chronic back pain, DDD< mild central canal st enosis, migraines, osteoporosis, UTI, bilateral tinnitis, BROCK no longer tolerates Cpap, benign thyroid nodules, CHI age 14, sycopal episodes as a child, sinus problems, wounds on feet Last Myocardial Infarction Date:: 07/2020 History of Any Multi-Drug Resistant Organisms: None Reported Past Surgical History: Breast Surgery, Heart Catheterization With Stent, Hysterectomy, Orthopedic Surgery, Tubal Ligation Additional Past Surgical History / Comment(s): PCI with stents in 06/2020 and 07/2020, several thyroid gland bxs, bilateral benign breast lumpectomies, D&c, bilateral feet 2 hammer toes each, R knee arthroscopy, low back injections, TTT, colonoscopies, bilateral cataract removals. Past Anesthesia/Blood Transfusion Reactions: No Reported Reaction, Motion Sickness Additional Past Anesthesia/Blood Transfusion Reaction / Comment(s): hypotension /memory problems Date of Last Stent Placement:: 2019 Past Psychological History: Anxiety, Bipolar, Depression Additional Psychological History / Comment(s): Patient resides at [facility] with her Smoking Status: Never smoker Past Alcohol Use History: None Reported Past Drug Use History: None Reported - Past Family History Father Family Medical History: Cancer Additional Family Medical History / Comment(s): Father had lymphoma. He had LUNG, BONE, THROAT AND MOUTH CANCER Brother(s) Family Medical History: Myocardial Infarction (HI) Additional Family Medical History / Comment(s): Muscle Disease, Rheumatic fever at 2 years old Mother Family Medical History: Cancer Additional Family Medical History / Comment(s): lung cancer- mother. She at the age of 79yrs from esophageal valencia after radiation-unable to eat. Patient states "mother had aneurysm". Medications and Allergies Home Medications Medication Instructions Recorded Confirmed Type Levothyroxine Sodium [Synthroid] 50 mcg PO DAILY@0808/21/17 08/15/21 History Cetirizine HCl [Zyrtec] 10 mg PO DAILY PRN 05/06/20 08/15/21 History Liothyronine Sodium [Cytomel] 5 mcg PO DAILY@79905/06/20 08/15/21 History Sertraline HCl [Zoloft] 50 mg PO DAILY@79905/06/20 08/15/21 History Calcium Carbonate [Calcium] 600 mg PO DAILY@1700 07/15/20 08/15/21 History Docusate [Colace] 100 mg PO BID PRN 07/15/20 08/15/21 History Cholecalciferol (Vitamin D3) 125 mcg PO DAILY@1700 03/26/21 09/20/21 History [Vitamin D3 (5000 Iu)] Glimepiride [Amaryl] 4 mg PO DAILY@79904/07/21 08/15/21 History ARIPiprazole [Abilify] 5 mg PO DAILY@0807/16/21 08/15/21 History Diclofenac Sodium Gel [Voltaren 4 gm TOPICAL QID PRN 07/16/21 08/15/21 History Gel] Nitroglycerin Sl Tabs [Nitrostat] 0.4 mg SL Q5M PRN 07/16/21 08/15/21 History rOPINIRole HCL [Requip] 0.5 mg PO HS@209907/16/21 08/15/21 History Acetaminophen Tab [Tylenol] 650 mg PO Q6HR PRN tab 07/29/21 08/15/21 Rx Albuterol Nebulized [Ventolin 2.5 mg INHALATION RT-Q4H PRN 08/15/21 08/15/21 History Nebulized] Aspirin 81 mg PO DAILY@169908/15/21 08/15/21 History Atorvastatin [Lipitor] 80 mg PO HS@209908/15/21 08/15/21 History Cefepime [Maxipime] 2 gm IVPB BID@0800,209908/15/21 08/15/21 History Ferrous Sulfate [Feosol] 325 mg PO TID@0800,1200,1700 08/15/21 08/15/21 History Furosemide [Lasix] 40 mg PO DAILY@0808/15/21 08/15/21 History Gabapentin [Neurontin] 300 mg PO TID@0800,1400,2200 08/15/21 08/15/21 History INSULIN ASPART (NovoLOG) [NovoLOG 15 unit SQ TID@0700,1100,1830 PRN 08/15/21 08/15/21 History (formulary)] INSULIN ASPART (NovoLOG) [NovoLOG See Protocol SQ ACHS 08/15/21 08/15/21 History (formulary)] Insulin Glargine [Lantus Vial] 65 unit SQ HS@212908/15/21 08/15/21 History Liquacel 30 ml PO BID@0800,1700 08/15/21 08/15/21 History Loperamide HCl [Imodium A-D] 2 - 4 mg PO TID PRN 08/15/21 08/15/21 History Magnesium Hydroxide [Milk of 2,400 mg PO DAILY PRN 08/15/21 08/15/21 History Magnesia] Na Phos,M-B/Na Phos,Di-Ba [Fleet 133 ml RECTAL DAILY PRN 08/15/21 08/15/21 History Adult] Saccharomyces Boulardii 250 mg PO DAILY@0800 08/15/21 08/15/21 History [Saccharomycin Df] Ticagrelor [Brilinta] 90 mg PO BID@0800,1700 08/15/21 08/15/21 History Valsartan [Diovan] 160 mg PO BID@0800,1700 08/15/21 08/15/21 History bisacodyL [Dulcolax] 10 mg RECTAL DAILY PRN 08/15/21 08/15/21 History carvediloL [Coreg*] 12.5 mg PO BID@0800,1700 08/15/21 08/15/21 History Allergies Allergy/AdvReac Type Severity Reaction Status Date / Time Iodinated Contrast Media Allergy Swelling, Verified 08/15/21 23:09 [Iodinated Contrast Media - SHORTNESS IV Dye] OF BREATH latex Allergy Rash/Hives Verified 08/15/21 23:09 talc Allergy Rash/Hives Verified 08/15/21 23:09 adhesive tape AdvReac blisters Verified 08/15/21 23:09 amlodipine AdvReac ankle Verified 08/15/21 23:09 swelling hydralazine AdvReac Diarrhea Verified 08/15/21 23:09 metal Allergy Rash/Hives Uncoded 08/15/21 17:48 Physical Exam Vitals: Vital Signs Temp Pulse Pulse Resp BP BP Pulse Ox 08/16/21 20:10 98.6 F 80 16 168/62 98 08/16/21 16:37 80 08/16/21 16:31 74 08/16/21 14:55 97.9 F 78 18 164/88 97 08/16/21 14:03 98 F 80 16 164/61 95 08/16/21 07:23 97.9 F 72 16 157/60 99 08/16/21 06:43 78 21 162/63 99 08/16/21 03:46 82 22 169/84 97 08/16/21 00:44 88 08/16/21 00:35 89 08/15/21 23:13 91 20 167/89 95 Intake and Output 08/16/21 08/16/21 08/16/21 06:59 14:59 22:59 Intake Total 472 Output Total 400 Balance 72 Intake: Oral 472 Output: Urine 400 Other: Voiding Method External Catheter External Catheter Weight 147 kg General: well nourished, well developed, obese, NAD. Vitals reviewed Eyes: PERRL, EOMI, conjunctiva normal HENT: normocephalic, mucus membranes moist Neck: supple, no JVD Lungs: normal respiratory effort, no wheezes or rales CV: Regular rate and rhythm, no murmur. Peripheral pulses 2+. 2+ edema hair LE Abdomen: soft, nondistended, no organomegaly Lymph: no cervical or axillary LAD Skin: warm and dry. L 2nd toe s/p amputation, wound base with granulation tissue Neuro: A&Ox3, normal mood and affect Results CBC & Chem 7: 08/15/21 18:38 08/15/21 18:38 Labs: Abnormal Lab Results - Last 24 Hours (Table) 08/16/21 08/16/21 08/16/21 Range/Units 00:48 07:13 11:33 POC Glucose (mg/dL) 238 H 170 H 206 H (75-99) mg/dL 08/16/21 08/16/21 Range/Units 17:08 20:07 POC Glucose (mg/dL) 179 H 220 H (75-99) mg/dL Microbiology - Last 24 Hours (Table) 08/15/21 20:59 Gram Stain - Preliminary Foot - Left Wound Culture - Preliminary Thrombosis Risk Factor Assmnt - Choose All That Apply Any of the Below Risk Factors Present?: Yes Each Factor Represents 1 point: Medical pt on bed rest, Obesity (BMI >25) Other Risk Factors: Yes Each Risk Factor Represents 2 Points: Age 61-74 years Other congenital or acquired thrombophilia - If yes, enter type in comment: No Thrombosis Risk Factor Assessment Total Risk Factor Score: 4 Thrombosis Risk Factor Assessment Level: Moderate Risk Assessment and Plan Plan: 1. Acute on chronic diastolic CHF. Admit, consult cardiology. Start IV lasix 40 mg bid. Continue coreg, ASA, brilinta, lipitor 2. Critical ischemia of LLE. Vascular consult, plan for surgery this week. 3. Cellulitis and s/p amputation of L 2nd toe. Continue with cefepime bid 4. T2DM. Continue long acting insulin, accucheck, sliding scale
[2021-08-16] MEDS: COLLAGENASE 250 UNIT/GM OINTMENT 30 GM TUBE TOPICAL SCH (22:45)
[2021-08-17 05:40] LABS: African American GFR (CKD) 67 (>60 ml/min/1.73 sqM); Anion Gap 3 mmol/L; Blood Urea Nitrogen 47 mg/dL (7-17); Calcium 10.2 mg/dL (8.4-10.2); Carbon Dioxide 25 mmol/L (22-30); Chloride 109 mmol/L (98-107); Glucose 98 mg/dL (74-99); Non-African American GFR(CKD) 58 (>60 ml/min/1.73 sqM); Potassium 4.7 mmol/L (3.5-5.1); Sodium 137 mmol/L (137-145)
[2021-08-17 06:03] LABS: Glucose,Whole Blood 99 mg/dL (75-99)
[2021-08-17] MEDS: INSULIN ASPART (NovoLOG) 100 UNIT/ML VIAL SQ SCH ×4 (07:20→22:14)
[2021-08-17] MEDS: FUROSEMIDE 10 MG/ML 4 ML VIAL IV SCH ×2 (08:35→22:08)
[2021-08-17] MEDS: carvediloL 12.5 MG TAB PO SCH ×2 (08:35→17:24)
[2021-08-17] MEDS: GABAPENTIN 300 MG CAP PO SCH ×3 (08:35→22:07)
[2021-08-17] MEDS: FERROUS SULFATE 325 MG TAB PO SCH ×3 (08:35→17:24)
[2021-08-17] MEDS: LEVOTHYROXINE 50 MCG TAB PO SCH (08:36)
[2021-08-17] MEDS: ISOSORBIDE MONONITRATE ER 30 MG TAB.ER.24H PO SCH (08:36)
[2021-08-17] MEDS: VALSARTAN 160 MG TAB PO SCH ×2 (08:36→17:24)
[2021-08-17] MEDS: SERTRALINE 50 MG TAB PO SCH (08:36)
[2021-08-17] MEDS: CEFEPIME 2 GM in SODIUM CHLORIDE 0.9% 100 ML IVPB SCH ×2 (08:37→22:09)
[2021-08-17] MEDS: ARIPiprazole 5 MG TAB PO SCH (08:37)
[2021-08-17] MEDS: TICAGRELOR 90 MG TAB PO SCH ×2 (08:37→17:24)
[2021-08-17] MEDS: LIOTHYRONINE SODIUM 5 MCG TAB PO SCH (08:37)
[2021-08-17] MEDS: COLLAGENASE 250 UNIT/GM OINTMENT 30 GM TUBE TOPICAL SCH (11:21)
--- NOTE | 2021-08-17 11:47 | P.PN ---
Subjective The patient is a 71-year-old female with past medical history of coronary artery disease status post stenting in June and July 2020 and most recently in June 2021, obesity, type 2 diabetes, hypertension, ischemic cardiomyopathy EF 40-45%, hyperlipidemia, peripheral vascular disease, obstructive sleep apnea, who follows in the office with Dr. Acevedo. We have been asked to see in consultation for congestive heart failure. Patient presents to the emergency department 08/16/21 with worsening left foot ulcer infection. She states she had a visit from a wound care doctor and was told to go to the emergency department for further evaluation. She has been having worsening shortness of breath and dyspnea on exertion. Patient was recently admitted in June 2021 with an NSTEMI and underwent cardiac catheterization which revealed instent restenosis lesion with in the proximal LAD stent, 55% stenosis in the distal RCA, 55% stenosis in the midcircumflex. She underwent successful stent placement to the proximal LAD with Dr. Lynn. echocardiogram revealed EF 40-45%, mild mitral regurgitation, mild tricuspid regurgitation. After being discharged on 07/20/21, she presented to the ER on 07/24/21 with complaints of left second toe infection Patient underwent left second toe amputation on 07/25/2021. Recent cultures growing Pseudomonas and staph aureus. She also underwent left lower extremity angiogram on 07/30/2021 which revealed Mid SFA short segment total occlusion, perineal and posterior tibial occluded, anterior tibial has 2 segment high-grade stenosis. She was discharged to [facility] receiving IV antibiotics through PICC line. 08/17/21: Patient seen and examined at bedside, no acute distress. She states her shortness of breath is improved and her lower extremity edema has improved. Over the past 24 hours patient with 1 L urine output. Decreased weight, does not appear accurately documented. Laboratory data reviewed sodium 137, potassium 4.7, BUN 47, serum creatinine 0.9. Patient is currently maintained on dual antiplatelet therapy aspirin 81 mg daily and Brilinta 90 mg twice a day, atorvastatin 80 mg nightly, carvedilol 12.5 mg twice a day, IV Lasix 40 mg twice a day, Imdur 30 mg daily, valsartan 160 mg twice a day. Patient is also receiving IV antibiotics. PHYSICAL EXAMINATION Blood pressure 163/70, heart rate 72, afebrile, maintaining oxygen saturation on 2 L nasal cannula. CONSTITUTIONAL: No apparent distress. HEENT:Neck Supple. CHEST EXAMINATION: Lungs are clear to auscultation. No chest wall tenderness is noted on palpation or with deep breathing. HEART EXAMINATION: Regular rate and rhythm. S1, S2 heard. No murmurs, gallops or rub. ABDOMEN: Soft, nontender. Positive bowel sounds. EXTREMITIES: 2+ peripheral pulses, moderate non-pitting lower extremity edema, seems improved from yesterday Left foot covered in HEIDE wrap NEUROLOGIC EXAMINATION: Patient is awake, alert and oriented x3. ASSESSMENT Left second toe diabetic foot infection status post amputation on 07/25/2021 Coronary artery disease s/p PCI Recent NSTEMI status post stenting of LAD on 07/16/2021 Ischemic cardiomyopathy EF 40-45% Acute on chronic systolic heart failure Type 2 diabetes Hypertension Obstructive sleep apnea Diabetic neuropathy Acute on chronic kidney disease PLAN -Continue IV Diuresis Lasix 40mg BID -Continue Imdur 30mg daily, carvedilol, statin and valsartan -Continue dual antiplatelet therapy with aspirin and Brilinta -Monitor renal function and electrolytes -Further recommendations based on clinical course Nurse Practitioner note has been reviewed, I agree with a documented findings and plan of care. Patient was seen and examined. Objective - Vital Signs Vital signs: Vital Signs Temp 98 F 08/16/21 14:03 Pulse 80 08/16/21 14:03 Resp 16 08/16/21 14:03 BP 164/61 08/16/21 14:03 Pulse Ox 95 08/16/21 14:03 Intake & Output 08/15/21 08/16/21 08/16/21 18:59 06:59 18:59 Intake Total 472 Output Total 400 Balance 72 Weight 146.51 kg Intake: Oral 472 Output: Urine 400 Other: Voiding Method External Catheter - Labs CBC & Chem 7: 08/15/21 18:38 08/17/21 05:07 Labs: Abnormal Lab Results - Last 24 Hours (Table) 08/15/21 08/15/21 08/15/21 Range/Units 18:38 18:38 18:38 RBC 3.19 L (3.80-5.40) m/uL Hgb 8.6 L D (11.4-16.0) gm/dL Hct 26.8 L (34.0-46.0) % Plt Count 493 H (150-450) k/uL APTT 20.9 L (22.0-30.0) sec Chloride 109 H (98-107) mmol/L BUN 50 H (7-17) mg/dL Creatinine 1.16 H (0.52-1.04) mg/dL Glucose 109 H (74-99) mg/dL POC Glucose (mg/dL) (75-99) mg/dL C-Reactive Protein 1.3 H (<1.0) mg/dL Albumin 3.1 L (3.5-5.0) g/dL 08/16/21 08/16/21 08/16/21 Range/Units 00:48 07:13 11:33 RBC (3.80-5.40) m/uL Hgb (11.4-16.0) gm/dL Hct (34.0-46.0) % Plt Count (150-450) k/uL APTT (22.0-30.0) sec Chloride (98-107) mmol/L BUN (7-17) mg/dL Creatinine (0.52-1.04) mg/dL Glucose (74-99) mg/dL POC Glucose (mg/dL) 238 H 170 H 206 H (75-99) mg/dL C-Reactive Protein (<1.0) mg/dL Albumin (3.5-5.0) g/dL Microbiology - Last 24 Hours (Table) 08/15/21 20:59 Gram Stain - Preliminary Foot - Left Wound Culture - Preliminary
[2021-08-17 12:25] LABS: Glucose,Whole Blood 190 mg/dL (75-99)
--- NOTE | 2021-08-17 14:55 | P.PN ---
Subjective Progress Note Date: 08/17/21 Principal diagnosis: Left foot wound with peripheral arterial occlusive disease Patient was seen and examined today lying in bed. States she has pain in the left lower extremity. She is being followed by Dr. Ansari for local wound care. No acute changes through the night. She's been afebrile. She is currently being treated with antibiotics and is on cefepime. Patient had recent history of stenting in June 2021. She was recently admitted in June 2021 with an STEMI and underwent cardiac catheterization which revealed in-stent restenosis lesion with in the proximal LAD stent, 55% stenosis in the distal RCA, 55% stenosis in the midcircumflex. She underwent stent placement to the proximal LAD with recent echocardiogram revealing EF of 40-45%. And is currently on Proventil Objective - Vital Signs Vital signs: Vital Signs Temp 97.8 F 08/17/21 12:10 Pulse 71 08/17/21 12:10 Resp 18 08/17/21 12:10 BP 162/72 08/17/21 12:10 Pulse Ox 98 08/17/21 12:10 Intake & Output 08/16/21 08/17/21 08/17/21 18:59 06:59 18:59 Intake Total 472 480 Output Total 400 600 Balance 72 -120 Weight 147 kg 139 kg 139 kg Intake: Oral 472 480 Output: Urine 400 600 Other: Voiding Method External Catheter External Catheter External Catheter # Voids 1 # Bowel Movements 1 1 - Exam General appearance: The patient is alert, oriented, appears in no acute distress. Obese. HET: Head is normocephalic and atraumatic. Neck: Supple without lymphadenopathy. Trachea midline. Abdomen: Soft, nontender, nondistended with bowel sounds. No peritoneal signs. No palpable organomegaly or masses. Extremities: Bilateral lower extremity edema. Left foot with dressing clean dry and intact. Good capillary refill. Neurological: Alert and oriented 3. - Labs CBC & Chem 7: 08/15/21 18:38 08/17/21 05:07 Labs: Abnormal Lab Results - Last 24 Hours (Table) 08/16/21 08/16/21 08/17/21 Range/Units 17:08 20:07 05:07 Chloride 109 H (98-107) mmol/L BUN 47 H (7-17) mg/dL POC Glucose (mg/dL) 179 H 220 H (75-99) mg/dL 08/17/21 Range/Units 12:23 Chloride (98-107) mmol/L BUN (7-17) mg/dL POC Glucose (mg/dL) 190 H (75-99) mg/dL Microbiology - Last 24 Hours (Table) 08/15/21 20:59 Gram Stain - Preliminary Foot - Left Wound Culture - Preliminary Presumptive Staph aureus Gram Neg Bacilli Assessment and Plan Assessment: 1. Critical limb ischemia of left foot Only 5 2. Chronic left foot wound 3. Diabetic neuropathy 4. History of coronary artery disease status post recent end STEMI with stent placement 06/2021 Plan: 1. Continue local wound care 2. Discuss with cardiology will need cardiac clearance to proceed with left lower extremity revascularization of the SFA and anterior tibial artery 3. Continue medical management 4. Continue IV antibiotics 5. Further recommendations on timing of left lower extremity revascularization Thank you for this consult, we will continue to follow. The impression and plan of care has been dictated as directed. Dr. Brizuela I performed a history and examination of this patient, discussed the same with the dictator. I agree with the dictator's note ,documented as a scribe. Any additional findings or plans will be noted.
--- NOTE | 2021-08-17 15:01 | P.PN ---
Subjective Progress Note Date: 08/17/21 Karly Goyal is a 71 yo F with PMH of CAD s/p stenting last month, PAD, T2DM, HTN, chronic diastolic CHF who presented to the ED on the recommendation of her vascular surgeon due to continued L toe injection and concern for fluid overload. She was most recently admitted approximately 3 weeks ago at which time pt was noted with gangrene of her L 2nd toe and underwent amputation with Dr. Ansari. She was subsequently discharged to [facility] and has continued on cefepime without significant improvement in her wound. She has not been able to bear any weight on the foot. She denies chest pain or shortness of breath. On presentation, vitals stable, WBC normal, Hgb 8.8, BNP 4370, CRP 1.3. XR L foot no evidence of osteomyelitis. 08/17/2021 Continues on dual antiplatelet therapy with aspirin and Brilenta, re cent NSTEMI with stenting of the LAD on 07/16/2021. Appears to be diuresing well on Lasix IV push, edema improving. Renal function improving. Evaluated by cardiology and vascular surgery with recommendations noted and appreciated. Blood sugars better controlled today. Maintained on cefepime. Objective - Vital Signs Vital signs: Vital Signs Temp 97.8 F 08/17/21 12:10 Pulse 71 08/17/21 12:10 Resp 18 08/17/21 12:10 BP 162/72 08/17/21 12:10 Pulse Ox 98 08/17/21 12:10 Intake & Output 08/16/21 08/17/21 08/17/21 18:59 06:59 18:59 Intake Total 472 480 Output Total 400 600 Balance 72 -120 Weight 147 kg 139 kg 139 kg Intake: Oral 472 480 Output: Urine 400 600 Other: Voiding Method External Catheter External Catheter External Catheter # Voids 1 # Bowel Movements 1 1 - Exam General: obese, sitting up in bed, NAD. Vitals reviewed Eyes: PERRL, EOMI, conjunctiva normal HENT: normocephalic, mucus membranes moist Neck: supple, no JVD Lungs: normal respiratory effort, no wheezes or rales CV: Regular rate and rhythm, no murmur. Peripheral pulses 2+. Decreasing edema hair LE Abdomen: soft, nondistended, no organomegaly, positive bowel sounds Skin: warm and dry. L 2nd toe s/p amputation, dressing clean dry and intact Neuro: A&Ox3, normal mood and affect - Labs CBC & Chem 7: 08/15/21 18:38 08/17/21 05:07 Labs: Abnormal Lab Results - Last 24 Hours (Table) 08/16/21 08/16/21 08/17/21 Range/Units 17:08 20:07 05:07 Chloride 109 H (98-107) mmol/L BUN 47 H (7-17) mg/dL POC Glucose (mg/dL) 179 H 220 H (75-99) mg/dL 08/17/21 Range/Units 12:23 Chloride (98-107) mmol/L BUN (7-17) mg/dL POC Glucose (mg/dL) 190 H (75-99) mg/dL Microbiology - Last 24 Hours (Table) 08/15/21 20:59 Gram Stain - Preliminary Foot - Left Wound Culture - Preliminary Presumptive Staph aureus Gram Neg Bacilli Assessment and Plan Assessment: 1. Acute on chronic diastolic CHF. 2. Hypoxic respiratory failure secondary to the above. 3. Critical ischemia of LLE. Vascular following 4. Cellulitis and s/p amputation of L 2nd toe. 5. Recent NSTEMI with stenting of the LAD on 07/16/2021. 6. T2DM. Plan: Continue on current medication regime ,monitoring and symptomatic treatment. Continue with cefepime.Tightly control blood sugars with long-acting insulin and sliding scale /close monitoring of Accu-Cheks. Continue on diuretics with close monitoring of renal function, electrolytes. Maintain dual antiplatelet therapy with both aspirin and Brilinta. Follow closely with both cardiology and vascular surgery. The impression and plan of care has been dictated as directed. : I performed a history and examination of this patient, discussed the same with the dictator. I agree with the dictator's note ,documented as a scribe. Any additional findings or plans will be noted.
[2021-08-17] MEDS: ALBUTEROL NEBULIZED 2.5 MG/3 ML INHALATION PRN (16:08)
[2021-08-17 17:10] LABS: Glucose,Whole Blood 259 mg/dL (75-99)
[2021-08-17] MEDS: CHOLECALCIFEROL 25 MCG (1000 IU) TABLET PO SCH (17:25)
[2021-08-17] MEDS: CALCIUM CARBONATE 500 MG CHEWABLE PO SCH (17:25)
[2021-08-17] MEDS: ASPIRIN 81 MG PO SCH (17:25)
[2021-08-17 21:07] LABS: Glucose,Whole Blood 204 mg/dL (75-99)
[2021-08-17] MEDS: ATORVASTATIN 80 MG TAB PO SCH (22:07)
[2021-08-17] MEDS: INSULIN DETEMIR (LEVEMIR) 100 UNIT/ML SYR SQ SCH (22:14)
[2021-08-18 06:47] LABS: Glucose,Whole Blood 154 mg/dL (75-99)
[2021-08-18 07:07] LABS: African American GFR (CKD) 70 (>60 ml/min/1.73 sqM); Anion Gap 5 mmol/L; Blood Urea Nitrogen 41 mg/dL (7-17); Calcium 10.2 mg/dL (8.4-10.2); Carbon Dioxide 26 mmol/L (22-30); Chloride 107 mmol/L (98-107); Glucose 145 mg/dL (74-99); Magnesium 1.8 mg/dL (1.6-2.3); Non-African American GFR(CKD) 61 (>60 ml/min/1.73 sqM); Sodium 138 mmol/L (137-145)
[2021-08-18] MEDS: CEFEPIME 2 GM in SODIUM CHLORIDE 0.9% 100 ML IVPB SCH ×2 (10:01→21:34)
[2021-08-18] MEDS: FUROSEMIDE 10 MG/ML 4 ML VIAL IV SCH (10:02)
[2021-08-18] MEDS: INSULIN ASPART (NovoLOG) 100 UNIT/ML VIAL SQ SCH ×4 (10:04→21:34)
[2021-08-18] MEDS: FERROUS SULFATE 325 MG TAB PO SCH ×3 (10:04→17:02)
[2021-08-18] MEDS: ISOSORBIDE MONONITRATE ER 30 MG TAB.ER.24H PO SCH (10:05)
[2021-08-18] MEDS: LEVOTHYROXINE 50 MCG TAB PO SCH (10:05)
[2021-08-18] MEDS: TICAGRELOR 90 MG TAB PO SCH ×2 (10:05→17:06)
[2021-08-18] MEDS: carvediloL 12.5 MG TAB PO SCH ×2 (10:05→17:01)
[2021-08-18] MEDS: GABAPENTIN 300 MG CAP PO SCH ×3 (10:05→21:33)
[2021-08-18] MEDS: SERTRALINE 50 MG TAB PO SCH (10:05)
[2021-08-18] MEDS: VALSARTAN 160 MG TAB PO SCH ×2 (10:06→17:06)
[2021-08-18] MEDS: ARIPiprazole 5 MG TAB PO SCH (10:06)
[2021-08-18] MEDS: LIOTHYRONINE SODIUM 5 MCG TAB PO SCH (10:06)
--- NOTE | 2021-08-18 11:19 | P.PN ---
Subjective The patient is a 71-year-old female with past medical history of coronary artery disease status post stenting in June and July 2020 and most recently in June 2021, obesity, type 2 diabetes, hypertension, ischemic cardiomyopathy EF 40-45%, hyperlipidemia, peripheral vascular disease, obstructive sleep apnea, who follows in the office with Dr. Acevedo. We have been asked to see in consultation for congestive heart failure. Patient presents to the emergency department 08/16/21 with worsening left foot ulcer infection. She states she had a visit from a wound care doctor and was told to go to the emergency department for further evaluation. She has been having worsening shortness of breath and dyspnea on exertion. Patient was recently admitted in June 2021 with an NSTEMI and underwent cardiac catheterization which revealed instent restenosis lesion with in the proximal LAD stent, 55% stenosis in the distal RCA, 55% stenosis in the midcircumflex. She underwent successful stent placement to the proximal LAD with Dr. Lynn. echocardiogram revealed EF 40-45%, mild mitral regurgitation, mild tricuspid regurgitation. After being discharged on 07/20/21, she presented to the ER on 07/24/21 with complaints of left second toe infection Patient underwent left second toe amputation on 07/25/2021. Recent cultures growing Pseudomonas and staph aureus. She also underwent left lower extremity angiogram on 07/30/2021 which revealed Mid SFA short segment total occlusion, perineal and posterior tibial occluded, anterior tibial has 2 segment high-grade stenosis. She was discharged to [facility] receiving IV antibiotics through PICC line. 08/18/21: Patient seen and examined at bedside, no acute distress. She states her shortness of breath is improved and her lower extremity edema has improved. Over the past 24 hours patient with 2.6L urine output. Weight 145kg from 147kg on admission. Laboratory data reviewed sodium 138, potassium 5.0, BUN 41, serum creatinine 0.94, magnesium 1.8 Patient is currently maintained on dual antiplatelet therapy aspirin 81 mg daily and Brilinta 90 mg twice a day, atorvastatin 80 mg nightly, carvedilol 12.5 mg twice a day, IV Lasix 40 mg twice a day, Imdur 30 mg daily, valsartan 160 mg twice a day. Patient is also receiving IV antibiotics. PHYSICAL EXAMINATION Blood pressure 1:15/67, heart rate 82, afebrile, maintaining oxygen saturations on 2 L nasal cannula CONSTITUTIONAL: No apparent distress. HEENT:Neck Supple. CHEST EXAMINATION: Lungs are clear to auscultation. No chest wall tenderness is noted on palpation or with deep breathing. HEART EXAMINATION: Regular rate and rhythm. S1, S2 heard. No murmurs, gallops or rub. ABDOMEN: Soft, nontender. Positive bowel sounds. EXTREMITIES: 2+ peripheral pulses, moderate non-pitting lower extremity edema, seems improved from yesterday Left foot covered in HEIDE wrap NEUROLOGIC EXAMINATION: Patient is awake, alert and oriented x3. ASSESSMENT Left second toe diabetic foot infection status post amputation on 07/25/2021 Coronary artery disease s/p PCI Recent NSTEMI status post stenting of LAD on 07/16/2021 Ischemic cardiomyopathy EF 40-45% Acute on chronic systolic heart failure Type 2 diabetes Hypertension Obstructive sleep apnea Diabetic neuropathy Acute on chronic kidney disease PLAN -Transition to PO Lasix 40mg BID -Vascular consulted, plan for possible left lower extremity revascularization of the SFA and anterior tibial artery. From a cardiology perspective patient is at moderate risk due to recent NSTEMI and cardiac history as noted above. From a cardiology perspective, benefit of surgery outweighs risk at this time. Patient is hemodynamically stable. Recommend cautious fluid administration and optimal BP control. -Continue Imdur 30mg daily, carvedilol, statin and valsartan -Continue dual antiplatelet therapy with aspirin and Brilinta -Monitor renal function and electrolytes -Further recommendations based on clinical course Nurse Practitioner note has been reviewed, I agree with a documented findings and plan of care. Patient was seen and examined. Objective - Vital Signs Vital signs: Vital Signs Temp 98.6 F 08/18/21 04:57 Pulse 82 08/18/21 04:57 Resp 16 08/18/21 04:57 BP 158/67 08/18/21 04:57 Pulse Ox 96 08/18/21 06:13 Intake & Output 08/17/21 08/18/21 08/18/21 18:59 06:59 18:59 Intake Total 480 Output Total 600 2000 Balance -120 -1999 Weight 139 kg 145 kg Intake: Oral 480 Output: Urine 600 2000 Other: Voiding Method External Catheter Diaper External Catheter # Voids 1 # Bowel Movements 1 - Labs CBC & Chem 7: 08/15/21 18:38 08/18/21 05:38 Labs: Abnormal Lab Results - Last 24 Hours (Table) 08/17/21 08/17/21 08/17/21 Range/Units 12:23 17:07 21:05 BUN (7-17) mg/dL Glucose (74-99) mg/dL POC Glucose (mg/dL) 190 H 259 H 204 H (75-99) mg/dL 08/18/21 08/18/21 Range/Units 05:38 06:46 BUN 41 H (7-17) mg/dL Glucose 145 H (74-99) mg/dL POC Glucose (mg/dL) 154 H (75-99) mg/dL Microbiology - Last 24 Hours (Table) 08/15/21 20:59 Gram Stain - Preliminary Foot - Left Wound Culture - Preliminary Presumptive Staph aureus Gram Neg Bacilli
[2021-08-18 12:06] LABS: Glucose,Whole Blood 158 mg/dL (75-99)
--- NOTE | 2021-08-18 12:15 | P.PN ---
Subjective Progress Note Date: 08/18/21 Principal diagnosis: Left foot wound with peripheral arterial occlusive disease Patient was seen and examined today lying in bed. States she has pain in the left lower extremity. She is being followed by Dr. Ansari for local wound care. She is currently being treated with antibiotics and is on cefepime. Patient had recent history of stenting in June 2021. She was recently admitted in June 2021 with an STEMI and underwent cardiac catheterization which revealed in-stent restenosis lesion with in the proximal LAD stent, 55% stenosis in the distal RCA, 55% stenosis in the midcircumflex. She underwent stent placement to the proximal LAD with recent echocardiogram revealing EF of 40-45%. And is currently on Brilinta. No acute changes through the night. Patient states pain is improving to her left lower extremity. Patient has been afebrile. Cardiology is on consult and has seen patient and reported that patient is moderate risk due to recent and STEMI and cardiac history however from a cardiology perspective benefit of surgery outweighs risk at this time. He state patient is hemodynamically stable and recommend cautious fluid administration and optimal blood pressure control. Objective - Vital Signs Vital signs: Vital Signs Temp 98.6 F 08/18/21 04:57 Pulse 82 08/18/21 04:57 Resp 16 08/18/21 04:57 BP 158/67 08/18/21 04:57 Pulse Ox 96 08/18/21 06:13 Intake & Output 08/17/21 08/18/21 08/18/21 18:59 06:59 18:59 Intake Total 480 Output Total 600 2000 Balance -120 -2000 Weight 139 kg 145 kg Intake: Oral 480 Output: Urine 600 2000 Other: Voiding Method External Catheter Diaper External Catheter # Voids 1 # Bowel Movements 1 - Exam General appearance: The patient is alert, oriented, appears in no acute distress. Obese. HET: Head is normocephalic and atraumatic. Neck: Supple without lymphadenopathy. Trachea midline. Abdomen: Soft, nontender, nondistended with bowel sounds. No peritoneal signs. No palpable organomegaly or masses. Extremities: Bilateral lower extremity edema. Left foot with dressing clean dry and intact. Good capillary refill. Neurological: Alert and oriented 3. - Labs CBC & Chem 7: 08/15/21 18:38 08/18/21 05:38 Labs: Abnormal Lab Results - Last 24 Hours (Table) 08/17/21 08/17/21 08/17/21 Range/Units 12:23 17:07 21:05 BUN (7-17) mg/dL Glucose (74-99) mg/dL POC Glucose (mg/dL) 190 H 259 H 204 H (75-99) mg/dL 08/18/21 08/18/21 Range/Units 05:38 06:46 BUN 41 H (7-17) mg/dL Glucose 145 H (74-99) mg/dL POC Glucose (mg/dL) 154 H (75-99) mg/dL Microbiology - Last 24 Hours (Table) 08/15/21 20:59 Gram Stain - Final Foot - Left Wound Culture - Final Staphylococcus aureus Pseudomonas aeruginosa Assessment and Plan Assessment: 1. Critical limb ischemia of left foot Wolfe 5 2. Chronic left foot wound 3. Diabetic neuropathy 4. History of coronary artery disease status post recent end STEMI with stent placement 06/2021 Plan: 1. Continue local wound care 2. Continue medical management 3. Continue IV antibiotics 4. Nothing by mouth after midnight 5. Patient will be scheduled for left SFA atherectomy with balloon angioplasty and possible stenting tomorrow Dr. Booth 6. Cardiology on consult, and stated from a cardiology perspective patient is at moderate risk due to recent STEMI and cardiac history however from cardiology perspective benefit of surgery outweighs risk at this time. Patient is hemodynamically stable. Recommend cautious fluid administration and optimal blood pressure control. Thank you for this consult, we will continue to follow. The impression and plan of care has been dictated as directed. Dr. Booth I performed a history and examination of this patient, discussed the same with the dictator. I agree with the dictator's note ,documented as a scribe. Any additional findings or plans will be noted.
[2021-08-18] MEDS: COLLAGENASE 250 UNIT/GM OINTMENT 30 GM TUBE TOPICAL SCH (13:12)
--- NOTE | 2021-08-18 13:20 | P.PN ---
Subjective Progress Note Date: 08/18/21 Karly Goyal is a 71 yo F with PMH of CAD s/p stenting last month, PAD, T2DM, HTN, chronic diastolic CHF who presented to the ED on the recommendation of her vascular surgeon due to continued L toe injection and concern for fluid overload. She was most recently admitted approximately 3 weeks ago at which time pt was noted with gangrene of her L 2nd toe and underwent amputation with Dr. Ansari. She was subsequently discharged to [facility] and has continued on cefepime without significant improvement in her wound. She has not been able to bear any weight on the foot. She denies chest pain or shortness of breath. On presentation, vitals stable, WBC normal, Hgb 8.8, BNP 4370, CRP 1.3. XR L foot no evidence of osteomyelitis. 08/17/2021 Continues on dual antiplatelet therapy with aspirin and Brilenta, re cent NSTEMI with stenting of the LAD on 07/16/2021. Appears to be diuresing well on Lasix IV push, edema improving. Renal function improving. Evaluated by cardiology and vascular surgery with recommendations noted and appreciated. Blood sugars better controlled today. Maintained on cefepime. 08/18/2021 oxygen requirements increased up to 3 L to maintain O2 sats in the 90s. T-max 99.2. Denies chest pain, palpitations or increase in shortness of breath. Renal function improving. Objective - Vital Signs Vital signs: Vital Signs Temp 98.6 F 08/18/21 04:57 Pulse 82 08/18/21 04:57 Resp 16 08/18/21 04:57 BP 158/67 08/18/21 04:57 Pulse Ox 96 08/18/21 06:13 Intake & Output 08/17/21 08/18/21 08/18/21 18:59 06:59 18:59 Intake Total 480 Output Total 600 2000 Balance -120 -1999 Weight 139 kg 145 kg Intake: Oral 480 Output: Urine 600 2000 Other: Voiding Method External Catheter Diaper External Catheter # Voids 1 # Bowel Movements 1 - Exam General: obese, sitting up in bed, NAD. Vitals reviewed Eyes: PERRL, EOMI, conjunctiva normal HENT: normocephalic, mucus membranes moist Neck: supple, no JVD Lungs: normal respiratory effort, no wheezes or rales CV: Regular rate and rhythm, no murmur. Peripheral pulses 2+. Decreasing edema hair LE Abdomen: soft, nondistended, no organomegaly, positive bowel sounds Skin: warm and dry. L 2nd toe s/p amputation, left foot dressing clean dry and intact Neuro: A&Ox3, normal mood and affect - Labs CBC & Chem 7: 08/15/21 18:38 08/18/21 05:38 Labs: Abnormal Lab Results - Last 24 Hours (Table) 08/17/21 08/17/21 08/17/21 Range/Units 12:23 17:07 21:05 BUN (7-17) mg/dL Glucose (74-99) mg/dL POC Glucose (mg/dL) 190 H 259 H 204 H (75-99) mg/dL 08/18/21 08/18/21 Range/Units 05:38 06:46 BUN 41 H (7-17) mg/dL Glucose 145 H (74-99) mg/dL POC Glucose (mg/dL) 154 H (75-99) mg/dL Microbiology - Last 24 Hours (Table) 08/15/21 20:59 Gram Stain - Preliminary Foot - Left Wound Culture - Preliminary Presumptive Staph aureus Gram Neg Bacilli Assessment and Plan Assessment: 1. Acute on chronic diastolic CHF. 2. Hypoxic respiratory failure secondary to the above. 3. Critical ischemia of LLE. Vascular following 4. Cellulitis and s/p amputation of L 2nd toe. 5. Recent NSTEMI with stenting of the LAD on 07/16/2021. 6. T2DM. Plan: Continue on current medication regime ,monitoring and symptomatic treatment.maintain IV antibiotics, local wound care . 24-hour I&O inaccurate - Strict I&O's, accurate weights. Chest x-ray ordered. Patient has been cleared by cardiology to proceed with left SFA arthrectomy/angioplasty.Close monitoring of Accu-Cheks. Diuretics as per cardiology with close monitoring of renal function, electrolytes. Dual antiplatelet therapy. The impression and plan of care has been dictated as directed. : I performed a history and examination of this patient, discussed the same with the dictator. I agree with the dictator's note ,documented as a scribe. Any additional findings or plans will be noted.
--- NOTE | 2021-08-18 14:02 | XR ---
EXAMINATION TYPE: XR chest 2V DATE OF EXAM: 08/18/2021 COMPARISON: 08/15/2021 TECHNIQUE: PA and lateral views submitted. HISTORY: Hypoxia FINDINGS: Right-sided PICC line is seen in the heart is mildly enlarged. The diffuse interstitial pattern with no pneumothorax or pleural effusion. Arthropathy of the shoulders. Atherosclerotic change aorta. IMPRESSION: 1. Correlate for interstitial pneumonitis otherwise consider CHF.
[2021-08-18] MEDS ORDERED: FUROSEMIDE 40 MG TAB PO SCH (16:00)
[2021-08-18 16:54] LABS: Glucose,Whole Blood 152 mg/dL (75-99)
[2021-08-18] MEDS: ASPIRIN 81 MG PO SCH ×2 (17:01→17:23)
[2021-08-18] MEDS: CHOLECALCIFEROL 25 MCG (1000 IU) TABLET PO SCH (17:01)
[2021-08-18] MEDS: CALCIUM CARBONATE 500 MG CHEWABLE PO SCH (17:03)
[2021-08-18 20:06] LABS: Glucose,Whole Blood 207 mg/dL (75-99)
[2021-08-18] MEDS: INSULIN DETEMIR (LEVEMIR) 100 UNIT/ML SYR SQ SCH (21:33)
[2021-08-18] MEDS: ATORVASTATIN 80 MG TAB PO SCH (21:33)
[2021-08-18] MEDS: ACETAMINOPHEN TAB 325 MG TAB PO PRN (21:36)
[2021-08-19 04:25] LABS: Glucose,Whole Blood 202 mg/dL (75-99)
[2021-08-19 05:52] LABS: Basophils % (A) 0 %; Eosinophils # (A) 0.4 k/uL (0-0.7); Eosinophils % (A) 4 %; HCT 23.1 % (34.0-46.0); HGB 7.2 gm/dL (11.4-16.0); Hypochromasia Moderate; Lymphocytes # (A) 0.9 k/uL (1.0-4.8); Lymphocytes % (A) 10 %; MCH 26.8 pg (25.0-35.0); MCV 86.5 fL (80.0-100.0); Mean Platelet Volume 7.2; Monocytes # (A) 0.6 k/uL (0-1.0); Monocytes % (A) 7 %; Neutrophils # (A) 6.5 k/uL (1.3-7.7); Neutrophils % (A) 77 %; Platelet Count 320 k/uL (150-450); Poikilocytosis Slight; RBC 2.67 m/uL (3.80-5.40); RDW 15.6 % (11.5-15.5); WBC 8.5 k/uL (3.8-10.6)
[2021-08-19 06:04] LABS: African American GFR (CKD) 61 (>60 ml/min/1.73 sqM); Anion Gap 4 mmol/L; Blood Urea Nitrogen 40 mg/dL (7-17); Calcium 10.1 mg/dL (8.4-10.2); Carbon Dioxide 28 mmol/L (22-30); Chloride 105 mmol/L (98-107); Glucose 174 mg/dL (74-99); Non-African American GFR(CKD) 53 (>60 ml/min/1.73 sqM); Sodium 137 mmol/L (137-145)
[2021-08-19 07:05] LABS: Glucose,Whole Blood 178 mg/dL (75-99)
[2021-08-19] MEDS: INSULIN ASPART (NovoLOG) 100 UNIT/ML VIAL SQ SCH ×4 (08:10→20:50)
[2021-08-19] MEDS: CEFEPIME 2 GM in SODIUM CHLORIDE 0.9% 100 ML IVPB SCH ×2 (08:10→20:49)
[2021-08-19] MEDS: LEVOTHYROXINE 50 MCG TAB PO SCH (08:17)
[2021-08-19] MEDS: FERROUS SULFATE 325 MG TAB PO SCH ×3 (08:18→16:24)
[2021-08-19] MEDS: SERTRALINE 50 MG TAB PO SCH (08:18)
[2021-08-19] MEDS: ARIPiprazole 5 MG TAB PO SCH (08:18)
[2021-08-19] MEDS: GABAPENTIN 300 MG CAP PO SCH ×3 (08:18→20:49)
[2021-08-19] MEDS: carvediloL 12.5 MG TAB PO SCH ×2 (08:18→16:24)
[2021-08-19] MEDS: ISOSORBIDE MONONITRATE ER 60 MG TAB.ER.24H PO SCH (08:18)
[2021-08-19] MEDS: FUROSEMIDE 40 MG TAB PO SCH (08:18)
[2021-08-19] MEDS: VALSARTAN 160 MG TAB PO SCH ×2 (08:18→16:29)
[2021-08-19] MEDS: LIOTHYRONINE SODIUM 5 MCG TAB PO SCH (08:19)
--- NOTE | 2021-08-19 09:12 | P.PN ---
Subjective The patient is a 71-year-old female with past medical history of coronary artery disease status post stenting in June and July 2020 and most recently in June 2021, obesity, type 2 diabetes, hypertension, ischemic cardiomyopathy EF 40-45%, hyperlipidemia, peripheral vascular disease, obstructive sleep apnea, who follows in the office with Dr. Acevedo. We have been asked to see in consultation for congestive heart failure. Patient presents to the emergency department 08/16/21 with worsening left foot ulcer infection. She states she had a visit from a wound care doctor and was told to go to the emergency department for further evaluation. She has been having worsening shortness of breath and dyspnea on exertion. Patient was recently admitted in June 2021 with an NSTEMI and underwent cardiac catheterization which revealed instent restenosis lesion with in the proximal LAD stent, 55% stenosis in the distal RCA, 55% stenosis in the midcircumflex. She underwent successful stent placement to the proximal LAD with Dr. Lynn. echocardiogram revealed EF 40-45%, mild mitral regurgitation, mild tricuspid regurgitation. After being discharged on 07/20/21, she presented to the ER on 07/24/21 with complaints of left second toe infection Patient underwent left second toe amputation on 07/25/2021. Recent cultures growing Pseudomonas and staph aureus. She also underwent left lower extremity angiogram on 07/30/2021 which revealed Mid SFA short segment total occlusion, perineal and posterior tibial occluded, anterior tibial has 2 segment high-grade stenosis. She was discharged to [facility] receiving IV antibiotics through PICC line. 08/19/21 Patient seen and examined at bedside, no acute distress. She states her shortness of breath is improved and her lower extremity edema has significantly improved. Her pain is controlled in her left foot. Over the past 24 hours patient with 1.5L urine output. Weight 144kg from 146kg on admission. WBC 8.5, hemoglobin 10.2, platelets 220, sodium 137, potassium 4.0, BUN 40, serum creatinine 1.0. Patient is currently maintained on dual antiplatelet therapy aspirin 81 mg daily and Brilinta 90 mg twice a day, atorvastatin 80 mg nightly, carvedilol 12.5 mg twice a day, IV Lasix 40 mg twice a day, Imdur 30 mg daily, valsartan 160 mg twice a day. Patient is also receiving IV antibiotics. Plan for left SFA atherectomy with balloon angioplasty and possible stenting today with Dr. Booth. PHYSICAL EXAMINATION Blood pressure 174/68, heart rate 66, afebrile, maintaining saturations on 2 L nasal cannula CONSTITUTIONAL: No apparent distress. HEENT:Neck Supple. CHEST EXAMINATION: Lungs are clear to auscultation. No chest wall tenderness is noted on palpation or with deep breathing. HEART EXAMINATION: Regular rate and rhythm. S1, S2 heard. No murmurs, gallops or rub. ABDOMEN: Soft, nontender. Positive bowel sounds. EXTREMITIES: moderate non-pitting lower extremity edema, improved significantly from admission. Left foot covered in HEIDE wrap NEUROLOGIC EXAMINATION: Patient is awake, alert and oriented x3. ASSESSMENT Left second toe diabetic foot infection status post amputation on 07/25/2021 Coronary artery disease s/p PCI Recent NSTEMI status post stenting of LAD on 07/16/2021 Ischemic cardiomyopathy EF 40-45% Acute on chronic systolic heart failure Type 2 diabetes Hypertension Obstructive sleep apnea Diabetic neuropathy Acute on chronic kidney disease PLAN -Start hydralazine 25mg BID, patient's allergy she states she may of had diarrhea but no acute/anaphylaxis allergy to hydralazine. -Plan for left SFA atherectomy with balloon angioplasty and possible stenting today with Dr. Booth. -Continue Lasix PO 40mg BID, Imdur 30mg daily, carvedilol, statin and valsartan -Continue dual antiplatelet therapy with aspirin and Brilinta -Monitor renal function and electrolytes -Further recommendations based on clinical course Nurse Practitioner note has been reviewed, I agree with a documented findings and plan of care. Patient was seen and examined. Objective - Vital Signs Vital signs: Vital Signs Temp 98.5 F 08/19/21 04:22 Pulse 66 08/19/21 04:22 Resp 18 08/19/21 04:22 BP 174/68 08/19/21 04:22 Pulse Ox 97 08/19/21 04:22 Intake & Output 08/18/21 08/19/21 08/19/21 18:59 06:59 18:59 Output Total 1500 Balance -1500 Weight 144.5 kg Output: Urine 1500 Other: Voiding Method Diaper Diaper External Catheter External Catheter - Labs CBC & Chem 7: 08/19/21 04:46 08/19/21 04:46 Labs: Abnormal Lab Results - Last 24 Hours (Table) 08/18/21 08/18/21 08/18/21 Range/Units 12:04 16:53 20:05 RBC (3.80-5.40) m/uL Hgb (11.4-16.0) gm/dL Hct (34.0-46.0) % RDW (11.5-15.5) % Lymphocytes # (1.0-4.8) k/uL BUN (7-17) mg/dL Creatinine (0.52-1.04) mg/dL Glucose (74-99) mg/dL POC Glucose (mg/dL) 158 H 152 H 207 H (75-99) mg/dL 08/19/21 08/19/21 08/19/21 Range/Units 04:24 04:46 04:46 RBC 2.67 L (3.80-5.40) m/uL Hgb 7.2 L (11.4-16.0) gm/dL Hct 23.1 L (34.0-46.0) % RDW 15.6 H (11.5-15.5) % Lymphocytes # 0.9 L (1.0-4.8) k/uL BUN 40 H (7-17) mg/dL Creatinine 1.05 H (0.52-1.04) mg/dL Glucose 174 H (74-99) mg/dL POC Glucose (mg/dL) 202 H (75-99) mg/dL 08/19/21 Range/Units 07:04 RBC (3.80-5.40) m/uL Hgb (11.4-16.0) gm/dL Hct (34.0-46.0) % RDW (11.5-15.5) % Lymphocytes # (1.0-4.8) k/uL BUN (7-17) mg/dL Creatinine (0.52-1.04) mg/dL Glucose (74-99) mg/dL POC Glucose (mg/dL) 178 H (75-99) mg/dL Microbiology - Last 24 Hours (Table) 08/15/21 20:59 Gram Stain - Final Foot - Left Wound Culture - Final Staphylococcus aureus Pseudomonas aeruginosa
[2021-08-19] MEDS ORDERED: diphenhydrAMINE 50 MG/ML 1 ML VIAL ONE (10:48)
[2021-08-19] MEDS ORDERED: methylPREDNISolone SOD SUCCI 125 MG/2 ML VIAL ONE (10:48)
[2021-08-19] MEDS ORDERED: LIDOCAINE 1% INJ 10MG/ML (20 ML MDV) ONE (10:48)
[2021-08-19] MEDS ORDERED: fentaNYL (PF) 50 MCG/ML 2 ML AMP ONE (10:48)
[2021-08-19] MEDS ORDERED: HEPARIN SODIUM 1,000 UN/ML (10ML VL) ONE (10:48)
[2021-08-19] MEDS ORDERED: diphenhydrAMINE 50 MG/ML 1 ML VIAL IVP ONE (10:55)
[2021-08-19] MEDS ORDERED: methylPREDNISolone SOD SUCCI 125 MG/2 ML VIAL IVP ONE (10:55)
[2021-08-19] MEDS ORDERED: LIDOCAINE 1% INJ 10MG/ML (20 ML MDV) SQ ONE (11:00)
[2021-08-19] MEDS: fentaNYL (PF) 50 MCG/ML 2 ML AMP IV ONE ×2 (11:05→11:35)
[2021-08-19] MEDS ORDERED: IV FLUID CONTINUATION 200 ML IV ONE (11:19)
[2021-08-19 11:33] VITALS: BMI 51.4
[2021-08-19] MEDS ORDERED: IOPAMIDOL-250 100ML BTL INTRAARTER ONE (12:39)
[2021-08-19] MEDS: TICAGRELOR 90 MG TAB PO SCH ×2 (12:51→16:24)
[2021-08-19] MEDS: COLLAGENASE 250 UNIT/GM OINTMENT 30 GM TUBE TOPICAL SCH (12:51)
[2021-08-19] MEDS: hydrALAZINE HCL 25 MG TAB PO SCH ×2 (13:10→20:49)
--- NOTE | 2021-08-19 13:15 | IR ---
Fluoroscopy HISTORY: Peripheral vascular disease 24.6 minutes fluoroscopy time supplied to the referring clinician. 44 intraoperative C-arm images do cument the procedure. See dictated report from referring clinician.
--- NOTE | 2021-08-19 14:32 | P.PN ---
Subjective Progress Note Date: 08/19/21 Karly Goyal is a 71 yo F with PMH of CAD s/p stenting last month, PAD, T2DM, HTN, chronic diastolic CHF who presented to the ED on the recommendation of her vascular surgeon due to continued L toe injection and concern for fluid overload. She was most recently admitted approximately 3 weeks ago at which time pt was noted with gangrene of her L 2nd toe and underwent amputation with Dr. Ansari. She was subsequently discharged to [facility] and has continued on cefepime without significant improvement in her wound. She has not been able to bear any weight on the foot. She denies chest pain or shortness of breath. On presentation, vitals stable, WBC normal, Hgb 8.8, BNP 4370, CRP 1.3. XR L foot no evidence of osteomyelitis. 08/17/2021 Continues on dual antiplatelet therapy with aspirin and Brilenta, re cent NSTEMI with stenting of the LAD on 07/16/2021. Appears to be diuresing well on Lasix IV push, edema improving. Renal function improving. Evaluated by cardiology and vascular surgery with recommendations noted and appreciated. Blood sugars better controlled today. Maintained on cefepime. 08/18/2021 oxygen requirements increased up to 3 L to maintain O2 sats in the 90s. T-max 99.2. Denies chest pain, palpitations or increase in shortness of breath. Renal function improving. 08/19/2021 scheduled for left SFA arthrectomy/angioplasty this morning. Diuresing well with continued improvement in lower extremity edema. Chest x-ray noted. Maintained on dual platelet therapy, IV antibiotics. Denies chest pain, palpitations or increasing shortness of breath. Hemoglobin 7.2, 1 unit of packed RBCs ordered prior to surgery. Afebrile, normal WBC. Hypertensive, creatinine 1.05, hydralazine initiated. Objective - Vital Signs Vital signs: Vital Signs Temp 97.9 F 08/19/21 13:43 Pulse 74 08/19/21 13:43 Resp 16 08/19/21 13:43 BP 160/68 08/19/21 13:43 Pulse Ox 99 08/19/21 13:43 Intake & Output 08/18/21 08/19/21 08/19/21 18:59 06:59 18:59 Intake Total 100 Output Total 1500 Balance -1500 100 Weight 144.5 kg 144.5 kg Intake: IV 100 Blood Product 0 Rc Pheresis 2 As3 Unit 0 [id number] Output: Urine 1500 Other: Voiding Method Diaper Diaper Diaper External Catheter External Catheter External Catheter - Exam General: obese, sitting up in bed, NAD. Vitals reviewed Eyes: PERRL, EOMI, conjunctiva normal HENT: normocephalic, mucus membranes dry Neck: supple, no JVD Lungs: normal respiratory effort, no wheezes or rales CV: Regular rate and rhythm, no murmur. Peripheral pulses 2+. Decreasing edema hair LE Abdomen: soft, nondistended, no organomegaly, positive bowel sounds Skin: warm and dry. L 2nd toe s/p amputation, left foot dressing clean dry and intact Neuro: A&Ox3, normal mood and affect - Labs CBC & Chem 7: 08/19/21 04:46 08/19/21 04:46 Labs: Abnormal Lab Results - Last 24 Hours (Table) 08/18/21 08/18/21 08/19/21 Range/Units 16:53 20:05 04:24 RBC (3.80-5.40) m/uL Hgb (11.4-16.0) gm/dL Hct (34.0-46.0) % RDW (11.5-15.5) % Lymphocytes # (1.0-4.8) k/uL BUN (7-17) mg/dL Creatinine (0.52-1.04) mg/dL Glucose (74-99) mg/dL POC Glucose (mg/dL) 152 H 207 H 202 H (75-99) mg/dL Crossmatch 08/19/21 08/19/21 08/19/21 Range/Units 04:46 04:46 07:04 RBC 2.67 L (3.80-5.40) m/uL Hgb 7.2 L (11.4-16.0) gm/dL Hct 23.1 L (34.0-46.0) % RDW 15.6 H (11.5-15.5) % Lymphocytes # 0.9 L (1.0-4.8) k/uL BUN 40 H (7-17) mg/dL Creatinine 1.05 H (0.52-1.04) mg/dL Glucose 174 H (74-99) mg/dL POC Glucose (mg/dL) 178 H (75-99) mg/dL Crossmatch 08/19/21 Range/Units 10:10 RBC (3.80-5.40) m/uL Hgb (11.4-16.0) gm/dL Hct (34.0-46.0) % RDW (11.5-15.5) % Lymphocytes # (1.0-4.8) k/uL BUN (7-17) mg/dL Creatinine (0.52-1.04) mg/dL Glucose (74-99) mg/dL POC Glucose (mg/dL) (75-99) mg/dL Crossmatch See Detail Microbiology - Last 24 Hours (Table) 08/15/21 20:59 Gram Stain - Final Foot - Left Wound Culture - Final Staphylococcus aureus Pseudomonas aeruginosa Assessment and Plan Assessment: 1. Acute on chronic diastolic CHF. 2. Hypoxic respiratory failure secondary to the above. 3. Critical ischemia of LLE. Vascular following 4. Cellulitis and s/p amputation of L 2nd toe. 5. Recent NSTEMI with stenting of the LAD on 07/16/2021. 6. T2DM. Plan: Continue on current medication regime ,monitoring and symptomatic tr eatment.maintain IV antibiotics, local wound care . Dual antiplatelet therapy. Pending left SFA arthrectomy/angioplasty. Tight control of that sugars, with close monitoring of Accu-Cheks. Diuretics as per cardiology. Close monitoring of renal function, electrolytes. The impression and plan of care has been dictated as directed. : I performed a history and examination of this patient, discussed the same with the dictator. I agree with the dictator's note ,documented as a scribe. Any additional findings or plans will be noted.
[2021-08-19] MEDS: CHOLECALCIFEROL 25 MCG (1000 IU) TABLET PO SCH (16:24)
[2021-08-19] MEDS: ASPIRIN 81 MG PO SCH (16:24)
[2021-08-19] MEDS: CALCIUM CARBONATE 500 MG CHEWABLE PO SCH (16:24)
[2021-08-19 16:42] LABS: Glucose,Whole Blood 193 mg/dL (75-99)
--- NOTE | 2021-08-19 18:34 | P.OP ---
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 Ultrasound guided access of right common femoral artery 2. Percutaneous transluminal balloon angioplasty of the left anterior tibial artery, peroneal artery. 3. Percutaneous directional atherectomy with Hawk one of the left superficial femoral artery 4. Percutaneous transluminal balloon angioplasty of the left superficial femoral artery with drug-eluting balloon 5. Selective left lower extremity iliofemoral, femoral popliteal and tibial angiogram, third order 6. Percutaneous closure of the right common femoral artery with Vascade device Anesthesia: local Surgeon: Rahul Booth Estimated Blood Loss (ml): 10 Pathology: none sent Condition: stable Disposition: PACU Indications for Procedure: 71-year-old female who originally presented to the hospital secondary to left lower extremity gangrene involving foot and toes which Dr. Ansari amputated at that time. She then underwent angiogram which demonstrated occlusion of the superficial femoral artery at the midportion of the thigh as well as posterior tibial artery occlusion and multiple areas of stenosis involving the anterior tibial and peroneal artery. She presents today for revascularization of the left lower extremity. She did have a history of chest pain and revascularization of her coronary arteries which she is currently on Brilinta. She was seen by cardiology and cleared for left lower extremity revascularization and presents today for such procedure. Description of Procedure: After written and informed consent was obtained for the patient and all risks benefits and competitions were described the patient is brought to the Custom Protection Officer and laid in a supine position. The area of the groins were prepped and draped in usual sterile fashion. Timeout was performed in normal fashion antibiotics were administered prior to accessed. Utilizing ultrasound guidance the right common femoral artery was visualized and shown to be patent without any significant calcific disease. Under ultrasound guidance the artery was accessed with a multipurpose needle and guidewire was placed. Utilizing Seldinger technique a 6-Barbadian sheath was placed. 035 Glidewire was then placed into the sheath into the aorta followed by a rim catheter and the left iliac system was accessed with a wire. Wire was then exchanged for an 035 Glidewire advantage and the rim catheter was removed. A 6-Barbadian sheath was removed and exchanged for a 6-Barbadian 45 cm raabe sheath. Patient was administered heparin and followed with ACTs for appropriate heparinization. Selective angiogram was then obtained of the left iliofemoral and femoropopliteal segments demonstrating o cclusion of the left superficial femoral artery. 035 Glidewire was then utilized with a quick cross catheter and the lesion was crossed. Once across the lesion distal selective angiogram was obtained demonstrating good intraluminal access. The distal tibial vessels were then visualized with an angiogram through the quick cross catheter once again demonstrating occlusion of the posterior tibial artery as well as significant stenosis greater than 80% at the takeoff of the anterior tibial artery as well as slightly distal to the takeoff. The peroneal vessels were also severely diseased and stenotic throughout. 014 Glidewire advantage was then utilized and placed across the lesion in the peroneal artery down to the ankle. Utilizing a chocolate balloon 2.5 mm x 120 mm a balloon angioplasty was then performed of the peroneal vessel from the takeoff down to the ankle. Nitro was then administered to the vessel. Angiogram was then obtained of the peroneal artery demonstrating complete r esolution of the stenosis with brisk flow. Quick cross catheter was then withdrawn into the popliteal artery and access to the anterior tibial artery was then obtained with an 035 Glidewire. Once across the quick cross was placed into the distal anterior tibial artery and angiogram was obtained demonstrate a good intraluminal access. 014 wire was then placed in quick cross was removed. A 3.5 x 120 mm chocolate balloon was then utilized and balloon angioplasty was performed of the anterior tibial artery. Once completed angiogram was obtained demonstrating brisk flow through the anterior tibial artery and peroneal vessel. Through the quick cross A 5 Barbadian spider filter was then placed. Angiogram was then obtained demonstrating the area of concern in the superficial femoral artery. A Hawk one atherectomy device was then placed and multiple passes were performed at the areas of concern. Once completed a 5 x 150 mm impact balloon was placed and balloon angioplasty was performed. Once completed all guidewires and filter was removed angiogram was obtained of the femoral popliteal and distal tibial vessels which demonstrated 95% resolution of the SFA lesion with brisk flow through the superficial femoral artery and two-vessel runoff to the ankle with filling in the foot from the anterior tibial artery. The sheath was then withdrawn over a wire and removed and replaced with a short 6-Barbadian sheath. A vascade closure device was then placed in normal fashion. Once completed pressure was held for hemostasis. Patient tolerated procedure well had palpable DP pulse at the conclusion of the procedure. She was then sent to PACU for recovery.
[2021-08-19 19:40] LABS: Ferritin 158.2 ng/mL (10.0-291.0)
[2021-08-19 20:23] LABS: Glucose,Whole Blood 410 mg/dL (75-99)
[2021-08-19] MEDS: ATORVASTATIN 80 MG TAB PO SCH (20:49)
[2021-08-19] MEDS: INSULIN DETEMIR (LEVEMIR) 100 UNIT/ML SYR SQ SCH (20:50)
[2021-08-19 21:02] LABS: % Iron Saturation 14.5 (12.00-45.00)
[2021-08-20] MEDS: ACETAMINOPHEN TAB 325 MG TAB PO PRN (01:15)
[2021-08-20] MEDS: COLLAGENASE 250 UNIT/GM OINTMENT 30 GM TUBE TOPICAL SCH (01:17)
[2021-08-20 06:19] LABS: Glucose,Whole Blood 265 mg/dL (75-99)
[2021-08-20] MEDS: INSULIN ASPART (NovoLOG) 100 UNIT/ML VIAL SQ SCH ×4 (06:26→20:08)
[2021-08-20] MEDS: CEFEPIME 2 GM in SODIUM CHLORIDE 0.9% 100 ML IVPB SCH ×2 (09:02→20:06)
[2021-08-20] MEDS: ISOSORBIDE MONONITRATE ER 60 MG TAB.ER.24H PO SCH (09:03)
[2021-08-20] MEDS: FUROSEMIDE 40 MG TAB PO SCH (09:03)
[2021-08-20] MEDS: hydrALAZINE HCL 25 MG TAB PO SCH ×2 (09:03→20:07)
[2021-08-20] MEDS: SERTRALINE 50 MG TAB PO SCH (09:03)
[2021-08-20] MEDS: FERROUS SULFATE 325 MG TAB PO SCH ×3 (09:03→16:57)
[2021-08-20] MEDS: LEVOTHYROXINE 50 MCG TAB PO SCH (09:03)
[2021-08-20] MEDS: GABAPENTIN 300 MG CAP PO SCH ×3 (09:03→20:07)
[2021-08-20] MEDS: TICAGRELOR 90 MG TAB PO SCH ×2 (09:03→17:00)
[2021-08-20] MEDS: carvediloL 12.5 MG TAB PO SCH ×2 (09:04→16:57)
[2021-08-20] MEDS: VALSARTAN 160 MG TAB PO SCH ×2 (09:04→16:58)
[2021-08-20] MEDS: ARIPiprazole 5 MG TAB PO SCH (09:04)
[2021-08-20] MEDS: LIOTHYRONINE SODIUM 5 MCG TAB PO SCH (09:04)
[2021-08-20 09:30] LABS: Calcium 9.9 mg/dL (8.4-10.2); Potassium 5.3 mmol/L (3.5-5.1)
[2021-08-20 11:47] LABS: Glucose,Whole Blood 309 mg/dL (75-99)
--- NOTE | 2021-08-20 13:40 | P.PN ---
Subjective Progress Note Date: 08/20/21 The patient is a 71-year-old female with past medical history of coronary artery disease status post stenting in June and July 2020 and most recently in June 2021, obesity, type 2 diabetes, hypertension, ischemic cardiomyopathy EF 40-45%, hyperlipidemia, peripheral vascular disease, obstructive sleep apnea, who follows in the office with Dr. Acevedo. We have been asked to see in consultation for congestive heart failure. Patient presents to the emergency department 08/16/21 with worsening left foot ulcer infection. She states she had a visit from a wound care doctor and was told to go to the emergency department for further evaluation. She has been having worsening shortness of breath and d yspnea on exertion. Patient was recently admitted in June 2021 with an NSTEMI and underwent card iac catheterization which revealed instent restenosis lesion with in the proximal LAD stent, 55% stenosis in the distal RCA, 55% stenosis in the midcircumflex. She underwent successful stent placement to the proximal LAD with Dr. Lynn. echocardiogram revealed EF 40-45%, mild mitral regurgitation, mild tricuspid regurgitation. After being discharged on 07/20/21, she presented to the ER on 07/24/21 with complaints of left second toe infection Patient underwent left second toe amputation on 07/25/2021. Recent cultures growing Pseudomonas and staph aureus. She also underwent left lower extremity angiogram on 07/30/2021 which revealed Mid SFA short segment total occlusion, perineal and posterior tibial occluded, anterior tibial has 2 segment high-grade stenosis. She was discharged to [facility] receiving IV antibiotics through PICC line. 08/19/21 Patient seen and examined at bedside, no acute distress. She states her shortness of breath is improved and her lower extremity edema has significantly improved. Her pain is controlled in her left foot. Over the past 24 hours patient with 1.5L urine output. Weight 144kg from 146kg on admission. WBC 8.5, hemoglobin 10.2, platelets 220, sodium 137, potassium 4.0, BUN 40, serum creatinine 1.0. Patient is currently maintained on dual antiplatelet therapy aspirin 81 mg daily and Brilinta 90 mg twice a day, atorvastatin 80 mg nightly, carvedilol 12.5 mg twice a day, IV Lasix 40 mg twice a day, Imdur 30 mg daily, valsartan 160 mg twice a day. Patient is also receiving IV antibiotics. Plan for left SFA atherectomy with balloon angioplasty and possible stenting today with Dr. Booth. 08/20: Yesterday patient underwent percutaneous transluminal balloon angioplasty of the left anterior tibial artery, peroneal artery, atherectomy SFA, percutaneous transluminal balloon angioplasty of the left SFA with drug-eluting balloon with Dr. Booth. Patient denies chest pain, shortness of breath. Patient had no signs of ALLERGIC reaction to hydralazine. PHYSICAL EXAMINATION Blood pressure 138/53, heart rate 77, afebrile, maintaining saturations on 2 L nasal cannula CONSTITUTIONAL: No apparent distress. HEENT:Neck Supple. CHEST EXAMINATION: Lungs are clear to auscultation. No chest wall tenderness is noted on palpation or with deep breathing. HEART EXAMINATION: Regular rate and rhythm. S1, S2 heard. No murmurs, gallops or rub. ABDOMEN: Soft, nontender. Positive bowel sounds. EXTREMITIES: decreased non-pitting lower extremity edema, improved significantly from admission. NEUROLOGIC EXAMINATION: Patient is awake, alert and oriented x3. ASSESSMENT Left second toe diabetic foot infection status post amputation on 07/25/2021 Coronary artery disease s/p PCI Recent NSTEMI status post stenting of LAD on 07/16/2021 Ischemic cardiomyopathy EF 40-45% Acute on chronic systolic heart failure Type 2 diabetes Hypertension Obstructive sleep apnea Diabetic neuropathy Acute on chronic kidney disease PLAN -Continue hydralazine 25mg BID, no allergy symptoms. -S/p left SFA atherectomy with balloon angioplasty with Dr. Booth. -Continue Lasix PO 40mg BID, Imdur 60mg daily, carvedilol, statin and valsartan -Continue dual antiplatelet therapy with aspirin and Brilinta -Monitor renal function and electrolytes -Further recommendations based on clinical course Nurse Practitioner note has been reviewed, I agree with a documented findings and plan of care. Patient was seen and examined. Objective - Vital Signs Vital signs: Vital Signs Temp 98.2 F 08/20/21 09:10 Pulse 78 08/20/21 09:10 Resp 16 08/20/21 09:10 BP 150/65 08/20/21 09:10 Pulse Ox 98 08/20/21 09:10 Intake & Output 08/19/21 08/20/21 08/20/21 18:59 06:59 18:59 Intake Total 378 480 Output Total 600 460 Balance -222 -460 480 Weight 144.5 kg 144 kg Intake: IV 100 Oral 480 Blood Product 278 Rc Pheresis 2 As3 Unit 278 [id number] Output: Urine 600 460 Other: Voiding Method Diaper Diaper Diaper External Catheter External Catheter External Catheter # Voids 1 - Labs CBC & Chem 7: 08/19/21 04:46 08/20/21 07:50 Labs: Abnormal Lab Results - Last 24 Hours (Table) 08/19/21 08/19/21 08/19/21 Range/Units 10:10 10:10 16:39 Sodium (137-145) mmol/L Potassium (3.5-5.1) mmol/L BUN (7-17) mg/dL Creatinine (0.52-1.04) mg/dL Glucose (74-99) mg/dL POC Glucose (mg/dL) 193 H (75-99) mg/dL Iron 29 L (50-170) ug/dL TIBC 200 L (228-460) ug/dL Crossmatch See Detail 08/19/21 08/20/21 08/20/21 Range/Units 20:22 06:17 07:50 Sodium 136 L (137-145) mmol/L Potassium 5.3 H (3.5-5.1) mmol/L BUN 53 H (7-17) mg/dL Creatinine 1.32 H (0.52-1.04) mg/dL Glucose 272 H (74-99) mg/dL POC Glucose (mg/dL) 410 H 265 H (75-99) mg/dL Iron (50-170) ug/dL TIBC (228-460) ug/dL Crossmatch
--- NOTE | 2021-08-20 15:24 | P.PN ---
Subjective Progress Note Date: 08/20/21 Postop day #1 status post left lower extremity atherectomy. Patient indicates her left leg feels well and offers no complaints. Her only complaint is that of some "burning/pulling" in her left inguinal area when she uses her left arm to reach for things. She indicates that her left foot/leg feels markedly improved. Objective - Vital Signs Vital signs: Vital Signs Temp 97.7 F 08/20/21 12:10 Pulse 77 08/20/21 12:10 Resp 16 08/20/21 14:01 BP 138/53 08/20/21 12:10 Pulse Ox 97 08/20/21 12:10 Intake & Output 08/19/21 08/20/21 08/20/21 18:59 06:59 18:59 Intake Total 378 660 Output Total 600 460 Balance -222 -460 660 Weight 144.5 kg 144 kg Intake: IV 100 Oral 660 Blood Product 278 Rc Pheresis 2 As3 Unit 278 [id number] Output: Urine 600 460 Other: Voiding Method Diaper Diaper Diaper External Catheter External Catheter External Catheter # Voids 1 - Exam Puncture wound is clean, dry and is otherwise unremarkable. The left inguinal area demonstrates findings consistent with fungal infection. This is most likely due to her abdominal pannus chronically laying on top of her anterior thigh area keeping the area dark and moist. Legs do not demonstrate any significant edema. Toes are movable and nontender. - Constitutional General appearance: Present: morbidly obese - Labs CBC & Chem 7: 08/19/21 04:46 08/20/21 07:50 Labs: Abnormal Lab Results - Last 24 Hours (Table) 08/19/21 08/19/21 08/19/21 Range/Units 10:10 10:10 16:39 Sodium (137-145) mmol/L Potassium (3.5-5.1) mmol/L BUN (7-17) mg/dL Creatinine (0.52-1.04) mg/dL Glucose (74-99) mg/dL POC Glucose (mg/dL) 193 H (75-99) mg/dL Iron 29 L (50-170) ug/dL TIBC 200 L (228-460) ug/dL Crossmatch See Detail 08/19/21 08/20/21 08/20/21 Range/Units 20:22 06:17 07:50 Sodium 136 L (137-145) mmol/L Potassium 5.3 H (3.5-5.1) mmol/L BUN 53 H (7-17) mg/dL Creatinine 1.32 H (0.52-1.04) mg/dL Glucose 272 H (74-99) mg/dL POC Glucose (mg/dL) 410 H 265 H (75-99) mg/dL Iron (50-170) ug/dL TIBC (228-460) ug/dL Crossmatch 08/20/21 Range/Units 11:45 Sodium (137-145) mmol/L Potassium (3.5-5.1) mmol/L BUN (7-17) mg/dL Creatinine (0.52-1.04) mg/dL Glucose (74-99) mg/dL POC Glucose (mg/dL) 309 H (75-99) mg/dL Iron (50-170) ug/dL TIBC (228-460) ug/dL Crossmatch Assessment and Plan (1) Diabetic foot ulcer Current Visit: Yes Status: Acute Code(s): E11.621 - TYPE 2 DIABETES MELLITUS WITH FOOT ULCER; L97.509 - NON-PRESSURE CHRONIC ULCER OTH PRT UNSP FOOT W UNSP SEVERITY SNOMED Code(s): 945307030 (2) Tinea Current Visit: Yes Status: Acute Priority: Low Onset Date: ~08/20/21 Code(s): B35.9 - DERMATOPHYTOSIS, UNSPECIFIED SNOMED Code(s): 60195415 Plan: #1: Nystatin powder to the left inguinal area #2: Hand towel to the left inguinal area in an effort to keep moisture under control. #3: Patient is stable from a atherectomy standpoint. Full care return to Dr. Ansari for wound care etc. Time with Patient: Less than 30
[2021-08-20 16:41] LABS: Glucose,Whole Blood 270 mg/dL (75-99)
[2021-08-20] MEDS: CALCIUM CARBONATE 500 MG CHEWABLE PO SCH (16:57)
[2021-08-20] MEDS: ASPIRIN 81 MG PO SCH (16:57)
[2021-08-20] MEDS: CHOLECALCIFEROL 25 MCG (1000 IU) TABLET PO SCH (16:57)
--- NOTE | 2021-08-20 19:31 | PN ---
PROGRESS NOTE DATE OF SERVICE: 08/20/2021 This 71-year-old woman who was admitted with acute on chronic CHF is being closely monitored. Patient also had hypoxic respiratory failure. Patient also had cellulitis. No chest pain. No palpitations. No fever. PHYSICAL EXAMINATION: Alert and oriented x3. Pulse is 77, blood pressure 132/53, respiration 18, temperature 97.7, pulse ox 97% on 2 L. HEENT: Conjunctivae normal. NECK: No jugular venous distention. CARDIOVASCULAR: S1, S2 muffled. RESPIRATION: Breath sounds diminished at the bases. A few scattered rhonchi. ABDOMEN: Soft. NERVOUS SYSTEM: No focal deficit. LABS: Sodium 134, potassium 5.3. ASSESSMENT: 1. MSSA and resistant Pseudomonas. 2. Congestive heart failure, acute exacerbation, acute on chronic diastolic congestive heart failure with acute hypoxic respiratory failure. 3. Critical ischemia of the left lower leg. 4. Cellulitis. 5. Recent eje-DM-xltjvsq-elevation myocardial infarction. 6. Diabetes mellitus, type 2. 7. Anemia. 8. Hypokalemia. 9. Hyperkalemia. 10.Renal failure. RECOMMENDATIONS AND DISCUSSION: I recommend to continue current medications, continue with symptomatic treatment. Avoid nephrotoxic medications. Repeat labs in the morning. Continue with cefepime. Guarded prognosis. Further recommendations to follow. Cultures are showing Staph aureus and Pseudomonas, and Staph aureus is MSSA and Pseudomonas is resistant. MMODL / IJN: [id number] /
[2021-08-20] MEDS: ALBUTEROL NEBULIZED 2.5 MG/3 ML INHALATION PRN (19:58)
[2021-08-20 20:05] LABS: Glucose,Whole Blood 255 mg/dL (75-99)
[2021-08-20] MEDS: ATORVASTATIN 80 MG TAB PO SCH (20:06)
[2021-08-20] MEDS: ALPRAZolam 0.25 MG TAB PO PRN (20:07)
[2021-08-20] MEDS: INSULIN DETEMIR (LEVEMIR) 100 UNIT/ML SYR SQ SCH (20:08)
[2021-08-20] MEDS: NYSTATIN 100,000 UNIT/GM POWD 15 GM TOPICAL SCH (22:22)
[2021-08-21 06:13] LABS: Glucose,Whole Blood 85 mg/dL (75-99)
[2021-08-21] MEDS: INSULIN ASPART (NovoLOG) 100 UNIT/ML VIAL SQ SCH ×4 (06:17→21:14)
[2021-08-21] MEDS: DOCUSATE 100 MG CAP PO PRN (06:36)
[2021-08-21] MEDS: FUROSEMIDE 40 MG TAB PO SCH (08:38)
[2021-08-21] MEDS: GABAPENTIN 300 MG CAP PO SCH ×3 (08:38→21:15)
[2021-08-21] MEDS: hydrALAZINE HCL 25 MG TAB PO SCH ×2 (08:38→19:51)
[2021-08-21] MEDS: ISOSORBIDE MONONITRATE ER 60 MG TAB.ER.24H PO SCH (08:38)
[2021-08-21] MEDS: carvediloL 12.5 MG TAB PO SCH ×2 (08:38→16:48)
[2021-08-21] MEDS: LEVOTHYROXINE 50 MCG TAB PO SCH (08:38)
[2021-08-21] MEDS: NYSTATIN 100,000 UNIT/GM POWD 15 GM TOPICAL SCH ×2 (08:38→19:55)
[2021-08-21] MEDS: FERROUS SULFATE 325 MG TAB PO SCH ×3 (08:38→16:48)
[2021-08-21] MEDS: SERTRALINE 50 MG TAB PO SCH (08:38)
[2021-08-21] MEDS: TICAGRELOR 90 MG TAB PO SCH ×2 (08:38→16:50)
[2021-08-21] MEDS: LIOTHYRONINE SODIUM 5 MCG TAB PO SCH (08:39)
[2021-08-21] MEDS: CEFEPIME 2 GM in SODIUM CHLORIDE 0.9% 100 ML IVPB SCH ×2 (08:39→19:52)
[2021-08-21] MEDS: ARIPiprazole 5 MG TAB PO SCH (08:39)
[2021-08-21] MEDS: VALSARTAN 160 MG TAB PO SCH ×2 (08:39→17:15)
[2021-08-21] MEDS: ALPRAZolam 0.25 MG TAB PO PRN (08:49)
[2021-08-21] MEDS: ACETAMINOPHEN TAB 325 MG TAB PO PRN ×2 (08:49→19:51)
[2021-08-21 11:48] LABS: Glucose,Whole Blood 152 mg/dL (75-99)
[2021-08-21] MEDS: COLLAGENASE 250 UNIT/GM OINTMENT 30 GM TUBE TOPICAL SCH ×2 (11:48→19:52)
[2021-08-21 16:13] LABS: Glucose,Whole Blood 148 mg/dL (75-99)
[2021-08-21] MEDS: CALCIUM CARBONATE 500 MG CHEWABLE PO SCH (16:48)
[2021-08-21] MEDS: ASPIRIN 81 MG PO SCH (16:48)
[2021-08-21] MEDS: CHOLECALCIFEROL 25 MCG (1000 IU) TABLET PO SCH (16:48)
[2021-08-21] MEDS: ATORVASTATIN 80 MG TAB PO SCH (19:51)
[2021-08-21 20:25] LABS: Glucose,Whole Blood 165 mg/dL (75-99)
--- NOTE | 2021-08-21 20:30 | PN ---
PROGRESS NOTE DATE OF SERVICE: 08/21/2021 This 71-year-old woman was admitted with CHF acute exacerbation, also had some critical ischemia also. No chest pain. No palpitations. No fever. Vascular surgery is following the patient closely. PHYSICAL EXAMINATION: Alert and oriented x3. Pulse 72, blood pressure 140/60, respiration 18, temperature 97.2, pulse ox 97% on 2 L HEENT: Conjunctivae normal. Oral mucosa moist. NECK: No jugular venous distention. No lymph node enlargement. CARDIOVASCULAR: S1, S2, muffled. No S3, no S4, RESPIRATORY: Diminished breath sounds at the bases. ABDOMEN: Soft, nontender. LEGS: No edema, no swelling. NERVOUS SYSTEM: No focal deficits. LABS: Noted. Hemoglobin 7.2, sodium 130, potassium 5.3. ASSESSMENT: 1. Congestive heart failure acute exacerbation, acute on chronic diastolic CHF with acute hypoxic respiratory failure. 2. MSSA and Pseudomonas from the cultures with cellulitis. 3. Critical limb ischemia of the left lower leg. 4. Recent eeg-FD-vlfvwgo-elevation myocardial infarction. 5. Diabetes mellitus type 2. 6. Anemia. 7. Hypokalemia. 8. History of renal failure. RECOMMENDATIONS AND DISCUSSION: Recommend to continue current medications, continue symptomatic treatment. Repeat labs. Otherwise, continue the rest of medications. Closely follow with Infectious Disease and Vascular Surgery and Dr. Galeano will follow. MMODL / NBAN: [id number] /
[2021-08-21] MEDS: INSULIN DETEMIR (LEVEMIR) 100 UNIT/ML SYR SQ SCH (21:14)
[2021-08-22] MEDS: ACETAMINOPHEN TAB 325 MG TAB PO PRN (03:10)
[2021-08-22 06:19] LABS: Glucose,Whole Blood 133 mg/dL (75-99)
[2021-08-22] MEDS: INSULIN ASPART (NovoLOG) 100 UNIT/ML VIAL SQ SCH ×4 (06:20→20:19)
[2021-08-22 07:50] LABS: Anisocytosis Slight; Basophils % (A) 0 %; Eosinophils # (A) 0.6 k/uL (0-0.7); Eosinophils % (A) 6 %; HCT 23.8 % (34.0-46.0); HGB 7.7 gm/dL (11.4-16.0); Lymphocytes # (A) 0.9 k/uL (1.0-4.8); Lymphocytes % (A) 11 %; MCH 27.2 pg (25.0-35.0); MCHC 32.5 g/dL (31.0-37.0); MCV 83.7 fL (80.0-100.0); Mean Platelet Volume 7.4; Monocytes # (A) 0.6 k/uL (0-1.0); Monocytes % (A) 7 %; Neutrophils # (A) 6.6 k/uL (1.3-7.7); Neutrophils % (A) 75 %; Platelet Count 317 k/uL (150-450); Poikilocytosis Slight; RBC 2.85 m/uL (3.80-5.40); RDW 16.1 % (11.5-15.5); WBC 8.9 k/uL (3.8-10.6)
[2021-08-22 08:03] LABS: Calcium 10.1 mg/dL (8.4-10.2); Potassium 5.7 mmol/L (3.5-5.1)
--- NOTE | 2021-08-22 08:47 | P.CONS ---
History of Present Illness - Reason for Consult Consult date: 08/21/21 resistant pseudomonas Requesting physician: Monty Samson - Chief Complaint left foot non healing wound x week - History of Present Illness History of present illness : Patient is 71-year-old female with a past medical history significant for left second toe gangrene status post left second toe amputation by Dr. Soler local cultures at that time were positive for anaerobic gram-negative bacilli prior culture with Pseudomonas and staph aureus patient was subsequently sent to the snf for 2-week course of cefepime and Flagyl patient did not follow-up with me in the outpatient setting , patient was brought to the hospital about a week ago with concern for discoloration of the plantar aspect of the left foot and nonhealing of the wound at the patient started having a increased pain to the left foot more of a dull aching 4 to 5-10 duration with some swelling to the left foot patient has been evaluated by primary services as well as vascular surgery and the patient did have a percutaneous balloon angioplasty of the left anterior tibial artery as well as percutaneous directional atherectomy left superficial femoral artery balloon angioplasty of the left superficial femoral artery patient also have a cultures obtained from the left foot on the which were finalized on the with MSSA and a multidrug-resistant Pseudomonas patient is currently being treated with cefepime with consult infectious disease 4 days after the culture has been finalized for further management patient did not have any fever during this hospital stay and the patient did have a normal white count creatinine slightly elevated park PCR has been negative Review of system: CONSTITUTIONAL: Positive for weakness denies fever. EYES: No complaint. ENT: No complaint. RESPIRATORY: No complaint. CARDIOVASCULAR: No complaint. GENITOURINARY: No complaint. GASTROINTESTINAL: No complaint. MUSCULOSKELETAL: As per history of present illness INTEGUMENTARY: As per history of present illness. PSYCHOLOGIC: No complaint. ENDOCRINE: No complaint. NEUROLOGIC: No complaint. Past medical history : Reviewed, documented below Past surgical history : Reviewed, documented below Social history: Reviewed, documented below Medications: Reviewed, as documented below EXAMINATION: Vital sigans= Reviewed and documented below GENERAL DESCRIPTION elderly female lying in bed, no distress. No tachypnea or accessory muscle of respiration use. HEENT: Shows Pallor , no scleral icterus. Oral mucous membrane is dry. NECK: Trachea central, no thyromegaly. LUNGS: Unlabored breathing. Clear to auscultation anteriorly. No wheeze or crackle. HEART: S1, S2, regular rate and rhythm. ABDOMEN: Soft, no tenderness , guarding or rigidity EXTREMITIES: No edema of feet. Left second toe amputation site did have a slough tissue in this patient who did have a blackish on the plantar aspect of the left foot there was no swelling no redness SKIN: No rash, no masses palpable. NEUROLOGICAL: The patient is awake, alert, oriented x2, mood and affect normal. LABS AND RADIOLOGY: Reviewed results see below Assessment : 1-patient with a positive cultures from the left foot second toe amputation site wound in this patient who did have amputation of the left second toe because of the dry gangrene now with evidence of significant peripheral arterial disease status post percutaneous angioplasty, and this patient who did not have any fever or elevated white count and no evidence of any cellulitis likely representing colonization of the wound bed rather than true infection Plan: 1-discontinue cefepime 2-local wound care to continue with the Santyl followed by moist dressing 3-we will monitor the patient closely off antibiotic therapy if develops any fever or elevated white count or an evidence of erythema around the wound bed patient was started on appropriate antibiotics We will follow on clinical condition and cultures to further adjust medication if needed Thank you for this consultation we will follow the patient along with you Past Medical History Past Medical History: Coronary Artery Disease (CAD), CVA/TIA, Diabetes Mellitus, Eye Disorder, Hearing Disorder / Deafness, Hypertension, Liver Disease, Myocardial Infarction (SD), Osteoarthritis (OA), Sleep Apnea/CPAP/BIPAP, Syncope, Thyroid Disorder Additional Past Medical History / Comment(s): IDDM type II, neuropathy knees down bilaterally, ischemic cardiopmyopathy, 2009 small CVA with occasional word finding difficulty, R eye retinal bleed with some vision loss, bilateral diabetic retinopathy, fatty liver, chronic back pain, DDD< mild central canal stenosis, migraines, osteoporosis, UTI, bilateral tinnitis, BROCK no longer tolerates Cpap, benign thyroid nodules, CHI age 14, sycopal episodes as a child, sinus problems, wounds on feet Last Myocardial Infarction Date:: 07/2020 History of Any Multi-Drug Resistant Organisms: None Reported Past Surgical History: Breast Surgery, Heart Catheterization With Stent, Hysterectomy, Orthopedic Surgery, Tubal Ligation Additional Past Surgical History / Comment(s): PCI with stents in 06/2020 and 07/2020, several thyroid gland bxs, bilateral benign breast lumpectomies, D&c, bilateral feet 2 hammer toes each, R knee arthroscopy, low back injections, TTT, colonoscopies, bilateral cataract removals. Past Anesthesia/Blood Transfusion Reactions: No Reported Reaction, Motion Sickness Additional Past Anesthesia/Blood Transfusion Reaction / Comm: hypotension/memory problems Date of Last Stent Placement:: 2019 Past Psychological History: Anxiety, Bipolar, Depression Additional Psychological History / Comment(s): Patient resides at [facility] with her Smoking Status: Never smoker Past Alcohol Use History: None Reported Past Drug Use History: None Reported - Past Family History Father Family Medical History: Cancer Additional Family Medical History / Comment(s): Father had lymphoma. He had LUNG, BONE, THROAT AND MOUTH CANCER Brother(s) Family Medical History: Myocardial Infarction (SD) Additional Family Medical History / Comment(s): Muscle Disease, Rheumatic fever at 2 years old Mother Family Medical History: Cancer Additional Family Medical History / Comment(s): lung cancer- mother. She at the age of 79yrs from esophageal valencia after radiation-unable to eat. Patient states "mother had aneurysm". Medications and Allergies Home Medications Medication Instructions Recorded Confirmed Type Levothyroxine Sodium [Synthroid] 50 mcg PO DAILY@79908/21/17 08/15/21 History Cetirizine HCl [Zyrtec] 10 mg PO DAILY PRN 05/06/20 08/15/21 History Liothyronine Sodium [Cytomel] 5 mcg PO DAILY@79905/06/20 08/15/21 History Sertraline HCl [Zoloft] 50 mg PO DAILY@79905/06/20 08/15/21 History Calcium Carbonate [Calcium] 600 mg PO DAILY@169907/15/20 08/15/21 History Docusate [Colace] 100 mg PO BID PRN 07/15/20 08/15/21 History Cholecalciferol (Vitamin D3) 125 mcg PO DAILY@169902/18/21 08/15/21 History [Vitamin D3 (5000 Iu)] Glimepiride [Amaryl] 4 mg PO DAILY@0804/07/21 08/15/21 History ARIPiprazole [Abilify] 5 mg PO DAILY@79907/16/2121 History Diclofenac Sodium Gel [Voltaren 4 gm TOPICAL QID PRN 07/16/21 08/15/21 History Gel] Nitroglycerin Sl Tabs [Nitrostat] 0.4 mg SL Q5M PRN 07/16/21 08/15/21 History rOPINIRole HCL [Requip] 0.5 mg PO HS@209907/16/21 08/15/21 History Acetaminophen Tab [Tylenol] 650 mg PO Q6HR PRN tab 07/29/21 08/15/21 Rx Albuterol Nebulized [Ventolin 2.5 mg INHALATION RT-Q4H PRN 08/15/21 08/15/21 History Nebulized] Aspirin 81 mg PO DAILY@169908/15/21 08/15/21 History Atorvastatin [Lipitor] 80 mg PO HS@209908/15/21 08/15/21 History Cefepime [Maxipime] 2 gm IVPB BID@0800,209908/15/21 08/15/21 History Ferrous Sulfate [Feosol] 325 mg PO TID@0800,1200,1700 08/15/21 08/15/21 History Furosemide [Lasix] 40 mg PO DAILY@0800 08/15/21 08/15/21 History Gabapentin [Neurontin] 300 mg PO TID@0800,1400,2200 08/15/21 08/15/21 History INSULIN ASPART (NovoLOG) [NovoLOG 15 unit SQ TID@0700,1100,1830 PRN 08/15/21 08/15/21 History (formulary)] INSULIN ASPART (NovoLOG) [NovoLOG See Protocol SQ ACHS 08/15/21 08/15/21 History (formulary)] Insulin Glargine [Lantus Vial] 65 unit SQ HS@21308/15/21 08/15/21 History Liquacel 30 ml PO BID@0800,1700 08/15/21 08/15/21 History Loperamide HCl [Imodium A-D] 2 - 4 mg PO TID PRN 08/15/21 08/15/21 History Magnesium Hydroxide [Milk of 2,400 mg PO DAILY PRN 08/15/21 08/15/21 History Magnesia] Na Phos,M-B/Na Phos,Di-Ba [Fleet 133 ml RECTAL DAILY PRN 08/15/21 08/15/21 Histo ry Adult] Saccharomyces Boulardii 250 mg PO DAILY@0800 08/15/21 08/15/21 History [Saccharomycin Df] Ticagrelor [Brilinta] 90 mg PO BID@0800,1700 08/15/21 08/15/21 History Valsartan [Diovan] 160 mg PO BID@0800,1700 08/15/21 08/15/21 History bisacodyL [Dulcolax] 10 mg RECTAL DAILY PRN 08/15/21 08/15/21 History carvediloL [Coreg*] 12.5 mg PO BID@0800,1700 08/15/21 08/15/21 History Allergies Allergy/AdvReac Type Severity Reaction Status Date / Time Iodinated Contrast Media Allergy Swelling, Verified 08/15/21 23:09 [Iodinated Contrast Media - SHORTNESS IV Dye] OF BREATH latex Allergy Rash/Hives Verified 08/15/21 23:09 talc Allergy Rash/Hives Verified 08/15/21 23:09 adhesive tape AdvReac blisters Verified 08/15/21 23:09 amlodipine AdvReac ankle Verified 08/15/21 23:09 swelling hydralazine AdvReac Diarrhea Verified 08/15/21 23:09 metal Allergy Rash/Hives Uncoded 08/15/21 17:48 Physical Exam Vitals: Vital Signs Temp Pulse Pulse Resp BP Pulse Ox 08/21/21 12:00 97.7 F 72 18 132/56 90 L 08/21/21 08:35 98.1 F 63 16 146/68 96 08/21/21 05:00 97.9 F 63 18 131/50 98 08/20/21 20:13 64 08/20/21 19:57 64 100 08/20/21 19:45 97.9 F 59 L 18 151/66 99 08/20/21 19:40 18 Intake and Output 08/20/21 08/21/21 08/21/21 22:59 06:59 14:59 Intake Total 480 480 Output Total 260 300 Balance 220 -300 480 Intake: Oral 480 480 Output: Urine 260 300 Other: Voiding Method External Catheter External Catheter # Voids 1 # Bowel Movements 1 Weight 144.5 kg Results CBC & Chem 7: 09/27/21 07:09 08/22/21 07:09 Labs: Abnormal Lab Results - Last 24 Hours (Table) 08/20/21 08/20/21 08/21/21 Range/Units 16:39 20:03 11:46 POC Glucose (mg/dL) 270 H 255 H 152 H (75-99) mg/dL
[2021-08-22] MEDS: SERTRALINE 50 MG TAB PO SCH (09:50)
[2021-08-22] MEDS: GABAPENTIN 300 MG CAP PO SCH ×3 (09:50→20:20)
[2021-08-22] MEDS: ARIPiprazole 5 MG TAB PO SCH (09:50)
[2021-08-22] MEDS: LIOTHYRONINE SODIUM 5 MCG TAB PO SCH (09:50)
[2021-08-22] MEDS: hydrALAZINE HCL 25 MG TAB PO SCH ×2 (09:50→20:18)
[2021-08-22] MEDS: LEVOTHYROXINE 50 MCG TAB PO SCH (09:50)
[2021-08-22] MEDS: VALSARTAN 160 MG TAB PO SCH ×2 (09:50→16:45)
[2021-08-22] MEDS: NYSTATIN 100,000 UNIT/GM POWD 15 GM TOPICAL SCH ×2 (09:51→20:19)
[2021-08-22] MEDS: FUROSEMIDE 40 MG TAB PO SCH (09:51)
[2021-08-22] MEDS: carvediloL 12.5 MG TAB PO SCH ×2 (09:51→16:39)
[2021-08-22] MEDS: ISOSORBIDE MONONITRATE ER 60 MG TAB.ER.24H PO SCH (09:51)
[2021-08-22] MEDS: TICAGRELOR 90 MG TAB PO SCH ×2 (09:51→16:39)
[2021-08-22] MEDS: FERROUS SULFATE 325 MG TAB PO SCH ×3 (09:51→16:39)
--- NOTE | 2021-08-22 11:19 | P.PN ---
Subjective Progress Note Date: 08/22/21 Principal diagnosis: Left foot wound with peripheral arterial occlusive disease Seen and examined lying in bed. She is status post left superficial femoral artery atherectomy and angioplasty of the left superficial femoral artery as well as the left anterior tibial artery, peroneal artery. Patient states her left lower extremity pain has improved since procedure. She denies any bleeding from the access site. She is able to move her left lower extremity without any difficulty. Dressing is clean dry and intact. Objective - Vital Signs Vital signs: Vital Signs Temp 97.7 F 08/22/21 08:00 Pulse 68 08/22/21 08:00 Resp 20 08/22/21 08:00 BP 145/49 08/22/21 08:00 Pulse Ox 97 08/22/21 08:00 Intake & Output 08/21/21 08/22/21 08/22/21 18:59 06:59 18:59 Intake Total 660 120 Output Total 750 Balance 660 -750 120 Intake: Oral 660 120 Output: Urine 750 Other: Voiding Method External Catheter External Catheter # Voids 1 # Bowel Movements 1 - Exam General appearance: The patient is alert, oriented, appears in no acute distress. Obese. HET: Head is normocephalic and atraumatic. Neck: Supple without lymphadenopathy. Trachea midline. Abdomen: Soft, nontender, nondistended with bowel sounds. No peritoneal signs. No palpable organomegaly or masses. Extremities: Bilateral lower extremity edema. Left foot with dressing clean dry and intact. Good capillary refill. Able to wiggle toes and move foot. Neurological: Alert and oriented 3. - Labs CBC & Chem 7: 08/22/21 07:09 08/22/21 07:09 Labs: Abnormal Lab Results - Last 24 Hours (Table) 08/21/21 08/21/21 08/21/21 Range/Units 11:46 16:11 20:23 RBC (3.80-5.40) m/uL Hgb (11.4-16.0) gm/dL Hct (34.0-46.0) % RDW (11.5-15.5) % Lymphocytes # (1.0-4.8) k/uL Sodium (137-145) mmol/L Potassium (3.5-5.1) mmol/L BUN (7-17) mg/dL Creatinine (0.52-1.04) mg/dL Glucose (74-99) mg/dL POC Glucose (mg/dL) 152 H 148 H 165 H (75-99) mg/dL 08/22/21 08/22/21 08/22/21 Range/Units 06:17 07:09 07:09 RBC 2.85 L (3.80-5.40) m/uL Hgb 7.7 L (11.4-16.0) gm/dL Hct 23.8 L (34.0-46.0) % RDW 16.1 H (11.5-15.5) % Lymphocytes # 0.9 L (1.0-4.8) k/uL Sodium 132 L (137-145) mmol/L Potassium 5.7 H (3.5-5.1) mmol/L BUN 73 H (7-17) mg/dL Creatinine 1.73 H (0.52-1.04) mg/dL Glucose 114 H (74-99) mg/dL POC Glucose (mg/dL) 133 H (75-99) mg/dL Assessment and Plan Assessment: 1. Critical limb ischemia of left foot [place] 5 status post atherectomy and balloon angioplasty 2. Chronic left foot wound 3. Diabetic neuropathy 4. History of coronary artery disease status post recent end STEMI with stent placement 06/2021 Plan: 1. Continue local wound care per Dr. Ansari 2. Continue medical management 3. There is no further intervention indicated from vascular surgery, we will sign off at this time. Patient to follow-up in 1-2 weeks. The impression and plan of care has been dictated as directed. Dr. Brizuela I performed a history and examination of this patient, discussed the same with the dictator. I agree with the dictator's note ,documented as a scribe. Any additional findings or plans will be noted.
[2021-08-22 11:29] LABS: Glucose,Whole Blood 183 mg/dL (75-99)
--- NOTE | 2021-08-22 13:50 | P.PN ---
Subjective Progress Note Date: 08/22/21 Karly Goyal is a 71 yo F with PMH of CAD s/p stenting last month, PAD, T2DM, HTN, chronic diastolic CHF who presented to the ED on the recommendation of her vascular surgeon due to continued L toe injection and concern for fluid overload. She was most recently admitted approximately 3 weeks ago at which time pt was noted with gangrene of her L 2nd toe and underwent amputation with Dr. Ansari. She was subsequently discharged to [facility] and has continued on cefepime without significant improvement in her wound. She has not been able to bear any weight on the foot. She denies chest pain or shortness of breath. On presentation, vitals stable, WBC normal, Hgb 8.8, BNP 4370, CRP 1.3. XR L foot no evidence of osteomyelitis. 08/17/2021 Continues on dual antiplatelet therapy with aspirin and Brilenta, re cent NSTEMI with stenting of the LAD on 07/16/2021. Appears to be diuresing well on Lasix IV push, edema improving. Renal function improving. Evaluated by cardiology and vascular surgery with recommendations noted and appreciated. Blood sugars better controlled today. Maintained on cefepime. 08/18/2021 oxygen requirements increased up to 3 L to maintain O2 sats in the 90s. T-max 99.2. Denies chest pain, palpitations or increase in shortness of breath. Renal function improving. 08/19/2021 scheduled for left SFA arthrectomy/angioplasty this morning. Diuresing well with continued improvement in lower extremity edema. Chest x-ray noted. Maintained on dual platelet therapy, IV antibiotics. Denies chest pain, palpitations or increasing shortness of breath. Hemoglobin 7.2, 1 unit of packed RBCs ordered prior to surgery. Afebrile, normal WBC. Hypertensive, creatinine 1.05, hydralazine initiated. 08/22/21 status post left SFA arthrectomy/angioplasty.Pain controlled, reports ongoing generalized weakness. Mild worsening of renal function, potassium up to 5.7. Wound culture reporting MSSA and pseudomonas. Afebrile normal WBC. Denies chest pain, palpitations or shortness of breath. Maintaining O2 sats in the high 90s on 2 L nasal cannula. Objective - Vital Signs Vital signs: Vital Signs Temp 97.7 F 08/22/21 08:00 Pulse 68 08/22/21 08:00 Resp 20 08/22/21 08:00 BP 145/49 08/22/21 08:00 Pulse Ox 97 08/22/21 08:00 Intake & Output 08/21/21 08/22/21 08/22/21 18:59 06:59 18:59 Intake Total 660 120 Output Total 750 Balance 660 -750 120 Intake: Oral 660 120 Output: Urine 750 Other: Voiding Method External Catheter External Catheter # Voids 1 # Bowel Movements 1 - Exam General: obese, sitting up in bed, NAD. Vitals reviewed Eyes: PERRL, EOMI, conjunctiva normal HENT: normocephalic, mucus membranes dry Neck: supple, no JVD Lungs: normal respiratory effort, no wheezes or rales CV: Regular rate and rhythm, no murmur. Peripheral pulses 2+. Decreasing edema hair LE Abdomen: soft, nondistended, no organomegaly, positive bowel sounds Skin: warm and dry. L 2nd toe s/p amputation, left foot dressing clean dry and intact, great toe warm, able to perform ankle pumps, wiggle toes. Nystatin powder and cream to bilateral thighs/groin folds. Neuro: A&Ox3, normal mood and affect Microbiology 08/15/21 20:59 Foot - Left Gram Stain - Final 08/15/21 20:59 Foot - Left Wound Culture - Final Staphylococcus aureus Pseudomonas aeruginosa - Labs CBC & Chem 7: 08/22/21 07:09 08/22/21 07:09 Labs: Abnormal Lab Results - Last 24 Hours (Table) 08/21/21 08/21/21 08/22/21 Range/Units 16:11 20:23 06:17 RBC (3.80-5.40) m/uL Hgb (11.4-16.0) gm/dL Hct (34.0-46.0) % RDW (11.5-15.5) % Lymphocytes # (1.0-4.8) k/uL Sodium (137-145) mmol/L Potassium (3.5-5.1) mmol/L BUN (7-17) mg/dL Creatinine (0.52-1.04) mg/dL Glucose (74-99) mg/dL POC Glucose (mg/dL) 148 H 165 H 133 H (75-99) mg/dL 08/22/21 08/22/21 08/22/21 Range/Units 07:09 07:09 11:28 RBC 2.85 L (3.80-5.40) m/uL Hgb 7.7 L (11.4-16.0) gm/dL Hct 23.8 L (34.0-46.0) % RDW 16.1 H (11.5-15.5) % Lymphocytes # 0.9 L (1.0-4.8) k/uL Sodium 132 L (137-145) mmol/L Potassium 5.7 H (3.5-5.1) mmol/L BUN 73 H (7-17) mg/dL Creatinine 1.73 H (0.52-1.04) mg/dL Glucose 114 H (74-99) mg/dL POC Glucose (mg/dL) 183 H (75-99) mg/dL Assessment and Plan Assessment: 1. Acute on chronic diastolic CHF. 2. Hypoxic respiratory failure secondary to the above. 3. Critical ischemia of LLE status post left SFA arthrectomy/angioplasty. Wound Culture reporting MSSA, Pseudomonas-possibly colonization as per ID. 4. Cellulitis and s/p amputation of L 2nd toe. 5. Recent NSTEMI with stenting of the LAD on 07/16/2021. 6. T2DM. 7. Acute renal insufficiency 8. Hyperkalemia secondary to the above 9.Anemia Plan: Continue on current medication regime ,monitoring and symptomatic treatment.maintain IV antibiotics, local wound care . Cefepime discontinued, currently monitoring patient off antibiotic therapy as per ID secondary to suspected colonization.wound care as per vascular surgery. Close monitoring of renal function, electrolytes. Discharge planning in progress for return to s acute rehab tomorrow. The impression and plan of care has been dictated as directed. : I performed a history and examination of this patient, discussed the same with the dictator. I agree with the dictator's note ,documented as a scribe. Any additional findings or plans will be noted.
[2021-08-22 16:17] LABS: Glucose,Whole Blood 244 mg/dL (75-99)
[2021-08-22] MEDS: ASPIRIN 81 MG PO SCH (16:39)
[2021-08-22] MEDS: CALCIUM CARBONATE 500 MG CHEWABLE PO SCH (16:39)
[2021-08-22] MEDS: CHOLECALCIFEROL 25 MCG (1000 IU) TABLET PO SCH (16:44)
--- NOTE | 2021-08-22 17:36 | PN ---
PROGRESS NOTE This is a 71-year-old diabetic female. The patient has a history of left foot second toe gangrene, for which she had a ray amputation about 2 weeks ago. Then patient had severe infrapopliteal occlusive disease. The patient went for atherectomy and balloon angioplasty of the left SFA and infrapopliteal vessel by Dr. Rahul Booth. The patient also has marked swelling of both lower extremities. Today we have changed the dressing. The left third toe base is also involved with some scab formation and some devitalized tissue and also there is on the plantar aspect of the foot there is full-thickness flap necrosis noted of the skin. Patient is under the care of Infectious Disease. We have been using Santyl cream for local wound care. We will re-evaluate tomorrow. Patient may need further debridement. Continue with Santyl cream and IV antibiotics. MMODL / IJN: [id number] /
--- NOTE | 2021-08-22 19:39 | PN ---
PROGRESS NOTE DATE OF SERVICE: 08/22/2021 REASON FOR FOLLOWUP: Left foot wound and positive culture. INTERVAL HISTORY: The patient are afebrile. The patient is breathing comfortably. No chest pain, shortness of breath or cough. No abdominal pain or diarrhea or any worsening pain to the left foot. PHYSICAL EXAMINATION: Blood pressure 156/66, pulse of 70, temperature 97.7. She is 97% on 2 L nasal cannula. GENERAL DESCRIPTION: General description is an elderly female lying in bed in no distress. RESPIRATORY SYSTEM: Unlabored breathing. Clear to auscultation anteriorly. HEART: S1, S2. Regular rate and rhythm. ABDOMEN: Soft. No tenderness. Left foot is currently dressed. No drainage on the dressing. LABS: Hemoglobin is 7.7, white count 8.9, BUN of , creatinine 1.73. DIAGNOSTIC IMPRESSION AND PLAN: Patient with a left foot wound, post amputation of the left second toe with evidence of necrotic changes on the plantar aspect of the left foot . The patient did have a culture obtained from the left second toe amputation site which did show multidrug- resistant Pseudomonas and MSSA. The patient is currently afebrile. There was no evidence of any cellulitis and no fever; more likely representing colonization of this wound, not an active infection. Hence will hold on any further antibiotic therapy at this point. The patient's sister, who has power of detention sergeant, Yomaira, was at the bedside. She did have multiple questions extending all the way to her previous admissions. Those were answered in layman's terms. Total amount of time spent was more than 25 minutes face to face. Will continue to monitor the patient closely local wound care to continue and monitor clinical course closely. Prognosis remains guarded. MMODL / IJN: [id number] /
[2021-08-22 20:00] LABS: Glucose,Whole Blood 222 mg/dL (75-99)
[2021-08-22] MEDS: ATORVASTATIN 80 MG TAB PO SCH (20:19)
[2021-08-22] MEDS: INSULIN DETEMIR (LEVEMIR) 100 UNIT/ML SYR SQ SCH (20:19)
[2021-08-22] MEDS: COLLAGENASE 250 UNIT/GM OINTMENT 30 GM TUBE TOPICAL SCH (23:21)
[2021-08-23 06:09] LABS: Glucose,Whole Blood 182 mg/dL (75-99)
[2021-08-23] MEDS: INSULIN ASPART (NovoLOG) 100 UNIT/ML VIAL SQ SCH ×4 (06:36→20:19)
[2021-08-23 06:44] LABS: Basophils % (A) 0 %; Eosinophils # (A) 0.5 k/uL (0-0.7); Eosinophils % (A) 5 %; HCT 26.8 % (34.0-46.0); HGB 8.4 gm/dL (11.4-16.0); Hypochromasia Slight; Lymphocytes # (A) 0.7 k/uL (1.0-4.8); Lymphocytes % (A) 7 %; MCH 26.9 pg (25.0-35.0); MCHC 31.4 g/dL (31.0-37.0); MCV 85.6 fL (80.0-100.0); Mean Platelet Volume 7.3; Monocytes # (A) 0.6 k/uL (0-1.0); Monocytes % (A) 7 %; Neutrophils # (A) 7.8 k/uL (1.3-7.7); Neutrophils % (A) 80 %; Platelet Count 286 k/uL (150-450); Poikilocytosis Slight; RBC 3.14 m/uL (3.80-5.40); RDW 15.7 % (11.5-15.5); WBC 9.8 k/uL (3.8-10.6)
[2021-08-23 06:59] LABS: Calcium 10.5 mg/dL (8.4-10.2); Potassium 5.5 mmol/L (3.5-5.1)
[2021-08-23] MEDS: ALBUTEROL NEBULIZED 2.5 MG/3 ML INHALATION PRN (07:10)
[2021-08-23] MEDS: VALSARTAN 160 MG TAB PO SCH ×2 (08:57→16:25)
[2021-08-23] MEDS: FUROSEMIDE 40 MG TAB PO SCH (08:57)
[2021-08-23] MEDS: LIOTHYRONINE SODIUM 5 MCG TAB PO SCH (08:57)
[2021-08-23] MEDS: hydrALAZINE HCL 25 MG TAB PO SCH ×2 (08:58→20:19)
[2021-08-23] MEDS: LEVOTHYROXINE 50 MCG TAB PO SCH (08:58)
[2021-08-23] MEDS: carvediloL 12.5 MG TAB PO SCH ×2 (08:58→16:07)
[2021-08-23] MEDS: TICAGRELOR 90 MG TAB PO SCH ×2 (08:58→16:07)
[2021-08-23] MEDS: ISOSORBIDE MONONITRATE ER 60 MG TAB.ER.24H PO SCH (08:58)
[2021-08-23] MEDS: FERROUS SULFATE 325 MG TAB PO SCH ×3 (08:58→16:07)
[2021-08-23] MEDS: ARIPiprazole 5 MG TAB PO SCH (08:58)
[2021-08-23] MEDS: GABAPENTIN 300 MG CAP PO SCH ×3 (08:59→20:19)
[2021-08-23] MEDS: NYSTATIN 100,000 UNIT/GM POWD 15 GM TOPICAL SCH ×2 (08:59→20:20)
[2021-08-23] MEDS: SERTRALINE 50 MG TAB PO SCH (08:59)
[2021-08-23 11:43] LABS: Glucose,Whole Blood 235 mg/dL (75-99)
--- NOTE | 2021-08-23 13:11 | P.PN ---
Subjective Progress Note Date: 08/23/21 Patient was seen and examined. She is status post left superficial femoral artery atherectomy and angioplasty of the left superficial femoral artery as well as the left anterior tibial artery, peroneal artery. Patient states her left lower extremity pain has improved since procedure. She denies any bleeding from the access site. She is able to move her left lower extremity without any difficulty. Dressing is clean dry and intact. Objective - Vital Signs Vital signs: Vital Signs Temp 98.6 F 08/23/21 12:00 Pulse 76 08/23/21 12:00 Resp 20 08/23/21 12:00 BP 148/74 08/23/21 12:00 Pulse Ox 98 08/23/21 12:00 Intake & Output 08/22/21 08/23/21 08/23/21 18:59 06:59 18:59 Intake Total 240 468 Output Total 800 500 Balance 240 -800 -32 Intake: IV 10 Invasive Line 1 10 Oral 240 458 Output: Urine 800 500 Other: Voiding Method External Catheter External Catheter Diaper Incontinent # Voids 1 # Bowel Movements 1 1 - Exam General appearance: The patient is alert, oriented, appears in no acute distress. Obese. HET: Head is normocephalic and atraumatic. Neck: Supple without lymphadenopathy. Trachea midline. Abdomen: Soft, nontender, nondistended with bowel sounds. No peritoneal signs. No palpable organomegaly or masses. Extremities: Bilateral lower extremity edema. Left foot with dressing clean dry and intact. Good capillary refill. Able to wiggle toes and move foot. Neurological: Alert and oriented 3. - Labs CBC & Chem 7: 08/23/21 06:14 08/23/21 06:14 Labs: Abnormal Lab Results - Last 24 Hours (Table) 08/22/21 08/22/21 08/23/21 Range/Units 16:16 19:58 06:08 RBC (3.80-5.40) m/uL Hgb (11.4-16.0) gm/dL Hct (34.0-46.0) % RDW (11.5-15.5) % Neutrophils # (1.3-7.7) k/uL Lymphocytes # (1.0-4.8) k/uL Sodium (137-145) mmol/L Potassium (3.5-5.1) mmol/L BUN (7-17) mg/dL Creatinine (0.52-1.04) mg/dL Glucose (74-99) mg/dL POC Glucose (mg/dL) 244 H 222 H 182 H (75-99) mg/dL Calcium (8.4-10.2) mg/dL 08/23/21 08/23/21 08/23/21 Range/Units 06:14 06:14 11:41 RBC 3.14 L (3.80-5.40) m/uL Hgb 8.4 L (11.4-16.0) gm/dL Hct 26.8 L (34.0-46.0) % RDW 15.7 H (11.5-15.5) % Neutrophils # 7.8 H (1.3-7.7) k/uL Lymphocytes # 0.7 L (1.0-4.8) k/uL Sodium 134 L (137-145) mmol/L Potassium 5.5 H (3.5-5.1) mmol/L BUN 74 H (7-17) mg/dL Creatinine 1.47 H (0.52-1.04) mg/dL Glucose 167 H (74-99) mg/dL POC Glucose (mg/dL) 235 H (75-99) mg/dL Calcium 10.5 H (8.4-10.2) mg/dL Assessment and Plan Assessment: 1. Critical limb ischemia of left foot [place] 5 status post atherectomy and balloon angioplasty 2. Chronic left foot wound 3. Diabetic neuropathy 4. History of coronary artery disease status post recent end STEMI with stent placement 06/2021 Plan: 1. Continue local wound care per Dr. Ansari, patient to follow-up with Dr. Ansari and consider possible transmetatarsal amputation outpatient 2. Continue medical management 3. There is no further intervention indicated from vascular surgery, we will sign off at this time. The impression and plan of care has been dictated as directed. Dr. Booth I performed a history and examination of this patient, discussed the same with the dictator. I agree with the dictator's note ,documented as a scribe. Any additional findings or plans will be noted.
--- NOTE | 2021-08-23 14:43 | P.PN ---
Subjective Progress Note Date: 08/23/21 Karly Goyal is a 71 yo F with PMH of CAD s/p stenting last month, PAD, T2DM, HTN, chronic diastolic CHF who presented to the ED on the recommendation of her vascular surgeon due to continued L toe injection and concern for fluid overload. She was most recently admitted approximately 3 weeks ago at which time pt was noted with gangrene of her L 2nd toe and underwent amputation with Dr. Ansari. She was subsequently [facility] and has continued on cefepime without significant improvement in her wound. She has not been able to bear any weight on the foot. She denies chest pain or shortness of breath. On presentation, vitals stable, WBC normal, Hgb 8.8, BNP 4370, CRP 1.3. XR L foot no evidence of osteomyelitis. 08/17/2021 Continues on dual antiplatelet therapy with aspirin and Brilenta, re cent NSTEMI with stenting of the LAD on 07/16/2021. Appears to be diuresing well on Lasix IV push, edema improving. Renal function improving. Evaluated by cardiology and vascular surgery with recommendations noted and appreciated. Blood sugars better controlled today. Maintained on cefepime. 08/18/2021 oxygen requirements increased up to 3 L to maintain O2 sats in the 90s. T-max 99.2. Denies chest pain, palpitations or increase in shortness of breath. Renal function improving. 08/19/2021 scheduled for left SFA arthrectomy/angioplasty this morning. Diuresing well with continued improvement in lower extremity edema. Chest x-ray noted. Maintained on dual platelet therapy, IV antibiotics. Denies chest pain, palpitations or increasing shortness of breath. Hemoglobin 7.2, 1 unit of packed RBCs ordered prior to surgery. Afebrile, normal WBC. Hypertensive, creatinine 1.05, hydralazine initiated. 08/22/21 status post left SFA arthrectomy/angioplasty.Pain controlled, reports ongoing generalized weakness. Mild worsening of renal function, potassium up to 5.7. Wound culture reporting MSSA and pseudomonas. Afebrile normal WBC. Denies chest pain, palpitations or shortness of breath. Maintaining O2 sats in the high 90s on 2 L nasal cannula. 08/15/2021 transient metatarsal amputation being discussed, pending further evaluation per Dr. Elan, vascular surgery.currently monitoring patient off antibiotic therapy as per ID secondary to suspected colonization. Afebrile, normal WBC. Continues diet intake, positive bowel movement. Creatinine down to 1.47. Objective - Vital Signs Vital signs: Vital Signs Temp 98.6 F 08/23/21 12:00 Pulse 76 08/23/21 12:00 Resp 20 08/23/21 12:00 BP 148/74 08/23/21 12:00 Pulse Ox 98 08/23/21 12:00 Intake & Output 08/22/21 08/23/21 08/23/21 18:59 06:59 18:59 Intake Total 240 728 Output Total 800 500 Balance 240 -800 228 Intake: IV 10 Invasive Line 1 10 Oral 240 718 Output: Urine 800 500 Other: Voiding Method External Catheter External Catheter Diaper Incontinent # Voids 1 # Bowel Movements 1 1 - Exam General: obese, sitting up in bed, NAD. Vitals reviewed Eyes: PERRL, EOMI, conjunctiva normal HENT: normocephalic, mucus membranes dry Neck: supple, no JVD Lungs: normal respiratory effort, no wheezes or rales CV: Regular rate and rhythm, no murmur. Peripheral pulses 2+. Decreasing edema hair LE Abdomen: soft, nondistended, no organomegaly, positive bowel sounds Skin: warm and dry. Bilateral thighs/groin folds with nystatin powder/barrier Cream. L 2nd toe s/p amputation, left foot dressing clean dry and intact, great toe warm, able to move foot, wiggle toes. Neuro: A&Ox3, normal mood and affect - Labs CBC & Chem 7: 08/23/21 06:14 08/23/21 06:14 Labs: Abnormal Lab Results - Last 24 Hours (Table) 08/22/21 08/22/21 08/23/21 Range/Units 16:16 19:58 06:08 RBC (3.80-5.40) m/uL Hgb (11.4-16.0) gm/dL Hct (34.0-46.0) % RDW (11.5-15.5) % Neutrophils # (1.3-7.7) k/uL Lymphocytes # (1.0-4.8) k/uL Sodium (137-145) mmol/L Potassium (3.5-5.1) mmol/L BUN (7-17) mg/dL Creatinine (0.52-1.04) mg/dL Glucose (74-99) mg/dL POC Glucose (mg/dL) 244 H 222 H 182 H (75-99) mg/dL Calcium (8.4-10.2) mg/dL 08/23/21 08/23/21 08/23/21 Range/Units 06:14 06:14 11:41 RBC 3.14 L (3.80-5.40) m/uL Hgb 8.4 L (11.4-16.0) gm/dL Hct 26.8 L (34.0-46.0) % RDW 15.7 H (11.5-15.5) % Neutrophils # 7.8 H (1.3-7.7) k/uL Lymphocytes # 0.7 L (1.0-4.8) k/uL Sodium 134 L (137-145) mmol/L Potassium 5.5 H (3.5-5.1) mmol/L BUN 74 H (7-17) mg/dL Creatinine 1.47 H (0.52-1.04) mg/dL Glucose 167 H (74-99) mg/dL POC Glucose (mg/dL) 235 H (75-99) mg/dL Calcium 10.5 H (8.4-10.2) mg/dL Assessment and Plan Assessment: 1. Acute on chronic diastolic CHF. 2. Hypoxic respiratory failure secondary to the above. 3. Critical ischemia of LLE status post left SFA arthrectomy/angioplasty. Wound Culture reporting MSSA, Pseudomonas-possibly colonization as per ID. 4. Cellulitis and s/p amputation of L 2nd toe. 5. Recent NSTEMI with stenting of the LAD on 07/16/2021. 6. T2DM. 7. Acute renal insufficiency 8. Hyperkalemia secondary to the above 9.Anemia Plan: Continue on current medication regime ,monitoring and symptomatic treatment. Local wound care as per Dr. Ansari/vascular surgery. Daily weights.Close monitoring of renal function, electrolytes. Discharge planning in progress for return to subacute rehab., pending final DC recommendati ons/clearance per Dr. Ansari. The impression and plan of care has been dictated as directed. : I performed a history and examination of this patient, discussed the same with the dictator. I agree with the dictator's note ,documented as a scribe. Any additional findings or plans will be noted.
[2021-08-23] MEDS: ASPIRIN 81 MG PO SCH (16:07)
[2021-08-23] MEDS: CALCIUM CARBONATE 500 MG CHEWABLE PO SCH (16:07)
[2021-08-23] MEDS: ACETAMINOPHEN TAB 325 MG TAB PO PRN (16:07)
[2021-08-23] MEDS: CHOLECALCIFEROL 25 MCG (1000 IU) TABLET PO SCH (16:07)
[2021-08-23] MEDS: DOCUSATE 100 MG CAP PO PRN (16:07)
[2021-08-23 16:16] LABS: Glucose,Whole Blood 300 mg/dL (75-99)
--- NOTE | 2021-08-23 16:55 | P.PN ---
Progress Note - Text 71-year-old white female history of diabetes peripheral vascular disease patient had a left foot Second toe amputation done for wet gangrene in the past patient has developed progressive eschar formation patient also has a third toe some ulcer and graft infection today I have reviewed the wound again we been using Santyl cream plan is discussed with the patient and we will control the infection most likely she will be needing a past metatarsal amputation we'll discuss with the family. Patient had a vascular intervention done she DP is palpable on the foot follow with you we will arrange after discussing with the family about crossbite amputation thank you
--- NOTE | 2021-08-23 18:30 | PN ---
PROGRESS NOTE DATE OF SERVICE: 08/23/2021 REASON FOR FOLLOWUP: Left foot wound ischemia and a positive culture. INTERVAL HISTORY: The patient is afebrile. The patient is breathing comfortably. No chest pain, shortness of breath or cough. No abdominal pain or any worsening pain to the left foot area. PHYSICAL EXAMINATION: Her blood pressure is 139/60 with a pulse of 68, temp is 97.9. She is 98% on 2 L nasal cannula. General description is an elderly female up in the chair in no distress. Respiratory system: Unlabored breathing, clear to auscultation anteriorly. Heart S1, S2. Regular rate and rhythm. Abdomen soft, no tenderness. Left foot is currently dressed with no drainage on the dressing. LAB DATA: Hemoglobin is 8.4, white count 9.8. BUN of 74, creatinine 1.47. DIAGNOSTIC IMPRESSION AND PLAN: Patient with left foot wound, post amputation of the left second toe with evidence of necrotic changes on the plantar aspect of the left foot. Wound culture positive for drug-resistant Pseudomonas. However, the patient did not have any evidence of cellulitis. No fever or elevated white count, more likely colonization of the wound. Hence recommend no antibiotic therapy at this point. Continue supportive care. MMODL / IJN: [id number] /
[2021-08-23 20:11] LABS: Glucose,Whole Blood 247 mg/dL (75-99)
[2021-08-23] MEDS: COLLAGENASE 250 UNIT/GM OINTMENT 30 GM TUBE TOPICAL SCH (20:19)
[2021-08-23] MEDS: ATORVASTATIN 80 MG TAB PO SCH (20:19)
[2021-08-23] MEDS: INSULIN DETEMIR (LEVEMIR) 100 UNIT/ML SYR SQ SCH (20:20)
[2021-08-24 06:13] LABS: Glucose,Whole Blood 151 mg/dL (75-99)
[2021-08-24] MEDS: INSULIN ASPART (NovoLOG) 100 UNIT/ML VIAL SQ SCH ×4 (06:33→20:14)
[2021-08-24 08:18] LABS: Calcium 10.4 mg/dL (8.4-10.2); Potassium 5.8 mmol/L (3.5-5.1)
[2021-08-24] MEDS: LIOTHYRONINE SODIUM 5 MCG TAB PO SCH (08:59)
[2021-08-24] MEDS: TICAGRELOR 90 MG TAB PO SCH ×2 (08:59→18:09)
[2021-08-24] MEDS: ARIPiprazole 5 MG TAB PO SCH (08:59)
[2021-08-24] MEDS: LEVOTHYROXINE 50 MCG TAB PO SCH (08:59)
[2021-08-24] MEDS: SERTRALINE 50 MG TAB PO SCH (08:59)
[2021-08-24] MEDS: GABAPENTIN 300 MG CAP PO SCH ×3 (08:59→21:55)
[2021-08-24] MEDS: ISOSORBIDE MONONITRATE ER 60 MG TAB.ER.24H PO SCH (09:00)
[2021-08-24] MEDS: ACETAMINOPHEN TAB 325 MG TAB PO PRN ×2 (09:00→20:10)
[2021-08-24] MEDS: FERROUS SULFATE 325 MG TAB PO SCH ×3 (09:00→18:09)
[2021-08-24] MEDS: carvediloL 12.5 MG TAB PO SCH ×2 (09:00→18:09)
[2021-08-24] MEDS: hydrALAZINE HCL 25 MG TAB PO SCH ×2 (09:00→21:55)
[2021-08-24] MEDS: NYSTATIN 100,000 UNIT/GM POWD 15 GM TOPICAL SCH ×2 (09:01→21:56)
[2021-08-24] MEDS: VALSARTAN 160 MG TAB PO SCH ×2 (09:01→18:09)
[2021-08-24] MEDS: FUROSEMIDE 40 MG TAB PO SCH (09:08)
[2021-08-24 11:33] LABS: Glucose,Whole Blood 192 mg/dL (75-99)
--- NOTE | 2021-08-24 13:39 | PN ---
PROGRESS NOTE DATE OF SERVICE: 08/24/2021 REASON FOR FOLLOWUP: Left foot ulcer ischemia and positive culture. INTERVAL HISTORY: The patient is afebrile. The patient is breathing comfortably. The patient denies having any chest pain, shortness of breath or cough. No abdominal pain, or any worsening to the left foot. PHYSICAL EXAMINATION: Blood pressure 135/65, pulse of 78. Temperature is 97.3. She is 98% on 2 L nasal cannula. General description is an elderly female lying in bed in no distress. Respiratory system: Unlabored breathing, clear to auscultation anteriorly. Heart S1, S2. Regular rate and rhythm. Abdomen soft, no tenderness. Left foot is currently dressed. No obvious drainage on the dressing. LABS: BUN of 75, creatinine is 1.76. DIAGNOSTIC IMPRESSION AND PLAN: Patient with left foot wound, post amputation of the left second toe with concern for underlying ischemia, status post angioplasty. Positive cultures, more likely colonization. Patient with no fever or elevated white count. No obvious cellulitis and no antibiotic therapy at this point and monitor the patient closely off antibiotics. Continue supportive care. MMODL / IJN: [id number] /
[2021-08-24 16:12] LABS: Glucose,Whole Blood 283 mg/dL (75-99)
[2021-08-24] MEDS: ASPIRIN 81 MG PO SCH (18:09)
[2021-08-24] MEDS: CALCIUM CARBONATE 500 MG CHEWABLE PO SCH (18:10)
[2021-08-24] MEDS: CHOLECALCIFEROL 25 MCG (1000 IU) TABLET PO SCH (18:13)
[2021-08-24] MEDS ORDERED: SODIUM POLYSTYRENE SULFONATE 15 GM/60 ML BOTTLE PO STA (19:43)
[2021-08-24] MEDS: COLLAGENASE 250 UNIT/GM OINTMENT 30 GM TUBE TOPICAL SCH (19:48)
[2021-08-24 20:07] LABS: Glucose,Whole Blood 276 mg/dL (75-99)
[2021-08-24] MEDS: DOCUSATE 100 MG CAP PO PRN (20:10)
[2021-08-24] MEDS: INSULIN DETEMIR (LEVEMIR) 100 UNIT/ML SYR SQ SCH (20:14)
[2021-08-24] MEDS: ATORVASTATIN 80 MG TAB PO SCH (21:55)
[2021-08-24] MEDS: ALPRAZolam 0.25 MG TAB PO PRN (23:23)
[2021-08-24] MEDS: FLUCONAZOLE 100 MG TAB PO SCH (23:23)
[2021-08-25 06:03] LABS: Glucose,Whole Blood 152 mg/dL (75-99)
[2021-08-25] MEDS: INSULIN ASPART (NovoLOG) 100 UNIT/ML VIAL SQ SCH ×3 (06:33→17:26)
[2021-08-25] MEDS: ACETAMINOPHEN TAB 325 MG TAB PO PRN (06:56)
--- NOTE | 2021-08-25 07:45 | P.PN ---
Subjective Progress Note Date: 08/24/21 She continues on lasix 40 mg daily, leg swelling improved, Creatinine up to 1.7 today. She remains hyperkalemic with potassium 5.8. Leg pain improving. Pt noted with candidiasis around groin folds Objective - Vital Signs Vital signs: Vital Signs Temp 97.6 F 08/25/21 04:00 Pulse 69 08/25/21 04:00 Resp 18 08/25/21 04:00 BP 147/67 08/25/21 04:00 Pulse Ox 97 08/25/21 04:00 Intake & Output 08/24/21 08/25/21 08/25/21 18:59 06:59 18:59 Intake Total 720 Output Total 300 1600 Balance 420 -1600 Weight 147.5 kg Intake: Oral 720 Output: Urine 300 1600 Uretheral (Delgado) 1400 Other: Voiding Method Diaper Indwelling Catheter Incontinent # Voids 1 1 # Bowel Movements 1 - Exam General: well nourished, obese. Vitals reviewed Lungs: normal respiratory effort, no wheezes or rales CV: Regular rate and rhythm, no murmur. Peripheral pulses 2+ Abdomen: soft, nondistended, no organomegaly Skin: warm and dry. - Labs CBC & Chem 7: 08/23/21 06:14 08/24/21 07:02 Labs: Abnormal Lab Results - Last 24 Hours (Table) 08/24/21 08/24/21 08/24/21 Range/Units 07:02 11:31 16:11 Sodium 134 L (137-145) mmol/L Potassium 5.8 H (3.5-5.1) mmol/L BUN 75 H (7-17) mg/dL Creatinine 1.76 H (0.52-1.04) mg/dL Glucose 132 H (74-99) mg/dL POC Glucose (mg/dL) 192 H 283 H (75-99) mg/dL Calcium 10.4 H (8.4-10.2) mg/dL 08/24/21 08/25/21 Range/Units 20:04 06:02 Sodium (137-145) mmol/L Potassium (3.5-5.1) mmol/L BUN (7-17) mg/dL Creatinine (0.52-1.04) mg/dL Glucose (74-99) mg/dL POC Glucose (mg/dL) 276 H 152 H (75-99) mg/dL Calcium (8.4-10.2) mg/dL Assessment and Plan Plan: Continue with IV lasix, start diflucan for yeast and delgado for skin breakdown. Treat hyperkalemia with kayexalate. Vascular surgery following, s/p SFA angioplasty, considering possible transmetatarsal amputation and flap
[2021-08-25 08:35] LABS: Albumin 2.8 g/dL (3.5-5.0); Calcium 10.1 mg/dL (8.4-10.2); Potassium 5.4 mmol/L (3.5-5.1); Total Bilirubin 0.4 mg/dL (0.2-1.3); Total Protein 5.7 g/dL (6.3-8.2)
[2021-08-25] MEDS: FUROSEMIDE 40 MG TAB PO SCH (10:02)
[2021-08-25] MEDS: ISOSORBIDE MONONITRATE ER 60 MG TAB.ER.24H PO SCH (10:02)
[2021-08-25] MEDS: carvediloL 12.5 MG TAB PO SCH ×2 (10:03→17:25)
[2021-08-25] MEDS: hydrALAZINE HCL 25 MG TAB PO SCH (10:03)
[2021-08-25] MEDS: LEVOTHYROXINE 50 MCG TAB PO SCH (10:03)
[2021-08-25] MEDS: FERROUS SULFATE 325 MG TAB PO SCH ×3 (10:03→17:25)
[2021-08-25] MEDS: SERTRALINE 50 MG TAB PO SCH (10:03)
[2021-08-25] MEDS: GABAPENTIN 300 MG CAP PO SCH ×2 (10:04→12:40)
[2021-08-25] MEDS: FLUCONAZOLE 100 MG TAB PO SCH (10:04)
[2021-08-25] MEDS: ARIPiprazole 5 MG TAB PO SCH (10:05)
[2021-08-25] MEDS: LIOTHYRONINE SODIUM 5 MCG TAB PO SCH (10:05)
[2021-08-25] MEDS: TICAGRELOR 90 MG TAB PO SCH ×2 (10:06→17:25)
[2021-08-25] MEDS: VALSARTAN 160 MG TAB PO SCH ×2 (10:06→17:26)
[2021-08-25] MEDS: NYSTATIN 100,000 UNIT/GM POWD 15 GM TOPICAL SCH (10:18)
--- NOTE | 2021-08-25 10:33 | P.DS ---
Providers Date of admission: 08/15/21 21:49 Expected date of discharge: 08/25/21 Attending physician: Boris Galeano MD Consults: 08/15/21 21:58 Consult Physician Routine Consulting Provider: Joesph Quevedo Consult Reason/Comments: chf Do you want consulting provider notified?: Yes 08/15/21 22:01 Consult Physician Routine Consulting Provider: Tez Ansari Consult Reason/Comments: Diabetic foot ulcer Do you want consulting provider notified?: Yes, Notify in am 08/20/21 18:02 Consult Physician Routine Consulting Provider: Celestina Peck Consult Reason/Comments: resistant pseudomonas Do you want consulting provider notified?: Yes Primary care physician: Boris Galeano MD Hospital Course: Karly Goyal is a 71 yo F with PMH of CAD s/p stenting last month, PAD, T2DM, HTN, chronic diastolic CHF who presented to the ED on the recommendation of her vascular surgeon due to continued L toe injection and concern for fluid overload. She was most recently admitted approximately 3 weeks ago at which time pt was noted with gangrene of her L 2nd toe and underwent amputation with Dr. Ansari. She was subsequently discharged to [facility] and has continued on cefepime without significant improvement in her wound. She has not been able to bear any weight on the foot. She denies chest pain or shortness of breath. On presentation, vitals stable, WBC normal, Hgb 8.8, BNP 4370, CRP 1.3. XR L foot no evidence of osteomyelitis. Pt admitted to medicine and seen by vascular surgery, ID and cardiology. She underwent balloon angioplasty of the SFA with subsequent reperfusion. She was seen by ID and her cefepime was stopped as osteomyeltitis had resolved. Pt was treated with local Santyl daily and this is recommended to continue upon discharge. She will closely follow up with vascular surgery as an outpatient. Gen: well developed, obese, NAD CV: RRR, no murmur Lungs: normal effort, clear throughout Skin: LLE 2nd digit amputation, no erythema Plan - Discharge Summary Discharge Rx Participant: No New Discharge Prescriptions: New Collagenase [Santyl] 1 applic TOPICAL HS #30 gm Nystatin 100,000 Unit/gm Powd [Mycostatin Powder] 1 applic TOPICAL BID #60 gm Continue Levothyroxine Sodium [Synthroid] 50 mcg PO DAILY@0800 Liothyronine Sodium [Cytomel] 5 mcg PO DAILY@0800 Sertraline HCl [Zoloft] 50 mg PO DAILY@0800 Cetirizine HCl [Zyrtec] 10 mg PO DAILY PRN PRN Reason: Allergy Symptoms Docusate [Colace] 100 mg PO BID PRN PRN Reason: Constipation Calcium Carbonate [Calcium] 600 mg PO DAILY@1700 Cholecalciferol (Vitamin D3) [Vitamin D3 (5000 Iu)] 125 mcg PO DAILY@1700 Glimepiride [Amaryl] 4 mg PO DAILY@0800 Nitroglycerin Sl Tabs [Nitrostat] 0.4 mg SL Q5M PRN PRN Reason: Chest Pain Acetaminophen Tab [Tylenol] 650 mg PO Q6HR PRN tab PRN Reason: Fever And/ Or Pain Liquacel 30 ml PO BID@0800,1700 Aspirin 81 mg PO DAILY@1700 Ferrous Sulfate [Iron (65 MG Elemental)] 325 mg PO TID@0800,1200,1700 INSULIN ASPART (NovoLOG) [NovoLOG (formulary)] 15 unit SQ TID@0700,1100,1830 PRN PRN Reason: HOLD IF BS LESS THAN 120 Loperamide HCl [Imodium A-D] 2 - 4 mg PO TID PRN PRN Reason: Diarrhea Saccharomyces Boulardii [Saccharomycin Df] 250 mg PO DAILY@0800 rOPINIRole HCL [Requip] 0.5 mg PO HS@2100 Diclofenac Sodium Gel [Voltaren Gel] 4 gm TOPICAL QID PRN PRN Reason: Leg pain ARIPiprazole [Abilify] 5 mg PO DAILY@0800 Albuterol Nebulized [Ventolin Nebulized] 2.5 mg INHALATION RT-Q4H PRN PRN Reason: Shortness Of Breath Atorvastatin [Lipitor] 80 mg PO HS@2100 bisacodyL [Dulcolax] 10 mg RECTAL DAILY PRN PRN Reason: Constipation carvediloL [Coreg*] 12.5 mg PO BID@0800,1700 Furosemide [Lasix] 40 mg PO DAILY@0800 Gabapentin [Neurontin] 300 mg PO TID@0800,1400,2200 INSULIN ASPART (NovoLOG) [NovoLOG (formulary)] See Protocol SQ ACHS Insulin Glargine [Lantus Vial] 65 unit SQ HS@2130 Magnesium Hydroxide [Milk of Magnesia] 2,400 mg PO DAILY PRN PRN Reason: Constipation Na Phos,M-B/Na Phos,Di-Ba [Fleet Adult] 133 ml RECTAL DAILY PRN PRN Reason: Constipation Ticagrelor [Brilinta] 90 mg PO BID@0800,1700 Valsartan [Diovan] 160 mg PO BID@0800,1700 Discontinued Cefepime [Maxipime] 2 gm IVPB BID@799,2099 Discharge Medication List Levothyroxine Sodium [Synthroid] 50 mcg PO DAILY@79908/21/17 [History] Cetirizine HCl [Zyrtec] 10 mg PO DAILY PRN 05/06/20 [History] Liothyronine Sodium [Cytomel] 5 mcg PO DAILY@79905/06/20 [History] Sertraline HCl [Zoloft] 50 mg PO DAILY@79905/06/20 [History] Calcium Carbonate [Calcium] 600 mg PO DAILY@169907/15/20 [History] Docusate [Colace] 100 mg PO BID PRN 07/15/20 [History] Cholecalciferol (Vitamin D3) [Vitamin D3 (5000 Iu)] 125 mcg PO DAILY@169902/18/21 [History] Glimepiride [Amaryl] 4 mg PO DAILY@79904/07/21 [History] ARIPiprazole [Abilify] 5 mg PO DAILY@79907/16/21 [History] Diclofenac Sodium Gel [Voltaren Gel] 4 gm TOPICAL QID PRN 07/16/21 [History] Nitroglycerin Sl Tabs [Nitrostat] 0.4 mg SL Q5M PRN 07/16/21 [History] rOPINIRole HCL [Requip] 0.5 mg PO HS@209907/16/21 [History] Acetaminophen Tab [Tylenol] 650 mg PO Q6HR PRN tab 07/29/21 [Rx] Albuterol Nebulized [Ventolin Nebulized] 2.5 mg INHALATION RT-Q4H PRN 08/15/21 [History] Aspirin 81 mg PO DAILY@169908/15/21 [History] Atorvastatin [Lipitor] 80 mg PO HS@209908/15/21 [History] Ferrous Sulfate [Iron (65 MG Elemental)] 325 mg PO TID@0800,1200,1700 08/15/21 [History] Furosemide [Lasix] 40 mg PO DAILY@0800 08/15/21 [History] Gabapentin [Neurontin] 300 mg PO TID@0800,1400,2200 08/15/21 [History] INSULIN ASPART (NovoLOG) [NovoLOG (formulary)] 15 unit SQ TID@0700,1100,1830 PRN 08/15/21 [History] INSULIN ASPART (NovoLOG) [NovoLOG (formulary)] See Protocol SQ ACHS 08/15/21 [History] Insulin Glargine [Lantus Vial] 65 unit SQ HS@2130 08/15/21 [History] Liquacel 30 ml PO BID@0800,17008/15/21 [History] Loperamide HCl [Imodium A-D] 2 - 4 mg PO TID PRN 08/15/21 [History] Magnesium Hydroxide [Milk of Magnesia] 2,400 mg PO DAILY PRN 08/15/21 [History] Na Phos,M-B/Na Phos,Di-Ba [Fleet Adult] 133 ml RECTAL DAILY PRN 08/15/21 [History] Saccharomyces Boulardii [Saccharomycin Df] 250 mg PO DAILY@0800 08/15/21 [History] Ticagrelor [Brilinta] 90 mg PO BID@0800,1700 08/15/21 [History] Valsartan [Diovan] 160 mg PO BID@0800,1700 08/15/21 [History] bisacodyL [Dulcolax] 10 mg RECTAL DAILY PRN 08/15/21 [History] carvediloL [Coreg*] 12.5 mg PO BID@0800,1700 08/15/21 [History] Collagenase [Santyl] 1 applic TOPICAL HS #30 gm 08/24/21 [Rx] Nystatin 100,000 Unit/gm Powd [Mycostatin Powder] 1 applic TOPICAL BID #60 gm 08/24/21 [Rx] Follow up Appointment(s)/Referral(s): Boris Galeano MD [Primary Care Provider] - 1-2 days Rahul Booth DO [STAFF PHYSICIAN] - 2 Weeks Discharge Disposition: TRANSFER TO SNF/F
[2021-08-25 11:38] LABS: Glucose,Whole Blood 148 mg/dL (75-99)
[2021-08-25 12:01] VITALS: BP 139/73; PULSE 75; RESP 12; TEMP 98.1
[2021-08-25 16:57] LABS: Glucose,Whole Blood 233 mg/dL (75-99)
[2021-08-25] MEDS: CHOLECALCIFEROL 25 MCG (1000 IU) TABLET PO SCH (17:25)
[2021-08-25] MEDS: ASPIRIN 81 MG PO SCH (17:26)
[2021-08-25] MEDS: CALCIUM CARBONATE 500 MG CHEWABLE PO SCH (17:26)
--- NOTE | 2021-08-25 17:30 | PN ---
PROGRESS NOTE This is a 71-year-old white female with a history of severe peripheral vascular disease, hypertension, congestive heart failure. The patient was seen with wet gangrene of the left second toe. She has been coming to the wound clinic. The patient went for ray amputation and we also did an angiogram. Patient has severe SFA and infrapopliteal occlusive disease. The patient had atherectomy and angioplasty by Dr. Rahul Booth. There was a dry scab formation noted on the base of the big toe. The patient has been treated with IV antibiotic by Infectious Disease and we have been using Santyl cream for the stump of the amputation of the second toe. The antibiotic has been stopped because osteomyelitis has resolved. PLAN: We will continue the Santyl cream and the patient will be seen in my office on Sunday. We are waiting for demarcation, then patient may need amputation of the toes or possible transmetatarsal amputation. Discussed with the family. We will follow in the office on Sunday. We will continue with Santyl cream. MMODL / IJN: [id number] /
--- NOTE | 2021-08-26 11:43 | CDI ---
Documentation Clarification Form Date: 08/26/21 From: Nicky Landaverde Admit Date: 08/15/2021 09:49:00 PM Patient Name: Karly Goyal Visit Number: [id number] Discharge Date: 08/25/2021 06:29:00 PM ATTENTION: The Clinical Documentation Specialists (CDI) and [facility] Coding Staff appreciate your assistance in clarifying documentation. Please respond to the clarification below the line at the bottom and electronically sign. The CDI & [facility] Coding staff will review the response and follow-up if needed. Please note: Queries are made part of the Legal Health Record. If you have any questions, please contact the author of this message via ITS. Dr. Boris Galeano, Unspecified CKD is documented in the cardiology consult and progress notes. Additional clarification regarding the stage of CKD is requested. History/Risk Factors: DM with multiple complications, HTN w acute on chronic diastolic CHF, morbid obesity Patients Historical BUN/CR/GFR: not available Clinical Indicators: Current BUN: 50, 47, 41, 40, 53, 73, 74, 75, 81 CR: 1.75, 0.97, 0.94, 1.05, 1.32, 1.73, 1.47, 1.76, 1.75 GFR: 47, 58, 61, 53, 40, 29, 35, 28, 28 Treatment: monitor renal function and electrolytes, IV Lasix 40mg BID Please clarify the stage of the CKD, if known: [ ] CKD Stage 1 (GFR > 90) [ ] CKD Stage 2 (GFR 60-89) [ ] CKD Stage 3 (GFR 30-59) [ ] CKD Stage 3a (GFR 45-59) [ ] CKD Stage 3b (GFR 30-44) [ ] CKD Stage 4 (GFR 15-29) [ ] CKD Stage 5 (GFR <15) [ ] ESRD [ ] Other, please specify [ ] Unable to determine CKD Stage 3 (GFR 30-59) MTDD
--- NOTE | 2021-08-27 16:14 | P.PN ---
Progress Note - Text Progress Note Date: 08/25/21 REASON FOR FOLLOWUP: Left foot ulcer wound/ischemia and positive culture. INTERVAL HISTORY: The patient continues to be afebrile. The patient is breathing comfortably. The patient denies having any chest pain, shortness of breath or cough. No abdominal pain, Pain to the left foot is currently controlled. PHYSICAL EXAMINATION: Blood pressure 130/60, pulse of 78. Temperature is 97.3. She is 98% on 2 L nasal cannula. General description is an elderly female lying in bed in no distress. Respiratory system: Unlabored breathing, clear to auscultation anteriorly. Heart S1, S2. Regular rate and rhythm. Abdomen soft, no tenderness. Left foot is currently dressed. No obvious drainage on the dressing. Some discoloration of the left third toe on medial side LABS: Reviewed DIAGNOSTIC IMPRESSION AND PLAN: Patient with left foot wound, post amputation of the left second toe with concer n for underlying ischemia, status post angioplasty. Positive cultures, more likely representing colonization. Patient with no fever or elevated white count and there is no cellulitis Around the wound to continue monitor patient closely off anybody therapy, possible plan for Transmetatarsal amputation per vascular surgery
== END 2021-08-25 18:29 | DRG 270 ==
LOC: EC 16:48 → 4SSUR 21:49 → 5NMEDONC 23:40 → 3SCARD 08-19 12:44
PROVIDERS: ADMIT Family Medicine; ATTEND Family Medicine
PROC: 047U3ZZ Dilation of Left Peroneal Artery, Percutaneous Approach (ICD-10-PCS; principal; 2021-08-19 10:30)
PROC: 047Q3ZZ Dilation of Left Anterior Tibial Artery, Percutaneous Approach (ICD-10-PCS; principal; 2021-08-19 10:30)
PROC: 047L3Z1 Dilation of Left Femoral Artery using Drug-Coated Balloon, Percutaneous Approach (ICD-10-PCS; principal; 2021-08-19 10:30)
PROC: 04CL3ZZ Extirpation of Matter from Left Femoral Artery, Percutaneous Approach (ICD-10-PCS; principal; 2021-08-19 10:30)
PROC: 30233N1 Transfusion of Nonautologous Red Blood Cells into Peripheral Vein, Percutaneous Approach (ICD-10-PCS; 2021-08-19 10:30)
DX: E11.51 Type 2 diabetes mellitus with diabetic peripheral angiopathy without gangrene (principal); I50.33 Acute on chronic diastolic (congestive) heart failure; J96.01 Acute respiratory failure with hypoxia; I13.0 Hypertensive heart and chronic kidney disease with heart failure and stage 1 through stage 4 chronic kidney disease, or unspecified chronic kidney disease; I70.262 Atherosclerosis of native arteries of extremities with gangrene, left leg; Z68.43 Body mass index [BMI] 50.0-59.9, adult; L03.116 Cellulitis of left lower limb; N17.9 Acute kidney failure, unspecified; Z16.24 Resistance to multiple antibiotics; D63.1 Anemia in chronic kidney disease; E11.40 Type 2 diabetes mellitus with diabetic neuropathy, unspecified; E11.621 Type 2 diabetes mellitus with foot ulcer; E11.22 Type 2 diabetes mellitus with diabetic chronic kidney disease; E11.628 Type 2 diabetes mellitus with other skin complications; K76.0 Fatty (change of) liver, not elsewhere classified; F31.9 Bipolar disorder, unspecified; E11.319 Type 2 diabetes mellitus with unspecified diabetic retinopathy without macular edema; I74.3 Embolism and thrombosis of arteries of the lower extremities; E66.01 Morbid (severe) obesity due to excess calories; Z89.422 Acquired absence of other left toe(s); Z79.4 Long term (current) use of insulin; I70.245 Atherosclerosis of native arteries of left leg with ulceration of other part of foot; L97.529 Non-pressure chronic ulcer of other part of left foot with unspecified severity; I77.1 Stricture of artery; N18.30 Chronic kidney disease, stage 3 unspecified; Z20.822 Contact with and (suspected) exposure to COVID-19; K76.9 Liver disease, unspecified; E87.5 Hyperkalemia; E78.5 Hyperlipidemia, unspecified; B35.9 Dermatophytosis, unspecified; B37.2 Candidiasis of skin and nail; B96.5 Pseudomonas (aeruginosa) (mallei) (pseudomallei) as the cause of diseases classified elsewhere; B95.61 Methicillin susceptible Staphylococcus aureus infection as the cause of diseases classified elsewhere; F41.9 Anxiety disorder, unspecified; G47.33 Obstructive sleep apnea (adult) (pediatric); I25.5 Ischemic cardiomyopathy; I08.1 Rheumatic disorders of both mitral and tricuspid valves; G89.29 Other chronic pain; M48.00 Spinal stenosis, site unspecified; M54.9 Dorsalgia, unspecified; I69.328 Other speech and language deficits following cerebral infarction; E07.9 Disorder of thyroid, unspecified; R32 Unspecified urinary incontinence; H54.3 Unqualified visual loss, both eyes; I25.10 Atherosclerotic heart disease of native coronary artery without angina pectoris; H91.90 Unspecified hearing loss, unspecified ear; I25.2 Old myocardial infarction; M81.0 Age-related osteoporosis without current pathological fracture; M19.90 Unspecified osteoarthritis, unspecified site; Z79.82 Long term (current) use of aspirin; Z79.890 Hormone replacement therapy; Z79.02 Long term (current) use of antithrombotics/antiplatelets; Z79.899 Other long term (current) drug therapy; Z95.5 Presence of coronary angioplasty implant and graft; Z90.710 Acquired absence of both cervix and uterus; Z87.42 Personal history of other diseases of the female genital tract; Z98.51 Tubal ligation status; Z98.42 Cataract extraction status, left eye; Z98.41 Cataract extraction status, right eye; Z87.39 Personal history of other diseases of the musculoskeletal system and connective tissue; Z86.69 Personal history of other diseases of the nervous system and sense organs; Z87.440 Personal history of urinary (tract) infections; Z98.890 Other specified postprocedural states; Z74.01 Bed confinement status; Z71.3 Dietary counseling and surveillance; Z91.041 Radiographic dye allergy status; Z91.040 Latex allergy status; Z88.8 Allergy status to other drugs, medicaments and biological substances; Z91.048 Other nonmedicinal substance allergy status; Z80.7 Family history of other malignant neoplasms of lymphoid, hematopoietic and related tissues; Z80.1 Family history of malignant neoplasm of trachea, bronchus and lung; Z80.8 Family history of malignant neoplasm of other organs or systems; Z82.49 Family history of ischemic heart disease and other diseases of the circulatory system; Z83.1 Family history of other infectious and parasitic diseases; Z83.79 Family history of other diseases of the digestive system
CPT/HCPCS: 36415; 37225; 37228; 37232; 71046; 80048; 80053; 82272; 82728; 83540; 83550; 83605; 83735; 83880; 85025; 85610; 85730; 86140; 86850; 86900; 86901; 86920; 87070; 87077; 87186; 87205; 87635; 93005; 94640; 94760; 96365; 96366; 96375; 96376; 99285

== ENCOUNTER 2021-09-19 14:42 | Inpatient (IN) | payer MEDICARE ==
--- NOTE | 2021-09-19 15:19 | ED ---
General Adult HPI - General Chief complaint: Weakness Stated complaint: Weakness Time Seen by Provider: 09/19/21 15:07 Source: patient, EMS, RN notes reviewed, old records reviewed Mode of arrival: EMS Limitations: no limitations - History of Present Illness Initial comments: This is a 71-year-old female alert and oriented 4 being transferred from [facility] and rehab increased weakness and worsening renal function. Patient was sent with a creatinine elevation from 3.8 on September 16 to 4.92 today. She is currently on antibiotics for a left foot first 3 toes surgical amputation. She states that she has had a decrease in oral intake and increasing weakness. -: days(s) (3) Severity scale (1-10): 1 (left foot) Improves with: none Worsens with: movement Associated Symptoms: loss of appetite, weakness Treatments Prior to Arrival: none - Related Data Home Medications Medication Instructions Recorded Confirmed Levothyroxine Sodium [Synthroid] 50 mcg PO DAILY@59908/21/17 09/19/21 Cetirizine HCl [Zyrtec] 10 mg PO DAILY PRN 05/06/20 09/19/21 Liothyronine Sodium [Cytomel] 5 mcg PO DAILY@0605/06/20 09/19/21 Sertraline HCl [Zoloft] 50 mg PO DAILY@79905/06/20 09/19/21 Docusate [Colace] 100 mg PO DAILY@1700 PRN 07/15/20 09/19/21 Cholecalciferol (Vitamin D3) 125 mcg PO MOWEFR@169902/18/21 09/19/21 [Vitamin D3 (5000 Iu)] ARIPiprazole [Abilify] 5 mg PO DAILY@0807/16/21 09/19/21 Diclofenac Sodium Gel [Voltaren 1 applic TOPICAL QID PRN 07/16/21 09/19/21 Gel] Nitroglycerin Sl Tabs [Nitrostat] 0.4 mg SL Q5M PRN 07/16/21 09/19/21 rOPINIRole HCL [Requip] 0.5 mg PO HS@2100 07/16/21 09/19/21 Albuterol Nebulized [Ventolin 2.5 mg INHALATION RT-Q4H PRN 08/15/21 09/19/21 Nebulized] Aspirin 81 mg PO DAILY@1700 08/15/21 09/19/21 Atorvastatin [Lipitor] 80 mg PO HS@209908/15/21 09/19/21 Ferrous Sulfate [Iron (65 MG 325 mg PO DAILY@0808/15/21 09/19/21 Elemental)] Furosemide [Lasix] 40 mg PO DAILY@0800 08/15/21 09/19/21 Gabapentin [Neurontin] 300 mg PO BID@0800,209908/15/21 09/19/21 INSULIN ASPART (NovoLOG) [NovoLOG 15 unit SQ TID@0700,1100,1630 08/15/21 09/19/21 (formulary)] Insulin Glargine [Lantus Vial] 65 unit SQ HS@212908/15/21 09/19/21 Liquacel 30 ml PO BID@0800,17008/15/21 09/19/21 Na Phos,M-B/Na Phos,Di-Ba [Fleet 133 ml RECTAL DAILY PRN 08/15/21 09/19/21 Adult] Saccharomyces Boulardii 250 mg PO DAILY@0800 08/15/21 09/19/21 [Saccharomycin Df] Ticagrelor [Brilinta] 90 mg PO BID@0800,169908/15/21 09/19/21 Valsartan [Diovan] 160 mg PO DAILY@0808/15/21 09/19/21 bisacodyL [Dulcolax] 10 mg RECTAL DAILY PRN 08/15/21 09/19/21 carvediloL [Coreg*] 12.5 mg PO BID@0800,17008/15/21 09/19/21 Calcium Carbonate [Tums] 500 mg PO TID@0800,1200,1700 09/19/21 09/19/21 Ceftazidime/Avibactam [Avycaz 2.5 0.94 gm IM BID@0800,209909/19/21 09/19/21 Gram Vial] DAPTOmycin [Cubicin] 500 mg IV Q48H 09/19/21 09/19/21 Magnesium Hydroxide [Milk of 7,200 mg PO DAILY PRN 09/19/21 09/19/21 Magnesia Concentrate] glyBURIDE [Diabeta] 5 mg PO DAILY@0800 09/19/21 09/19/21 Previous Rx's Medication Instructions Recorded Acetaminophen Tab [Tylenol] 650 mg PO Q6HR PRN tab 07/29/21 Allergies Allergy/AdvReac Type Severity Reaction Status Date / Time Iodinated Contrast Media Allergy Swelling, Verified 09/19/21 18:10 [Iodinated Contrast Media - SHORTNESS IV Dye] OF BREATH latex Allergy Rash/Hives Verified 09/19/21 18:10 talc Allergy Rash/Hives Verified 09/19/21 18:10 adhesive tape AdvReac blisters Verified 09/19/21 18:10 amlodipine AdvReac ankle Verified 09/19/21 18:10 swelling hydralazine AdvReac Diarrhea Verified 09/19/21 18:10 metal Allergy Rash/Hives Uncoded 09/19/21 14:54 Review of Systems ROS Statement: Those systems with pertinent positive or pertinent negative responses have been documented in the HPI. ROS Other: All systems not noted in ROS Statement are negative. Past Medical History Past Medical History: Coronary Artery Disease (CAD), CVA/TIA, Diabetes Mellitus, Eye Disorder, Hearing Disorder / Deafness, Hypertension, Liver Disease, Myocardial Infarction (AK), Osteoarthritis (OA), Sleep Apnea/CPAP/BIPAP, Syncope, Thyroid Disorder Additional Past Medical History / Comment(s): IDDM type II, neuropathy knees down bilaterally, ischemic cardiopmyopathy, 2009 small CVA with occasional word finding difficulty, R eye retinal bleed with some vision loss, bilateral diabetic retinopathy, fatty liver, chronic back pain, DDD< mild central canal stenosis, migraines, osteoporosis, UTI, bilateral tinnitis, BROCK no longer tolerates Cpap, benign thyroid nodules, CHI age 14, sycopal episodes as a child, sinus problems, wounds on feet Last Myocardial Infarction Date:: 07/2020 History of Any Multi-Drug Resistant Organisms: None Reported Past Surgical History: Breast Surgery, Heart Catheterization With Stent, Hysterectomy, Orthopedic Surgery, Tubal Ligation Additional Past Surgical History / Comment(s): PCI with stents in 06/2020 and 07/2020, several thyroid gland bxs, bilateral benign breast lumpectomies, D&c, bilateral feet 2 hammer toes each, R knee arthroscopy, low back injections, TTT, colonoscopies, bilateral cataract removals. Past Anesthesia/Blood Transfusion Reactions: No Reported Reaction, Motion Sickness Additional Past Anesthesia/Blood Transfusion Reaction / Comment(s): hypotension/memory problems Date of Last Stent Placement:: 2019 Past Psychological History: Anxiety, Bipolar, Depression Smoking Status: Never smoker Past Alcohol Use History: None Reported Past Drug Use History: None Reported - Past Family History Father Family Medical History: Cancer Additional Family Medical History / Comment(s): Father had lymphoma. He had LUNG, BONE, THROAT AND MOUTH CANCER Brother(s) Family Medical History: Myocardial Infarction (AK) Additional Family Medical History / Comment(s): Muscle Disease, Rheumatic fever at 2 years old Mother Family Medical History: Cancer Additional Family Medical History / Comment(s): lung cancer- mother. She at the age of 79yrs from esophageal valencia after radiation-unable to eat. Patient states "mother had aneurysm". General Exam Limitations: no limitations, physical limitation (Recent amputation, 3 toes on the left foot) General appearance: alert, in no apparent distress, obese Head exam: Present: atraumatic, normocephalic, normal inspection Eye exam: Present: PERRL. Absent: scleral icterus, conjunctival injection ENT exam: Present: normal exam, normal oropharynx, mucous membranes moist Neck exam: Present: normal inspection, full ROM. Absent: tenderness Respiratory exam: Present: rales (Bilateral lower lobes). Absent: respiratory distress, stridor, chest wall tenderness, accessory muscle use, decreased breath sounds Cardiovascular Exam: Present: regular rate, normal rhythm, normal heart sounds. Absent: systolic murmur, diastolic murmur, rubs, gallop, clicks GI/Abdominal exam: Present: soft, normal bowel sounds. Absent: distended, tenderness, guarding, rebound, rigid Left Foot/Toe exam: Present: tenderness (amputation first 3 digits left foot, wound vac and dressing intact) Neurovascular tendon exam: Present: pallor. Absent: abnormal cap refill, extremity cold to touch Gait: not tested/not observed Neurological exam: Present: alert, oriented X3 Psychiatric exam: Present: normal affect, normal mood Skin exam: Present: warm, dry, intact, pallor. Absent: rash, cyanosis, diaphoretic Course Vital Signs 09/19/21 09/19/21 09/19/21 14:43 17:32 19:59 Temperature 98.4 F Pulse Rate 70 68 69 Respiratory 22 18 20 Rate Blood Pressure 162/51 148/69 167/55 O2 Sat by Pulse 94 L 100 99 Oximetry 09/19/21 23:05 Temperature 98.5 F Pulse Rate 77 Respiratory 18 Rate Blood Pressure 174/86 O2 Sat by Pulse 99 Oximetry Medical Decision Making - Medical Decision Making Chest x-ray shows right-sided PICC line in place. There is minimal blunting of the costophrenic angle. There is a component of interstitial edema. There is no evidence of leukocytosis. Her hemoglobin is stable at 7.9. Her creatinine is elevated to 5.16 Her BNP is 28,900 she was given Lasix in the emergency room. X-ray of the left foot shows amputation of the fingers second and third metatarsals. There is no definitive signs of osteomyelitis.Wound VAC is intact. I did speak with Dr. Poole agrees to admit patient for congestive heart jeremie lure and acute kidney injury. Case was also discussed with Dr. Michel. - Lab Data Result diagrams: 09/19/21 15:33 09/19/21 15:33 Lab Results 09/19/21 09/19/21 09/19/21 Range/Units 15:33 15:33 15:33 WBC 8.6 (3.8-10.6) k/uL RBC 2.92 L (3.80-5.40) m/uL Hgb 7.9 L (11.4-16.0) gm/dL Hct 24.0 L (34.0-46.0) % MCV 82.4 (80.0-100.0) fL MCH 26.9 (25.0-35.0) pg MCHC 32.7 (31.0-37.0) g/dL RDW 16.4 H (11.5-15.5) % Plt Count 302 (150-450) k/uL MPV 8.4 Neutrophils % 79 % Lymphocytes % 10 % Monocytes % 4 % Eosinophils % 5 % Basophils % 1 % Neutrophils # 6.9 (1.3-7.7) k/uL Lymphocytes # 0.9 L (1.0-4.8) k/uL Monocytes # 0.3 (0-1.0) k/uL Eosinophils # 0.4 (0-0.7) k/uL Basophils # 0.0 (0-0.2) k/uL Poikilocytosis Slight Anisocytosis Slight PT 10.8 (9.0-12.0) sec INR 1.0 (<1.2) APTT 25.1 (22.0-30.0) sec Sodium (137-145) mmol/L Potassium (3.5-5.1) mmol/L Chloride (98-107) mmol/L Carbon Dioxide (22-30) mmol/L Anion Gap mmol/L BUN (7-17) mg/dL Creatinine (0.52-1.04) mg/dL Est GFR (CKD-EPI)AfAm (>60 ml/min/1.73 sqM) Est GFR (CKD-EPI)NonAf (>60 ml/min/1.73 sqM) Glucose (74-99) mg/dL Plasma Lactic Acid Carlos (0.7-2.0) mmol/L Calcium (8.4-10.2) mg/dL Phosphorus (2.5-4.5) mg/dL Magnesium (1.6-2.3) mg/dL Total Bilirubin (0.2-1.3) mg/dL AST (14-36) U/L ALT (4-34) U/L Alkaline Phosphatase (38-126) U/L Troponin I (0.000-0.034) ng/mL NT-Pro-B Natriuret Pep pg/mL Total Protein (6.3-8.2) g/dL Albumin (3.5-5.0) g/dL TSH (0.465-4.680) mIU/L Urine Color Light Yellow Urine Appearance Turbid H (Clear) Urine pH 5.0 (5.0-8.0) Ur Specific [place] 1.011 (1.001-1.035) Urine Protein 1+ H (Negative) Urine Glucose (UA) Negative (Negative) Urine Ketones Negative (Negative) Urine Blood Small H (Negative) Urine Nitrite Negative (Negative) Urine Bilirubin Negative (Negative) Urine Urobilinogen <2.0 (<2.0) mg/dL Ur Leukocyte Esterase Large H (Negative) Urine RBC 10 H (0-5) /hpf Urine WBC >182 H (0-5) /hpf Urine WBC Clumps Occasional H (None) /hpf Ur Squamous Epith Cells 2 (0-4) /hpf Urine Bacteria Occasional H (None) /hpf Urine Mucus Rare H (None) /hpf Urine Yeast (Budding) Many H (None) /hpf 09/19/21 09/19/21 09/19/21 Range/Units 15:33 15:33 15:33 WBC (3.8-10.6) k/uL RBC (3.80-5.40) m/uL Hgb (11.4-16.0) gm/dL Hct (34.0-46.0) % MCV (80.0-100.0) fL MCH (25.0-35.0) pg MCHC (31.0-37.0) g/dL RDW (11.5-15.5) % Plt Count (150-450) k/uL MPV Neutrophils % % Lymphocytes % % Monocytes % % Eosinophils % % Basophils % % Neutrophils # (1.3-7.7) k/uL Lymphocytes # (1.0-4.8) k/uL Monocytes # (0-1.0) k/uL Eosinophils # (0-0.7) k/uL Basophils # (0-0.2) k/uL Poikilocytosis Anisocytosis PT (9.0-12.0) sec INR (<1.2) APTT (22.0-30.0) sec Sodium 138 (137-145) mmol/L Potassium 4.3 (3.5-5.1) mmol/L Chloride 104 (98-107) mmol/L Carbon Dioxide 25 (22-30) mmol/L Anion Gap 9 mmol/L BUN 91 H (7-17) mg/dL Creatinine 5.16 H (0.52-1.04) mg/dL Est GFR (CKD-EPI)AfAm 9 (>60 ml/min/1.73 sqM) Est GFR (CKD-EPI)NonAf 8 (>60 ml/min/1.73 sqM) Glucose 183 H (74-99) mg/dL Plasma Lactic Acid Carlos 0.7 (0.7-2.0) mmol/L Calcium 10.0 (8.4-10.2) mg/dL Phosphorus 5.2 H (2.5-4.5) mg/dL Magnesium 2.5 H (1.6-2.3) mg/dL Total Bilirubin 0.3 (0.2-1.3) mg/dL AST 26 (14-36) U/L ALT 18 (4-34) U/L Alkaline Phosphatase 170 H (38-126) U/L Troponin I 0.032 (0.000-0.034) ng/mL NT-Pro-B Natriuret Pep pg/mL Total Protein 5.6 L (6.3-8.2) g/dL Albumin 2.6 L (3.5-5.0) g/dL TSH 1.920 (0.465-4.680) mIU/L Urine Color Urine Appearance (Clear) Urine pH (5.0-8.0) Ur Specific [place] (1.001-1.035) Urine Protein (Negative) Urine Glucose (UA) (Negative) Urine Ketones (Negative) Urine Blood (Negative) Urine Nitrite (Negative) Urine Bilirubin (Negative) Urine Urobilinogen (<2.0) mg/dL Ur Leukocyte Esterase (Negative) Urine RBC (0-5) /hpf Urine WBC (0-5) /hpf Urine WBC Clumps (None) /hpf Ur Squamous Epith Cells (0-4) /hpf Urine Bacteria (None) /hpf Urine Mucus (None) /hpf Urine Yeast (Budding) (None) /hpf 09/19/21 Range/Units 15:33 WBC (3.8-10.6) k/uL RBC (3.80-5.40) m/uL Hgb (11.4-16.0) gm/dL Hct (34.0-46.0) % MCV (80.0-100.0) fL MCH (25.0-35.0) pg MCHC (31.0-37.0) g/dL RDW (11.5-15.5) % Plt Count (150-450) k/uL MPV Neutrophils % % Lymphocytes % % Monocytes % % Eosinophils % % Basophils % % Neutrophils # (1.3-7.7) k/uL Lymphocytes # (1.0-4.8) k/uL Monocytes # (0-1.0) k/uL Eosinophils # (0-0.7) k/uL Basophils # (0-0.2) k/uL Poikilocytosis Anisocytosis PT (9.0-12.0) sec INR (<1.2) APTT (22.0-30.0) sec Sodium (137-145) mmol/L Potassium (3.5-5.1) mmol/L Chloride (98-107) mmol/L Carbon Dioxide (22-30) mmol/L Anion Gap mmol/L BUN (7-17) mg/dL Creatinine (0.52-1.04) mg/dL Est GFR (CKD-EPI)AfAm (>60 ml/min/1.73 sqM) Est GFR (CKD-EPI)NonAf (>60 ml/min/1.73 sqM) Glucose (74-99) mg/dL Plasma Lactic Acid Carlos (0.7-2.0) mmol/L Calcium (8.4-10.2) mg/dL Phosphorus (2.5-4.5) mg/dL Magnesium (1.6-2.3) mg/dL Total Bilirubin (0.2-1.3) mg/dL AST (14-36) U/L ALT (4-34) U/L Alkaline Phosphatase (38-126) U/L Troponin I (0.000-0.034) ng/mL NT-Pro-B Natriuret Pep 69636 pg/mL Total Protein (6.3-8.2) g/dL Albumin (3.5-5.0) g/dL TSH (0.465-4.680) mIU/L Urine Color Urine Appearance (Clear) Urine pH (5.0-8.0) Ur Specific [place] (1.001-1.035) Urine Protein (Negative) Urine Glucose (UA) (Negative) Urine Ketones (Negative) Urine Blood (Negative) Urine Nitrite (Negative) Urine Bilirubin (Negative) Urine Urobilinogen (<2.0) mg/dL Ur Leukocyte Esterase (Negative) Urine RBC (0-5) /hpf Urine WBC (0-5) /hpf Urine WBC Clumps (None) /hpf Ur Squamous Epith Cells (0-4) /hpf Urine Bacteria (None) /hpf Urine Mucus (None) /hpf Urine Yeast (Budding) (None) /hpf Disposition Clinical Impression: CHF (congestive heart failure), AYSHA (acute kidney injury) Disposition: ADMITTED IP TO THIS [facility] Decision Date: 09/19/21 Decision Time: 17:15
[2021-09-19 15:51] LABS: Anisocytosis Slight; Basophils % (A) 1 %; Eosinophils # (A) 0.4 k/uL (0-0.7); Eosinophils % (A) 5 %; HGB 7.9 gm/dL (11.4-16.0); Lymphocytes # (A) 0.9 k/uL (1.0-4.8); Lymphocytes % (A) 10 %; MCH 26.9 pg (25.0-35.0); MCHC 32.7 g/dL (31.0-37.0); MCV 82.4 fL (80.0-100.0); Mean Platelet Volume 8.4; Monocytes # (A) 0.3 k/uL (0-1.0); Monocytes % (A) 4 %; Neutrophils # (A) 6.9 k/uL (1.3-7.7); Neutrophils % (A) 79 %; Platelet Count 302 k/uL (150-450); Poikilocytosis Slight; RBC 2.92 m/uL (3.80-5.40); RDW 16.4 % (11.5-15.5); WBC 8.6 k/uL (3.8-10.6)
[2021-09-19 15:56] LABS: Appearance,Urine Turbid (Clear); Bacteria,Urine Occasional /hpf; Bilirubin,Urine Negative (Negative); Blood,Urine Small (Negative); Budding Yeast,Urine Many /hpf; Color,Urine Light Yellow; Glucose,Urine (UA) Negative (Negative); Ketones,Urine Negative (Negative); Leukocyte Esterase,Urine Large (Negative); Mucus,Urine Rare /hpf; Nitrite,Urine Negative (Negative); Protein,Urine 1+ (Negative); RBC,Urine 10 /hpf (0-5); Specific Gravity,Urine 1.011 (1.001-1.035); Squamous Epithelial Cell,Urine 2 /hpf (0-4); Urobilinogen,Urine <2.0 mg/dL (<2.0); WBC,Urine >182 /hpf (0-5)
[2021-09-19 16:05] LABS: Albumin 2.6 g/dL (3.5-5.0); Magnesium 2.5 mg/dL (1.6-2.3); Partial Thromboplastin Time 25.1 sec (22.0-30.0); Phosphorus 5.2 mg/dL (2.5-4.5); Potassium 4.3 mmol/L (3.5-5.1); Prothrombin Time 10.8 sec (9.0-12.0); Total Bilirubin 0.3 mg/dL (0.2-1.3); Total Protein 5.6 g/dL (6.3-8.2)
--- NOTE | 2021-09-19 16:38 | XR ---
EXAMINATION TYPE: XR chest 2V DATE OF EXAM: 09/19/2021 COMPARISON: Chest x-ray 08/18/2021 HISTORY: Weakness TECHNIQUE: Frontal and lateral views of the chest are obtained. FINDINGS: Right-sided PICC line is in place, distal tip is overlying superior vena cava. Interstitium is mildly increased. There is no focal air space opacity or pneumothorax seen, some minimal blunting of the costophrenic angle noted posteriorly is stable. The cardiac silhouette size is stable accoun ting for differences in technique. There is persistent elevation of the right hemidiaphragm. The oss eous structures are intact. IMPRESSION: There may be a component of interstitial edema, difficult to exclude small effusions
[2021-09-19] MEDS ORDERED: FUROSEMIDE 10 MG/ML 4 ML VIAL IV STA (17:08)
[2021-09-19] MEDS ORDERED: ACETAMINOPHEN TAB 325 MG TAB PO PRN ×2 (17:11→22:19)
[2021-09-19] MEDS ORDERED: NALOXONE 0.4 MG/ML 1 ML VIAL IV PRN (17:11)
--- NOTE | 2021-09-19 17:52 | XR ---
EXAMINATION TYPE: XR foot limited LT DATE OF EXAM: 09/19/2021 COMPARISON: NONE HISTORY: Wound TECHNIQUE: 2 views FINDINGS: There is amputation deformity of the forefoot at the level of the distal shaft of the first and second and third metatarsals. There is plantar calcaneal spurring. There is soft tissue swelling of the forefoot. There is a drain in the distal foot at the amputation site. There is some deformity of the distal shaft of the fifth metatarsal consistent with an old healed fracture. IMPRESSION: Amputation deformity. No definite sign of osteomyelitis.
[2021-09-19] MEDS ORDERED: ALBUTEROL NEBULIZED 2.5 MG/3 ML INHALATION PRN (22:19)
[2021-09-19] MEDS ORDERED: NITROGLYCERIN SL TABS 0.4 MG TAB SUBLINGUAL PRN (22:28)
[2021-09-19] MEDS ORDERED: DAPTOmycin 500 MG VIAL IV SCH (22:30)
[2021-09-19] MEDS ORDERED: bisacodyL 10 MG SUPP RECTAL PRN (23:00)
[2021-09-19 23:03] LABS: Glucose,Whole Blood 223 mg/dL (75-99)
--- NOTE | 2021-09-20 01:30 | US ---
EXAMINATION TYPE: US kidneys/renal and bladder DATE OF EXAM: 09/20/2021 COMPARISON: CT CLINICAL HISTORY: aysha. AYSHA. Poor historian. EXAM MEASUREMENTS: Right Kidney: 12.8 x 6.2 x 5.8 cm Left Kidney: 13.0 x 4.7 x 6.3 cm *Limited due to patient body habitus and overlying bowel gas. Right Kidney: Appears slightly enlarged. Complex area seen lower pole: 2.2 x 1.8 x 1.3 cm. Left Kidney: Appears enlarged. Bladder: Catheter in place. Unable to properly evaluate-bladder not fully distended. Bilateral Jets seen: No. Incidental finding: Spleen appears enlarged measuring 14 cm in length. Multiple hyperechoic foci seen throughout. Largest measures 0.4 x 0.4 x 0.5 cm. IMPRESSION: There are calcified splenic granulomata. No evidence of any suspicious solid renal mass. No renal obs truction.
[2021-09-20 03:22] LABS: Glucose,Whole Blood 223 mg/dL (75-99)
[2021-09-20 06:27] LABS: Glucose,Whole Blood 239 mg/dL (75-99)
[2021-09-20] MEDS: LEVOTHYROXINE 50 MCG TAB PO SCH (06:38)
[2021-09-20 07:02] LABS: Glucose,Whole Blood 229 mg/dL (75-99)
[2021-09-20] MEDS: INSULIN ASPART (NovoLOG) 100 UNIT/ML VIAL SQ SCH ×3 (07:27→17:51)
[2021-09-20] MEDS ORDERED: NON FORMULARY DRUG (Liquacel 30 ML) PO SCH (08:00)
[2021-09-20] MEDS ORDERED: SACCHAROMYCES BOULARDII 250 MG PO SCH (08:00)
[2021-09-20] MEDS ORDERED: GABAPENTIN 300 MG CAP PO SCH (08:00)
[2021-09-20 08:12] LABS: Glucose,Whole Blood 224 mg/dL (75-99)
[2021-09-20] MEDS ORDERED: FUROSEMIDE 10 MG/ML 4 ML VIAL IV STA (08:51)
--- NOTE | 2021-09-20 08:57 | P.NPCON ---
History of Present Illness - Reason for Consult acute renal failure - History of Present Illness Reason for consultation: Acute kidney injury History of present illness: Patient is a 71-year-old female seen in consultation for acute kidney injury. Patient's creatinine as of 08/29/2021 was 0.9. This admission was 4.92 and on repeat it was 5.16. Patient presents from an extended care facility with gene ralized weakness. Patient comes in with a chronic Briz[place] catheter. She has about 1 L of urine in the [place]riz[place]a bag as of now. She did receive 1 dose of IV Lasix on admission. She has history of chronic systolic CHF with ejection fraction of 40-45%. Her BNP was elevated at 28,000. She is undergone i ntervention the left lower extremity with angioplasty in July 2021. She also underwent stenting of the LAD in June 2021. Patient is maintained on antibiotics for foot infection. UA suggestive of UTI. No evidence of hypotension. She was taking valsartan outpatient which is currently held. Patient does have history of diabetes. Also receiving Fleet enemas outpatient. Patient is resting in bed. She only moans. Not a reliable historian. Vital signs are stable. HEENT: Head exam is unremarkable. LUNGS: Breath sounds decreased. HEART: Rate and Rhythm are regular. ABDOMEN: Soft, no distention. EXTREMITITES: Trace edema. No drainage. Past Medical History Past Medical History: Coronary Artery Disease (CAD), CVA/TIA, Diabetes Mellitus, Eye Disorder, Hearing Disorder / Deafness, Hypertension, Liver Disease, Myocardial Infarction ([place]), Osteoarthritis (OA), Sleep Apnea/CPAP/BIPAP, Syncope, Thyroid Disorder Additional Past Medical History / Comment(s): IDDM type II, neuropathy knees down bilaterally, ischemic cardiopmyopathy, 2009 small CVA with occasional word finding difficulty, R eye retinal bleed with some vision loss, bilateral diabetic retinopathy, fatty liver, chronic back pain, DDD< mild central canal st enosis, migraines, osteoporosis, UTI, bilateral tinnitis, BROCK no longer tolerates Cpap, benign thyroid nodules, CHI age 14, sycopal episodes as a child, sinus problems, wounds on feet Last Myocardial Infarction Date:: 07/2020 History of Any Multi-Drug Resistant Organisms: None Reported Past Surgical History: Breast Surgery, Heart Catheterization With Stent, Hysterectomy, Orthopedic Surgery, Tubal Ligation Additional Past Surgical History / Comment(s): PCI with stents in 06/2020 and 07/2020, several thyroid gland bxs, bilateral benign breast lumpectomies, D&c, bilateral feet 2 hammer toes each, R knee arthroscopy, low back injections, TTT, colonoscopies, bilateral cataract removals. Past Anesthesia/Blood Transfusion Reactions: No Reported Reaction, Motion Sickness Additional Past Anesthesia/Blood Transfusion Reaction / Comment(s): hypotension /memory problems Date of Last Stent Placement:: 2019 Past Psychological History: Anxiety, Bipolar, Depression Smoking Status: Never smoker Past Alcohol Use History: None Reported Past Drug Use History: None Reported - Past Family History Father Family Medical History: Cancer Additional Family Medical History / Comment(s): Father had lymphoma. He had LUNG, BONE, THROAT AND MOUTH CANCER Brother(s) Family Medical History: Myocardial Infarction ([place]) Additional Family Medical History / Comment(s): Muscle Disease, Rheumatic fever at 2 years old Mother Family Medical History: Cancer Additional Family Medical History / Comment(s): lung cancer- mother. She at the age of 79yrs from esophageal valencia after radiation-unable to eat. Patient states "mother had aneurysm". Medications and Allergies Home Medications Medication Instructions Recorded Confirmed Type Levothyroxine Sodium [Synthroid] 50 mcg PO DAILY@0600 08/21/17 09/19/21 History Cetirizine HCl [Zyrtec] 10 mg PO DAILY PRN 05/06/20 09/19/21 History Liothyronine Sodium [Cytomel] 5 mcg PO DAILY@0600 05/06/20 09/19/21 History Sertraline HCl [Zoloft] 50 mg PO DAILY@0800 05/06/20 09/19/21 History Docusate [Colace] 100 mg PO DAILY@1700 PRN 07/15/20 09/19/21 History Cholecalciferol (Vitamin D3) 125 mcg PO MOWEFR@1700 02/18/21 09/19/21 History [Vitamin D3 (5000 Iu)] ARIPiprazole [Abilify] 5 mg PO DAILY@0800 07/16/21 09/19/21 History Diclofenac Sodium Gel [Voltaren 1 applic TOPICAL QID PRN 07/16/21 09/19/21 History Gel] Nitroglycerin Sl Tabs [Nitrostat] 0.4 mg SL Q5M PRN 07/16/21 09/19/21 History rOPINIRole HCL [Requip] 0.5 mg PO HS@209907/16/21 09/19/21 History Acetaminophen Tab [Tylenol] 650 mg PO Q6HR PRN tab 07/29/21 09/19/21 Rx Albuterol Nebulized [Ventolin 2.5 mg INHALATION RT-Q4H PRN 08/15/21 09/19/21 History Nebulized] Aspirin 81 mg PO DAILY@169908/15/21 09/19/21 History Atorvastatin [Lipitor] 80 mg PO HS@209908/15/21 09/19/21 History Ferrous Sulfate [Iron (65 MG 325 mg PO DAILY@79908/15/21 09/19/21 History Elemental)] Furosemide [Lasix] 40 mg PO DAILY@79908/15/21 09/19/21 History Gabapentin [Neurontin] 300 mg PO BID@0800,209908/15/21 09/19/21 History INSULIN ASPART (NovoLOG) [NovoLOG 15 unit SQ TID@0700,1100,1630 08/15/21 09/19/21 History (formulary)] Insulin Glargine [Lantus Vial] 65 unit SQ HS@212908/15/21 09/19/21 History Liquacel 30 ml PO BID@0800,169908/15/21 09/19/21 History Na Phos,M-B/Na Phos,Di-Ba [Fleet 133 ml RECTAL DAILY PRN 08/15/21 09/19/21 History Adult] Saccharomyces Boulardii 250 mg PO DAILY@0808/15/21 09/19/21 History [Saccharomycin Df] Ticagrelor [Brilinta] 90 mg PO BID@0800,0 08/15/21 09/19/21 History Valsartan [Diovan] 160 mg PO DAILY@0808/15/21 09/19/21 History bisacodyL [Dulcolax] 10 mg RECTAL DAILY PRN 08/15/21 09/19/21 History carvediloL [Coreg*] 12.5 mg PO BID@0800,0 08/15/21 09/19/21 History Calcium Carbonate [Tums] 500 mg PO TID@0800,1200,1700 09/19/21 09/19/21 History Ceftazidime/Avibactam [Avycaz 2.5 0.94 gm IM BID@0800,2100 09/19/21 09/19/21 History Gram Vial] DAPTOmycin [Cubicin] 500 mg IV Q48H 09/19/21 09/19/21 History Magnesium Hydroxide [Milk of 7,200 mg PO DAILY PRN 09/19/21 09/19/21 History Magnesia Concentrate] glyBURIDE [Diabeta] 5 mg PO DAILY@0800 09/19/21 09/19/21 History Allergies Allergy/AdvReac Type Severity Reaction Status Date / Time Iodinated Contrast Media Allergy Swelling, Verified 09/19/21 18:10 [Iodinated Contrast Media - SHORTNESS IV Dye] OF BREATH latex Allergy Rash/Hives Verified 09/19/21 18:10 talc Allergy Rash/Hives Verified 09/19/21 18:10 adhesive tape AdvReac blisters Verified 09/19/21 18:10 amlodipine AdvReac ankle Verified 09/19/21 18:10 swelling hydralazine AdvReac Diarrhea Verified 09/19/21 18:10 metal Allergy Rash/Hives Uncoded 09/19/21 14:54 Physical Exam Vitals: Vital Signs Temp Pulse Resp BP Pulse Ox 09/20/21 08:11 98.7 F 79 16 144/45 97 09/20/21 06:49 80 20 186/61 98 09/20/21 04:31 77 18 169/52 97 09/20/21 03:20 90 20 171/69 93 L 09/20/21 02:00 72 20 94 L 09/19/21 23:05 98.5 F 77 18 174/86 99 09/19/21 19:59 69 20 167/55 99 09/19/21 17:32 68 18 148/69 100 09/19/21 14:43 98.4 F 70 22 162/51 94 L Intake and Output 09/19/21 09/20/21 09/20/21 22:59 06:59 14:59 Output Total 1500 Balance -1500 Output: Urine 1500 Results - Lab Results Most recent lab results Calcium 10.0 mg/dL (8.4-10.2) 09/19/21 15:33 Phosphorus 5.2 mg/dL (2.5-4.5) H 09/19/21 15:33 Magnesium 2.5 mg/dL (1.6-2.3) H 09/19/21 15:33 09/19/21 15:33 09/19/21 15:33 Assessment and Plan Plan: Assessment: 1. Acute kidney injury secondary to ATN secondary to infection. Rule out AIN from antibiotics. No evidence of hydronephrosis on ultrasound. Creatinine as of 08/29/2021 was 0.9. 2. Left foot infection with recent amputation of the first 3 toes. On antibiotics. 3. Acute on chronic systolic CHF with ejection fraction of 40-45%. 4. Peripheral arterial disease status post left lower extremity intervention in July 2021. 4. History of coronary disease status post LAD stenting in June 2021. 6. Diabetes mellitus. 7. UTI with chronic Briz[place]a catheter. Plan: Change Briz[place]a catheter and repeat UA and urine culture. Repeat Lasix 40 mg IV once today. Morning labs pending. Add Rocephin for UTI. Follow-up cultures. Avoid nephrotoxins. Stop Fleet enemas. Continue to hold valsartan. Check urine eosinophils and serologies. Decrease gabapentin dose. Continue to assess daily for need for renal replacement therapy. Thank you for the consultation. I will continue to follow the patient with you during her hospital stay.
[2021-09-20] MEDS ORDERED: NA PHOS,M-B/NA PHOS,DI-BA 133 ML ENEMA RECTAL PRN (09:00)
[2021-09-20] MEDS ORDERED: LORATADINE 10 MG TAB PO PRN (09:00)
[2021-09-20 10:28] LABS: African American GFR (CKD) 8.3 (60.0-200.0); Albumin 2.8 g/dL (3.8-4.9); Albumin/Globulin Ratio 1.04 (1.60-3.17); Anion Gap 14.5 mmol/L (4.00-12.00); BUN/Creat Ratio 16.14 Ratio (12.00-20.00); Blood Urea Nitrogen 88.3 mg/dL (9.0-27.0); Calcium 9.9 mg/dL (8.7-10.3); Carbon Dioxide 22.7 mmol/L (21.6-31.8); Globulin 2.7 g/dL (1.6-3.3); Magnesium 2.5 mg/dL (1.5-2.4); Non-African American GFR(CKD) 7.2 (60.0-200.0); Potassium 4.5 mmol/L (3.5-5.5); Total Bilirubin 0.3 mg/dL (0.30-1.20); Total Protein 5.6 g/dL (6.2-8.2)
[2021-09-20] MEDS: ARIPiprazole 5 MG TAB PO SCH (11:18)
[2021-09-20] MEDS: TICAGRELOR 90 MG TAB PO SCH ×3 (11:19→17:59)
[2021-09-20] MEDS: carvediloL 12.5 MG TAB PO SCH ×3 (11:19→17:59)
[2021-09-20] MEDS: CALCIUM CARBONATE 500 MG CHEWABLE PO SCH ×3 (11:19→17:51)
[2021-09-20] MEDS: FERROUS SULFATE 325 MG TAB PO SCH (11:19)
[2021-09-20] MEDS: SERTRALINE 50 MG TAB PO SCH (11:19)
[2021-09-20] MEDS: GABAPENTIN 300 MG CAP PO SCH (11:20)
[2021-09-20 11:31] LABS: Creatinine,Urine Random 95.6 mg/dL; Protein/Creatinine Ratio,Urine 1.841
[2021-09-20 12:15] LABS: Glucose,Whole Blood 166 mg/dL (75-99)
[2021-09-20] MEDS: DAPTOmycin 500 MG in SODIUM CHLORIDE 0.9% 50 ML IVPB SCH (12:37)
[2021-09-20 13:17] LABS: Amorphous Sediment,Urine Moderate /hpf; Appearance,Urine Turbid (Clear); Bilirubin,Urine Negative (Negative); Blood,Urine Large (Negative); Budding Yeast,Urine Many /hpf; Color,Urine Yellow; Glucose,Urine (UA) Negative (Negative); Ketones,Urine Negative (Negative); Leukocyte Esterase,Urine Large (Negative); Nitrite,Urine Negative (Negative); PH, Urine 5.5 (5.0-8.0); Protein,Urine 2+ (Negative); RBC,Urine >182 /hpf (0-5); Squamous Epithelial Cell,Urine 10 /hpf (0-4); Urobilinogen,Urine <2.0 mg/dL (<2.0); WBC,Urine >182 /hpf (0-5)
[2021-09-20 13:28] LABS: Specific Gravity,Urine 1.025 (1.001-1.035)
[2021-09-20] MEDS ORDERED: DOCUSATE 100 MG CAP PO PRN (17:00)
[2021-09-20 17:46] LABS: Glucose,Whole Blood 193 mg/dL (75-99)
[2021-09-20] MEDS: ASPIRIN 81 MG PO SCH ×2 (17:52→17:59)
[2021-09-20 21:05] LABS: Glucose,Whole Blood 226 mg/dL (75-99)
[2021-09-20] MEDS: ATORVASTATIN 80 MG TAB PO SCH (21:22)
[2021-09-20] MEDS: INSULIN DETEMIR (LEVEMIR) 100 UNIT/ML SYR SQ SCH (21:22)
--- NOTE | 2021-09-20 22:52 | P.CONS ---
History of Present Illness - Reason for Consult Consult date: 09/20/21 left foot infection Requesting physician: Aldair Poole - Chief Complaint weakness and worsening of kidney function x days - History of Present Illness History of present illness : Patient is 71-year-old female with a past medical history significant for left second toe pain status post amputation subsequently did have a further necrotic changes to the left foot status post amputation of the left first and second toe patient wound culture positive for drug-resistant Pseudomonas and MRSA for the patient was currently receiving daptomycin and Avycaz at the local senior care, patient was sent to the ER on the patient was noticed to have worsening of her kidney function patient seen to be slightly weak and lethargic patient denies having any chest pain shortness of breath or cough no nausea vomiting abdominal pain or any worsening pain to the left foot area on presentation to the hospital the patient was afebrile subsequently have low-grade fever 100 form height patient did have a normal white count patient creatinine has been 5.1 6 repeat is 5.5 liver enzymes are normal urine was positive which has been obtained from chronic indwelling [place] PCR was negative patient did have a chest x-ray component of interstitial edema patient did have x-rays of the left foot amputation deformity no definite signs of osteomyelitis patient has been continued daptomycin Rocephin has been added infectious disease was consulted for further management of antibiotic therapy Review of system: CONSTITUTIONAL: Positive for weakness along with the fever. EYES: No complaint. ENT: No complaint. RESPIRATORY: No complaint. CARDIOVASCULAR: No complaint. GENITOURINARY: No complaint. GASTROINTESTINAL: No complaint. MUSCULOSKELETAL as per history of present illness INTEGUMENTARY: No complaint. PSYCHOLOGIC: No complaint. ENDOCRINE: No complaint. NEUROLOGIC: As per history of present illness. Past medical history : Reviewed, documented below Past surgical history : Reviewed, documented below Social history: Reviewed, documented below Medications: Reviewed, as documented below EXAMINATION: Vital sigans= Reviewed and documented below GENERAL DESCRIPTION: Elderly female lying in bed, no distress. No tachypnea or accessory muscle of respiration use. HEENT: Shows Pallor , no scleral icterus. Oral mucous membrane is dry. NECK: Trachea central, no thyromegaly. LUNGS: Unlabored breathing. Decreased breath sound in the bases. No wheeze or crackle. HEART: S1, S2, regular rate and rhythm. ABDOMEN: Soft, no tenderness , guarding or rigidity EXTREMITIES: Left foot amputation site wound base with minimal slough tissue there is no surrounding swelling redness or any drainage. SKIN: No rash, no masses palpable. NEUROLOGICAL: The patient is sleepy but arousable LABS AND RADIOLOGY: Reviewed results see below Assessment : Patient is a 71-year-old female in this patient who did have a amputation of the left foot first ,second and third toe and local culture positive for multidrug-resistant Pseudomonas along with MRSA that has been treated with the daptomycin and Avycaz and both of these drugs are not nephrotoxic doses will be monitored by the pharmacist at the senior care and has been adjusted now presenting with worsening of the kidney function possible hypotension clinically doubt worsening infection to the left foot as the wound base looks clean with no cellulitis the patient did have a positive UA however this has been obtained from indwelling [place]riz[place]a catheter underlying colonization ultrasound excluded Plan: 1-change [place] catheter obtain urine culture from the new [place] 2-continue the daptomycin and Rocephin for now 3-local wound care to left foot with the Santyl followed by moist dressing change daily We will follow on clinical condition and cultures to further adjust medication if needed Thank you for this consultation we will follow the patient along with you Past Medical History Past Medical History: Coronary Artery Disease (CAD), CVA/TIA, Diabetes Mellitus, Eye Disorder, Hearing Disorder / Deafness, Hypertension, Liver Disease, Myocardial Infarction ([place]), Osteoarthritis ([place]), Sleep Apnea/CPAP/BIPAP, Syncope, Thyroid Disorder Additional Past Medical History / Comment(s): IDDM type II, neuropathy knees down bilaterally, ischemic cardiopmyopathy, 2009 small CVA with occasional word finding difficulty, R eye retinal bleed with some vision loss, bilateral diabetic retinopathy, fatty liver, chronic back pain, DDD< mild central canal stenosis, migraines, osteoporosis, UTI, bilateral tinnitis, BROCK no longer tolerates Cpap, benign thyroid nodules, CHI age 14, sycopal episodes as a child, sinus problems, wounds on feet Last Myocardial Infarction Date:: 07/2020 History of Any Multi-Drug Resistant Organisms: None Reported Past Surgical History: Breast Surgery, Heart Catheterization With Stent, Hysterectomy, Orthopedic Surgery, Tubal Ligation Additional Past Surgical History / Comment(s): PCI with stents in 06/2020 and 07/2020, several thyroid gland bxs, bilateral benign breast lumpectomies, D&c, bilateral feet 2 hammer toes each, R knee arthroscopy, low back injections, TTT, colonoscopies, bilateral cataract removals. Past Anesthesia/Blood Transfusion Reactions: No Reported Reaction, Motion Sick ness Additional Past Anesthesia/Blood Transfusion Reaction / Comm: hypotension/memory problems Date of Last Stent Placement:: 2019 Past Psychological History: Anxiety, Bipolar, Depression Smoking Status: Never smoker Past Alcohol Use History: None Reported Past Drug Use History: None Reported - Past Family History Father Family Medical History: Cancer Additional Family Medical History / Comment(s): Father had lymphoma. He had LUNG, BONE, THROAT AND MOUTH CANCER Brother(s) Family Medical History: Myocardial Infarction ([place]) Additional Family Medical History / Comment(s): Muscle Disease, Rheumatic fever at 2 years old Mother Family Medical History: Cancer Additional Family Medical History / Comment(s): lung cancer- mother. She at the age of 79yrs from esophageal valencia after radiation-unable to eat. Patient states "mother had aneurysm". Medications and Allergies Home Medications Medication Instructions Recorded Confirmed Type Levothyroxine Sodium [Synthroid] 50 mcg PO DAILY@0600 08/21/17 09/19/21 History Cetirizine HCl [Zyrtec] 10 mg PO DAILY PRN 05/06/20 09/19/21 History Liothyronine Sodium [Cytomel] 5 mcg PO DAILY@0600 05/06/20 09/19/21 History Sertraline HCl [Zoloft] 50 mg PO DAILY@0800 05/06/20 09/19/21 History Docusate [Colace] 100 mg PO DAILY@1700 PRN 07/15/20 09/19/21 History Cholecalciferol (Vitamin D3) 125 mcg PO MOWEFR@1700 02/18/21 09/19/21 History [Vitamin D3 (5000 Iu)] ARIPiprazole [Abilify] 5 mg PO DAILY@0800 07/16/21 09/19/21 History Diclofenac Sodium Gel [Voltaren 1 applic TOPICAL QID PRN 07/16/21 09/19/21 History Gel] Nitroglycerin Sl Tabs [Nitrostat] 0.4 mg SL Q5M PRN 07/16/21 09/19/21 History rOPINIRole HCL [Requip] 0.5 mg PO HS@2100 21/21 10/25/21 History Acetaminophen Tab [Tylenol] 650 mg PO Q6HR PRN tab 07/29/21 09/19/21 Rx Albuterol Nebulized [Ventolin 2.5 mg INHALATION RT-Q4H PRN 08/15/21 09/19/21 History Nebulized] Aspirin 81 mg PO DAILY@169908/15/21 09/19/21 History Atorvastatin [Lipitor] 80 mg PO HS@209908/15/21 09/19/21 History Ferrous Sulfate [Iron (65 MG 325 mg PO DAILY@0808/15/21 09/19/21 History Elemental)] Furosemide [Lasix] 40 mg PO DAILY@0808/15/21 09/19/21 History Gabapentin [Neurontin] 300 mg PO BID@0800,209908/15/21 09/19/21 History INSULIN ASPART (NovoLOG) [NovoLOG 15 unit SQ TID@0700,1100,1630 08/15/21 09/19/21 History (formulary)] Insulin Glargine [Lantus Vial] 65 unit SQ HS@212908/15/21 09/19/21 History Liquacel 30 ml PO BID@0800,1700 08/15/21 09/19/21 History Na Phos,M-B/Na Phos,Di-Ba [Fleet 133 ml RECTAL DAILY PRN 08/15/21 09/19/21 His tory Adult] Saccharomyces Boulardii 250 mg PO DAILY@0800 08/15/21 09/19/21 History [Saccharomycin Df] Ticagrelor [Brilinta] 90 mg PO BID@0800,1700 08/15/21 09/19/21 History Valsartan [Diovan] 160 mg PO DAILY@0800 08/15/21 09/19/21 History bisacodyL [Dulcolax] 10 mg RECTAL DAILY PRN 08/15/21 09/19/21 History carvediloL [Coreg*] 12.5 mg PO BID@0800,1700 08/15/21 09/19/21 History Calcium Carbonate [Tums] 500 mg PO TID@0800,1200,1700 09/19/21 09/19/21 History Ceftazidime/Avibactam [Avycaz 2.5 0.94 gm IM BID@0800,2100 09/19/21 09/19/21 History Gram Vial] DAPTOmycin [Cubicin] 500 mg IV Q48H 09/19/21 09/19/21 History Magnesium Hydroxide [Milk of 7,200 mg PO DAILY PRN 09/19/21 09/19/21 History Magnesia Concentrate] glyBURIDE [Diabeta] 5 mg PO DAILY@0800 09/19/21 09/19/21 History Allergies Allergy/AdvReac Type Severity Reaction Status Date / Time Iodinated Contrast Media Allergy Swelling, Verified 09/19/21 18:10 [Iodinated Contrast Media - SHORTNESS IV Dye] OF BREATH latex Allergy Rash/Hives Verified 09/19/21 18:10 talc Allergy Rash/Hives Verified 09/19/21 18:10 adhesive tape AdvReac blisters Verified 09/19/21 18:10 amlodipine AdvReac ankle Verified 09/19/21 18:10 swelling hydralazine AdvReac Diarrhea Verified 09/19/21 18:10 metal Allergy Rash/Hives Uncoded 09/19/21 14:54 Physical Exam Vitals: Vital Signs Temp Pulse Resp BP Pulse Ox 09/20/21 12:04 98.3 F 76 18 153/76 99 09/20/21 10:35 100 F H 75 18 152/63 97 09/20/21 08:11 98.7 F 79 16 144/45 97 09/20/21 06:49 80 20 186/61 98 09/20/21 04:31 77 18 169/52 97 09/20/21 03:20 90 20 171/69 93 L 09/20/21 02:00 72 20 94 L 09/19/21 23:05 98.5 F 77 18 174/86 99 09/19/21 19:59 69 20 167/55 99 09/19/21 17:32 68 18 148/69 100 09/19/21 14:43 98.4 F 70 22 162/51 94 L Intake and Output 09/19/21 09/20/21 09/20/21 22:59 06:59 14:59 Output Total 1500 Balance -1500 Output: Urine 1500 Results CBC & Chem 7: 09/19/21 15:33 09/20/21 05:29 Labs: Abnormal Lab Results - Last 24 Hours (Table) 09/19/21 09/19/21 09/19/21 Range/Units 15:33 15:33 15:33 RBC 2.92 L (3.80-5.40) m/uL Hgb 7.9 L (11.4-16.0) gm/dL Hct 24.0 L (34.0-46.0) % RDW 16.4 H (11.5-15.5) % Lymphocytes # 0.9 L (1.0-4.8) k/uL Anion Gap (4.00-12.00) mmol/L BUN 91 H (7-17) mg/dL Creatinine 5.16 H (0.52-1.04) mg/dL Est GFR (CKD-EPI)AfAm (60.0-200.0) Est GFR (CKD-EPI)NonAf (60.0-200.0) Glucose 183 H (74-99) mg/dL POC Glucose (mg/dL) (75-99) mg/dL Phosphorus 5.2 H (2.5-4.5) mg/dL Magnesium 2.5 H (1.6-2.3) mg/dL Alkaline Phosphatase 170 H (38-126) U/L Total Protein 5.6 L (6.3-8.2) g/dL Albumin 2.6 L (3.5-5.0) g/dL Albumin/Globulin Ratio (1.60-3.17) g/dL Urine Appearance Turbid H (Clear) Urine Protein 1+ H (Negative) Urine Blood Small H (Negative) Ur Leukocyte Esterase Large H (Negative) Urine RBC 10 H (0-5) /hpf Urine WBC >182 H (0-5) /hpf Urine WBC Clumps Occasional H (None) /hpf Urine Bacteria Occasional H (None) /hpf Urine Mucus Rare H (None) /hpf Urine Yeast (Budding) Many H (None) /hpf 09/19/21 09/20/21 09/20/21 Range/Units 22:59 03:19 05:29 RBC (3.80-5.40) m/uL Hgb (11.4-16.0) gm/dL Hct (34.0-46.0) % RDW (11.5-15.5) % Lymphocytes # (1.0-4.8) k/uL Anion Gap 14.50 H (4.00-12.00) mmol/L BUN 88.3 H (7-17) mg/dL Creatinine 5.5 H (0.52-1.04) mg/dL Est GFR (CKD-EPI)AfAm 8.3 L (60.0-200.0) Est GFR (CKD-EPI)NonAf 7.2 L (60.0-200.0) Glucose 214 H (74-99) mg/dL POC Glucose (mg/dL) 223 H 223 H (75-99) mg/dL Phosphorus (2.5-4.5) mg/dL Magnesium 2.5 H (1.6-2.3) mg/dL Alkaline Phosphatase 179 H (38-126) U/L Total Protein 5.6 L (6.3-8.2) g/dL Albumin 2.8 L (3.5-5.0) g/dL Albumin/Globulin Ratio 1.04 L (1.60-3.17) g/dL Urine Appearance (Clear) Urine Protein (Negative) Urine Blood (Negative) Ur Leukocyte Esterase (Negative) Urine RBC (0-5) /hpf Urine WBC (0-5) /hpf Urine WBC Clumps (None) /hpf Urine Bacteria (None) /hpf Urine Mucus (None) /hpf Urine Yeast (Budding) (None) /hpf 09/20/21 09/20/21 09/20/21 Range/Units 06:25 07:00 08:10 RBC (3.80-5.40) m/uL Hgb (11.4-16.0) gm/dL Hct (34.0-46.0) % RDW (11.5-15.5) % Lymphocytes # (1.0-4.8) k/uL Anion Gap (4.00-12.00) mmol/L BUN (7-17) mg/dL Creatinine (0.52-1.04) mg/dL Est GFR (CKD-EPI)AfAm (60.0-200.0) Est GFR (CKD-EPI)NonAf (60.0-200.0) Glucose (74-99) mg/dL POC Glucose (mg/dL) 239 H 229 H 224 H (75-99) mg/dL Phosphorus (2.5-4.5) mg/dL Magnesium (1.6-2.3) mg/dL Alkaline Phosphatase (38-126) U/L Total Protein (6.3-8.2) g/dL Albumin (3.5-5.0) g/dL Albumin/Globulin Ratio (1.60-3.17) g/dL Urine Appearance (Clear) Urine Protein (Negative) Urine Blood (Negative) Ur Leukocyte Esterase (Negative) Urine RBC (0-5) /hpf Urine WBC (0-5) /hpf Urine WBC Clumps (None) /hpf Urine Bacteria (None) /hpf Urine Mucus (None) /hpf Urine Yeast (Budding) (None) /hpf 09/20/21 Range/Units 12:13 RBC (3.80-5.40) m/uL Hgb (11.4-16.0) gm/dL Hct (34.0-46.0) % RDW (11.5-15.5) % Lymphocytes # (1.0-4.8) k/uL Anion Gap (4.00-12.00) mmol/L BUN (7-17) mg/dL Creatinine (0.52-1.04) mg/dL Est GFR (CKD-EPI)AfAm (60.0-200.0) Est GFR (CKD-EPI)NonAf (60.0-200.0) Glucose (74-99) mg/dL POC Glucose (mg/dL) 166 H (75-99) mg/dL Phosphorus (2.5-4.5) mg/dL Magnesium (1.6-2.3) mg/dL Alkaline Phosphatase (38-126) U/L Total Protein (6.3-8.2) g/dL Albumin (3.5-5.0) g/dL Albumin/Globulin Ratio (1.60-3.17) g/dL Urine Appearance (Clear) Urine Protein (Negative) Urine Blood (Negative) Ur Leukocyte Esterase (Negative) Urine RBC (0-5) /hpf Urine WBC (0-5) /hpf Urine WBC Clumps (None) /hpf Urine Bacteria (None) /hpf Urine Mucus (None) /hpf Urine Yeast (Budding) (None) /hpf Microbiology - Last 24 Hours (Table) 09/19/21 15:33 Urine Culture - Preliminary Urine,Voided
[2021-09-21 03:36] LABS: Glucose,Whole Blood 200 mg/dL (75-99)
[2021-09-21] MEDS: LEVOTHYROXINE 50 MCG TAB PO SCH (05:58)
[2021-09-21 07:15] LABS: Glucose,Whole Blood 158 mg/dL (75-99)
[2021-09-21] MEDS: INSULIN ASPART (NovoLOG) 100 UNIT/ML VIAL SQ SCH ×4 (07:15→16:51)
[2021-09-21] MEDS: carvediloL 12.5 MG TAB PO SCH ×2 (07:58→15:43)
[2021-09-21] MEDS: GABAPENTIN 300 MG CAP PO SCH (07:58)
[2021-09-21] MEDS: SERTRALINE 50 MG TAB PO SCH (07:58)
[2021-09-21] MEDS: FERROUS SULFATE 325 MG TAB PO SCH (07:58)
[2021-09-21] MEDS: ARIPiprazole 5 MG TAB PO SCH (07:58)
[2021-09-21] MEDS: CALCIUM CARBONATE 500 MG CHEWABLE PO SCH ×3 (07:58→15:43)
[2021-09-21 09:44] LABS: African American GFR (CKD) 7.4 (60.0-200.0); Albumin 2.7 g/dL (3.8-4.9); Anion Gap 15.4 mmol/L (4.00-12.00); BUN/Creat Ratio 15.43 Ratio (12.00-20.00); Blood Urea Nitrogen 92.6 mg/dL (9.0-27.0); Calcium 9.8 mg/dL (8.7-10.3); Carbon Dioxide 22.6 mmol/L (21.6-31.8); Globulin 2.7 g/dL (1.6-3.3); Magnesium 2.7 mg/dL (1.5-2.4); Non-African American GFR(CKD) 6.4 (60.0-200.0); Potassium 4.1 mmol/L (3.5-5.5); Total Bilirubin 0.2 mg/dL (0.30-1.20); Total Protein 5.4 g/dL (6.2-8.2)
[2021-09-21] MEDS: TICAGRELOR 90 MG TAB PO SCH ×2 (10:03→15:43)
[2021-09-21] MEDS ORDERED: SERTRALINE 50 MG TAB PO STA (10:25)
[2021-09-21] MEDS: PANTOPRAZOLE 40 MG/10 ML VIAL IVP SCH (11:15)
[2021-09-21 11:48] LABS: Glucose,Whole Blood 126 mg/dL (75-99)
--- NOTE | 2021-09-21 12:11 | P.PN ---
Subjective Patient is seen in follow-up for acute kidney injury with progressively worsening renal function over the last month. Creatinine 6.0 today. Resting in bed. Not a reliable historian. Nonoliguric. Vital signs are stable. General: The patient appeared well nourished and normally developed. HEENT: Head exam is unremarkable. LUNGS: Breath sounds decreased. HEART: Rate and Rhythm are regular. ABDOMEN: Soft, no distention. EXTREMITITES: Trace edema. Lower 70s dropped. Objective - Vital Signs Vital signs: Vital Signs Temp 97.6 F 09/21/21 07:07 Pulse 60 09/21/21 09:09 Resp 20 09/21/21 07:07 BP 143/62 09/21/21 07:07 Pulse Ox 98 09/21/21 09:09 Intake & Output 09/20/21 09/21/21 09/21/21 18:59 06:59 18:59 Intake Total 90 118 Output Total 1510 425 Balance -1420 -425 118 Weight 136.078 kg Intake: Oral 90 118 Output: Urine 1510 425 Uretheral (Brizuela) 10 Other: Voiding Method Indwelling Catheter # Bowel Movements 1 - Labs CBC & Chem 7: 09/19/21 15:33 09/21/21 06:43 Labs: Abnormal Lab Results - Last 24 Hours (Table) 09/20/21 09/20/21 09/20/21 Range/Units 10:30 12:13 17:45 Anion Gap (4.00-12.00) mmol/L BUN (9.0-27.0) mg/dL Creatinine (0.6-1.5) mg/dL Est GFR (CKD-EPI)AfAm (60.0-200.0) Est GFR (CKD-EPI)NonAf (60.0-200.0) Glucose (70-110) mg/dL POC Glucose (mg/dL) 166 H 193 H (75-99) mg/dL Magnesium (1.5-2.4) mg/dL Total Bilirubin (0.30-1.20) mg/dL Alkaline Phosphatase (41-126) U/L Total Protein (6.2-8.2) g/dL Albumin (3.8-4.9) g/dL Albumin/Globulin Ratio (1.60-3.17) g/dL Urine Appearance Turbid H (Clear) Urine Protein 2+ H (Negative) Urine Blood Large H (Negative) Ur Leukocyte Esterase Large H (Negative) Urine RBC >182 H (0-5) /hpf Urine WBC >182 H (0-5) /hpf Urine WBC Clumps Many H (None) /hpf Ur Squamous Epith Cells 10 H (0-4) /hpf Amorphous Sediment Moderate H (None) /hpf Urine Yeast (Budding) Many H (None) /hpf 09/20/21 09/21/21 09/21/21 Range/Units 20:54 03:34 06:43 Anion Gap 15.40 H (4.00-12.00) mmol/L BUN 92.6 H (9.0-27.0) mg/dL Creatinine 6.0 H (0.6-1.5) mg/dL Est GFR (CKD-EPI)AfAm 7.4 L (60.0-200.0) Est GFR (CKD-EPI)NonAf 6.4 L (60.0-200.0) Glucose 147 H (70-110) mg/dL POC Glucose (mg/dL) 226 H 200 H (75-99) mg/dL Magnesium 2.7 H (1.5-2.4) mg/dL Total Bilirubin 0.20 L (0.30-1.20) mg/dL Alkaline Phosphatase 148 H (41-126) U/L Total Protein 5.4 L (6.2-8.2) g/dL Albumin 2.7 L (3.8-4.9) g/dL Albumin/Globulin Ratio 1.00 L (1.60-3.17) g/dL Urine Appearance (Clear) Urine Protein (Negative) Urine Blood (Negative) Ur Leukocyte Esterase (Negative) Urine RBC (0-5) /hpf Urine WBC (0-5) /hpf Urine WBC Clumps (None) /hpf Ur Squamous Epith Cells (0-4) /hpf Amorphous Sediment (None) /hpf Urine Yeast (Budding) (None) /hpf 09/21/21 09/21/21 Range/Units 07:11 11:47 Anion Gap (4.00-12.00) mmol/L BUN (9.0-27.0) mg/dL Creatinine (0.6-1.5) mg/dL Est GFR (CKD-EPI)AfAm (60.0-200.0) Est GFR (CKD-EPI)NonAf (60.0-200.0) Glucose (70-110) mg/dL POC Glucose (mg/dL) 158 H 126 H (75-99) mg/dL Magnesium (1.5-2.4) mg/dL Total Bilirubin (0.30-1.20) mg/dL Alkaline Phosphatase (41-126) U/L Total Protein (6.2-8.2) g/dL Albumin (3.8-4.9) g/dL Albumin/Globulin Ratio (1.60-3.17) g/dL Urine Appearance (Clear) Urine Protein (Negative) Urine Blood (Negative) Ur Leukocyte Esterase (Negative) Urine RBC (0-5) /hpf Urine WBC (0-5) /hpf Urine WBC Clumps (None) /hpf Ur Squamous Epith Cells (0-4) /hpf Amorphous Sediment (None) /hpf Urine Yeast (Budding) (None) /hpf Microbiology - Last 24 Hours (Table) 09/20/21 10:30 Urine Culture - Preliminary Urine,Catheterized Assessment and Plan Plan: Assessment: 1. Acute kidney injury secondary to ATN secondary to infection. Urine eosinophils negative. No evidence of hydronephrosis on ultrasound. Creatinine as of 08/29/2021 was 0.9 - 6.0 today. 2. Left foot infection with recent amputation of the first 3 toes. On antibiotics. 3. Acute on chronic systolic CHF with ejection fraction of 40-45%. 4. Peripheral arterial disease status post left lower extremity intervention in July 2021. 4. History of coronary disease status post LAD stenting in June 2021. 6. Diabetes mellitus. 7. UTI with chronic Brizuela catheter. Plan: Follow-up cultures. Avoid nephrotoxins. Stopped Fleet enemas. Continue to hold valsartan. Follow-up serologies. Discussed case with patient's sister who is the power of lead caregiver. Patient is not mobile and is an F resident. Quality of life is quite poor. She would like to speak with hospice as well as the primary attending first before proceeding with renal replacement therapy at this time. Nurse notified. Continue to assess daily. Overall prognosis guarded. Patient is not a good candidate for long-term renal replacement therapy
[2021-09-21 14:03] LABS: Protein, Total 5.8 g/dL (6.2-8.2)
[2021-09-21 14:31] LABS: C-ANCA <1:20 Titer (<1:20)
[2021-09-21 14:45] VITALS: BMI 48.4
[2021-09-21 14:48] LABS: Hepatitis A Antibody IgM Nonreactive (Nonreactive); Hepatitis B Core IgM Nonreactive (Nonreactive); Hepatitis B Surface Antigen Nonreactive (Nonreactive); Hepatitis C IgG Antibody Nonreactive (Nonreactive)
[2021-09-21] MEDS: ASPIRIN 81 MG PO SCH (15:43)
[2021-09-21 16:47] LABS: Glucose,Whole Blood 111 mg/dL (75-99)
[2021-09-21] MEDS ORDERED: CHOLECALCIFEROL 25 MCG (1000 IU) TABLET PO SCH (17:00)
--- NOTE | 2021-09-21 18:37 | PN ---
PROGRESS NOTE DATE OF SERVICE: 09/21/2021 REASON FOR FOLLOWUP: Left foot wound and possible UTI. INTERVAL HISTORY: The patient is afebrile. The patient seems slightly more awake and alert today. The patient denies having any chest pain, shortness of breath or cough. No abdominal pain or pain to the left foot area. PHYSICAL EXAMINATION: Blood pressure is 153/75 with a pulse of 55, temperature 97.9. She is 100% on 4 L nasal cannula. General description is an elderly female lying in bed in no distress. RESPIRATORY SYSTEM: Unlabored breathing. Decreased intensity of breath sounds. No wheeze. HEART: S1, S2. Regular rate and rhythm. ABDOMEN: Soft. No tenderness. Left foot is currently dressed. No obvious drainage on the dressing. LABS: BUN of 92, creatinine 6.0. Urine culture negative. DIAGNOSTIC IMPRESSION AND PLAN: 1. Patient with left foot gangrene in this patient who is status post left foot first and second toe amputation with resultant wound culture positive for MRSA. 2. Resistant Pseudomonas patient daptomycin and Avycaz. None of them are nephrotoxic. The patient did have worsening of his kidney function, for which the patient was admitted to hospital, being monitored by the nephrology services. She also had positive UTI, currently covered with daptomycin and Rocephin; continue while monitoring clinical course closely. Family at the bedside. Their questions were answered. MMODL / IJN: [id number] /
[2021-09-21 18:59] LABS: DNA Double-Stranded Indetermin (NEGATIVE)
[2021-09-21 20:28] LABS: Glucose,Whole Blood 145 mg/dL (75-99)
[2021-09-21] MEDS: ATORVASTATIN 80 MG TAB PO SCH (20:54)
[2021-09-21] MEDS: INSULIN DETEMIR (LEVEMIR) 100 UNIT/ML SYR SQ SCH (20:54)
--- NOTE | 2021-09-21 23:23 | P.HPIM ---
History of Present Illness H&P Date: 09/21/21 Chief Complaint: AYSHA Goyal is a 71 yo F with PMH CAD s/p stenting, PAD, osteomyelitis and amputation of L 2nd and 3rd toes approximately 1 month ago, CKD, T2DM who presen matti to the ED from her long term with increasing weakness and was found to be in acute renal failure. After her amputation she was discharged on daptomycin and avycaz, pt continued on these abx and states she had not been moving much. On her inital presentation pt hypertensive, WBC 8.6k, Hgb 7.9, Cr 5.16. Abd US no renal obstruction, UA with negative nitrite, pos bacteria. Review of Systems All systems: negative Constitutional: Reports chills, Reports malaise, Reports weakness, Denies fever Eyes: denies blurred vision, denies pain Ears, nose, mouth and throat: Denies headache, Denies sore throat Cardiovascular: Denies chest pain, Denies shortness of breath Respiratory: Denies cough Gastrointestinal: Denies abdominal pain, Denies diarrhea, Denies nausea, Denies vomiting Genitourinary: Denies dysuria, Denies hematuria Musculoskeletal: Denies myalgias Integumentary: Denies pruritus, Denies rash Neurological: Denies numbness, Denies weakness Psychiatric: Denies anxiety, Denies depression Endocrine: Denies fatigue, Denies weight change Past Medical History Past Medical History: Coronary Artery Disease (CAD), CVA/TIA, Diabetes Mellitus, Eye Disorder, Hearing Disorder / Deafness, Hypertension, Liver Disease, Myocardial Infarction (MT), Osteoarthritis (OA), Sleep Apnea/CPAP/BIPAP, Syncope, Thyroid Disorder Additional Past Medical History / Comment(s): IDDM type II, neuropathy knees down bilaterally, ischemic cardiopmyopathy, 2009 small CVA with occasional word finding difficulty, R eye retinal bleed with some vision loss, bilateral diabetic retinopathy, fatty liver, chronic back pain, DDD< mild central canal stenosis, migraines, osteoporosis, UTI, bilateral tinnitis, BROCK no longer tolerates Cpap, benign thyroid nodules, CHI age 14, sycopal episodes as a child, sinus problems, wounds on feet Last Myocardial Infarction Date:: 07/2020 History of Any Multi-Drug Resistant Organisms: None Reported Past Surgical History: Breast Surgery, Heart Catheterization With Stent, Hysterectomy, Orthopedic Surgery, Tubal Ligation Additional Past Surgical History / Comment(s): PCI with stents in 06/2020 and 07/2020, several thyroid gland bxs, bilateral benign breast lumpectomies, D&c, bilateral feet 2 hammer toes each, R knee arthroscopy, low back injections, TTT, colonoscopies, bilateral cataract removals. Past Anesthesia/Blood Transfusion Reactions: No Reported Reaction, Motion Sickness Additional Past Anesthesia/Blood Transfusion Reaction / Comment(s): hypotension/memory problems Date of Last Stent Placement:: 2019 Past Psychological History: Anxiety, Bipolar, Depression Additional Psychological History / Comment(s): Patient resides at [facility] with her Smoking Status: Never smoker Past Alcohol Use History: None Reported Past Drug Use History: None Reported - Past Family History Father Family Medical History: Cancer Additional Family Medical History / Comment(s): Father had lymphoma. He had LUNG, BONE, THROAT AND MOUTH CANCER Brother(s) Family Medical History: Myocardial Infarction (MT) Additional Family Medical History / Comment(s): Muscle Disease, Rheumatic fever at 2 years old Mother Family Medical History: Cancer Additional Family Medical History / Comment(s): lung cancer- mother. She at the age of 79yrs from esophageal valencia after radiation-unable to eat. Patient states "mother had aneurysm". Medications and Allergies Home Medications Medication Instructions Recorded Confirmed Type Levothyroxine Sodium [Synthroid] 50 mcg PO DAILY@0600 08/21/17 09/19/21 History Cetirizine HCl [Zyrtec] 10 mg PO DAILY PRN 05/06/20 09/19/21 History Liothyronine Sodium [Cytomel] 5 mcg PO DAILY@0600 05/06/20 09/19/21 History Sertraline HCl [Zoloft] 50 mg PO DAILY@0800 05/06/20 09/19/21 History Docusate [Colace] 100 mg PO DAILY@1700 PRN 07/15/20 09/19/21 History Cholecalciferol (Vitamin D3) 125 mcg PO MOWEFR@1700 02/18/21 09/19/21 History [Vitamin D3 (5000 Iu)] ARIPiprazole [Abilify] 5 mg PO DAILY@0800 07/16/21 09/19/21 History Diclofenac Sodium Gel [Voltaren 1 applic TOPICAL QID PRN 07/16/21 09/19/21 History Gel] Nitroglycerin Sl Tabs [Nitrostat] 0.4 mg SL Q5M PRN 07/16/21 09/19/21 History rOPINIRole HCL [Requip] 0.5 mg PO HS@209907/16/21 09/19/21 History Acetaminophen Tab [Tylenol] 650 mg PO Q6HR PRN tab 07/29/21 09/19/21 Rx Albuterol Nebulized [Ventolin 2.5 mg INHALATION RT-Q4H PRN 08/15/21 09/19/21 History Nebulized] Aspirin 81 mg PO DAILY@169908/15/21 09/19/21 History Atorvastatin [Lipitor] 80 mg PO HS@209908/15/21 09/19/21 History Ferrous Sulfate [Iron (65 MG 325 mg PO DAILY@79908/15/21 09/19/21 History Elemental)] Furosemide [Lasix] 40 mg PO DAILY@79908/15/21 09/19/21 History Gabapentin [Neurontin] 300 mg PO BID@0800,209908/15/21 09/19/21 History INSULIN ASPART (NovoLOG) [NovoLOG 15 unit SQ TID@0700,1100,1630 08/15/21 History (formulary)] Insulin Glargine [Lantus Vial] 65 unit SQ HS@212908/15/21 09/19/21 History Liquacel 30 ml PO BID@0800,169908/15/21 09/19/21 History Na Phos,M-B/Na Phos,Di-Ba [Fleet 133 ml RECTAL DAILY PRN 08/15/21 09/19/21 History Adult] Saccharomyces Boulardii 250 mg PO DAILY@0808/15/21 09/19/21 History [Saccharomycin Df] Ticagrelor [Brilinta] 90 mg PO BID@0800,169908/15/21 09/19/21 History Valsartan [Diovan] 160 mg PO DAILY@0800 08/15/21 09/19/21 History bisacodyL [Dulcolax] 10 mg RECTAL DAILY PRN 08/15/21 09/19/21 History carvediloL [Coreg*] 12.5 mg PO BID@0800,1700 08/15/21 09/19/21 History Calcium Carbonate [Tums] 500 mg PO TID@0800,1200,1700 09/19/21 09/19/21 History Ceftazidime/Avibactam [Avycaz 2.5 0.94 gm IM BID@0800,2100 09/19/21 09/19/21 History Gram Vial] DAPTOmycin [Cubicin] 500 mg IV Q48H 09/19/21 09/19/21 History Magnesium Hydroxide [Milk of 7,200 mg PO DAILY PRN 09/19/21 09/19/21 History Magnesia Concentrate] glyBURIDE [Diabeta] 5 mg PO DAILY@0800 09/19/21 09/19/21 History Allergies Allergy/AdvReac Type Severity Reaction Status Date / Time Iodinated Contrast Media Allergy Swelling, Verified 09/19/21 18:10 [Iodinated Contrast Media - SHORTNESS IV Dye] OF BREATH latex Allergy Rash/Hives Verified 09/19/21 18:10 talc Allergy Rash/Hives Verified 09/19/21 18:10 adhesive tape AdvReac blisters Verified 09/19/21 18:10 amlodipine AdvReac ankle Verified 09/19/21 18:10 swelling hydralazine AdvReac Diarrhea Verified 09/19/21 18:10 metal Allergy Rash/Hives Uncoded 09/19/21 14:54 Physical Exam Vitals: Vital Signs Temp Pulse Pulse Resp BP BP Pulse Ox 09/21/21 19:00 97.6 F 109 H 17 100/58 100 09/21/21 14:00 97.9 F 65 20 153/75 100 09/21/21 09:09 60 98 09/21/21 07:07 97.6 F 61 20 143/62 99 09/21/21 03:14 98.3 F 53 L 16 98 09/21/21 02:50 98.0 F 72 20 151/67 99 09/21/21 00:32 85 16 143/51 94 L Intake and Output 09/21/21 09/21/21 09/22/21 14:59 22:59 06:59 Intake Total 168 Output Total 200 Balance 168 -200 Intake: Intake, IV Titration 50 Amount cefTRIAXone 1 gm In 50 Sodium Chloride 0.9% 50 ml @ 100 mls/hr IVPB Q24HR [facility] Rx#:[id number] Oral 118 Output: Urine 200 Other: Voiding Method Indwelling Catheter Indwelling Catheter Weight 136.078 kg General: elderly female in NAD. Vitals reviewed Eyes: PERRL, EOMI, conjunctiva normal HENT: normocephalic, mucus membranes moist Neck: supple, no JVD Lungs: normal respiratory effort, no wheezes or rales CV: Regular rate and rhythm, no murmur. Peripheral pulses 2+ Abdomen: soft, nondistended, no organomegaly Lymph: no cervical or axillary LAD Skin: warm and dry. Neuro: A&Ox3, depressed mood and affect Results CBC & Chem 7: 09/19/21 15:33 09/21/21 06:43 Labs: Abnormal Lab Results - Last 24 Hours (Table) 09/20/21 09/21/21 09/21/21 Range/Units 05:29 03:34 06:43 Anion Gap 15.40 H (4.00-12.00) mmol/L BUN 92.6 H (9.0-27.0) mg/dL Creatinine 6.0 H (0.6-1.5) mg/dL Est GFR (CKD-EPI)AfAm 7.4 L (60.0-200.0) Est GFR (CKD-EPI)NonAf 6.4 L (60.0-200.0) Glucose 147 H (70-110) mg/dL POC Glucose (mg/dL) 200 H (75-99) mg/dL Magnesium 2.7 H (1.5-2.4) mg/dL Total Bilirubin 0.20 L (0.30-1.20) mg/dL Alkaline Phosphatase 148 H (41-126) U/L Total Protein 5.4 L (6.2-8.2) g/dL Total Protein (PEP) 5.8 L (6.2-8.2) g/dL Albumin 2.7 L (3.8-4.9) g/dL Albumin/Globulin Ratio 1.00 L (1.60-3.17) g/dL NENA Screen POSITIVE A (NEGATIVE) Double Strand DNA Ab Indetermin A (NEGATIVE) 09/21/21 09/21/21 09/21/21 Range/Units 07:11 11:47 16:46 Anion Gap (4.00-12.00) mmol/L BUN (9.0-27.0) mg/dL Creatinine (0.6-1.5) mg/dL Est GFR (CKD-EPI)AfAm (60.0-200.0) Est GFR (CKD-EPI)NonAf (60.0-200.0) Glucose (70-110) mg/dL POC Glucose (mg/dL) 158 H 126 H 111 H (75-99) mg/dL Magnesium (1.5-2.4) mg/dL Total Bilirubin (0.30-1.20) mg/dL Alkaline Phosphatase (41-126) U/L Total Protein (6.2-8.2) g/dL Total Protein (PEP) (6.2-8.2) g/dL Albumin (3.8-4.9) g/dL Albumin/Globulin Ratio (1.60-3.17) g/dL NENA Screen (NEGATIVE) Double Strand DNA Ab (NEGATIVE) 09/21/21 Range/Units 20:27 Anion Gap (4.00-12.00) mmol/L BUN (9.0-27.0) mg/dL Creatinine (0.6-1.5) mg/dL Est GFR (CKD-EPI)AfAm (60.0-200.0) Est GFR (CKD-EPI)NonAf (60.0-200.0) Glucose (70-110) mg/dL POC Glucose (mg/dL) 145 H (75-99) mg/dL Magnesium (1.5-2.4) mg/dL Total Bilirubin (0.30-1.20) mg/dL Alkaline Phosphatase (41-126) U/L Total Protein (6.2-8.2) g/dL Total Protein (PEP) (6.2-8.2) g/dL Albumin (3.8-4.9) g/dL Albumin/Globulin Ratio (1.60-3.17) g/dL NENA Screen (NEGATIVE) Double Strand DNA Ab (NEGATIVE) Microbiology - Last 24 Hours (Table) 09/20/21 10:30 Urine Culture - Preliminary Urine,Catheterized Thrombosis Risk Factor Assmnt - Choose All That Apply Any of the Below Risk Factors Present?: Yes Each Factor Represents 1 point: Medical pt on bed rest, Obesity (BMI >25), Swollen legs (current) Each Risk Factor Represents 2 Points: Age 61-74 years Each Risk Factor Represents 3 Points: History of DVT/PE Thrombosis Risk Factor Assessment Total Risk Factor Score: 8 Thrombosis Risk Factor Assessment Level: High Risk Assessment and Plan Plan: 1. Acute renal failure on CKD stage 3. Nephrology consult. Pt given lasix, continue to closly monitor renal function. Consider HD per nephrology 2. Osteomyelitis of L metatarsal. Continue with home daptomycin, renally dose. ID consulted 3. CAD and PAD. continue lipitor, brillinta 4. T2DM. Continue lantus, accucheck, sliding scale
[2021-09-22] MEDS ORDERED: INSULIN DETEMIR (LEVEMIR) 100 UNIT/ML SYR SQ SCH (04:35)
[2021-09-22] MEDS: LEVOTHYROXINE 50 MCG TAB PO SCH (05:29)
[2021-09-22 06:50] LABS: Glucose,Whole Blood 79 mg/dL (75-99)
[2021-09-22] MEDS: INSULIN ASPART (NovoLOG) 100 UNIT/ML VIAL SQ SCH ×3 (08:06→18:50)
[2021-09-22] MEDS: PANTOPRAZOLE 40 MG/10 ML VIAL IVP SCH (08:09)
[2021-09-22] MEDS: FERROUS SULFATE 325 MG TAB PO SCH (08:12)
[2021-09-22] MEDS: GABAPENTIN 300 MG CAP PO SCH (08:12)
[2021-09-22] MEDS: TICAGRELOR 90 MG TAB PO SCH ×2 (08:12→15:48)
[2021-09-22] MEDS: DAPTOmycin 500 MG in SODIUM CHLORIDE 0.9% 50 ML IVPB SCH (08:12)
[2021-09-22] MEDS: CALCIUM CARBONATE 500 MG CHEWABLE PO SCH ×3 (08:12→15:48)
[2021-09-22] MEDS: carvediloL 12.5 MG TAB PO SCH ×2 (08:12→15:48)
[2021-09-22] MEDS: SERTRALINE 100 MG TAB PO SCH (08:12)
[2021-09-22] MEDS: ARIPiprazole 5 MG TAB PO SCH (08:12)
--- NOTE | 2021-09-22 10:18 | P.CRDCN ---
History of Present Illness Consult date: 09/22/21 History of present illness: HISTORY OF PRESENT ILLNESS: This is a 71-year-old female with a past medical history significant for coronary artery disease with recent stenting, ischemic cardiomyopathy, diabetes, hypertension, chronic kidney disease, and congestive heart failure. Patient follows in the office with Dr. Acevedo. We have been asked to see the patient in consultation for CHF. Patient examined at the bedside. Patient was admitted to the hospital from [facility] secondary to increased weakness. Patient was found to be in acute renal failure with a creatinine of 5. Patient recently underwent left toe amputation on 07/25/21 secondary to infection and apparently has been receiving antibiotics since that time. The patient currently reports shortness of breath. She does appear comfortable at rest at the time of examination. She denies chest pain or pressure. There has been some discussion regarding possible hospice care. EKG reveals sinus mechanism with no signs of acute ischemia Chest xray there may be a component of interstitial edema, difficult to exclude small effusions Laboratory data: WBC 8.6. Hemoglobin 7.9. Platelet count 302. Sodium 141. Potassium 4.1. BUN 92.6. Creatinine 6.0. ProBNP 28,900 Current home cardiac medications include carvedilol 12.5 mg twice a day, Brilinta 90 mg twice a day, Lasix 40 mg daily, valsartan 160 mg daily, Lipitor 80 mg daily, aspirin 81 mg daily Most recent echocardiogram obtained in June 2021 revealed ejection fraction 40-45%, mild mitral regurgitation, and mild tricuspid regurgitation Cardiac catheterization history: June [address] Lynn revealed in-stent restenosis lesion within the proximal LAD stent, 55% stenosis in the distal RCA, 55% stenosis in the mid circumflex. She underwent successful stent placement to the proximal LAD with Dr. Lynn. REVIEW OF SYSTEMS: At the time of my exam: CONSTITUTIONAL: Denies fever or chills. HEENT: Denies blurred vision, vision changes, or eye pain. Denies hemoptysis CARDIOVASCULAR: Denies chest pain. Denies orthopnea. Denies PND. Denies palpitations RESPIRATORY: + shortness of breath. GASTROINTESTINAL: Denies abdominal pain. Denies nausea or vomiting. HEMATOLOGIC: Denies bleeding disorders. GENITOURINARY: Denies any blood in urine. SKIN: Denies pruitis. Denies rash. PHYSICAL EXAM: VITAL SIGNS: Reviewed. GENERAL: Well-developed in no acute distress. HEENT: Head is normocephalic. Pupils are equal, round. Sclerae anicteric. Mucous membranes of the mouth are moist. Neck supple. No JVD or thyromegaly LUNGS: Respirations even and unlabored. Lungs diminished to auscultation bilaterally. HEART: Regular rate and rhythm. S1 and S2 heard. ABDOMEN: Soft. Nondistended. Nontender. EXTREMITIES: Normal range of motion. No clubbing or cyanosis. Peripheral pul ses intact. Trace lower extremity edema. Dressing to left lower extremity. NEUROLOGIC: Awake and alert. Oriented x 3. ASSESSMENT: Acute on chronic kidney disease Left foot second toe gangrene, s/p amputation receiving abx outpatient Acute on chronic systolic congestive heart failure Coronary artery disease with PCI Ischemic cardiomyopathy, EF 40-45% Diabetes mellitus Hypertension Hyperlipidemia PLAN: No need to repeat echo as this was performed in June 2021 Continue home cardiac medications Hold Valsartan secondary to acute renal failure No diuretics at this time secondary to acute renal failure. Nephrology following. Possible hemodialysis versus hospice care. Prognosis guarded Further recommendations pending patient course Nurse practitioner note has been reviewed by physician. Signing provider agrees with the documented findings, assessment, and plan of care. Past Medical History Past Medical History: Coronary Artery Disease (CAD), CVA/TIA, Diabetes Mellitus, Eye Disorder, Hearing Disorder / Deafness, Hypertension, Liver Disease, Myocardial Infarction ([place]), Osteoarthritis (OA), Sleep Apnea/CPAP/BIPAP, Syncope, Thyroid Disorder Additional Past Medical History / Comment(s): IDDM type II, neuropathy knees down bilaterally, ischemic cardiopmyopathy, 2008 small CVA with occasional word finding difficulty, R eye retinal bleed with some vision loss, bilateral diabetic retinopathy, fatty liver, chronic back pain, DDD< mild central canal stenosis, migraines, osteoporosis, UTI, bilateral tinnitis, BROCK no longer tolerates Cpap, benign thyroid nodules, CHI age 14, sycopal episodes as a child, sinus problems, wounds on feet Last Myocardial Infarction Date:: 07/2020 History of Any Multi-Drug Resistant Organisms: None Reported Past Surgical History: Breast Surgery, Heart Catheterization With Stent, Hysterectomy, Orthopedic Surgery, Tubal Ligation Additional Past Surgical History / Comment(s): PCI with stents in 06/2020 and 07/2020, several thyroid gland bxs, bilateral benign breast lumpectomies, D&c, bilateral feet 2 hammer toes each, R knee arthroscopy, low back injections, TTT, colonoscopies, bilateral cataract removals. Past Anesthesia/Blood Transfusion Reactions: No Reported Reaction, Motion Sickness Additional Past Anesthesia/Blood Transfusion Reaction / Comment(s): hypotension/ memory problems Date of Last Stent Placement:: 2019 Past Psychological History: Anxiety, Bipolar, Depression Additional Psychological History / Comment(s): Patient resides at [facility] with her Smoking Status: Never smoker Past Alcohol Use History: None Reported Past Drug Use History: None Reported - Past Family History Father Family Medical History: Cancer Additional Family Medical History / Comment(s): Father had lymphoma. He had LUNG, BONE, THROAT AND MOUTH CANCER Brother(s) Family Medical History: Myocardial Infarction ([place]) Additional Family Medical History / Comment(s): Muscle Disease, Rheumatic fever at 2 years old Mother Family Medical History: Cancer Additional Family Medical History / Comment(s): lung cancer- mother. She at the age of 79yrs from esophageal valencia after radiation-unable to eat. Patient states "mother had aneurysm". Medications and Allergies Home Medications Medication Instructions Recorded Confirmed Type Levothyroxine Sodium [Synthroid] 50 mcg PO DAILY@0600 08/21/17 09/19/21 History Cetirizine HCl [Zyrtec] 10 mg PO DAILY PRN 05/06/20 09/19/21 History Liothyronine Sodium [Cytomel] 5 mcg PO DAILY@0600 05/06/20 09/19/21 History Sertraline HCl [Zoloft] 50 mg PO DAILY@0805/06/20 09/19/21 History Docusate [Colace] 100 mg PO DAILY@1700 PRN 07/15/20 09/19/21 History Cholecalciferol (Vitamin D3) 125 mcg PO MOWEFR@1700 02/18/21 09/19/21 History [Vitamin D3 (5000 Iu)] ARIPiprazole [Abilify] 5 mg PO DAILY@0800 07/16/21 09/19/21 History Diclofenac Sodium Gel [Voltaren 1 applic TOPICAL QID PRN 07/16/21 09/19/21 History Gel] Nitroglycerin Sl Tabs [Nitrostat] 0.4 mg SL Q5M PRN 07/16/21 09/19/21 History rOPINIRole HCL [Requip] 0.5 mg PO HS@209907/16/21 09/19/21 History Acetaminophen Tab [Tylenol] 650 mg PO Q6HR PRN tab 07/29/21 09/19/21 Rx Albuterol Nebulized [Ventolin 2.5 mg INHALATION RT-Q4H PRN 08/15/21 09/19/21 H istory Nebulized] Aspirin 81 mg PO DAILY@169908/15/21 09/19/21 History Atorvastatin [Lipitor] 80 mg PO HS@209908/15/21 09/19/21 History Ferrous Sulfate [Iron (65 MG 325 mg PO DAILY@0808/15/21 09/19/21 History Elemental)] Furosemide [Lasix] 40 mg PO DAILY@0808/15/21 09/19/21 History Gabapentin [Neurontin] 300 mg PO BID@0800,209908/15/21 09/19/21 History INSULIN ASPART (NovoLOG) [NovoLOG 15 unit SQ TID@0700,1100,1630 08/15/21 09/19/21 History (formulary)] Insulin Glargine [Lantus Vial] 65 unit SQ HS@212908/15/21 09/19/21 History Liquacel 30 ml PO BID@0800,1700 08/15/21 09/19/21 History Na Phos,M-B/Na Phos,Di-Ba [Fleet 133 ml RECTAL DAILY PRN 08/15/21 09/19/21 History Adult] Saccharomyces Boulardii 250 mg PO DAILY@0800 08/15/21 09/19/21 History [Saccharomycin Df] Ticagrelor [Brilinta] 90 mg PO BID@0800,1700 08/15/21 09/19/21 History Valsartan [Diovan] 160 mg PO DAILY@0800 08/15/21 09/19/21 History bisacodyL [Dulcolax] 10 mg RECTAL DAILY PRN 08/15/21 09/19/21 History carvediloL [Coreg*] 12.5 mg PO BID@0800,1700 08/15/21 09/19/21 History Calcium Carbonate [Tums] 500 mg PO TID@0800,1200,1700 09/19/21 09/19/21 History Ceftazidime/Avibactam [Avycaz 2.5 0.94 gm IM BID@0800,2100 09/19/21 09/19/21 History Gram Vial] DAPTOmycin [Cubicin] 500 mg IV Q48H 09/19/21 09/19/21 History Magnesium Hydroxide [Milk of 7,200 mg PO DAILY PRN 09/19/21 09/19/21 History Magnesia Concentrate] glyBURIDE [Diabeta] 5 mg PO DAILY@0800 09/19/21 09/19/21 History Allergies Allergy/AdvReac Type Severity Reaction Status Date / Time Iodinated Contrast Media Allergy Swelling, Verified 09/19/21 18:10 [Iodinated Contrast Media - SHORTNESS IV Dye] OF BREATH latex Allergy Rash/Hives Verified 09/19/21 18:10 talc Allergy Rash/Hives Verified 09/19/21 18:10 adhesive tape AdvReac blisters Verified 09/19/21 18:10 amlodipine AdvReac ankle Verified 09/19/21 18:10 swelling hydralazine AdvReac Diarrhea Verified 09/19/21 18:10 metal Allergy Rash/Hives Uncoded 09/19/21 14:54 Physical Exam Vitals: Vital Signs Temp Pulse Resp BP Pulse Ox 09/22/21 08:00 98.5 F 69 20 119/66 91 L 09/22/21 02:05 97.8 F 111 H 16 101/67 91 L 09/21/21 19:00 97.6 F 109 H 17 100/58 100 09/21/21 14:00 97.9 F 65 20 153/75 100 Intake and Output 09/21/21 09/22/21 09/22/21 22:59 06:59 14:59 Output Total 200 50 Balance -200 -50 Output: Urine 200 50 Other: Voiding Method Indwelling Catheter Results 09/19/21 15:33 09/21/21 06:43 Current Medications Generic Name Dose Route Start Last Admin Trade Name Freq PRN Reason Stop Dose Admin Acetaminophen 650 mg 09/19/21 17:11 Acetaminophen Tab 325 Mg Tab PO Q6HR PRN Mild Pain or Fever > 100.5 Albuterol Sulfate 2.5 mg 09/19/21 22:19 09/21/21 09:10 Albuterol Nebulized 2.5 Mg/3 Ml INHALATION 2.5 mg RT-Q4H PRN Administration Shortness Of Breath Aripiprazole 5 mg 09/20/21 08:00 09/22/21 08:12 Aripiprazole 5 Mg Tab PO 5 mg DAILY@0800 [facility] Administration Aspirin 81 mg 09/20/21 17:00 09/21/21 15:43 Aspirin 81 Mg PO 81 mg DAILY@1700 IV[facility] Administration Atorvastatin Calcium 80 mg 09/20/21 21:00 09/21/21 20:54 Atorvastatin 80 Mg Tab PO 80 mg HS@2100 [facility] Administration Bisacodyl 10 mg 09/19/21 23:00 Bisacodyl 10 Mg Supp RECTAL DAILY PRN Constipation Calcium Carbonate/Glycine 500 mg 09/20/21 08:00 09/22/21 08:12 Calcium Carbonate 500 Mg Chewable PO 500 mg TID@0800,1200,1700 [facility] Administration Carvedilol 12.5 mg 09/20/21 08:00 09/22/21 08:12 Carvedilol 12.5 Mg Tab PO 12.5 mg BID@0800,1700 [facility] Administration Cholecalciferol 125 mcg 09/21/21 17:00 09/21/21 15:43 Cholecalciferol 25 Mcg (1000 Iu) Tablet PO 125 mcg MOWEFR@1700 [facility] Administration Docusate Sodium 100 mg 09/20/21 17:00 Docusate 100 Mg Cap PO DAILY@1700 PRN Constipation Ferrous Sulfate 325 mg 09/20/21 08:00 09/22/21 08:12 Ferrous Sulfate 325 Mg Tab PO 325 mg DAILY@0800 [facility] Administration Gabapentin 300 mg 09/20/21 09:00 09/22/21 08:12 Gabapentin 300 Mg Cap PO 300 mg DAILY [facility] Administration Ceftriaxone Sodium 1 gm/ 50 mls @ 100 mls/hr 09/20/21 09:00 09/22/21 09:37 Sodium Chloride IVPB 100 mls/hr Q24HR [facility] Administration Insulin Aspart 15 unit 09/21/21 07:30 09/22/21 08:06 Insulin Aspart (Novolog) 100 Unit/Ml Vial SQ Not Given AC-TID [facility] Insulin Detemir 65 unit 09/22/21 04:35 Insulin Detemir (Levemir) 100 Unit/Ml Syr SQ HS@2130 [facility] Levothyroxine Sodium 50 mcg 09/20/21 06:00 09/22/21 05:29 Levothyroxine 50 Mcg Tab PO 50 mcg DAILY@0600 [facility] Administration Loratadine 10 mg 09/20/21 09:00 Loratadine 10 Mg Tab PO DAILY PRN Allergy Symptoms Naloxone HCl 0.2 mg 09/19/21 17:11 Naloxone 0.4 Mg/Ml 1 Ml Vial IV Q2M PRN Opioid Reversal Nitroglycerin 0.4 mg 09/19/21 22:28 Nitroglycerin Sl Tabs 0.4 Mg Tab SUBLINGUAL Q5M PRN Chest Pain Pantoprazole Sodium 40 mg 09/21/21 10:30 09/22/21 08:09 Pantoprazole 40 Mg/10 Ml Vial IVP 40 mg DAILY [facility] Administration Ropinirole HCl 0.5 mg 09/20/21 21:00 09/21/21 20:52 Ropinirole Hcl 0.25 Mg Tab PO 0.5 mg HS@2100 [facility] Administration Sertraline HCl 200 mg 09/22/21 08:00 09/22/21 08:12 Sertraline 100 Mg Tab PO 200 mg DAILY@0800 [facility] Administration Ticagrelor 90 mg 09/20/21 08:00 09/22/21 08:12 Ticagrelor 90 Mg Tab PO 90 mg BID@0800,1700 [facility] Administration Intake and Output 09/21/21 09/22/21 09/22/21 22:59 06:59 14:59 Output Total 200 50 Balance -200 -50 Output: Urine 200 50 Other: Voiding Method Indwelling Catheter 09/19/21 15:33 09/21/21 06:43
[2021-09-22] MEDS ORDERED: FUROSEMIDE 10 MG/ML 10 ML VIAL IV STA (10:40)
--- NOTE | 2021-09-22 10:41 | P.PN ---
Subjective Patient is seen in follow-up for acute kidney injury with progressively worsening renal function over the last month. Creatinine 6.0 yesterday. Re sting in bed. Denies chest pain or shortness of breath. Oral intake poor. Vital signs are stable. General: The patient appeared well nourished and normally developed. HEENT: Head exam is unremarkable. LUNGS: Breath sounds decreased. HEART: Rate and Rhythm are regular. ABDOMEN: Soft, no distention. EXTREMITITES: Trace edema. Objective - Vital Signs Vital signs: Vital Signs Temp 98.5 F 09/22/21 08:00 Pulse 69 09/22/21 08:00 Resp 20 09/22/21 08:00 BP 119/66 09/22/21 08:00 Pulse Ox 91 L 09/22/21 08:00 Intake & Output 09/21/21 09/22/21 09/22/21 18:59 06:59 18:59 Intake Total 168 Output Total 200 50 Balance -32 -50 Weight 136.078 kg Intake: Intake, IV Titration 50 Amount cefTRIAXone 1 gm In 50 Sodium Chloride 0.9% 50 ml @ 100 mls/hr IVPB Q24HR [facility] Rx#:[id number] Oral 118 Output: Urine 200 50 Other: Voiding Method Indwelling Catheter Indwelling Catheter - Labs CBC & Chem 7: 09/19/21 15:33 09/21/21 06:43 Labs: Abnormal Lab Results - Last 24 Hours (Table) 09/20/21 09/21/21 09/21/21 Range/Units 05:29 11:47 16:46 POC Glucose (mg/dL) 126 H 111 H (75-99) mg/dL Total Protein (PEP) 5.8 L (6.2-8.2) g/dL NENA Screen POSITIVE A (NEGATIVE) Double Strand DNA Ab Indetermin A (NEGATIVE) 09/21/21 Range/Units 20:27 POC Glucose (mg/dL) 145 H (75-99) mg/dL Total Protein (PEP) (6.2-8.2) g/dL NENA Screen (NEGATIVE) Double Strand DNA Ab (NEGATIVE) Assessment and Plan Plan: Assessment: 1. Acute kidney injury secondary to ATN secondary to infection. Urine eosinophils negative. No evidence of hydronephrosis on ultrasound. Creatinine as of 08/29/2021 was 0.9 - 6.0 as of yesterday. 2. Left foot infection with recent amputation of the first 3 toes. On antibiotics. 3. Acute on chronic systolic CHF with ejection fraction of 40-45%. 4. Peripheral arterial disease status post left lower extremity intervention in July 2021. 4. History of coronary disease status post LAD stenting in June 2021. 6. Diabetes mellitus. 7. UTI with chronic Brizuela catheter. Plan: Avoid nephrotoxins. Stopped Fleet enemas. Continue to hold valsartan. Follow-up serologies - patient has positive NENA an indeterminate double-stranded DNA. Complement levels are normal. ANCA negative. Patient is not a candidate for kidney biopsy due to her overall health and comorbidities. She will not be able to tolerate immunosuppressive therapy. Case was discussed case with patient's sister who is the power of software licensing executive. Patient is not mobile and is an [place] resident. Quality of life is quite poor. Continue to assess daily. Overall prognosis guarded. Patient is not a good candidate for long-term renal replacement therapy but will attempt if patient and family agreeable. Lasix 80 mg IV once today. Add Aranesp.
[2021-09-22] MEDS ORDERED: DARBEPOETIN ALFA 40 MCG/0.4 ML SYRINGE SQ SCH (11:00)
[2021-09-22 11:07] LABS: Anisocytosis Slight; Basophils # (A) 0.1 k/uL (0-0.2); Basophils % (A) 1 %; Eosinophils # (A) 0.7 k/uL (0-0.7); Eosinophils % (A) 7 %; HGB 7.5 gm/dL (11.4-16.0); Hypochromasia Moderate; Lymphocytes # (A) 1.3 k/uL (1.0-4.8); Lymphocytes % (A) 12 %; MCHC 31.4 g/dL (31.0-37.0); MCV 86.1 fL (80.0-100.0); Mean Platelet Volume 7.6; Monocytes # (A) 0.5 k/uL (0-1.0); Monocytes % (A) 5 %; Neutrophils # (A) 7.9 k/uL (1.3-7.7); Neutrophils % (A) 75 %; Platelet Count 288 k/uL (150-450); Poikilocytosis Slight; RBC 2.78 m/uL (3.80-5.40); WBC 10.6 k/uL (3.8-10.6)
[2021-09-22 11:23] LABS: Magnesium 2.7 mg/dL (1.5-2.4)
[2021-09-22 11:27] LABS: Glucose,Whole Blood 75 mg/dL (75-99)
[2021-09-22 11:58] LABS: African American GFR (CKD) 6.4 (60.0-200.0); Anion Gap 16.8 mmol/L (4.00-12.00); BUN/Creat Ratio 14.33 Ratio (12.00-20.00); Blood Urea Nitrogen 97.6 mg/dL (9.0-27.0); Calcium 9.9 mg/dL (8.7-10.3); Carbon Dioxide 20.7 mmol/L (21.6-31.8); Non-African American GFR(CKD) 5.5 (60.0-200.0); Potassium 4.2 mmol/L (3.5-5.5)
--- NOTE | 2021-09-22 15:30 | P.PN ---
Subjective Progress Note Date: 09/22/21 Karly Goyal is a 71 yo F with PMH CAD s/p stenting, PAD, osteomyelitis and amputation of L 2nd and 3rd toes approximately 1 month ago, CKD, T2DM who presented to the ED from her halfway with increasing weakness and was found to be in acute renal failure. After her amputation she was discharged on dapto mycin and avycaz, pt continued on these abx and states she had not been moving much. On her inital presentation pt hypertensive, WBC 8.6k, Hgb 7.9, Cr 5.16. Abd US no renal obstruction, UA with negative nitrite, pos bacteria. 09/22/2021 maintained on IV antibiotics as per infectious disease. Reports persistent fatigue, denies pain. Denies chest pain, palpitations or increasing shortness of breath. Nephrology updated both patient and sister, who is patient's power of litigation attorney associate regarding patient is not a good candidate for long- term renal replacement therapy but would proceed if patient/family willing. Son and grandson at bedside, updated. Discussing proceeding with hemodialysis versus hospice currently. Evaluated by cardiology with recommendations noted and appreciated. Diuretics currently on hold secondary to renal function. Objective - Vital Signs Vital signs: Vital Signs Temp 97.9 F 09/22/21 14:00 Pulse 109 H 09/22/21 14:00 Resp 20 09/22/21 14:00 BP 115/73 09/22/21 14:00 Pulse Ox 100 09/22/21 14:00 Intake & Output 09/21/21 09/22/21 09/22/21 18:59 06:59 18:59 Intake Total 168 100 Output Total 200 50 Balance -32 -50 100 Weight 136.078 kg Intake: Intake, IV Titration 50 100 Amount DAPTOmycin 500 mg In 50 Sodium Chloride 0.9% 50 ml @ 100 mls/hr IVPB Q48H [facility] Rx#:[id number] cefTRIAXone 1 gm In 50 50 Sodium Chloride 0.9% 50 ml @ 100 mls/hr IVPB Q24HR [facility] Rx#:[id number] Oral 118 Output: Urine 200 50 Other: Voiding Method Indwelling Catheter Indwelling Catheter Indwelling Catheter - Exam General: elderly female, sitting up in bed, NAD. Vitals reviewed Eyes: PERRL, EOMI, conjunctiva normal HENT: normocephalic, mucus membranes moist Neck: supple, no JVD Lungs: normal respiratory effort, no wheezes or rales CV: Regular rate and rhythm, no murmur. Peripheral pulses 2+ Abdomen: soft, nondistended, no organomegaly. Positive bowel sounds Skin: warm and dry. Minimal edema, Left foot dressing clean dry and intact. Neuro: A&Ox3, depressed mood and affect - Labs CBC & Chem 7: 09/22/21 09:32 09/22/21 06:21 Labs: Abnormal Lab Results - Last 24 Hours (Table) 09/20/21 09/21/21 09/21/21 Range/Units 05:29 16:46 20:27 RBC (3.80-5.40) m/uL Hgb (11.4-16.0) gm/dL Hct (34.0-46.0) % RDW (11.5-15.5) % Neutrophils # (1.3-7.7) k/uL Carbon Dioxide (21.6-31.8) mmol/L Anion Gap (4.00-12.00) mmol/L BUN (9.0-27.0) mg/dL Creatinine (0.6-1.5) mg/dL Est GFR (CKD-EPI)AfAm (60.0-200.0) Est GFR (CKD-EPI)NonAf (60.0-200.0) POC Glucose (mg/dL) 111 H 145 H (75-99) mg/dL Magnesium (1.5-2.4) mg/dL NENA Screen POSITIVE A (NEGATIVE) Double Strand DNA Ab Indetermin A (NEGATIVE) Crossmatch 09/22/21 09/22/21 09/22/21 Range/Units 06:21 09:32 09:32 RBC 2.78 L (3.80-5.40) m/uL Hgb 7.5 L (11.4-16.0) gm/dL Hct 24.0 L (34.0-46.0) % RDW 16.0 H (11.5-15.5) % Neutrophils # 7.9 H (1.3-7.7) k/uL Carbon Dioxide 20.7 L (21.6-31.8) mmol/L Anion Gap 16.80 H (4.00-12.00) mmol/L BUN 97.6 H (9.0-27.0) mg/dL Creatinine 6.8 H (0.6-1.5) mg/dL Est GFR (CKD-EPI)AfAm 6.4 L (60.0-200.0) Est GFR (CKD-EPI)NonAf 5.5 L (60.0-200.0) POC Glucose (mg/dL) (75-99) mg/dL Magnesium 2.7 H (1.5-2.4) mg/dL NENA Screen (NEGATIVE) Double Strand DNA Ab (NEGATIVE) Crossmatch See Detail Microbiology - Last 24 Hours (Table) 09/19/21 15:33 Urine Culture - Final Urine,Voided My albicans Assessment and Plan Assessment: Acute on chronic renal failure, stage III. Acute secondary to ATN related to infection Acute on chronic systolic CHF exacerbation Osteomyelitis of fifth metatarsal, status post left foot first and second toe amputation 08/16. CAD PAD Diabetes mellitus type 2 Plan: Continue on current medication regime, monitoring and symptomatic treatment. Son and grandson at bedside, updated patient and family. Diuretics on hold secondary to acute renal failure. Per nephrology patient is not a good candidate for long-term renal replacement therapy. Patient and family currently discussing hemodialysis versus hospice. Questions answered, support given. Irving joya for informational hospice in place.Prognosis guarded given multiple complex medical issues. The impression and plan of care has been dictated as directed. : I performed a history and examination of this patient, discussed the same with the dictator. I agree with the dictator's note ,documented as a scribe. Any additional findings or plans will be noted.
[2021-09-22] MEDS: ASPIRIN 81 MG PO SCH (15:48)
[2021-09-22 16:58] LABS: Albumin 2.55 g/dL (3.80-4.90); Gamma Globulin 0.93 g/dL (0.70-1.50)
[2021-09-22 16:58] LABS: Glucose,Whole Blood 119 mg/dL (75-99)
--- NOTE | 2021-09-22 19:43 | PN ---
PROGRESS NOTE DATE OF SERVICE: 09/22/2021 REASON FOR FOLLOWUP: Left foot ulcer and UTI. INTERVAL HISTORY: The patient is afebrile. The patient seems to be slightly more awake and alert today. She is breathing comfortably. No chest pain or cough. No abdominal pain or diarrhea. PHYSICAL EXAMINATION: Blood pressure 158/73 with a pulse of 109, temperature 97.9. She is 100% on 4 L nasal cannula. General description is an elderly female lying in bed in no distress. RESPIRATORY SYSTEM: Unlabored breathing. Clear to auscultation anteriorly. HEART: S1, S2. Regular rate and rhythm. ABDOMEN: Soft. No tenderness. Left foot is currently dressed. No obvious drainage on the dressing. LABS: Hemoglobin 7.5, white count 10.6. Creatinine is 6.8. Urine showing My albicans. DIAGNOSTIC IMPRESSION AND PLAN: 1. Patient with a catheter-associated urinary tract infection. Urine is showing My albicans. Antibiotic will be switched to Diflucan. Discontinue the Rocephin. 2. Patient with left foot gangrene, status post amputation. Underlying infection has been adequately treated, and the patient will be monitored closely off antibiotic therapy. Continue supportive care. MMODL / IJN: [id number] /
[2021-09-22 21:01] LABS: Glucose,Whole Blood 104 mg/dL (75-99)
[2021-09-22] MEDS: ATORVASTATIN 80 MG TAB PO SCH (21:30)
[2021-09-22] MEDS: FLUCONAZOLE 100 MG TAB PO SCH (22:38)
[2021-09-23] MEDS: LEVOTHYROXINE 50 MCG TAB PO SCH (05:38)
[2021-09-23 06:42] LABS: Glucose,Whole Blood 123 mg/dL (75-99)
[2021-09-23] MEDS: INSULIN ASPART (NovoLOG) 100 UNIT/ML VIAL SQ SCH ×2 (07:52→12:10)
[2021-09-23] MEDS: PANTOPRAZOLE 40 MG/10 ML VIAL IVP SCH (07:59)
[2021-09-23] MEDS: FERROUS SULFATE 325 MG TAB PO SCH (07:59)
[2021-09-23] MEDS: FLUCONAZOLE 100 MG TAB PO SCH (07:59)
[2021-09-23] MEDS: SERTRALINE 100 MG TAB PO SCH (07:59)
[2021-09-23] MEDS: CALCIUM CARBONATE 500 MG CHEWABLE PO SCH ×2 (07:59→12:13)
[2021-09-23] MEDS: GABAPENTIN 300 MG CAP PO SCH (07:59)
[2021-09-23] MEDS: carvediloL 12.5 MG TAB PO SCH (07:59)
[2021-09-23] MEDS: TICAGRELOR 90 MG TAB PO SCH (08:00)
[2021-09-23] MEDS: ARIPiprazole 5 MG TAB PO SCH (08:00)
[2021-09-23 08:28] LABS: African American GFR (CKD) 5 (>60 ml/min/1.73 sqM); Anion Gap 12 mmol/L; Calcium 9.8 mg/dL (8.4-10.2); Carbon Dioxide 24 mmol/L (22-30); Chloride 101 mmol/L (98-107); Glucose 107 mg/dL (74-99); Magnesium 2.8 mg/dL (1.6-2.3); Non-African American GFR(CKD) 4 (>60 ml/min/1.73 sqM); Potassium 4.5 mmol/L (3.5-5.1); Sodium 137 mmol/L (137-145)
[2021-09-23 08:33] LABS: Blood Urea Nitrogen 103 mg/dL (7-17)
[2021-09-23 08:42] VITALS: BP 97/55; PULSE 107; RESP 18; TEMP 98.2
--- NOTE | 2021-09-23 10:16 | P.DS ---
Providers Date of admission: 09/19/21 17:52 Expected date of discharge: 09/23/21 Attending physician: Boris Galeano MD Consults: 09/19/21 17:12 Consult Physician Routine Consulting Provider: Dwain Brice Consult Reason/Comments: AYSHA Do you want consulting provider notified?: Yes 09/20/21 10:51 Consult Physician Routine Consulting Provider: Celestina Peck Consult Reason/Comments: left foot infection Do you want consulting provider notified?: Yes Primary care physician: Boris Galeano MD Hospital Course: Final Diagnoses: Acute on chronic renal failure, stage III. Acute secondary to ATN related to infection Acute on chronic systolic CHF exacerbation Osteomyelitis of fifth metatarsal, status post left foot first and second toe amputation 08/16. CAD PAD Diabetes mellitus type 2 Acute UTI secondary to chronic Brizuela catheter with My albicans. Hospital course:Karly Goyal is a 71 yo F with PMH CAD s/p stenting, PAD, osteomyelitis and amputation of L 2nd and 3rd toes approximately 1 month ago, CKD, T2DM who presented to the ED from her residential with increasing weakness and was found to be in acute renal failure. After her amputation she was discharged on daptomycin and avycaz, pt continued on these abx and states she had not been moving much. On her inital presentation pt hypertensive, WBC 8.6k, Hgb 7.9, Cr 5.16. Abd US no renal obstruction, UA with negative nitrite, pos bacteria. 09/22/2021 maintained on IV antibiotics as per infectious disease. Reports persistent fatigue, denies pain. Denies chest pain, palpitations or increasing shortness of breath. Nephrology updated both patient and sister, who is patient's power of attorney recruiter regarding patient is not a good candidate for long- term renal replacement therapy but would proceed if patient/family willing. Son and grandson at bedside, updated. Discussing proceeding with hemodialysis versus hospice currently. Evaluated by cardiology with recommendations noted and appreciated. Diuretics currently on hold secondary to renal function. Son and grandson at bedside, updated patient and family. Diuretics on hold secondary to acute renal failure. Per nephrology patient is not a good candidate for long-term renal replacement therapy. Patient and family currently discussing hemodialysis versus hospice. Questions answered, support given. Consult for informational hospice in place.Prognosis guarded given multiple complex medical issues. Patient has decided to proceed with hospice. Patient will be discharged home with hospice in a stable condition with guarded prognosis. The impression and plan of care has been dictated as directed. : I performed a history and examination of this patient, discussed the same with the dictator. I agree with the dictator's note ,documented as a scribe. Any additional findings or plans will be noted. Patient Condition at Discharge: Stable Plan - Discharge Summary Discharge Rx Participant: No New Discharge Prescriptions: New Glimepiride [Amaryl] 4 mg PO DAILY #30 tab Fluconazole [Diflucan] 100 mg PO DAILY #2 tab Metoclopramide [Reglan] 5 mg PO ACHS #20 tab Ondansetron Odt [Zofran Odt] 4 mg PO Q8HR PRN #30 tab PRN Reason: Nausea Discontinued Levothyroxine Sodium [Synthroid] 50 mcg PO DAILY@0600 Liothyronine Sodium [Cytomel] 5 mcg PO DAILY@0600 Cholecalciferol (Vitamin D3) [Vitamin D3 (5000 Iu)] 125 mcg PO MOWEFR@1700 Aspirin 81 mg PO DAILY@1700 Ferrous Sulfate [Iron (65 MG Elemental)] 325 mg PO DAILY@0800 INSULIN ASPART (NovoLOG) [NovoLOG (formulary)] 15 unit SQ TID@0700,1100,1630 Saccharomyces Boulardii [Saccharomycin Df] 250 mg PO DAILY@0800 DAPTOmycin [Cubicin] 500 mg IV Q48H Diclofenac Sodium Gel [Voltaren Gel] 1 applic TOPICAL QID PRN PRN Reason: Leg pain Atorvastatin [Lipitor] 80 mg PO HS@2100 Insulin Glargine [Lantus Vial] 65 unit SQ HS@2130 Ticagrelor [Brilinta] 90 mg PO BID@0800,1700 Valsartan [Diovan] 160 mg PO DAILY@0800 Ceftazidime/Avibactam [Avycaz 2.5 Gram Vial] 0.94 gm IM BID@0800,2100 glyBURIDE [Diabeta] 5 mg PO DAILY@0800 No Action Sertraline HCl [Zoloft] 50 mg PO DAILY@0800 Cetirizine HCl [Zyrtec] 10 mg PO DAILY PRN PRN Reason: Allergy Symptoms Docusate [Colace] 100 mg PO DAILY@1700 PRN PRN Reason: Constipation Nitroglycerin Sl Tabs [Nitrostat] 0.4 mg SL Q5M PRN PRN Reason: Chest Pain Acetaminophen Tab [Tylenol] 650 mg PO Q6HR PRN tab PRN Reason: Fever And/ Or Pain Liquacel 30 ml PO BID@0800,1700 Calcium Carbonate [Tums] 500 mg PO TID@0800,1200,1700 Magnesium Hydroxide [Milk of Magnesia Concentrate] 7,200 mg PO DAILY PRN PRN Reason: Constipation rOPINIRole HCL [Requip] 0.5 mg PO HS@2100 ARIPiprazole [Abilify] 5 mg PO DAILY@0800 Albuterol Nebulized [Ventolin Nebulized] 2.5 mg INHALATION RT-Q4H PRN PRN Reason: Shortness Of Breath bisacodyL [Dulcolax] 10 mg RECTAL DAILY PRN PRN Reason: Constipation carvediloL [Coreg*] 12.5 mg PO BID@0800,1700 Furosemide [Lasix] 40 mg PO DAILY@0800 Gabapentin [Neurontin] 300 mg PO BID@0800,2100 Na Phos,M-B/Na Phos,Di-Ba [Fleet Adult] 133 ml RECTAL DAILY PRN PRN Reason: Constipation Discharge Medication List Cetirizine HCl [Zyrtec] 10 mg PO DAILY PRN 05/06/20 [History] Sertraline HCl [Zoloft] 50 mg PO DAILY@0800 05/06/20 [History] Docusate [Colace] 100 mg PO DAILY@1700 PRN 07/15/20 [History] ARIPiprazole [Abilify] 5 mg PO DAILY@0800 07/16/21 [History] Nitroglycerin Sl Tabs [Nitrostat] 0.4 mg SL Q5M PRN 07/16/21 [History] rOPINIRole HCL [Requip] 0.5 mg PO HS@2100 07/16/21 [History] Acetaminophen Tab [Tylenol] 650 mg PO Q6HR PRN tab 07/29/21 [Rx] Albuterol Nebulized [Ventolin Nebulized] 2.5 mg INHALATION RT-Q4H PRN 08/15/21 [History] Furosemide [Lasix] 40 mg PO DAILY@0800 08/15/21 [History] Gabapentin [Neurontin] 300 mg PO BID@0800,2100 08/15/21 [History] Liquacel 30 ml PO BID@0800,1700 08/15/21 [History] Na Phos,M-B/Na Phos,Di-Ba [Fleet Adult] 133 ml RECTAL DAILY PRN 08/15/21 [History] bisacodyL [Dulcolax] 10 mg RECTAL DAILY PRN 08/15/21 [History] carvediloL [Coreg*] 12.5 mg PO BID@0800,1700 08/15/21 [History] Calcium Carbonate [Tums] 500 mg PO TID@0800,1200,1700 09/19/21 [History] Magnesium Hydroxide [Milk of Magnesia Concentrate] 7,200 mg PO DAILY PRN 09/19/21 [History] Fluconazole [Diflucan] 100 mg PO DAILY #2 tab 09/23/21 [Rx] Glimepiride [Amaryl] 4 mg PO DAILY #30 tab 09/23/21 [Rx] Metoclopramide [Reglan] 5 mg PO ACHS #20 tab 09/23/21 [Rx] Ondansetron Odt [Zofran Odt] 4 mg PO Q8HR PRN #30 tab 09/23/21 [Rx] Follow up Appointment(s)/Referral(s): Boris Galeano MD [Primary Care Provider] - As Needed Hospice,[facility] [NON-STAFF] - As Needed Activity/Diet/Wound Care/Special Instructions: Home with hospice Discharge Disposition: HOME WITH HOSPICE
--- NOTE | 2021-09-23 16:06 | P.PN ---
Progress Note - Text Progress Note Date: 09/23/21 REASON FOR FOLLOWUP: Left foot ulcer and UTI. INTERVAL HISTORY: The patient remains to be afebrile. The patient is breathing comfortably. No chest pain or cough. No abdominal pain or diarrhea. PHYSICAL EXAMINATION: Blood pressure 150/70 with a pulse of 90, temperature 97.9. She is 100% on 4 L nasal cannula. General description is an elderly female lying in bed in no distress. RESPIRATORY SYSTEM: Unlabored breathing. Clear to auscultation anteriorly. HEART: S1, S2. Regular rate and rhythm. ABDOMEN: Soft. No tenderness. Left foot is currently dressed. No obvious drainage on the dressing. LABS: Reviewed DIAGNOSTIC IMPRESSION AND PLAN: 1. Patient with a catheter-associated urinary tract infection. Urine is showing My albicans. Patient is on Diflucan. 2. Patient with left foot gangrene, status post amputation. Underlying infection has been adequately treated. 3. Patient did have worsening of her kidney function and the family refuses status is going for hospice Will follow the family wishes no need for any antibiotic or antifungal on discharge
[2021-09-24] MEDS ORDERED: PANTOPRAZOLE 40 MG TABLET PO SCH (07:30)
[2021-09-24 09:52] LABS: ANA Pattern Homogeneous
== END 2021-09-23 13:30 | disposition hospice, home (50) | DRG 291 ==
LOC: EC 14:42 → 4SSUR 17:52
PROVIDERS: ADMIT Family Medicine; ATTEND Family Medicine
DX: I11.0 Hypertensive heart disease with heart failure (principal); N17.0 Acute kidney failure with tubular necrosis; T83.511A Infection and inflammatory reaction due to indwelling urethral catheter, initial encounter; N39.0 Urinary tract infection, site not specified; E11.52 Type 2 diabetes mellitus with diabetic peripheral angiopathy with gangrene; Z16.24 Resistance to multiple antibiotics; M86.8X7 Other osteomyelitis, ankle and foot; Z20.822 Contact with and (suspected) exposure to COVID-19; I50.23 Acute on chronic systolic (congestive) heart failure; I25.10 Atherosclerotic heart disease of native coronary artery without angina pectoris; E11.319 Type 2 diabetes mellitus with unspecified diabetic retinopathy without macular edema; E11.51 Type 2 diabetes mellitus with diabetic peripheral angiopathy without gangrene; K76.0 Fatty (change of) liver, not elsewhere classified; Y84.6 Urinary catheterization as the cause of abnormal reaction of the patient, or of later complication, without mention of misadventure at the time of the procedure; E11.22 Type 2 diabetes mellitus with diabetic chronic kidney disease; E11.69 Type 2 diabetes mellitus with other specified complication; I13.0 Hypertensive heart and chronic kidney disease with heart failure and stage 1 through stage 4 chronic kidney disease, or unspecified chronic kidney disease; I25.5 Ischemic cardiomyopathy; N18.30 Chronic kidney disease, stage 3 unspecified; B95.62 Methicillin resistant Staphylococcus aureus infection as the cause of diseases classified elsewhere; E11.621 Type 2 diabetes mellitus with foot ulcer; E78.5 Hyperlipidemia, unspecified; F31.9 Bipolar disorder, unspecified; F41.9 Anxiety disorder, unspecified; M81.0 Age-related osteoporosis without current pathological fracture; H54.3 Unqualified visual loss, both eyes; H91.90 Unspecified hearing loss, unspecified ear; I25.2 Old myocardial infarction; L97.529 Non-pressure chronic ulcer of other part of left foot with unspecified severity; B96.5 Pseudomonas (aeruginosa) (mallei) (pseudomallei) as the cause of diseases classified elsewhere; M48.00 Spinal stenosis, site unspecified; G43.909 Migraine, unspecified, not intractable, without status migrainosus; I08.1 Rheumatic disorders of both mitral and tricuspid valves; Z79.02 Long term (current) use of antithrombotics/antiplatelets; Z79.82 Long term (current) use of aspirin; Z79.899 Other long term (current) drug therapy; Z86.73 Personal history of transient ischemic attack (TIA), and cerebral infarction without residual deficits; Z90.710 Acquired absence of both cervix and uterus; Z91.041 Radiographic dye allergy status; Z91.048 Other nonmedicinal substance allergy status; Z91.040 Latex allergy status; Z88.1 Allergy status to other antibiotic agents; Z95.5 Presence of coronary angioplasty implant and graft; Z98.42 Cataract extraction status, left eye; Z98.41 Cataract extraction status, right eye; Z98.51 Tubal ligation status; Z79.890 Hormone replacement therapy; Z79.4 Long term (current) use of insulin
CPT/HCPCS: 36415; 71046; 76770; 80048; 80053; 80074; 81001; 82550; 82570; 83540; 83550; 83605; 83735; 83880; 84100; 84156; 84165; 84443; 84484; 85025; 85610; 85652; 85730; 86038; 86039; 86140; 86160; 86162; 86225; 86255; 86334; 86335; 86850; 86900; 86901; 86920; 87086; 87205; 87635; 93005; 94640; 99285